=== PATIENT | male | born 1965 | race Caucasian/White ===

== ENCOUNTER → 2020-07-06 13:48 | Outpatient (CLI) | payer BC, SELFPAY ==
--- NOTE | ~2020-07-06 | US_ITS ---
EXAMINATION: US renal BI EXAM DATE: 07/06/2020 14:06 INDICATION: Hematuria, CKD Stage 1. TECHNIQUE: Multiple grayscale and Doppler images of the kidneys were obtained (by a technologist who performed the scan) and subsequently reviewed. There is no prior study for comparison. FINDINGS: Right kidney: There is normal contour and echogenicity. It measures 13.0 x 6.5 x 7.0 centimeters. T here are no focal renal lesions identified. There is no hydronephrosis. Left kidney: There is normal contour and echogenicity. It measures 11.4 x 6.2 x 6.4 centimeters. Th ere are no focal renal lesions identified. There is no hydronephrosis. Bladder unremarkable. There is diffuse bladder wall mild thickening, with trabecular wall, could ind icate chronic cystitis. IMPRESSION: 1. Sonographically unremarkable kidneys. 2. Mild bladder wall thickening, trabeculation, could indicate chronic cystitis. Reviewed, dictated and finalized at location A. [employer] IMPRESSION: 1. Sonographically unremarkable kidneys. 2. Mild bladder wall thickening, trabeculation, could indicate chronic cystiti s.
== END ==
PROVIDERS: PCP Internal Medicine; Visit Provider Internal Medicine
DX: R31.9 Hematuria, unspecified (principal); I12.9 Hypertensive chronic kidney disease with stage 1 through stage 4 chronic kidney disease, or unspecified chronic kidney disease; N18.31 Chronic kidney disease, stage 3a
CPT/HCPCS: 76775

== ENCOUNTER 2020-08-02 14:06 | Outpatient (CLI) | payer BC, SELFPAY ==
--- NOTE | ~2020-08-02 | XR_ITS ---
XR abdomen/kub 1V DATE: 08/02/2020 14:40 INDICATION: Microscopic hematuria TECHNIQUE: AP projection, 2 views COMPARISON: August 02, 2020 CT abdomen pelvis FINDINGS: There is moderately prominent amount of fecal material in the rectum and colon but no appar ent bowel obstruction. The psoas shadows are intact. No visceromegaly or significant abnormal calcification is evident. The lung bases appear clear. Heart size appears normal. IMPRESSION: No urinary tract calcifications are noted Moderately prominent amount of fecal material in the rectum and colon Reviewed, dictated and finalized at [facility]. Reviewed, dictated and finalized at location B. [employer]
--- NOTE | ~2020-08-02 | CT_ITS ---
EXAMINATION: CT abdomen pelvis wo con DATE: 08/02/2020 15:19 INDICATION: Microscopic hematuria TECHNIQUE: Computed tomography (CT) of the abdomen and pelvis was performed without intravenous contr ast. Automated exposure control and iterative reconstruction technique were employed. Exam dose: 814 .45 mGy-cm total exam DLP. COMPARISON: 07/06/2020 bilateral renal ultrasound August 02, 2020 KUB FINDINGS: Right lower lobe calcified pulmonary granuloma. No pulmonary infiltrate or consolidation at the included lung bases. Normal heart size. No pericardial or pleural effusion. Small sliding hiatal hernia. Calcified hepatic and splenic granulomas. The liver, gallbladder, bile ducts, spleen, pancreas and pa ncreatic duct are otherwise unremarkable. Normal morphology of the adrenal glands. No urinary tract calculus or hydroureteronephrosis is detected. No renal mass lesion is evident on this limited noncontrast examination. Normal caliber of the abdominal aorta. No intraperitoneal or retroperitoneal or pelvic mass lesion or adenopathy or ascites. Normal appendix. Mild prostate enlargement and multiple prostate calcifications. Mild to moderate diffuse thickening o f the urinary bladder wall. There is a prominent amount of fecal material in the rectum and colon. Occasional colonic diverticula ; no evidence of diverticulitis. No bowel obstruction is evident. No bowel wall thickening, pneumatos is or intraperitoneal free air. Prominent degenerative disc disease and posterior spurring at L4-5. No suspicious osteolytic or osteoblastic lesions are noted. IMPRESSION: No urinary tract calculus or hydroureteronephrosis No apparent urinary tract mass lesion is evident on this limited noncontrast examination Mild prostate enlargement and calcification. Mild to moderate thickening of the urinary bladder wall Reviewed, dictated and finalized at [facility]. Reviewed, dictated and finalized at location B. [employer] IMPRESSION: No urinary tract calculus or hydroureteronephrosis No apparent urinary tract mass lesion is evident on this limited noncontrast ex amination Mild prostate enlargement and calcification. Mild to moderate thickening of the urinary bladder wall
[2020-08-02 14:47] LABS: Estimated Glomerular Filt Rate 26
== END 2020-08-02 14:07 | disposition home or self-care (01) ==
PROVIDERS: PCP Internal Medicine; Visit Provider Urology
DX: R31.29 Other microscopic hematuria (principal); N40.1 Benign prostatic hyperplasia with lower urinary tract symptoms
CPT/HCPCS: 74018; 74176

== ENCOUNTER 2022-02-01 00:10 | Day surgery (SDC) | payer BC, SELFPAY ==
[2022-01-25 11:26] VITALS: BMI 30.9
[2022-02-01 10:15] LABS: Glucose Point of Care 108 mg/dl (65-105)
[2022-02-01] MEDS: LACTATED RINGERS 1,000 ML 150 ML IV CONT (10:20)
--- NOTE | 2022-02-01 10:33 | PM.HPGS ---
History of Present Illness History of Present Illness Consent: Risks, benefits, and alternatives have been discussed and questions answered. Patient agrees to proceed with procedure. Chief complaint: neoplasm screening Narrative: Savage Yun is a 56 year old male here for first screening colonoscopy Review of Systems Constitutional: Constitutional: Denies headache(s) and Denies weakness Eyes: Eyes: Denies blurry vision ENT: Reports Normal hearing present, Denies headache(s) and Denies neck pain Cardiovascular: Cardiovascular: Denies chest pain and Denies dyspnea Respiratory: Respiratory: Denies dyspnea Gastrointestinal: Gastrointestinal: Reports no additional gastrointestinal complaints Genitourinary: Genitourinary: Denies dysuria Musculoskeletal: Musculoskeletal: Denies neck pain Integumentary/Breasts: Skin/Breast: Denies dry skin Neurologic: Reports Normal hearing present, Denies headache(s) and Denies weakness Psychiatric: Psychiatric: Denies anxiety Endocrine: Endocrine: Denies change in body appearance Hematologic/Lymphatic: Hematologic/Lymphatic: Denies easy bleeding Allergic/Immunologic: Allergic/Immunologic: Denies urticaria PMF Past Medical History Medical History (Updated 02/01/22 @ 10:34 by Davis Resendiz MD) Colon cancer screening Family History Family History (Updated 01/12/16 @ 23:19 by DOCTOR UNKNOWN) Mother Carcinoma of colon Father Family history of diabetes mellitus in first degree relative Grandparent Diabetes mellitus Social History Social History Smoking packs per day: 0.5 Smoking cigarettes per day: 10.0 Years smoked: 30 Smoking pack-years: 15.00 Smoking status: Current every day smoker Tobacco type: cigarettes Alcohol intake: never Substance use: never Substance use type: does not use Living arrangements: with family Additional living arrangements comments: sons live with him Spiritual care concerns: No Meds Home Medications and Allergies Home Medications Medication Instructions Recorded Confirmed Type amlodipine 10 mg tablet 10 mg PO DAILY 01/25/22 01/25/22 History atorvastatin 80 mg tablet 80 mg PO DAILY 01/25/22 01/25/22 History carvedilol 25 mg tablet 25 mg PO BID 01/25/22 01/25/22 History clopidogrel 75 mg tablet 75 mg PO DAILY 01/25/22 01/25/22 History escitalopram oxalate 10 mg tablet 10 mg PO DAILY 01/25/22 01/25/22 History insulin glargine 100 unit/mL 10 unit subcut HS 01/25/22 01/25/22 History subcutaneous solution (Lantus U-100 Insulin) lisinopril 40 mg tablet 40 mg PO DAILY 01/25/22 01/25/22 History spironolactone 25 mg tablet 25 mg PO DAILY 01/25/22 01/25/22 History Allergies Allergy/AdvReac Type Severity Reaction Status Date / Time Penicillins Allergy Unknown Unknown Verified 02/01/22 10:06 Exam Const: General: comfortable and no acute distress HENMT: General nose exam: Normal nares present Eyes: General: appearance normal, both eyes and all related structures Neck: Neck: no JVD Resp: Auscultation: clear to auscultation bilaterally Cardio: Rate: regular rate Rhythm: regular rhythm GI: Inspection: non-distended GI Palp: Yes Soft to palpation Skin: General skin exam: normal color Neuro: General: gait normal Speech: normal speech Extrem: General: normal to inspection Psych: Mental Status: mental status grossly normal Assessment and Plan Assessment and plan (1) Colon cancer screening: Code(s): Z12.11 - Encounter for screening for malignant neoplasm of colon Status: Acute Assessment and Plan: colonoscopy
--- NOTE | 2022-02-01 11:00 | P.PNAN_ITS ---
Anes - Initial Pre Proc Eval Procedure: Operation Date: 02/01/22 12:30 Proposed Procedures p Screening Colonoscopy - Davis Resendiz MD Date/Time: 02/01/22 11:00 Surgeon: Davis Resendiz MD Pre Op Diagnosis: neoplasm screening Patient Data Age: 56 Gender: M Height: 1.78 m Weight: 96.7 kg Allergies Allergy/AdvReac Type Severity Reaction Status Date / Time Penicillins Allergy Unknown Unknown Verified 02/01/22 10:06 Home Medications Medication Instructions Recorded Confirmed Type amlodipine 10 mg tablet 10 mg PO DAILY 01/25/22 01/25/22 History atorvastatin 80 mg tablet 80 mg PO DAILY 01/25/22 01/25/22 History carvedilol 25 mg tablet 25 mg PO BID 01/25/22 01/25/22 History clopidogrel 75 mg tablet 75 mg PO DAILY 01/25/22 01/25/22 History escitalopram oxalate 10 mg tablet 10 mg PO DAILY 01/25/22 01/25/22 History insulin glargine 100 unit/mL 10 unit subcut HS 01/25/22 01/25/22 History subcutaneous solution (Lantus U-100 Insulin) lisinopril 40 mg tablet 40 mg PO DAILY 01/25/22 01/25/22 History spironolactone 25 mg tablet 25 mg PO DAILY 01/25/22 01/25/22 History Laboratory Tests 02/01/22 10:13 POC Capillary Glucose 108 mg/dl H mg/dl (65-105) Patient hx anesthesia problems: none Family hx anesthesia problems: none Results Review: All pre-operative results and documents have been reviewed as part of the pre- operative evaluation. [facility] Past Medical History Medical History (Updated 02/01/22 @ 10:34 by Davis Resendiz MD) Colon cancer screening Family History Family History (Updated 01/12/16 @ 23:19 by DOCTOR UNKNOWN) Mother Carcinoma of colon Father Family history of diabetes mellitus in first degree relative Grandparent Diabetes mellitus Social History Social History Smoking packs per day: 0.5 Smoking cigarettes per day: 10.0 Years smoked: 30 Smoking pack-years: 15.00 Smoking status: Current every day smoker Tobacco type: cigarettes Alcohol intake: never Substance use: never Substance use type: does not use Living arrangements: with family Additional living arrangements comments: sons live with him Spiritual care concerns: No Anes - Eval Final PreProcedure Day of Procedure 02/01/22 11:00 Patient weight: overweight Heart: regular rate and rhythm Lungs: clear to auscultation Airway: Mallampati scale class II Neurological: alert and oriented Last oral intake: >/= 8 hours ASA classification: III Emergent: no Anesthetic plan: proceed Anesthesia type and monitoring: general GIVS and standard monitoring Results Review: All pre-operative results and documents have been reviewed as part of the pre- operative evaluation. Informed Consent: The patient's anesthetic plan and its attendant risks and benefits were discussed with the patient/family/POA. Questions were solicited and answers provided to the satisfaction of the patient/family/POA.
[2022-02-01 11:42] VITALS: BP 158/89; PULSE 59; RESP 14; O2SAT 97
[2022-02-01 11:52] VITALS: BP 159/90; PULSE 58; RESP 16; O2SAT 97
[2022-02-01 12:02] VITALS: BP 165/100; PULSE 66; RESP 20; O2SAT 100
[2022-02-01 12:12] LABS: Glucose Point of Care 103 mg/dl (65-105)
== END 2022-02-01 12:15 | disposition home or self-care (01) ==
PROVIDERS: PCP Internal Medicine; Visit Provider Internal Medicine Gastroenterology
PROC: 0DJD8ZZ Inspection of Lower Intestinal Tract, Via Natural or Artificial Opening Endoscopic (ICD-10-PCS; CPT 45378; principal; 2022-02-01 12:30)
DX: Z12.11 Encounter for screening for malignant neoplasm of colon (principal); D12.3 Benign neoplasm of transverse colon; K63.5 Polyp of colon; K57.30 Diverticulosis of large intestine without perforation or abscess without bleeding; K64.8 Other hemorrhoids; F17.210 Nicotine dependence, cigarettes, uncomplicated; Z79.02 Long term (current) use of antithrombotics/antiplatelets; Z79.4 Long term (current) use of insulin
CPT/HCPCS: 45385; 82948; 88305; J2704; J7120

== ENCOUNTER → 2022-11-01 08:53 | Outpatient (CLI) | payer BC, SELFPAY ==
--- NOTE | ~2022-11-01 | US_ITS ---
US abdomen complete EXAMINATION: US Abdomen Complete INDICATION: Abdomen pain PROCEDURE: Realtime High Resolution abdomen ultrasound. COMPARISON: No prior studies for comparison FINDINGS: There are echogenic foci in the gallbladder lumen which are mobile per ultrasound technolog ist, consistent with stones. Common bile duct measures 3 mm. Liver echotexture within normal limits without focal mass. Pancreas within normal limits. Pancreati c tail is obscured by bowel gas. Spleen is unremarkeable. Renal echotexture is within normal limits bilaterally without hydronephrosis, contour deforming mass or renal stone. Right kidney measures 10.5 cm. Left kidney measures 11 cm. Visualized aspects of the aorta and IVC are within normal limits. Portal vein is patent. No sonograph ic Gaitan's sign indicated by the technologist. IMPRESSION: 1: Cholelithiasis. Reviewed, dictated and finalized at location B. IMPRESSION: 1: Cholelithiasis.
== END ==
PROVIDERS: PCP Internal Medicine; Visit Provider Internal Medicine
DX: R10.9 Unspecified abdominal pain (principal); K80.20 Calculus of gallbladder without cholecystitis without obstruction
CPT/HCPCS: 76700

== ENCOUNTER 2022-11-15 11:50 | Inpatient (IN) | payer BC, SELFPAY ==
--- NOTE | ~2022-11-15 | XR_ITS ---
EXAMINATION: XR chest 1V portable DATE: 11/15/2022 15:55 INDICATION: Hypertension. TECHNIQUE: A single frontal view of the chest was obtained. COMPARISON: CT abdomen and pelvis 08/02/2020 FINDINGS: There is mild atelectasis in left lower lung zone. There is a diffuse interstitial pattern, consistent mild pulmonary edema. No pleural effusion or pneumothorax. The heart size is normal. Calc ified left hilar lymph nodes are consistent with old granulomatous disease. IMPRESSION: 1. Mild pulmonary edema. Reviewed, dictated and finalized at location A. IMPRESSION: 1. Mild pulmonary edema.
--- NOTE | ~2022-11-15 | US_ITS ---
EXAMINATION: US renal BI DATE: 11/15/2022 19:52 INDICATION: Acute renal failure TECHNIQUE: Multiple ultrasound grayscale images of the kidneys were obtained. COMPARISON: Ultrasound dated 07/06/[address] dated 08/02/2020 FINDINGS: The right kidney measures 11.1 x 5.3 x 6.4 cm. The left kidney measures 11.2 x 5.8 x 5.5 cm. The kidn eys demonstrate normal echogenicity. There is no hydronephrosis in either kidney. No stones identifi ed. There is a band of soft tissue projecting into the lumen which extends along the right side of th e bladder wall which on prior CT appears to represent a fold in the bladder wall. IMPRESSION: 1. Normal kidneys without hydronephrosis. 2. Chronic bandlike filling defect along the right side of the bladder which on CT from 2 years prior appears to represent a fold in the bladder wall. Reviewed, dictated and finalized at location A.
[2022-11-15 12:06] VITALS: BP 202/109; PULSE 83; RESP 18; TEMP 36.6; O2SAT 100
--- NOTE | 2022-11-15 15:42 | ED.RECABL ---
HPI - Recheck/Abnormal Lab/Rx General Chief Complaint: Recheck/Abnormal Lab/Rx Stated Complaint: abnormal lab results Time Seen by Provider: 11/15/22 15:42 Source: patient and family Mode of arrival: ambulatory Limitations: no limitations History of Present Illness HPI narrative: 57 years old white male referred to the emergency room because of elevated creatinine. Patient was seen by his family physician 2 weeks ago with abdominal pain, and the vomiting, blood work-up at that time showed elevated creatinine, patient went for a follow-up today and then referred to our emergency room for further evaluation. Patient reports vomiting once in the middle of the night, he denies any fever, chills,, diarrhea, chest pain, shortness of breath, headache. Patient stating me that he takes his medication on time. 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 Currently patient is asymptomatic. Related Data Home Medications Medication Instructions Recorded Confirmed amlodipine 10 mg tablet 10 mg PO DAILY 01/25/22 01/25/22 atorvastatin 80 mg tablet 80 mg PO DAILY 01/25/22 01/25/22 carvedilol 25 mg tablet 25 mg PO BID 01/25/22 01/25/22 clopidogrel 75 mg tablet 75 mg PO DAILY 01/25/22 01/25/22 escitalopram oxalate 10 mg tablet 10 mg PO DAILY 01/25/22 01/25/22 insulin glargine 100 unit/mL 10 unit subcut HS 01/25/22 01/25/22 subcutaneous solution (Lantus U-100 Insulin) lisinopril 40 mg tablet 40 mg PO DAILY 01/25/22 01/25/22 spironolactone 25 mg tablet 25 mg PO DAILY 01/25/22 01/25/22 Allergies Allergy/AdvReac Type Severity Reaction Status Date / Time Penicillins Allergy Unknown Unknown Verified 02/01/22 10:06 Review of Systems Review of Systems: All systems reviewed & are unremarkable except as noted in HPI and below PMFSH Past Medical History Medical History Colon cancer screening Family History Family History Mother Carcinoma of colon Father Family history of diabetes mellitus in first degree relative Grandparent Diabetes mellitus Social History Social History Smoking packs per day: 0.5 Smoking cigarettes per day: 10.0 Years smoked: 30 Smoking pack-years: 15.00 Smoking status: Current every day smoker Tobacco type: cigarettes Alcohol intake: never Substance use: never Substance use type: does not use Living arrangements: with family Additional living arrangements comments: sons live with him Spiritual care concerns: No Exam Narrative: General appearance: Well-developed, well-nourished Skin: Normal color Head: Normocephalic, nontraumatic Eyes: Clear conjunctiva ENT: Oropharynx normal, ears normal, nose normal Neck: Supple, nontender Chest and respiratory: Airway patent, no respiratory distress, no accessory muscle use Heart: Regular rate/rhythm Abdomen: Soft, nontender, no organomegaly, quiet bowel sounds Vascular: Normal peripheral pulses, normal capillary refill. Musculoskeletal: Normal range of motion, nontender back Neurologic: Alert and oriented ?3, [employer] is normal as tested, no gross motor deficit Course Reevaluation(s) Reevaluation #1: Patient still asymptomatic. Was notified about the blood work-up today and agreed for admission. Date: 11/15/22 Time: 16:50 Consultations Consultation #1: DR JOHNSON Date: 11/15/22 Time: 17:03 Vital Signs Vital signs: Vital Signs Temperature 36.6 C 11/15/22 12:06
--- NOTE | 2022-11-15 15:45 | ECG_ITS ---
Measurements Intervals [place] Rate: 73 P: 4 ND: 185 QRS: -33 QRSD: 115 T: 130 QT: 385 QTc: 426 Interpretive Statements SINUS RHYTHM WITH OCCASIONAL VENTRICULAR PREMATURE COMPLEXES POSSIBLE LEFT ATRIAL ENLARGEMENT [-0.1mV P WAVE IN V1/V2] MARKED LEFT AXIS DEVIATION [QRS AXIS < -30] LEFT VENTRICULAR HYPERTROPHY AND ST-T CHANGE [VOLTAGE CRITERIA PLUS ST/T ABNORMALITY] COMPARED TO ECG 02/18/2019 08:20:13 NO SIGNIFICANT CHANGES Electronically Signed On 11-16-2022 9:37:05 CDT by rBian Michelle M.D.
[2022-11-15 15:53] LABS: Basophils Absolute Auto 0.1 K/mm3 (0.0-0.1); Basophils Percent Auto 0.6 % (0.2-1.2); Eosinophils Absolute Auto 0.2 K/mm3 (0-0.3); Eosinophils Percent Auto 2.6 % (0-4.4); Hematocrit 36.4 % (42.0-52.0); Hemoglobin 12.1 g/dL (14.0-18.0); Immature Granulocyte Absolute 0.03 K/mm3 (0.00-0.031); Immature Granulocyte Percent A 0.4 % (0-0.5); Lymphocytes Absolute Auto 1.25 K/mm3 (0.9-3.2); Lymphocytes Percent Auto 16.2 % (18.3-44.2); Mean Corpuscular HGB Conc 33.2 g/dl (32-36); Mean Corpuscular Volume 87.3 fl (80-100); Mean Platelet Volume 11.5 fl (7.4-10.4); Monocytes Absolute Auto 0.6 K/mm3 (0.1-0.6); Monocytes Percent Auto 7.9 % (2.6-8.5); Neutrophils Absolute Auto 5.6 K/mm3 (1.3-6.7); Neutrophils Percent Auto 72.3 % (45.5-73.1); Platelet Count Result 196 k/mm3 (150-375); Red Blood Count 4.17 M/mm3 (4.6-6.20); Red Cell Distribution Width 13.6 % (11.5-14.5); White Blood Count 7.7 K/mm3 (4.5-10.0)
[2022-11-15 15:57] LABS: Appearance Urine Clear (Clear); Bacteria Urine None Seen /hpf; Bilirubin Urine Negative (Negative); Blood Urine 1+ (Negative); Color Urine Yellow (Yellow); Glucose Urine UA 1+ mg/dL (Negative); Ketones Urine Negative (Negative); Leukocyte Esterase Ur Negative LEU/UL (Negative); Nitrate Urine Negative (Negative); Non Pathogenic Casts 0-2; Protein Urine 3+ mg/dL (Negative); RBC Urine 0-2 /hpf (0-2); Specific Grav Ur 1.011 (1.001-1.035); Squamous Epithelial Cell Urine None seen /hpf (Few); Urobilinogen Urine 0.2 mg/dL (<2.0); WBC Urine 0-5 /hpf; pH Urine 6.5 (5.0-9.0)
[2022-11-15 16:03] LABS: Add Urine Microscopic? YES
[2022-11-15] MEDS: LABETALOL HCL INJ 100 MG/20 ML VIAL 20 MG IV PUSH (16:04)
[2022-11-15 16:07] LABS: Prothrombin Time 13.8 Seconds (11.1-14.7)
[2022-11-15 16:10] LABS: Alanine Aminotransferase 20 U/L (6-50); Albumin Level 4.5 g/dL (3.5-5.1); Alkaline Phosphatase 94 U/L (38-126); Anion Gap 11 mmol/L (8-16); Aspartate Amino Transferase 23 U/L (17-59); Bilirubin,Total 0.8 mg/dL (0.2-1.3); Blood Urea Nitrogen 58 mg/dL (9-20); Calcium 8.1 mg/dL (8.4-10.2); Carbon Dioxide 25 mmol/L (22-30); Chloride 101 mmol/L (98-107); Estimated CRCL calculation 14 ml/min; Estimated Glomerular Filt Rate 11; Glucose 118 mg/dL (65-110); Magnesium 2.2 mg/dL (1.6-2.3); Potassium 3.7 mmol/L (3.4-5.0); Sodium 137 mmol/L (137-145)
[2022-11-15 16:18] LABS: NT Pro B Type Natriuretic Pept 9780 pg/mL (19.9-100)
[2022-11-15 16:53] VITALS: BP 173/93; PULSE 66; RESP 17; O2SAT 99
[2022-11-15 17:31] VITALS: BP 170/97; PULSE 65; RESP 18; O2SAT 99
--- NOTE | 2022-11-15 18:02 | PM.IMHP ---
H&P: HPI History of Present Illness Date/Time: 11/15/22 18:02 Chief Complaint: Abnormal lab Narrative: this is a 57-year-old male patient who came to the emergency room due to elevated creatinine. The patient was at his primary care doctor's office 2 weeks ago with abdominal pain and he was vomiting. His blood workup shows that he had elevated creatinine. Patient went for follow-up today and that is referred to the emergency room the patient reports vomiting once in the middle of night. He denies any fever chills or diarrhea. No shortness of breath. The patient stated that he has been taking his medications without difficulty. The patient stated he has not had any prior history of chronic kidney disease that he is aware of. He has a history of hypertension hyperlipidemia and a CVA without any residual damage. The patient does not take anti-platelet or anticoagulation medication. The patient continues to smoke cigarettes. He has no complaints at this time as sons are at the bedside. His H&H is 12.1 and 36.4 . patient's BUN is 58 creatinine is 5.6. Glucose is 118 and repeat glucose 181. The patient tells me that his glucose is typically the 80s to 90s at home. His renal ultrasound was read as the following?Normal kidneys without hydronephrosis. 2. Chronic bandlike filling defect along the right side of the bladder which on CT from 2 years prior appears to represent a fold in the bladder wall. the patient was given IV fluids and his blood pressure was 202/109. The patient was given labetalol in the emergency room. Nephrology has been consulted. The patient is being admitted to inpatient on the date of service of 11/15/2022. Review of Systems Review of Systems: All systems reviewed & are unremarkable except as noted in HPI and below Constitutional: Constitutional: Reports as per HPI and Reports no additional constitutional complaints Eyes: Eyes: Reports as per HPI and Reports no additional eye complaints ENT: Reports system reviewed and no additional complaints, except as documented and Reports Normal hearing present Cardiovascular: Cardiovascular: Reports no additional cardiovascular complaints Respiratory: Respiratory: Reports no additional respiratory complaints and Reports no additional respiratory complaints Gastrointestinal: Gastrointestinal: Reports as per HPI and Reports no additional gastrointestinal complaints Musculoskeletal: Musculoskeletal: Reports no additional musculoskeletal complaints Integumentary/Breasts: Skin/Breast: Reports system reviewed and no additional complaints, except as docu and Reports as per HPI Neurologic: Reports system reviewed and no additional complaints, except as documented, Reports as per HPI and Reports Normal hearing present Psychiatric: Psychiatric: Reports no additional psychiatric complaints and Reports as per HPI Endocrine: Endocrine: Reports no additional endocrine complaints Hematologic/Lymphatic: Hematologic/Lymphatic: Reports no additional hematologic/lymphatic complaints Allergic/Immunologic: Allergic/Immunologic: Reports no additional allergic/immunologic complaints [facility] Past Medical History Medical History (Updated 11/16/22 @ 02:19 by Erika Orourke NP) Anxiety Colon cancer screening CVA (cerebral vascular accident) Diabetes Hyperlipidemia Hypertension Surgical History Surgical History (Updated 11/15/22 @ 18:06 by Erika Orourke NP) H/O colonoscopy with polypectomy Family History Family History Mother Carcinoma of colon Father Family history of diabetes mellitus in first degree relative Grandparent Diabetes mellitus Social History Social History (Updated 11/16/22 @ 02:09 by Erika Orourke NP) Social History: He is currently from his and has 4 children . He works at the [employer]. he is retired from the [employer]. The patient continues to smoke approximately 4 ci
[2022-11-15 18:03] VITALS: BP 150/87; PULSE 66; RESP 14; O2SAT 98
--- NOTE | 2022-11-15 18:42 | ADMGEN ---
This patient, Savage Yun, was admitted to [facility] Surg Room 314-01. Patient/family oriented to hospital policies and general routines including ID bracelet, bed and alarms, visiting hours, pain management, procedures, bathroom and other care routines, personal items, smoking policy, room service/diet, and visiting hours. Information on how to activate the Rapid Response Team has been discussed. Patient/Family are encouraged to report perceived risks to care and to ask questions if they do not understand what they are told or what they should do.
[2022-11-15 18:47] VITALS: BP 169/87; PULSE 66; RESP 15; TEMP 35.8; O2SAT 98
[2022-11-15] MEDS: SODIUM CHLORIDE 0.9% IV 1,000 ML 125 ML IV CONT (20:24)
[2022-11-15 20:25] LABS: Glucose Point of Care 181 mg/dl (65-105)
[2022-11-15 21:41] VITALS: BP 154/81; PULSE 67; RESP 14; TEMP 36.6; O2SAT 95
--- NOTE | 2022-11-16 | ECHO_ITS ---
Patient Info Name: Savage Yun Age: 57 years : 1965 Gender: Male Ht: 68 in Wt: 225 lbs BSA: 2.25 m2 HR: 70 bpm BP: 189 / 99 mmHg Heart Rhythm: Sinus Rhythm Technical Quality: Fair Exam Date: 11/16/2022 11:07 AM Exam Location: [facility] Patient Status: Inpatient Admit Date: 11/15/2022 Staff Ordering Physician: Erika Orourke NP [facility] Partner: Nelda Santoro RDCS Attending Provider: Finesse Long MD Referring Physician: Sharad AVILA; Exam Type: CA echo doppler color flow Study Info Indications - pulmonary hypertention Complete two-dimensional, color flow and Doppler transthoracic echocardiogram is performed. Summary 1. Complete two-dimensional, color flow and Doppler transthoracic echocardiogram is performed. 2. Left ventricular chamber dimension is mildly enlarged. 3. Left ventricular systolic function is normal, estimated at 50-55%. 4. There is mildly increased left ventricular wall thickness. 5. The left ventricular diastolic function is grade II diastolic dysfunction. 6. Right ventricular systolic function is normal. 7. Left atrial chamber dimension is moderately enlarged. 8. Right atrial chamber dimension is mildly enlarged. 9. The mitral valve annulus is severely calcified. 10. The mitral valve has thickened leaflets. 11. There is mild mitral valve regurgitation. 12. There is mild tricuspid valve regurgitation. 13. The aortic root size at the sinus of Valsalva is dilated. Left Ventricle Left ventricular chamber dimension is mildly enlarged. Left ventricular systolic function is normal, estimated at 50-55%. There is mildly increased left ventricular wall thickness. The left ventricular diastolic function is grade II diastolic dysfunction. Right Ventricle Right ventricular chamber dimension is normal. Right ventricular systolic function is normal. Left Atria Left atrial chamber dimension is moderately enlarged. Right Atria Right atrial chamber dimension is mildly enlarged. Atrial Septum Intact interatrial septum visualized by color flow imaging. Aortic Valve The aortic valve is probable trileaflet. There is no aortic valve stenosis. There is no aortic valve regurgitation. There is moderate aortic valve calcification. Pulmonic Valve The pulmonic valve is not well visualized. Mitral Valve The mitral valve has thickened leaflets. There is mild mitral valve regurgitation. The mitral valve annulus is severely calcified. Tricuspid Valve There is mild tricuspid valve regurgitation. Estimated pulmonary arterial systolic pressure is 31 mmHg. Pericardium/Pleural There is no pericardial effusion. Inferior Vena Cava Normal inferior vena cava with >50% collapse upon inspiration consistent with normal right atrial pressure, 3 mmHg. Aorta The aortic root size at the sinus of Valsalva is dilated. Left Ventricular Outflow Tract Name Value Normal LVOT 2D LVOT Diameter 2.1 cm LVOT Doppler LVOT Peak Gradient 4 mmHg LVOT Mean Gradient 2 mmHg LVOT VTI 22 cm LVOT VTI/AV VTI Ratio 0.5 LVOT Stroke Volume 76
[2022-11-16] MEDS: SODIUM CHLORIDE 0.9% IV 1,000 ML 125 ML IV CONT (05:20)
[2022-11-16] MEDS: hydrALAZINE HCL 20 MG/ML VIAL 10 MG IV PUSH (05:31)
[2022-11-16 05:59] VITALS: BP 182/95; PULSE 65; RESP 14; TEMP 36.1; O2SAT 99
[2022-11-16 06:43] LABS: Basophils Percent Auto 0.6 % (0.2-1.2); Eosinophils Absolute Auto 0.2 K/mm3 (0-0.3); Eosinophils Percent Auto 3.3 % (0-4.4); Hematocrit 34.8 % (42.0-52.0); Hemoglobin 11.7 g/dL (14.0-18.0); Immature Granulocyte Absolute 0.02 K/mm3 (0.00-0.031); Immature Granulocyte Percent A 0.3 % (0-0.5); Lymphocytes Absolute Auto 1.14 K/mm3 (0.9-3.2); Lymphocytes Percent Auto 17.1 % (18.3-44.2); Mean Corpuscular HGB Conc 33.6 g/dl (32-36); Mean Corpuscular Volume 86.1 fl (80-100); Mean Platelet Volume 11.2 fl (7.4-10.4); Monocytes Absolute Auto 0.6 K/mm3 (0.1-0.6); Monocytes Percent Auto 9.3 % (2.6-8.5); Neutrophils Absolute Auto 4.6 K/mm3 (1.3-6.7); Neutrophils Percent Auto 69.4 % (45.5-73.1); Platelet Count Result 190 k/mm3 (150-375); Red Blood Count 4.04 M/mm3 (4.6-6.20); Red Cell Distribution Width 13.5 % (11.5-14.5); White Blood Count 6.7 K/mm3 (4.5-10.0)
[2022-11-16 06:55] LABS: Lactic Acid Reflex 0.6 mmol/L (0.7-2.0)
[2022-11-16 06:56] LABS: Alanine Aminotransferase 18 U/L (6-50); Albumin Level 4.2 g/dL (3.5-5.1); Alkaline Phosphatase 90 U/L (38-126); Anion Gap 11 mmol/L (8-16); Aspartate Amino Transferase 21 U/L (17-59); Bilirubin,Total 0.9 mg/dL (0.2-1.3); Blood Urea Nitrogen 56 mg/dL (9-20); CRP 1.2 mg/dL (<1.0); Carbon Dioxide 23 mmol/L (22-30); Chloride 105 mmol/L (98-107); Creatine Kinase 144 U/L (55-170); Estimated CRCL calculation 14 ml/min; Estimated Glomerular Filt Rate 10; Glucose 107 mg/dL (65-110); Magnesium 2.2 mg/dL (1.6-2.3); Phosphorus 6.3 mg/dL (2.5-4.5); Potassium 4.2 mmol/L (3.4-5.0); Sodium 139 mmol/L (137-145)
[2022-11-16 06:57] LABS: Alanine Aminotransferase 18 U/L (6-50); Albumin Level 4.1 g/dL (3.5-5.1); Alkaline Phosphatase 86 U/L (38-126); Anion Gap 10 mmol/L (8-16); Aspartate Amino Transferase 21 U/L (17-59); Bilirubin,Total 0.8 mg/dL (0.2-1.3); Blood Urea Nitrogen 56 mg/dL (9-20); Calcium 8.1 mg/dL (8.4-10.2); Carbon Dioxide 23 mmol/L (22-30); Chloride 105 mmol/L (98-107); Estimated CRCL calculation 14 ml/min; Estimated Glomerular Filt Rate 10; Glucose 106 mg/dL (65-110); Lactate Dehydrogenase 207 U/L (120-246); Potassium 4.1 mmol/L (3.4-5.0); Sodium 138 mmol/L (137-145)
[2022-11-16 07:00] LABS: Complement C3 93 mg/dL (88-165)
[2022-11-16 07:34] LABS: HIV 1/2 Ab P24 Ag Result Negative (Negative)
[2022-11-16 07:42] LABS: Glucose Point of Care 117 mg/dl (65-105)
[2022-11-16 07:57] LABS: Erythrocyte Sedimentation Rate 62 mm/hr (0-20)
[2022-11-16 08:00] LABS: Hepatitis B Surface Antigen Negative (Negative)
[2022-11-16 08:05] LABS: Hepatitis B Core IgM Result Negative (Negative)
[2022-11-16 08:17] LABS: Hepatitis B Surface Anti Res Negative; Hepatitis C Virus Antibody Negative (Negative)
[2022-11-16 08:40] LABS: Hemoglobin A1C 5.9 % (<5.7)
[2022-11-16 08:48] VITALS: PULSE 74
[2022-11-16] MEDS: carvediloL 25 MG TABLET PO ×2 (08:48→20:53)
[2022-11-16] MEDS: CLOPIDOGREL BISULFATE 75 MG TABLET PO (08:50)
[2022-11-16] MEDS: ESCITALOPRAM OXALATE 10 MG TABLET PO (08:50)
[2022-11-16] MEDS: ATORVASTATIN 40 MG TABLET 80 MG PO (08:51)
[2022-11-16] MEDS: amLODIPine BESYLATE 5 MG TABLET 10 MG PO (08:51)
[2022-11-16] MEDS: ONDANSETRON INJ 4 MG/2 ML VIAL IV PUSH (08:55)
[2022-11-16 09:52] VITALS: BP 160/78
[2022-11-16 11:30] LABS: Glucose Point of Care 162 mg/dl (65-105)
--- NOTE | 2022-11-16 13:40 | PM.CNNEP ---
Assessment and Plan Assessment and plan (1) GURJIT (acute kidney injury): Code(s): N17.9 - Acute kidney failure, unspecified Status: Acute Assessment and Plan: acute insult or is this just progression of disease (?) tend to favot the latter but difficult to know for sure... however, no critical electrolytes, stable acid-base status, and no evidence of uremia or volume overload extensive serological testing pending creatinine remains relatively stable consider renal biopsy for definitive diagnosis (but he would have to be off plavix first) follow repeat labs and UOP (2) Chronic kidney disease, stage IV (severe): Code(s): N18.4 - Chronic kidney disease, stage 4 (severe) Status: Chronic Assessment and Plan: creatinine in September 2021 (from [facility] records) was 2.88mg/dl creatinine in Jul 2020 was 2.60mg/dl presumably due to poorly controlled hypertension with contributions from vascular disease (hx of CVA + hyperlipidemia) and diabetes (3) Hypertension: Qualifiers: Hypertension type: unspecified Qualified Code(s): I10 - Essential (primary) hypertension Code(s): I10 - Essential (primary) hypertension Status: Acute Assessment and Plan: poorly controlled on admission (and presumably as outpatient) doing better currently given his CKD, would avoid overcontrol for fear of causing renal hypoperfusion and worsening renal dysfunction would aim to keep systolic BP in the 150s - 160s for now PATIENCE-I and spirolactone on hold follow trend of hemodynaics (4) CVA (cerebral vascular accident): Code(s): I63.9 - Cerebral infarction, unspecified Status: Acute Assessment and Plan: known history no residual deficits on plavix (5) Diabetes: Code(s): E11.9 - Type 2 diabetes mellitus without complications Status: Acute Assessment and Plan: follow accu-cheks doing well as noted by A1c glycemic control per hospitalists Long and extensive discussion (greater than 25 min) with the patient regarding his renal dysfunction. Extensive testing is underway to assess acuity versus chronicity of his kidney disease although my suspicion is this is more likely progression of his underlying kidney disease as it has been present since at least 2020 if not longer. However, he has no critical electrolyte abnormalities and his volume status appears to be relatively stable with good urine output noted so there is no reason for urgent renal replacement therapy/dialysis at this time. However, he still has a very depressed GFR and remains at risk for this eventuality unless his kidney function improves. I also discussed with the patient the possibility of doing a renal biopsy for a definitive diagnosis of his renal dysfunction although this will be challenging since he is on Plavix. If his renal function remains stable, we could consider outpatient follow-up with regard to his pending testing as well as consideration of an outpatient renal biopsy after holding Plavix for appropriate duration. I will continue to follow patient with you while he remains hospitalized to make further recommendations as deemed necessary. Thank you for allowing me to participate in the care of this patient. History of Present Illness Reason for Consult Consult date: 11/16/22 Reason for consult: acute renal failure (on chronic kidney disease [versus progression of kidney disease]) Chief Complaint Chief complaint: gurjit, uncontrolled hypertension History of Present Illness Narrative: The patient is a 57-year-old male with a past medical history as outlined below who presented to the emergency room for further evaluation of abnormal labs. The patient has stabbed list care with a new primary care physician about two weeks ago where he had complaints of abdominal pain and vomiting. He had recent blood work done just prior to his presentation to the emergency room félix
[2022-11-16 14:00] VITALS: BP 143/88; PULSE 65; RESP 14; TEMP 36.1; O2SAT 98
[2022-11-16] MEDS: hydrALAZINE 10 MG TABLET PO (16:14)
[2022-11-16 17:21] LABS: Glucose Point of Care 192 mg/dl (65-105)
[2022-11-16 18:12] LABS: Creatinine Urine 62.8 mg/dL; Urea Random Urine 457 MG/DL
[2022-11-16 18:13] LABS: Creatinine Urine 63.2 mg/dL
[2022-11-16 18:15] LABS: Sodium Urine Random 68 meq/L
[2022-11-16 18:22] LABS: Total Protein Urine Random 309 mg/dL; Ur Ttl Prot Creatinine Ratio 4.92 mg/mg (0-0.20)
[2022-11-16 18:41] LABS: Eosinophil Urine None Seen % (None Seen); Urine Eos QC 2nd Tech Confirmed
[2022-11-16 20:53] VITALS: PULSE 66
[2022-11-16 22:00] VITALS: BP 168/94; PULSE 66; RESP 16; TEMP 36.4; O2SAT 98
[2022-11-16 23:33] LABS: Glucose Point of Care 155 mg/dl (65-105)
[2022-11-17] VITALS (7 sets, daily range): BP systolic 155–167; BP diastolic 84–94; PULSE 59–66; RESP 16–18; TEMP 36.1–36.3; O2SAT 98–99
[2022-11-17] MEDS: SODIUM CHLORIDE 0.9% IV 1,000 ML 125 ML IV CONT ×2 (05:11→15:32)
[2022-11-17 06:14] LABS: Hematocrit 31.1 % (42.0-52.0); Hemoglobin 10.5 g/dL (14.0-18.0); Mean Corpuscular HGB Conc 33.8 g/dl (32-36); Mean Corpuscular Hemoglobin 29.4 pg (26-34); Mean Corpuscular Volume 87.1 fl (80-100); Platelet Count Result 160 k/mm3 (150-375); Red Blood Count 3.57 M/mm3 (4.6-6.20); Red Cell Distribution Width 13.5 % (11.5-14.5); White Blood Count 7.2 K/mm3 (4.5-10.0)
[2022-11-17 06:24] LABS: Albumin Level 3.6 g/dL (3.5-5.1); Anion Gap 8 mmol/L (8-16); Blood Urea Nitrogen 63 mg/dL (9-20); Calcium 7.7 mg/dL (8.4-10.2); Carbon Dioxide 22 mmol/L (22-30); Chloride 107 mmol/L (98-107); Creatine Kinase 127 U/L (55-170); Estimated CRCL calculation 14 ml/min; Estimated Glomerular Filt Rate 10; Glucose 112 mg/dL (65-110); Phosphorus 6.2 mg/dL (2.5-4.5); Potassium 4.5 mmol/L (3.4-5.0); Sodium 137 mmol/L (137-145)
[2022-11-17 07:57] LABS: Glucose Point of Care 112 mg/dl (65-105)
[2022-11-17] MEDS: ESCITALOPRAM OXALATE 10 MG TABLET PO (08:55)
[2022-11-17] MEDS: CLOPIDOGREL BISULFATE 75 MG TABLET PO (08:55)
[2022-11-17] MEDS: amLODIPine BESYLATE 5 MG TABLET 10 MG PO (08:55)
[2022-11-17] MEDS: ATORVASTATIN 40 MG TABLET 80 MG PO (08:56)
[2022-11-17] MEDS: carvediloL 25 MG TABLET PO ×2 (08:56→20:15)
[2022-11-17] MEDS: hydrALAZINE 10 MG TABLET PO ×2 (08:56→16:42)
[2022-11-17 11:45] LABS: Glucose Point of Care 165 mg/dl (65-105)
--- NOTE | 2022-11-17 12:11 | PM.IMPN ---
Progress Note: A&P Assessment and Plan (1) Acute kidney injury superimposed on chronic kidney disease: Code(s): N17.9 - Acute kidney failure, unspecified; N18.9 - Chronic kidney disease, unspecified Status: Acute Assessment and Plan: (2) CVA (cerebral vascular accident): Code(s): I63.9 - Cerebral infarction, unspecified Status: Acute Assessment and Plan: No residual noted. Continue with Plavix (3) Anxiety: Code(s): F41.9 - Anxiety disorder, unspecified Status: Acute Assessment and Plan: continue with Lexapro (4) Diabetes: Code(s): E11.9 - Type 2 diabetes mellitus without complications Status: Acute Assessment and Plan: Accu-Cheks AC and HS with sliding scale insulin. Check A1c. The patient does not appear to be on any diabetic medication at this time. (5) Hyperlipidemia: Code(s): E78.5 - Hyperlipidemia, unspecified Status: Acute Assessment and Plan: Continue with atorvastatin (6) Hypertension: Qualifiers: Hypertension type: unspecified Qualified Code(s): I10 - Essential (primary) hypertension Code(s): I10 - Essential (primary) hypertension Status: Acute Assessment and Plan: p.r.n. hydralazine hold spironolactone and lisinopril at this time due to acute renal failure. Continue Coreg. Continue Norvasc. Current blood pressure is now 154/81. Plan 11/16/2022:57-year-old presented with abnormal labs noted to have elevated creatinine. Patient presented 2 weeks ago with abdominal pain and vomiting blood. Patient reports vomiting associated with nausea. Diarrhea history of hypertension hyperlipidemia history of stroke in the past without any residual not on any antiplatelet or anticoagulation. Also has type 2 diabetes was on insulin and metformin not been tapered off to only insulin. Blood sugar has been well controlled. Was noted to be hypertensive on arrival to the ER. Creatinine noted to be 5.22 July 2020 creatinine was 2.6. BNP elevated at 9780 received IV labetalol urinalysis with proteinuria chest x-ray with mild pulmonary edema EKG with left axis deviation left ventricular hypertrophy. Admitted for further evaluation and management. Nephrology has been consulted from the ER. Stop spironolactone and lisinopril. A1c came back at 5.9. Phosphorus is high. Has acute on chronic kidney disease. TSH normal protein electrophoresis pending no anemia present. REKHA/ Anca /[place] antibody /anti DNA/glomerular basement membrane antibody/complement pending. Hepatitis panel is negative. Anti streptolysin screen pending. Renal ultrasound with normal kidneys without hydronephrosis. Chronic bandlike filling defect along the right side of the bladder which represented fold of the bladder wall in previous CT. Previous CT with mild prostatic enlargement and multiple prostate calcification. Continue IV fluids as ordered looks dry clinically. Urinalysis with protein urea and no hematuria. Accelerated hypertension patient on amlodipine 10 mg daily. Will add hydralazine cautiously for better control of blood pressure. Echo pending await nephrology evaluation. Monitor urine output. 1900 cc since admission 11/17/2022: 57-year-old presented with abnormal labs noted to have elevated creatinine. Patient presented 2 weeks ago with abdominal pain and vomiting blood. Patient reports vomiting associated with nausea. Diarrhea history of hypertension hyperlipidemia history of stroke in the past without any residual on plavix. Also has type 2 diabetes was on insulin and metformin not been tapered off to only insulin. Blood sugar has been well controlled. Was noted to be hypertensive on arrival to the ER. Creatinine noted to be 5.22 July 2020 creatinine was 2.6. BNP elevated at 9780 received IV labetalol urinalysis with proteinuria chest x-ray with mild pulmonary edema EKG with left axis deviation left ventricular
--- NOTE | 2022-11-17 13:16 | PM.PNNEP ---
Progress Note: A&P Assessment and Plan (1) GURJIT (acute kidney injury): Code(s): N17.9 - Acute kidney failure, unspecified Status: Acute Assessment and Plan: acute insult or is this just progression of disease (?) tend to favor the latter but difficult to know for sure... however, no critical electrolytes, stable acid-base status, and no evidence of uremia or volume overload extensive serological testing pending creatinine remains relatively stable consider renal biopsy for definitive diagnosis (but he would have to be off plavix first) follow repeat labs and UOP (2) Chronic kidney disease, stage IV (severe): Code(s): N18.4 - Chronic kidney disease, stage 4 (severe) Status: Chronic Assessment and Plan: creatinine in September 2021 (from [facility] records) was 2.88mg/dl creatinine in Jul 2020 was 2.60mg/dl presumably due to poorly controlled hypertension with contributions from vascular disease (hx of CVA + hyperlipidemia) and diabetes (3) Hypertension: Qualifiers: Hypertension type: unspecified Qualified Code(s): I10 - Essential (primary) hypertension Code(s): I10 - Essential (primary) hypertension Status: Acute Assessment and Plan: poorly controlled on admission (and presumably as outpatient) doing better currently given his CKD, would avoid overcontrol for fear of causing renal hypoperfusion and worsening renal dysfunction would aim to keep systolic BP in the 150s - 160s for now PATIENCE-I and spironolactone on hold follow trend of hemodynamics (4) CVA (cerebral vascular accident): Code(s): I63.9 - Cerebral infarction, unspecified Status: Acute Assessment and Plan: known history no residual deficits on plavix (5) Diabetes: Code(s): E11.9 - Type 2 diabetes mellitus without complications Status: Acute Assessment and Plan: follow accu-cheks doing well as noted by A1c glycemic control per hospitalists Would not be opposed to discharge tomorrow if renal function and blood pressure remains stable -- he can follow-up with me (or another senior production planner of his or PCP's choosing) to review pending serologies with repeat labs to assess stability of renal function; the decision with regard to a renal biopsy can be deferred as an outpatient as he would likely need to be off plavix for a few days prior to and after the procedure (due to risk of bleeding) if the procedure is deemed necessary. Will continue to follow. Subjective Date/time seen: 11/17/22 13:16 Interval history: Follow-up for acute kidney injury on chronic kidney disease (versus progression of chronic kidney disease). He appears to be doing reasonably well today; reasonable blood pressure control noted in the last 24 hours; renal function appears to be relatively stable at this time; otherwise, no apparent distress noted; no issues/events overnight or earlier this AM. Exam Narrative: General: WD/WN male in NAD Heart: normal S1 and S2; no rub Lungs: clear to auscultation Abdomen: soft, nontender, nondistended, positive bowel sounds Extremities: no cyanosis or clubbing; no edema Skin: warm and dry Objective Data Vital Signs Vital Signs: Vital Signs Temp Pulse Resp BP Pulse Ox O2 Del Method 11/17/22 13:00 97.2 F L 59 L 16 155/84 H 99 11/17/22 09:29 99 Room Air 11/17/22 08:56 66 11/17/22 06:00 97.0 F L 66 18 166/94 H 99 11/16/22 20:10 Room Air 11/16/22 22:00 97.6 F 66 16 168/94 H 98 11/16/22 20:53 66 Intake/Output Intake/Output: Intake & Output 11/14/22 11/15/22 11/16/22 11/17/22 23:59 23:59 23:59 23:59 Intake Total 3940 2070 Output Total 2150 1200 Balance 1790 870 Meds/Results Medications: Active Medications Generic Name Dose Route Start Last Admin Trade Name Freq PRN Reason Stop Dose Admin Albuterol 2 puff 11/16/22 02:11 Albute
--- NOTE | 2022-11-17 13:16 | P.PNNP_ITS ---
Progress Note: A&P Assessment and Plan (1) GURJIT (acute kidney injury): Code(s): N17.9 - Acute kidney failure, unspecified Status: Acute Assessment and Plan: * acute insult or is this just progression of disease (?) * tend to favor the latter but difficult to know for sure... * however, no critical electrolytes, stable acid-base status, and no evidence of uremia or volume overload * extensive serological testing pending * creatinine remains relatively stable * consider renal biopsy for definitive diagnosis (but he would have to be off plavix first) * follow repeat labs and UOP (2) Chronic kidney disease, stage IV (severe): Code(s): N18.4 - Chronic kidney disease, stage 4 (severe) Status: Chronic Assessment and Plan: * creatinine in September 2021 (from [facility] records) was 2.88mg/dl * creatinine in Jul 2020 was 2.60mg/dl * presumably due to poorly controlled hypertension with contributions from vascular disease (hx of CVA + hyperlipidemia) and diabetes (3) Hypertension: Qualifiers: Hypertension type: unspecified Qualified Code(s): I10 - Essential (primary) hypertension Code(s): I10 - Essential (primary) hypertension Status: Acute Assessment and Plan: * poorly controlled on admission (and presumably as outpatient) * doing better currently * given his CKD, would avoid overcontrol for fear of causing renal hypoperfusion and worsening renal dysfunction * would aim to keep systolic BP in the 150s - 160s for now * PATIENCE-I and spironolactone on hold * follow trend of hemodynamics (4) CVA (cerebral vascular accident): Code(s): I63.9 - Cerebral infarction, unspecified Status: Acute Assessment and Plan: * known history * no residual deficits * on plavix (5) Diabetes: Code(s): E11.9 - Type 2 diabetes mellitus without complications Status: Acute Assessment and Plan: * follow accu-cheks * doing well as noted by A1c * glycemic control per hospitalists Would not be opposed to discharge tomorrow if renal function and blood pressure remains stable -- he can follow-up with me (or another ham trimmer of his or PCP's choosing) to review pending serologies with repeat labs to assess stability of renal function; the decision with regard to a renal biopsy can be deferred as an outpatient as he would likely need to be off plavix for a few days prior to and after the procedure (due to risk of bleeding) if the procedure is deemed necessary. Will continue to follow. Subjective Date/time seen: 11/17/22 13:16 Interval history: Follow-up for acute kidney injury on chronic kidney disease (versus progression of chronic kidney disease). He appears to be doing reasonably well today; reasonable blood pressure control noted in the last 24 hours; renal function appears to be relatively stable at this time; otherwise, no apparent distress noted; no issues/events overnight or earlier this AM. Exam Narrative: General: WD/WN male in NAD Heart: normal S1 and S2; no rub Lungs: clear to auscultation Abdomen: soft, nontender, nondistended, positive bowel sounds Extremities: no cyanosis or clubbing; no edema Skin: warm and dry Objective Data Vital Signs Vital Signs: Vital Signs Temp Pulse Resp BP Pulse Ox O2 Del Method 11/17/22 13:00 97.2 F L 59 L 16 155/84 H 99 11/17/22 09:29 99 Ca
[2022-11-17 22:53] LABS: Glucose Point of Care 190 mg/dl (65-105)
[2022-11-18] MEDS: SODIUM CHLORIDE 0.9% IV 1,000 ML 75 ML IV CONT (04:23)
[2022-11-18 06:00] VITALS: BP 170/89; PULSE 63; RESP 16; TEMP 36.2; O2SAT 98
[2022-11-18 06:40] LABS: Basophils Percent Auto 0.6 % (0.2-1.2); Eosinophils Absolute Auto 0.2 K/mm3 (0-0.3); Eosinophils Percent Auto 3.4 % (0-4.4); Hematocrit 30.8 % (42.0-52.0); Hemoglobin 10.2 g/dL (14.0-18.0); Immature Granulocyte Absolute 0.02 K/mm3 (0.00-0.031); Immature Granulocyte Percent A 0.3 % (0-0.5); Lymphocytes Absolute Auto 1.13 K/mm3 (0.9-3.2); Lymphocytes Percent Auto 16.9 % (18.3-44.2); Mean Corpuscular HGB Conc 33.1 g/dl (32-36); Mean Corpuscular Hemoglobin 29.1 pg (26-34); Mean Platelet Volume 11.2 fl (7.4-10.4); Monocytes Absolute Auto 0.6 K/mm3 (0.1-0.6); Monocytes Percent Auto 8.8 % (2.6-8.5); Neutrophils Absolute Auto 4.7 K/mm3 (1.3-6.7); Platelet Count Result 155 k/mm3 (150-375); Red Cell Distribution Width 13.6 % (11.5-14.5); White Blood Count 6.7 K/mm3 (4.5-10.0)
[2022-11-18 06:51] LABS: Alanine Aminotransferase 18 U/L (6-50); Albumin Level 3.6 g/dL (3.5-5.1); Alkaline Phosphatase 76 U/L (38-126); Anion Gap 9 mmol/L (8-16); Aspartate Amino Transferase 20 U/L (17-59); Bilirubin,Total 0.6 mg/dL (0.2-1.3); Blood Urea Nitrogen 62 mg/dL (9-20); Calcium 7.4 mg/dL (8.4-10.2); Carbon Dioxide 21 mmol/L (22-30); Chloride 109 mmol/L (98-107); Estimated CRCL calculation 14 ml/min; Estimated Glomerular Filt Rate 11; Glucose 102 mg/dL (65-110); Magnesium 1.9 mg/dL (1.6-2.3); Potassium 4.3 mmol/L (3.4-5.0); Sodium 139 mmol/L (137-145)
[2022-11-18 07:41] LABS: Glucose Point of Care 105 mg/dl (65-105)
[2022-11-18 08:06] LABS: Glucose Point of Care 176 mg/dl (65-105)
[2022-11-18 09:11] VITALS: PULSE 62
[2022-11-18] MEDS: ESCITALOPRAM OXALATE 10 MG TABLET PO (09:11)
[2022-11-18] MEDS: carvediloL 25 MG TABLET PO (09:11)
[2022-11-18] MEDS: ATORVASTATIN 40 MG TABLET 80 MG PO (09:11)
[2022-11-18] MEDS: amLODIPine BESYLATE 5 MG TABLET 10 MG PO (09:11)
[2022-11-18] MEDS: hydrALAZINE 10 MG TABLET PO (09:11)
[2022-11-18] MEDS: CLOPIDOGREL BISULFATE 75 MG TABLET PO (09:12)
--- NOTE | 2022-11-18 11:03 | P.PNNP_ITS ---
Progress Note: A&P Assessment and Plan (1) GURJIT (acute kidney injury): Code(s): N17.9 - Acute kidney failure, unspecified Status: Acute Assessment and Plan: * acute insult or is this just progression of disease (?) * tend to favor the latter but difficult to know for sure... * however, no critical electrolytes, stable acid-base status, and no evidence of uremia or volume overload * extensive serological testing pending * creatinine remains relatively stable * consider renal biopsy for definitive diagnosis (but he would have to be off plavix first) * follow repeat labs and UOP (2) Chronic kidney disease, stage IV (severe): Code(s): N18.4 - Chronic kidney disease, stage 4 (severe) Status: Chronic Assessment and Plan: * creatinine in September 2021 (from [facility] records) was 2.88mg/dl * creatinine in Jul 2020 was 2.60mg/dl * presumably due to poorly controlled hypertension with contributions from vascular disease (hx of CVA + hyperlipidemia) and diabetes (3) Hypertension: Qualifiers: Hypertension type: unspecified Qualified Code(s): I10 - Essential (primary) hypertension Code(s): I10 - Essential (primary) hypertension Status: Acute Assessment and Plan: * poorly controlled on admission (and presumably as outpatient) * doing better currently * given his CKD, would avoid overcontrol for fear of causing renal hypoperfusion and worsening renal dysfunction * would aim to keep systolic BP in the 150s - 160s for now * PATIENCE-I and spironolactone on hold * follow trend of hemodynamics (4) CVA (cerebral vascular accident): Code(s): I63.9 - Cerebral infarction, unspecified Status: Acute Assessment and Plan: * known history * no residual deficits * on plavix (5) Diabetes: Code(s): E11.9 - Type 2 diabetes mellitus without complications Status: Acute Assessment and Plan: * follow accu-cheks * doing well as noted by A1c * glycemic control per hospitalists Would not be opposed to discharge today since renal function and blood pressure remain stable -- he can follow-up with me (or another explosive operator fuse of his or PCP's choosing) to review pending serologies with repeat labs to assess stability of renal function; the decision with regard to a renal biopsy can be deferred as an outpatient as he would likely need to be off plavix for a few days prior to and after the procedure (due to risk of bleeding) if the procedure is deemed necessary. Will continue to follow. Subjective Date/time seen: 11/18/22 11:03 Interval history: Follow-up for acute kidney injury on chronic kidney disease (versus progression of chronic kidney disease). No apparent distress noted at this time; no issues/events overnight or earlier this morning; renal function remains relatively stable; no other acute complaints or concerns to report. Exam Narrative: General: WD/WN male in NAD Heart: normal S1 and S2; no rub Lungs: clear to auscultation Abdomen: soft, nontender, nondistended, positive bowel sounds Extremities: no cyanosis or clubbing; no edema Skin: warm and intact Objective Data Vital Signs Vital Signs: Vital Signs Temp Pulse Resp BP Pulse Ox O2 Del Method 11/18/22 09:11 62 11/18/22 06:00 97.1 F L 63 16 170/89 H 98 11/17/22 20:30 66 16 98 Room Air 11/17/22 21:3
--- NOTE | 2022-11-18 11:03 | PM.PNNEP ---
Progress Note: A&P Assessment and Plan (1) GURJIT (acute kidney injury): Code(s): N17.9 - Acute kidney failure, unspecified Status: Acute Assessment and Plan: acute insult or is this just progression of disease (?) tend to favor the latter but difficult to know for sure... however, no critical electrolytes, stable acid-base status, and no evidence of uremia or volume overload extensive serological testing pending creatinine remains relatively stable consider renal biopsy for definitive diagnosis (but he would have to be off plavix first) follow repeat labs and UOP (2) Chronic kidney disease, stage IV (severe): Code(s): N18.4 - Chronic kidney disease, stage 4 (severe) Status: Chronic Assessment and Plan: creatinine in September 2021 (from [facility] records) was 2.88mg/dl creatinine in Jul 2020 was 2.60mg/dl presumably due to poorly controlled hypertension with contributions from vascular disease (hx of CVA + hyperlipidemia) and diabetes (3) Hypertension: Qualifiers: Hypertension type: unspecified Qualified Code(s): I10 - Essential (primary) hypertension Code(s): I10 - Essential (primary) hypertension Status: Acute Assessment and Plan: poorly controlled on admission (and presumably as outpatient) doing better currently given his CKD, would avoid overcontrol for fear of causing renal hypoperfusion and worsening renal dysfunction would aim to keep systolic BP in the 150s - 160s for now PATIENCE-I and spironolactone on hold follow trend of hemodynamics (4) CVA (cerebral vascular accident): Code(s): I63.9 - Cerebral infarction, unspecified Status: Acute Assessment and Plan: known history no residual deficits on plavix (5) Diabetes: Code(s): E11.9 - Type 2 diabetes mellitus without complications Status: Acute Assessment and Plan: follow accu-cheks doing well as noted by A1c glycemic control per hospitalists Would not be opposed to discharge today since renal function and blood pressure remain stable -- he can follow-up with me (or another log washer of his or PCP's choosing) to review pending serologies with repeat labs to assess stability of renal function; the decision with regard to a renal biopsy can be deferred as an outpatient as he would likely need to be off plavix for a few days prior to and after the procedure (due to risk of bleeding) if the procedure is deemed necessary. Will continue to follow. Subjective Date/time seen: 11/18/22 11:03 Interval history: Follow-up for acute kidney injury on chronic kidney disease (versus progression of chronic kidney disease). No apparent distress noted at this time; no issues/events overnight or earlier this morning; renal function remains relatively stable; no other acute complaints or concerns to report. Exam Narrative: General: WD/WN male in NAD Heart: normal S1 and S2; no rub Lungs: clear to auscultation Abdomen: soft, nontender, nondistended, positive bowel sounds Extremities: no cyanosis or clubbing; no edema Skin: warm and intact Objective Data Vital Signs Vital Signs: Vital Signs Temp Pulse Resp BP Pulse Ox O2 Del Method 11/18/22 09:11 62 11/18/22 06:00 97.1 F L 63 16 170/89 H 98 11/17/22 20:30 66 16 98 Room Air 11/17/22 21:34 97.4 F L 66 16 167/86 H 98 11/17/22 20:15 66 11/17/22 14:00 97.2 F L 59 L 16 155/84 H 99 Intake/Output Intake/Output: Intake & Output 11/15/22 11/16/22 11/17/22 11/18/22 23:59 23:59 23:59 23:59 Intake Total 3940 2470 220 Output Total 2150 1200 1000 Balance 1790 1270 -780 Meds/Results Medications: Active Medications Generic Name Dose Route Start Last Admin Trade Name Freq PRN Reason Stop Dose Admin Albuterol 2 puff 11/16/22 02:11 Albuterol Sulfate (*Sp) Aerosol 1 Puff INHALATION Q6HRT PRN Shortness Of Breat
[2022-11-18 11:49] LABS: Glucose Point of Care 133 mg/dl (65-105)
--- NOTE | 2022-11-18 13:49 | PM.DS ---
DS: Admitting Diagnosis Discharge Date 11/18/2022 Admitting Diagnosis Renal failure DS: Discharge Diagnosis Discharge Diagnosis (1) Acute kidney injury superimposed on chronic kidney disease: Code(s): N17.9 - Acute kidney failure, unspecified; N18.9 - Chronic kidney disease, unspecified Status: Acute (2) CVA (cerebral vascular accident): Code(s): I63.9 - Cerebral infarction, unspecified Status: Acute (3) Anxiety: Code(s): F41.9 - Anxiety disorder, unspecified Status: Acute (4) Diabetes: Code(s): E11.9 - Type 2 diabetes mellitus without complications Status: Acute (5) Hyperlipidemia: Code(s): E78.5 - Hyperlipidemia, unspecified Status: Acute (6) Hypertension: Qualifiers: Hypertension type: unspecified Qualified Code(s): I10 - Essential (primary) hypertension Code(s): I10 - Essential (primary) hypertension Status: Acute DS: Summary Hospital Course Hospital Course: 57-year-old presented with abnormal labs noted to have elevated creatinine.? Patient presented 2 weeks ago with abdominal pain and vomiting blood.? Patient reports vomiting associated with nausea and Diarrhea. History of hypertension hyperlipidemia history of stroke in the past without any residual on plavix. Also has type 2 diabetes was on insulin and metformin not been tapered off to only insulin.? Blood sugar has been well controlled.? Was noted to be hypertensive on arrival to the ER.? Creatinine noted to be 5.22 July 2020 creatinine was 2.6.? BNP elevated at 9780 received IV labetalol urinalysis with proteinuria chest x-ray with mild pulmonary edema EKG with left axis deviation left ventricular hypertrophy.? Admitted for further evaluation and management.? Nephrology has been consulted from the ER.? Stop spironolactone and lisinopril.? A1c came back at 5.9.? Phosphorus is high.? Has acute on chronic kidney disease versus chronic disease progression of underlying chronic kidney disease.? TSH normal protein electrophoresis pending no anemia present.? REKHA/ Anca /[place] antibody /anti DNA/glomerular basement membrane? antibody/complement pending.? Hepatitis panel is negative.? Anti streptolysin screen pending.? Renal ultrasound with normal kidneys without hydronephrosis.? Chronic bandlike filling defect along the right side of the bladder which represented fold of the bladder wall in previous CT.? Previous CT with mild prostatic enlargement and multiple prostate calcification.? Will challenge with IV fluid for possible acute component however renal function remained unchanged. Eighty suspected that he has progression of his chronic kidney disease likely due to underlying poorly-controlled hypertension. He also has additional risk factor of diabetes which seems to be well controlled. His blood pressure medication regimen with lisinopril and hydrochlorothiazide and spironolactone was stopped during the hospital stay and was switched to amlodipine and hydralazine. He will need to adjust his antihypertensive regimen as an outpatient basis for further control of his blood pressure to goal of 130/80.? Urinalysis with protein urea and no hematuria.? Accelerated hypertension patient on amlodipine 10 mg daily.? added hydralazine cautiously for better control of blood pressure.? Echo EF 50-55%, grade II diastolic dysfunction.? Monitor urine output with adequate urine output. potentially renal biopsy if not improving. He might need eventually get renal biopsy to diagnose has underlying chronic kidney disease this was deferred as he needs to be off of Plavix for 5 days before they will be able to perform the renal biopsy. This would be followed up as an outpatient basis as well. Is planned seen last renal physician when he gets discharged from the hospital. He had adequate urine output monitor throughout the hospital stay. Time Spent with Patient Time attestation: Total time spent providing and/or coordinating
[2022-11-18 14:00] VITALS: BP 141/68; PULSE 62; RESP 18; TEMP 35.9; O2SAT 100
[2022-11-18] MEDS: hydrALAZINE HCL 25 MG TABLET PO (14:20)
[2022-11-20 09:13] LABS: SM Antibody <1.0; SM/RNP Antibody <1.0
[2022-11-20 14:27] LABS: Anti Glomerular Basement Memb <1.0 AI (<1.0)
[2022-11-20 19:06] LABS: Complement Total CH50 58 U/mL (31-60)
[2022-11-21 08:43] LABS: Anti Streptolysin O Screen 84 IU/mL (<200)
[2022-11-21 15:50] LABS: Albumin 3.6 g/dL (3.8-4.8); Alpha 1 Globulin 0.3 g/dL (0.2-0.3); Alpha 2 Globulin 0.9 g/dL (0.5-0.9); Beta 1 Globulin 0.4 g/dL (0.4-0.6); Gamma Globulin 0.8 g/dL (0.8-1.7); Protein, Total 6.3 g/dL (6.1-8.1)
[2022-11-21 21:00] LABS: ANCA Screen Negative (Negative); Strep DNASE B Antibody <95 U/mL (<301)
[2022-11-22 04:29] LABS: Creatinine, Random Urine 65 mg/dL (20-320); Total Protein/Creatinine Ratio 2923 mg/g creat (25-148)
== END 2022-11-18 15:00 | disposition home or self-care (01) | DRG 684 ==
LOC: ANHED 17:03 → ANH3MEDSUR 11-16 10:15
PROVIDERS: Internal Medicine Nephrology; Nurse Practitioner; Admitting Provider Chiropractor; Emergency Provider Emergency Medicine; PCP Internal Medicine; Visit Provider Internal Medicine
DX: N17.9 Acute kidney failure, unspecified (principal); N18.9 Chronic kidney disease, unspecified; F41.9 Anxiety disorder, unspecified; E11.22 Type 2 diabetes mellitus with diabetic chronic kidney disease; I12.9 Hypertensive chronic kidney disease with stage 1 through stage 4 chronic kidney disease, or unspecified chronic kidney disease; E78.5 Hyperlipidemia, unspecified; F17.210 Nicotine dependence, cigarettes, uncomplicated; Z86.73 Personal history of transient ischemic attack (TIA), and cerebral infarction without residual deficits; Z79.02 Long term (current) use of antithrombotics/antiplatelets; Z79.4 Long term (current) use of insulin; Z79.84 Long term (current) use of oral hypoglycemic drugs; Z79.899 Other long term (current) drug therapy; Z88.0 Allergy status to penicillin; Z83.3 Family history of diabetes mellitus
CPT/HCPCS: 36415; 71045; 76775; 80053; 80069; 80076; 81001; 81050; 82550; 82570; 82595; 82948; 83036; 83520; 83605; 83615; 83735; 83880; 83930; 84155; 84156; 84165; 84166; 84300; 84443; 84540; 85025; 85027; 85610; 85652; 85730; 85999; 86036; 86038; 86060; 86140; 86160; 86162; 86215; 86225; 86235; 86334; 86703; 86705; 86706; 86803; 87340; 93005; 93306; 96374; 99285; A9270; G0432; J0360; J2405; J7030

== ENCOUNTER 2023-02-07 07:14 | Outpatient (CLI) | payer BC, SELFPAY ==
[2023-02-04 12:20] VITALS: BMI 28.7
--- NOTE | 2023-02-04 12:21 | PC.NURSE ---
Pre Radiology instructions Report to the outpatient aby bourne on date 02/07/23 at time 02/07/23 for procedure Time: 0930. YOU MAY BE MONITORED AT HOSPITAL FOR UP TO 4 HOURS AFTER YOUR PROCEDURE. A visitor will be allowed to accompany the patient into the hospital. You and your visitor will be asked to self-screen and do not enter if you have any COVID symptoms. A mask is OPTIONAL within the hospital. Patients are to have no food or drink 6 hours prior to procedure time Driving will be restricted after the procedure, you must have a person to drive you home. Labs will be drawn in preop area and once reviewed, you will be taken to radiology area for procedure. When the procedure is completed, you will be taken to outpatient where you will be monitored for several hours. You may have one visitor in this area. Other than holding anti-coagulants, patient may take other medication(s) as scheduled. Prior to your appointment date patients are instructed to hold anti-coagulants after discussing with ordering provider to stop. If unable to discontinue anti-coagulants please notify radiologist. ? No aspirin or warfarin (Coumadin) for 7 days prior to the procedure. ? No clopidogrel (Plavix), ticagrelor (Brilinta), prasugrel (Effient) or dabigatran (Pradaxa) for 5 days prior to the procedure. ? No rivaroxaban (Xarelto), apixaban (Eliquis), dipyridamole (Aggrenox or Persantine) or cilostazol (Pletal) for 2 days prior to the procedure. Medications to discontinue per physician: PLAVIX Date to take last dose: PT TOOK LAST DOSE 01/31 Please leave all valuables, including medications, at home the day of procedure. The hospital will not accept responsibility for valuables. Wear comfortable, loose fitting clothing.? Follow any additional instructions given to you from ordering provider. Telephone instructions given to PT - JUDE GREGORY and asked if any additional questions and then verbalized understanding. Patient advised to call scheduling provider office or registration scheduling [phone] if any additional questions.
[2023-02-07] VITALS (14 sets, daily range): BP systolic 122–159; BP diastolic 66–90; PULSE 55–65; RESP 14–16; TEMP 36.4; O2SAT 95–98
--- NOTE | ~2023-02-07 | US_ITS ---
EXAMINATION: US biopsy renal DATE: 02/07/2023 09:34 INDICATION: Chronic kidney disease stage V. TECHNIQUE: The procedure including the risks, benefits, and alternatives was discussed with the patie nt. Risks discussed included bleeding and infection. The patient understood the risks and agreed to p roceed. A timeout was performed to verify the patient's name, date of , and procedure to be p erformed. The skin overlying the left kidney was prepped and draped in usual sterile fashion. Anest hetic was administered with 1% lidocaine subcutaneously. An 18 gauge core biopsy needle was then use d to obtain 3 core biopsy specimens under continuous sonographic guidance. The entry site was cleaned and dressed. There were no immediate complications. FINDINGS: Ultrasound images demonstrate the needle in the kidney. IMPRESSION: 1. Ultrasound-guided random left kidney core needle biopsy. Reviewed, dictated and finalized at location A.
[2023-02-07 08:10] LABS: Mean Platelet Volume 12.1 fl (7.4-10.4); Platelet Count Result 157 k/mm3 (150-375)
[2023-02-07 08:25] LABS: INR 1.1; Prothrombin Time 14.3 Seconds (11.1-14.7)
[2023-02-07] MEDS: SODIUM CHLORIDE 0.9% IV 100 ML 999 ML IV CONT (10:20)
[2023-02-07] MEDS: ONDANSETRON INJ 4 MG/2 ML VIAL IV PUSH (10:20)
[2023-02-07 12:15] LABS: Glucose Point of Care 93 mg/dl (65-105)
== END 2023-02-07 13:55 | disposition home or self-care (01) ==
PROVIDERS: PCP Internal Medicine; Referring Provider Internal Medicine Nephrology; Visit Provider Radiology Diagnostic Radiology
PROC: (CPT 76942; principal; 2023-02-07 09:30)
DX: I12.0 Hypertensive chronic kidney disease with stage 5 chronic kidney disease or end stage renal disease (principal); N18.5 Chronic kidney disease, stage 5; E11.22 Type 2 diabetes mellitus with diabetic chronic kidney disease
CPT/HCPCS: 36415; 50200; 76942; 82948; 85049; 85610; 88300; 88329; J2405; J7030

== ENCOUNTER 2023-08-11 06:20 | Inpatient (IN) | payer BC, SELFPAY ==
[2023-08-11] VITALS (20 sets, daily range): BP systolic 147–233; BP diastolic 83–140; PULSE 77–97; RESP 15–23; TEMP 36.2–37.1; O2SAT 96–100; BMI 33.2
--- NOTE | ~2023-08-11 | XR_ITS ---
EXAMINATION: XR chest port-a-cath/central DATE: 08/14/2023 11:20 INDICATION: Central line placement. TECHNIQUE: A single frontal view of the chest was obtained. COMPARISON: Chest single view 08/11/2023, CT abdomen and pelvis 08/02/2020 FINDINGS: There is no pneumonia, pleural effusion, or pneumothorax. Cardiomegaly is noted. Calcified left hilar lymph nodes are consistent with old granulomatous disease. There is a right internal jugul ar central venous catheter with tip in the superior vena cava. IMPRESSION: 1. Central line tip in the superior vena cava. 2. Cardiomegaly. Reviewed, dictated and finalized at location A. 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
--- NOTE | ~2023-08-11 | US_ITS ---
EXAMINATION: US venous doppler [facility] DATE: 08/12/2023 09:36 INDICATION: Lower extremity swelling. TECHNIQUE: Grayscale ultrasound images without and with compression and Doppler ultrasound images of the bilateral lower extremity veins were obtained. COMPARISON: None. FINDINGS: The visualized portions of right common femoral vein, profunda (deep) femoral vein, femoral vein, pop liteal vein, peroneal veins, posterior tibial veins, and greater saphenous vein outflow are patent. The visualized portions of left common femoral vein, profunda femoral vein, femoral vein, popliteal v ein, peroneal veins, posterior tibial veins, and greater saphenous vein outflow are patent. IMPRESSION: 1. No deep venous thrombosis. Reviewed, dictated and finalized at location A. [place] GROCER
--- NOTE | ~2023-08-11 | XR_ITS ---
EXAMINATION: XR fl guide central line place DATE: 08/14/2023 11:06 INDICATION: Central line placement. TECHNIQUE: 2 intraoperative fluoroscopic views of the chest were obtained. I was not present. Fluoros copy time was 47 seconds. COMPARISON: Chest single view 08/14/2023 FINDINGS: A right internal jugular central venous catheter is seen with tip in the superior vena cava . IMPRESSION: 1. Central line tip in the superior vena cava. Reviewed, dictated and finalized at location A. 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
--- NOTE | ~2023-08-11 | XR_ITS ---
Portable chest x-ray Comparison: 11/15/2022 Clinical History: Chest pain Findings: Stable linear scarring left lung base. Probable mild central congestive changes. Cardiome diastinal silhouette is stable. Bones and soft tissues are unremarkable. Impression: Central congestive change. Stable linear scarring left lung base. Reviewed, dictated and finalized at [facility]. SPERSON Impression: Central congestive change. Stable linear scarring left lung base.
--- NOTE | ~2023-08-11 | NM_ITS ---
EXAMINATION: NM lung vent and perfusion DATE: 08/11/2023 11:21 INDICATION: Left chest pain. TECHNIQUE: 10.4 mCi xenon-133 was administered for ventilation images. 5 mCi Tc-99m MAA was administe red intravenously for perfusion images. Scintigraphic images of the chest were obtained. COMPARISON: Chest single view 08/11/2023, CT abdomen and pelvis 08/02/2020 FINDINGS: Ventilation images demonstrate small defects bilaterally on the single breath images. Washout images demonstrated diffuse retention bilaterally. Perfusion images show matched small defects in right lowe r lobe and matched large defects in left lower lobe. IMPRESSION: 1. Intermediate probability for pulmonary embolism. Reviewed, dictated and finalized at location A. ESSOR OF COMMUNICATION
--- NOTE | 2023-08-11 06:21 | ECG_ITS ---
Measurements Intervals [place] Rate: 88 P: 58 IN: 199 QRS: -41 QRSD: 122 T: 122 QT: 389 QTc: 471 Interpretive Statements SINUS RHYTHM WITH FREQUENT VENTRICULAR PREMATURE COMPLEXES POSSIBLE LEFT ATRIAL ENLARGEMENT [-0.1mV P-WAVE IN V1/V2] LEFT AXIS DEVIATION [QRS AXIS < -30] LEFT VENTRICULAR HYPERTROPHY AND ST-T CHANGE [VOLTAGE CRITERIA PLUS ST/T ABNORMALITY] ABNORMAL ECG COMPARED TO ECG 11/15/2022 16:03:02 PVCS ARE MORE FREQUENT AND OCCURRING IN A TRIGEMINAL PATTERN Electronically Signed On 08-11-2023 7:32:32 TWISTER IN by Finesse Garcia M.D.
[2023-08-11 06:48] LABS: Basophils Percent Auto 0.6 % (0.2-1.2); Eosinophils Absolute Auto 0.1 K/mm3 (0-0.3); Eosinophils Percent Auto 2.2 % (0-4.4); Hematocrit 36.6 % (42.0-52.0); Hemoglobin 11.5 g/dL (14.0-18.0); Immature Granulocyte Absolute 0.02 K/mm3 (0.00-0.031); Immature Granulocyte Percent A 0.3 % (0-0.5); Lymphocytes Absolute Auto 0.72 K/mm3 (0.9-3.2); Lymphocytes Percent Auto 11.3 % (18.3-44.2); Mean Corpuscular HGB Conc 31.4 g/dl (32-36); Mean Corpuscular Hemoglobin 27.8 pg (26-34); Mean Corpuscular Volume 88.6 fl (80-100); Mean Platelet Volume 11.8 fl (7.4-10.4); Monocytes Absolute Auto 0.5 K/mm3 (0.1-0.6); Monocytes Percent Auto 7.2 % (2.6-8.5); Neutrophils Percent Auto 78.4 % (45.5-73.1); Platelet Count Result 180 k/mm3 (150-375); Red Blood Count 4.13 M/mm3 (4.6-6.20); Red Cell Distribution Width 14.1 % (11.5-14.5); White Blood Count 6.4 K/mm3 (4.5-10.0)
[2023-08-11] MEDS: ASPIRIN 81 MG CHEWABLE TABLET 324 MG PO (06:48)
[2023-08-11 06:58] LABS: Alanine Aminotransferase 28 U/L (6-50); Albumin Level 4.1 g/dL (3.5-5.1); Alkaline Phosphatase 89 U/L (38-126); Anion Gap 13 mmol/L (8-16); Aspartate Amino Transferase 27 U/L (17-59); Bilirubin,Total 1.1 mg/dL (0.2-1.3); Blood Urea Nitrogen 72 mg/dL (9-20); Calcium 7.1 mg/dL (8.4-10.2); Carbon Dioxide 18 mmol/L (22-30); Chloride 107 mmol/L (98-107); Estimated CRCL calculation 10 ml/min; Estimated Glomerular Filt Rate 7; Glucose 149 mg/dL (65-110); Lipase 43 U/L (23-300); Sodium 138 mmol/L (137-145)
[2023-08-11 07:02] LABS: INR 1.1; Prothrombin Time 14.9 Seconds (11.1-14.7)
[2023-08-11 07:03] LABS: Partial Thromboplastin Time 29.9 SECONDS (22.3-36.8)
[2023-08-11 07:15] LABS: Troponin I 0.056 ng/mL (0.000-0.034)
--- NOTE | 2023-08-11 07:16 | ED.CHESTPAIN ---
HPI - Chest Pain General Chief Complaint: Chest Pain Stated Complaint: Chest pain Time Seen by Provider: 08/11/23 06:54 History of Present Illness HPI narrative: 58-year-old male presenting to the emergency department for evaluation a pounding intermittent heartbeat. Patient denies any prior history of VT but does have history of diabetes, hypertension, CVA. Patient states that his symptoms started last night. Upon arrival emergency department patient denies any chest pain. Patient states he has had some worsening shortness of breath and patient does have lower extremity edema. Patient does have history of stage 5 kidney disease and does follow-up with Dr. Gonzalez. Related Data Home Medications Medication Instructions Recorded Confirmed amlodipine 10 mg tablet 10 mg PO DAILY 01/25/22 08/11/23 atorvastatin 80 mg tablet 80 mg PO DAILY 01/25/22 08/11/23 carvedilol 25 mg tablet 25 mg PO BID 01/25/22 08/11/23 clopidogrel 75 mg tablet 75 mg PO DAILY 01/25/22 08/11/23 hydralazine 50 mg tablet 50 mg PO TID 08/11/23 08/11/23 Allergies Allergy/AdvReac Type Severity Reaction Status Date / Time tree nut Allergy Intermediate Itching Verified 08/11/23 07:18 Penicillins Allergy Unknown Unknown Verified 08/11/23 07:18 Review of Systems Review of Systems: All systems reviewed & are unremarkable except as noted in HPI and below PMFSH Past Medical History Medical History (Updated 08/11/23 @ 17:58 by Aubrey Seay MD) Anxiety Carotid artery disease Severe stenosis of the intracranial internal carotid arteries on CT taken 03/05/2019. 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 Heart failure with preserved ejection fraction Echo in November 2022 showed normal LV size and function with an EF of 50 to 55%, mildly increased left ventricular wall thickness, and grade 2 diastolic dysfunction. Hyperlipidemia Hypertension Type 2 diabetes mellitus Surgical History Surgical History History of cardiac catheterization (2019) History of colonoscopy with polypectomy Family History Family History Mother Carcinoma of colon Father Family history of diabetes mellitus in first degree relative Grandparent Diabetes mellitus Social History Social History Social History: Surrogate medical decision maker: Raina Yun, sibling. Code status: Full code. Smoking packs per day: 0.5 Smoking cigarettes per day: 10.0 Years smoked: 40 Smoking pack-years: 20.00 Smoking status: Current every day smoker Tobacco type: cigarettes Alcohol intake: never Substance use: never Substance use type: does not use Do You Feel Safe in your Home?: Yes Lack of Transportation: YES Lack of Food: Never True Current Housing: I Have Housing Concerned About Future Housing: No Difficulty Paying Gas/Electric Bills: No Difficulty Paying for Meds: No Currently Unemployed: No Education: High School Diploma/GED Difficulty w/ Childcare or Family Care: No Living arrangements: with family Additional living arrangements comments: Lives in [place]. Has 4 children. Retired [employer]. Additional occupation/education comments: [employer]. Spiritual care concerns: No Exam Narrative: APPEARANCE: Well appearing, no pain, no distress, well-nourished. HEAD: normocephalic, atraumatic. EYES: PERRLA/EOMI, conjunctivae clear. NOSE: Normal no drainage EARS:TMS clear with good light reflex. THROAT: Pharynx clear, no exudate. NECK: Supple. No adenopathy, no masses. RESPIRATORY: Decreased breath sounds bilaterally CARDIOVASCULAR: Normal sinus rhythm with frequent PVCs ABDOMINAL: Soft, nontender, nondistended, normal bowel
[2023-08-11] MEDS: hydrALAZINE HCL 20 MG/ML VIAL 10 MG IV PUSH ×3 (07:19→23:28)
[2023-08-11] MEDS: NITROGLYCERIN OINTMENT 1 INCH DOSE TRANSDERM (07:21)
[2023-08-11 07:26] LABS: D Dimer 0.58 ug/mL (<0.48)
[2023-08-11 07:37] LABS: Magnesium 2.2 mg/dL (1.6-2.3)
[2023-08-11 07:46] LABS: NT Pro B Type Natriuretic Pept > 30000 pg/mL (19.9-100)
[2023-08-11] MEDS: FUROSEMIDE INJ 40 MG/4 ML VIAL IV PUSH (07:50)
--- NOTE | 2023-08-11 08:18 | ECG_ITS ---
Measurements Intervals [place] Rate: 81 P: 38 CO: 186 QRS: -39 QRSD: 125 T: 135 QT: 400 QTc: 466 Interpretive Statements SINUS RHYTHM POSSIBLE LEFT ATRIAL ENLARGEMENT [-0.1mV P-WAVE IN V1/V2] LEFT AXIS DEVIATION [QRS AXIS < -30] LEFT VENTRICULAR HYPERTROPHY AND ST-T CHANGE [VOLTAGE CRITERIA PLUS ST/T ABNORMALITY] ABNORMAL ECG COMPARED TO ECG 08/11/2023 06:28:37 NO LONGER HAVING PVCS Electronically Signed On 08-11-2023 18:16:44 HIDE CLEANER by Finesse Garcia M.D.
[2023-08-11 08:59] LABS: Influenza A QL RT-PCR Negative (Negative); Influenza B QL RT-PCR Negative (Negative); RSV RNA, RT-PCR Negative (Negative); SARS-CoV-2 RNA PCR Negative (Negative)
--- NOTE | 2023-08-11 09:43 | ECG_ITS ---
Measurements Intervals [employer] Rate: 81 P: 43 NV: 197 QRS: -37 QRSD: 118 T: 129 QT: 399 QTc: 466 Interpretive Statements SINUS RHYTHM LEFT AXIS DEVIATION LEFT VENTRICULAR HYPERTROPHY WITH SECONDARY REPOLARIZATION ABNORMALITY ABNORMAL ECG COMPARED TO ECG 08/11/2023 08:21:20 NO SIGNIFICANT CHANGES Electronically Signed On 08-11-2023 18:22:00 ROLL MACHINE OPERATOR by Finesse Garcia M.D.
--- NOTE | 2023-08-11 09:47 | ECG_ITS ---
Measurements Intervals [place] Rate: 82 P: 17 PA: 203 QRS: -36 QRSD: 126 T: 127 QT: 402 QTc: 471 Interpretive Statements SINUS RHYTHM LEFT AXIS DEVIATION LEFT VENTRICULAR HYPERTROPHY WITH SECONDARY REPOLARIZATION ABNORMALITY ABNORMAL ECG COMPARED WITH EARLIER TODAY NO DIFFERENCE Electronically Signed On 08-11-2023 18:27:17 JUKEBOX COIN COLLECTOR by Finesse Garcia M.D.
[2023-08-11 10:24] LABS: Troponin I 0.053 ng/mL (0.000-0.034)
[2023-08-11 13:07] LABS: Troponin I 0.053 ng/mL (0.000-0.034)
--- NOTE | 2023-08-11 13:15 | ADMGEN ---
This patient, Savage Yun, was admitted to IMU Room 203-01. Patient/family oriented to hospital policies and general routines including ID bracelet, bed and alarms, visiting hours, pain management, procedures, bathroom and other care routines, personal items, smoking policy, room service/diet, and visiting hours. Information on how to activate the Rapid Response Team has been discussed. Patient/Family are encouraged to report perceived risks to care and to ask questions if they do not understand what they are told or what they should do.
--- NOTE | 2023-08-11 13:36 | PM.IMHP ---
H&P: HPI History of Present Illness Date/Time: 08/11/23 13:00 Chief Complaint: Chest pain. Narrative: This is a 58-year-old male smoker with history of stroke, hypertension, heart failure with preserved ejection fraction, carotid artery disease, and diet-controlled type 2 diabetes mellitus who presented to the emergency department for evaluation chest pain. The patient provides the following history. He did not sleep well last night due to pretty constant chest discomfort which he has a difficult time describing. At times it felt as though his heart rate was pounding and other times it felt heavy. He has also noticed increasing shortness of breath with exertion and lower extremity edema. Due to ongoing symptoms he came in today for evaluation. He denies syncope, near syncope, sweats, exertional chest pain, pleuritic pain, cough, sore throat, nausea, vomiting, diarrhea, and dysuria. In the ED: Blood pressure has been as high as 233/140. EKG showed sinus rhythm with PVCs and changes consistent with LVH. Initial troponin was 0.056 and proBNP was greater than 30,000. BUN and creatinine were 72 and 7.90 respectively; creatinine over the last year has ranged between 5.6 and 6.83. Chest x-ray showed central congestive changes. V/Q scan was intermediate probability for pulmonary embolism. He received 40 mg IV furosemide, 10 mg IV hydralazine, 1 in nitroglycerin paste, 324 mg aspirin, and he is being admitted in this setting for further workup. At the time my evaluation he has no current complaints and denies having chest discomfort and resting shortness of breath. Review of Systems Review of Systems: Twelve systems were reviewed and are negative except for as per HPI. [facility] Past Medical History Medical History Anxiety Carotid artery disease Severe stenosis of the intracranial internal carotid arteries on CT taken 03/05/2019. 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 Heart failure with preserved ejection fraction Echo in November 2022 showed normal LV size and function with an EF of 50 to 55%, mildly increased left ventricular wall thickness, and grade 2 diastolic dysfunction. Hyperlipidemia Hypertension Type 2 diabetes mellitus Surgical History Surgical History History of cardiac catheterization (2019) History of colonoscopy with polypectomy Family History Family History Mother Carcinoma of colon Father Family history of diabetes mellitus in first degree relative Grandparent Diabetes mellitus Social History Social History (Updated 08/11/23 @ 22:40 by Angy Carreon PA-C) Social History: Surrogate medical decision maker: Raina Yun, sibling. Code status: Do not resuscitate. Smoking packs per day: 0.5 Smoking cigarettes per day: 10.0 Years smoked: 40 Smoking pack-years: 20.00 Smoking status: Current every day smoker Tobacco type: cigarettes Alcohol intake: never Substance use: never Substance use type: does not use Do You Feel Safe in your Home?: Yes Lack of Transportation: YES Lack of Food: Never True Current Housing: I Have Housing Concerned About Future Housing: No Difficulty Paying Gas/Electric Bills: No Difficulty Paying for Meds: No Currently Unemployed: No Education: High School Diploma/GED Difficulty w/ Childcare or Family Care: No Living arrangements: with family Additional living arrangements comments: Lives in [place]. Has 4 children. Retired [employer]. Additional occupation/education comments: [employer]. Spiritual care concerns: No Meds Home Medications and Allergies Home Medications Medication Instructions Recorded Confirmed Type
--- NOTE | 2023-08-11 15:15 | PM.CNNEP ---
Assessment and Plan Assessment and plan (1) Chronic kidney disease (CKD), stage V: Code(s): N18.5 - Chronic kidney disease, stage 5 Status: Chronic Assessment and Plan: due to biopsy proven diabetes and hypertension contributing factors include vascular disease (CVA + hyperlipdemia) outpatient testing demonstrated a normal ultrasound, nephrotic range proteinuria, and a negative serological profile kidney disease/renal function has been slowly deteriorating in the last 6 - 7 months now having issues with volume overload and difficult to control hypertension no critical electrolytes but may have some mild uremic symptoms in association with mild metabolic acidosis I think we should initiate dialysis as I suspect he will continue to have progression of his ongoing symptoms -- extensive discussion with patient will consult Surgery for placement of tunneled HD catheter for dialysis initiation (2) Chest pain: Code(s): R07.9 - Chest pain, unspecified Status: Acute Assessment and Plan: troponins noted suspect this is more related to his poor BP control continue supportive care (3) Hypertension: Qualifiers: Hypertension type: unspecified Qualified Code(s): I10 - Essential (primary) hypertension Code(s): I10 - Essential (primary) hypertension Status: Chronic Assessment and Plan: quite elevated and has been more difficult to control recently resume home medications -- consider switching carvedilol to labetalol once dialysis initiated, will add back PATIENCE-I or ARB use PRN IV medications versus PRN clonidine for BP control follow trend of hemodynamics (4) Anemia: Code(s): D64.9 - Anemia, unspecified Status: Chronic Assessment and Plan: presumably due to advanced CKD check iron studies Epogen once HD initiated follow trend of H/H (5) Diabetes mellitus with chronic kidney disease: Code(s): E11.22 - Type 2 diabetes mellitus with diabetic chronic kidney disease Status: Chronic Assessment and Plan: follow accu-cheks glycemic control per hospitalists Long and extensive discussion with the patient ( greater than 20 minutes) with regard to his progressively worsening kidney function with more difficult to control blood pressure and issues with volume overload as manifested by his chest x-ray and lower extremity edema. I discussed with the patient these symptoms are likely to continue to progress given his ongoing renal dysfunction and that we should probably initiate renal replacement therapy / dialysis sooner than later to optimize his overall clinical status. He agreed and is willing to proceed I will continue follow patient with you while he remains hospitalized and make further recommendations as deemed necessary. Thank you for allowing me to participate in care this patient. History of Present Illness Reason for Consult Consult date: 08/11/23 Reason for consult: chronic renal failure Chief Complaint Chief complaint: Chest pain History of Present Illness Narrative: The patient is a 58-year-old male with a past medical history as outlined below who presented to [facility] Emergency Room for further evaluation of chest pain. The patient reports that the night before admission he was unable to get any sleep as he had a constant chest discomfort /sensation. It iss difficult for the patient to elaborate on the specifics of his chest discomfort. He does report that it felt as though his heart rate was pounding in association with a heavy sensation. Associated symptoms included increasing shortness of breath particularly with exertional activities as well as more lower extremity edema that at baseline. Given these symptoms and the progressive nature of them, he came to the emergency room for further assessment. He denies any other symptoms with regard to syncope, diaphoresis, pleuritic pain, coug
--- NOTE | 2023-08-11 15:15 | P.CONNP_ITS ---
Assessment and Plan Assessment and plan (1) Chronic kidney disease (CKD), stage V: Code(s): N18.5 - Chronic kidney disease, stage 5 Status: Chronic Assessment and Plan: * due to biopsy proven diabetes and hypertension * contributing factors include vascular disease (CVA + hyperlipdemia) * outpatient testing demonstrated a normal ultrasound, nephrotic range proteinuria, and a negative serological profile * kidney disease/renal function has been slowly deteriorating in the last 6 - 7 months * now having issues with volume overload and difficult to control hypertension * no critical electrolytes but may have some mild uremic symptoms in association with mild metabolic acidosis * I think we should initiate dialysis as I suspect he will continue to have progression of his ongoing symptoms -- extensive discussion with patient * will consult Surgery for placement of tunneled HD catheter for dialysis initiation (2) Chest pain: Code(s): R07.9 - Chest pain, unspecified Status: Acute Assessment and Plan: * troponins noted * suspect this is more related to his poor BP control * continue supportive care (3) Hypertension: Qualifiers: Hypertension type: unspecified Qualified Code(s): I10 - Essential (primary) hypertension Code(s): I10 - Essential (primary) hypertension Status: Chronic Assessment and Plan: * quite elevated and has been more difficult to control recently * resume home medications -- consider switching carvedilol to labetalol * once dialysis initiated, will add back PATIENCE-I or ARB * use PRN IV medications versus PRN clonidine for BP control * follow trend of hemodynamics (4) Anemia: Code(s): D64.9 - Anemia, unspecified Status: Chronic Assessment and Plan: * presumably due to advanced CKD * check iron studies * Epogen once HD initiated * follow trend of H/H (5) Diabetes mellitus with chronic kidney disease: Code(s): E11.22 - Type 2 diabetes mellitus with diabetic chronic kidney disease Status: Chronic Assessment and Plan: * follow accu-cheks * glycemic control per hospitalists Long and extensive discussion with the patient ( greater than 20 minutes) with regard to his progressively worsening kidney function with more difficult to control blood pressure and issues with volume overload as manifested by his chest x-ray and lower extremity edema. I discussed with the patient these symptoms are likely to continue to progress given his ongoing renal dysfunction and that we should probably initiate renal replacement therapy / dialysis sooner than later to optimize his overall clinical status. He agreed and is willing to proceed I will continue follow patient with you while he remains hospitalized and make further recommendations as deemed necessary. Thank you for allowing me to participate in care this patient. History of Present Illness Reason for Consult Consult date: 08/11/23 Reason for consult: chronic renal failure Chief Complaint Chief complaint: Chest pain History of Present Illness Narrative: The patient is a 58-year-old male with a past medical history as outlined below who presented to [facility] Emergency Room for further haylie luation of chest pain. The patient reports that the night before admission he was unable to get any sleep as he had a constant chest discomfort /sensation. It iss difficult for the patient to elaborate on the specifics of his chest discomfort. He does report that it felt as though his heart rate was pound
[2023-08-11 23:01] LABS: Hemoglobin A1C 6.1 % (<5.7)
[2023-08-11 23:19] LABS: Glucose Point of Care 116 mg/dl (65-105)
[2023-08-11] MEDS: carvediloL 25 MG TABLET PO (23:28)
[2023-08-11] MEDS: ENOXAPARIN 100 MG/ML SYRINGE SUB-Q (23:31)
[2023-08-12] VITALS (19 sets, daily range): BP systolic 116–169; BP diastolic 45–91; PULSE 63–79; RESP 18–20; TEMP 36.8–37.1; O2SAT 95–98
--- NOTE | 2023-08-12 | ECHO_ITS ---
Patient Info Name: Savage Yun Age: 58 years : 1965 Gender: Male Ht: 70 in Wt: 231 lbs BSA: 2.31 m2 HR: 75 bpm BP: 154 / 88 mmHg Heart Rhythm: Sinus Rhythm Technical Quality: Good Exam Date: 08/12/2023 11:09 AM Exam Location: Echo Lab Patient Status: Inpatient Admit Date: 08/12/2023 Staff Ordering Physician: Angy Carreon PA-C Talent Sourcing Specialist: Nelda Santoro RDCS Attending Provider: Tam Barrett MD Referring Physician: Lauri STAUFFER; Exam Type: CA echo doppler color flow Study Info Indications - elevated troponin, chest pain Complete two-dimensional, color flow and Doppler transthoracic echocardiogram is performed. Summary 1. Complete two-dimensional, color flow and Doppler transthoracic echocardiogram is performed. 2. Ventricular enlargement with moderate eccentric left ventricular hypertrophy. Moderate global hypokinesis, visual ejection fraction 40-45%, calculated ejection fraction 41%. No focal wall motion abnormalities. Grade 2 diastolic dysfunction is present. 3. There is mild aortic valve calcification without significant stenosis. 4. Left atrial chamber dimension is severely enlarged. 5. Right atrial chamber dimension is mildly enlarged. 6. There is mild mitral valve regurgitation. 7. There is moderate tricuspid valve regurgitation. 8. Moderate pulmonary hypertension, estimated pulmonary arterial systolic pressure is 51 mmHg. 9. Dilated inferior vena cava with >50% collapse upon inspiration consistent with elevated right atrial pressure, 10 mmHg. 10. There is trivial pericardial effusion. 11. Normal sinus rhythm. Left Ventricle Left ventricular chamber dimension is moderately enlarged. Left ventricular systolic function is moderately reduced, estimated at 40-45%. There is moderately increased left ventricular wall thickness. Left ventricular septal wall motion is normal. The left ventricular diastolic function is grade II diastolic dysfunction. Right Ventricle Right ventricular chamber dimension is normal. Right ventricular systolic function is normal. Left Atria Left atrial chamber dimension is severely enlarged. Right Atria Right atrial chamber dimension is mildly enlarged. Aortic Valve The aortic valve is trileaflet. There is no aortic valve sclerosis. There is no aortic valve stenosis. There is no aortic valve regurgitation. There is mild aortic valve calcification without significant stenosis. Pulmonic Valve The pulmonic valve is normal. There is no pulmonic valve stenosis. There is no pulmonic regurgitation. Mitral Valve The mitral valve has normal leaflets. There is no mitral valve stenosis. There is mild mitral valve regurgitation. The mitral valve annulus is moderately calcified. Tricuspid Valve The tricuspid valve leaflets are normal. There is no significant tricuspid valve stenosis. There is moderate tricuspid valve regurgitation. Moderate pulmonary hypertension, estimated pulmonary arterial systolic pressure is 51 mmHg. Pericardium/Pleural The pericardium appears normal. There is trivial pericardial effusion. Inferior Vena Cava Dilated inferior vena cava with >50% collapse upon inspiration consistent with elevated right atrial pressure, 10 mmHg. Aorta The aortic root size at the sinus of Valsalva is normal. The prox ascending aorta size is normal. Left Ventricular Outflow Tract Name Value Normal
[2023-08-12 04:42] LABS: Hematocrit 33.8 % (42.0-52.0); Hemoglobin 10.7 g/dL (14.0-18.0); Immature Platelet Fraction Pct 5.8 % (0.9-11.2); Mean Corpuscular HGB Conc 31.7 g/dl (32-36); Mean Corpuscular Hemoglobin 27.6 pg (26-34); Mean Corpuscular Volume 87.3 fl (80-100); Mean Platelet Volume 11.9 fl (7.4-10.4); Platelet Count Result 133 k/mm3 (150-375); Red Blood Count 3.87 M/mm3 (4.6-6.20)
[2023-08-12 06:08] LABS: Hepatitis B Surface Antigen Negative (Negative)
[2023-08-12 06:25] LABS: Hepatitis B Surface Anti Res Negative
[2023-08-12 07:27] LABS: Anion Gap 11 mmol/L (8-16); Blood Urea Nitrogen 74 mg/dL (9-20); Carbon Dioxide 19 mmol/L (22-30); Chloride 108 mmol/L (98-107); Estimated CRCL calculation 11 ml/min; Estimated Glomerular Filt Rate 7; Glucose 111 mg/dL (65-110); Magnesium 2.1 mg/dL (1.6-2.3); Phosphorus 6.9 mg/dL (2.5-4.5); Sodium 138 mmol/L (137-145)
[2023-08-12 08:19] LABS: Glucose Point of Care 115 mg/dl (65-105)
[2023-08-12 08:33] LABS: Folic Acid 3.5 ng/mL (2.76->20)
--- NOTE | 2023-08-12 08:35 | PM.IMPN ---
Progress Note: A&P Assessment and Plan (1) Chest pain: Code(s): R07.9 - Chest pain, unspecified Status: Acute Assessment and Plan: -this was his presenting complaint which is now resolved. He is unable to describe it accurately. troponin peaked at 0.056 an EKG is without ischemic changes. His symptomatology and elevated troponin could very well be due to hypertensive emergency along with decompensated heart failure. Continue to monitor. He is uninterested in stress testing at the moment. He certainly should have close follow-up with Cardiology. -presumably for his severe carotid disease he is on Plavix and atorvastatin and for hypertension Coreg. Aspirin 81 mg has also been started this admission. (2) Chronic kidney disease, stage 5: Code(s): N18.5 - Chronic kidney disease, stage 5 Status: Acute Assessment and Plan: -in November of last year his creatinine was 5.6 and since then has continued to increase. Now at 8.10 this admission. He does still produce urine -nephrology consulted. The patient is NPO and being scheduled for tunneled dialysis catheter with surgery. 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 (3) Heart failure with preserved ejection fraction: Code(s): I50.30 - Unspecified diastolic (congestive) heart failure Status: Acute Assessment and Plan: -12/06 surface echocardiogram demonstrating normal systolic function and grade 2 diastolic dysfunction. -on admission proBNP greater than 30,000 and has increased lower extremity edema. Pending surface echo repeat. Pending this, may need further cardiac evaluation but again he is uninterested at the time. Could rediscuss this with him when his dialysis issues are more stabilized. -daily weights, strict intake output, 1800 cc daily fluid restriction. -he received Bumex 1 mg x 1 and Lasix 40 mg IV x1. Defer further management to Nephrology pending dialysis. -he is on Coreg and hydralazine. Jardiance and spironolactone are considerations although he has advanced kidney failure. (4) Type 2 diabetes mellitus: Code(s): E11.9 - Type 2 diabetes mellitus without complications Status: Acute Assessment and Plan: -this has been diet controlled. Blood sugars controlled currently. -continue Accu-Cheks a.c. HS with hypoglycemia protocol and insulin sliding scale. (5) Anemia: Code(s): D64.9 - Anemia, unspecified Status: Chronic Assessment and Plan: -likely due to anemia of chronic disease. -iron studies pending. (6) Elevated d-dimer: Code(s): R79.89 - Other specified abnormal findings of blood chemistry Status: Acute Assessment and Plan: -only mildly elevated on admission. V/Q scan resulting indeterminate probability of PE. -he received 100 mg of Lovenox on admission. Does not want blood thinners ongoing. Mild acute thrombocytopenia, continue to monitor. (7) Hypertensive urgency: Code(s): I16.0 - Hypertensive urgency Status: Acute Assessment and Plan: -blood pressure size 233/140 on admission. -better controlled now. Continue Coreg 25 mg p.o. b.i.d., amlodipine 10 mg p.o. q.day, hydralazine 50 mg p.o. t.i.d. and any diuresis/dialysis per Nephrology. (8) Carotid artery disease: Code(s): I77.9 - Disorder of arteries and arterioles, unspecified Status: Acute Assessment and Plan: -unclear the follow-up/management he has had. Continue atorvastatin aspirin and Plavix. Should have close follow-up with vascular. (9) Cerebrovascular accident: Onset Date: 02/2019 Code(s): I63.9 - Cerebral infarction, unspecified Status: Acute (10) Tobacco abuse: Code(s): Z72.0 - Tobacco use Status: Acute Assessment and Plan: -counseling provided. -nicotine patch as needed. Plan 58-year-old male with a history of active tobacco abuse, hypertension, heart failure with preserved eject
--- NOTE | 2023-08-12 09:12 | PM.CNGS ---
Assessment and Plan Assessment and plan (1) Chronic kidney disease, stage 5: Code(s): N18.5 - Chronic kidney disease, stage 5 Status: Acute Assessment and Plan: Patient with progressing chronic kidney disease and Nephrology has consulted our office for placement of tunnelled central venous catheter to initiate hemodialysis. The patient is on Plavix with his last dose 2 days ago. It would be ideal to hold off on surgery until his Plavix has worn off, which would also allow more time for cardiac workup preoperatively. Discussed the case with Nephrology and there is no urgent need for dialysis catheter placement and they are okay with proceeding later this week. Okay to resume a diet today and continue further workup of his chest pain. Will tentatively plan on adding him onto the surgery schedule for with Dr. Du for tunnelled dialysis catheter placement. Description of the procedure, risks, benefits, alternatives, and expected outcomes were discussed with the patient in detail. He understands and agrees with proceeding when deemed appropriate. (2) Chest pain: Code(s): R07.9 - Chest pain, unspecified Status: Acute Assessment and Plan: Continue workup, echo ordered today, V/Q scan showed intermediate probability of PE and bilateral lower extremity venous dopplers ordered today. Management per primary service. (3) Antiplatelet or antithrombotic long-term use: Code(s): Z79.02 - [facility] (current) use of antithrombotics/antiplatelets Status: Acute Assessment and Plan: Hold Plavix for surgery (4) Cerebrovascular accident: Onset Date: 02/2019 Code(s): I63.9 - Cerebral infarction, unspecified Status: Acute Assessment and Plan: CVA in 2019 and treated at [facility]. He believes this is when he was started on Plavix. (5) Carotid artery disease: Code(s): I77.9 - Disorder of arteries and arterioles, unspecified Status: Acute Assessment and Plan: Increases risks of surgery which was discussed with patient. (6) Heart failure with preserved ejection fraction: Code(s): I50.30 - Unspecified diastolic (congestive) heart failure Status: Acute (7) Type 2 diabetes mellitus: Code(s): E11.9 - Type 2 diabetes mellitus without complications Status: Acute (8) Hypertension: Qualifiers: Hypertension type: unspecified Qualified Code(s): I10 - Essential (primary) hypertension Code(s): I10 - Essential (primary) hypertension Status: Chronic Plan I have discussed the patient's case and plan of care with Dr. Du. History of Present Illness Consult details Consult date: 08/12/23 Reason for consult: other (Tunneled hemodialysis catheter placement) Requesting physician: Sharon Gonzalez MD Narrative: This is a 58-year-old man with history of stroke on clopidogrel, chronic kidney disease, hypertension, type 2 diabetes mellitus, heart failure with preserved ejection fraction, and carotid artery disease, who we have been asked to see in surgical consultation for placement of a tunneled hemodialysis catheter. He presented to the ER yesterday with complaints of chest pain. He also admits to increasing shortness of breath with exertion and lower extremity edema. In the ER, he was found to be hypertensive. BUN 72 and creatinine 7.9. Troponin elevated at 0.056. Repeat troponins have been flat. BNP greater than 30,000. Chest x-ray showed central congestive changes. He has been diuresed. V/Q perfusion scan showed intermediate probability for pulmonary embolism. He has bilateral lower extremity venous Dopplers ordered for this morning. He received 1 dose of therapeutic Lovenox last night. His clopidogrel was continued, but has not been given. He reports his last dose was 2 days ago. He also has an echocardiogram ordered for today due to his chest pain. Nephrology was consulted given his chronic renal failure. He is
[2023-08-12] MEDS: carvediloL 25 MG TABLET PO ×2 (10:04→20:53)
[2023-08-12] MEDS: ASPIRIN 81 MG CHEWABLE TABLET PO (10:05)
[2023-08-12] MEDS: ATORVASTATIN 40 MG TABLET 80 MG PO (10:05)
[2023-08-12] MEDS: amLODIPine BESYLATE 5 MG TABLET 10 MG PO (10:05)
[2023-08-12] MEDS: hydrALAZINE HCL 50 MG TABLET PO ×3 (10:06→17:37)
[2023-08-12] MEDS: BUMETANIDE INJ 1 MG/4 ML VIAL IV PUSH (10:06)
--- NOTE | 2023-08-12 10:50 | PM.PNNEP ---
Progress Note: A&P Assessment and Plan (1) Chronic kidney disease (CKD), stage V: Code(s): N18.5 - Chronic kidney disease, stage 5 Status: Chronic Assessment and Plan: due to biopsy proven diabetes and hypertension contributing factors include vascular disease (CVA + hyperlipdemia) outpatient testing demonstrated a normal ultrasound, nephrotic range proteinuria, and a negative serological profile kidney disease/renal function has been slowly deteriorating in the last 6 - 7 months now having issues with volume overload and difficult to control hypertension no critical electrolytes but may have some mild uremic symptoms (nausea and poor oral intake) in association with mild metabolic acidosis dialysis initiation planned once HD catheter placed outpatient dialysis being arranged (2) Chest pain: Code(s): R07.9 - Chest pain, unspecified Status: Acute Assessment and Plan: resolved patient not interested in stress testing Echo results noted - diastolic dysfunction noted continue supportive care (3) Hypertension: Qualifiers: Hypertension type: unspecified Qualified Code(s): I10 - Essential (primary) hypertension Code(s): I10 - Essential (primary) hypertension Status: Chronic Assessment and Plan: quite elevated and has been more difficult to control recently resume on home medications once dialysis initiated, will add back PATIENCE-I or ARB use PRN IV medications for BP control follow trend of hemodynamics (4) Anemia: Code(s): D64.9 - Anemia, unspecified Status: Chronic Assessment and Plan: presumably due to advanced CKD anemia studies with evidence of iron deficiency will give IV venofer with dialysis once initiated Epogen once HD initiated follow trend of H/H (5) Diabetes mellitus with chronic kidney disease: Code(s): E11.22 - Type 2 diabetes mellitus with diabetic chronic kidney disease Status: Chronic Assessment and Plan: follow accu-cheks glycemic control per hospitalists . Will continue to follow. Subjective Date/time seen: 08/12/23 10:50 Interval history: Follow-up for chronic kidney disease with progression to end stage renal disease. Appears to be doing reasonably well; breathing/respiratory status stable if not better; no further chest pain/discomfort at this time; seen by Surgery with tentative plan for HD catheter on ; no issues overnight or earlier this morning. Exam Narrative: General: middle aged WD/WN male in NAD Heart: normal S1 and S2; no rub Lungs: decreased at the bases Abdomen: soft, nontender, nondistended, positive bowel sounds Extremities: no cyanosis or clubbing; 2+ edema Skin: warm and dry Objective Data Vital Signs Vital Signs: Vital Signs Temp Pulse Resp BP Pulse Ox O2 Del Method 08/12/23 10:00 70 08/12/23 08:00 Room Air 08/12/23 08:00 71 08/12/23 10:04 70 08/12/23 09:01 97 Room Air 08/12/23 07:37 98.7 F 71 18 169/91 H 97 08/12/23 06:06 75 08/12/23 04:00 66 08/12/23 04:39 98.7 F 65 18 154/88 H 95 08/12/23 04:00 64 20 96 Room Air 08/12/23 02:00 64 08/12/23 00:00 79 08/11/23 22:00 82 08/11/23 20:00 80 08/11/23 23:55 92 20 96 Room Air 08/11/23 23:12 98.8 F 84 20 196/102 H 96 08/11/23 23:28 92 08/11/23 20:00 80 18 97 Room Air 08/11/23 19:42 98.2 F 80 18 147/83 H 97 08/11/23 18:30 180/119 H 08/11/23 18:00 77 08/11/23 16:00 86 08/11/23 14:00 97 08/11/23 16:00 Room Air 08/11/23 13:18 97.1 F L 91 16 200/116 H 99 08/11/23 16:07 98.7 F 84 18 196/105 H 98 08/11/23 13:13 97.8 F 90 19 190/115 H 97 08/11/23 12:19 85 21 H 189/116 H 98 Intake/Output Intake/Output: Intake & Output 08/09/23 08/10/23 08/11/23 08/12/23 23:59 23:59 23
--- NOTE | 2023-08-12 10:50 | P.PNNP_ITS ---
Progress Note: A&P Assessment and Plan (1) Chronic kidney disease (CKD), stage V: Code(s): N18.5 - Chronic kidney disease, stage 5 Status: Chronic Assessment and Plan: * due to biopsy proven diabetes and hypertension * contributing factors include vascular disease (CVA + hyperlipdemia) * outpatient testing demonstrated a normal ultrasound, nephrotic range proteinuria, and a negative serological profile * kidney disease/renal function has been slowly deteriorating in the last 6 - 7 months * now having issues with volume overload and difficult to control hypertension * no critical electrolytes but may have some mild uremic symptoms (nausea and poor oral intake) in association with mild metabolic acidosis * dialysis initiation planned once HD catheter placed * outpatient dialysis being arranged (2) Chest pain: Code(s): R07.9 - Chest pain, unspecified Status: Acute Assessment and Plan: * resolved * patient not interested in stress testing * Echo results noted - diastolic dysfunction noted * continue supportive care (3) Hypertension: Qualifiers: Hypertension type: unspecified Qualified Code(s): I10 - Essential (primary) hypertension Code(s): I10 - Essential (primary) hypertension Status: Chronic Assessment and Plan: * quite elevated and has been more difficult to control recently * resume on home medications * once dialysis initiated, will add back PATIENCE-I or ARB * use PRN IV medications for BP control * follow trend of hemodynamics (4) Anemia: Code(s): D64.9 - Anemia, unspecified Status: Chronic Assessment and Plan: * presumably due to advanced CKD * anemia studies with evidence of iron deficiency * will give IV venofer with dialysis once initiated * Epogen once HD initiated * follow trend of H/H (5) Diabetes mellitus with chronic kidney disease: Code(s): E11.22 - Type 2 diabetes mellitus with diabetic chronic kidney disease Status: Chronic Assessment and Plan: * follow accu-cheks * glycemic control per hospitalists . Will continue to follow. Subjective Date/time seen: 08/12/23 10:50 Interval history: Follow-up for chronic kidney disease with progression to end stage renal disease. Appears to be doing reasonably well; breathing/respiratory status stable if not better; no further chest pain/discomfort at this time; seen by Surgery with tentative plan for HD catheter on ; no issues overnight or earlier this morning. Exam Narrative: General: middle aged WD/WN male in NAD Heart: normal S1 and S2; no rub Lungs: decreased at the bases Abdomen: soft, nontender, nondistended, positive bowel sounds Extremities: no cyanosis or clubbing; 2+ edema Skin: warm and dry Objective Data Vital Signs Vital Signs: Vital Signs Temp Pulse Resp BP Pulse Ox O2 Del Method 08/12/23 10:00 70 08/12/23 08:00 Room Air 08/12/23 08:00 71 08/12/23 10:04 70 08/12/23 09:01 97 Room Air 08/12/23 07:37 98.7 F 71 18 169/91 H 97 08/12/23 06:06 75 08/12/23 04:00 66 08/12/23 04:39 98.7 F 65 18 154/88 H 95 08/12/23 04:00 64 20 96 Room Air 08/12/23 02:00 64 08/12/23 00:00 79 08/11/23 22:00 82
[2023-08-12 12:08] LABS: Glucose Point of Care 142 mg/dl (65-105)
[2023-08-12 16:53] LABS: Glucose Point of Care 140 mg/dl (65-105)
[2023-08-12 19:52] LABS: Iron 48 ug/dL (49-181)
[2023-08-12 20:02] LABS: Percent Iron Saturation 18 % (20-50)
[2023-08-12 20:10] LABS: Glucose Point of Care 155 mg/dl (65-105)
[2023-08-13] VITALS (11 sets, daily range): BP systolic 126–173; BP diastolic 66–83; PULSE 59–76; RESP 17–18; TEMP 36.2–36.8; O2SAT 96–99
--- NOTE | 2023-08-13 00:21 | PC.NURSE ---
Patient transferred to [facility] in stable condition. Transport is being done via bed, all belongings are being sent with the patient. Report called to Sandy GREENE.
[2023-08-13 07:09] LABS: Hemoglobin 10.5 g/dL (14.0-18.0); Mean Corpuscular HGB Conc 31.8 g/dl (32-36); Mean Corpuscular Hemoglobin 28.2 pg (26-34); Mean Corpuscular Volume 88.5 fl (80-100); Mean Platelet Volume 12.6 fl (7.4-10.4); Platelet Count Result 137 k/mm3 (150-375); Red Blood Count 3.73 M/mm3 (4.6-6.20); Red Cell Distribution Width 14.1 % (11.5-14.5); White Blood Count 4.5 K/mm3 (4.5-10.0)
[2023-08-13 07:14] LABS: Anion Gap 8 mmol/L (8-16); Blood Urea Nitrogen 78 mg/dL (9-20); Carbon Dioxide 21 mmol/L (22-30); Chloride 109 mmol/L (98-107); Estimated CRCL calculation 10 ml/min; Estimated Glomerular Filt Rate 6; Glucose 108 mg/dL (65-110); Magnesium 2.2 mg/dL (1.6-2.3); Sodium 138 mmol/L (137-145)
[2023-08-13 07:26] LABS: Glucose Point of Care 100 mg/dl (65-105)
[2023-08-13] MEDS: carvediloL 25 MG TABLET PO ×2 (08:13→21:26)
[2023-08-13] MEDS: ASPIRIN 81 MG CHEWABLE TABLET PO (08:16)
[2023-08-13] MEDS: amLODIPine BESYLATE 5 MG TABLET 10 MG PO (08:17)
[2023-08-13] MEDS: ATORVASTATIN 40 MG TABLET 80 MG PO (08:17)
[2023-08-13] MEDS: hydrALAZINE HCL 50 MG TABLET PO ×3 (08:17→17:18)
[2023-08-13] MEDS: BUMETANIDE INJ 1 MG/4 ML VIAL IV PUSH (08:18)
--- NOTE | 2023-08-13 09:30 | PM.PNGS ---
Progress Note: A&P Assessment and Plan (1) Chronic kidney disease, stage 5: Code(s): N18.5 - Chronic kidney disease, stage 5 Status: Acute Assessment and Plan: Plan for tunneled hemodialysis catheter placement tomorrow by Dr. Du. Will make him NPO after midnight. Continue to hold Plavix. (2) Antiplatelet or antithrombotic long-term use: Code(s): Z79.02 - moth exterminator (current) use of antithrombotics/antiplatelets Status: Acute Assessment and Plan: Hold Plavix for surgery Plan I have discussed the patient's case and plan of care with Dr. Du. Subjective Subjective Date/Time Seen: 08/13/23 09:30 Patient reports: no new complaints Interval history: Patient with no acute events overnight. Still making some urine and being diuresed. He denies chest pain or SOB today. No other complaints. Exam Const: General: comfortable and no acute distress Orientation/consciousness: patient oriented x3 Chest: Chest palpation & inspection: normal inspection of the chest Resp: Effort & Inspection: normal respiratory effort Auscultation: clear to auscultation bilaterally Extrem: General: edema bilateral (lower extremity 3+ pitting) Objective Data Vital Signs Vital Signs: Vital Signs - 24 hr 08/12/23 10:04 08/12/23 10:00 08/12/23 11:52 Temperature 98.4 F Pulse Rate 70 70 74 Respiratory Rate 18 Blood Pressure 138/77 Pulse Oximetry 98 Oxygen Delivery 08/12/23 12:00 08/12/23 12:00 08/12/23 14:00 Temperature Pulse Rate 75 69 Respiratory Rate Blood Pressure Pulse Oximetry Oxygen Delivery Room Air 08/12/23 16:00 08/12/23 16:00 08/12/23 16:00 Temperature 98.5 F Pulse Rate 64 65 Respiratory Rate 18 Blood Pressure 137/71 Pulse Oximetry 98 Oxygen Delivery Room Air 08/12/23 18:00 08/12/23 19:36 08/12/23 20:53 Temperature 98.2 F Pulse Rate 64 65 65 Respiratory Rate 18 Blood Pressure 116/64 Pulse Oximetry 96 Oxygen Delivery 08/12/23 23:23 08/12/23 20:00 08/13/23 00:00 Temperature 98.7 F Pulse Rate 63 64 59 L Respiratory Rate 18 Blood Pressure 124/45 L Pulse Oximetry 96 Oxygen Delivery 08/13/23 04:00 08/13/23 04:00 08/13/23 08:13 Temperature 98.0 F Pulse Rate 60 61 65 Respiratory Rate 18 Blood Pressure 173/83 H Pulse Oximetry 98 Oxygen Delivery 08/13/23 08:15 Temperature Pulse Rate Respiratory Rate Blood Pressure Pulse Oximetry 99 Oxygen Delivery Room Air Intake/Output Intake/Output: Intake & Output 08/10/23 08/11/23 08/12/23 08/13/23 23:59 23:59 23:59 23:59 Intake Total 1140 240 240 Output Total 1190 650 450 Balance -50 -410 -210 Meds/Results Medications: Active Medications Generic Name Dose Route Start Last Admin Trade Name Freq PRN Reason Stop Dose Admin Acetaminophen 650 mg 08/11/23 14:02 Acetaminophen 325 Mg Tablet PO Q6H PRN Mild Pain (1-3) or Fever Amlodipine Besylate 10 mg 08/12/23 09:00 08/13/23 08:17 Amlodipine Besylate 5 Mg Tablet PO 10 mg DAILY LILIAN Administration Aspirin 81 mg 08/12/23 08:00 08/13/23 08:16 Aspirin 81 Mg Chewable Tablet PO 81 mg DAILY@0800 LILIAN Administration Atorvastatin Calcium 80 mg 08/12/23 09:00 08/13/23 08:17 Atorvastatin 40 Mg Tablet PO 80 mg DAILY LILIAN Administration Carvedilol 25 mg 08/11/23 22:40 08/13/23 08:13 Carvedilol 25 Mg Tablet PO 25 mg Q12HR LILIAN Administration Clopidogrel Bisulfate 75 mg 08/13/23 09:00 Clopidogrel Bisulfate 75 Mg Tablet PO DAILY LILIAN Dextrose 12.5 gm 08/11/23 22:37 Dextrose 50% 25 Gm/50 Ml Syringe IV PUSH PRN PRN Hypoglycemia Protocol Glucagon 1 mg 08/11/23 22:37 Glucagon For Inj 1 Mg Vial IM PRN PRN Hypoglycemia Protocol Glucose 15 gm 08/11/23 22:37 Glucose Oral Gel 15 Gm Of Glucse In 37.5 Gm Tube PO PRN PRN Hypoglycemia Protocol Hydralazine HC
[2023-08-13 11:34] LABS: Glucose Point of Care 130 mg/dl (65-105)
--- NOTE | 2023-08-13 11:45 | PM.PNNEP ---
Progress Note: A&P Assessment and Plan (1) End stage renal disease: Code(s): N18.6 - End stage renal disease Status: Chronic Assessment and Plan: due to biopsy proven diabetes and hypertension contributing factors include vascular disease (CVA + hyperlipdemia) outpatient testing demonstrated a normal ultrasound, nephrotic range proteinuria, and a negative serological profile kidney disease/renal function has been slowly deteriorating in the last 6 - 7 months now having issues with volume overload, difficult to control hypertension, and mild uremic symptoms however, no critical electrolyte abnormalities dialysis initiation planned once HD catheter placed - this tentatively scheduled for tomorrow outpatient dialysis being arranged (2) Chest pain: Code(s): R07.9 - Chest pain, unspecified Status: Acute Assessment and Plan: resolved patient not interested in stress testing Echo results noted - diastolic dysfunction noted continue supportive care (3) Hypertension: Qualifiers: Hypertension type: unspecified Qualified Code(s): I10 - Essential (primary) hypertension Code(s): I10 - Essential (primary) hypertension Status: Chronic Assessment and Plan: quite elevated and has been more difficult to control recently resumed on home medications once dialysis initiated, will add back PATIENCE-I or ARB use PRN IV medications for BP control follow trend of hemodynamics (4) Anemia: Code(s): D64.9 - Anemia, unspecified Status: Chronic Assessment and Plan: presumably due to advanced CKD anemia studies with evidence of iron deficiency will give IV venofer with dialysis once initiated Epogen once HD initiated follow trend of H/H (5) Diabetes mellitus with chronic kidney disease: Code(s): E11.22 - Type 2 diabetes mellitus with diabetic chronic kidney disease Status: Chronic Assessment and Plan: follow accu-cheks glycemic control per hospitalists . Will continue to follow. Subjective Date/time seen: 08/13/23 11:45 Interval history: Follow-up for chronic kidney disease with progression to end stage renal disease. No apparent distress noted at the the time of my visit but states that he just does not feel well but unable to elaborate much more than that; reasonable urine output in response to diuretic therapy but at the expense at what renal function he has left; no events overnight or earlier this morning. Exam Narrative: General: middle aged WD/WN male in NAD Heart: normal S1 and S2; no rub Lungs: decreased at the bases Abdomen: soft, nontender, nondistended, positive bowel sounds Extremities: no cyanosis or clubbing; 2+ edema Skin: no rash Objective Data Vital Signs Vital Signs: Vital Signs Temp Pulse Resp BP Pulse Ox O2 Del Method 08/13/23 11:00 97.1 F L 60 17 96 08/13/23 08:15 Room Air 08/13/23 08:15 99 Room Air 08/13/23 08:13 65 08/13/23 04:00 98.0 F 61 18 173/83 H 98 08/13/23 04:00 60 08/13/23 00:00 59 L 08/12/23 20:00 64 08/12/23 23:23 98.7 F 63 18 124/45 L 96 08/12/23 20:53 65 08/12/23 19:36 98.2 F 65 18 116/64 96 Intake/Output Intake/Output: Intake & Output 08/10/23 08/11/23 08/12/23 08/13/23 23:59 23:59 23:59 23:59 Intake Total 1140 240 480 Output Total 1190 650 950 Balance -50 410 470 Meds/Results Medications: Active Medications Generic Name Dose Route Start Last Admin Trade Name Freq PRN Reason Stop Dose Admin Acetaminophen 650 mg 08/11/23 14:02 Acetaminophen 325 Mg Tablet PO Q6H PRN Mild Pain (1-3) or Fever Amlodipine Besylate 10 mg 08/12/23 09:00 08/13/23 08:17 Amlodipine Besylate 5 Mg Tablet PO 10 mg DAILY LILIAN Administration Aspirin 81 mg 08/12/23 08:00 08/13/23 08:16 Aspirin 81 Mg Chewable Tablet PO 81 mg DA
--- NOTE | 2023-08-13 11:45 | P.PNNP_ITS ---
Progress Note: A&P Assessment and Plan (1) End stage renal disease: Code(s): N18.6 - End stage renal disease Status: Chronic Assessment and Plan: * due to biopsy proven diabetes and hypertension * contributing factors include vascular disease (CVA + hyperlipdemia) * outpatient testing demonstrated a normal ultrasound, nephrotic range proteinuria, and a negative serological profile * kidney disease/renal function has been slowly deteriorating in the last 6 - 7 months * now having issues with volume overload, difficult to control hypertension, and mild uremic symptoms * however, no critical electrolyte abnormalities * dialysis initiation planned once HD catheter placed - this tentatively scheduled for tomorrow * outpatient dialysis being arranged (2) Chest pain: Code(s): R07.9 - Chest pain, unspecified Status: Acute Assessment and Plan: * resolved * patient not interested in stress testing * Echo results noted - diastolic dysfunction noted * continue supportive care (3) Hypertension: Qualifiers: Hypertension type: unspecified Qualified Code(s): I10 - Essential (primary) hypertension Code(s): I10 - Essential (primary) hypertension Status: Chronic Assessment and Plan: * quite elevated and has been more difficult to control recently * resumed on home medications * once dialysis initiated, will add back PATIENCE-I or ARB * use PRN IV medications for BP control * follow trend of hemodynamics (4) Anemia: Code(s): D64.9 - Anemia, unspecified Status: Chronic Assessment and Plan: * presumably due to advanced CKD * anemia studies with evidence of iron deficiency * will give IV venofer with dialysis once initiated * Epogen once HD initiated * follow trend of H/H (5) Diabetes mellitus with chronic kidney disease: Code(s): E11.22 - Type 2 diabetes mellitus with diabetic chronic kidney disease Status: Chronic Assessment and Plan: * follow accu-cheks * glycemic control per hospitalists . Will continue to follow. Subjective Date/time seen: 08/13/23 11:45 Interval history: Follow-up for chronic kidney disease with progression to end stage renal disease. No apparent distress noted at the the time of my visit but states that he just does not feel well but unable to elaborate much more than that; reasonable urine output in response to diuretic therapy but at the expense at what renal function he has left; no events overnight or earlier this morning. Exam Narrative: General: middle aged WD/WN male in NAD Heart: normal S1 and S2; no rub Lungs: decreased at the bases Abdomen: soft, nontender, nondistended, positive bowel sounds Extremities: no cyanosis or clubbing; 2+ edema Skin: no rash Objective Data Vital Signs Vital Signs: Vital Signs Temp Pulse Resp BP Pulse Ox O2 Del Method 08/13/23 11:00 97.1 F L 60 17 96 08/13/23 08:15 Room Air 08/13/23 08:15 99 Room Air 08/13/23 08:13 65 08/13/23 04:00 98.0 F 61 18 173/83 H 98 08/13/23 04:00 60 08/13/23 00:00 59 L 08/12/23 20:00 64 08/12/23 23:23 98.7 F 63 18 124/45 L 96 08/12/23 20:53 65 08/12/23 19:36 98.2 F 65 18 116/64 96 Intake/Output Intake/Out
--- NOTE | 2023-08-13 12:02 | PM.IMPN ---
Progress Note: A&P Assessment and Plan (1) Chest pain: Code(s): R07.9 - Chest pain, unspecified Status: Acute Assessment and Plan: -continue telemetry monitoring -continue ASA 81 mg daily -patient declines stress test at this time -echocardiogram 08/11, reveals moderate global hypokinesis EF 40/45%, grade 2 diastolic dysfunction, . Ventricular enlargement with moderate eccentric left ventricular hypertrophy He certainly should have close follow-up with Cardiology. -presumably for his severe carotid disease he is on Plavix and atorvastatin and for hypertension Coreg. (2) Chronic kidney disease, stage 5: Code(s): N18.5 - Chronic kidney disease, stage 5 Status: Acute Assessment and Plan: History of creatinine 5.6 now continued to increase. His creatinine is 8.10 this admission. He does still produce urine -nephrology consulted. The patient is -continue NPO and being scheduled for tunneled dialysis catheter with surgery. 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 (3) Heart failure with preserved ejection fraction: Code(s): I50.30 - Unspecified diastolic (congestive) heart failure Status: Acute Assessment and Plan: -daily weights, strict intake output, 1800 cc daily fluid restriction. -he received Bumex 1 mg x 1 and Lasix 40 mg IV x1. Defer further management to Nephrology pending dialysis. -he is on Coreg and hydralazine. Jardiance and spironolactone are considerations although he has advanced kidney failure. (4) Type 2 diabetes mellitus: Code(s): E11.9 - Type 2 diabetes mellitus without complications Status: Acute Assessment and Plan: -this has been diet controlled. Blood sugars controlled currently. -continue Accu-Cheks a.c. HS with hypoglycemia protocol and insulin sliding scale. (5) Anemia: Code(s): D64.9 - Anemia, unspecified Status: Chronic Assessment and Plan: -likely due to anemia of chronic disease. -hgb is 10.5 (6) Elevated d-dimer: Code(s): R79.89 - Other specified abnormal findings of blood chemistry Status: Acute Assessment and Plan: -only mildly elevated on admission. V/Q scan resulting indeterminate probability of PE. -he received 100 mg of Lovenox on admission. -does not want blood thinners ongoing. -mild acute thrombocytopenia, -continue to monitor. (7) Hypertensive urgency: Code(s): I16.0 - Hypertensive urgency Status: Acute Assessment and Plan: -blood pressure size 233/140 on admission. -better controlled now. Continue Coreg 25 mg p.o. b.i.d., amlodipine 10 mg p.o. q.day, hydralazine 50 mg p.o. t.i.d. and any diuresis/dialysis per Nephrology. (8) Carotid artery disease: Code(s): I77.9 - Disorder of arteries and arterioles, unspecified Status: Acute Assessment and Plan: -unclear the follow-up/management he has had. Continue atorvastatin aspirin and Plavix. Should have close follow-up with vascular. (9) Cerebrovascular accident: Onset Date: 02/2019 Code(s): I63.9 - Cerebral infarction, unspecified Status: Acute (10) Tobacco abuse: Code(s): Z72.0 - Tobacco use Status: Acute Assessment and Plan: -counseling provided. -nicotine patch as needed. Plan 58-year-old male with a history of active tobacco abuse, hypertension, heart failure with preserved ejection fraction, diet-controlled type 2 diabetes mellitus, carotid artery disease and history of cerebrovascular accident, who presents with chest discomfort along with shortness of breath and lower extremity edema. Upon presentation in [facility] his blood pressure as high as 233/140 with the EKG demonstrating sinus rhythm with changes consistent with LVH, elevated troponin at 0.056, proBNP greater than 30,000, acute renal failure. V/Q scan demonstrated intermediate probability for PE, he received IV Lasix I
[2023-08-13 16:21] LABS: Glucose Point of Care 159 mg/dl (65-105)
[2023-08-13 21:49] LABS: Glucose Point of Care 154 mg/dl (65-105)
[2023-08-14] VITALS (29 sets, daily range): BP systolic 125–176; BP diastolic 75–95; PULSE 50–68; RESP 14–20; TEMP 35.8–37; O2SAT 95–100
[2023-08-14 06:41] LABS: Hematocrit 33.3 % (42.0-52.0); Hemoglobin 10.5 g/dL (14.0-18.0); Mean Corpuscular HGB Conc 31.5 g/dl (32-36); Mean Corpuscular Volume 88.8 fl (80-100); Platelet Count Result 128 k/mm3 (150-375); Red Blood Count 3.75 M/mm3 (4.6-6.20); Red Cell Distribution Width 14.3 % (11.5-14.5); White Blood Count 4.9 K/mm3 (4.5-10.0)
[2023-08-14 06:53] LABS: Alanine Aminotransferase 19 U/L (6-50); Albumin Level 3.7 g/dL (3.5-5.1); Alkaline Phosphatase 77 U/L (38-126); Anion Gap 12 mmol/L (8-16); Aspartate Amino Transferase 20 U/L (17-59); Bilirubin,Total 0.7 mg/dL (0.2-1.3); Blood Urea Nitrogen 84 mg/dL (9-20); Carbon Dioxide 17 mmol/L (22-30); Chloride 108 mmol/L (98-107); Estimated CRCL calculation 10 ml/min; Estimated Glomerular Filt Rate 6; Glucose 106 mg/dL (65-110); Sodium 137 mmol/L (137-145)
--- NOTE | 2023-08-14 07:20 | WPDHPUPDATE1 ---
History and Physical Update Update Date/Time: 08/14/23 07:20 History and Physical has been reviewed, including an updated exam of the patient. There are NO changes in the patient's condition. Risks, benefits, and alternatives have been discussed and questions answered. Patient agrees to proceed with procedure.
[2023-08-14 07:59] LABS: Glucose Point of Care 123 mg/dl (65-105)
[2023-08-14] MEDS: carvediloL 25 MG TABLET PO ×2 (08:46→20:54)
[2023-08-14] MEDS: amLODIPine BESYLATE 5 MG TABLET 10 MG PO (08:46)
--- NOTE | 2023-08-14 09:45 | WPDANESEPPF ---
Anes - Initial Pre Proc Eval Procedure: Operation Date: 08/14/23 10:30 Proposed Procedures p Insertion Tunneled Dialysis Catheter - Florecita Du MD Date/Time: 08/14/23 09:45 Surgeon: Tam Barrett MD Pre Op Diagnosis: Chest pain Patient Data Age: 58 Gender: M Height: 1.78 m Weight: 101 kg Last Vital Signs Temp 36.6 C 08/14/23 05:08 Pulse 58 L 08/14/23 08:50 Resp 20 08/14/23 05:08 BP 149/93 H 08/14/23 05:08 Pulse Ox 97 08/14/23 05:08 O2 Del Method Room Air 08/13/23 20:00 Allergies Allergy/AdvReac Type Severity Reaction Status Date / Time tree nut Allergy Intermediate Itching Verified 08/11/23 07:18 Penicillins Allergy Unknown Unknown Verified 08/11/23 07:18 Home Medications Medication Instructions Recorded Confirmed Type amlodipine 10 mg tablet 10 mg PO DAILY 01/25/22 08/11/23 History atorvastatin 80 mg tablet 80 mg PO DAILY 01/25/22 08/11/23 History carvedilol 25 mg tablet 25 mg PO BID 01/25/22 08/11/23 History clopidogrel 75 mg tablet 75 mg PO DAILY 01/25/22 08/11/23 History hydralazine 50 mg tablet 50 mg PO TID 08/11/23 08/11/23 History Laboratory Tests 08/13/23 08/13/23 08/13/23 11:23 16:12 21:22 WBC RBC Hgb Hct MCV MCH MCHC RDW Plt Count MPV Sodium Potassium Chloride Carbon Dioxide Anion Gap BUN Creatinine Estim Creat Clear Calc Estimated GFR Glucose POC Capillary Glucose 130 H mg/dl 159 H mg/dl 154 H mg/dl (65-105) (65-105) (65-105) Calcium Total Bilirubin AST ALT Alkaline Phosphatase Total Protein Albumin 08/14/23 08/14/23 06:09 07:39 WBC 4.9 K/mm3 (4.5-10.0) RBC 3.75 L M/mm3 (4.6-6.20) Hgb 10.5 L g/dL (14.0-18.0) Hct 33.3 L % (42.0-52.0) MCV 88.8 fl (80-100) MCH 28.0 pg (26-34) MCHC 31.5 L g/dl (32-36) RDW 14.3 % (11.5-14.5) Plt Count 128 L k/mm3 (150-375) MPV 12.0 H fl (7.4-10.4) Sodium 137 mmol/L (137-145) Potassium 4.0 mmol/L (3.4-5.0) Chloride 108 H mmol/L (98-107) Carbon Dioxide 17 L mmol/L (22-30) Anion Gap 12 mmol/L (8-16) BUN 84 H mg/dL (9-20) Creatinine 9.20 H mg/dL (0.7-1.3) Estim Creat Clear Calc 10 ml/min Estimated GFR 6 L (59 - ) Glucose 106 mg/dL (65-110) POC Capillary Glucose 123 H mg/dl (65-105) Calcium 7.0 L mg/dL (8.4-10.2) Total Bilirubin 0.7 mg/dL (0.2-1.3) AST 20 U/L (17-59) ALT 19 U/L (6-50) Alkaline Phosphatase 77 U/L (38-126) Total Protein 6.0 L g/dL (6.3-8.2) Albumin 3.7 g/dL (3.5-5.1) Patient hx anesthesia problems: none Family hx anesthesia problems: none Results Review: All pre-operative results and documents have been reviewed as part of the pre-operative evaluation. [facility] Past Medical History Medical History Anxiety Carotid artery disease Severe stenosis of the intracranial internal carotid arteries on CT taken 03/05/2019. 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 Elevated d-dimer Heart failure with preserved ejection fraction Echo in November 2022 showed normal LV size and function with an EF of 50 to 55%, mildly increased left ventricular wall thickness, and grade 2 diastolic dysfunction. Hyperlipidemia Hypertension Tobacco abuse Type 2 diabetes mellitus Surgical History Surgical History (Reviewed 08/14/23 @ 09:45 by Thomas Cannon
[2023-08-14 10:06] LABS: Glucose Point of Care 99 mg/dl (65-105)
[2023-08-14] MEDS: ceFAZolin 2 GM/D5W 50 ML 2 GM/50 ML BAG IVPB (10:16)
[2023-08-14] MEDS: LIDO 1%/EPINEPHRINE 1:100,000 20 ML VIAL 10 ML INFILTRATE (10:43)
[2023-08-14] MEDS: HEPARIN SODIUM, PORCINE 10,000 UNITS/10 ML VIAL 3000 UNITS IRRIGATION (10:47)
[2023-08-14] MEDS: HEPARIN SODIUM 5,000 UNITS/ML VIAL 5000 UNITS IRRIGATION (10:48)
[2023-08-14] MEDS: SODIUM CHLORIDE 0.9% IV 500 ML 30 ML IV CONT (11:08)
--- NOTE | 2023-08-14 11:14 | P.OP_ITS ---
Procedure Note - Detailed Date of Procedure 08/14/23 Pre-op Diagnosis acute on chronic renal failure Post-op Diagnosis Same Procedure Performed placement of 28 cm tunneled hemodialysis catheter in right internal jugular vein under both ultrasound and fluroscopic guidance Surgeon Florecita Du MD Anesthesia MAC and Local Indications 58-year-old male with multiple medical issues presenting with worsening renal failure requiring urgent hemodialysis Findings 1st stick RIJ Description of Procedure Patient was taken to the operating room and placed in the supine position. After adequate induction of MAC anesthesia, the patient was prepped and draped in normal sterile fashion. A time-out was then done to verify the patient's identity as well as the procedure being performed. I began by using the [employer] te and locating the right internal jugular vein. Once this was done, I localized the overlying skin. I then made a small incision in the skin. I then gained access into the right internal jugular vein with an 18 gauge needle. At this point, I threaded the guidewire into the right internal jugular vein. Placement of the guidewire was confirmed by both ultrasound and fluoroscopic guidance. I then went ahead and measured the 28 cm tunneled dialysis catheter to our stick site in the right neck. I then localized the tract going from the right chest to the right neck. I then made a small incision in the right chest and tunneled the catheter to the right neck. I then serially dilated the right internal jugular vein under fluoroscopic guidance. Once adequately dilated, I placed the dilating sheath over the guidewire into the right internal jugular vein under fluoroscopic visualization. Once this was noted to be in good position, I removed both the guidewire and dilator, now just leaving the sheath in the vein. I then went ahead and fed the previously tunneled catheter into the sheath. Once the catheter was fed and positioned correctly, I went ahead and peeled the sheath away. Final fluoroscopic view showed the catheter in good position from its insertion point in the right chest to its termination in the atrial caval junction. It was noted there was no kinking of the catheter. I was able to easily draw and flush from both ports of the catheter. I placed 2.2 and 2.3 cc of final heparin flush into each port as marked. The catheter was then sutured into place and the incision in the neck was closed with 4 O Monocryl subcuticular suture. The patient tolerated the procedure well and will be transferred to the recovery room in stable condition. Sterile dressing was placed on the catheter. Portable chest x-ray will be done in the PACU. Implants 28 cm tunneled hemodialysis catheter Estimated Blood Loss 25 Drains No Packing No Pathology None sent Complications No immediate complications Condition Stable Disposition PACU [facility] Billing Surgery - Charge Forward: Surgery Billing
[2023-08-14 11:27] LABS: Glucose Point of Care 116 mg/dl (65-105)
--- NOTE | 2023-08-14 11:30 | PM.IMPN ---
Progress Note: A&P Assessment and Plan (1) Chest pain: Code(s): R07.9 - Chest pain, unspecified Status: Acute Assessment and Plan: -continue telemetry monitoring -continue ASA 81 mg daily -echocardiogram 08/11, reveals moderate global hypokinesis EF 40/45%, grade 2 diastolic dysfunction, . Ventricular enlargement with moderate eccentric left ventricular hypertrophy -continue to encourage close follow-up with Cardiology. -presumably for his severe carotid disease he is on Plavix and atorvastatin and for hypertension Coreg. (2) Chronic kidney disease, stage 5: Code(s): N18.5 - Chronic kidney disease, stage 5 Status: Acute Assessment and Plan: History of creatinine 5.6 now continued to increase. His creatinine is 8.10 this admission. He does still produce urine -nephrology consulted. 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 Defer further management to Nephrology pending dialysis. -he is on Coreg and hydralazine. (4) Type 2 diabetes mellitus: Code(s): E11.9 - Type 2 diabetes mellitus without complications Status: Acute Assessment and Plan: -this has been diet controlled. Blood sugars controlled currently. -continue Accu-Cheks a.c. HS with hypoglycemia protocol and insulin sliding scale. (5) Anemia: Code(s): D64.9 - Anemia, unspecified Status: Chronic Assessment and Plan: -likely due to anemia of chronic disease. -hgb is 10.5 (6) Elevated d-dimer: Code(s): R79.89 - Other specified abnormal findings of blood chemistry Status: Acute Assessment and Plan: -only mildly elevated on admission. V/Q scan resulting indeterminate probability of PE. -he received 100 mg of Lovenox on admission. -does not want blood thinners ongoing. -mild acute thrombocytopenia, -continue to monitor. (7) Hypertensive urgency: Code(s): I16.0 - Hypertensive urgency Status: Acute Assessment and Plan: - BP, better controlled now 151/87 Continue Coreg 25 mg p.o. b.i.d., amlodipine 10 mg p.o. q.day, hydralazine 50 mg p.o. t.i.d. and any diuresis/dialysis per Nephrology. (8) Carotid artery disease: Code(s): I77.9 - Disorder of arteries and arterioles, unspecified Status: Acute Assessment and Plan: -unclear the follow-up/management he has had. Continue atorvastatin aspirin and Plavix. Should have close follow-up with vascular. (9) Cerebrovascular accident: Onset Date: 02/2019 Code(s): I63.9 - Cerebral infarction, unspecified Status: Acute (10) Tobacco abuse: Code(s): Z72.0 - Tobacco use Status: Acute Assessment and Plan: -counseling provided. -nicotine patch as needed. Plan 58-year-old male with a history of active tobacco abuse, hypertension, heart failure with preserved ejection fraction, diet-controlled type 2 diabetes mellitus, carotid artery disease and history of cerebrovascular accident, who presents with chest discomfort along with shortness of breath and lower extremity edema. Upon presentation in [facility] his blood pressure as high as 233/140 with the EKG demonstrating sinus rhythm with changes consistent with LVH, elevated troponin at 0.056, proBNP greater than 30,000, acute renal failure. V/Q scan demonstrated intermediate probability for PE, he received IV Lasix IV hydralazine nitroglycerin paste 325 mg of aspirin and Lovenox 100 mg. Admitted on 08/11 for further workup of multiple issues. GI prophylaxis: Not indicated DVT prophylaxis: Lines: Peripheral IV C
[2023-08-14 12:10] LABS: Glucose Point of Care 102 mg/dl (65-105)
[2023-08-14] MEDS: IRON SUCROSE COMPLEX 200 MG in SODIUM CHLORIDE 0.9% IV 100 ML 220 MG IVPB (17:00)
--- NOTE | 2023-08-14 17:26 | P.PNNP_ITS ---
Progress Note: A&P Assessment and Plan (1) End stage renal disease: Code(s): N18.6 - End stage renal disease Status: Chronic Assessment and Plan: * due to biopsy proven diabetes and hypertension * contributing factors include vascular disease (CVA + hyperlipdemia) * outpatient testing demonstrated a normal ultrasound, nephrotic range proteinuria, and a negative serological profile * kidney disease/renal function has been slowly deteriorating in the last 6 - 7 months * now having issues with volume overload, difficult to control hypertension, and mild uremic symptoms * however, no critical electrolyte abnormalities * HD today, tomorrow and day after * outpatient dialysis being arranged (2) Chest pain: Code(s): R07.9 - Chest pain, unspecified Status: Acute Assessment and Plan: * resolved * patient not interested in stress testing * Echo results noted - diastolic dysfunction noted * continue supportive care (3) Hypertension: Qualifiers: Hypertension type: unspecified Qualified Code(s): I10 - Essential (primary) hypertension Code(s): I10 - Essential (primary) hypertension Status: Chronic Assessment and Plan: * quite elevated and has been more difficult to control recently * resumed on home medications * will add back PATIENCE-I or ARB since dialysis has started * use PRN IV medications for BP control * follow trend of hemodynamics (4) Anemia: Code(s): D64.9 - Anemia, unspecified Status: Chronic Assessment and Plan: * presumably due to advanced CKD * anemia studies with evidence of iron deficiency * IV venofer with dialysis * Epogen with HD * follow trend of H/H (5) Diabetes mellitus with chronic kidney disease: Code(s): E11.22 - Type 2 diabetes mellitus with diabetic chronic kidney disease Status: Chronic Assessment and Plan: * follow accu-cheks * glycemic control per hospitalists . Will continue to follow. Subjective Date/time seen: 08/14/23 17:26 Interval history: Follow-up for chronic kidney disease with progression to end stage renal disease. S/P tunneled HD catheter placement earlier today and tolerating first dialysis treatment/session at the time of my visit (seen on HD at 5:16PM); no acute complaints voiced; no apparent distress noted. Exam Narrative: General: middle aged WD/WN male in NAD Heart: normal S1 and S2; no rub Lungs: decreased at the bases Abdomen: soft, nontender, nondistended, positive bowel sounds Extremities: no cyanosis or clubbing; 2+ edema Skin: no nodules Objective Data Vital Signs Vital Signs: Vital Signs Temp Pulse Resp BP Pulse Ox O2 Del Method 08/14/23 17:15 55 L 162/77 H 08/14/23 17:00 59 L 170/91 H 08/14/23 16:49 56 L 142/79 H 08/14/23 16:36 97.7 F 54 L 16 155/78 H 08/14/23 14:00 96.5 F L 55 L 16 138/78 100 08/14/23 13:42 Room Air 08/14/23 12:00 96.6 F L 55 L 16 139/80 96 08/14/23 11:35 55 L 14 142/78 H 95 Room Air 08/14/23 11:20 54 L 15 138/77 95 Room Air 08/14/23 11:08 98.1 F 54 L 17 140/75 98 Room Air 08/14/23 09:30 97.7 F 54 L 18 164/80 H 97 Room Air 08/14/23 08:50 58 L 08/14/23 08:46 68 08/14/23 05:08 97.8 F 60 20 149/
--- NOTE | 2023-08-14 17:26 | PM.PNNEP ---
Progress Note: A&P Assessment and Plan (1) End stage renal disease: Code(s): N18.6 - End stage renal disease Status: Chronic Assessment and Plan: due to biopsy proven diabetes and hypertension contributing factors include vascular disease (CVA + hyperlipdemia) outpatient testing demonstrated a normal ultrasound, nephrotic range proteinuria, and a negative serological profile kidney disease/renal function has been slowly deteriorating in the last 6 - 7 months now having issues with volume overload, difficult to control hypertension, and mild uremic symptoms however, no critical electrolyte abnormalities HD today, tomorrow and day after outpatient dialysis being arranged (2) Chest pain: Code(s): R07.9 - Chest pain, unspecified Status: Acute Assessment and Plan: resolved patient not interested in stress testing Echo results noted - diastolic dysfunction noted continue supportive care (3) Hypertension: Qualifiers: Hypertension type: unspecified Qualified Code(s): I10 - Essential (primary) hypertension Code(s): I10 - Essential (primary) hypertension Status: Chronic Assessment and Plan: quite elevated and has been more difficult to control recently resumed on home medications will add back PATIENCE-I or ARB since dialysis has started use PRN IV medications for BP control follow trend of hemodynamics (4) Anemia: Code(s): D64.9 - Anemia, unspecified Status: Chronic Assessment and Plan: presumably due to advanced CKD anemia studies with evidence of iron deficiency IV venofer with dialysis Epogen with HD follow trend of H/H (5) Diabetes mellitus with chronic kidney disease: Code(s): E11.22 - Type 2 diabetes mellitus with diabetic chronic kidney disease Status: Chronic Assessment and Plan: follow accu-cheks glycemic control per hospitalists . Will continue to follow. Subjective Date/time seen: 08/14/23 17:26 Interval history: Follow-up for chronic kidney disease with progression to end stage renal disease. S/P tunneled HD catheter placement earlier today and tolerating first dialysis treatment/session at the time of my visit (seen on HD at 5:16PM); no acute complaints voiced; no apparent distress noted. Exam Narrative: General: middle aged WD/WN male in NAD Heart: normal S1 and S2; no rub Lungs: decreased at the bases Abdomen: soft, nontender, nondistended, positive bowel sounds Extremities: no cyanosis or clubbing; 2+ edema Skin: no nodules Objective Data Vital Signs Vital Signs: Vital Signs Temp Pulse Resp BP Pulse Ox O2 Del Method 08/14/23 17:15 55 L 162/77 H 08/14/23 17:00 59 L 170/91 H 08/14/23 16:49 56 L 142/79 H 08/14/23 16:36 97.7 F 54 L 16 155/78 H 08/14/23 14:00 96.5 F L 55 L 16 138/78 100 08/14/23 13:42 Room Air 08/14/23 12:00 96.6 F L 55 L 16 139/80 96 08/14/23 11:35 55 L 14 142/78 H 95 Room Air 08/14/23 11:20 54 L 15 138/77 95 Room Air 08/14/23 11:08 98.1 F 54 L 17 140/75 98 Room Air 08/14/23 09:30 97.7 F 54 L 18 164/80 H 97 Room Air 08/14/23 08:50 58 L 08/14/23 08:46 68 08/14/23 05:08 97.8 F 60 20 149/93 H 97 08/14/23 04:00 63 08/14/23 00:00 67 08/13/23 22:00 98.2 F 61 18 132/66 98 08/13/23 20:00 Room Air 08/13/23 20:00 64 08/13/23 21:26 76 Intake/Output Intake/Output: Intake & Output 08/11/23 08/12/23 08/13/23 08/14/23 23:59 23:59 23:59 23:59 Intake Total 7777 101 3688 590 Output Total 1190 650 950 500 Balance -50 -410 310 90 Meds/Results Medications: Active Medications Generic Name Dose Route Start Last Admin Trade Name Freq PRN Reason Stop Dose Admin Acetaminophen 650 mg 08/11/23 14:02 Acetaminophen 325 Mg Tablet PO Q6H PRN Mild Pain (1-3) or Fever Amlodip
[2023-08-14 20:36] LABS: Glucose Point of Care 166 mg/dl (65-105)
[2023-08-15] VITALS (29 sets, daily range): BP systolic 125–166; BP diastolic 60–91; PULSE 56–91; RESP 16–18; TEMP 35.9–37; O2SAT 94–99
[2023-08-15 06:34] LABS: Hematocrit 34.9 % (42.0-52.0); Mean Corpuscular HGB Conc 31.5 g/dl (32-36); Mean Corpuscular Hemoglobin 27.9 pg (26-34); Mean Corpuscular Volume 88.6 fl (80-100); Mean Platelet Volume 12.6 fl (7.4-10.4); Platelet Count Result 131 k/mm3 (150-375); Red Blood Count 3.94 M/mm3 (4.6-6.20); White Blood Count 4.9 K/mm3 (4.5-10.0)
[2023-08-15 06:55] LABS: Alanine Aminotransferase 17 U/L (6-50); Albumin Level 3.6 g/dL (3.5-5.1); Alkaline Phosphatase 78 U/L (38-126); Anion Gap 7 mmol/L (8-16); Aspartate Amino Transferase 22 U/L (17-59); Bilirubin,Total 0.6 mg/dL (0.2-1.3); Blood Urea Nitrogen 60 mg/dL (9-20); Calcium 7.2 mg/dL (8.4-10.2); Carbon Dioxide 25 mmol/L (22-30); Chloride 103 mmol/L (98-107); Estimated CRCL calculation 13 ml/min; Estimated Glomerular Filt Rate 8; Glucose 100 mg/dL (65-110); Potassium 4.4 mmol/L (3.4-5.0); Sodium 135 mmol/L (137-145)
[2023-08-15 07:56] LABS: Glucose Point of Care 101 mg/dl (65-105)
--- NOTE | 2023-08-15 08:28 | P.CDI_ITS ---
CDI Query Clarification Request CHF noted in the assessment and plan. Elevated BNP on 08/11/23 lab work. Patient has received IV Bumex. Fluid restriction. Patient receiving Coreg and hydralazine. 08/12/23 Echo notes EF 40-45%, Grade 2 diastolic dysfunction. Please specify type and acuity of heart failure if known. * Acute * Chronic * Acute on Chronic * Unknown * Systolic * Diastolic * Combined Systolic and Diastolic * Unknown <Catalina Driscoll RN - Last Filed: 08/15/23 08:33> Clarified Diagnosis Clarified Diagnosis: Acute on chronic Diastolic <Juanita Mackay APRN - Last Filed: 08/15/23 16:20>
--- NOTE | 2023-08-15 08:48 | PC.NURSE ---
patient taken off unit to dialysis
--- NOTE | 2023-08-15 09:15 | P.PNNP_ITS ---
Progress Note: A&P Assessment and Plan (1) End stage renal disease: Code(s): N18.6 - End stage renal disease Status: Chronic Assessment and Plan: * due to biopsy proven diabetes and hypertension * contributing factors include vascular disease (CVA + hyperlipdemia) * outpatient testing demonstrated a normal ultrasound, nephrotic range proteinuria, and a negative serological profile * kidney disease/renal function has been slowly deteriorating in the last 6 - 7 months * now having issues with volume overload, difficult to control hypertension, and mild uremic symptoms * however, no critical electrolyte abnormalities * HD yesterday, today and tomorrow * outpatient dialysis being arranged (2) Chest pain: Code(s): R07.9 - Chest pain, unspecified Status: Acute Assessment and Plan: * resolved * patient not interested in stress testing * Echo results noted - diastolic dysfunction noted * continue supportive care (3) Hypertension: Qualifiers: Hypertension type: unspecified Qualified Code(s): I10 - Essential (primary) hypertension Code(s): I10 - Essential (primary) hypertension Status: Chronic Assessment and Plan: * better control * resumed on home medications * change amlodipine to lisinopril and titrate dosage as needed * use PRN IV medications for BP control * follow trend of hemodynamics (4) Anemia: Code(s): D64.9 - Anemia, unspecified Status: Chronic Assessment and Plan: * presumably due to advanced CKD * anemia studies with evidence of iron deficiency * IV venofer with dialysis * Epogen with HD when Hgb < 10 * follow trend of H/H (5) Diabetes mellitus with chronic kidney disease: Code(s): E11.22 - Type 2 diabetes mellitus with diabetic chronic kidney disease Status: Chronic Assessment and Plan: * follow accu-cheks * glycemic control per hospitalists . Would not be opposed to discharge tomorrow after dialysis treatment if outpatient dialysis location and schedule has been finalized. Will continue to follow. Subjective Date/time seen: 08/15/23 09:15 Interval history: Follow-up for chronic kidney disease with progression to end stage renal disease and intiation of hemodialysis. Tolerated placement of tunneled HD catheter as well as first dialysis treatment yesterday without any issues or problems; tolerating second dialysis treatment at the time of my visit (seen on HD at 9:05AM); no apparent distress noted; no issues overnight or earlier this morning. Exam Narrative: General: middle aged WD/WN male in NAD Heart: normal S1 and S2; no rub Lungs: decreased at the bases Abdomen: soft, nontender, nondistended, positive bowel sounds Extremities: no cyanosis or clubbing; 1+ edema Skin: warm and dry Objective Data Vital Signs Vital Signs: Vital Signs Temp Pulse Resp BP Pulse Ox O2 Del Method 08/15/23 09:15 62 147/70 H 08/15/23 09:00 63 145/84 H 08/15/23 08:47 66 151/84 H 08/15/23 08:45 97.9 F 60 16 132/76 08/15/23 05:25 97.5 F L 91 18 148/81 H 96 08/15/23 04:00 58 L 08/15/23 00:00 56 L 08/14/23 20:00 62 08/14/23 20:00 Room Air 08/14/23 20:20 96.6 F L 59 L 20 125/95 H 99 08/14/23 20:54 63
--- NOTE | 2023-08-15 09:15 | PM.PNNEP ---
Progress Note: A&P Assessment and Plan (1) End stage renal disease: Code(s): N18.6 - End stage renal disease Status: Chronic Assessment and Plan: due to biopsy proven diabetes and hypertension contributing factors include vascular disease (CVA + hyperlipdemia) outpatient testing demonstrated a normal ultrasound, nephrotic range proteinuria, and a negative serological profile kidney disease/renal function has been slowly deteriorating in the last 6 - 7 months now having issues with volume overload, difficult to control hypertension, and mild uremic symptoms however, no critical electrolyte abnormalities HD yesterday, today and tomorrow outpatient dialysis being arranged (2) Chest pain: Code(s): R07.9 - Chest pain, unspecified Status: Acute Assessment and Plan: resolved patient not interested in stress testing Echo results noted - diastolic dysfunction noted continue supportive care (3) Hypertension: Qualifiers: Hypertension type: unspecified Qualified Code(s): I10 - Essential (primary) hypertension Code(s): I10 - Essential (primary) hypertension Status: Chronic Assessment and Plan: better control resumed on home medications change amlodipine to lisinopril and titrate dosage as needed use PRN IV medications for BP control follow trend of hemodynamics (4) Anemia: Code(s): D64.9 - Anemia, unspecified Status: Chronic Assessment and Plan: presumably due to advanced CKD anemia studies with evidence of iron deficiency IV venofer with dialysis Epogen with HD when Hgb < 10 follow trend of H/H (5) Diabetes mellitus with chronic kidney disease: Code(s): E11.22 - Type 2 diabetes mellitus with diabetic chronic kidney disease Status: Chronic Assessment and Plan: follow accu-cheks glycemic control per hospitalists . Would not be opposed to discharge tomorrow after dialysis treatment if outpatient dialysis location and schedule has been finalized. Will continue to follow. Subjective Date/time seen: 08/15/23 09:15 Interval history: Follow-up for chronic kidney disease with progression to end stage renal disease and intiation of hemodialysis. Tolerated placement of tunneled HD catheter as well as first dialysis treatment yesterday without any issues or problems; tolerating second dialysis treatment at the time of my visit (seen on HD at 9:05AM); no apparent distress noted; no issues overnight or earlier this morning. Exam Narrative: General: middle aged WD/WN male in NAD Heart: normal S1 and S2; no rub Lungs: decreased at the bases Abdomen: soft, nontender, nondistended, positive bowel sounds Extremities: no cyanosis or clubbing; 1+ edema Skin: warm and dry Objective Data Vital Signs Vital Signs: Vital Signs Temp Pulse Resp BP Pulse Ox O2 Del Method 08/15/23 09:15 62 147/70 H 08/15/23 09:00 63 145/84 H 08/15/23 08:47 66 151/84 H 08/15/23 08:45 97.9 F 60 16 132/76 08/15/23 05:25 97.5 F L 91 18 148/81 H 96 08/15/23 04:00 58 L 08/15/23 00:00 56 L 08/14/23 20:00 62 08/14/23 20:00 Room Air 08/14/23 20:20 96.6 F L 59 L 20 125/95 H 99 08/14/23 20:54 63 08/14/23 19:27 97.9 F 61 16 151/87 H 08/14/23 19:20 59 L 163/92 H 08/14/23 19:15 59 L 176/93 H 08/14/23 19:00 58 L 152/91 H 08/14/23 18:45 57 L 162/81 H 08/14/23 18:30 60 172/93 H 08/14/23 18:15 60 147/82 H 08/14/23 18:00 59 L 148/76 H 08/14/23 16:00 50 L 08/14/23 17:45 59 L 163/94 H 08/14/23 17:30 55 L 157/85 H 08/14/23 17:15 55 L 162/77 H 08/14/23 17:00 59 L 170/91 H 08/14/23 16:49 56 L 142/79 H 08/14/23 16:36 97.7 F 54 L 16 155/78 H 08/14/23 14:00 96.5 F L 55 L 16 138/78 100 08/14/23 13:42 Room Air 08/14/23 12:00
[2023-08-15] MEDS: IRON SUCROSE COMPLEX 200 MG in SODIUM CHLORIDE 0.9% IV 50 ML 220 MG IVPB (09:17)
[2023-08-15 11:05] LABS: Hepatitis B Core Ab Total Nonreactive (Nonreactive)
[2023-08-15 11:48] LABS: Glucose Point of Care 133 mg/dl (65-105)
[2023-08-15] MEDS: HEPARIN SODIUM 1,000 UNITS/ML VIAL 5000 UNITS (12:07)
[2023-08-15] MEDS: SODIUM CHLORIDE 0.9% IV 1,000 ML 999 ML IV CONT ×2 (12:41→12:43)
--- NOTE | 2023-08-15 12:59 | PC.NURSE ---
Patient returned to room from dialysis
[2023-08-15] MEDS: ATORVASTATIN 40 MG TABLET 80 MG PO (14:36)
[2023-08-15] MEDS: CLOPIDOGREL BISULFATE 75 MG TABLET PO (14:36)
[2023-08-15] MEDS: lisinopriL 20 MG TABLET PO (14:37)
[2023-08-15] MEDS: ASPIRIN 81 MG CHEWABLE TABLET PO (14:37)
--- NOTE | 2023-08-15 16:20 | P.PNIM_ITS ---
Progress Note: A&P Assessment and Plan (1) Chest pain: Code(s): R07.9 - Chest pain, unspecified Status: Acute Assessment and Plan: -continue telemetry monitoring -continue ASA 81 mg daily -echocardiogram 08/11, reveals moderate global hypokinesis EF 40/45%, grade 2 diastolic dysfunction, . Ventricular enlargement with moderate eccentric left ventricular hypertrophy -continue to encourage close follow-up with Cardiology. -presumably for his severe carotid disease he is on Plavix and atorvastatin and for hypertension Coreg. (2) Chronic kidney disease, stage 5: Code(s): N18.5 - Chronic kidney disease, stage 5 Status: Acute Assessment and Plan: History of creatinine 5.6 now continued to increase. His creatinine is 8.10 this admission. He does still produce urine -nephrology consulted. 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 Defer further management to Nephrology pending dialysis. -he is on Coreg and hydralazine. (4) Type 2 diabetes mellitus: Code(s): E11.9 - Type 2 diabetes mellitus without complications Status: Acute Assessment and Plan: -this has been diet controlled. Blood sugars controlled currently. -continue Accu-Cheks a.c. HS with hypoglycemia protocol and insulin sliding scale. (5) Anemia: Code(s): D64.9 - Anemia, unspecified Status: Chronic Assessment and Plan: -likely due to anemia of chronic disease. -hgb is 10.5 (6) Elevated d-dimer: Code(s): R79.89 - Other specified abnormal findings of blood chemistry Status: Acute Assessment and Plan: -only mildly elevated on admission. V/Q scan resulting indeterminate probability of PE. -he received 100 mg of Lovenox on admission. -does not want blood thinners ongoing. -mild acute thrombocytopenia, -continue to monitor. (7) Hypertensive urgency: Code(s): I16.0 - Hypertensive urgency Status: Acute Assessment and Plan: - BP, better controlled now 151/87 Continue Coreg 25 mg p.o. b.i.d., amlodipine 10 mg p.o. q.day, hydralazine 50 mg p.o. t.i.d. and any diuresis/dialysis per Nephrology. (8) Carotid artery disease: Code(s): I77.9 - Disorder of arteries and arterioles, unspecified Status: Acute Assessment and Plan: -unclear the follow-up/management he has had. Continue atorvastatin aspirin and Plavix. Should have close follow-up with vascular. (9) Cerebrovascular accident: Onset Date: 02/2019 Code(s): I63.9 - Cerebral infarction, unspecified Status: Acute (10) Tobacco abuse: Code(s): Z72.0 - Tobacco use Status: Acute Assessment and Plan: -counseling provided. -nicotine patch as needed. Plan 58-year-old male with a history of active tobacco abuse, hypertension, heart failure with preserved ejection fraction, diet-controlled type 2 diabetes mellitus, carotid artery disease and history of cerebrovascular accident, who presents with chest discomfort along with shortness of breath and lower extremity edema. Upon presentation in [facility] his blood pressure as high as 233/140 with the EKG demonstrating sinus rhythm
[2023-08-15 16:37] LABS: Glucose Point of Care 131 mg/dl (65-105)
[2023-08-15] MEDS: hydrALAZINE HCL 50 MG TABLET PO (17:41)
[2023-08-15 20:58] LABS: Glucose Point of Care 129 mg/dl (65-105)
[2023-08-15] MEDS: carvediloL 25 MG TABLET PO (21:18)
[2023-08-16] VITALS (27 sets, daily range): BP systolic 116–185; BP diastolic 66–103; PULSE 57–71; RESP 16–20; TEMP 36.4–37; O2SAT 97–100
[2023-08-16 06:26] LABS: Hematocrit 34.2 % (42.0-52.0); Hemoglobin 10.7 g/dL (14.0-18.0); Mean Corpuscular HGB Conc 31.3 g/dl (32-36); Mean Corpuscular Hemoglobin 27.7 pg (26-34); Mean Corpuscular Volume 88.6 fl (80-100); Mean Platelet Volume 12.8 fl (7.4-10.4); Platelet Count Result 124 k/mm3 (150-375); Red Blood Count 3.86 M/mm3 (4.6-6.20); Red Cell Distribution Width 14.2 % (11.5-14.5); White Blood Count 4.8 K/mm3 (4.5-10.0)
[2023-08-16 06:38] LABS: Alanine Aminotransferase 15 U/L (6-50); Albumin Level 3.5 g/dL (3.5-5.1); Alkaline Phosphatase 84 U/L (38-126); Anion Gap 8 mmol/L (8-16); Aspartate Amino Transferase 26 U/L (17-59); Bilirubin,Total 0.8 mg/dL (0.2-1.3); Blood Urea Nitrogen 46 mg/dL (9-20); Calcium 7.4 mg/dL (8.4-10.2); Carbon Dioxide 25 mmol/L (22-30); Chloride 104 mmol/L (98-107); Estimated CRCL calculation 15 ml/min; Estimated Glomerular Filt Rate 10; Glucose 96 mg/dL (65-110); Phosphorus 5.1 mg/dL (2.5-4.5); Potassium 4.4 mmol/L (3.4-5.0); Sodium 137 mmol/L (137-145)
[2023-08-16 08:12] LABS: Glucose Point of Care 91 mg/dl (65-105)
--- NOTE | 2023-08-16 09:20 | PC.NURSE ---
Patient taken to dialysis
--- NOTE | 2023-08-16 10:31 | PM.PNNEP ---
Progress Note: A&P Assessment and Plan (1) End stage renal disease: Code(s): N18.6 - End stage renal disease Status: Chronic Assessment and Plan: due to biopsy proven diabetes and hypertension contributing factors include vascular disease (CVA + hyperlipdemia) outpatient testing demonstrated a normal ultrasound, nephrotic range proteinuria, and a negative serological profile kidney disease/renal function has been slowly deteriorating in the last 6 - 7 months now having issues with volume overload, difficult to control hypertension, and mild uremic symptoms however, no critical electrolyte abnormalities HD day before yesterday, yesterday, and today outpatient dialysis being arranged - reportedly [facility] M/W/F at 2:00pm from what I am told... (2) Chest pain: Code(s): R07.9 - Chest pain, unspecified Status: Acute Assessment and Plan: resolved patient not interested in stress testing Echo results noted - diastolic dysfunction noted continue supportive care (3) Hypertension: Qualifiers: Hypertension type: unspecified Qualified Code(s): I10 - Essential (primary) hypertension Code(s): I10 - Essential (primary) hypertension Status: Chronic Assessment and Plan: better control resumed on home medications changed amlodipine to lisinopril and titrate dosage as needed use PRN IV medications for BP control follow trend of hemodynamics (4) Anemia: Code(s): D64.9 - Anemia, unspecified Status: Chronic Assessment and Plan: presumably due to advanced CKD anemia studies with evidence of iron deficiency IV venofer with dialysis Epogen with HD when Hgb < 10 follow trend of H/H (5) Diabetes mellitus with chronic kidney disease: Code(s): E11.22 - Type 2 diabetes mellitus with diabetic chronic kidney disease Status: Chronic Assessment and Plan: follow accu-cheks glycemic control per hospitalists . Would not be opposed to discharge today after dialysis treatment if outpatient dialysis location and schedule has been finalized (which it appears has been done). Will continue to follow. Subjective Date/time seen: 08/16/23 10:31 Interval history: Follow-up for chronic kidney disease with progression to end stage renal disease and intiation of hemodialysis. Tolerating dialysis treatment today at the time of my visit (seen on HD at 10:20AM); tolerated dialysis yesterday as well; no apparent distress or issues voiced; no events overnight or earlier this morning; appears to be doing reasonably well. Exam Narrative: General: middle aged WD/WN male in NAD Heart: normal S1 and S2; no rub Lungs: decreased at the bases Abdomen: soft, nontender, nondistended, positive bowel sounds Extremities: no cyanosis or clubbing; trace - 1+ edema Skin: warm and intact Objective Data Vital Signs Vital Signs: Vital Signs Temp Pulse Resp BP Pulse Ox O2 Del Method 08/16/23 05:10 98.4 F 57 L 20 116/72 97 08/16/23 04:00 63 08/16/23 00:00 59 L 08/15/23 20:00 66 08/15/23 20:00 Room Air 08/15/23 20:55 97.8 F 67 18 152/85 H 97 08/15/23 21:18 63 08/15/23 17:39 153/91 H 08/15/23 16:00 65 08/15/23 14:00 98.4 F 65 16 155/81 H 99 08/15/23 13:02 98.5 F 66 18 147/81 H 94 08/15/23 12:55 59 L 08/15/23 12:07 60 147/77 H 08/15/23 12:00 59 L 147/75 H 08/15/23 11:45 60 166/84 H 08/15/23 11:30 60 153/82 H 08/15/23 12:13 97.9 F 61 18 146/78 H Intake/Output Intake/Output: Intake & Output 08/13/23 08/14/23 08/15/23 08/16/23 23:59 23:59 23:59 23:59 Intake Total 4039 987 6410 240 Output Total 950 3430 7498 600 Balance 310 -1460 -827 -360 Meds/Results Medications: Active Medications Generic Name Dose Route Start Last Admin Trade Name Freq PRN Reason Stop Dose Admin
--- NOTE | 2023-08-16 10:31 | P.PNNP_ITS ---
Progress Note: A&P Assessment and Plan (1) End stage renal disease: Code(s): N18.6 - End stage renal disease Status: Chronic Assessment and Plan: * due to biopsy proven diabetes and hypertension * contributing factors include vascular disease (CVA + hyperlipdemia) * outpatient testing demonstrated a normal ultrasound, nephrotic range proteinuria, and a negative serological profile * kidney disease/renal function has been slowly deteriorating in the last 6 - 7 months * now having issues with volume overload, difficult to control hypertension, and mild uremic symptoms * however, no critical electrolyte abnormalities * HD day before yesterday, yesterday, and today * outpatient dialysis being arranged - reportedly Dewayne Belvue M/W/F at 2:00pm from what I am told... (2) Chest pain: Code(s): R07.9 - Chest pain, unspecified Status: Acute Assessment and Plan: * resolved * patient not interested in stress testing * Echo results noted - diastolic dysfunction noted * continue supportive care (3) Hypertension: Qualifiers: Hypertension type: unspecified Qualified Code(s): I10 - Essential (primary) hypertension Code(s): I10 - Essential (primary) hypertension Status: Chronic Assessment and Plan: * better control * resumed on home medications * changed amlodipine to lisinopril and titrate dosage as needed * use PRN IV medications for BP control * follow trend of hemodynamics (4) Anemia: Code(s): D64.9 - Anemia, unspecified Status: Chronic Assessment and Plan: * presumably due to advanced CKD * anemia studies with evidence of iron deficiency * IV venofer with dialysis * Epogen with HD when Hgb < 10 * follow trend of H/H (5) Diabetes mellitus with chronic kidney disease: Code(s): E11.22 - Type 2 diabetes mellitus with diabetic chronic kidney disease Status: Chronic Assessment and Plan: * follow accu-cheks * glycemic control per hospitalists . Would not be opposed to discharge today after dialysis treatment if outpatient dialysis location and schedule has been finalized (which it appears has been done). Will continue to follow. Subjective Date/time seen: 08/16/23 10:31 Interval history: Follow-up for chronic kidney disease with progression to end stage renal disease and intiation of hemodialysis. Tolerating dialysis treatment today at the time of my visit (seen on HD at 10:20AM); tolerated dialysis yesterday as well; no apparent distress or issues voiced; no events overnight or earlier this morning; appears to be doing reasonably well. Exam Narrative: General: middle aged WD/WN male in NAD Heart: normal S1 and S2; no rub Lungs: decreased at the bases Abdomen: soft, nontender, nondistended, positive bowel sounds Extremities: no cyanosis or clubbing; trace - 1+ edema Skin: warm and intact Objective Data Vital Signs Vital Signs: Vital Signs Temp Pulse Resp BP Pulse Ox O2 Del Method 08/16/23 05:10 98.4 F 57 L 20 116/72 97 08/16/23 04:00 63 08/16/23 00:00 59 L 08/15/23 20:00 66 08/15/23 20:00 Room Air 08/15/23 20:55 97.8 F 67 18 152/85 H 97 08/15/23 21:18 63 08/15/23 17:39 153/91 H 08/15/23 16:00 65 08/15/23 1
[2023-08-16] MEDS: IRON SUCROSE COMPLEX 200 MG in SODIUM CHLORIDE 0.9% IV 50 ML 220 MG IVPB (11:12)
[2023-08-16 12:27] LABS: Glucose Point of Care 210 mg/dl (65-105)
--- NOTE | 2023-08-16 13:18 | PM.IMPN ---
Subjective Date/time seen: 08/16/23 13:18 Objective Data Vital Signs Vital Signs: Vital Signs - 24 hr 08/15/23 14:00 08/15/23 16:00 08/15/23 17:39 Temperature 98.4 F Pulse Rate 65 65 Respiratory Rate 16 Blood Pressure 155/81 H 153/91 H Pulse Oximetry 99 Oxygen Delivery 08/15/23 21:18 08/15/23 20:55 08/15/23 20:00 Temperature 97.8 F Pulse Rate 63 67 Respiratory Rate 18 Blood Pressure 152/85 H Pulse Oximetry 97 Oxygen Delivery Room Air 08/15/23 20:00 08/16/23 00:00 08/16/23 04:00 Temperature Pulse Rate 66 59 L 63 Respiratory Rate Blood Pressure Pulse Oximetry Oxygen Delivery 08/16/23 05:10 08/16/23 09:29 08/16/23 09:39 Temperature 98.4 F 97.8 F Pulse Rate 57 L 66 67 Respiratory Rate 20 18 Blood Pressure 116/72 148/74 H 158/79 H Pulse Oximetry 97 98 Oxygen Delivery 08/16/23 09:45 08/16/23 10:00 08/16/23 10:15 Temperature Pulse Rate 66 69 63 Respiratory Rate Blood Pressure 140/78 142/80 H 139/74 Pulse Oximetry Oxygen Delivery 08/16/23 10:30 08/16/23 10:45 08/16/23 11:00 Temperature Pulse Rate 64 63 60 Respiratory Rate Blood Pressure 154/86 H 144/81 H 137/69 Pulse Oximetry Oxygen Delivery 08/16/23 11:15 08/16/23 11:30 08/16/23 11:45 Temperature Pulse Rate 62 57 L 57 L Respiratory Rate Blood Pressure 154/83 H 154/77 H 149/79 H Pulse Oximetry Oxygen Delivery 08/16/23 12:00 08/16/23 12:15 08/16/23 12:30 Temperature Pulse Rate 63 63 65 Respiratory Rate Blood Pressure 166/92 H 173/95 H 185/101 H Pulse Oximetry Oxygen Delivery 08/16/23 12:45 08/16/23 08:00 08/16/23 12:00 Temperature Pulse Rate 67 64 66 Respiratory Rate Blood Pressure 185/103 H Pulse Oximetry Oxygen Delivery 08/16/23 09:00 Temperature Pulse Rate Respiratory Rate Blood Pressure Pulse Oximetry Oxygen Delivery Room Air Intake/Output Intake/Output: Intake & Output 02/28/24 02/29/24 03/01/24 03/02/24 23:59 23:59 23:59 23:59 Intake Total 9189 348 4172 240 Output Total 387 5202 8793 443 Balance 496 -4840 -827 -360 Meds/Results Medications: Active Medications Generic Name Dose Route Start Last Admin Trade Name Rikq PRN Reason Stop Dose Admin Acetaminophen 650 mg 08/11/23 14:02 Acetaminophen 325 Mg Tablet PO Q6H PRN Mild Pain (1-3) or Fever Aspirin 81 mg 08/12/23 08:00 08/15/23 14:37 Aspirin 81 Mg Chewable Tablet PO 81 mg DAILY@0800 LILIAN Administration Atorvastatin Calcium 80 mg 08/12/23 09:00 08/15/23 14:36 Atorvastatin 40 Mg Tablet PO 80 mg DAILY LILIAN Administration Bumetanide 2 mg 08/17/23 09:00 Bumetanide 1 Mg Tablet PO DAILY LILIAN Carvedilol 25 mg 08/11/23 22:40 08/15/23 21:18 Carvedilol 25 Mg Tablet PO 25 mg Q12HR LILIAN Administration Clopidogrel Bisulfate 75 mg 08/13/23 09:00 08/15/23 14:36 Clopidogrel Bisulfate 75 Mg Tablet PO 75 mg DAILY LILIAN Administration Dextrose 12.5 gm 08/11/23 22:37 Dextrose 50% 25 Gm/50 Ml Syringe IV PUSH PRN PRN Hypoglycemia Protocol Glucagon 1 mg 08/11/23 22:37 Glucagon For Inj 1 Mg Vial IM PRN PRN Hypoglycemia Protocol Glucose 15 gm 08/11/23 22:37 Glucose Oral Gel 15 Gm Of Glucse In 37.5 Gm Tube PO PRN PRN Hypoglycemia Protocol Hydralazine HCl 10 mg 08/11/23 14:01 08/11/23 23:28 Hydralazine Hcl 20 Mg/Ml Vial IV PUSH 10 mg Q6H PRN Administration SBP > 185 or DBP > 105 Hydralazine HCl 50 mg 08/15/23 17:00 08/15/23 17:41 Hydralazine Hcl 50 Mg Tablet PO 50 mg BID LILIAN Administration Dextrose 1,000 mls @ 100 mls/hr 08/11/23 22:37 Dextrose 5% 1,000 Ml IVPB PRN PRN Hypoglycemia Protocol Albumin Human 50 mls @ 999 mls/hr 08/15/23 05:43 Albutein IVPB 09/14/23 05:42 Q10M PRN HYPOTENSION Iron Sucrose 200 mg/ Sodium 60 mls @ 220 mls/hr 03
--- NOTE | 2023-08-16 14:05 | PC.NURSE ---
patient returned to room from dialysis treatment
[2023-08-16] MEDS: ASPIRIN 81 MG CHEWABLE TABLET PO (14:12)
[2023-08-16] MEDS: CLOPIDOGREL BISULFATE 75 MG TABLET PO (14:12)
[2023-08-16] MEDS: lisinopriL 20 MG TABLET PO (14:12)
[2023-08-16] MEDS: ATORVASTATIN 40 MG TABLET 80 MG PO (14:12)
[2023-08-16 14:15] LABS: Glucose Point of Care 156 mg/dl (65-105)
--- NOTE | 2023-08-16 15:42 | PM.DS ---
DS: Admitting Diagnosis Discharge Date 08/16/2023 Admitting Diagnosis End-stage renal disease DS: Discharge Diagnosis Discharge Diagnosis (1) End stage renal disease: Code(s): N18.6 - End stage renal disease Status: Chronic (2) Antiplatelet or antithrombotic long-term use: Code(s): Z79.02 - senior living (current) use of antithrombotics/antiplatelets Status: Acute (3) Tobacco abuse: Code(s): Z72.0 - Tobacco use Status: Acute (4) Anemia: Code(s): D64.9 - Anemia, unspecified Status: Chronic (5) Type 2 diabetes mellitus: Code(s): E11.9 - Type 2 diabetes mellitus without complications Status: Acute (6) End-stage renal disease needing dialysis: Code(s): N18.6 - End stage renal disease; Z99.2 - Dependence on renal dialysis Status: Acute (7) Benign hypertension with chronic kidney disease, stage V: Code(s): I12.0 - Hypertensive chronic kidney disease with stage 5 chronic kidney disease or end stage renal disease; N18.5 - Chronic kidney disease, stage 5 Status: Acute Plan -patient now requiring HD he has been accepted to [facility] in [place] for Friday/Friday/Friday chair at 2:00 p.m. -changed amlodipine to lisinopril DS: Summary Hospital Course Reason for hospitalization: 58-year-old male smoker with a history of CVA, HTN, heart failure with preserved ejection fraction, carotid artery disease diet-controlled type 2 diabetes not on insulin presented to the emergency department for evaluation of ongoing chest pain Hospital Course: Narrative: The patient provides the following history. He did not sleep well last night due to pretty constant chest discomfort which he has a difficult time describing. At times it felt as though his heart rate was pounding and other times it felt heavy. He has also noticed increasing shortness of breath with exertion and lower extremity edema. Due to ongoing symptoms he came in today for evaluation. He denies syncope, near syncope, sweats, exertional chest pain, pleuritic pain, cough, sore throat, nausea, vomiting, diarrhea, and dysuria. In the ED: Blood pressure was as high as 233/140. EKG showed sinus rhythm with PVCs and changes consistent with LVH. Initial troponin was 0.056 and proBNP was greater than 30,000. BUN and creatinine were 72 and 7.90 respectively; creatinine over the last year has ranged between 5.6 and 6.83. Chest x-ray showed central congestive changes.? V/Q scan was intermediate probability for pulmonary embolism. He received 40 mg IV furosemide, 10 mg IV hydralazine, 1 in nitroglycerin paste, 324 mg aspirin, and he is being admitted in this setting for further workup. At the time my evaluation he has no current complaints and denies having chest discomfort and resting shortness of breath. Interval history: 58-year-old male with a history of active tobacco abuse, hypertension, heart failure with preserved ejection fraction, diet-controlled type 2 diabetes mellitus, carotid artery disease and history of cerebrovascular accident, who presents with chest discomfort along with shortness of breath and lower extremity edema.? Upon presentation in [facility] his blood pressure as high as 233/140 with the EKG demonstrating sinus rhythm with changes consistent with LVH, elevated troponin at 0.056, proBNP greater than 30,000, acute renal failure.? V/Q scan demonstrated intermediate probability for PE, he received IV Lasix IV hydralazine nitroglycerin paste 325 mg of aspirin and Lovenox 100 mg.? Admitted on 08/11 for further workup of multiple issues. Interval Hx: 08/14/23? 1130 No apparent distress noted at the the time of my visit but states that he just does not feel well but unable to elaborate much more than that; reasonable urine output in response to diuretic therapy but at the expense at what renal function he has left; no events overnight or earlier this morning. 08/14:??Patient seen s/p:? 2nd dialysis he denies any event
[2023-08-16 16:55] LABS: Glucose Point of Care 110 mg/dl (65-105)
--- NOTE | 2023-08-16 17:00 | PC.NURSE ---
Dr. Goodson came to bedside, assessed tunneled cath, and changed dressing. Applied 4x4 and tegaderm. Provider would like us to hold pressure until bleeding stops and apply same dressing if bleeding begins again
[2023-08-16] MEDS: hydrALAZINE HCL 50 MG TABLET PO (18:17)
[2023-08-16] MEDS: carvediloL 25 MG TABLET PO (20:30)
[2023-08-16 21:35] LABS: Glucose Point of Care 133 mg/dl (65-105)
[2023-08-17] VITALS (7 sets, daily range): BP systolic 125–142; BP diastolic 63–66; PULSE 60–80; RESP 16–20; TEMP 36.5; O2SAT 93
[2023-08-17 08:12] LABS: Glucose Point of Care 95 mg/dl (65-105)
[2023-08-17] MEDS: carvediloL 25 MG TABLET PO (10:12)
[2023-08-17] MEDS: BUMETANIDE 1 MG TABLET 2 MG PO (10:12)
[2023-08-17] MEDS: ASPIRIN 81 MG CHEWABLE TABLET PO (10:12)
[2023-08-17] MEDS: ATORVASTATIN 40 MG TABLET 80 MG PO (10:12)
[2023-08-17] MEDS: CLOPIDOGREL BISULFATE 75 MG TABLET PO (10:13)
[2023-08-17] MEDS: hydrALAZINE HCL 50 MG TABLET PO (10:13)
[2023-08-17] MEDS: lisinopriL 20 MG TABLET PO (10:13)
--- NOTE | 2023-08-17 10:39 | PM.IMPN ---
Subjective Date/time seen: 08/17/23 10:39 Objective Data Vital Signs Vital Signs: Vital Signs - 24 hr 08/16/23 10:45 08/16/23 11:00 08/16/23 11:15 Temperature Pulse Rate 63 60 62 Respiratory Rate Blood Pressure 144/81 H 137/69 154/83 H Pulse Oximetry Oxygen Delivery 08/16/23 11:30 08/16/23 11:45 08/16/23 12:00 Temperature Pulse Rate 57 L 57 L 63 Respiratory Rate Blood Pressure 154/77 H 149/79 H 166/92 H Pulse Oximetry Oxygen Delivery 08/16/23 12:15 08/16/23 12:30 08/16/23 12:45 Temperature Pulse Rate 63 65 67 Respiratory Rate Blood Pressure 173/95 H 185/101 H 185/103 H Pulse Oximetry Oxygen Delivery 08/16/23 13:00 08/16/23 13:12 08/16/23 12:00 Temperature Pulse Rate 62 63 66 Respiratory Rate Blood Pressure 165/93 H 171/96 H Pulse Oximetry Oxygen Delivery 08/16/23 14:10 08/16/23 13:26 08/16/23 16:00 Temperature 98.2 F 98 F Pulse Rate 66 64 66 Respiratory Rate 16 16 Blood Pressure 166/85 H 155/87 H Pulse Oximetry 100 99 Oxygen Delivery 08/16/23 18:16 08/16/23 20:30 08/16/23 20:30 Temperature 97.5 F L Pulse Rate 70 71 Respiratory Rate 20 Blood Pressure 147/83 H 160/66 H Pulse Oximetry 98 Oxygen Delivery 08/16/23 20:00 08/16/23 20:00 08/17/23 00:00 Temperature Pulse Rate 69 65 Respiratory Rate Blood Pressure Pulse Oximetry Oxygen Delivery Room Air 08/17/23 04:00 08/17/23 04:30 08/17/23 10:11 Temperature 97.7 F Pulse Rate 60 65 72 Respiratory Rate 20 16 Blood Pressure 125/63 142/66 H Pulse Oximetry 93 Oxygen Delivery 08/17/23 10:12 Temperature Pulse Rate 80 Respiratory Rate Blood Pressure Pulse Oximetry Oxygen Delivery Intake/Output Intake/Output: Intake & Output 08/14/23 08/15/23 08/16/23 08/17/23 23:59 23:59 23:59 23:59 Intake Total 590 1648 460 286 Output Total 2050 2475 2950 550 Balance -1460 -827 -2490 -264 Meds/Results Medications: Active Medications Generic Name Dose Route Start Last Admin Trade Name Adrianne PRN Reason Stop Dose Admin Acetaminophen 650 mg 08/11/23 14:02 Acetaminophen 325 Mg Tablet PO Q6H PRN Mild Pain (1-3) or Fever Aspirin 81 mg 08/12/23 08:00 08/17/23 10:12 Aspirin 81 Mg Chewable Tablet PO 81 mg DAILY@0800 LILIAN Administration Atorvastatin Calcium 80 mg 08/12/23 09:00 08/17/23 10:12 Atorvastatin 40 Mg Tablet PO 80 mg DAILY LILIAN Administration Bumetanide 2 mg 08/17/23 09:00 08/17/23 10:12 Bumetanide 1 Mg Tablet PO 2 mg DAILY LILIAN Administration Carvedilol 25 mg 08/11/23 22:40 08/17/23 10:12 Carvedilol 25 Mg Tablet PO 25 mg Q12HR LILIAN Administration Clopidogrel Bisulfate 75 mg 08/13/23 09:00 08/17/23 10:13 Clopidogrel Bisulfate 75 Mg Tablet PO 75 mg DAILY LILIAN Administration Dextrose 12.5 gm 08/11/23 22:37 Dextrose 50% 25 Gm/50 Ml Syringe IV PUSH PRN PRN Hypoglycemia Protocol Glucagon 1 mg 08/11/23 22:37 Glucagon For Inj 1 Mg Vial IM PRN PRN Hypoglycemia Protocol Glucose 15 gm 08/11/23 22:37 Glucose Oral Gel 15 Gm Of Glucse In 37.5 Gm Tube PO PRN PRN Hypoglycemia Protocol Hydralazine HCl 10 mg 08/11/23 14:01 08/11/23 23:28 Hydralazine Hcl 20 Mg/Ml Vial IV PUSH 10 mg Q6H PRN Administration SBP > 185 or DBP > 105 Hydralazine HCl 50 mg 08/15/23 17:00 08/17/23 10:13 Hydralazine Hcl 50 Mg Tablet PO 50 mg BID LILIAN Administration Dextrose 1,000 mls @ 100 mls/hr 08/11/23 22:37 Dextrose 5% 1,000 Ml IVPB PRN PRN Hypoglycemia Protocol Albumin Human 50 mls @ 999 mls/hr 08/15/23 05:43 Albutein IVPB 09/14/23 05:42 Q10M PRN HYPOTENSION Insulin Aspart 2 - 5 units 08/12/23 08:00 08/17/23 10:06 Insulin Aspart (*Bkc) 100 Units/Ml SUB-Q Not Given TIDWM LILIAN Protocol Insulin Aspart 1 - 2 units 08/12/23 21:00 08/16/23 2
--- NOTE | 2023-08-17 10:40 | P.DS_ITS ---
DS: Summary Time Spent with Patient Time attestation: Total time spent providing and/or coordinating discharge services: DS: Data Data Completed and Pending Labs on day of discharge: Labs from last 24 hours 08/17/23 08/16/23 08/16/23 07:52 20:32 16:51 POC Capillary Glucose 95 133 H 110 H 08/16/23 08/16/23 14:11 12:25 POC Capillary Glucose 156 H 210 H Discharge Plan Discharge Attending physician on discharge: Juanita Mackay Consulting providers: Sharon Gonzalez; Florecita Du Discharging Clinician: Juanita Mackay Anticipated Discharge Date/Time: 08/16/23 16:08 Patient Disposition: Home, Self-Care Activity: no shower Diet: as tolerated and renal Discharge Instructions: You have been accepted to start dialysis at [facility], please arrive at 1:00 p.m. on Friday08/18/2023 for new intake. Please follow up closely with your primary care provider within one week after discharge. 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 -If you experience sudden chest pain, fever>100.9, chills, nausea or vomiting, please return to the emergency room or call 911 in the event of an emergency. Thank you for allowing [facility] Staff to care for you. Your Health is Our mission Juanita Mackay NP Hospitalist Nurse Practitioner? Patient Instructions: Antibiotic Form, Suicide Prevention (GEN) Stand Alone Forms: General Discharge Information Follow-up/Referrals: Vincenzo,Schuyler Motta MD [Primary Care Provider] - Sharon Gonzalez MD [Physician] - Discharge Medications: Continued atorvastatin 80 mg tablet 80 mg PO DAILY carvedilol 25 mg tablet 25 mg PO BID clopidogrel 75 mg tablet 75 mg PO DAILY amlodipine 10 mg tablet 10 mg PO DAILY hydralazine 50 mg tablet 50 mg PO TID Date of admission: 08/12/23 10:46 Primary Care Provider: VincenzoSchuyler Admitting Provider: Tam Barrett Attending physician on admission: Tam Barrett Condition: Improved
--- NOTE | 2023-08-17 10:41 | PM.DS ---
DS: Admitting Diagnosis Discharge Date 08/17/2023 Admitting Diagnosis Chest pain GURJIT DS: Discharge Diagnosis Discharge Diagnosis (1) End-stage renal disease needing dialysis: Code(s): N18.6 - End stage renal disease; Z99.2 - Dependence on renal dialysis Status: Acute (2) Antiplatelet or antithrombotic long-term use: Code(s): Z79.02 - MCC (current) use of antithrombotics/antiplatelets Status: Acute (3) Tobacco abuse: Code(s): Z72.0 - Tobacco use Status: Acute (4) Hyperlipidemia: Code(s): E78.5 - Hyperlipidemia, unspecified Status: Acute (5) Acute kidney injury superimposed on chronic kidney disease: Code(s): N17.9 - Acute kidney failure, unspecified; N18.9 - Chronic kidney disease, unspecified Status: Acute (6) Hypertension: Qualifiers: Hypertension type: unspecified Qualified Code(s): I10 - Essential (primary) hypertension Code(s): I10 - Essential (primary) hypertension Status: Chronic (7) Anxiety: Code(s): F41.9 - Anxiety disorder, unspecified Status: Acute DS: Summary Hospital Course Reason for hospitalization: 58-year-old male smoker with a history of CVA, HTN, heart failure with preserved ejection fraction, carotid artery disease diet-controlled type 2 diabetes not on insulin presented to the emergency department for evaluation of ongoing chest russell Hospital Course: Narrative: ?The patient provides the following history. He did not sleep well last night due to pretty constant chest discomfort which he has a difficult time describing. At times it felt as though his heart rate was pounding and other times it felt heavy. He has also noticed increasing shortness of breath with exertion and lower extremity edema. Due to ongoing symptoms he came in today for evaluation. He denies syncope, near syncope, sweats, exertional chest pain, pleuritic pain, cough, sore throat, nausea, vomiting, diarrhea, and dysuria. In the ED: Blood pressure was as high as 233/140. EKG showed sinus rhythm with PVCs and changes consistent with LVH. Initial troponin was 0.056 and proBNP was greater than 30,000. BUN and creatinine were 72 and 7.90 respectively; creatinine over the last year has ranged between 5.6 and 6.83. Chest x-ray showed central congestive changes.? V/Q scan was intermediate probability for pulmonary embolism. He received 40 mg IV furosemide, 10 mg IV hydralazine, 1 in nitroglycerin paste, 324 mg aspirin, and he is being admitted in this setting for further workup. At the time my evaluation he has no current complaints and denies having chest discomfort and resting shortness of breath. Interval history: 58-year-old male with a history of active tobacco abuse, hypertension, heart failure with preserved ejection fraction, diet-controlled type 2 diabetes mellitus, carotid artery disease and history of cerebrovascular accident, who presents with chest discomfort along with shortness of breath and lower extremity edema.? Upon presentation in [facility] his blood pressure as high as 233/140 with the EKG demonstrating sinus rhythm with changes consistent with LVH, elevated troponin at 0.056, proBNP greater than 30,000, acute renal failure.? V/Q scan demonstrated intermediate probability for PE, he received IV Lasix IV hydralazine nitroglycerin paste 325 mg of aspirin and Lovenox 100 mg.? Admitted on 08/11 for further workup of multiple issues. Interval Hx: 08/14/23? 1130 No apparent distress noted at the the time of my visit but states that he just does not feel well but unable to elaborate much more than that; reasonable urine output in response to diuretic therapy but at the expense at what renal function he has left; no events overnight or earlier this morning. 08/14:??Patient seen s/p:? 2nd dialysis he denies any events during his HD session, UF 2000 mL.? Plan is to have patient have HD session in the a.m. if outside dialysis has been set at patient may
--- NOTE | 2023-08-17 11:06 | P.PNNP_ITS ---
Progress Note: A&P Assessment and Plan (1) End stage renal disease: Code(s): N18.6 - End stage renal disease Status: Chronic Assessment and Plan: * due to biopsy proven diabetes and hypertension * contributing factors include vascular disease (CVA + hyperlipdemia) * outpatient testing demonstrated a normal ultrasound, nephrotic range proteinuria, and a negative serological profile * kidney disease/renal function has been slowly deteriorating in the last 6 - 7 months * now having issues with volume overload, difficult to control hypertension, and mild uremic symptoms * however, no critical electrolyte abnormalities * HD x3 days in a row...plan next HD session tomorrow * outpatient dialysis being arranged - reportedly [facility] M/W/F at 2:00pm from what I am told... (2) Chest pain: Code(s): R07.9 - Chest pain, unspecified Status: Acute Assessment and Plan: * resolved * patient not interested in stress testing * Echo results noted - diastolic dysfunction noted * continue supportive care (3) Hypertension: Qualifiers: Hypertension type: unspecified Qualified Code(s): I10 - Essential (primary) hypertension Code(s): I10 - Essential (primary) hypertension Status: Chronic Assessment and Plan: * better control * resumed on home medications * changed amlodipine to lisinopril and titrate dosage as needed * use PRN IV medications for BP control * follow trend of hemodynamics (4) Anemia: Code(s): D64.9 - Anemia, unspecified Status: Chronic Assessment and Plan: * presumably due to advanced CKD * anemia studies with evidence of iron deficiency * IV venofer with dialysis * Epogen with HD when Hgb < 10 * follow trend of H/H (5) Diabetes mellitus with chronic kidney disease: Code(s): E11.22 - Type 2 diabetes mellitus with diabetic chronic kidney disease Status: Chronic Assessment and Plan: * follow accu-cheks * glycemic control per hospitalists Okay for discharge today from renal perspective - I will follow-up with patient at his outpatient dialysis unit. Will continue to follow. Subjective Date/time seen: 08/17/23 11:06 Interval history: Follow-up for chronic kidney disease with progression to end stage renal disease and intiation of hemodialysis. Tolerated dialysis treatment yesterday without any issue or problems; nursing persistent bleeding/oozing from HD catheter exit site despite conservative interventions; discharge held yesterday due to this issue and Surgery called to evaluate -- with interventions to date, bleeding for HD catheter has stopped. Exam Narrative: General: middle aged WD/WN male in NAD Heart: normal S1 and S2; no rub Lungs: decreased at the bases Abdomen: soft, nontender, nondistended, positive bowel sounds Extremities: no cyanosis or clubbing; trace - 1+ edema Skin: no rash or nodules Objective Data Vital Signs Vital Signs: Vital Signs Temp Pulse Resp BP Pulse Ox O2 Del Method 08/17/23 10:12 80 08/17/23 10:11 72 16 142/66 H 08/17/23 04:30 97.7 F 65 20 125/63 93 08/17/23 04:00 60 08/17/23 00:00 65 08/16/23 20:00 69 08/16/23 20:00 Room Air 08/16/23 20:30 97.5 F L 71 20 160/66 H 98 08/16/23 20:30 70
--- NOTE | 2023-08-17 11:06 | PM.PNNEP ---
Progress Note: A&P Assessment and Plan (1) End stage renal disease: Code(s): N18.6 - End stage renal disease Status: Chronic Assessment and Plan: due to biopsy proven diabetes and hypertension contributing factors include vascular disease (CVA + hyperlipdemia) outpatient testing demonstrated a normal ultrasound, nephrotic range proteinuria, and a negative serological profile kidney disease/renal function has been slowly deteriorating in the last 6 - 7 months now having issues with volume overload, difficult to control hypertension, and mild uremic symptoms however, no critical electrolyte abnormalities HD x3 days in a row...plan next HD session tomorrow outpatient dialysis being arranged - reportedly [facility] M/W/F at 2:00pm from what I am told... (2) Chest pain: Code(s): R07.9 - Chest pain, unspecified Status: Acute Assessment and Plan: resolved patient not interested in stress testing Echo results noted - diastolic dysfunction noted continue supportive care (3) Hypertension: Qualifiers: Hypertension type: unspecified Qualified Code(s): I10 - Essential (primary) hypertension Code(s): I10 - Essential (primary) hypertension Status: Chronic Assessment and Plan: better control resumed on home medications changed amlodipine to lisinopril and titrate dosage as needed use PRN IV medications for BP control follow trend of hemodynamics (4) Anemia: Code(s): D64.9 - Anemia, unspecified Status: Chronic Assessment and Plan: presumably due to advanced CKD anemia studies with evidence of iron deficiency IV venofer with dialysis Epogen with HD when Hgb < 10 follow trend of H/H (5) Diabetes mellitus with chronic kidney disease: Code(s): E11.22 - Type 2 diabetes mellitus with diabetic chronic kidney disease Status: Chronic Assessment and Plan: follow accu-cheks glycemic control per hospitalists Okay for discharge today from renal perspective - I will follow-up with patient at his outpatient dialysis unit. Will continue to follow. Subjective Date/time seen: 08/17/23 11:06 Interval history: Follow-up for chronic kidney disease with progression to end stage renal disease and intiation of hemodialysis. Tolerated dialysis treatment yesterday without any issue or problems; nursing persistent bleeding/oozing from HD catheter exit site despite conservative interventions; discharge held yesterday due to this issue and Surgery called to evaluate -- with interventions to date, bleeding for HD catheter has stopped. Exam Narrative: General: middle aged WD/WN male in NAD Heart: normal S1 and S2; no rub Lungs: decreased at the bases Abdomen: soft, nontender, nondistended, positive bowel sounds Extremities: no cyanosis or clubbing; trace - 1+ edema Skin: no rash or nodules Objective Data Vital Signs Vital Signs: Vital Signs Temp Pulse Resp BP Pulse Ox O2 Del Method 08/17/23 10:12 80 08/17/23 10:11 72 16 142/66 H 08/17/23 04:30 97.7 F 65 20 125/63 93 08/17/23 04:00 60 08/17/23 00:00 65 08/16/23 20:00 69 08/16/23 20:00 Room Air 08/16/23 20:30 97.5 F L 71 20 160/66 H 98 08/16/23 20:30 70 08/16/23 18:16 147/83 H 08/16/23 16:00 66 Intake/Output Intake/Output: Intake & Output 08/14/23 08/15/23 08/16/23 08/17/23 23:59 23:59 23:59 23:59 Intake Total 590 1648 460 526 Output Total 2050 3152 4823 550 [facility]1460 -[id number] -2490 -24 Meds/Results Medications: Active Medications Generic Name Dose Route Start Last Admin Trade Name Freq PRN Reason Stop Dose Admin Acetaminophen 650 mg 08/11/23 14:02 Acetaminophen 325 Mg Tablet PO Q6H PRN Mild Pain (1-3) or Fever Aspirin 81 mg 08/12/23 08:00 08/17/23 10:12 Aspirin 81 Mg Chewable Tablet PO 81 mg DAILY@
[2023-08-17 11:29] LABS: Hematocrit 31.9 % (42.0-52.0); Hemoglobin 9.8 g/dL (14.0-18.0)
[2023-08-17 12:33] LABS: Glucose Point of Care 218 mg/dl (65-105)
[2023-08-17 12:40] LABS: Glucose Point of Care 157 mg/dl (65-105)
--- NOTE | 2023-08-17 12:53 | PM.IMPN ---
Progress Note: A&P Assessment and Plan (1) End-stage renal disease needing dialysis: Code(s): N18.6 - End stage renal disease; Z99.2 - Dependence on renal dialysis Status: Acute Assessment and Plan: History of creatinine? 5.6 now continued to increase.? His creatinine is 8.10 this admission.? He does still produce urine -nephrology consulted.? 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 5.6 now continued to increase.? His creatinine is 8.10 this admission.? He does still produce urine -nephrology consulted.? 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 b.i.d., amlodipine 10 mg p.o. q.day, hydralazine 50 mg p.o. t.i.d. and any diuresis/dialysis per Nephrology. (6) Anxiety: Code(s): F41.9 - Anxiety disorder, unspecified Status: Acute (7) Chest pain: Code(s): R07.9 - Chest pain, unspecified Status: Acute Assessment and Plan: -continue telemetry monitoring -continue ASA 81 mg daily -echocardiogram 08/11, reveals moderate global hypokinesis EF 40/45%, grade 2 diastolic dysfunction,?. Ventricular enlargement with moderate eccentric left ventricular hypertrophy -continue to encourage close follow-up with Cardiology. -presumably for his severe carotid disease he is on Plavix and atorvastatin and for hypertension Coreg.? (8) Elevated d-dimer: Code(s): R79.89 - Other specified abnormal findings of blood chemistry Status: Acute Assessment and Plan: -only mildly elevated on admission.? V/Q scan resulting indeterminate probability of PE. -he received 100 mg of Lovenox on admission. -does not want blood thinners ongoing.? -mild acute thrombocytopenia, -continue to monitor. Plan -patient now requiring HD he has been accepted to [facility] in [place] for Friday/Friday/Friday chair at 2:00 p.m. -changed amlodipine to lisinopril Subjective Date/time seen: 08/16/23 12:53 Interval history: Interval history: 58-year-old male with a history of active tobacco abuse, hypertension, heart failure with preserved ejection fraction, diet-controlled type 2 diabetes mellitus, carotid artery disease and history of cerebrovascular accident, who presents with chest discomfort along with shortness of breath and lower extremity edema.? Upon presentation in [facility] his blood pressure as high as 233/140 with the EKG demonstrating sinus rhythm with changes consistent with LVH, elevated troponin at 0.056, proBNP greater than 30,000, acute renal failure.? V/Q scan demonstrated intermediate probability for PE, he received IV Lasix IV hydralazine nitroglycerin paste 325 mg of aspirin and Lovenox 100 mg.? Admitted on 08/11 for further workup of multiple issues. Interval Hx: 08/14/23? 1130 No apparent distress noted at the the time of my visit but states that he just does not feel well but unable to elaborate much more than that; reasonable urine output in response to diuretic therapy but at the expense at what renal function he has l
--- NOTE | 2023-08-17 15:45 | W.PM.PROC2 ---
Procedure Note - Detailed Date of Procedure 08/17/23 Pre-op Diagnosis Bleeding from exit site tunneled dialysis catheter Post-op Diagnosis Same Procedure Performed Suture control bleeding from dialysis catheter site Surgeon Kaveh Goodson MD Anesthesia Local (1% lidocaine with epinephrine) Indications I had been called yesterday afternoon to see the patient because after dialysis yesterday he was having bleeding from the exit site of the tunneled dialysis catheter. The dressing was removed and pressure was held directly on the site for about 15 minutes. When I looked at the site it seemed to have stopped bleeding. It was redressed. I was called then this morning that there had been more bleeding and some dressing changes. At this point I came to see the patient for more aggressive control of the bleeding. Findings Probably skin bleeding or tunneled bleeding from the site of the dialysis catheter. Persistent but not severe. Description of Procedure Patient's dialysis catheter dressing was removed. Using sterile technique I removed a large clot that was stuck to the catheter and the exit site of the catheter. There was still no significant bleeding but just a small amount. I then prepped the entire area with ChloraPrep. Sterile draping and sterile technique were used. I infiltrated local all around the exit site of the dialysis catheter I then used 4-0 nylon and created a pursestring suture that encircled the exit site of the catheter but remained in the skin. After tying down the pursestring suture, no further bleeding was seen. The exit site of the catheter was then redressed with sterile gauze and Tegaderm. Patient tolerated this procedure well. Estimated Blood Loss -1 Urine Output 350 Drains No Packing No Pathology None sent Complications No immediate complications Condition Stable Disposition No change [facility] Billing Surgery - Charge Forward: Surgery Billing (Suture control bleeding from tunneled dialysis catheter site)
== END 2023-08-17 14:50 | disposition home or self-care (01) | DRG 264 ==
LOC: ANHED 07:51 → ANHIMU 08:56 → ANH3MEDSUR 08-13 00:42
PROVIDERS: Emergency Medicine; General Practice; Internal Medicine Nephrology; Physician Assistant; Surgery; Admitting Provider Internal Medicine; Emergency Provider Emergency Medicine; PCP Internal Medicine; Visit Provider Nurse Practitioner
PROC: 0JH60XZ Insertion of Tunneled Vascular Access Device into Chest Subcutaneous Tissue and Fascia, Open Approach (ICD-10-PCS; CPT 36908; principal; 2023-08-14 10:30)
DX: I13.2 Hypertensive heart and chronic kidney disease with heart failure and with stage 5 chronic kidney disease, or end stage renal disease (principal); I50.33 Acute on chronic diastolic (congestive) heart failure; N18.5 Chronic kidney disease, stage 5; I16.0 Hypertensive urgency; I65.29 Occlusion and stenosis of unspecified carotid artery; E11.22 Type 2 diabetes mellitus with diabetic chronic kidney disease; E78.5 Hyperlipidemia, unspecified; D63.1 Anemia in chronic kidney disease; D50.9 Iron deficiency anemia, unspecified; R58 Hemorrhage, not elsewhere classified; R79.89 Other specified abnormal findings of blood chemistry; F41.9 Anxiety disorder, unspecified; F17.210 Nicotine dependence, cigarettes, uncomplicated; Z79.02 Long term (current) use of antithrombotics/antiplatelets; Z86.73 Personal history of transient ischemic attack (TIA), and cerebral infarction without residual deficits; Z86.010 Personal history of colon polyps
CPT/HCPCS: 36415; 71045; 77001; 78582; 80048; 80053; 82607; 82728; 82746; 82948; 83036; 83540; 83550; 83690; 83735; 83880; 84100; 84443; 84484; 85014; 85018; 85025; 85027; 85055; 85380; 85610; 85730; 86704; 86706; 87340; 87637; 93005; 93306; 93970; 96372; 96374; 96375; 96376; 97161; 97165; 99285; A9270; A9540; A9558; C1750; G0257; G0378; J0360; J0690; J1644; J1650; J1756; J1939; J1940; J2405; J3010; J7030; J7040

== ENCOUNTER 2023-12-16 14:36 | Emergency (ER) | payer BC, SELFPAY ==
--- NOTE | ~2023-12-16 | CT_ITS ---
EXAMINATION: CT brain wo con DATE: 12/16/2023 15:36 INDICATION: Fall. TECHNIQUE: Computed tomography (CT) of the head was performed without intravenous contrast. The mA wa s adjusted according to patient size. Iterative reconstruction technique was employed. The dose-lengt h product was 681.00 mGy-cm. COMPARISON: Head CT 02/18/2019 FINDINGS: There are scattered areas of low attenuation in the cerebral white matter. There is an old infarct in right frontal lobe. There are old infarcts in the abdelrahman and left thalamus. There is no intr acranial hemorrhage, acute infarction, or abnormal intracranial mass lesion. The ventricles are terry l in size. There is mild mucosal thickening in the paranasal sinuses. The orbits are normal. The mast oid air cells are normal. IMPRESSION: 1. Old infarcts involving the right frontal lobe, abdelrahman, and left thalamus. 2. Moderate nonspecific cerebral white matter disease, which likely represents chronic small vessel i schemic disease. Reviewed, dictated and finalized at location A. IMPRESSION: 1. Old infarcts involving the right frontal lobe, abdelrahman, and left thalamus. 2. Moderate nonspecific cerebral white matter disease, which likely represents chronic small vessel ischemic disease.
--- NOTE | ~2023-12-16 | XR_ITS ---
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 RESULT: Lines, tubes, and devices: None. Lungs and pleura: Clear. Cardiomediastinal silhouette: Stable. Other: Gas collection under the right hemidiaphragm. No acute osseous finding. IMPRESSION: No acute cardiopulmonary process. Pneumoperitoneum, consider CT of the abdomen and pelvis with contra st for further evaluation. Reviewed, dictated and finalized at location K. IMPRESSION: No acute cardiopulmonary process. Pneumoperitoneum, consider CT of the abdomen and pelvis with contrast for further evaluation.
[2023-12-16 14:51] VITALS: BP 105/50; PULSE 58; RESP 16; TEMP 36.9; O2SAT 100
[2023-12-16 15:17] VITALS: BP 111/73; PULSE 59; RESP 21; O2SAT 95
--- NOTE | 2023-12-16 15:23 | ED.GENADULT ---
HPI - General Adult General Chief complaint: Unspecified Stated complaint: fall, low blood pressure Time Seen by Provider: 12/16/23 15:16 Source: patient and family Limitations: no limitations History of Present Illness HPI narrative: 58 years old white male came to the emergency room by private car complaining of dizziness started this morning, history of peritoneal dialysis, [facility] and fell in the parking lot landed on his hand knees and head of front of his head,no loss of consciousness, denying any pain. Patient reports some nausea this morning with dizziness and vomiting once. Dizziness worse with standing and walking and doing activity, better if remaining still. Patient lives with his sons. History of CVA, hypertension, hyperlipidemia, on peritoneal dialysis for 1 month, used to be on hemodialysis for years. Related Data Home Medications Medication Instructions Recorded Confirmed amlodipine 10 mg tablet 10 mg PO DAILY 01/25/22 08/11/23 atorvastatin 80 mg tablet 80 mg PO DAILY 01/25/22 08/11/23 carvedilol 25 mg tablet 25 mg PO BID 01/25/22 08/11/23 clopidogrel 75 mg tablet 75 mg PO DAILY 01/25/22 08/11/23 hydralazine 50 mg tablet 50 mg PO TID 08/11/23 08/11/23 Allergies Allergy/AdvReac Type Severity Reaction Status Date / Time tree nut Allergy Intermediate Itching Verified 08/11/23 07:18 Penicillins Allergy Unknown Unknown Verified 08/11/23 07:18 Review of Systems Review of Systems: All systems reviewed & are unremarkable except as noted in HPI and below PMFSH Past Medical History Medical History Anxiety Carotid artery disease Severe stenosis of the intracranial internal carotid arteries on CT taken 03/05/2019. 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 Elevated d-dimer Heart failure with preserved ejection fraction Echo in November 2022 showed normal LV size and function with an EF of 50 to 55%, mildly increased left ventricular wall thickness, and grade 2 diastolic dysfunction. Hyperlipidemia Hypertension Tobacco abuse Type 2 diabetes mellitus Surgical History Surgical History History of cardiac catheterization (2019) History of colonoscopy with polypectomy Family History Family History Mother Carcinoma of colon Father Family history of diabetes mellitus in first degree relative Grandparent Diabetes mellitus Social History Social History Social History: Surrogate medical decision maker: Raina Yun, sibling. Code status: Do not resuscitate. Smoking packs per day: 0.5 Smoking cigarettes per day: 10.0 Years smoked: 40 Smoking pack-years: 20.00 Smoking status: Current every day smoker Tobacco type: cigarettes Alcohol intake: never Substance use: never Substance use type: does not use Do You Feel Safe in your Home?: Yes Lack of Transportation: YES Lack of Food: Never True Current Housing: I Have Housing Concerned About Future Housing: No Difficulty Paying Gas/Electric Bills: No Difficulty Paying for Meds: No Currently Unemployed: No Education: High School Diploma/GED Difficulty w/ Childcare or Family Care: No Living arrangements: with family Additional living arrangements comments: Lives in [place]. Has 4 children. Retired [employer]. Additional occupation/education comments: [employer]. Spiritual care concerns: No Exam Narrative: GENERAL APPEARANCE: WELL-DEVELOPED, WELL-NOURISHED, ILL LOOKING SKIN: NORMAL COLOR HEAD: NORMOCEPHALIC, NONTRAUMATIC EYES: CLEAR CONJUNCTIVA ENT: OROPHARYNX NORMAL, EARS NORMAL, NOSE NORMAL NECK: SUPPLE, NONTENDER CHEST AND
--- NOTE | 2023-12-16 15:24 | ECG_ITS ---
Test Date: 2023-12-16 15:49:57 Measurements Intervals [place] Rate: 56 P: -12 [place]: 186 QRS: -53 QRSD: 130 T: 120 QT: 445 QTc: 431 Interpretive Statements SINUS BRADYCARDIA LEFT ANTERIOR FASCICULAR BLOCK LEFT VENTRICULAR HYPERTROPHY AND ST-T CHANGE BASELINE ARTIFACT- I, II, AVR ABNORMAL ECG No previous ECG available for comparison Electronically Signed On 12-16-2023 16:44:50 CDT by Kishan Hightower D.O.
[2023-12-16 15:51] VITALS: BP 116/75; PULSE 55; RESP 18; O2SAT 98
[2023-12-16] MEDS: SODIUM CHLORIDE 0.9% IV 1,000 ML 999 ML IV CONT (15:52)
[2023-12-16 16:00] LABS: Basophils Percent Auto 0.3 % (0.2-1.2); Eosinophils Absolute Auto 0.2 K/mm3 (0-0.3); Eosinophils Percent Auto 2.1 % (0-4.4); Hemoglobin 12.5 g/dL (14.0-18.0); Immature Granulocyte Absolute 0.02 K/mm3 (0.00-0.031); Immature Granulocyte Percent A 0.3 % (0-0.5); Lymphocytes Percent Auto 15.4 % (18.3-44.2); Mean Corpuscular HGB Conc 34.7 g/dl (32-36); Mean Corpuscular Hemoglobin 30.3 pg (26-34); Mean Corpuscular Volume 87.4 fl (80-100); Mean Platelet Volume 10.8 fl (7.4-10.4); Monocytes Absolute Auto 0.5 K/mm3 (0.1-0.6); Monocytes Percent Auto 7.3 % (2.6-8.5); Neutrophils Absolute Auto 5.3 K/mm3 (1.3-6.7); Neutrophils Percent Auto 74.6 % (45.5-73.1); Platelet Count Result 203 k/mm3 (150-375); Red Blood Count 4.12 M/mm3 (4.6-6.20); Red Cell Distribution Width 12.8 % (11.5-14.5); White Blood Count 7.1 K/mm3 (4.5-10.0)
[2023-12-16 16:16] LABS: INR 1.1; Prothrombin Time 14.5 Seconds (11.1-14.7)
[2023-12-16 16:17] LABS: Partial Thromboplastin Time 31.3 Seconds (22.3-36.8)
[2023-12-16 16:21] LABS: Alanine Aminotransferase 24 U/L (6-50); Albumin Level 3.9 g/dL (3.5-5.1); Alkaline Phosphatase 76 U/L (38-126); Anion Gap 12 mmol/L (4-12); Aspartate Amino Transferase 26 U/L (17-59); Bilirubin,Total 0.8 mg/dL (0.2-1.3); Blood Urea Nitrogen 66 mg/dL (9-20); CRP < 0.5 mg/dL (<1.0); Calcium 8.1 mg/dL (8.4-10.2); Carbon Dioxide 23 mmol/L (22-30); Chloride 104 mmol/L (98-107); Estimated CRCL calculation 9 ml/min; Estimated Glomerular Filt Rate 6; Glucose 157 mg/dL (65-110); Potassium 3.4 mmol/L (3.4-5.0); Sodium 139 mmol/L (137-145)
[2023-12-16 16:52] LABS: Lactic Acid Reflex 1.8 mmol/L (0.7-2.0)
[2023-12-16 17:02] VITALS: BP 162/84; PULSE 52; RESP 14; O2SAT 98
--- NOTE | 2023-12-16 17:10 | PC.NURSE ---
pt attempting to give urine sample at this time
[2023-12-16 17:17] VITALS: BP 138/75; PULSE 56; RESP 16; O2SAT 95
[2023-12-16 17:20] LABS: Influenza A QL RT-PCR Negative (Negative); Influenza B QL RT-PCR Negative (Negative); RSV RNA, RT-PCR Negative (Negative); SARS-CoV-2 RNA PCR Negative (Negative)
== END 2023-12-16 18:40 | disposition home or self-care (01) ==
PROVIDERS: Emergency Provider Emergency Medicine; PCP Internal Medicine
DX: R42 Dizziness and giddiness (principal); S09.90XA Unspecified injury of head, initial encounter; I95.9 Hypotension, unspecified; Z20.822 Contact with and (suspected) exposure to COVID-19; E11.22 Type 2 diabetes mellitus with diabetic chronic kidney disease; I13.2 Hypertensive heart and chronic kidney disease with heart failure and with stage 5 chronic kidney disease, or end stage renal disease; N18.5 Chronic kidney disease, stage 5; I50.9 Heart failure, unspecified; Z99.2 Dependence on renal dialysis; I25.10 Atherosclerotic heart disease of native coronary artery without angina pectoris; E78.5 Hyperlipidemia, unspecified; F17.210 Nicotine dependence, cigarettes, uncomplicated; Z66 Do not resuscitate; Z86.73 Personal history of transient ischemic attack (TIA), and cerebral infarction without residual deficits; Z86.010 Personal history of colon polyps; Z79.899 Other long term (current) drug therapy; R90.82 White matter disease, unspecified; K66.8 Other specified disorders of peritoneum; R00.1 Bradycardia, unspecified; I44.4 Left anterior fascicular block; I51.7 Cardiomegaly; W18.30XA Fall on same level, unspecified, initial encounter
CPT/HCPCS: 36415; 70450; 71046; 80053; 83605; 85025; 85610; 85730; 86140; 87040; 87637; 93005; 96360; 99284; J7030

== ENCOUNTER 2024-11-26 11:19 | Inpatient (IN) | payer BC, SELFPAY ==
[2024-11-26] VITALS (8 sets, daily range): BP systolic 140–168; BP diastolic 64–88; PULSE 69–76; RESP 16–18; TEMP 36.6–36.8; O2SAT 92–97; BMI 28.0
--- NOTE | ~2024-11-26 | XR_ITS ---
MODIFIED ESOPHAGRAM HISTORY: Witnessed choking TECHNIQUE: Modified barium esophagram was performed on 11/30/2024. I administered fluoroscopy and perf ormed the exam with speech pathologist. Patient was seated for lateral fluoroscopic imaging for nicko stion of thin liquids, pudding, solids and quantified amounts, followed by thin liquids in uncontroll ed amounts. This was recorded on tape. A single fluoroscopic spot image was also recorded. The DAP fo r this procedure was 5.822 Gycm2. The amount of fluoroscopy time used during this procedure was 5.7 m inutes. FINDINGS: Oral stage: There was prolonged bolus holding. Otherwise adequate function. Pharyngeal stage: Reduced laryngeal elevation and tongue base retraction. There is both vallecular an d piriform sinus residue. There is laryngeal penetration with aspiration.. Cervical/esophageal stage: Adequate function. IMPRESSION: Oropharyngeal dysphagia with laryngeal penetration and aspiration. Please correlate with speech pathologist findings and specific feeding recommendations. Reviewed, dictated and finalized at location A. IMPRESSION: Oropharyngeal dysphagia with laryngeal penetration and aspiration. Please correlate with speech pathologist findings and specific feeding recomme ndations.
--- NOTE | ~2024-11-26 | US_ITS ---
EXAMINATION: US arterial duplex [facility] DATE: 11/26/2024 13:39 INDICATION: Gangrene to the left second toe TECHNIQUE: Multiple grayscale and Doppler ultrasound images of the arteries of the bilateral lower li mbs were obtained. COMPARISON: None FINDINGS: Triphasic waveforms with brisk systolic upstrokes at the right external iliac, common femoral, superf icial femoral, popliteal and posterior tibial arteries. Biphasic waveforms also with brisk systolic u pstrokes at the right profunda femoral and anterior tibial arteries and monophasic waveforms with ramone sk systolic upstrokes at the right peroneal and dorsalis pedis arteries. There are some scattered ath erosclerotic plaque along many of the visualized arteries without evident hemodynamically significant stenosis on grayscale imaging with abnormal focal increase in peak systolic velocities. Cardiac arrh ythmia is present. Triphasic waveforms with brisk systolic upstrokes at the left external iliac, common femoral and supe rficial femoral arteries, biphasic waveforms with press systolic upstrokes at the left profunda femor al artery and monophasic waveforms with brisk systolic upstrokes at the left peroneal, posterior tibi al, anterior tibial and dorsalis pedis arteries. Additional scattered nonhemodynamically significant atherosclerotic plaque in the arteries of the left lower limb. IMPRESSION: 1. No evident hemodynamically significant stenosis either by follow-up elevation of peak systolic garett ocities or by direct visualization grayscale imaging with brisk systolic upstrokes arteries of the bi lateral lower limbs. Reviewed, dictated and finalized at location A. IMPRESSION: 1. No evident hemodynamically significant stenosis either by follow-up elevatio n of peak systolic velocities or by direct visualization grayscale imaging with brisk systolic upstrokes arteries of the bilateral lower limbs.
--- NOTE | ~2024-11-26 | CT_ITS ---
EXAMINATION: CT brain wo con DATE: 11/30/2024 12:18 INDICATION: Possible stroke TECHNIQUE: Computed tomography (CT) of the head was performed without intravenous contrast. Sagittal and coronal reconstructions were performed. The mA was adjusted according to patient size. Iterative reconstruction technique was employed. The dose-length product was 605.33 mGy-cm. COMPARISON: head CT dated 12/16/2023 FINDINGS: Small region of parafalcine encephalomalacia along the medial right frontal lobe consistent with old infarct. Additional small old lacunar infarcts unchanged in the left thalamus and abdelrahman and new since the prior study and the right lentiform nucleus. No acute intracranial hemorrhage, acute infarction o r abnormal extra axial fluid collection. There is moderate scattered white matter hypoattenuation con sistent with chronic small vessel ischemic disease. Symmetric prominence of the sulci consistent with mild age-appropriate diffuse cerebral volume loss. No mass/mass effect. Mild mucosal thickening the bilateral maxillary sinuses. The orbits and mastoid air cells are normal. Intracranial calcified cere bral atherosclerosis is noted. IMPRESSION: 1. . Unchanged small old infarcts in the right frontal lobe, abdelrahman, right lentiform nucleus and left t halamus. No acute intracranial process. 2. Age-related changes including mild diffuse volume loss and moderate scattered white matter hypoatt enuation consistent with chronic small vessel ischemic disease. Reviewed, dictated and finalized at location A. IMPRESSION: 1. . Unchanged small old infarcts in the right frontal lobe, abdelrahman, right lentif orm nucleus and left thalamus. No acute intracranial process. 2. Age-related changes including mild diffuse volume loss and moderate scattere d white matter hypoattenuation consistent with chronic small vessel ischemic di sease.
--- NOTE | ~2024-11-26 | XR_ITS ---
MODIFIED ESOPHAGRAM HISTORY: Aspiration pneumonia TECHNIQUE: Modified barium esophagram was performed on 12/03/2024. I administered fluoroscopy and perf ormed the exam with speech pathologist. Patient was seated for lateral fluoroscopic imaging for nicko stion of thin liquids, pudding, solids and quantified amounts, followed by thin liquids in uncontroll ed amounts. This was recorded on tape. A single fluoroscopic spot image was also recorded. The DAP fo r this procedure was 1.522 Gycm2. The amount of fluoroscopy time used during this procedure was 2.5 m inutes. FINDINGS: Oral stage: Adequate function. Pharyngeal stage: Reduced laryngeal elevation and tongue base retraction. There is vallecular and pir iform sinus residue. There was laryngeal penetration with aspiration.. Cervical/esophageal stage: Adequate function. IMPRESSION: Pharyngeal dysphagia with laryngeal penetration and aspiration. Please correlate with sp eech pathologist findings and specific feeding recommendations. Reviewed, dictated and finalized at location A. IMPRESSION: Pharyngeal dysphagia with laryngeal penetration and aspiration. Pl ease correlate with speech pathologist findings and specific feeding recommenda tions.
--- NOTE | ~2024-11-26 | XR_ITS ---
XR foot LT min 3V 11/26/2024 12:58 Indication: Left foot pain. Second digit gangrene Procedure: 3 views left foot Comparison: No prior studies for comparison. Findings: There is soft tissue swelling of the second digit. The distal phalanx is not well visualize d due to positioning. There is atherosclerosis. There is a fracture involving the fifth proximal phal anx which appears to be extra-articular. Lisfranc joint intact. There is mild polyarticular osteoarth ritis. There are degenerative calcaneal enthesophytes. Impression: 1: Moderate soft tissue swelling of the second digit. The distal phalanx not well visualized. Cannot exclude osteomyelitis. 2: Extra-articular fracture left fifth proximal phalanx. Reviewed, dictated and finalized at location B. Impression: 1: Moderate soft tissue swelling of the second digit. The distal phalanx not we ll visualized. Cannot exclude osteomyelitis. 2: Extra-articular fracture left fifth proximal phalanx.
--- NOTE | ~2024-11-26 | XR_ITS ---
MODIFIED ESOPHAGRAM HISTORY: Aspiration TECHNIQUE: Modified barium esophagram was performed on 12/07/2024. I administered fluoroscopy and perf ormed the exam with speech pathologist. Patient was seated for lateral fluoroscopic imaging for nicko stion of thin liquids, pudding, solids and quantified amounts, followed by thin liquids in uncontroll ed amounts. This was recorded on tape. A single fluoroscopic spot image was also recorded. The DAP fo r this procedure was 2.103 Gycm2. The amount of fluoroscopy time used during this procedure was 2.7 m inutes. FINDINGS: Oral stage: Adequate function. Pharyngeal stage: Reduced laryngeal elevation and adduction. Reduced tongue base retraction. There is vallecular and piriform sinus residue. Laryngeal penetration with aspiration. Cervical/esophageal stage: Adequate function. IMPRESSION: Pharyngeal dysphagia with laryngeal penetration and aspiration. Please correlate with sp eech pathologist findings and specific feeding recommendations. Reviewed, dictated and finalized at location A. IMPRESSION: Pharyngeal dysphagia with laryngeal penetration and aspiration. Pl ease correlate with speech pathologist findings and specific feeding recommenda tions.
--- NOTE | ~2024-11-26 | CT_ITS ---
CLINICAL INDICATION: Nonhealing wounds in the left foot COMPARISON: Reference is made to an arterial duplex performed 11/26/2024. TECHNIQUE: Computed tomography angiography (CTA) of the abdominal aorta with runoff was performed wit h 100 mL Omnipaque-350 intravenous contrast timed to evaluate the abdominal aorta, mesenteric and per ipheral lower extremity vasculature. Coronal maximum intensity projection 3D-reconstructions were created by the technologist. The dose-length product (DLP) was 1156.16 mGy-cm. Automated exposure control and iterative reconstruction technique were employed. FINDINGS/OBSERVATIONS: Visualized lower thorax: Moderate right-sided pleural effusion, with adjacent compressive atelectasis. Multiple subcentimeter bilateral pulmonary nodules are identified, their multiplicity and distributio n is concerning for diffuse metastatic disease. The largest nodule measures 9 mm and is located within the right lower lobe (axial series, image 7). The heart is borderline enlarged without pericardial effusion. Moderate hiatal hernia is present. Liver: An indeterminate focus of mixed attenuation is identified within segment 4 of the liver, possibly rep resenting the fundus of the gallbladder, for which focused ultrasound may be performed for confirmati on. This abnormality measures 21 x 23 x 33 mm (anterior to posterior x medial to lateral x cranial to cau valentin dimension) compared with 17 x 12 x 19 mm (anterior to posterior x medial to lateral x cranial to caudal dimension) on 08/02/2020. The remainder of the liver otherwise enhances homogeneously and is not enlarged. Gallbladder and biliary system: The gallbladder is minimally distended, without calcified stones or surrounding inflammatory change. Pancreas: Fatty atrophy of the pancreas is identified. Spleen: Heterogeneous enhancement of the spleen, decreased within the lower third of the spleen, possibly sec ondary to flow dynamics. Kidneys: The bilateral kidneys enhance symmetrically. Cortical thinning is identified bilaterally without excretion visualized. No hydronephrosis is present. Adrenal glands: Unremarkable. Gastrointestinal tract: Oral contrast opacifies the colon. Appendix: Oral contrast opacifies the appendix which is of normal caliber (axial series, images 110 through 130 ). Vasculature: The visualized portion of the thoracic aorta is nonaneurysmal. The abdominal aorta is nonaneurysmal with densely calcified atherosclerotic disease and scattered mur al thrombus. The celiac origin is patent and demonstrates conventional anatomy. The superior mesenteric artery is also patent, with only mild atherosclerosis. The bilateral renal arteries are patent, with densely calcified origins along with high-grade stenosi s in their proximal third. The right common iliac artery is patent without calcified atherosclerosis. The right internal and external iliac arteries are patent, without aneurysmal dilatation or significa nt stenosis. The right common femoral artery is patent without aneurysmal dilatation or significant stenosis. The right superficial femoral artery and profunda femoral artery are both patent at their origins. The profunda femoral artery demonstrates diffuse disease. The right superficial femoral artery demonstrates diffuse disease along its course in the thigh witho ut aneurysmal dilatation or significant stenosis. The right popliteal artery is patent, of decreased caliber, and without aneurysmal dilatation or diss ection. Three-vessel runoff is identified within the right calf. Densely calcified atherosclerotic disease is identified within the anterior tibial artery with collat eralization in the distal calf. Single vessel runoff is identified into the right foot with densely calcified tibialis posterior. Dorsalis pedis artery occludes just below the distal tibia. The left common iliac artery is patent without calcified atherosclerosis. The left internal and external iliac arteries are patent, without aneurysmal dilatation. The left internal iliac artery is diffusely diseased and occluded beyond its exit in the pelvis. The left external iliac artery is patent. The left common femoral artery demonstrates 50% calcified stenosis at its origin, just before the prashant eoff of the left profunda femoral artery. The left superficial femoral artery demonstrates a 40% stenosis within the proximal thigh. And is the n diffusely diseased along its course through Mike's canal. The left popliteal artery demonstrates a high-grade stenosis at its origin, giving off collaterals in the proximal calf. Diminutive 2 vessel runoff is identified within the left calf, with single vessel runoff into the lef t foot (as the densely calcified and diminutive tibialis posterior). Lymph nodes: No pathologically enlarged or morphologically suspicious lymph nodes within the retroperitoneum, or t he root of the mesentery. Pelvic structures: The bladder is significantly distended, extending almost to the level of the umbilicus. The prostate gland is not enlarged. Body wall and musculoskeletal: Small fat-containing umbilical hernia. Age advanced degenerative disease within the lower thoracic and lumbosacral spines. IMPRESSION: Densely calcified atherosclerotic disease, left greater than right. The right superficial femoral artery demonstrates diffuse disease within the right thigh without a fo danika high-grade stenosis. Three-vessel runoff into the right calf with two-vessel runoff into the right foot. 50% stenosis of the left common femoral artery at its origin with a 40% stenosis of the left superfic ial femoral artery in the proximal thigh. High-grade stenosis of the left popliteal artery at its origin. Two-vessel runoff in the left calf and single diseased vessel runoff into the left foot. Perhaps improving the inflow (within the left common femoral, superficial femoral and popliteal arter ies) may improve the blood supply to the left foot. IN ADDITION: Moderate right-sided pleural effusion with adjacent compressive atelectasis. Multiple subcentimeter nodules within the visualized portions of the bilateral lung bases, for which metastatic disease is suspected. Dedicated CT examination of the chest may be performed for further e valuation. Indeterminate focus adjacent to the fundus of the gallbladder within segment 4 of the liver (as detai led above) increased in size from 2020 examination for which focused ultrasound examination is recomm ended for further characterization, as this may simply be an extension of the bladder fundus. Indeterminate enhancement of the spleen, likely secondary to flow differentials. Significant distention of the urinary bladder (although not with contrast excretion) for which decomp ression is recommended. Reviewed, dictated and finalized at location A. IMPRESSION: Densely calcified atherosclerotic disease, left greater than right. The right superficial femoral artery demonstrates diffuse disease within the ri ght thigh without a focal high-grade stenosis. Three-vessel runoff into the right calf with two-vessel runoff into the right f oot. 50% stenosis of the left common femoral artery at its origin with a 40% stenosi s of the left superficial femoral artery in the proximal thigh. High-grade stenosis of the left popliteal artery at its origin. Two-vessel runoff in the left calf and single diseased vessel runoff into the l eft foot. Perhaps improving the inflow (within the left common femoral, superficial femor al and popliteal arteries) may improve the blood supply to the left foot. IN ADDITION: Moderate right-sided pleural effusion with adjacent compressive atelectasis. Multiple subcentimeter nodules within the visualized portions of the bilateral lung bases, for which metastatic disease is suspected. Dedicated CT examination of the chest may be performed for further evaluation. Indeterminate focus adjacent to the fundus of the gallbladder within segment 4 of the liver (as detailed above) increased in size from 2020 examination for wh ich focused ultrasound examination is recommended for further characterization, as this may simply be an extension of the bladder fundus. Indeterminate enhancement of the spleen, likely secondary to flow differentials . Significant distention of the urinary bladder (although not with contrast excre tion) for which decompression is recommended.
--- NOTE | ~2024-11-26 | XR_ITS ---
EXAMINATION: XR chest 2V DATE: 11/30/2024 12:32 INDICATION: Possible aspiration pneumonia. Weakness. TECHNIQUE: frontal and lateral views of the chest were obtained. COMPARISON: Chest radiograph dated 12/16/2023 FINDINGS: Airspace opacities in the right mid and lower lung zones. Small right pleural effusion. Mild linear d iscoid atelectasis at the left lower lung zone. No pulmonary edema, pneumothorax or left-sided pleura l effusion. Heart size is normal. Calcified left hilar lymph nodes consistent with old granulomatous disease. There are some oral contrast material in the stomach and small bowel related to earlier laureen fied barium swallow study. IMPRESSION: 1. Opacities in the right mid and lower lung zones which could represent atelectasis, aspiration and/ or pneumonia. 2. Small right pleural effusion. Reviewed, dictated and finalized at location A. IMPRESSION: 1. Opacities in the right mid and lower lung zones which could represent atelec tasis, aspiration and/or pneumonia. 2. Small right pleural effusion.
--- NOTE | ~2024-11-26 | MR_ITS ---
EXAMINATION: MR brain/brain stem wo/w con DATE: 12/09/2024 13:56 INDICATION: Altered mental status. Dysphagia. TECHNIQUE: Magnetic resonance imaging (MRI) of the brain and brainstem was performed without and with 19 mL Multihance intravenous contrast. Sequences included sagittal and axial T1-weighted SE, axial d iffusion-weighted FS SE, axial 3D SWAN, axial T2-weighted FLAIR, and axial T2-weighted FSE. Postcontr ast axial and coronal T1-weighted SE was obtained. Apparent diffusion coefficient (ADC) maps were cre ated. COMPARISON: CT dated 11/30/2024 FINDINGS: There is a small focus of restricted diffusion at the posterior aspect of the occipital horn of the l eft lateral ventricle. This appears more likely intraventricular than periventricular, the latter whi ch be consistent with infarct. The former raises the possibility of echogenic ventriculitis. Equivoca l additional tiny focus of restricted diffusion at the dependent aspect of occipital horn of the cont ralateral right lateral ventricle. Small region of encephalomalacia along the medial right frontal lo be consistent with sequela of old infarct. No intracranial hemorrhage or abnormal intracranial mass l esion. There are scattered areas of nonspecific increased T2-weighted signal intensity in the deep an d periventricular cerebral white matter consistent with sequela of chronic small vessel ischemic dise ase. There is an additional line of increased T2 signal extending transversely across the abdelrahman which could represent additional sequela of chronic small vessel ischemic disease although pattern also le ses possibility of selected degeneration of the transverse pontine cerebellar tracks which can be see n in the setting of multiple system atrophy or spinocerebellar ataxia. There are no intraparenchymal signal abnormalities seen on the other pulse sequences. The ventricles are symmetric and normal in si ze. There are no abnormal extra-axial fluid collections. Flow voids are seen in the cerebral arteries on the T2-weighted sequences consistent with their expected patency. Visualized orbits and soft tiss ues are unremarkable. There are no areas of abnormal enhancement on the post contrast images. IMPRESSION: 1. Small focus of restricted diffusion at the dependent occipital horn of the left lateral ventricle, potentially additional tiny focus similar position on the right. Unclear where this is periventricul ar or intraventricular, the former consistent with acute infarction in the latter resulting concern f or echogenic ventriculitis. Correlate clinically for signs/symptoms of infection. Findings were discu ssed with Lissette Shepard, the nurse caring for the patient, at 2:42 PM. 2. 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 3. Scattered periventricular and deep white matter predominant T2 hyperintensity consistent with office electrician mango small vessel ischemic disease. There is also linear pattern of increased T2 signal extending vasquez sversely across the abdelrahman which could represent additional sequela of chronic small vessel ischemic di sease although dissipation also suggests possibility of selected degeneration of the transverse ponti ne cerebellar tracks which can be seen in the setting of multiple system atrophy or spinocerebellar a taxia. Reviewed, dictated and finalized at location A. IMPRESSION: 1. Small focus of restricted diffusion at the dependent occipital horn of the l eft lateral ventricle, potentially additional tiny focus similar position on th e right. Unclear where this is periventricular or intraventricular, the former consistent with acute infarction in the latter resulting concern for echogenic ventriculitis. Correlate clinically for signs/symptoms of infection. Findings w ere discussed with Lissette Shepard, the nurse caring for the patient, at 2:42 PM. 2. 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 3. Scattered periventricular and deep white matter predominant T2 hyperintensit y consistent with chronic small vessel ischemic disease. There is also linear p attern of increased T2 signal extending transversely across the abdelrahman which coul d represent additional sequela of chronic small vessel ischemic disease althoug h dissipation also suggests possibility of selected degeneration of the transve rse pontine cerebellar tracks which can be seen in the setting of multiple syst em atrophy or spinocerebellar ataxia.
--- NOTE | ~2024-11-26 | MR_ITS ---
MRI of the left foot Clinical history leukocytosis, soft tissue infection, recent second toe amputation TECHNIQUE: Axial T1-weighted, T2 fat-sat, T1 fat-sat images, sagittal T1-weighted and STIR images, an d coronal T1-weighted and T2 fat-sat images were performed. Following intravenous administration of 1 8 cc MultiHance gadolinium, T1-weighted fat-sat imaging was performed in the axial, coronal, and sagi ttal planes. FINDINGS: Status post transmetatarsal amputation of the second digit. Remaining osseous structures ar e intact. No significant bone marrow signal abnormality identified. No evidence for osteomyelitis. No fracture or significant bone marrow edema identified. Joint spaces are preserved throughout the visu alized mid and forefoot. No joint effusion. There is nonspecific diffuse edema/myositis the plantar musculature of the foot. Visualized plantar f ascia intact. There is mild dorsal subcutaneous soft tissue edema of the foot. There is an irregular, peripherally enhancing fluid collection at the second interspace region at the level of the proximal metatarsal shafts, measuring up to approximately 2.4 x 1.8 x 3.3 cm in maximal extent (series 11 abby ges 18-27, series 12 image 19). There is prominent susceptibility artifact at the operative bed at th e region of the second metatarsal head and dorsal soft tissues at this region, which could reflect ar tifact versus open soft tissue wound. IMPRESSION: Status post transmetatarsal amputation of the second digit. 2.4 x 1.8 x 3.3 cm peripherally enhancing fluid collection at the second interspace at the level the proximal metatarsal shafts is compatible with abscess. Diffuse myositis of the plantar musculature of the foot. No evidence for osteomyelitis or fracture. Susceptibility artifact at the operative bed and dorsal soft tissues at the second digit region could reflect artifact and/or open soft tissue wound. Correlate with physical exam. Reviewed, dictated and finalized at location . IMPRESSION: Status post transmetatarsal amputation of the second digit. 2.4 x 1.8 x 3.3 cm peripherally enhancing fluid collection at the second inters pace at the level the proximal metatarsal shafts is compatible with abscess. Diffuse myositis of the plantar musculature of the foot. No evidence for osteomyelitis or fracture. Susceptibility artifact at the operative bed and dorsal soft tissues at the sec ond digit region could reflect artifact and/or open soft tissue wound. Correlat e with physical exam.
--- OUTSIDE RECORDS SUMMARY | 2024-11-26 11:21 | XMS_ITS | Clinical Summary ---
[facility] Address [address] [place] [address] Care Team Providers Care Commercial Lease Administrator Name Role Phone Thomas White MD PhD Unavailable [phone] Yovanny Morris MD Primary Care Provider + Finesse Dewitt MD Unavailable [phone] Allergies Active Allergy Reactions Criticality Noted Date Comments Nuts Itching High 05/19/2019 Pecans and Walnuts cause mouth itching Penicillins Other (See comments) Low 02/18/2019 Unknown Medications atorvastatin (LIPITOR) 80 mg tabletIndicatio ns:hyperlipidem ia Take 1 tablet (80 mg total) by mouth daily 90 tablet 3 9 Active chlorthalidone 25 mg tablet Take 1 tablet (25 mg total) by mouth daily 1 Active escitalopram (LEXAPRO) 10 mg tablet Take 1 tablet (10 mg total) by mouth daily 1 Active spironolactone (ALDACTONE) 25 mg tablet Take 1 tablet (25 mg total) by mouth daily 90 tablet 3 1 06/15/20 30 Active Additional Information Patient not taking.Reported on 10/02/2023 carvediloL (COREG) 25 mg tablet TAKE 1 TABLET(25 MG) BY MOUTH TWICE DAILY 180 tablet 3 1 Active clopidogreL (PLAVIX) 75 mg tablet TAKE 1 TABLET(75 MG) BY MOUTH DAILY 90 tablet 1 1 Active Additional Information Patient taking differently: 75 mg oral Daily, Instructed to stop on 10/09 per cosmetic account coordinator, Reported on 10/02/2023 lisinopriL (PRINIVIL,ZESTR IL) 40 mg tablet TAKE 1 TABLET(40 MG) BY MOUTH DAILY 90 tablet 3 1 Active insulin glargine (LANTUS, SEMGLEE) 100 unit/mL vial for injection Inject 10 Units under the skin nightly 15 mL 2 Active Additional Information Patient not taking.Reported on 09/17/2023 NIFEdipine (PROCARDIA XL/ADALAT CC) 90 mg 24 hr tablet Take 1 tablet (90 mg total) by mouth daily 90 tablet 3 2 Active Additional Information Patient not taking.Reported on 10/02/2023 predniSONE (DELTASONE) 10 mg tablet Take 5 tabs (50mg) daily for 2 days, then take 4 tabs (40mg) daily for 2 days. Continue to decrease by 1 tab (10mg) every 2 days until gone. 30 tablet 3 Active Additional Information Patient not taking.Reported on 09/17/2023 azithromycin (ZITHROMAX) 250 mg tablet Take 2 tabs (500 mg) by mouth today, than 1 tab (250 mg) daily for 4 days. 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) 07/18/2020 Assessment & Plan (07/18/2020 2:45 PM HAND CIGAR MAKING SUPERVISOR): With proteinuria Restart Jardiance, 25 mg daily Lower Metformin , 500 mg daily Recheck BMP in 6 weeks Coronary artery disease of n ative artery of [place] heart with stable angina pectoris 06/05/2019 Hyperlipidemia associated with type 2 diabetes tawana mckenna 04/06/2019 Assessment & Plan (09/20/2021 1:49 PM CDT): Chronic, well controlled Low fat Low cholesterol diet Exercise Continue statin therapy Check lipid profile Assessment & Plan (07/18/2020 2:46 PM HAND CIGAR MAKING SUPERVISOR): Goal of treatment , LDL cholesterol less than 100 ( less than 70 in patients with history of heart attacks and / or strokes ) NonHDL cholesterol ( total cholesterol minus HDL cholesterol ) goal less than 130 ( less than 100 in patients with history of heart attacks and / or strokes ) Low cholesterol, low fat diet was discussed and advised. Daily exercise On statin therapy Assessment & Plan (05/06/2019 4:44 PM HAND CIGAR MAKING SUPERVISOR): Goal of treatment , LDL cholesterol less than 100 ( less than 70 in patients with history of heart attacks and / or strokes ) NonHDL cholesterol ( total cholesterol minus HDL cholesterol ) goal less than 130 ( less than 100 in patients with history of heart attacks and / or strokes ) Low cholesterol, low fat diet was discussed and advised. Daily exercise On statin therapy Start Vascepa for TG control Old cerebrovascular accident (CVA) without late effect 03/29/2019 Type 2 diabetes mellitus wit h hyperglycemia, with long-term current use of insulin 03/04/2019 Assessment & Plan (09/20/2021 1:48 PM CDT): Hba1c was Lab Results Component Value Date HGBA1C 6.0 09/20/2021 today, indicating adequate DM control Goal Hba1c and blood glucose explained Diet and exercise were advised Prevention and treatment of hyypoglcyemia were discussed with the patient Blood glucose monitoring : 1 x day Adjustment to medications: Continue Lantus and Metformin Assessment & Plan (07/18/2020 2:43 PM HAND CIGAR MAKING SUPERVISOR): Last hba1c 6.6 . Indicating adequate glycemic control 1800 calorie, consistent carb diet recommended. No more than 30-45 grams of carbs per meal recommended, as well as avoiding high concentrated sweet drinks . 25-45 min daily exercise, combining both aerobic and resistance exercise recommended. The need to monitor blood glucose was discussed. Prevention and treatment of hyypoglcyemia discussed. Assessment & Plan (05/06/2019 4:44 PM HAND CIGAR MAKING SUPERVISOR): Your Hba1c today was: Lab Results Component Value Date HGBA1C 7.5 % 05/06/2019 meaning a 3 month average sugar of : 164 Indicating inadequate DM control Your goal hba1c is under 7.0 to prevent salvage determiner diabetes complications ( eye , kidney and nerve damage ) . Your goal sugars are in the 90-130 range Exercise recommendations: It is recommended that you do daily aerobic ( walking, riding a bike, swimming ) and resistance exercises ( light weight lifting, resistance band stretching ) for at least 30 minutes , most days of the week. If you can not walk, chair exercises for 10-15 min a day would help tremendously. As little as 15-20 minutes exercise , in one or two sessions a day, is still very helpful to improve your diabetes control . Diet recommendations: Eat small portion meals, trying not to consume more than 1800 calories a day . Try to eat not more than than 2 servings of carbs ( starches ) wiith your meals. Avoid soft drinks, including regular sodas , fruit juices and sweetened tea. Drink water instead. Eat plenty of green and leafy vegetables, including salads. Medications: Take your medications regularly. Setting phone alarms can help . Keep your medication on the kitchen dinner table, by the bedside table or by the sink where they are visible to you. If you are taking insulin : the insulin that you are currently using does not need to be refrigerated. Keep it where you can see it . Monitor your sugar levels with finger sticks regularly and keep a log sheet or book. Bring your sugar meter and /or a log book or log sheet to every office visit. Stay on Lantus, 10 units daily Stay on Jardiance and Metformin Assessment & Plan (03/04/2019 11:35 AM CDT): Your last Hba1c was: Lab Results Component Value Date HGBA1C 12.0 (H) 02/19/2019 meaning a 3 month average sugar of : 314 Your goal hba1c is under 7.0 to prevent salvage determiner diabetes complications ( eye , kidney and nerve damage ) . Your goal sugars are in the 90-130 range Exercise recommendations: It is recommended that you do daily aerobic ( walking, riding a bike, swimming ) and resistance exercises ( light weight lifting, resistance band stretching ) for at least 30 minutes , most days of the week. If you can not walk, chair exercises for 10-15 min a day would help tremendously. As little as 15-20 minutes exercise , in one or two sessions a day, is still very helpful to improve your diabetes control . Diet recommendations: Eat small portion meals, trying not to consume more than 1800 calories a day . Try to eat not more than than 2 servings of carbs ( starches ) wiith your meals. Avoid soft drinks, including regular sodas , fruit juices and sweetened tea. Drink water instead. Eat plenty of green and leafy vegetables, including salads. Medications: Take your medications regularly. Setting phone alarms can help . Keep your medication on the kitchen dinner table, by the bedside table or by the sink where they are visible to you. If you are taking insulin : the insulin that you are currently using does not need to be refrigerated. Keep it where you can see it . Monitor your sugar levels with finger sticks regularly and keep a log sheet or book. Bring your sugar meter and /or a log book or log sheet to every office visit. Lower Lantus to 20 units at bedtime If sugars are persistently under 120 in the morning, cut another 5 units Start Jardiance, 10 mg daily Start Metformin, 500 mg with dinner; increase to 1000 mg in a week, if well tolerated. Cardiomyopathy 02/20/2019 CVA (cerebral vascular accident) 02/18/2019 Hypertension associated with diabetes 02/18/2019 Assessment & Plan (09/20/2021 1:48 PM CDT): Low salt diet Check BMP Check MA. Tobacco abuse 02/18/2019 Medical History Medical History Date Comments Hypertension Hyperlipidemia Type 2 diabetes mellitus (HCC) Stroke (HCC) CVA (cerebral vascular accident) (HCC) 9 no residual Hypertension associated with diabetes (HCC) 10/2018 Tobacco abuse 02/18/2019 Cardiomyopathy (HCC) 02/20/2019 Hyperlipidemia associated wi th type 2 diabetes mellitus (HCC) 04/06/2019 Chronic kidney disease stage V e nd stage Depression Family History Medical History Relation Name Comments Diabetes Father Heart disease Father Hypertension Father Colon cancer Mother Hypertension Sister Relation Name Status Comments Father Mother Sister Social History Tobacco Use Types Packs/Day Years Used Date Smoking Tobacco: Every Day Cigarettes 0.3 20 Smokeless Tobacco: Never Tobacco Cessation:Ready to Q uit: Not Asked; Counseling Given: Not Answered Alcohol Use Standard Drinks/Week Comments Not Currently 0 (1 standard drink = 0.6 oz pur e alcohol) AUDIT-C Answer Date Recorded Q1: How often do you have a drink containing alc ohol? Monthly or less 10/14/2023 Q2: How many drinks containi ng alcohol do you have on a typical day when you are drinking? 1 or 2 10/14/2023 Q3: How often do you have si x or more drinks on one occasion? Never 10/14/2023 PHQ-2 Answer Date Recorded PHQ-2 Total Score (If total score is 3 or more points, staff should administer the PHQ-9) 0 09/20/2021 Personal Safety Answer Date Recorded Have you ever been in or are you currently in a harmful physical or emotional relationship or is someone making you feel afraid or unsafe? Denies 10/14/2023 Sex and Gender Information Value Date Recorded Sex Assigned at Not on file Legal Sex Male 3:24 PM CDT Gender Identity Male 01/15/2022 7:17 AM CDT Sexual Orientation Straight 03/01/2019 7: 52 AM CDT Obstetrics History Last Filed Vital Signs Vital Sign Reading Time Taken Comments Blood Pressure 147/94 10/14/2023 10:55 AM CDT Pulse 69 10/14/2023 10:55 AM CDT Temperature 36.7 C (98 F) 10/14/2023 9:25 AM CDT Respiratory Rate 18 10/14/2023 10:5 5 AM CDT Oxygen Saturation 98% 10/14/2023 10: 55 AM CDT Inhaled Oxygen Concentration - - Weight 89.7 kg (197 lb 12.8 oz) 10/14/2023 5:50 AM CDT Height 177.8 cm (5' 10) 10/14/2023 5:50 AM CDT Body Mass Index 28.38 10/14/2023 5:50 AM CDT Plan of Treatment Health Maintenance Due Date Last Done Comments Colon Cancer Screening-Colonoscopy 1967 Hepatitis C Screening 1967 Dilated Eye Exam 1967 DTaP/Tdap/Td Vaccine (1 - Tdap) 1978 Hepatitis B Screening 1985 Regular Well Visit/Exam 18-64 1985 Pneumococcal vaccine <65 (1 of 2 - PCV) 1986 Zoster Vaccine (1 of 2) 2017 Prostate Cancer Screening-PSA 07/05/2022 07/05/2020 Albumin Creatinine Ratio, Urine 09/20/2022 , 07/05/2020 Depression Screening 09/20/2022 09/20/2021, 05/06/20 Foot Exam 09/20/2022 09/20/2021, 02/0 07/2020, 03/04/2019 Lipid Panel 09/20/2022 09/20/2021, 06/17, 02/19/2019 eGFR 09/20/2022 09/20/2021, 021 07/2020, 07/05/2020, Additional history exists Hemoglobin A1C 04/07/2024 10/07/2023, 04/0 12/2021, 07/05/2020, Additional history exists Influenza Vaccine (Season Ended) 2025 Medical Devices Implanted Type Area Animal Cruelty Investigator Device Identifier Shelf Expiration Date Model / Serial / Lot [employer] [place] 15fr 62cm 2 Cuff Radiopaque Peritoneal Curl Catheter [id number] - [id number] Implanted:Qty : 1 on 10/14/2023 by Hai Gomez MD at [facility] N/A: Abdomen [employer] [id number] 02/13/2028 [id number] / / [id number] Procedures Procedure Name Priority Date/Time Associated Diagnosis Comments HEMOGLOBIN A1C Routine 10/07/2023 8:09 AM CDT Pre-op testing EGFR Routine 09/20/2021 1:52 PM CDT Type 2 diabetes mellitus with hyperglycemia, with long-term current use of insulin (HCC) LIPID PANEL Routine 09/20/2021 1:52 PM CDT Type 2 diabetes mellitus with hyperglycemia, with long-term current use of insulin (HCC) ALBUMIN CREATININE RATIO, URINE Routine 09/20/2021 1:52 PM CDT Type 2 diabetes mellitus with hyperglycemia, with long-term current use of insulin (HCC) PSA, TOTAL Routine 07/05/2020 6:11 PM HAND CIGAR MAKING SUPERVISOR from Last 3 Months or Most Recently Relevant to Health Maintenance Results * (ABNORMAL) Hemoglobin A1c (10/07/2023 8:09 AM CDT) Hgb A1C 5.8(H) 4.0 - 5.6 % Comment:Testing performed by : [address] [address] Estimated Average Glucose 120 mg/dL GEOFF Comment: The ADA recommends reporting an estimated Average Glucose (eAG) with all Hemoglobin A1c results using the equation derived from a study of 507 normal and diabetic adults. Minority populations were underrepresented and children were not included. (Diabetes Care 31:4790-9950, 2008). The eAG is not equivalent to a fasting glucose. Testing performed by: [facility], [address] [place] [address]., [id number] Blood 10/07/2023 8:09 AM CDT 10/07/2023 8:25 AM CDT us Prakash Ang MD LAB BLOOD ORDERABLES [facility] al Result [facility] [address] Department [place] [address] * eGFR (09/20/2021 1:52 PM CDT) eGFR 25 mL/min/1. 73 m2 GEOFF Comment: Interpretive Data Reference Interval Normal >/= 90 mL/min/1.73m2 Mildly decreased* 60 - 89 mL/min/1.73m2 Mildly to moderately decreased 45 - 59 mL/min/1.73m2 Moderately to severely decreased 30 - 44 mL/min/1.73m2 Severely decreased 15 - 29 mL/min/1.73m2 Kidney Failure < 15 mL/min/1.73m2 *Relative to young adult level Estimated glomerular filtration rate is determined by the 2020 CKD-EPI equation recommended by the National Kidney Foundation (A Unifying Approach to GFR Estimation: Recommendations of the NKF-ASK Task Force on Reassessing the Inclusion of Race in Diagnosing Kidney Disease, JASN 2020). The CKD-EPI equation should not be used for patients with unstable renal function and has not been validated in children and those over 70. Current interpretive data was last reviewed 2021. Blood 09/20/2021 1:52 PM CDT 09/20/2021 8:19 PM CDT Vijay Durbin MD LAB BLOOD ORDERABLES Final Resul t Performing Organization Address [facility] Co de Phone Number GEOFF [facility]STA [id number] [place] [address] * (ABNORMAL) Albumin Creatinine Ratio, Urine (09/20/2021 1:52 PM CDT) Albumin Ur 1,152.5 mg/L GEOFF Comment: Interpretive Data No reference range established. Current interpretive data was last revised 2018. Creatinine Ur 65.4 mg/dL GEOFF Comment: Interpretive Data No reference range established. Current interpretive data was last revised 2018. Albumin Creatinine Ratio, Ur 1,762(H) 1 - 29 mg/g GEOFF Urine 09/20/2021 1:52 PM CDT 09/20/2021 8:02 PM CDT us Vijay Durbin MD LAB URINE ORDERABLES Final Resul t Performing Organization Address City/[facility] Co de Phone Number GEOFF [facility]COSTA [id number] [place] [address] * (ABNORMAL) Lipid panel (09/20/2021 1:52 PM CDT) Cholesterol 149 30 - 199 mg/dL GEOFF Comment: Interpretive Data Ages < or = 19 years Acceptable: <170 mg/dL Borderline high: 170-199 mg/dL High: >or= 200 mg/dL Ages > or = 20 years Desirable: <200 mg/dL Borderline high: 200-239 mg/dL High: >or= 240 mg/dL Literature References: 1. Expert Panel on Integrated Guidelines for Cardiovascular Health and Risk Reduction in Children and Adolescents. Pediatrics 2011;128:S213 2. NCEP Expert Panel. Circulation 2004;110:227 Current Interpretive Data was last revised on 2018. Triglycerides 164(H) <=149 mg/dL [facility]STA Comment: Interpretive Data Ages < or = 9 years Acceptable: <75 mg/dL Borderline high: 75-99 mg/dL High: >or= 100 mg/dL Ages 10 to 20 years Acceptable: <90 mg/dL Borderline high: 90-129 mg/dL High: >or= 130 mg/dL Ages > or = 20 years Desirable: <150 mg/dL Borderline high: 150-199 mg/dL High: 200-499 mg/dL Very high: >or= 499 mg/dL Literature References: 1. Expert Panel on Integrated Guidelines for Cardiovascular Health and Risk Reduction in Children and Adolescents. Pediatrics 2011;128:S213 2. NCEP Expert Panel. Circulation 2004;110:227 Current Interpretive Data was last revised on 2018. HDL 47 >=40 mg/dL [facility]STA Comment: Interpretive Data Ages < or = 19 years Acceptable: >45 mg/dL Borderline low: 40-45 mg/dL Low: <40 mg/dL Ages > or = 20 years Desirable: >or= 60 mg/dL Low: <40 mg/dL Literature References: 1. Expert Panel on Integrated Guidelines for Cardiovascular Health and Risk Reduction in Children and Adolescents. Pediatrics 2011;128:S213 2. NCEP Expert Panel. Circulation 2004;110:227 Current Interpretive Data was last revised on 2018. LDL, calculated 69 <=129 mg/dL [facility] ACOSTA Comment: Interpretive Data Ages < or = 19 years Acceptable: <110 mg/dL Borderline high: 110-129 mg/dL High: >or= 130 mg/dL Ages > or = 20 years Optimal: <100 mg/dL Near optimal: 100-129 mg/dL Borderline high: 130-159 mg/dL High: >160 mg/dL Literature References: 1. Expert Panel on Integrated Guidelines for Cardiovascular Health and Risk Reduction in Children and Adolescents. Pediatrics 2011;128:S213 2. NCEP Expert Panel. Circulation 2004;110:227 Current Interpretive Data was last revised on 2018. Non-HDL Cholesterol 102 mg/dL [facility]STA Comment: Interpretive Data Ages < or = 19 years Acceptable: <120 mg/dL Borderline high: 120-144 mg/dL High: >145 mg/dL Ages > or = 20 years When triglycerides are >200 mg/dL, Non-HDL cholesterol is a secondary target of therapy with treatment goals that are 30 mg/dL greater than the LDL cholesterol target. Literature References: 1. Expert Panel on Integrated Guidelines for Cardiovascular Health and Risk Reduction in Children and Adolescents. Pediatrics 2011;128:S213 2. NCEP Expert Panel. Circulation 2004;110:227 Current Interpretive Data was last revised on 2018. Chol/HDL ratio 3 GEOFF Blood 09/20/2021 1:52 PM CDT 09/20/2021 8:02 PM CDT Narrative [facility] ACOSTA - 09/20/2021 8:40 PM CDT These lab test should be done fasting. This means do not eat or drink for at least 12 hours prior to getting your blood drawn. Vijay Durbin MD LAB BLOOD ORDERABLES Final Resul t GEOFF [id number] Department [place] [address] * PSA, total Blood (07/05/2020 6:11 PM HAND CIGAR MAKING SUPERVISOR) SCRIBED PSA, Total 0.4 0.0 - 4.0 [facility] Blood specimen (specimen) Anish Provider LAB BLOOD ORDERABLES Edit ed Result - Final [facility] from Last 3 Months or Most Recently Relevant to Health Maintenance Insurance [facility] Advance Directives For more information, please contact: [phone] * Full Code (Latest Code Status on File) Date Activated Date Inactivated Comments 05/20/2019 10:05 AM 05/20/2019 5:26 PM * Full Code Date Activated Date Inactivated Comments 02/21/2019 3:44 PM 02/25/2019 5:52 PM * Full Code Date Activated Date Inactivated Comments 02/18/2019 8:53 PM 02/21/2019 3:35 PM Care Teams Commercial Lease Administrator Relationship Specialty Start Date End Date Yovanny Morris MD [address] [place] [address] PCP - General Internal Medicine 02/26/19 Thomas White MD PhD [address] [address] Consulting Physician Neurology 02/25/19 Finesse Dewitt MD [address] [place] [address] Consulting Physician Cardiology 11/26/21
--- OUTSIDE RECORDS SUMMARY | 2024-11-26 11:21 | XMS_ITS | Clinical Summary ---
Author Organization [facility] [employer] Address [address] [place] [address] Care Team Providers Care Cafeteria Food Server Name Role Phone Unavailable Primary Care Provider Unavailabl e Source Comments [facility],non-owned Affiliates and Associated Physician Practices is amultiple site organization consisting of ambulatory clinics and hospital sitesin [place], [place], [place] and [place]. This disclosure is being madepursuant to the Care Everywhere program and may not contain all information available regarding this patient. Last updated 18.[facility] Active Problems Problem Noted Date Diagnosed Date Cerebrovascular accident (CVA) 02/18/2019 Social History Tobacco Use Types Packs/Day Years Used Date Smoking Tobacco: Never Assessed Sex and Gender Information Value Date Recorded Sex Assigned at Not on file Legal Sex Male 11:34 AM CDT Gender Identity Not on file Sexual Orientation Not on file Plan of Treatment Health Maintenance Due Date Last Done Comments COLOGUARD (AGES 45-75) - COL ON CA SCREENING 1967 COLON MONITORING 1967 COLONOSCOPY - COLON CA SCREENING 1967 CT COLONOGRAPHY - COLON CA SCREENING 1967 Colorectal Cancer Screening 1967 FIT - COLON CA SCREENING 1967 FLEX SIG - COLON CA SCREENING 1967 LIPID TESTING 1967 HIV SCREENING 1982 HEPATITIS C SCREENING 03/21/1985 DTAP/TDAP/TD VACCINES (1 - Tdap) 1986 HEPATITIS B VACCINE (1 of 3 - 19+ 3-dose series) 1986 PNEUMOCOCCAL VACCINE 50+ (1 of 1 - PCV) 2017 ZOSTER VACCINE (1 of 2) 2017 COVID-19 VACCINE (1 - 2023-2 5 season) 2024 DEPRESSION SCREENING 06/16/2024 INFLUENZA VACCINE (Season Ended) 2025 HIB VACCINE Aged Out No longer eligi ble based on patient's age to complete this topic HPV VACCINE Aged Out No longer eligi ble based on patient's age to complete this topic MENINGOCOCCAL (Group B) VACC INE SHARED DECISION-MAKING Aged Out No longer eligibl e based on patient's age to complete this topic MENINGOCOCCAL GROUPS A/C/Y/W VACCINE Aged Out No longer eligible b ased on patient's age to complete this topic Insurance [place] [facility] [place] [facility] [place] [facility] [place]
--- OUTSIDE RECORDS SUMMARY | 2024-11-26 11:21 | XMS_ITS | Referral Summary ---
[facility] Organization [facility] Address [address] [facility] [place] [address] Care Team Providers Care Steel Turner Name Role Phone Thomas White MD PhD Unavailable [phone] Yovanny Morris MD Primary Care Provider + Finesse Dewitt MD Unavailable Allergies Active Allergy Reactions Criticality Noted Date [...] Daily, Instructed to stop on 10/09 per cap inspector, Reported on 10/02/2023 [email or web address] (PRINIVIL,ZESTR [place]) 40 [...] 07/18/2020 Assessment & Plan (07/18/2020 2:45 PM HUMANE OFFICER): With proteinuria Restart Jardiance, 25 mg daily Lower Metformin , 500 mg daily Recheck BMP in 6 weeks Coronary artery disease of n ative artery of [place] heart with stable angina pectoris 06/05/2019 Hyperlipidemia associated with type 2 diabetes tawana mckenna 04/06/2019 Assessment & Plan (09/20/2021 1:49 PM CDT): Chronic, well controlled Low fat Low cholesterol diet Exercise Continue statin therapy Check lipid profile Assessment & Plan (07/18/2020 2:46 PM HUMANE OFFICER): Goal of treatment , LDL cholesterol less [...] therapy Assessment & Plan (05/06/2019 4:44 PM HUMANE OFFICER): Goal of treatment , LDL cholesterol less [...] Metformin Assessment & Plan (07/18/2020 2:43 PM HUMANE OFFICER): Last hba1c 6.6 . Indicating adequate glycemic [...] discussed. Assessment & Plan (05/06/2019 4:44 PM HUMANE OFFICER): Your Hba1c today was: Lab Results Component Value Date HGBA1C 7.5 % 05/06/2019 meaning a 3 month average sugar of : 164 Indicating inadequate DM control Your goal hba1c is under 7.0 to prevent supervisor long goods diabetes complications ( eye , kidney and [...] goal hba1c is under 7.0 to prevent supervisor long goods diabetes complications ( eye , kidney and [...] Check BMP Check MA. Tobacco abuse 02/18/2019 Social History Tobacco Use Types Packs/Day [...] Orientation Straight 03/01/2019 7: 52 AM CDT Last Filed Vital Signs Vital Sign Reading [...] 10/14/2023 5:50 AM CDT Plan of Treatment Not on file Medical Devices Implanted Type Area Bird Sitter Device Identifier Shelf Expiration Date Model / Serial / Lot Medtronic Inc [place] 15fr 62cm 2 Cuff Radiopaque Peritoneal Curl Catheter [id number] - [id number] Implanted:Qty : 1 on 10/14/2023 by Hai Gomez MD at [facility] N/A: Abdomen Med[employer] Inc [id number] 02/13/2028 [id number] / / [id number] Procedures Procedure Name Priority Date/Time Associated Diagnosis [...] (HCC) PSA, TOTAL Routine 07/05/2020 6:11 PM HUMANE OFFICER from Last 3 Months or Most Recently Relevant to Health Maintenance Results * (ABNORMAL) Hemoglobin A1c (10/07/2023 8:09 AM CDT) Hgb A1C 5.8(H) 4.0 - 5.6 % Comment:Testing performed by : [facility], [address] [place] [address]., [address] Estimated Average Glucose 120 mg/dL GEOFF OSULLIVAN Comment: The ADA recommends reporting an estimated Average Glucose (eAG) with all Hemoglobin A1c results using the equation derived from a study of 507 normal and diabetic adults. Minority populations were underrepresented and children were not included. (Diabetes Care 31:9906-2147, 2008). The eAG is not equivalent to a fasting glucose. Testing performed by: [facility], [address] [place] [address]., [address] Blood 10/07/2023 8:09 AM CDT 10/07/2023 8:25 AM CDT us Prakash Ang MD LAB BLOOD ORDERABLES Fin al Result GEOFF OSULLIVAN [address] [facility] Department [place] [address] * eGFR (09/20/2021 1:52 PM CDT) eGFR 25 mL/min/1. 73 m2 GEOFF ACOSTA Comment: Interpretive Data Reference Interval Normal >/= [...] ORDERABLES Final Resul t Performing Organization Address City/Va Hospital/ZIP Co de Phone Number GEOFF [address] [address] Department [place] [address] * (ABNORMAL) Albumin Creatinine Ratio, Urine (09/20/2021 1:52 PM CDT) Albumin Ur 1,152.5 mg/L GOEFF ACOSTA Comment: Interpretive Data No reference range established. Current interpretive data was last revised 2018. Creatinine Ur 65.4 mg/dL GEOFF ACOSTA Comment: Interpretive Data No reference range established. Current interpretive data was last revised 2018. Albumin Creatinine Ratio, Ur 1,762(H) 1 - 29 mg/g GEOFF ACOSTA Urine 09/20/2021 1:52 PM CDT 09/20/2021 8:02 PM CDT us Vijay Durbin MD LAB URINE ORDERABLES Final Resul t GEOFF ACOSTA [address] [facility] Department [place] [address] * (ABNORMAL) Lipid panel (09/20/2021 1:52 PM CDT) Cholesterol 149 30 - 199 mg/dL GEOFF ACOSTA Comment: Interpretive Data Ages [...] on 2018. HDL 47 >=40 mg/dL GEOFF ACOSTA Comment: Interpretive Data Ages [...] hours prior to getting your blood drawn. us Vijay Durbin MD LAB BLOOD ORDERABLES Final Resul t GEOFF [address] Department [place] [address] * PSA, total Blood (07/05/2020 6:11 PM HUMANE OFFICER) SCRIBED PSA, Total 0.4 0.0 - 4.0 [facility] Blood specimen (specimen) us Historical Provider LAB BLOOD ORDERABLES Edit ed Result - Final [facility] from Last 3 Months or Most Recently Relevant to Health Maintenance Insurance [facility] Advance Directives For more information, please contact: [phone] * Full Code (Latest Code Status on File) Date Activated Date Inactivated Comments 05/20/2019 10:05 AM 05/20/2019 5:26 PM * Full Code Date Activated Date Inactivated Comments 02/21/2019 3:44 PM 02/25/2019 5:52 PM * Full Code Date Activated Date Inactivated Comments 02/18/2019 8:53 PM 02/21/2019 3:35 PM Care Teams Steel Turner Relationship Specialty Start Date End Date Yovanny Morris MD [address] [facility] [place] [address] PCP - General Internal Medicine 02/26/19 Thomas White MD PhD [address] [facility] [address] [place] [address] Consulting Physician Neurology 02/25/19 Finesse Dewitt MD [address] [facility] [place] [address] Consulting Physician Cardiology 11/26/21
--- OUTSIDE RECORDS SUMMARY | 2024-11-26 11:21 | XMS_ITS | Encounter Summary ---
Author Organization [facility] Address [address] [place] [address] Care Team Providers Care Brilliandeer Looper Name Role Phone Thomas White MD PhD Unavailable Yovanny Morris MD Primary Care Provider + Finesse Dewitt MD Unavailable [phone] Encounter Details Date Type Department Care Team (Late st Contact Info) Description 08/03/2020 Telephone [facility] - Imaging [address] [place] [address] Transcribed Order, Provider Social History Tobacco Use Types Packs/Day Years Used Date Smoking Tobacco: Every Day Cigarettes 0.5 20 Smokeless Tobacco: Never Alcohol Use Standard Drinks/Week Comments Not Currently 0 (1 standard drink = 0.6 oz pur e alcohol) PHQ-2 Answer Date Recorded PHQ-2 Score 0 05/06/2019 Sex and Gender Information Value Date Recorded Sex Assigned at Not on file Legal Sex Male 3:24 PM CDT Gender Identity Male 01/15/2022 7:17 AM CDT Sexual Orientation Straight 03/01/2019 7: 52 AM CDT documented as of this encounter Plan of Treatment Not on file documented as of this encounter Visit Diagnoses Not on filedocumented in this encounter Care Teams Brilliandeer Looper Relationship Specialty Start Date End Date Yovanny Morris MD [address] [facility] [address] PCP - General Internal Medicine 02/26/19 Thomas White MD PhD [address] [address] Consulting Physician Neurology 02/25/19 Finesse Dewitt MD [address] [place] [address] Consulting Physician Cardiology 11/26/21 documented as of this encounter
--- OUTSIDE RECORDS SUMMARY | 2024-11-26 12:15 | XMS_ITS | Referral Summary ---
Author Organization [facility] Address [address] [facility] [place] [address] Care Team Providers Care Aviation Engineer Name Role Phone Thomas White MD PhD Unavailable [phone] Yovanny Morris MD Primary Care Provider + Finesse Dewitt MD Unavailable [phone] Allergies Active Allergy Reactions Criticality Noted Date [...] Daily, Instructed to stop on 10/09 per shelter director, Reported on 10/02/2023 lisinopriL (PRINIVIL,ZESTR IL) 40 [...] 07/18/2020 Assessment & Plan (07/18/2020 2:45 PM CERTIFIED VEHICLE FIRE INVESTIGATOR): With proteinuria Restart Jardiance, 25 mg daily Lower Metformin , 500 mg daily Recheck BMP in 6 weeks Coronary artery disease of n ative artery of [place] heart with stable angina pectoris 06/05/2019 Hyperlipidemia associated with type 2 diabetes tawana mckenna 04/06/2019 Assessment & Plan (09/20/2021 1:49 PM CDT): Chronic, well controlled Low fat Low cholesterol diet Exercise Continue statin therapy Check lipid profile Assessment & Plan (07/18/2020 2:46 PM CERTIFIED VEHICLE FIRE INVESTIGATOR): Goal of treatment , LDL cholesterol less [...] therapy Assessment & Plan (05/06/2019 4:44 PM CERTIFIED VEHICLE FIRE INVESTIGATOR): Goal of treatment , LDL cholesterol less [...] Metformin Assessment & Plan (07/18/2020 2:43 PM CERTIFIED VEHICLE FIRE INVESTIGATOR): Last hba1c 6.6 . Indicating adequate glycemic [...] discussed. Assessment & Plan (05/06/2019 4:44 PM CERTIFIED VEHICLE FIRE INVESTIGATOR): Your Hba1c today was: Lab Results Component Value Date HGBA1C 7.5 % 05/06/2019 meaning a 3 month average sugar of : 164 Indicating inadequate DM control Your goal hba1c is under 7.0 to prevent terminal carman diabetes complications ( eye , kidney and [...] goal hba1c is under 7.0 to prevent terminal carman diabetes complications ( eye , kidney and [...] on file Medical Devices Implanted Type Area Crm Marketing Specialist Device Identifier Shelf Expiration Date Model / Serial / Lot Medtronic Inc [place] 15fr 62cm 2 Cuff Radiopaque Peritoneal Curl Catheter [id number] - [id number] Implanted:Qty : 1 on 10/14/2023 by Hai Gomez MD at [facility] N/A: Abdomen [employer] Inc [id number] 02/13/2028 [id number] / / [id number] Procedures Procedure Name Priority Date/Time Associated Diagnosis [...] (HCC) PSA, TOTAL Routine 07/05/2020 6:11 PM CERTIFIED VEHICLE FIRE INVESTIGATOR from Last 3 Months or Most Recently Relevant to Health Maintenance Results * (ABNORMAL) Hemoglobin A1c (10/07/2023 8:09 AM CDT) Hgb A1C 5.8(H) 4.0 - 5.6 % Comment:Testing performed by : [facility], [address] [place] [address]., [address] Estimated Average Glucose 120 mg/dL GEOFF OSULLIVAN Comment: The ADA recommends reporting an estimated Average Glucose (eAG) with all Hemoglobin A1c results using the equation derived from a study of 507 normal and diabetic adults. Minority populations were underrepresented and children were not included. (Diabetes Care 31:2448-5492, 2008). The eAG is not equivalent to a fasting glucose. Testing performed by: [facility], [address] [place] [address]., [address] Blood 10/07/2023 8:09 AM CDT 10/07/2023 8:25 AM CDT us Prakash Ang MD LAB BLOOD ORDERABLES Fin al Result GEOFF OSULLIVAN [address] [facility] Department [place] [address] * eGFR (09/20/2021 1:52 PM [...] ORDERABLES Final Resul t Performing Organization Address City/[facility]/ZIP Co de Phone Number GEOFF [address] [address] Department [place] [address] * (ABNORMAL) Albumin Creatinine Ratio, Urine (09/20/2021 1:52 PM CDT) Albumin Ur 1,152.5 mg/L GEOFF ACOSTA Comment: Interpretive Data No reference [...] URINE ORDERABLES Final Resul t GEOFF ACOSTA [address] [facility] Department [place] [address] * (ABNORMAL) Lipid panel (09/20/2021 1:52 PM [...] LAB BLOOD ORDERABLES Final Resul t GEOFF [address] [address] Department [place] [address] * PSA, total Blood (07/05/2020 6:11 PM CERTIFIED VEHICLE FIRE INVESTIGATOR) SCRIBED PSA, Total 0.4 0.0 - 4.0 [facility] Blood specimen (specimen) us Historical Provider LAB BLOOD ORDERABLES Edit ed Result - Final [facility] from Last 3 Months or Most Recently Relevant to Health Maintenance Insurance [facility] Advance Directives For more information, please contact: [phone] * Full Code (Latest Code Status on File) Date Activated Date Inactivated Comments 05/20/2019 10:05 AM 05/20/2019 5:26 PM * Full Code Date Activated Date Inactivated Comments 02/21/2019 3:44 PM 02/25/2019 5:52 PM * Full Code Date Activated Date Inactivated Comments 02/18/2019 8:53 PM 02/21/2019 3:35 PM Care Teams Aviation Engineer Relationship Specialty Start Date End Date Yovanny Morris MD [address] [facility] [place] [address] PCP - General Internal Medicine 02/26/19 Thomas White MD PhD [address] [facility] [address] [place] [address] Consulting Physician Neurology 02/25/19 Finesse Dewitt MD [address] [facility] [place] [address] Consulting Physician Cardiology 11/26/21
--- OUTSIDE RECORDS SUMMARY | 2024-11-26 12:15 | XMS_ITS | Clinical Summary ---
[facility] Address [address] [facility] [place] [address] Care Team Providers Care Button Puncher Name Role Phone Thomas White MD PhD Unavailable [phone] Yovanny Morris MD Primary Care Provider + Finesse Dewitt MD Unavailable [phone] Allergies Active Allergy Reactions Criticality Noted Date [...] Daily, Instructed to stop on 10/09 per shoe salesperson, Reported on 10/02/2023 lisinopriL (PRINIVIL,ZESTR IL) 40 [...] 07/18/2020 Assessment & Plan (07/18/2020 2:45 PM LINE SERVICE TECHNICIAN): With proteinuria Restart Jardiance, 25 mg daily Lower Metformin , 500 mg daily Recheck BMP in 6 weeks Coronary artery disease of n ative artery of [place] heart with stable angina pectoris 06/05/2019 Hyperlipidemia associated with type 2 diabetes tawana mckenna 04/06/2019 Assessment & Plan (09/20/2021 1:49 PM CDT): Chronic, well controlled Low fat Low cholesterol diet Exercise Continue statin therapy Check lipid profile Assessment & Plan (07/18/2020 2:46 PM LINE SERVICE TECHNICIAN): Goal of treatment , LDL cholesterol less [...] therapy Assessment & Plan (05/06/2019 4:44 PM LINE SERVICE TECHNICIAN): Goal of treatment , LDL cholesterol less [...] Metformin Assessment & Plan (07/18/2020 2:43 PM LINE SERVICE TECHNICIAN): Last hba1c 6.6 . Indicating adequate glycemic [...] discussed. Assessment & Plan (05/06/2019 4:44 PM LINE SERVICE TECHNICIAN): Your Hba1c today was: Lab Results Component Value Date HGBA1C 7.5 % 05/06/2019 meaning a 3 month average sugar of : 164 Indicating inadequate DM control Your goal hba1c is under 7.0 to prevent press tender long goods diabetes complications ( eye , [...] goal hba1c is under 7.0 to prevent press tender long goods diabetes complications ( eye , [...] Ended) 2025 Medical Devices Implanted Type Area Waterproofer Device Identifier Shelf Expiration Date Model / Serial / Lot Medtronic Inc [place] 15fr 62cm 2 Cuff Radiopaque Peritoneal Curl Catheter [id number] - [id number] Implanted:Qty : 1 on 10/14/2023 by Hai Gomez MD at [facility] N/A: Abdomen Med[employer] Inc [id number] 02/13/2028 [id number] / / [id number] Procedures Procedure Name Priority Date/Time Associated Diagnosis [...] (HCC) PSA, TOTAL Routine 07/05/2020 6:11 PM LINE SERVICE TECHNICIAN from Last 3 Months or Most Recently Relevant to Health Maintenance Results * (ABNORMAL) Hemoglobin A1c (10/07/2023 8:09 AM CDT) Hgb A1C 5.8(H) 4.0 - 5.6 % Comment:Testing performed by : [address] [address] Estimated Average Glucose 120 mg/dL GEOFF Comment: The ADA recommends reporting an estimated Average Glucose (eAG) with all Hemoglobin A1c results using the equation derived from a study of 507 normal and diabetic adults. Minority populations were underrepresented and children were not included. (Diabetes Care 31:8265-0116, 2008). The eAG is not equivalent to a fasting glucose. Testing performed by: [facility], [address] [place] [address]., [address] Blood 10/07/2023 8:09 AM CDT 10/07/2023 8:25 AM CDT us Prakash Ang MD LAB BLOOD ORDERABLES [facility] al Result GEOFF [address] [facility] Department [place] [address] * eGFR (09/20/2021 1:52 PM [...] ORDERABLES Final Resul t Performing Organization Address [facility] Co de Phone Number GEOFF ACOSTA [address] [place] [address] * (ABNORMAL) Albumin Creatinine Ratio, [...] ORDERABLES Final Resul t Performing Organization Address City/[facility] Co de Phone Number GEOFF ACOSTA [address] [place] [address] * (ABNORMAL) Lipid panel (09/20/2021 [...] LAB BLOOD ORDERABLES Final Resul t GEOFF [address] [address] Department [place] [address] * PSA, total Blood (07/05/2020 6:11 PM LINE SERVICE TECHNICIAN) SCRIBED PSA, Total 0.4 0.0 - 4.0 [facility] Blood specimen (specimen) Anish Provider LAB BLOOD ORDERABLES Edit ed Result - Final [facility] from Last 3 Months or Most Recently Relevant to Health Maintenance Insurance [facility] Advance Directives For more information, please contact: [phone] * Full Code (Latest Code Status on File) Date Activated Date Inactivated Comments 05/20/2019 10:05 AM 05/20/2019 5:26 PM * Full Code Date Activated Date Inactivated Comments 02/21/2019 3:44 PM 02/25/2019 5:52 PM * Full Code Date Activated Date Inactivated Comments 02/18/2019 8:53 PM 02/21/2019 3:35 PM Care Teams Button Puncher Relationship Specialty Start Date End Date Yovanny Morris MD [address] [facility] [place] [address] PCP - General Internal Medicine 02/26/19 Thomas White MD PhD [address] [address] Consulting Physician Neurology 02/25/19 Finesse Dewitt MD [address] [facility] [place] [address] Consulting Physician Cardiology 11/26/21
--- OUTSIDE RECORDS SUMMARY | 2024-11-26 12:15 | XMS_ITS | Clinical Summary ---
Author Organization [facility] Address [address] [place] [address] Care Team Providers Care Machines Technician Name Role Phone Unavailable Primary Care Provider Unavailabl e Source Comments [facility],non-owned Affiliates and Associated Physician Practices is amultiple site organization consisting of ambulatory clinics and hospital sitesin [place] and [place]. This disclosure is being madepursuant to the Care Everywhere program and may not contain all information available regarding this patient. Last updated 18.[facility] Active Problems Problem Noted Date Diagnosed Date [...] to complete this topic Insurance ANTHEM ANTHEM [facility]
--- OUTSIDE RECORDS SUMMARY | 2024-11-26 12:15 | XMS_ITS | Encounter Summary ---
Author Organization [facility] Healthcare Address [address] [place] [address] Care Team Providers Care Import Coordination And Production Head Name Role Phone Thomas White MD PhD Unavailable [phone] Yovanny Morris MD Primary Care Provider + Finesse Dewitt MD Unavailable [phone] Encounter Details Date Type Department Care Team (Late st Contact Info) Description 08/03/[address] [facility] - Imaging [address] [place] [address] Transcribed Order, Provider Social History [...] on filedocumented in this encounter Care Teams Import Coordination And Production Head Relationship Specialty Start Date End Date Yovanny Morris MD [address] [facility] [place] [address] PCP - General Internal Medicine 02/26/19 Thomas Wihte MD PhD [address] [address] Consulting Physician Neurology 02/25/19 Finesse Dewitt MD [address] [place] [address] Consulting Physician Cardiology 11/26/21 documented as of this encounter
--- NOTE | 2024-11-26 12:33 | ECG_ITS ---
Test Date: 2024-11-26 13:37:28 Measurements Intervals [place] Rate: 67 P: -6 VT: 179 QRS: -45 QRSD: 121 T: 105 QT: 406 QTc: 431 Interpretive Statements SINUS RHYTHM POSSIBLE LEFT ATRIAL ENLARGEMENT LEFT ANTERIOR FASCICULAR BLOCK LEFT VENTRICULAR HYPERTROPHY AND ST-T CHANGE ABNORMAL ECG Compared to ECG 12/16/2023 15:49:57 HEART RATE HAS INCREASED Electronically Signed On 11-26-2024 13:47:59 CDT by Kishan Hightower D.O.
--- NOTE | 2024-11-26 12:39 | ED_ITS ---
HPI - Wound/Laceration General Chief Complaint: Wound/Laceration Stated Complaint: Left Foot Wound Time Seen by Provider: 11/26/24 12:03 History of Present Illness HPI narrative: 59-year-old male with a past medical history including end-stage renal disease on dialysis Friday, Friday, Friday, prior CVA, hypertension, diabetes, heart failure, active smoking. Patient presents to the emergency department with what seems to be gangrene of his left 2nd toe. Patient noticed that this morning when he change his socks but is not sure how long it could have been going on as he had the socks on. Denies any trauma or injury. Does not remember any bug bites, insect stings, lacerations or any inciting event. He noticed that his left foot is red on the dorsum and his toe is black and draining pus with exposed bone. Denies any systemic features such as fever, chills, chest pain, abdominal pain, back pain, nausea, vomiting. Did not go to dialysis today instead came to the hospital. Has not missed any dialysis sessions recently otherwise. Related Data Home Medications ?Medication ?Instructions ?Recorded ?Confirmed ?Last Taken ?Type amlodipine 10 mg tablet 10 mg PO DAILY 01/25/22 11/26/24 11/26/24 History atorvastatin 80 mg tablet 80 mg PO DAILY 01/25/22 11/26/24 11/26/24 History carvedilol 25 mg tablet 25 mg PO BID 01/25/22 11/26/24 11/26/24 History clopidogrel 75 mg tablet 75 mg PO DAILY 01/25/22 11/26/24 11/26/24 History hydralazine 50 mg tablet 50 mg PO TID 08/11/23 11/26/24 11/26/24 History Allergies Allergy/AdvReac Type Severity Reaction Status Date / Time tree nut Allergy Intermediate Itching Verified 11/26/24 19:01 Penicillins Allergy Unknown Unknown Verified 11/26/24 19:01 Review of Systems 2 Review of Systems: As reviewed above in HPI [facility] Past Medical History Medical History Tobacco abuse Elevated d-dimer Heart failure with preserved ejection fraction Echo in November 2022 showed normal LV size and function with an EF of 50 to 55%, mildly increased left ventricular wall thickness, and grade 2 diastolic dysfunction. 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 Cerebrovascular accident (02/2019) Anxiety Hyperlipidemia Hypertension Surgical History Surgical History History of cardiac catheterization (2019) History of colonoscopy with polypectomy Family History Family History Mother Carcinoma of colon Father Family history of diabetes mellitus in first degree relative Grandparent Diabetes mellitus Social History Social History Social History: Surrogate medical decision maker: Raina Yun, sibling. Code status: Do not resuscitate. Smoking packs per day: 0.5 Smoking cigarettes per day: 10.0 Years smoked: 40 Smoking pack-years: 20.00 Smoking status: Current every day smoker Alcohol intake: never Substance use: never Substance use type: does not use Do You Feel Safe in your Home?: Yes Lack of Transportation: YES Lack of Food: Never True Current Housing: I Have Housing Concerned About Future Housing: No Difficulty Paying Gas/Electric Bills: No Difficulty Paying for Meds: No Currently Unemployed: No Education: High School Diploma/GED Difficulty w/ Childcare or Family Care: No Living arrangements: with family Additional living arrangements comments: Lives in [place]. Has 4 children. Retired [employer]. Additional occupation/education comments: [employer]. Spiritual care concerns: No Exam 2 Narrative: GENERAL: [Well-appearing, well-nourished, and in no acute distress.] HEAD: [Normocephalic, atraumatic.] EYES: [PERRLA and EOMI.] ENT: Nares clear, no rhinorrhea or epistaxis. Mucous membranes moist. NECK: Supple. CHEST: [Clear to auscultation. No respiratory distress.] HEART: [Regular rate and rhythm]. No murmur heard. [Normal peripheral pulses.] ABDOMEN: [Soft, nondistended], [nontender], [No rigidity or guarding] EXTREMITIES: Left 2nd digit with wet gangrene in purulent drainage, exposed bone at the distal tip, overlying cellulitis of the dorsum of the left foot with redness and erythema and tenderness to palpation. Other digits are warm, extremities well-perfused otherwise, posterior tibialis pulse intact, no signs of streaking redness up the leg. Able to wiggle the digits except the 2nd toe, numbness to the toe. SKIN: Warm, dry, no rash. NEURO: [No focal deficits]. Alert and oriented [x3.] PSYCH: [Normal mood and affect.] Course Vital Signs Vital signs: Vital Signs Temperature 36.8 C 11/26/24 11:28 Pulse Rate 69 11/26/24 11:28 Respiratory Rate 18 11/26/24 11:28 Blood Pressure 140/88 11/26/24 11:28 Oxygen Delivery Room Air 11/26/24 11:28 Temperature 36.8 C 11/26/24 11:28 Pulse Rate 70 11/26/24 16:00 Respiratory Rate 18 11/26/24 16:00 Blood Pressure 162/79 H 11/26/24 15:17 Pulse Oximetry 96 11/26/24 16:00 Oxygen Delivery Room Air 11/26/24 16:00 MDM - Wound/Laceration MDM Narrative Medical decision making narrative: 59-year-old male with history of end-stage renal disease on dialysis, diabetes, hypertension, CVA, heart failure. Presenting with signs and symptoms of gangrene to his left toe. Unclear when this started patient knows that this morning when he changed his socks but states that he has not change his socks in quite some time. Left 2nd digit with wet gangrene and noted purulent drainage, exposed bone at the distal tip, overlying cellulitis of the dorsum of the left foot with redness and erythema and tenderness to palpation. Other digits are warm, extremities well-perfused otherwise, posterior tibialis pulse intact, no signs of streaking redness up the leg. Able to wiggle the digits except the 2nd toe, numbness to the toe. He is afebrile with no systemic signs of infection. Concern presently for gangrenous digit, diabetic foot infection, arterial occlusion less likely given the otherwise warm extremity with no other discoloration but he does have distal tip ulceration of that digit with exposed bone. Osteomyelitis also likely, necrotizing soft tissue infection felt less likely. X-rays were obtained of the foot with attention to the 2nd digit, arterial duplex studies were ordered, septic workup ordered including lactic acid, CRP, CBC, CMP, coags, started empirically on vancomycin, cefepime, Flagyl, given a fluid bolus. Patient will be re-evaluated and surgery consulted. Wound culture obtained, wound care consult placed. Workup reveals a leukocytosis of 12.2. Anemia of 11.5. Platelets 219. Coagulation panel unremarkable. Electrolytes show no significant derangements, BUN and creatinine reflective of his end-stage renal disease. Glucose 123. Lactic elevated at 2.3 which improved to 1.6 after fluid resuscitation. LFTs elevated from baseline. CRP elevated 25.5. X-ray of the foot was independently reviewed and shows moderate soft tissue swelling at the 2nd digit with distal phalanx difficult to visualize with potential osteomyelitis. There is also an extra-articular fracture of left proximal phalanx without any acute injury likely chronic. Arterial duplexes showed no evidence of stenosis. Spoke to orthopedic surgeon Dr. Llanes who recommended General surgery's evaluation for potential amputation. General surgeon Dr. Goodson was spoken to over the phone and patient will be admitted to the hospitalist service with Nephrology on consult and he will evaluate the patient for potential amputation potentially today. Patient made NPO now. Spoke to the hospitalist service being covered by Giovanna Angela the mid-level provider who accepted the patient to a med surge bed with telemetry for General surgery's evaluation and potential surgical interventions tonight. Medical Records Attestation: I reviewed the patient's medical records. Lab Data Attestation: I reviewed the patient's lab results. 11/26/24 12:43 11/26/24 12:43 Labs: Lab Results 11/26/24 11/26/24 Range/Units 12:42 12:43 WBC 12.2 H (4.5-10.0) K/mm3 RBC 3.91 L (4.6-6.20) M/mm3 Hgb 11.5 L (14.0-18.0) g/dL Hct 35.7 L (42.0-52.0) % MCV 91.3 (80-100) fl MCH 29.4 (26-34) pg MCHC 32.2 (32-36) g/dl RDW 13.7 (11.5-14.5) % Plt Count 219 (150-375) k/mm3 MPV 11.5 H (7.4-10.4) fl Immature Gran % (Auto) 0.7 H (0-0.5) % Neut % (Auto) 90.7 H (45.5-73.1) % Lymph % (Auto) 2.8 L (18.3-44.2) % Caroline % (Auto) 5.5 (2.6-8.5) % Eos % (Auto) 0.1 (0-4.4) % Baso % (Auto) 0.2 (0.2-1.2) % Lymph # (Auto) 0.34 L (0.9-3.2) K/mm3 Caroline # (Auto) 0.7 H (0.1-0.6) K/mm3 Eos # (Auto) 0.0 (0-0.3) K/mm3 Baso # (Auto) 0.0 (0.0-0.1) K/mm3 Abs Immat Gran (auto) 0.08 H (0.00-0.031) K/mm3 Absolute Neuts (auto) 11.1 H (1.3-6.7) K/mm3 Absolute Nucleated RBC 0.000 (0.0-0.012) K/mm3 Nucleated RBC % 0.0 (0.0-0.2) % PT 13.9 (11.1-14.7) Seconds INR 1.1 APTT 29.6 (22.3-36.8) Seconds Sodium 134 L (137-145) mmol/L Potassium 4.4 (3.4-5.0) mmol/L Chloride 89 L (98-107) mmol/L Carbon Dioxide 24 (22-30) mmol/L Anion Gap 21 H (4-12) mmol/L BUN 94 H D (9-20) mg/dL Creatinine 9.83 H (0.7-1.3) mg/dL Estim Creat Clear Calc 8 ml/min Estimated GFR 6 L (59 - ) Glucose 123 H (65-110) mg/dL Hemoglobin A1c 5.9 H (<5.7) % Lactic Acid 2.3 H (0.7-2.0) mmol/L Calcium 8.4 (8.4-10.2) mg/dL Total Bilirubin 1.7 H (0.2-1.3) mg/dL AST 150 H (17-59) U/L ALT 282 H (6-50) U/L Alkaline Phosphatase 135 H (38-126) U/L C-Reactive Protein 25.5 H (<1.0) mg/dL Total Protein 7.8 (6.3-8.2) g/dL Albumin 4.0 (3.5-5.1) g/dL Imaging Data Attestation: I personally reviewed and interpreted this imaging study as follows: My impression: Impressions Foot X-Ray 11/26/24 12:58 Impression: 1: Moderate soft tissue swelling of the second digit. The distal phalanx not well visualized. Cannot exclude osteomyelitis. 2: Extra-articular fracture left fifth proximal phalanx. Duplex Scan Lower Extremity Artery 11/26/24 13:53 IMPRESSION: 1. No evident hemodynamically significant stenosis either by follow-up elevation of peak systolic velocities or by direct visualization grayscale imaging with brisk systolic upstrokes arteries of the bilateral lower limbs. Critical Care Time Critical Care Time Critical Care Time: Yes Total Critical Care Time: 35 Discharge Plan Discharge Clinical Impression: Diabetic wet gangrene of the foot, Cellulitis of foot Patient Disposition: Still a Patient Condition: Stable
--- NOTE | 2024-11-26 12:46 | PC.NURSE ---
Blood culture drawn by vascular access with IV start.
[2024-11-26] MEDS: SODIUM CHLORIDE 0.9% IV 1,000 ML 999 ML IV CONT (12:47)
[2024-11-26 12:55] LABS: Basophils Percent Auto 0.2 % (0.2-1.2); Eosinophils Percent Auto 0.1 % (0-4.4); Hematocrit 35.7 % (42.0-52.0); Hemoglobin 11.5 g/dL (14.0-18.0); Immature Granulocyte Absolute 0.08 K/mm3 (0.00-0.031); Immature Granulocyte Percent A 0.7 % (0-0.5); Lymphocytes Absolute Auto 0.34 K/mm3 (0.9-3.2); Lymphocytes Percent Auto 2.8 % (18.3-44.2); Mean Corpuscular HGB Conc 32.2 g/dl (32-36); Mean Corpuscular Hemoglobin 29.4 pg (26-34); Mean Corpuscular Volume 91.3 fl (80-100); Mean Platelet Volume 11.5 fl (7.4-10.4); Monocytes Absolute Auto 0.7 K/mm3 (0.1-0.6); Monocytes Percent Auto 5.5 % (2.6-8.5); Neutrophils Absolute Auto 11.1 K/mm3 (1.3-6.7); Neutrophils Percent Auto 90.7 % (45.5-73.1); Platelet Count Result 219 k/mm3 (150-375); Red Blood Count 3.91 M/mm3 (4.6-6.20); Red Cell Distribution Width 13.7 % (11.5-14.5); White Blood Count 12.2 K/mm3 (4.5-10.0)
[2024-11-26 13:05] LABS: Lactic Acid Reflex 2.3 mmol/L (0.7-2.0)
[2024-11-26 13:07] LABS: Alanine Aminotransferase 282 U/L (6-50); Alkaline Phosphatase 135 U/L (38-126); Anion Gap 21 mmol/L (4-12); Aspartate Amino Transferase 150 U/L (17-59); Bilirubin,Total 1.7 mg/dL (0.2-1.3); Blood Urea Nitrogen 94 mg/dL (9-20); Calcium 8.4 mg/dL (8.4-10.2); Carbon Dioxide 24 mmol/L (22-30); Chloride 89 mmol/L (98-107); Estimated CRCL calculation 8 ml/min; Estimated Glomerular Filt Rate 6; Glucose 123 mg/dL (65-110); Potassium 4.4 mmol/L (3.4-5.0); Sodium 134 mmol/L (137-145); Total Protein 7.8 g/dL (6.3-8.2)
[2024-11-26 13:16] LABS: INR 1.1; Prothrombin Time 13.9 Seconds (11.1-14.7)
[2024-11-26 13:18] LABS: CRP. 25.5 mg/dL (<1.0)
[2024-11-26 13:24] LABS: Partial Thromboplastin Time 29.6 Seconds (22.3-36.8)
[2024-11-26] MEDS: CEFEPIME 2 GM/NS 50 ML 2 GM/50 ML BAG IVPB (13:57)
[2024-11-26] MEDS: metroNIDAZOLE 500 MG/ISO 100ML 500 MG/100 ML BAG 100 MG IVPB (13:57)
[2024-11-26] MEDS: VANCOMYCIN 1,750 MG/NS 500 ML 1,750 MG/500 ML BAG 250 MG IVPB (14:37)
[2024-11-26 14:53] LABS: Reflex Lactic Acid Yes or No Add Lactic
--- NOTE | 2024-11-26 16:00 | ADMGEN ---
This patient, Savage Yun, was admitted to Medical Room 348-01. Patient/family oriented to hospital policies and general routines including ID bracelet, bed and alarms, visiting hours, pain management, procedures, bathroom and other care routines, personal items, smoking policy, room service/diet, and visiting hours. Information on how to activate the Rapid Response Team has been discussed. Patient/Family are encouraged to report perceived risks to care and to ask questions if they do not understand what they are told or what they should do.
--- NOTE | 2024-11-26 16:23 | P.HP_ITS ---
H&P: HPI History of Present Illness Date/Time: 11/26/24 16:23 Chief Complaint: Diabetic wound Narrative: 59-year-old with past medical history of uncontrolled type 2 diabetes, end-stage renal disease on dialysis, heart failure with preserved ejection fraction, CAD, and CVA presents the hospital with a black toe. Patient states today whenever he was changing his socks that he noticed his 2nd toe with black draining pus and he could see the bone. Patient states that he does not know when his toe wound started because he has not changed his socks in the last week. Patient was advised to go to dialysis today however he presented to the hospital instead for his toe. Patient denies fevers or chills. In the ED in the ED patient has leukocytosis at 12.2, anemia at 11.5, sodium 134, chloride 89, anion gap 21, BUN 94, creatinine 9.83 GFR 6 lactic acid 2.3, AST 150 ALT 282, alkaline phos 135, CT C reactive protein 25.5. X-ray of the left foot shows Moderate soft tissue swelling of the second digit. The distal phalanx not well visualized. Cannot exclude osteomyelitis and Extra-articular fracture left fifth proximal phalanx. Lower extremity duplex scan shows No evident hemodynamically significant stenosis either by follow-up elevation of peak systolic velocities or by direct visualization grayscale imaging with brisk systolic upstrokes arteries of the bilateral lower limbs. EKG shows sinus rhythm with left anterior fascicular QTC 431. Surgery has been consulted for wet gangrene of the left 2nd toe. Review of Systems Review of Systems: 12 systems were reviewed and are negativ e except for as per HPI. [facility] Past Medical History Medical History Tobacco abuse Elevated d-dimer Heart failure with preserved ejection fraction Echo in November 2022 showed normal LV size and function with an EF of 50 to 55%, mildly increased left ventricular wall thickness, and grade 2 diastolic dysfunction. 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 Cerebrovascular accident (02/2019) Anxiety Hyperlipidemia Hypertension Surgical History Surgical History History of cardiac catheterization (2019) History of colonoscopy with polypectomy Family History Family History Mother Carcinoma of colon Father Family history of diabetes mellitus in first degree relative Grandparent Diabetes mellitus Social History Social History Social History: Surrogate medical decision maker: Raina Yun, sibling. Code status: Do not resuscitate. Smoking packs per day: 0.5 Smoking cigarettes per day: 10.0 Years smoked: 40 Smoking pack-years: 20.00 Smoking status: Current every day smoker Alcohol intake: never Substance use: never Substance use type: does not use Do You Feel Safe in your Home?: Yes Lack of Transportation: YES Lack of Food: Never True Current Housing: I Have Housing Concerned About Future Housing: No Difficulty Paying Gas/Electric Bills: No Difficulty Paying for Meds: No Currently Unemployed: No Education: High School Diploma/GED Difficulty w/ Childcare or Family Care: No Living arrangements: with family Additional living arrangements comments: Lives in [place]. Has 4 children. Retired [employer]. Additional occupation/education comments: [employer]. Spiritual care concerns: No Meds Home Medications and Allergies Home Medications ?Medication ?Instructions ?Recorded ?Confirmed ?Type amlodipine 10 mg tablet 10 mg PO DAILY 01/25/22 11/26/24 History atorvastatin 80 mg tablet 80 mg PO DAILY 01/25/22 11/26/24 History carvedilol 25 mg tablet 25 mg PO BID 01/25/22 11/26/24 History clopidogrel 75 mg tablet 75 mg PO DAILY 01/25/22 11/26/24 History hydralazine 50 mg tablet 50 mg PO TID 08/11/23 11/26/24 History Allergies Allergy/AdvReac Type Severity Reaction Status Date / Time tree nut Allergy Intermediate Itching Verified 11/26/24 19:01 Penicillins Allergy Unknown Unknown Verified 11/26/24 19:01 Vital Signs Vital Signs - 24 hr 11/26/24 11:28 11/26/24 13:58 11/26/24 14:42 Temperature 98.2 F Pulse Rate 69 69 71 Respiratory Rate 18 18 16 Blood Pressure 140/88 165/72 H 168/81 H Pulse Oximetry 97 97 Oxygen Delivery Room Air 11/26/24 15:17 Temperature Pulse Rate 70 Respiratory Rate 18 Blood Pressure 162/79 H Pulse Oximetry 96 Oxygen Delivery Exam Narrative: General: well appearing, appears stated age. HEENT: normocephalic, atraumatic. Mucous membranes moist. EOMI, PERRLA, bilateral sclera anicteric, no conjunctival injection. Neck supple without JVD, lymphadenopathy, or bruit. Respiratory: clear to ascultation bilaterally. No rales/rhonic/wheezes. Cardiovascular: Regular rate and rhythm, normal S1-S2 upon ascultation. No murmurs, rubs, or clicks. PMI is nondisplaced, capillary refill less than 3 second. Abdomen: Soft, round, no pulsatile masses, nondistended and nontender. No rebound, no guarding. No CVA tenderness, no hepatosplenomegaly. Bowel sounds present to all four quadrants. No high pitch or tinkling sounds, resonant to percussion. Extremities: No cyanosis, clubbing, or edema present. Pulses are palpable 2/2. Left foot erythema, dry necrotic 2nd toe Neuro: Alert and orientated x 4. PERRLA. Cranial nerves 2-12 intact without focal deficit. Skin: Warm, dry, and intact, without rash, erythema, or lesion. Psych: pleasant, cooperative, normal speech, normal affect, no hallucinations, no dysarthia H&P: Results Labs Labs: Short CBC 11/26/24 Range/Units 12:43 WBC 12.2 H (4.5-10.0) K/mm3 Hgb 11.5 L (14.0-18.0) g/dL Hct 35.7 L (42.0-52.0) % Plt Count 219 (150-375) k/mm3 [facility] 11/26/24 12:43 Sodium 134 L Potassium 4.4 Chloride 89 L Carbon Dioxide 24 BUN 94 H D Creatinine 9.83 H Glucose 123 H Calcium 8.4 Liver Function 11/26/24 Range/Units 12:43 Total Bilirubin 1.7 H (0.2-1.3) mg/dL AST 150 H (17-59) U/L ALT 282 H (6-50) U/L Alkaline Phosphatase 135 H (38-126) U/L Albumin 4.0 (3.5-5.1) g/dL Assessment and Plan Assessment and plan (1) Diabetic wet gangrene of the foot: Code(s): E11.52 - Type 2 diabetes mellitus with diabetic peripheral angiopathy with gangrene Status: Acute Assessment and Plan: Surgery consulted appears to be dry Lactic acid pending Cefepime, Flagyl, vancomycin Planned surgery for Friday NPO Friday night midnight Plavix on hold for surgery on Friday (2) Hypertension: Qualifiers: Hypertension type: unspecified Qualified Code(s): I10 - Essential (primary) hypertension Code(s): I10 - Essential (primary) hypertension Status: Chronic Assessment and Plan: Continue Coreg, amlodipine and hydralazine (3) Heart failure with preserved ejection fraction: Code(s): I50.30 - Unspecified diastolic (congestive) heart failure Status: Chronic Assessment and Plan: Continue blood pressure medications, statins (4) Carotid artery disease: Code(s): I77.9 - Disorder of arteries and arterioles, unspecified Status: Chronic Assessment and Plan: Plavix on hold (5) End stage renal disease on dialysis: Code(s): N18.6 - End stage renal disease; Z99.2 - Dependence on renal dialysis Status: Acute Assessment and Plan: Nephrology consulted Patient missed dialysis 11/26 Does not appear to be fluid overload (6) Anemia: Code(s): D64.9 - Anemia, unspecified Status: Chronic Assessment and Plan: Chronic, no signs of acute bleeding Transfuse for hemoglobin less than 7 or symptomatic No need for transfusion at this time Daily CBC (7) Type 2 diabetes mellitus: Code(s): E11.9 - Type 2 diabetes mellitus without complications Status: Acute Assessment and Plan: Diabetic diet Dorys thornton HS SSI Does not appear to be on home medication Quality VTE Prophylaxis VTE prophylaxis: mechanical ordered Hospitalist MIPS Advance Care Plan I have confirmed that the patient's Advanced Care Plan is present, code status is documented, or surrogate decision maker is listed in patient medical record.: Yes Medication Reconciliation I have utilized all available resources to obtain, update and review the patients current medications (includes all prescriptions, OTC, herbals, cannabis, and nutritional supplements).: Yes
[2024-11-26 16:45] LABS: Glucose Point of Care 113 mg/dl (65-105)
[2024-11-26] MEDS: LACTATED RINGERS 1,000 ML 120 ML IV CONT (17:01)
[2024-11-26 17:22] LABS: Lactic Acid 1.6 mmol/L (0.7-2.0)
[2024-11-26 17:24] LABS: Hemoglobin A1C. 5.9 % (<5.7)
[2024-11-26] MEDS: hydrALAZINE HCL 50 MG TABLET PO (17:53)
[2024-11-26] MEDS: DOCUSATE SODIUM 100 MG CAPSULE PO (18:10)
--- NOTE | 2024-11-26 19:13 | PM.CNGS ---
Assessment and Plan Assessment and plan (1) Diabetic infection of left foot: Code(s): E11.628 - Type 2 diabetes mellitus with other skin complications; L08.9 - Local infection of the skin and subcutaneous tissue, unspecified Status: Acute Assessment and Plan: agree with broad-spectrum antibiotics had been started. (2) Gangrenous toe: Code(s): I96 - Gangrene, not elsewhere classified Status: Acute Assessment and Plan: Explained to patient he will very likely require 2nd toe amputation. Continue IV antibiotics for now. Reassess again tomorrow (3) Antiplatelet or antithrombotic long-term use: Code(s): Z79.02 - correction (current) use of antithrombotics/antiplatelets Status: Chronic Assessment and Plan: appears to have been taking his Plavix at least yesterday if not today as well. Would like to give this a couple of days if possible for anti platelet defect to decrease before proceeding with toe amputation. (4) Chronic kidney disease, stage 5: Code(s): N18.5 - Chronic kidney disease, stage 5 Status: Chronic (5) Cerebrovascular accident: Onset Date: 02/2019 Qualifiers: CVA mechanism: unspecified Qualified Code(s): I63.9 - Cerebral infarction, unspecified Code(s): I63.9 - Cerebral infarction, unspecified Status: Chronic (6) Tobacco abuse: Code(s): Z72.0 - Tobacco use Status: Chronic (7) Diabetes: Qualifiers: Diabetes mellitus type: type 2 Diabetes mellitus terminal supervisor insulin use: without terminal supervisor use Diabetes mellitus complication status: with kidney complications Diabetes mellitus complication detail: with chronic kidney disease Chronic kidney disease stage: on chronic dialysis Qualified Code(s): E11.22 - Type 2 diabetes mellitus with diabetic chronic kidney disease; N18.6 - End stage renal disease; Z99.2 - Dependence on renal dialysis Code(s): E11.9 - Type 2 diabetes mellitus without complications Status: Chronic (8) Heart failure with preserved ejection fraction: Qualifiers: Heart failure chronicity: unspecified Qualified Code(s): I50.30 - Unspecified diastolic (congestive) heart failure Code(s): I50.30 - Unspecified diastolic (congestive) heart failure Status: Chronic (9) Carotid artery disease: Qualifiers: Carotid artery disease type: stenosis Laterality: unspecified laterality Qualified Code(s): I65.29 - Occlusion and stenosis of unspecified carotid artery Code(s): I77.9 - Disorder of arteries and arterioles, unspecified Status: Chronic History of Present Illness Consult details Consult date: 11/26/24 Reason for consult: other ( Gangrenous toe) Requesting physician: Aubrey Seay MD Narrative: patient is a 59-year-old man with history of stroke and diabetes. He has end-stage renal disease and is on dialysis. He came to the emergency room today because his left foot looked terrible. He has not changed his socks for an undisclosed amount of time. He did take off his sock today and noticed that he had a swollen foot and up black left 2nd toe with purulent drainage. He came to the emergency room and was noted to have cellulitis of his left foot with a black and gangrenous 2nd toe. It had a foul odor. White blood cell [place] [id number]. He did have some Doppler studies today which showed no significant perfusion issues with his right lower extremity. He is seen now in consultation regarding his left foot infection and diabetic toe. He takes Plavix and takes it every day. Review of Systems Review of Systems: All systems reviewed & are unremarkable except as noted in HPI and below ( HPI) [facility] Past Medical History Medical History Tobacco abuse Elevated d-dimer Heart failure with preserved ejection fraction Echo in November 2022 showed normal LV size and function with an EF of 50 to 55%, mildly increased left ventricular wall thickness, and grade 2 diastolic dysfunction. 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 Cerebrovascular accident (02/2019) Anxiety Hyperlipidemia Hypertension Surgical History Surgical History History of cardiac catheterization (2019) History of colonoscopy with polypectomy Family History Family History Mother Carcinoma of colon Father Family history of diabetes mellitus in first degree relative Grandparent Diabetes mellitus Social History Social History Social History: Surrogate medical decision maker: Raina Yun, sibling. Code status: Do not resuscitate. Smoking packs per day: 0.5 Smoking cigarettes per day: 10.0 Years smoked: 40 Smoking pack-years: 20.00 Smoking status: Current every day smoker Alcohol intake: never Substance use: never Substance use type: does not use Do You Feel Safe in your Home?: Yes Lack of Transportation: YES Lack of Food: Never True Current Housing: I Have Housing Concerned About Future Housing: No Difficulty Paying Gas/Electric Bills: No Difficulty Paying for Meds: No Currently Unemployed: No Education: High School Diploma/GED Difficulty w/ Childcare or Family Care: No Living arrangements: with family Additional living arrangements comments: Lives in [place]. Has 4 children. Ret[employer]. Additional occupation/education comments: [employer]. Spiritual care concerns: No Meds Home Medications and Allergies Home Medications ?Medication ?Instructions ?Recorded ?Confirmed ?Type amlodipine 10 mg tablet 10 mg PO DAILY 01/25/22 11/26/24 History atorvastatin 80 mg tablet 80 mg PO DAILY 01/25/22 11/26/24 History carvedilol 25 mg tablet 25 mg PO BID 01/25/22 11/26/24 History clopidogrel 75 mg tablet 75 mg PO DAILY 01/25/22 11/26/24 History hydralazine 50 mg tablet 50 mg PO TID 08/11/23 11/26/24 History Allergies Allergy/AdvReac Type Severity Reaction Status Date / Time tree nut Allergy Intermediate Itching Verified 11/26/24 19:01 Penicillins Allergy Unknown Unknown Verified 11/26/24 19:01 Vital Signs Vital Signs - 24 hr 11/26/24 11:28 11/26/24 13:58 11/26/24 14:42 Temperature 36.8 C Pulse Rate 69 69 71 Respiratory Rate 18 18 16 Blood Pressure 140/88 165/72 H 168/81 H Pulse Oximetry 97 97 Oxygen Delivery Room Air 11/26/24 15:17 11/26/24 16:00 Temperature Pulse Rate 70 70 Respiratory Rate 18 18 Blood Pressure 162/79 H Pulse Oximetry 96 96 Oxygen Delivery Room Air Exam Const: General: comfortable, no acute distress, alert, awake and poor hygiene HENMT: Head: normocephalic and atraumatic Mouth: Yes Normal oral and palatal mucosa present Eyes: Conjunctivae: conjunctivae normal Pupils: Equal, round and reactive pupils present EOM: EOMs intact bilaterally Neck: Neck: normal visual inspection, no lymphadenopathy and nontender Resp: Effort & Inspection: normal respiratory effort Auscultation: clear to auscultation bilaterally Cardio: Rate: regular rate Rhythm: regular rhythm Heart sounds: no gallops, no murmurs and no rubs GI: Inspection: non-distended GI Palp: Yes Soft to palpation, No Tenderness to palpation present (GI), No Hepatomegaly present and No Splenomegaly present Skin: Lesions: no lesions Rashes: no rashes Neuro: General: no focal motor deficits and CN's II-XI intact bilaterally Cranial nerves: Yes Equal, round and reactive pupils present, Yes Bilaterally intact EOM present, Yes facial symmetry and Yes Midline tongue present Speech: normal speech Motor exam (neuro): 5/5 motor strength present throughout and Motor abnormalities not present Extrem: General: no clubbing, cyanosis or edema and edema Left lower extremity: foot ( swelling and redness distally, black foul-smelling 2nd toe) Details: normal capillary refill, warmth and vascular exam Details: normal capillary refill; dorsalis pedis pulse absent, posterior tivial pulse absent, not cool and no cyanosis; no ecchymosis and no crepitus Psych: Appearance: disheveled Speech and movement: Clear speech present Affect: Indifferent affect present and Blunted affect present Attitude: cooperative Insight: Fair insight present (Psych) Judgement: Limited judgement present (Psych) Results Labs 11/26/24 12:43 11/26/24 12:43 Labs: Abnormal lab results 11/26/24 11/26/24 11/26/24 Range/Units 12:42 12:43 16:00 WBC 12.2 H (4.5-10.0) K/mm3 RBC 3.91 L (4.6-6.20) M/mm3 Hgb 11.5 L (14.0-18.0) g/dL Hct 35.7 L (42.0-52.0) % MPV 11.5 H (7.4-10.4) fl Immature Gran % (Auto) 0.7 H (0-0.5) % Neut % (Auto) 90.7 H (45.5-73.1) % Lymph % (Auto) 2.8 L (18.3-44.2) % Lymph # (Auto) 0.34 L (0.9-3.2) K/mm3 [place] # (Auto) 0.7 H (0.1-0.6) K/mm3 Abs Immat Gran (auto) 0.08 H (0.00-0.031) K/mm3 Absolute Neuts (auto) 11.1 H (1.3-6.7) K/mm3 Sodium 134 L (137-145) mmol/L Chloride 89 L (98-107) mmol/L Anion Gap 21 H (4-12) mmol/L BUN 94 H D (9-20) mg/dL Creatinine 9.83 H (0.7-1.3) mg/dL Estimated GFR 6 L (59 - ) Glucose 123 H (65-110) mg/dL POC Capillary Glucose 113 H (65-105) mg/dl Hemoglobin A1c 5.9 H (<5.7) % Lactic Acid 2.3 H (0.7-2.0) mmol/L Total Bilirubin 1.7 H (0.2-1.3) mg/dL AST 150 H (17-59) U/L ALT 282 H (6-50) U/L Alkaline Phosphatase 135 H (38-126) U/L C-Reactive Protein 25.5 H (<1.0) mg/dL Diabetes panel 11/26/24 11/26/24 Range/Units 12:42 12:43 Sodium 134 L (137-145) mmol/L Potassium 4.4 (3.4-5.0) mmol/L Chloride 89 L (98-107) mmol/L Carbon Dioxide 24 (22-30) mmol/L BUN 94 H D (9-20) mg/dL Creatinine 9.83 H (0.7-1.3) mg/dL Glucose 123 H (65-110) mg/dL Hemoglobin A1c 5.9 H (<5.7) % Calcium 8.4 (8.4-10.2) mg/dL AST 150 H (17-59) U/L ALT 282 H (6-50) U/L Alkaline Phosphatase 135 H (38-126) U/L Total Protein 7.8 (6.3-8.2) g/dL Albumin 4.0 (3.5-5.1) g/dL Calcium panel 11/26/24 Range/Units 12:43 Calcium 8.4 (8.4-10.2) mg/dL Albumin 4.0 (3.5-5.1) g/dL Pituitary panel 11/26/24 Range/Units 12:43 Sodium 134 L (137-145) mmol/L Potassium 4.4 (3.4-5.0) mmol/L Chloride 89 L (98-107) mmol/L Carbon Dioxide 24 (22-30) mmol/L BUN 94 H D (9-20) mg/dL Creatinine 9.83 H (0.7-1.3) mg/dL Glucose 123 H (65-110) mg/dL Calcium 8.4 (8.4-10.2) mg/dL Adrenal panel 11/26/24 Range/Units 12:43 Sodium 134 L (137-145) mmol/L Potassium 4.4 (3.4-5.0) mmol/L Chloride 89 L (98-107) mmol/L Carbon Dioxide 24 (22-30) mmol/L BUN 94 H D (9-20) mg/dL Creatinine 9.83 H (0.7-1.3) mg/dL Glucose 123 H (65-110) mg/dL Calcium 8.4 (8.4-10.2) mg/dL Total Bilirubin 1.7 H (0.2-1.3) mg/dL AST 150 H (17-59) U/L ALT 282 H (6-50) U/L Alkaline Phosphatase 135 H (38-126) U/L Total Protein 7.8 (6.3-8.2) g/dL Albumin 4.0 (3.5-5.1) g/dL liver function test noted to be elevated. This is new. All other labs normal.
[2024-11-26 19:26] LABS: MRSA (PCR) DETECTED (NOT DETECTE)
[2024-11-26] MEDS: carvediloL 25 MG TABLET PO (21:38)
[2024-11-27] VITALS (27 sets, daily range): BP systolic 97–154; BP diastolic 49–76; PULSE 52–72; RESP 18–20; TEMP 36.6–37.2; O2SAT 93–97
--- NOTE | 2024-11-27 | ECHO_ITS ---
Patient Info Name: Savage Yun Age: 59 years : 1965 Gender: Male Ht: 71 in Wt: 201 lbs BSA: 2.15 m2 HR: 69 bpm BP: 148 / 68 mmHg Heart Rhythm: Sinus Rhythm Technical Quality: Fair Exam Date: 11/27/2024 2:20 PM Patient Status: I Admit Date: 11/26/2024 Exam Type: CA echo dop color flow w con Complete two-dimensional, color flow and Doppler transthoracic echocardiogram is performed with contrast to opacify the left ventricle and to improve the deliniation of the left ventricle endocardial borders. Staff Referring Physician: Perfecto Samaniego Network Security Officer: Sirena Pires Attending Provider: Corby Aly Contrast/Agitated Saline Contrast/Ag. Saline: Definity Amount: 2.00 ml Administered By: Sirena Pires Existing IV Access: Yes IV Access Condition: patent with no signs of infiltration Summary 1. Left ventricular chamber dimension is normal. 2. Left ventricular systolic function is normal, estimated at 60-65. 3. There is moderately increased left ventricular wall thickness. 4. The left ventricular diastolic function is abnormal. 5. Left atrial chamber dimension is mildly enlarged. 6. There is mild aortic valve regurgitation. 7. Abnormal appearing aortic valve and likely functionally bicuspid. Heavily calcified and at least moderate aortic stenosis and probably severe. Aortic valve is not well interrogated. The mean gradient of 44 mmHg is consistent with severe aortic stenosis. Cardiology follow-up and further anatomical evaluation and assessment of the aortic stenosis is important and should be performed. 8. There is mild to moderate mitral valve regurgitation. 9. The mitral valve annulus is moderately calcified. 10. There is mild tricuspid valve regurgitation. 11. There is mild pulmonic regurgitation. Left Ventricle Left ventricular chamber dimension is normal. Left ventricular systolic function is normal, estimated at 60-65. There is moderately increased left ventricular wall thickness. The left ventricular diastolic function is abnormal. Right Ventricle Right ventricular chamber dimension is normal. Right ventricular systolic function is normal. Left Atria Left atrial chamber dimension is mildly enlarged. Right Atria Right atrial chamber dimension is normal. Atrial Septum Intact interatrial septum visualized by color flow imaging. Aortic Valve There is mild aortic valve regurgitation. Abnormal appearing aortic valve and likely functionally bicuspid. Heavily calcified and at least moderate aortic stenosis and probably severe. Aortic valve is not well interrogated. The mean gradient of 44 mmHg is consistent with severe aortic stenosis. Cardiology follow-up and further anatomical evaluation and assessment of the aortic stenosis is important and should be performed. Pulmonic Valve The pulmonic valve is normal. There is no pulmonic valve stenosis. There is mild pulmonic regurgitation. Mitral Valve There is no mitral valve stenosis. There is mild to moderate mitral valve regurgitation. The mitral valve annulus is moderately calcified. Tricuspid Valve The tricuspid valve leaflets are normal. There is no significant tricuspid valve stenosis. There is mild tricuspid valve regurgitation. No pulmonary hypertension, estimated pulmonary arterial systolic pressure is 27 mmHg. Pericardium/Pleural The pericardium appears normal. There is trivial pericardial effusion. Inferior Vena Cava Normal inferior vena cava with >50% collapse upon inspiration consistent with normal right atrial pressure, 5 mmHg. Aorta The aortic root size at the sinus of Valsalva is normal. Left Ventricular Outflow Tract Name Value Normal LVOT 2D LVOT Diameter 2.2 cm LVOT Doppler LVOT Peak Velocity 187 cm/s LVOT Peak Gradient 10 mmHg LVOT Mean Gradient 6 mmHg LVOT VTI 35 cm LVOT VTI/AV VTI Ratio 0.4 LVOT Stroke Volume 136 ml LVOT CO 7.8 l/min LVOT CI 3.6 l/min/m2 Pulmonic Valve Name Value Normal RVOT Doppler RVOT Peak Velocity 103 cm/s RVOT Peak Gradient 4 mmHg PV Doppler PV Peak Velocity 137 cm/s PV Peak Gradient 8 mmHg Mitral Valve Name Value Normal MV Doppler MV Peak Gradient 8 mmHg MV Mean Gradient 3 mmHg MV Area (Cont Eq VTI) 2.4 cm2 MV Diastolic Function MV E Peak Velocity 121 cm/s MV A Peak Velocity 115 cm/s MV E/A 1.1 MV Decel Time (PW) 299 ms MV Annular TDI MV E/e' (Septal) 21.5 MV E/e' (Lateral) 11.1 MV E/e' (Average) 16.3 Tricuspid Valve Name Value Normal TV Regurgitation Doppler TR Peak Velocity 236 cm/s TR Peak Gradient 22 mmHg Estimated PAP/RSVP RA Pressure 5 mmHg <=5 PA Systolic Pressure 27 mmHg <36 RV Systolic Pressure 27 mmHg <36 Aortic Valve Name Value Normal AV Doppler AV Peak Velocity 442 cm/s AV Peak Gradient 42 mmHg AV Mean Gradient 44 mmHg AV VTI 87 cm AV Area (Cont Eq VTI) 1.6 cm2 >=3.0 AV Area (Cont Eq Donovan) 1.6 cm2 AV DI (Donovan) 0.42 AV Regurgitation 2D LVOT Area 3.9 cm2 Ventricles Name Value Normal LV Dimensions 2D/MM IVS Diastolic Thickness (2D) 1.4 cm 0.6-1.0 LVID Diastole (2D) 4.3 cm 4.2-5.8 LVIW Diastolic Thickness (2D) 1.6 cm 0.6-1.0 LVID Systole (2D) 3.4 cm 2.5-4.0 LVOT Diameter 2.2 cm LV Mass (2D Cubed) 262.61 g 88.00-224.00 LV Mass Index (2D Cubed) 122 g/m2 49-115 Relative Wall Thickness (2D) 0.75 <=0.42 LV Fractional Shortening/Ejection Fraction 2D/MM LV Fractional Shortening (2D) 23 % 25-43 LV EF (2D Teichholz) 46 % LV Diastolic Volume (4C MOD) 233 ml LV EF (4C MOD) 55 % LV Diastolic Volume (2C MOD) 222 ml LV EF (2C MOD) 70 % LV Diastolic Volume (BP MOD) 231 ml 62-150 LV Diastolic Volume Index (BP MOD) 107 ml/m2 34-74 LV Systolic Volume (BP MOD) 85 ml 21-61 LV Systolic Volume Index (BP MOD) 39 ml/m2 11-31 LV EF (BP MOD) 63 % 52-72 LV Diastolic Length (4C) 10.1 cm LV Systolic Length (4C) 8.4 cm LV Stroke Volume (4C MOD) 127 ml Atria Name Value Normal LA Dimensions LA Volume (4C A-L) 110 ml LA Volume (BP A-L) 90 ml RA Dimensions RA Systolic Major [place] Length (4C) 6.2 cm 2.1-2.7 RA Area (4C) 15.3 cm2 <=18.0 Report Signatures
[2024-11-27] MEDS: LACTATED RINGERS 1,000 ML 120 ML IV CONT (01:25)
[2024-11-27 05:21] LABS: Basophils Percent Auto 0.2 % (0.2-1.2); Eosinophils Percent Auto 0.3 % (0-4.4); Hematocrit 27.2 % (42.0-52.0); Hemoglobin 8.9 g/dL (14.0-18.0); Immature Granulocyte Absolute 0.09 K/mm3 (0.00-0.031); Immature Granulocyte Percent A 0.7 % (0-0.5); Lymphocytes Absolute Auto 0.65 K/mm3 (0.9-3.2); Lymphocytes Percent Auto 5.3 % (18.3-44.2); Mean Corpuscular HGB Conc 32.7 g/dl (32-36); Mean Corpuscular Hemoglobin 29.3 pg (26-34); Mean Corpuscular Volume 89.5 fl (80-100); Mean Platelet Volume 10.7 fl (7.4-10.4); Monocytes Absolute Auto 1.2 K/mm3 (0.1-0.6); Monocytes Percent Auto 9.6 % (2.6-8.5); Neutrophils Absolute Auto 10.3 K/mm3 (1.3-6.7); Neutrophils Percent Auto 83.9 % (45.5-73.1); Platelet Count Result 172 k/mm3 (150-375); Red Blood Count 3.04 M/mm3 (4.6-6.20); Red Cell Distribution Width 13.8 % (11.5-14.5); White Blood Count 12.3 K/mm3 (4.5-10.0)
[2024-11-27 05:44] LABS: Anion Gap 16 mmol/L (4-12); Blood Urea Nitrogen 101 mg/dL (9-20); Calcium 7.3 mg/dL (8.4-10.2); Carbon Dioxide 22 mmol/L (22-30); Chloride 93 mmol/L (98-107); Estimated CRCL calculation 8 ml/min; Estimated Glomerular Filt Rate 6; Glucose 108 mg/dL (65-110); Potassium 3.8 mmol/L (3.4-5.0); Sodium 131 mmol/L (137-145)
[2024-11-27 05:47] LABS: Vancomycin Trough 17.7 ug/mL (10.0-20.0)
[2024-11-27 06:24] LABS: Hepatitis B Surface Antigen Negative (Negative)
[2024-11-27 06:29] LABS: Glucose Point of Care 149 mg/dl (65-105)
--- NOTE | 2024-11-27 06:40 | PM.PNGS ---
Progress Note: A&P Assessment and Plan (1) Diabetic infection of left foot: Code(s): E11.628 - Type 2 diabetes mellitus with other skin complications; L08.9 - Local infection of the skin and subcutaneous tissue, unspecified Status: Acute Assessment and Plan: Stable if not slightly better. Erythema on foot has decreased but toe still black and and foul smelling. 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 Subjective Subjective Date/Time Seen: 11/27/24 06:41 Patient reports: no new complaints, feels better and afebrile Exam Const: General: comfortable and awake Extrem: Right lower extremity: foot (Less erythema on dorsum of foot, no change in toe) Details: vascular exam Details: normal capillary refill; dorsalis pedis pulse absent, posterior tibial pulse absent, not cool and no cyanosis; no tenderness, no ecchymosis and no crepitus Objective Data Vital Signs Vital Signs: Vital Signs - 24 hr 11/26/24 11:28 11/26/24 13:58 11/26/24 14:42 Temperature 36.8 C Pulse Rate 69 69 71 Respiratory Rate 18 18 16 Blood Pressure 140/88 165/72 H 168/81 H Pulse Oximetry 97 97 Oxygen Delivery Room Air 11/26/24 15:17 11/26/24 16:00 11/26/24 21:30 Temperature Pulse Rate 70 70 Respiratory Rate 18 18 Blood Pressure 162/79 H Pulse Oximetry 96 96 Oxygen Delivery Room Air Room Air 11/26/24 21:30 11/26/24 21:37 11/26/24 21:38 Temperature 36.6 C Pulse Rate 76 69 69 Respiratory Rate 18 Blood Pressure 154/64 H Pulse Oximetry 92 Oxygen Delivery 11/27/24 00:00 11/27/24 04:00 11/27/24 05:43 Temperature 36.6 C Pulse Rate 64 72 64 Respiratory Rate 18 Blood Pressure 154/74 H Pulse Oximetry 94 Oxygen Delivery Intake/Output Intake/Output: Intake & Output 11/24/24 11/25/24 11/26/24 11/27/24 23:59 23:59 23:59 23:59 Intake Total 1150 1450 Balance 1150 1450 Meds/Results Medications: Active Medications Generic Name Dose Route Start Last Admin Trade Name Freq PRN Reason Stop Dose Admin Acetaminophen 650 mg 11/26/24 14:10 Acetaminophen 325 Mg Tablet PO Q4H PRN Mild Pain (1-3) or Fever Amlodipine Besylate 10 mg 11/27/24 09:00 Amlodipine Besylate 10 Mg Tablet PO DAILY [facility] Atorvastatin Calcium 80 mg 11/27/24 09:00 Atorvastatin 40 Mg Tablet PO DAILY [facility] Carvedilol 25 mg 11/26/24 21:00 11/26/24 21:38 Carvedilol 25 Mg Tablet PO 25 mg Q12HR [facility] Administration Clopidogrel Bisulfate 75 mg 11/27/24 09:00 Clopidogrel Bisulfate 75 Mg Tablet PO DAILY [facility] Dextrose 12.5 gm 11/26/24 16:51 Dextrose 50% 25 Gm/50 Ml Syringe IV PUSH PRN PRN Hypoglycemia Protocol Docusate Sodium 100 mg 11/26/24 17:00 11/26/24 18:10 Docusate Sodium 100 Mg Capsule PO 100 mg BID L[facility]IAN Administration Glucagon 1 mg 11/26/24 16:51 Glucagon For Inj 1 Mg Vial IM PRN PRN Hypoglycemia Protocol Glucose 15 gm 11/26/24 16:51 Glucose Oral Gel 15 Gm Of Glucse In 37.5 Gm Tube PO PRN PRN Hypoglycemia Protocol Hydralazine HCl 50 mg 11/26/24 17:00 11/26/24 17:53 Hydralazine Hcl 50 Mg Tablet PO 50 mg TID [facility] Administration Lactated Ringer's 1,000 mls @ 120 mls/hr 11/26/24 14:15 11/27/24 01:25 Lr - Lactated Ringers Iv IV CONT 120 mls/hr .Q8H20M [facility] Administration Dextrose 1,000 mls @ 100 mls/hr 11/26/24 16:51 Dextrose 5% 1,000 Ml IVPB PRN PRN Hypoglycemia Protocol Insulin Aspart 2 - 5 units 11/27/24 08:00 Insulin Aspart (*Bkc) 100 Units/Ml SUB-Q TIDWM [facility] Protocol Ondansetron HCl 4 mg 11/26/24 14:10 Ondansetron Inj 4 Mg/2 Ml Vial IV PUSH Q4H PRN Nausea Vancomycin HCl 1 each 11/26/24 13:16 Vancomycin For Hemodialysis IVPB PRN PRN Vancomycin Protocol Radiology Results: ITS Impressions Foot X-Ray 11/26/24 12:58 Impression: 1: Moderate soft tissue swelling of the second digit. The distal phalanx not well visualized. Cannot exclude osteomyelitis. 2: Extra-articular fracture left fifth proximal phalanx. Duplex Scan Lower Extremity Artery 11/26/24 13:53 IMPRESSION: 1. No evident hemodynamically significant stenosis either by follow-up elevation of peak systolic velocities or by direct visualization grayscale imaging with brisk systolic upstrokes arteries of the bilateral lower limbs. Labs Labs: Laboratory Results - last 24 hr 11/26/24 11/26/24 11/26/24 12:42 12:43 16:00 WBC 12.2 H RBC 3.91 L Hgb 11.5 L Hct 35.7 L MCV 91.3 MCH 29.4 MCHC 32.2 RDW 13.7 Plt Count 219 MPV 11.5 H Immature Gran % (Auto) 0.7 H Neut % (Auto) 90.7 H Lymph % (Auto) 2.8 L [place] % (Auto) 5.5 Eos % (Auto) 0.1 Baso % (Auto) 0.2 Lymph # (Auto) 0.34 L [place] # (Auto) 0.7 H Eos # (Auto) 0.0 Baso # (Auto) 0.0 Abs Immat Gran (auto) 0.08 H Absolute Neuts (auto) 11.1 H Absolute Nucleated RBC 0.000 Nucleated RBC % 0.0 PT 13.9 INR 1.1 APTT 29.6 Sodium 134 L Potassium 4.4 Chloride 89 L Carbon Dioxide 24 Anion Gap 21 H BUN 94 H D Creatinine 9.83 H Estim Creat Clear Calc 8 Estimated GFR 6 L Glucose 123 H POC Capillary Glucose 113 H Hemoglobin A1c 5.9 H Lactic Acid 2.3 H Calcium 8.4 Total Bilirubin 1.7 H AST 150 H ALT 282 H Alkaline Phosphatase 135 H C-Reactive Protein 25.5 H Total Protein 7.8 Albumin 4.0 Nasal MRSA (PCR) Vancomycin Trough Hep Bs Antigen 11/26/24 11/26/24 11/26/24 16:46 17:53 21:42 WBC RBC Hgb Hct MCV MCH MCHC RDW Plt Count MPV Immature Gran % (Auto) Neut % (Auto) Lymph % (Auto) [place] % (Auto) Eos % (Auto) Baso % (Auto) Lymph # (Auto) [place] # (Auto) Eos # (Auto) Baso # (Auto) Abs Immat Gran (auto) Absolute Neuts (auto) Absolute Nucleated RBC Nucleated RBC % PT INR APTT Sodium Potassium Chloride Carbon Dioxide Anion Gap BUN Creatinine Estim Creat Clear Calc Estimated GFR Glucose POC Capillary Glucose 149 H Hemoglobin A1c Lactic Acid 1.6 Calcium Total Bilirubin AST ALT Alkaline Phosphatase C-Reactive Protein Total Protein Albumin Nasal MRSA (PCR) Detected A* Vancomycin Trough Hep Bs Antigen 11/27/24 05:12 WBC 12.3 H RBC 3.04 L Hgb 8.9 L Hct 27.2 L MCV 89.5 MCH 29.3 MCHC 32.7 RDW 13.8 Plt Count 172 MPV 10.7 H Immature Gran % (Auto) 0.7 H Neut % (Auto) 83.9 H Lymph % (Auto) 5.3 L [place] % (Auto) 9.6 H Eos % (Auto) 0.3 Baso % (Auto) 0.2 Lymph # (Auto) 0.65 L [place] # (Auto) 1.2 H Eos # (Auto) 0.0 Baso # (Auto) 0.0 Abs Immat Gran (auto) 0.09 H Absolute Neuts (auto) 10.3 H Absolute Nucleated RBC 0.000 Nucleated RBC % 0.0 PT INR APTT Sodium 131 L Potassium 3.8 Chloride 93 L Carbon Dioxide 22 Anion Gap 16 H BUN 101 H* Creatinine 9.84 H Estim Creat Clear Calc 8 Estimated GFR 6 L Glucose 108 POC Capillary Glucose Hemoglobin A1c Lactic Acid Calcium 7.3 L Total Bilirubin AST ALT Alkaline Phosphatase C-Reactive Protein Total Protein Albumin Nasal MRSA (PCR) Vancomycin Trough 17.7 Hep Bs Antigen Negative
[2024-11-27 06:42] LABS: Hepatitis B Surface Anti Res Negative
--- NOTE | 2024-11-27 07:53 | PM.IMPN ---
Progress Note: A&P Assessment and Plan (1) Bacteremia: Code(s): R78.81 - Bacteremia Status: Acute Assessment and Plan: Blood cultures obtained 11/26: gram positive cocci in clusters Patient remains on vancomycin Echo ordered to rule out endocarditis Repeat blood cultures on 11/28 (2) Diabetic infection of left foot: Code(s): E11.628 - Type 2 diabetes mellitus with other skin complications; L08.9 - Local infection of the skin and subcutaneous tissue, unspecified Status: Acute Assessment and Plan: Erythema and edema to the dorsal aspect of the left foot extending to the ankle. Unable to palpate DP pulses. Black foul smelling 2nd toe of the left foot. - Antibiotics: vancomycin (pharmacy to dose) and cefepime 2g following dialysis - Foot XR left showed moderate soft tissue swelling of the second digit with poor visualization fo the distal phalanx. Osteomyelitis cannot be rule out. Also extra articular fracture to the left fifth proximal phalanx noted. - Duplex showed No evident hemodynamically significant stenosis either by follow-up elevation of peak systolic velocities or by direct visualization grayscale imaging with brisk systolic upstrokes arteries of the bilateral lower limbs. - Monitor vital signs, I&Os, neuro status and patient is a fall risk - Monitor serum electrolytes, CBC, cultures, WBC and temp curve - Surgery consulted Agree with broad spectrum antibiotics Patient will likely require 2nd toe amputation, holding plavix (3) Gangrenous toe: Code(s): I96 - Gangrene, not elsewhere classified Status: Acute Assessment and Plan: See plan above #1 diabetic infection of left foot Surgery consulted patient will likely require 2nd toe amputation. continue IV antibiotics. (4) Type 2 diabetes mellitus: Code(s): E11.9 - Type 2 diabetes mellitus without complications Status: Acute Assessment and Plan: - hypoglycemia protocol - POC blood glucose ACHS - home medication - none - correct regimen ordered - low dose TIDWM and HS - A1C 5.9 (5) Anemia: Code(s): D64.9 - Anemia, unspecified Status: Chronic Assessment and Plan: Chronic, likely secondary to ESRD H/H 11.5/35.7 on admission, 8.9/27.2 on am labs Given epoetin 10,000 units x1 on 11/27 No signs of active bleeding (6) Carotid artery disease: Qualifiers: Carotid artery disease type: stenosis Laterality: unspecified laterality Qualified Code(s): I65.29 - Occlusion and stenosis of unspecified carotid artery Code(s): I77.9 - Disorder of arteries and arterioles, unspecified Status: Chronic Assessment and Plan: Chronic, currently holding plavix for plan of toe amputation with surgery (7) Hypertension: Qualifiers: Hypertension type: unspecified Qualified Code(s): I10 - Essential (primary) hypertension Code(s): I10 - Essential (primary) hypertension Status: Chronic Assessment and Plan: Chronic, continue home medications - amlodipine 10 mg daily - coreg 25 mg BID - hydralazine 50 mg TID - blood pressures stable, continue to [facility] (8) End stage renal disease on dialysis: Code(s): N18.6 - End stage renal disease; Z99.2 - Dependence on renal dialysis Status: Acute Assessment and Plan: ESRD on dialysis [facility] Nephrology consulted (9) Heart failure with preserved ejection fraction: Qualifiers: Heart failure chronicity: unspecified Qualified Code(s): I50.30 - Unspecified diastolic (congestive) heart failure Code(s): I50.30 - Unspecified diastolic (congestive) heart failure Status: Chronic Assessment and Plan: Chronic, does not appear in acute exacerbation Echo 07/2023 showed LVEF 40-45% with grade 2 diastolic dysfunction Time Spent With Patient Time with patient: 25 - 35 minutes Subjective Date/time seen: 11/27/24 07:53 Interval history: 59 year old male with past medical history of HTN, CAD, CVA, CHF, and ESRD on dialysis presents to the hospital with complaint of a black left toe. Patient is pleasant lying comfortably in bed getting dialysis. He states he noticed his wound on friday. He denies associated pain. He has no other complaints at this time denying chest pain, shortness of breath, palpitations, nausea/vomiting and abdominal pain. Review of Systems Review of Systems: All systems reviewed & are unremarkable except as noted in HPI and below Exam Narrative: AF HR 65 RR 18 Spo2 94 BP 122/53 General: male in no acute respiratory distress who is nontoxic appearing, lying semi recumbent in bed. HEENT: Normocephalic. Atraumatic. Extraocular movement intact. Sclera clear and anicteric. No facial asymmetry. Chest: Lungs are clear to auscultation bilaterally. CV: Heart was regular rate and rhythm. S1/S2. No murmurs, gallops, or rubs. Abd: Abdomen was soft. Nontender. Nondistended. Positive bowel sounds. No organomegaly or masses. Ext: Erythema and edema to the dorsal aspect of the left foot extending to the ankle. Unable to palpate DP pulses. Black foul smelling 2nd toe of the left foot. Neuro: Patient is alert and oriented x4. Speech is clear. Objective Data Vital Signs Vital Signs: Vital Signs - 24 hr 11/26/24 11:28 11/26/24 13:58 11/26/24 14:42 Temperature 98.2 F Pulse Rate 69 69 71 Respiratory Rate 18 18 16 Blood Pressure 140/88 165/72 H 168/81 H Pulse Oximetry 97 97 Oxygen Delivery Room Air 11/26/24 15:17 11/26/24 16:00 11/26/24 21:30 Temperature Pulse Rate 70 70 Respiratory Rate 18 18 Blood Pressure 162/79 H Pulse Oximetry 96 96 Oxygen Delivery Room Air Room Air 11/26/24 21:30 11/26/24 21:37 11/26/24 21:38 Temperature 98 F Pulse Rate 76 69 69 Respiratory Rate 18 Blood Pressure 154/64 H Pulse Oximetry 92 Oxygen Delivery 11/27/24 00:00 11/27/24 04:00 11/27/24 05:43 Temperature 98 F Pulse Rate 64 72 64 Respiratory Rate 18 Blood Pressure 154/74 H Pulse Oximetry 94 Oxygen Delivery Intake/Output Intake/Output: Intake & Output 11/24/24 11/25/24 11/26/24 11/27/24 23:59 23:59 23:59 23:59 Intake Total 1150 1450 Balance 1150 1450 Meds/Results Medications: Active Medications Generic Name Dose Route Start Last Admin Trade Name Freq PRN Reason Stop Dose Admin Acetaminophen 650 mg 11/26/24 14:10 Acetaminophen 325 Mg Tablet PO Q4H PRN Mild Pain (1-3) or Fever Amlodipine Besylate 10 mg 11/27/24 09:00 Amlodipine Besylate 10 Mg Tablet PO DAILY [facility] Atorvastatin Calcium 80 mg 11/27/24 09:00 Atorvastatin 40 Mg Tablet PO DAILY [facility] Carvedilol 25 mg 11/26/24 21:00 11/26/24 21:38 Carvedilol 25 Mg Tablet PO 25 mg Q12HR [facility] Administration Clopidogrel Bisulfate 75 mg 11/27/24 09:00 Clopidogrel Bisulfate 75 Mg Tablet PO DAILY [facility] Dextrose 12.5 gm 11/26/24 16:51 Dextrose 50% 25 Gm/50 Ml Syringe IV PUSH PRN PRN Hypoglycemia Protocol Docusate Sodium 100 mg 11/26/24 17:00 11/26/24 18:10 Docusate Sodium 100 Mg Capsule PO 100 mg BID LILIAN Administration Epoetin Romain-epbx 10,000 units 11/27/24 18:53 Epoetin Romain-Epbx 10,000 Units/Ml Vial IV PUSH 11/27/24 18:54 ONCE ONE Glucagon 1 mg 11/26/24 16:51 Glucagon For Inj 1 Mg Vial IM PRN PRN Hypoglycemia Protocol Glucose 15 gm 11/26/24 16:51 Glucose Oral Gel 15 Gm Of Glucse In 37.5 Gm Tube PO PRN PRN Hypoglycemia Protocol Hydralazine HCl 50 mg 11/26/24 17:00 11/26/24 17:53 Hydralazine Hcl 50 Mg Tablet PO 50 mg TID LILIAN Administration Lactated Ringer's 1,000 mls @ 120 mls/hr 11/26/24 14:15 11/27/24 01:25 Lr - Lactated Ringers Iv IV CONT 120 mls/hr .Q8H20M [facility] Administration Dextrose 1,000 mls @ 100 mls/hr 11/26/24 16:51 Dextrose 5% 1,000 Ml IVPB PRN PRN Hypoglycemia Protocol Albumin Human 50 mls @ 999 mls/hr 11/27/24 06:51 Albutein IVPB 12/27/24 06:50 Q10M PRN HYPOTENSION Insulin Aspart 2 - 5 units 11/27/24 08:00 Insulin Aspart (*Bkc) 100 Units/Ml SUB-Q TIDWM [facility] Protocol Ondansetron HCl 4 mg 11/26/24 14:10 Ondansetron Inj 4 Mg/2 Ml Vial IV PUSH Q4H PRN Nausea Vancomycin HCl 1 each 11/26/24 13:16 Vancomycin For Hemodialysis IVPB PRN PRN Vancomycin Protocol Radiology Results: ITS Impressions Foot X-Ray 11/26/24 12:58 Impression: 1: Moderate soft tissue swelling of the second digit. The distal phalanx not well visualized. Cannot exclude osteomyelitis. 2: Extra-articular fracture left fifth proximal phalanx. Duplex Scan Lower Extremity Artery 11/26/24 13:53 IMPRESSION: 1. No evident hemodynamically significant stenosis either by follow-up elevation of peak systolic velocities or by direct visualization grayscale imaging with brisk systolic upstrokes arteries of the bilateral lower limbs. Labs Labs: Laboratory Results - last 24 hr 11/26/24 11/26/24 11/26/24 12:42 12:43 16:00 WBC 12.2 H RBC 3.91 L Hgb 11.5 L Hct 35.7 L MCV 91.3 MCH 29.4 MCHC 32.2 RDW 13.7 Plt Count 219 MPV 11.5 H Immature Gran % (Auto) 0.7 H Neut % (Auto) 90.7 H Lymph % (Auto) 2.8 L [place] % (Auto) 5.5 Eos % (Auto) 0.1 Baso % (Auto) 0.2 Lymph # (Auto) 0.34 L [place] # (Auto) 0.7 H Eos # (Auto) 0.0 Baso # (Auto) 0.0 Abs Immat Gran (auto) 0.08 H Absolute Neuts (auto) 11.1 H Absolute Nucleated RBC 0.000 Nucleated RBC % 0.0 PT 13.9 INR 1.1 APTT 29.6 Sodium 134 L Potassium 4.4 Chloride 89 L Carbon Dioxide 24 Anion Gap 21 H BUN 94 H D Creatinine 9.83 H Estim Creat Clear Calc 8 Estimated GFR 6 L Glucose 123 H POC Capillary Glucose 113 H Hemoglobin A1c 5.9 H Lactic Acid 2.3 H Calcium 8.4 Total Bilirubin 1.7 H AST 150 H ALT 282 H Alkaline Phosphatase 135 H C-Reactive Protein 25.5 H Total Protein 7.8 Albumin 4.0 Nasal MRSA (PCR) Vancomycin Trough Hep Bs Antigen Hep Bs Antibody 11/26/24 11/26/24 11/26/24 16:46 17:53 21:42 WBC RBC Hgb Hct MCV MCH MCHC RDW Plt Count MPV Immature Gran % (Auto) Neut % (Auto) Lymph % (Auto) [place] % (Auto) Eos % (Auto) Baso % (Auto) Lymph # (Auto) [place] # (Auto) Eos # (Auto) Baso # (Auto) Abs Immat Gran (auto) Absolute Neuts (auto) Absolute Nucleated RBC Nucleated RBC % PT INR APTT Sodium Potassium Chloride Carbon Dioxide Anion Gap BUN Creatinine Estim Creat Clear Calc Estimated GFR Glucose POC Capillary Glucose 149 H Hemoglobin A1c Lactic Acid 1.6 Calcium Total Bilirubin AST ALT Alkaline Phosphatase C-Reactive Protein Total Protein Albumin Nasal MRSA (PCR) Detected A* Vancomycin Trough Hep Bs Antigen Hep Bs Antibody 11/27/24 05:12 WBC 12.3 H RBC 3.04 L Hgb 8.9 L Hct 27.2 L MCV 89.5 MCH 29.3 MCHC 32.7 RDW 13.8 Plt Count 172 MPV 10.7 H Immature Gran % (Auto) 0.7 H Neut % (Auto) 83.9 H Lymph % (Auto) 5.3 L [place] % (Auto) 9.6 H Eos % (Auto) 0.3 Baso % (Auto) 0.2 Lymph # (Auto) 0.65 L [place] # (Auto) 1.2 H Eos # (Auto) 0.0 Baso # (Auto) 0.0 Abs Immat Gran (auto) 0.09 H Absolute Neuts (auto) 10.3 H Absolute Nucleated RBC 0.000 Nucleated RBC % 0.0 PT INR APTT Sodium 131 L Potassium 3.8 Chloride 93 L Carbon Dioxide 22 Anion Gap 16 H BUN 101 H* Creatinine 9.84 H Estim Creat Clear Calc 8 Estimated GFR 6 L Glucose 108 POC Capillary Glucose Hemoglobin A1c Lactic Acid Calcium 7.3 L Total Bilirubin AST ALT Alkaline Phosphatase C-Reactive Protein Total Protein Albumin Nasal MRSA (PCR) Vancomycin Trough 17.7 Hep Bs Antigen Negative Hep Bs Antibody Negative Quality VTE Prophylaxis VTE prophylaxis: mechanical ordered
[2024-11-27 07:57] LABS: Glucose Point of Care 113 mg/dl (65-105)
[2024-11-27] MEDS: ATORVASTATIN 40 MG TABLET 80 MG PO (08:20)
[2024-11-27] MEDS: EPOETIN ALFA-EPBX 10,000 UNITS/ML VIAL 10000 UNITS IV PUSH (10:55)
--- NOTE | 2024-11-27 11:15 | P.CONNP_ITS ---
Assessment and Plan Assessment and plan (1) End stage renal disease: Code(s): N18.6 - End stage renal disease Status: Chronic Assessment and Plan: * HD today * transition back to Fri/Fri/Friday schedule next week * follow electrolyses, volume status, and clearance * significant azotemia noted and likely due to infection + ongoing inflammation swecondary to wounds * kidney disease due to biopsy proven diabetes and hypertension along with vascular disease (CVA + hyperlipemia) (2) Gangrene of toe of left foot: Code(s): I96 - Gangrene, not elsewhere classified Status: Acute Assessment and Plan: * as noted by clinical exam * Surgery recommendations noted * will eventually need surgical intervention (amputation) * on IV antibiotics (3) Cellulitis of left foot: Code(s): L03.116 - Cellulitis of left lower limb Status: Acute Assessment and Plan: * as noted on presentation * likely a complication of diabetes and #2 * on antibiotics (4) Bacteremia: Code(s): R78.81 - Bacteremia Status: Acute Assessment and Plan: * as noted: * blood cultures (11/26): Gram positive cocci in clusters * presumably related to #2 and #3 * on antibiotics * follow repeat cultures (5) Anemia: Code(s): D64.9 - Anemia, unspecified Status: Chronic Assessment and Plan: * due to ESRD with worsening due to acute illness/infection * follow trend of H/H * Epogen with HD (6) Heart failure with preserved ejection fraction: Qualifiers: Heart failure chronicity: unspecified Qualified Code(s): I50.30 - Unspecified diastolic (congestive) heart failure Code(s): I50.30 - Unspecified diastolic (congestive) heart failure Status: Chronic Assessment and Plan: * appears compensated * fluid removal with dialysis to maintain euvolemia * contineu supportive therapy (7) Hypertension: Qualifiers: Hypertension type: unspecified Qualified Code(s): I10 - Essential (primary) hypertension Code(s): I10 - Essential (primary) hypertension Status: Chronic Assessment and Plan: * reasonable control at this time * known history of poor control at baseline * follow trend of hemodynamics (8) Diabetes: Qualifiers: Diabetes mellitus type: type 2 Diabetes mellitus lobsterman insulin use: without lobsterman use Diabetes mellitus complication status: with kidney complications Diabetes mellitus complication detail: with chronic kidney disease Chronic kidney disease stage: on chronic dialysis Qualified Code(s): E 11.22 - Type 2 diabetes mellitus with diabetic chronic kidney disease; N18.6 - End stage renal disease; Z99.2 - Dependence on renal dialysis Code(s): E11.9 - Type 2 diabetes mellitus without complications Status: Chronic Assessment and Plan: * follow accu-cheks * glycemic control per hospitalists I will continue follow patient with you while he remains hospitalized and make further recommendations as deemed necessary. Thank you for allowing me to participate in care this patient. L History of Present Illness Reason for Consult Consult date: 11/27/24 Reason for consult: end stage renal disease Chief Complaint Chief complaint: Toe Gangrene/Diabetic Foot Wound History of Present Illness Narrative: The patient is a 59-year-old male with past medical history as outlined below who presented to the ER due a black toe. The patient reports that he was changing his socks yesterday when he noted that his left second toe was black. Along with the darkened appearance, he also reports pus draining from the toe and was able to see the tip of bone on that toe as well. As he has not changed his sock in almost a week, he is not entirely clear how long his left second toe has been like that. He give no history of fevers, chills, nausea, vomiting, chest pain, shortness of breath or any other significant symptoms. Given his finding, he presented to the ER for further evaluation as opposed to going to his regularly scheduled dialysis treatment yesterday. Work-up and evaluation in the ER demonstrated the patient to be hemodynamically stable and in no apparent distress. Routine blood work demonstrated a WBC of 12.2, hemoglobin 11.5, sodium 134, chloride 89, anion gap 21, BUN 94, creatinine 9.83 GFR 6 lactic acid 2.3, AST 150, ALT 282, alkaline phos 135, and a CRP 25.5. X-ray of the left foot showed moderate soft tissue swelling of the second digit but the distal phalanx not well visualized so osteomuyelitis could not be excluded; extra-articular fracture left fifth proximal phalanx present as well. Subsequent lower extremity duplex scan showed no evident hemodynamically significant stenosis either by follow-up elevation of peak systolic velocities or by direct visualization grayscale imaging with brisk systolic upstrokes arteries of the bilateral lower limbs. EKG shows sinus rhythm with left anterior fascicular QTC 431. Surgery was consulted from the ER for wet gangrene of the left 2nd toe. After appropriate cultures were obtained, he was started on IV antibiotics and was subsequently admitted to the hospital. Since his admission, he is now noted to have positive blood cultures and remains on IV antibiotic therapy. Renal consultation was requested due to his end stage renal disease. The patient normally dialyzes on a Friday, Friday. Friday schedule at [facility] under my care. He was initated on renal replacement therapy/dialysis in late July 2023 due to ongoing progression of his baseline disease. The etiology of his kidney disease is biopsy-proven hypertensive and diabetic nephrosclerosis. He was briefly on peritoneal dialysis but did not like this treatment modality so transitioned back in-center hemodialysis. His last dialysis treatment was on Friday (November 24) although he apparently did miss his dialysis treatment on Friday (November 22) for unclear reasons and missed his scheduled treatment on Friday due to his ER visit yesterday. Currently, at the time my evaluation, he tolerating his dialysis treatment reasonably well (seen on HD at 11:00AM). Review of Systems 2 Review of Systems: As per HPI. [facility] Past Medical History Medical History Aortic stenosis mod to severe Tobacco abuse Elevated d-dimer Heart failure with preserved ejection fraction Echo in November 2022 showed normal LV size and function with an EF of 50 to 55%, mildly increased left ventricular wall thickness, and grade 2 diastolic dysfunction. 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 Cerebrovascular accident (02/2019) Anxiety Hyperlipidemia Hypertension Surgical History Surgical History History of cardiac catheterization (2019) History of colonoscopy with polypectomy Family History Family History Mother Carcinoma of colon Father Family history of diabetes mellitus in first degree relative Grandparent Diabetes mellitus Social History Social History Social History: Surrogate medical decision maker: Raina Yun, sibling. Code status: Do not resuscitate. Smoking packs per day: 0.5 Smoking cigarettes per day: 10.0 Years smoked: 40 Smoking pack-years: 20.00 Smoking status: Current every day smoker Alcohol intake: never Substance use: never Substance use type: does not use Do You Feel Safe in your Home?: Yes Lack of Transportation: YES Lack of Food: Never True Current Housing: I Have Housing Concerned About Future Housing: No Difficulty Paying Gas/Electric Bills: No Difficulty Paying for Meds: No Currently Unemployed: No Education: High School Diploma/GED Difficulty w/ Childcare or Family Care: No Living arrangements: with family Additional living arrangements comments: Lives in [place]. Has 4 children. Ret[employer]. Additional occupation/education comments: [employer]. Spiritual care concerns: No Meds Home Medications and Allergies Home Medications ?Medication ?Instructions ?Recorded ?Confirmed ?Type amlodipine 10 mg tablet 10 mg PO DAILY 01/25/22 11/26/24 History atorvastatin 80 mg tablet 80 mg PO DAILY 01/25/22 11/26/24 History carvedilol 25 mg tablet 25 mg PO BID 01/25/22 11/26/24 History clopidogrel 75 mg tablet 75 mg PO DAILY 01/25/22 11/26/24 History hydralazine 50 mg tablet 50 mg PO TID 08/11/23 11/26/24 History Allergies Allergy/AdvReac Type Severity Reaction Status Date / Time tree nut Allergy Intermediate Itching Verified 11/29/24 15:34 Penicillins Allergy Unknown Unknown Verified 11/29/24 15:34 Vital Signs Vital Signs Temp Pulse Resp BP Pulse Ox O2 Del Method 11/27/24 11:15 61 120/62 11/27/24 10:45 58 L 134/60 11/27/24 10:30 59 L 134/57 L 11/27/24 10:15 59 L 107/64 11/27/24 10:00 55 L 130/63 11/27/24 09:45 57 L 140/68 11/27/24 09:30 52 L 122/52 L 11/27/24 09:15 56 L 134/64 11/27/24 09:00 59 L 134/67 11/27/24 08:43 61 148/68 H 11/27/24 08:32 98.2 F 62 18 151/76 H 11/27/24 08:30 Room Air 11/27/24 08:04 59 L 11/27/24 05:43 98 F 64 18 154/74 H 94 11/27/24 04:00 72 11/27/24 00:00 64 11/26/24 21:38 69 11/26/24 21:37 98 F 69 18 154/64 H 92 11/26/24 21:30 76 11/26/24 21:30 Room Air Exam 2 Narrative: GENERAL APPEARANCE: well developed well nourished male in no acute distress HEENT: normocephalic, atraumatic, normal conjunctiva and sclera, nares patient NECK: no lymphadenopathy, thyromegaly, or JVD MOUTH: normal lips, teeth, and gums CARDIOVASCULAR: RRR, normal S1 and S2, no rub RESPIRATORY: clear to auscultation bilaterally ABDOMEN: soft, nontender, nondistended, positive bowel sounds present EXTREMITIES: no evidence of cyanosis, clubbing; left foot erythema with left 2nd toe gangrene NEUROLOGICAL: alert and oriented x 3; CN II - XII intact bilaterally; no focal deficits noted Results Lab Results 12/02/24 05:24 12/02/24 05:24 Lab results: Most recent lab results Calcium 7.3 mg/dL (8.4-10.2) L 11/27/24 05:12
[2024-11-27] MEDS: hydrALAZINE HCL 50 MG TABLET PO ×2 (13:20→17:25)
[2024-11-27] MEDS: carvediloL 25 MG TABLET PO ×2 (13:20→20:54)
[2024-11-27] MEDS: amLODIPine BESYLATE 10 MG TABLET PO (13:20)
[2024-11-27 13:21] LABS: Glucose Point of Care 149 mg/dl (65-105)
[2024-11-27] MEDS: ACETAMINOPHEN 325 MG TABLET 650 MG PO (13:21)
[2024-11-27] MEDS: PERFLUTREN LIPID MICROSPHERES 1.5 ML VIAL DILUTED TO 10 ML TOTAL VOLUME IV PUSH (14:45)
[2024-11-27] MEDS: CEFEPIME 2 GM/NS 50 ML BAG IVPB (16:08)
[2024-11-27 16:45] LABS: Glucose Point of Care 190 mg/dl (65-105)
[2024-11-27] MEDS: DOCUSATE SODIUM 100 MG CAPSULE PO (17:25)
[2024-11-27] MEDS: VANCOMYCIN 750 MG/NS 250 ML 750 MG/250 ML BAG 250 MG IVPB (17:25)
[2024-11-27 20:56] LABS: Glucose Point of Care 220 mg/dl (65-105)
[2024-11-28] VITALS (11 sets, daily range): BP systolic 132–135; BP diastolic 60–66; PULSE 64–72; RESP 18–20; TEMP 36.6–36.8; O2SAT 95–99
[2024-11-28 06:14] LABS: Basophils Percent Auto 0.2 % (0.2-1.2); Eosinophils Absolute Auto 0.1 K/mm3 (0-0.3); Eosinophils Percent Auto 0.7 % (0-4.4); Hematocrit 30.2 % (42.0-52.0); Hemoglobin 9.8 g/dL (14.0-18.0); Immature Granulocyte Absolute 0.27 K/mm3 (0.00-0.031); Immature Granulocyte Percent A 1.7 % (0-0.5); Lymphocytes Absolute Auto 0.82 K/mm3 (0.9-3.2); Lymphocytes Percent Auto 5.1 % (18.3-44.2); Mean Corpuscular HGB Conc 32.5 g/dl (32-36); Mean Corpuscular Hemoglobin 29.9 pg (26-34); Mean Corpuscular Volume 92.1 fl (80-100); Monocytes Absolute Auto 1.9 K/mm3 (0.1-0.6); Monocytes Percent Auto 11.6 % (2.6-8.5); Neutrophils Percent Auto 80.7 % (45.5-73.1); Platelet Count Result 169 k/mm3 (150-375); Red Blood Count 3.28 M/mm3 (4.6-6.20); Red Cell Distribution Width 13.9 % (11.5-14.5); White Blood Count 16.1 K/mm3 (4.5-10.0)
[2024-11-28 06:27] LABS: Alanine Aminotransferase 146 U/L (6-50); Albumin Level 3.1 g/dL (3.5-5.1); Alkaline Phosphatase 146 U/L (38-126); Anion Gap 11 mmol/L (4-12); Aspartate Amino Transferase 48 U/L (17-59); Blood Urea Nitrogen 55 mg/dL (9-20); Carbon Dioxide 26 mmol/L (22-30); Chloride 99 mmol/L (98-107); Estimated CRCL calculation 13 ml/min; Estimated Glomerular Filt Rate 9; Glucose 181 mg/dL (65-110); Potassium 3.8 mmol/L (3.4-5.0); Sodium 136 mmol/L (137-145); Total Protein 6.6 g/dL (6.3-8.2)
[2024-11-28 08:04] LABS: Glucose Point of Care 160 mg/dl (65-105)
--- NOTE | 2024-11-28 08:07 | P.PNIM_ITS ---
Progress Note: A&P Assessment and Plan (1) Bacteremia: Code(s): R78.81 - Bacteremia Status: Acute Assessment and Plan: Blood cultures obtained 11/26: staph aureus, sensitivities pending Patient remains on vancomycin Echo ordered to rule out endocarditis Repeat blood cultures on 11/28 pending (2) Diabetic infection of left foot: Code(s): E11.628 - Type 2 diabetes mellitus with other skin complications; L08.9 - Local infection of the skin and subcutaneous tissue, unspecified Status: Acute Assessment and Plan: Erythema and edema to the dorsal aspect of the left foot extending to the ankle. Unable to palpate DP pulses. Black foul smelling 2nd toe of the left foot. - Antibiotics: vancomycin (pharmacy to dose) and cefepime 2g following dialysis, started on Flagyl given possible anaerobic concern and increased WBC on am labs - Foot XR left showed moderate soft tissue swelling of the second digit with poor visualization fo the distal phalanx. Osteomyelitis cannot be rule out. Also extra articular fracture to the left fifth proximal phalanx noted. - Duplex showed No evident hemodynamically significant stenosis either by follow-up elevation of peak systolic velocities or by direct visualization grayscale imaging with brisk systolic upstrokes arteries of the bilateral lower limbs. - Monitor vital signs, I&Os, neuro status and patient is a fall risk - Monitor serum electrolytes, CBC, cultures, WBC and temp curve - Surgery consulted Agree with broad spectrum antibiotics Patient will likely require 2nd toe amputation, holding plavix Checked tele monitor and patient had intermittent PVCs yesterday, remains stable today. Will obtain a mag level. K WNL. (3) Gangrenous toe: Code(s): I96 - Gangrene, not elsewhere classified Status: Acute Assessment and Plan: See plan above #1 diabetic infection of left foot Surgery consulted patient will likely require 2nd toe amputation. continue IV antibiotics. (4) Type 2 diabetes mellitus: Code(s): E11.9 - Type 2 diabetes mellitus without complications Status: Acute Assessment and Plan: - hypoglycemia protocol - POC blood glucose ACHS - home medication - none - correct regimen ordered - low dose TIDWM and HS - A1C 5.9 (5) Anemia: Code(s): D64.9 - Anemia, unspecified Status: Chronic Assessment and Plan: Chronic, likely secondary to ESRD H/H 11.5/35.7 on admission, 9.8/30.2 on am labs Given epoetin 10,000 units x1 on 11/27 No signs of active bleeding (6) Carotid artery disease: Qualifiers: Carotid artery disease type: stenosis Laterality: unspecified laterality Qualified Code(s): I65.29 - Occlusion and stenosis of unspecified carotid artery Code(s): I77.9 - Disorder of arteries and arterioles, unspecified Status: Chronic Assessment and Plan: Chronic, currently holding plavix for plan of toe amputation with surgery (7) Hypertension: Qualifiers: Hypertension type: unspecified Qualified Code(s): I10 - Essential (primary) hypertension Code(s): I10 - Essential (primary) hypertension Status: Chronic Assessment and Plan: Chronic, continue home medications - amlodipine 10 mg daily - coreg 25 mg BID - hydralazine 50 mg TID - blood pressures stable, continue to montior (8) End stage renal disease on dialysis: Code(s): N18.6 - End stage renal disease; Z99.2 - Dependence on renal dialysis Status: Acute Assessment and Plan: ESRD on dialysis [facility] Nephrology consulted (9) Heart failure with preserved ejection fraction: Qualifiers: Heart failure chronicity: unspecified Qualified Code(s): I50.30 - Unspecified diastolic (congestive) heart failure Code(s): I50.30 - Unspecified diastolic (congestive) heart failure Status: Chronic Assessment and Plan: Chronic, does not appear in acute exacerbation Echo 07/2023 showed LVEF 40-45% with grade 2 diastolic dysfunction Time Spent With Patient Time with patient: 25 - 35 minutes Subjective Date/time seen: 11/28/24 08:07 Interval history: 59 year old male with past medical history of HTN, CAD, CVA, CHF, and ESRD on dialysis presents to the hospital with complaint of a black left toe. Patient is pleasant sitting up comfortably in bed with son at bedside. He states that he is tired but other than that has no complaints denying chest pain, shortness of breath, palpitations, nausea/vomiting, abdominal pain, and pain to the foot. Review of Systems Review of Systems: All systems reviewed & are unremarkable except as noted in HPI and below Exam Narrative: AF HR 64 RR 18 Spo2 95 BP 132/66 General: male in no acute respiratory distress who is nontoxic appearing, sitting up in bed. HEENT: Normocephalic. Atraumatic. Extraocular movement intact. Sclera clear and anicteric. No facial asymmetry. Chest: Lungs are clear to auscultation bilaterally. CV: Heart was regular rate and rhythm. S1/S2. No murmurs, gallops, or rubs. Abd: Abdomen was soft. Nontender. Nondistended. Positive bowel sounds. Ext: Erythema and edema to the dorsal aspect of the left foot extending to the ankle. Unable to palpate DP pulses. Black foul smelling 2nd toe of the left foot. Neuro: Patient is alert and oriented x4. Speech is clear. Objective Data Vital Signs Vital Signs: Vital Signs - 24 hr 11/27/24 08:30 11/27/24 08:32 11/27/24 08:43 Temperature 98.2 F Pulse Rate 62 61 Respiratory Rate 18 Blood Pressure 151/76 H 148/68 H Pulse Oximetry Oxygen Delivery Room Air 11/27/24 09:00 11/27/24 09:15 11/27/24 09:30 Temperature Pulse Rate 59 L 56 L 52 L Respiratory Rate Blood Pressure 134/67 134/64 122/52 L Pulse Oximetry Oxygen Delivery 11/27/24 09:45 11/27/24 10:00 11/27/24 10:15 Temperature Pulse Rate 57 L 55 L 59 L Respiratory Rate Blood Pressure 140/68 130/63 107/64 Pulse Oximetry Oxygen Delivery 11/27/24 10:30 11/27/24 10:45 11/27/24 11:15 Temperature Pulse Rate 59 L 58 L 61 Respiratory Rate Blood Pressure 134/57 L 134/60 120/62 Pulse Oximetry Oxygen Delivery 11/27/24 11:30 11/27/24 11:45 11/27/24 12:00 Temperature Pulse Rate 62 60 61 Respiratory Rate Blood Pressure 97/55 L 102/49 L 112/53 L Pulse Oximetry Oxygen Delivery 11/27/24 12:00 11/27/24 12:16 11/27/24 12:29 Temperature 98.3 F Pulse Rate 61 60 63 Respiratory Rate 18 Blood Pressure 113/49 L 122/53 L Pulse Oximetry Oxygen Delivery 11/27/24 13:20 11/27/24 14:00 11/27/24 16:04 Temperature Pulse Rate 65 63 64 Respiratory Rate 20 Blood Pressure 146/62 H Pulse Oximetry 97 Oxygen Delivery 11/27/24 20:50 11/27/24 20:50 11/27/24 20:54 Temperature Pulse Rate 69 70 Respiratory Rate Blood Pressure Pulse Oximetry Oxygen Delivery Room Air 11/27/24 21:23 11/27/24 22:00 11/28/24 00:00 Temperature 99.0 F Pulse Rate 66 65 Respiratory Rate 18 Blood Pressure 139/64 Pulse Oximetry 97 93 Oxygen Delivery Room Air 11/28/24 04:00 11/28/24 06:00 Temperature 98.2 F Pulse Rate 65 64 Respiratory Rate 18 Blood Pressure 132/66 Pulse Oximetry 95 Oxygen Delivery Intake/Output Intake/Output: Intake & Output 11/25/24 11/26/24 11/27/24 11/28/24 23:59 23:59 23:59 23:59 Intake Total 1150 3578 Output Total 1999 Balance 1150 1578 Meds/Results Medications: Active Medications Generic Name Dose Route Start Last Admin Trade Name Freq PRN Reason Stop Dose Admin Acetaminophen 650 mg 11/26/24 14:10 11/27/24 13:21 Acetaminophen 325 Mg Tablet PO 650 mg Q4H PRN Administration Mild Pain (1-3) or Fever Amlodipine Besylate 10 mg 11/27/24 09:00 11/27/24 13:20 Amlodipine Besylate 10 Mg Tablet PO 10 mg DAILY LILIAN Administration Atorvastatin Calcium 80 mg 11/27/24 09:00 11/27/24 08:20 Atorvastatin 40 Mg Tablet PO 80 mg DAILY LILIAN Administration Carvedilol 25 mg 11/26/24 21:00 11/27/24 20:54 Carvedilol 25 Mg Tablet PO 25 mg Q12HR LILIAN Administration Clopidogrel Bisulfate 75 mg 11/27/24 09:00 Clopidogrel Bisulfate 75 Mg Tablet PO DAILY LILIAN Dextrose 12.5 gm 11/26/24 16:51 Dextrose 50% 25 Gm/50 Ml Syringe IV PUSH PRN PRN Hypoglycemia Protocol Docusate Sodium 100 mg 11/26/24 17:00 11/27/24 17:25 Docusate Sodium 100 Mg Capsule PO 100 mg BID LILIAN Administration Glucagon 1 mg 11/26/24 16:51 Glucagon For Inj 1 Mg Vial IM PRN PRN Hypoglycemia Protocol Glucose 15 gm 11/26/24 16:51 Glucose Oral Gel 15 Gm Of Glucse In 37.5 Gm Tube PO PRN PRN Hypoglycemia Protocol Hydralazine HCl 50 mg 11/26/24 17:00 11/27/24 17:25 Hydralazine Hcl 50 Mg Tablet PO 50 mg TID LILIAN Administration Dextrose 1,000 mls @ 100 mls/hr 11/26/24 16:51 Dextrose 5% 1,000 Ml IVPB PRN PRN Hypoglycemia Protocol Albumin Human 50 mls @ 999 mls/hr 11/27/24 06:51 Albutein IVPB 12/27/24 06:50 Q10M PRN HYPOTENSION Cefepime HCl 2 gm in 50 mls @ 100 mls/hr 11/29/24 18:00 Maxipime 2 Gm/Ns 50 Ml IVPB [id number] [facility] Insulin Aspart 2 - 5 units 11/27/24 08:00 11/27/24 16:54 Insulin Aspart (*Bkc) 100 Units/Ml SUB-Q Not Given TIDWM [facility] Protocol Mupirocin 1 applic 11/28/24 09:00 Mupirocin 2% Oint 22 Gm Tube EACH NARE 12/02/24 21:01 Q12HR [facility] Ondansetron HCl 4 mg 11/26/24 14:10 Ondansetron Inj 4 Mg/2 Ml Vial IV PUSH Q4H PRN Nausea Vancomycin HCl 1 each 11/26/24 13:16 Vancomycin For Hemodialysis IVPB PRN PRN Vancomycin Protocol Radiology Results: ITS Impressions Foot X-Ray 11/26/24 12:58 Impression: 1: Moderate soft tissue swelling of the second digit. The distal phalanx not well visualized. Cannot exclude osteomyelitis. 2: Extra-articular fracture left fifth proximal phalanx. Duplex Scan Lower Extremity Artery 11/26/24 13:53 IMPRESSION: 1. No evident hemodynamically significant stenosis either by follow-up elevation of peak systolic velocities or by direct visualization grayscale imaging with brisk systolic upstrokes arteries of the bilateral lower limbs. Labs Labs: Laboratory Results - last 24 hr 11/27/24 11/27/24 11/27/24 13:18 16:36 20:53 WBC RBC Hgb Hct MCV MCH MCHC RDW Plt Count MPV Immature Gran % (Auto) Neut % (Auto) Lymph % (Auto) [place] % (Auto) Eos % (Auto) Baso % (Auto) Lymph # (Auto) [place] # (Auto) Eos # (Auto) Baso # (Auto) Abs Immat Gran (auto) Absolute Neuts (auto) Absolute Nucleated RBC Nucleated RBC % Sodium Potassium Chloride Carbon Dioxide Anion Gap BUN Creatinine Estim Creat Clear Calc Estimated GFR Glucose POC Capillary Glucose 149 H 190 H 220 H Calcium Total Bilirubin AST ALT Alkaline Phosphatase Total Protein Albumin 11/28/24 11/28/24 05:59 07:58 WBC 16.1 H RBC 3.28 L Hgb 9.8 L Hct 30.2 L MCV 92.1 MCH 29.9 MCHC 32.5 RDW 13.9 Plt Count 169 MPV 11.0 H Immature Gran % (Auto) 1.7 H Neut % (Auto) 80.7 H Lymph % (Auto) 5.1 L [place] % (Auto) 11.6 H Eos % (Auto) 0.7 Baso % (Auto) 0.2 Lymph # (Auto) 0.82 L [place] # (Auto) 1.9 H Eos # (Auto) 0.1 Baso # (Auto) 0.0 Abs Immat Gran (auto) 0.27 H Absolute Neuts (auto) 13.0 H Absolute Nucleated RBC 0.000 Nucleated RBC % 0.0 Sodium 136 L Potassium 3.8 Chloride 99 Carbon Dioxide 26 Anion Gap 11 BUN 55 H D Creatinine 6.31 H Estim Creat Clear Calc 13 Estimated GFR 9 L Glucose 181 H POC Capillary Glucose 160 H Calcium 8.0 L Total Bilirubin 1.0 AST 48 ALT 146 H Alkaline Phosphatase 146 H Total Protein 6.6 Albumin 3.1 L Quality VTE Prophylaxis VTE prophylaxis: mechanical ordered
[2024-11-28] MEDS: amLODIPine BESYLATE 10 MG TABLET PO (10:00)
[2024-11-28] MEDS: ATORVASTATIN 40 MG TABLET 80 MG PO (10:00)
[2024-11-28] MEDS: DOCUSATE SODIUM 100 MG CAPSULE PO (10:00)
[2024-11-28] MEDS: hydrALAZINE HCL 50 MG TABLET PO ×3 (10:00→17:22)
[2024-11-28] MEDS: carvediloL 25 MG TABLET PO ×2 (10:00→20:51)
[2024-11-28] MEDS: MUPIROCIN 2% OINT 22 GM TUBE 1 APPLIC EACH NARE ×2 (10:00→20:51)
[2024-11-28] MEDS: metroNIDAZOLE 500 MG/ISO 100ML 500 MG/100 ML BAG 100 MG IVPB ×2 (10:00→17:21)
--- NOTE | 2024-11-28 10:37 | PM.PNGS ---
Progress Note: A&P Assessment and Plan (1) Diabetic infection of left foot: Code(s): E11.628 - Type 2 diabetes mellitus with other skin complications; L08.9 - Local infection of the skin and subcutaneous tissue, unspecified Status: Acute Assessment and Plan: Stable if not slightly better. Erythema on foot has decreased but toe still black and and foul smelling. Continue IV antibiotics (2) Gangrenous toe: Code(s): I96 - Gangrene, not elsewhere classified Status: Acute Assessment and Plan: No change (3) Bacteremia: Code(s): R78.81 - Bacteremia Status: Acute Assessment and Plan: Growing staphylococcus aureus, susceptibilities pending (4) Chronic kidney disease, stage 5: Code(s): N18.5 - Chronic kidney disease, stage 5 Status: Chronic Assessment and Plan: Possibly going to dialyzed today (5) Antiplatelet or antithrombotic long-term use: Code(s): Z79.02 - [facility] (current) use of antithrombotics/antiplatelets Status: Chronic Assessment and Plan: Continue to hold Plavix. Subjective Subjective Date/Time Seen: 11/28/24 10:37 Patient reports: other (Complains of being tired, no pain in the foot no fevers or chills) Review of Systems Review of Systems: All systems reviewed & are unremarkable except as noted in HPI and below (HPI) Exam Const: General: comfortable, awake, lethargic, tired appearing and well nourished Extrem: Left lower extremity: foot (Less erythema dorsum of foot, gangrenous toe as before) Details: normal capillary refill; no tenderness, no ecchymosis and no crepitus Objective Data Vital Signs Vital Signs: Vital Signs - 24 hr 11/27/24 10:45 11/27/24 11:15 11/27/24 11:30 Temperature Pulse Rate 58 L 61 62 Respiratory Rate Blood Pressure 134/60 120/62 97/55 L Pulse Oximetry Oxygen Delivery 11/27/24 11:45 11/27/24 12:00 11/27/24 12:00 Temperature Pulse Rate 60 61 61 Respiratory Rate Blood Pressure 102/49 L 112/53 L Pulse Oximetry Oxygen Delivery 11/27/24 12:16 11/27/24 12:29 11/27/24 13:20 Temperature 36.8 C Pulse Rate 60 63 65 Respiratory Rate 18 Blood Pressure 113/49 L 122/53 L Pulse Oximetry Oxygen Delivery 11/27/24 14:00 11/27/24 16:04 11/27/24 20:50 Temperature Pulse Rate 63 64 Respiratory Rate 20 Blood Pressure 146/62 H Pulse Oximetry 97 Oxygen Delivery Room Air 11/27/24 20:50 11/27/24 20:54 11/27/24 21:23 Temperature Pulse Rate 69 70 Respiratory Rate Blood Pressure Pulse Oximetry 97 Oxygen Delivery Room Air 11/27/24 22:00 11/28/24 00:00 11/28/24 04:00 Temperature 37.2 C Pulse Rate 66 65 65 Respiratory Rate 18 Blood Pressure 139/64 Pulse Oximetry 93 Oxygen Delivery 11/28/24 06:00 11/28/24 08:00 11/28/24 08:00 Temperature 36.8 C Pulse Rate 64 67 Respiratory Rate 18 Blood Pressure 132/66 Pulse Oximetry 95 Oxygen Delivery Room Air 11/28/24 10:00 Temperature Pulse Rate 67 Respiratory Rate Blood Pressure Pulse Oximetry Oxygen Delivery Intake/Output Intake/Output: Intake & Output 11/25/24 11/26/24 11/27/24 11/28/24 23:59 23:59 23:59 23:59 Intake Total 1150 3578 240 Output Total 1999 Balance 1150 1578 240 Meds/Results Medications: Active Medications Generic Name Dose Route Start Last Admin Trade Name Freq PRN Reason Stop Dose Admin Acetaminophen 650 mg 11/26/24 14:10 11/27/24 13:21 Acetaminophen 325 Mg Tablet PO 650 mg Q4H PRN Administration Mild Pain (1-3) or Fever Amlodipine Besylate 10 mg 11/27/24 09:00 11/28/24 10:00 Amlodipine Besylate 10 Mg Tablet PO 10 mg DAILY LILIAN Administration Atorvastatin Calcium 80 mg 11/27/24 09:00 11/28/24 10:00 Atorvastatin 40 Mg Tablet PO 80 mg DAILY LILIAN Administration Carvedilol 25 mg 11/26/24 21:00 11/28/24 10:00 Carvedilol 25 Mg Tablet PO 25 mg Q12HR LILIAN Administration Clopidogrel Bisulfate 75 mg 11/27/24 09:00 Clopidogrel Bisulfate 75 Mg Tablet PO DAILY LILIAN Dextrose 12.5 gm 11/26/24 16:51 Dextrose 50% 25 Gm/50 Ml Syringe IV PUSH PRN PRN Hypoglycemia Protocol Docusate Sodium 100 mg 11/26/24 17:00 11/28/24 10:00 Docusate Sodium 100 Mg Capsule PO 100 mg BID LILIAN Administration Glucagon 1 mg 11/26/24 16:51 Glucagon For Inj 1 Mg Vial IM PRN PRN Hypoglycemia Protocol Glucose 15 gm 11/26/24 16:51 Glucose Oral Gel 15 Gm Of Glucse In 37.5 Gm Tube PO PRN PRN Hypoglycemia Protocol Hydralazine HCl 50 mg 11/26/24 17:00 11/28/24 10:00 Hydralazine Hcl 50 Mg Tablet PO 50 mg TID LILIAN Administration Dextrose 1,000 mls @ 100 mls/hr 11/26/24 16:51 Dextrose 5% 1,000 Ml IVPB PRN PRN Hypoglycemia Protocol Albumin Human 50 mls @ 999 mls/hr 11/27/24 06:51 Albutein IVPB 12/27/24 06:50 Q10M PRN HYPOTENSION Cefepime HCl 2 gm in 50 mls @ 100 mls/hr 11/29/24 18:00 Maxipime 2 Gm/Ns 50 Ml IVPB [id number] LILIAN Metronidazole 500 mg in 100 mls @ 100 mls/hr 11/28/24 09:00 11/28/24 10:00 Flagyl 500 Mg/Iso Soln 100 Ml IVPB 100 mls/hr Q8HR LILIAN Administration Insulin Aspart 2 - 5 units 11/27/24 08:00 11/28/24 08:50 Insulin Aspart (*Bkc) 100 Units/Ml SUB-Q Not Given TIDWM [facility] Protocol Mupirocin 1 applic 11/28/24 09:00 11/28/24 10:00 Mupirocin 2% Oint 22 Gm Tube EACH NARE 12/02/24 21:01 1 applic Q12HR LILIAN Administration Ondansetron HCl 4 mg 11/26/24 14:10 Ondansetron Inj 4 Mg/2 Ml Vial IV PUSH Q4H PRN Nausea Vancomycin HCl 1 each 11/26/24 13:16 Vancomycin For Hemodialysis IVPB PRN PRN Vancomycin Protocol Radiology Results: ITS Impressions Foot X-Ray 11/26/24 12:58 Impression: 1: Moderate soft tissue swelling of the second digit. The distal phalanx not well visualized. Cannot exclude osteomyelitis. 2: Extra-articular fracture left fifth proximal phalanx. Duplex Scan Lower Extremity Artery 11/26/24 13:53 IMPRESSION: 1. No evident hemodynamically significant stenosis either by follow-up elevation of peak systolic velocities or by direct visualization grayscale imaging with brisk systolic upstrokes arteries of the bilateral lower limbs. Labs Labs: Laboratory Results - last 24 hr 11/27/24 11/27/24 11/27/24 13:18 16:36 20:53 WBC RBC Hgb Hct MCV MCH MCHC RDW Plt Count MPV Immature Gran % (Auto) Neut % (Auto) Lymph % (Auto) Hubbard % (Auto) Eos % (Auto) Baso % (Auto) Lymph # (Auto) Hubbard # (Auto) Eos # (Auto) Baso # (Auto) Abs Immat Gran (auto) Absolute Neuts (auto) Absolute Nucleated RBC Nucleated RBC % Sodium Potassium Chloride Carbon Dioxide Anion Gap BUN Creatinine Estim Creat Clear Calc Estimated GFR Glucose POC Capillary Glucose 149 H 190 H 220 H Calcium Total Bilirubin AST ALT Alkaline Phosphatase Total Protein Albumin 11/28/24 11/28/24 05:59 07:58 WBC 16.1 H RBC 3.28 L Hgb 9.8 L Hct 30.2 L MCV 92.1 MCH 29.9 MCHC 32.5 RDW 13.9 Plt Count 169 MPV 11.0 H Immature Gran % (Auto) 1.7 H Neut % (Auto) 80.7 H Lymph % (Auto) 5.1 L Hubbard % (Auto) 11.6 H Eos % (Auto) 0.7 Baso % (Auto) 0.2 Lymph # (Auto) 0.82 L Hubbard # (Auto) 1.9 H Eos # (Auto) 0.1 Baso # (Auto) 0.0 Abs Immat Gran (auto) 0.27 H Absolute Neuts (auto) 13.0 H Absolute Nucleated RBC 0.000 Nucleated RBC % 0.0 Sodium 136 L Potassium 3.8 Chloride 99 Carbon Dioxide 26 Anion Gap 11 BUN 55 H D Creatinine 6.31 H Estim Creat Clear Calc 13 Estimated GFR 9 L Glucose 181 H POC Capillary Glucose 160 H Calcium 8.0 L Total Bilirubin 1.0 AST 48 ALT 146 H Alkaline Phosphatase 146 H Total Protein 6.6 Albumin 3.1 L
[2024-11-28 12:00] LABS: Glucose Point of Care 188 mg/dl (65-105)
--- NOTE | 2024-11-28 12:13 | P.PNNP_ITS ---
Progress Note: A&P Assessment and Plan (1) End stage renal disease: Code(s): N18.6 - End stage renal disease Status: Chronic Assessment and Plan: * HD tomorrow * resume Fri/Fri/Friday schedule while hospitalized * follow electrolyses, volume status, and clearance * significant azotemia noted on admission and likely due to infection + ongoing inflammation secondary to wounds * kidney disease due to biopsy proven diabetes and hypertension along with vascular disease (CVA + hyperlipemia) (2) Gangrene of toe of left foot: Code(s): I96 - Gangrene, not elsewhere classified Status: Acute Assessment and Plan: * as noted by clinical exam * Surgery recommendations noted * will eventually need surgical intervention (amputation) * on IV antibiotics (3) Cellulitis of left foot: Code(s): L03.116 - Cellulitis of left lower limb Status: Acute Assessment and Plan: * as noted on presentation * likely a complication of diabetes and #2 * on antibiotics (4) Bacteremia: Code(s): R78.81 - Bacteremia Status: Acute Assessment and Plan: * as noted: * blood cultures (11/26): Staphylococcus aureus * presumably related to #2 and #3 * on antibiotics * follow repeat cultures (5) Anemia: Code(s): D64.9 - Anemia, unspecified Status: Chronic Assessment and Plan: * due to ESRD with worsening due to acute illness/infection * follow trend of H/H * Epogen with HD (6) Heart failure with preserved ejection fraction: Qualifiers: Heart failure chronicity: unspecified Qualified Code(s): I50.30 - Unspecified diastolic (congestive) heart failure Code(s): I50.30 - Unspecified diastolic (congestive) heart failure Status: Chronic Assessment and Plan: * appears compensated * fluid removal with dialysis to maintain euvolemia * contineu supportive therapy (7) Hypertension: Qualifiers: Hypertension type: unspecified Qualified Code(s): I10 - Essential (primary) hypertension Code(s): I10 - Essential (primary) hypertension Status: Chronic Assessment and Plan: * reasonable control at this time * known history of poor control at baseline * follow trend of hemodynamics (8) Diabetes: Qualifiers: Diabetes mellitus type: type 2 Diabetes mellitus vermin exterminator insulin use: without vermin exterminator use Diabetes mellitus complication status: with kidney complications Diabetes mellitus complication detail: with chronic kidney disease Chronic kidney disease stage: on chronic dialysis Qualified Code(s): E 11.22 - Type 2 diabetes mellitus with diabetic chronic kidney disease; N18.6 - End stage renal disease; Z99.2 - Dependence on renal dialysis Code(s): E11.9 - Type 2 diabetes mellitus without complications Status: Chronic Assessment and Plan: * follow accu-cheks * glycemic control per hospitalists Will continue to follow. L Subjective Date/time seen: 11/28/24 12:13 Interval history: Follow-up for end stage renal disease on hemodialysis. Tolerated dialysis treatment yesterday without any issues or problems; major complaint is that of weakness/fatigue; no complaints with regard to pain, shortness of breath, or nausea/vomiting; tolerated IV antibiotic therapy; results of blood cultures noted. Exam 2 Narrative: General: WD/WN male in NAD Heart: normal S1 and S2; no rub Lungs: clear anteriorly Abdomen: soft, nontender, nondistended, positive bowel sounds Extremities: no cyanosis or clubbing; + edema left foot Skin: dorsal erythema of left foot with gangrenous left 2nd toe Objective Data Vital Signs Vital Signs: Vital Signs Temp Pulse Resp BP Pulse Ox O2 Del Method 11/28/24 12:00 67 11/28/24 10:00 67 11/28/24 08:00 67 11/28/24 08:00 Room Air 11/28/24 06:00 98.2 F 64 18 132/66 95 11/28/24 04:00 65 11/28/24 00:00 65 11/27/24 22:00 99.0 F 66 18 139/64 93 11/27/24 21:23 97 Room Air 11/27/24 20:54 70 11/27/24 20:50 69 11/27/24 20:50 Room Air 11/27/24 16:04 64 11/27/24 14:00 63 20 146/62 H 97 11/27/24 13:20 65 Intake/Output Intake/Output: Intake & Output 11/25/24 11/26/24 11/27/24 11/28/24 23:59 23:59 23:59 23:59 Intake Total 1150 3578 340 Output Total 1999 Balance 1150 1578 340 Meds/Results Medications: Active Medications Generic Name Dose Route Start Last Admin Trade Name Freq PRN Reason Stop Dose Admin Acetaminophen 650 mg 11/26/24 14:10 11/27/24 13:21 Acetaminophen 325 Mg Tablet PO 650 mg Q4H PRN Administration Mild Pain (1-3) or Fever Amlodipine Besylate 10 mg 11/27/24 09:00 11/28/24 10:00 Amlodipine Besylate 10 Mg Tablet PO 10 mg DAILY LILIAN Administration Atorvastatin Calcium 80 mg 11/27/24 09:00 11/28/24 10:00 Atorvastatin 40 Mg Tablet PO 80 mg DAILY LILIAN Administration Carvedilol 25 mg 11/26/24 21:00 11/28/24 10:00 Carvedilol 25 Mg Tablet PO 25 mg Q12HR LILIAN Administration Clopidogrel Bisulfate 75 mg 11/27/24 09:00 Clopidogrel Bisulfate 75 Mg Tablet PO DAILY LILIAN Dextrose 12.5 gm 11/26/24 16:51 Dextrose 50% 25 Gm/50 Ml Syringe IV PUSH PRN PRN Hypoglycemia Protocol Docusate Sodium 100 mg 11/26/24 17:00 11/28/24 11:40 Docusate Sodium 100 Mg Capsule PO Not Given BID LILIAN Glucagon 1 mg 11/26/24 16:51 Glucagon For Inj 1 Mg Vial IM PRN PRN Hypoglycemia Protocol Glucose 15 gm 11/26/24 16:51 Glucose Oral Gel 15 Gm Of Glucse In 37.5 Gm Tube PO PRN PRN Hypoglycemia Protocol Hydralazine HCl 50 mg 11/26/24 17:00 11/28/24 12:15 Hydralazine Hcl 50 Mg Tablet PO 50 mg TID LILIAN Administration Dextrose 1,000 mls @ 100 mls/hr 11/26/24 16:51 Dextrose 5% 1,000 Ml IVPB PRN PRN Hypoglycemia Protocol Albumin Human 50 mls @ 999 mls/hr 11/27/24 06:51 Albutein IVPB 12/27/24 06:50 Q10M PRN HYPOTENSION Cefepime HCl 2 gm in 50 mls @ 100 mls/hr 11/29/24 18:00 Maxipime 2 Gm/Ns 50 Ml IVPB [id number] LILIAN Metronidazole 500 mg in 100 mls @ 100 mls/hr 11/28/24 10:00 11/28/24 12:13 Flagyl 500 Mg/Iso Soln 100 Ml IVPB Not Given Q8H [facility] Insulin Aspart 2 - 5 units 11/27/24 08:00 11/28/24 12:14 Insulin Aspart (*Bkc) 100 Units/Ml SUB-Q Not Given TIDWM [facility] Protocol Mupirocin 1 applic 11/28/24 09:00 11/28/24 10:00 Mupirocin 2% Oint 22 Gm Tube EACH NARE 12/02/24 21:01 1 applic Q12HR LILIAN Administration Ondansetron HCl 4 mg 11/26/24 14:10 Ondansetron Inj 4 Mg/2 Ml Vial IV PUSH Q4H PRN Nausea Vancomycin HCl 1 each 11/26/24 13:16 Vancomycin For Hemodialysis IVPB PRN PRN Vancomycin Protocol Radiology Results: ITS Impressions Foot X-Ray 11/26/24 12:58 Impression: 1: Moderate soft tissue swelling of the second digit. The distal phalanx not well visualized. Cannot exclude osteomyelitis. 2: Extra-articular fracture left fifth proximal phalanx. Duplex Scan Lower Extremity Artery 11/26/24 13:53 IMPRESSION: 1. No evident hemodynamically significant stenosis either by follow-up elevation of peak systolic velocities or by direct visualization grayscale imaging with brisk systolic upstrokes arteries of the bilateral lower limbs. Labs Labs: Laboratory Tests 11/28/24 05:59 11/28/24 05:59 Calcium 8.0 L Total Bilirubin 1.0 AST 48 ALT 146 H Alkaline Phosphatase 146 H Total Protein 6.6 Albumin 3.1 L Microbiology 11/26/24 13:49 Blood Blood Culture - Preliminary Staphylococcus aureus 11/26/24 13:39 Foot - Unspecified Anaerobic Culture - Preliminary 11/26/24 13:39 Foot - Unspecified Aerobic Culture - Preliminary Staphylococcus aureus 11/26/24 12:43 Blood Blood Culture - Final Staphylococcus aureus
[2024-11-28 14:17] LABS: Magnesium 2.3 mg/dL (1.6-2.3)
--- NOTE | 2024-11-28 14:54 | PCSTNOTE ---
Please refer to the Bedside Swallow Evaluation in the EMR. Please note, silent aspiration cannot be ruled out at bedside.
[2024-11-28 17:02] LABS: Glucose Point of Care 165 mg/dl (65-105)
[2024-11-29] VITALS (33 sets, daily range): BP systolic 113–168; BP diastolic 59–89; PULSE 61–88; RESP 14–20; TEMP 36.4–37; O2SAT 95–100
[2024-11-29 00:50] LABS: Glucose Point of Care 166 mg/dl (65-105)
[2024-11-29] MEDS: metroNIDAZOLE 500 MG/ISO 100ML 500 MG/100 ML BAG 100 MG IVPB (01:58)
[2024-11-29 05:18] LABS: Basophils Percent Auto 0.3 % (0.2-1.2); Eosinophils Absolute Auto 0.2 K/mm3 (0-0.3); Hematocrit 26.6 % (42.0-52.0); Hemoglobin 8.7 g/dL (14.0-18.0); Immature Granulocyte Absolute 0.34 K/mm3 (0.00-0.031); Immature Granulocyte Percent A 2.1 % (0-0.5); Lymphocytes Absolute Auto 0.99 K/mm3 (0.9-3.2); Lymphocytes Percent Auto 6.2 % (18.3-44.2); Mean Corpuscular HGB Conc 32.7 g/dl (32-36); Mean Corpuscular Hemoglobin 29.6 pg (26-34); Mean Corpuscular Volume 90.5 fl (80-100); Mean Platelet Volume 11.1 fl (7.4-10.4); Monocytes Absolute Auto 1.4 K/mm3 (0.1-0.6); Monocytes Percent Auto 8.6 % (2.6-8.5); Neutrophils Percent Auto 81.8 % (45.5-73.1); Platelet Count Result 174 k/mm3 (150-375); Red Blood Count 2.94 M/mm3 (4.6-6.20); Red Cell Distribution Width 14.1 % (11.5-14.5); White Blood Count 15.9 K/mm3 (4.5-10.0)
[2024-11-29 05:32] LABS: Alanine Aminotransferase 97 U/L (6-50); Albumin Level 2.8 g/dL (3.5-5.1); Alkaline Phosphatase 141 U/L (38-126); Anion Gap 13 mmol/L (4-12); Aspartate Amino Transferase 37 U/L (17-59); Bilirubin,Total 0.9 mg/dL (0.2-1.3); Blood Urea Nitrogen 68 mg/dL (9-20); Calcium 7.6 mg/dL (8.4-10.2); Carbon Dioxide 21 mmol/L (22-30); Chloride 101 mmol/L (98-107); Estimated CRCL calculation 11 ml/min; Estimated Glomerular Filt Rate 7; Glucose 142 mg/dL (65-110); Potassium 3.7 mmol/L (3.4-5.0); Sodium 135 mmol/L (137-145); Total Protein 6.1 g/dL (6.3-8.2)
[2024-11-29 05:56] LABS: Vancomycin Trough 16.8 ug/mL (10.0-20.0)
[2024-11-29 06:14] LABS: CRP. 21.4 mg/dL (<1.0)
--- NOTE | 2024-11-29 07:14 | P.PNIM_ITS ---
Progress Note: A&P Assessment and Plan (1) Bacteremia: Code(s): R78.81 - Bacteremia Status: Acute Assessment and Plan: Blood cultures obtained 11/26: staph aureus, sensitivities pending Patient remains on vancomycin Echo ordered to rule out endocarditis LVEF 60-65% with abnormal diastolic function and an abnormal appearing aortic valve that is heavily calcified and has at least moderate stenosis. Repeat blood cultures on 11/28 NGTD (2) Diabetic infection of left foot: Code(s): E11.628 - Type 2 diabetes mellitus with other skin complications; L08.9 - Local infection of the skin and subcutaneous tissue, unspecified Status: Acute Assessment and Plan: Erythema and edema to the dorsal aspect of the left foot extending to the ankle. Unable to palpate DP pulses. Black foul smelling 2nd toe of the left foot. - Antibiotics: vancomycin (pharmacy to dose) and cefepime 2g following dialysis, started on Flagyl given possible anaerobic concern - Foot XR left showed moderate soft tissue swelling of the second digit with poor visualization fo the distal phalanx. Osteomyelitis cannot be rule out. Also extra articular fracture to the left fifth proximal phalanx noted. - Duplex showed No evident hemodynamically significant stenosis either by follow-up elevation of peak systolic velocities or by direct visualization grayscale imaging with brisk systolic upstrokes arteries of the bilateral lower limbs. - Monitor vital signs, I&Os, neuro status and patient is a fall risk - Monitor serum electrolytes, CBC, cultures, WBC and temp curve - Surgery consulted Agree with broad spectrum antibiotics Erythema on foot continues to improve, continues to have black foul smelling toe. WBC improving on antibiotics. Plan for left second toe amputation [place] [address] Goodson today. (3) Gangrenous toe: Code(s): I96 - Gangrene, not elsewhere classified Status: Acute Assessment and Plan: See plan above #1 diabetic infection of left foot Surgery consulted left second toe amputation [place] [address] Goodson today. continue IV antibiotics. (4) Aortic stenosis: Code(s): I35.0 - Nonrheumatic aortic (valve) stenosis Status: Acute Assessment and Plan: Echo ordered to rule out endocarditis LVEF 60-65% with abnormal diastolic function and an abnormal appearing aortic valve that is heavily calcified and has at least moderate stenosis. Recommend cardiology follow up outpatient. Checked tele monitor and patient had intermittent PVCs, remains asymptomatic and stable. Mag and K WNL. Remains on carvedilol 25 mg BID. Discussed with patient and he will follow up with his primary supervisor [employer]. (5) Type 2 diabetes mellitus: Code(s): E11.9 - Type 2 diabetes mellitus without complications Status: Acute Assessment and Plan: - hypoglycemia protocol - POC blood glucose ACHS - home medication - none - correct regimen ordered - low dose TIDWM and HS - A1C 5.9 (6) Anemia: Code(s): D64.9 - Anemia, unspecified Status: Chronic Assessment and Plan: Chronic, likely secondary to ESRD H/H 11.5/35.7 on admission, 8.7/26.6 on am labs Given epoetin 10,000 units x1 on 11/27 No signs of active bleeding (7) Carotid artery disease: Qualifiers: Carotid artery disease type: stenosis Laterality: unspecified laterality Qualified Code(s): I65.29 - Occlusion and stenosis of unspecified carotid artery Code(s): I77.9 - Disorder of arteries and arterioles, unspecified Status: Chronic Assessment and Plan: Chronic, currently holding plavix for plan of toe amputation with surgery (8) Hypertension: Qualifiers: Hypertension type: unspecified Qualified Code(s): I10 - Essential (primary) hypertension Code(s): I10 - Essential (primary) hypertension Status: Chronic Assessment and Plan: Chronic, continue home medications - amlodipine 10 mg daily - coreg 25 mg BID - hydralazine 50 mg TID - blood pressures stable, continue to montior (9) End stage renal disease on dialysis: Code(s): N18.6 - End stage renal disease; Z99.2 - Dependence on renal dialysis Status: Acute Assessment and Plan: ESRD on dialysis [facility] Nephrology consulted (10) Heart failure with preserved ejection fraction: Qualifiers: Heart failure chronicity: unspecified Qualified Code(s): I50.30 - Unspecified diastolic (congestive) heart failure Code(s): I50.30 - Unspecified diastolic (congestive) heart failure Status: Chronic Assessment and Plan: Chronic, does not appear in acute exacerbation Echo 07/2023 showed LVEF 40-45% with grade 2 diastolic dysfunction Echo ordered to rule out endocarditis LVEF 60-65% with abnormal diastolic function and an abnormal appearing aortic valve that is heavily calcified and has at least moderate stenosis. Plan to follow up with primary supervisor [employer] outpatient Time Spent With Patient Time with patient: 25 - 35 minutes Subjective Date/time seen: 11/29/24 07:14 Interval history: 59 year old male with past medical history of HTN, CAD, CVA, CHF, and ESRD on dialysis presents to the hospital with complaint of a black left toe. Patient is pleasant lying in bed receiving dialysis. He has no complaints at time of assessment denying chest pain, shortness of breath, palpitations, nausea/vomiting and abdominal pain. He is scheduled for a left second toe amputation [place] [address] Goodson today. Review of Systems Review of Systems: All systems reviewed & are unremarkable except as noted in HPI and below Exam Narrative: AF HR 74 RR 18 Spo2 100 BP 159/78 General: male in no acute respiratory distress who is nontoxic appearing, sitting up in bed. HEENT: Normocephalic. Atraumatic. Extraocular movement intact. Sclera clear and anicteric. No facial asymmetry. Chest: Lungs are clear to auscultation bilaterally. CV: Heart was regular rate and rhythm. S1/S2. No murmurs, gallops, or rubs. Abd: Abdomen was soft. Nontender. Nondistended. Positive bowel sounds. Ext: Erythema and edema to the dorsal aspect of the left foot extending to the ankle, improved since yesterday. Unable to palpate DP pulses. Black foul smelling 2nd toe of the left foot. Neuro: Patient is alert and oriented x4. Speech is clear. Objective Data Vital Signs Vital Signs: Vital Signs - 24 hr 11/28/24 08:00 11/28/24 08:00 11/28/24 10:00 Temperature Pulse Rate 67 67 Respiratory Rate Blood Pressure Pulse Oximetry Oxygen Delivery Room Air 11/28/24 12:00 11/28/24 14:00 11/28/24 16:00 Temperature 97.9 F Pulse Rate 67 72 68 Respiratory Rate 20 Blood Pressure 132/60 Pulse Oximetry 99 Oxygen Delivery 11/28/24 20:00 11/28/24 20:00 11/28/24 20:51 Temperature Pulse Rate 66 66 Respiratory Rate Blood Pressure Pulse Oximetry Oxygen Delivery Room Air 11/28/24 22:00 11/29/24 00:00 11/29/24 04:00 Temperature 98.0 F Pulse Rate 66 67 66 Respiratory Rate 18 Blood Pressure 135/62 Pulse Oximetry 97 Oxygen Delivery Intake/Output Intake/Output: Intake & Output 11/26/24 11/27/24 11/28/24 11/29/24 23:59 23:59 23:59 23:59 Intake Total 1150 3578 1780 100 Output Total 1999 Balance 1150 1578 1780 100 Meds/Results Medications: Active Medications Generic Name Dose Route Start Last Admin Trade Name Freq PRN Reason Stop Dose Admin Acetaminophen 650 mg 11/26/24 14:10 11/27/24 13:21 Acetaminophen 325 Mg Tablet PO 650 mg Q4H PRN Administration Mild Pain (1-3) or Fever Amlodipine Besylate 10 mg 11/27/24 09:00 11/28/24 10:00 Amlodipine Besylate 10 Mg Tablet PO 10 mg DAILY LILIAN Administration Atorvastatin Calcium 80 mg 11/27/24 09:00 11/28/24 10:00 Atorvastatin 40 Mg Tablet PO 80 mg DAILY LILIAN Administration Carvedilol 25 mg 11/26/24 21:00 11/28/24 20:51 Carvedilol 25 Mg Tablet PO 25 mg Q12HR LILIAN Administration Clopidogrel Bisulfate 75 mg 11/27/24 09:00 Clopidogrel Bisulfate 75 Mg Tablet PO DAILY LILIAN Dextrose 12.5 gm 11/26/24 16:51 Dextrose 50% 25 Gm/50 Ml Syringe IV PUSH PRN PRN Hypoglycemia Protocol Docusate Sodium 100 mg 11/26/24 17:00 11/28/24 11:40 Docusate Sodium 100 Mg Capsule PO Not Given BID LILIAN Epoetin Romain-epbx 10,000 units 11/29/24 18:16 Epoetin Romain-Epbx 10,000 Units/Ml Vial IV PUSH 11/29/24 18:17 ONCE ONE Glucagon 1 mg 11/26/24 16:51 Glucagon For Inj 1 Mg Vial IM PRN PRN Hypoglycemia Protocol Glucose 15 gm 11/26/24 16:51 Glucose Oral Gel 15 Gm Of Glucse In 37.5 Gm Tube PO PRN PRN Hypoglycemia Protocol Hydralazine HCl 50 mg 11/26/24 17:00 11/28/24 17:22 Hydralazine Hcl 50 Mg Tablet PO 50 mg TID LILIAN Administration Dextrose 1,000 mls @ 100 mls/hr 11/26/24 16:51 Dextrose 5% 1,000 Ml IVPB PRN PRN Hypoglycemia Protocol Albumin Human 50 mls @ 999 mls/hr 11/27/24 06:51 Albutein IVPB 12/27/24 06:50 Q10M PRN HYPOTENSION Cefepime HCl 2 gm in 50 mls @ 100 mls/hr 11/29/24 18:00 Maxipime 2 Gm/Ns 50 Ml IVPB [id number] LILIAN Metronidazole 500 mg in 100 mls @ 100 mls/hr 11/28/24 10:00 11/29/24 03:00 Flagyl 500 Mg/Iso Soln 100 Ml IVPB Infused Q8H LILIAN Infusion Sodium Chloride 1,000 mls @ 999 mls/hr 11/29/24 06:16 Normal Saline Iv IV CONT 11/29/24 07:16 .Q1H1M ONE Vancomycin HCl 750 mg in 250 mls @ 250 mls/hr 11/29/24 18:00 Vancomycin 750 Mg/Ns 250 Ml IVPB 11/29/24 18:59 ONCE ONE Insulin Aspart 2 - 5 units 11/27/24 08:00 11/28/24 17:19 Insulin Aspart (*Bkc) 100 Units/Ml SUB-Q Not Given TIDWM [facility] Protocol Mupirocin 1 applic 11/28/24 09:00 11/28/24 20:51 Mupirocin 2% Oint 22 Gm Tube EACH NARE 12/02/24 21:01 1 applic Q12HR LILIAN Administration Ondansetron HCl 4 mg 11/26/24 14:10 Ondansetron Inj 4 Mg/2 Ml Vial IV PUSH Q4H PRN Nausea Vancomycin HCl 1 each 11/26/24 13:16 Vancomycin For Hemodialysis IVPB PRN PRN Vancomycin Protocol Radiology Results: ITS Impressions Foot X-Ray 11/26/24 12:58 Impression: 1: Moderate soft tissue swelling of the second digit. The distal phalanx not well visualized. Cannot exclude osteomyelitis. 2: Extra-articular fracture left fifth proximal phalanx. Duplex Scan Lower Extremity Artery 11/26/24 13:53 IMPRESSION: 1. No evident hemodynamically significant stenosis either by follow-up elevation of peak systolic velocities or by direct visualization grayscale imaging with brisk systolic upstrokes arteries of the bilateral lower limbs. Labs Labs: Laboratory Results - last 24 hr 11/28/24 11/28/24 11/28/24 05:57 07:58 11:10 WBC RBC Hgb Hct MCV MCH MCHC RDW Plt Count MPV Immature Gran % (Auto) Neut % (Auto) Lymph % (Auto) [place] % (Auto) Eos % (Auto) Baso % (Auto) Lymph # (Auto) [place] # (Auto) Eos # (Auto) Baso # (Auto) Abs Immat Gran (auto) Absolute Neuts (auto) Absolute Nucleated RBC Nucleated RBC % Sodium Potassium Chloride Carbon Dioxide Anion Gap BUN Creatinine Estim Creat Clear Calc Estimated GFR Glucose POC Capillary Glucose 160 H Calcium Magnesium 2.3 Total Bilirubin AST ALT Alkaline Phosphatase C-Reactive Protein Total Protein Albumin Vancomycin Trough Blood Type O Positive Antibody Screen Negative 11/28/24 11/28/24 11/28/24 11:56 17:00 20:49 WBC RBC Hgb Hct MCV MCH MCHC RDW Plt Count MPV Immature Gran % (Auto) Neut % (Auto) Lymph % (Auto) [place] % (Auto) Eos % (Auto) Baso % (Auto) Lymph # (Auto) [place] # (Auto) Eos # (Auto) Baso # (Auto) Abs Immat Gran (auto) Absolute Neuts (auto) Absolute Nucleated RBC Nucleated RBC % Sodium Potassium Chloride Carbon Dioxide Anion Gap BUN Creatinine Estim Creat Clear Calc Estimated GFR Glucose POC Capillary Glucose 188 H 165 H 166 H Calcium Magnesium Total Bilirubin AST ALT Alkaline Phosphatase C-Reactive Protein Total Protein Albumin Vancomycin Trough Blood Type Antibody Screen 11/29/24 05:07 WBC 15.9 H RBC 2.94 L Hgb 8.7 L Hct 26.6 L MCV 90.5 MCH 29.6 MCHC 32.7 RDW 14.1 Plt Count 174 MPV 11.1 H Immature Gran % (Auto) 2.1 H Neut % (Auto) 81.8 H Lymph % (Auto) 6.2 L [place] % (Auto) 8.6 H Eos % (Auto) 1.0 Baso % (Auto) 0.3 Lymph # (Auto) 0.99 [place] # (Auto) 1.4 H Eos # (Auto) 0.2 Baso # (Auto) 0.0 Abs Immat Gran (auto) 0.34 H Absolute Neuts (auto) 13.0 H Absolute Nucleated RBC 0.000 Nucleated RBC % 0.0 Sodium 135 L Potassium 3.7 Chloride 101 Carbon Dioxide 21 L Anion Gap 13 H BUN 68 H D Creatinine 7.58 H Estim Creat Clear Calc 11 Estimated GFR 7 L Glucose 142 H POC Capillary Glucose Calcium 7.6 L Magnesium Total Bilirubin 0.9 AST 37 ALT 97 H Alkaline Phosphatase 141 H C-Reactive Protein 21.4 H Total Protein 6.1 L Albumin 2.8 L Vancomycin Trough 16.8 Blood Type Antibody Screen Quality VTE Prophylaxis VTE prophylaxis: mechanical ordered
--- NOTE | 2024-11-29 10:25 | P.PNNP_ITS ---
Progress Note: A&P Assessment and Plan (1) End stage renal disease: Code(s): N18.6 - End stage renal disease Status: Chronic Assessment and Plan: * HD today * continue Fri/Fri/Friday dialysis schedule while hospitalized * follow electrolyses, volume status, and clearance * kidney disease due to biopsy proven diabetes and hypertension along with vascular disease (CVA + hyperlipemia) (2) Gangrene of toe of left foot: Code(s): I96 - Gangrene, not elsewhere classified Status: Acute Assessment and Plan: * as noted by clinical exam * Surgery recommendations noted * noted surgical intervention (amputation) later today * on IV antibiotics (3) Cellulitis of left foot: Code(s): L03.116 - Cellulitis of left lower limb Status: Acute Assessment and Plan: * as noted on presentation * likely a complication of diabetes and #2 * on antibiotics (4) Bacteremia: Code(s): R78.81 - Bacteremia Status: Acute Assessment and Plan: * as noted: * blood cultures (11/26): MRSA * blood cultures (11/28): pending * presumably related to #2 and #3 * on antibiotics * follow culture data (5) Anemia: Code(s): D64.9 - Anemia, unspecified Status: Chronic Assessment and Plan: * due to ESRD with worsening due to acute illness/infection * follow trend of H/H * Epogen with HD (6) Heart failure with preserved ejection fraction: Qualifiers: Heart failure chronicity: unspecified Qualified Code(s): I50.30 - Unspecified diastolic (congestive) heart failure Code(s): I50.30 - Unspecified diastolic (congestive) heart failure Status: Chronic Assessment and Plan: * appears compensated * fluid removal with dialysis to maintain euvolemia * contineu supportive therapy (7) Hypertension: Qualifiers: Hypertension type: unspecified Qualified Code(s): I10 - Essential (primary) hypertension Code(s): I10 - Essential (primary) hypertension Status: Chronic Assessment and Plan: * reasonable control at this time * known history of poor control at baseline * follow trend of hemodynamics (8) Diabetes: Qualifiers: Diabetes mellitus type: type 2 Diabetes mellitus penitentiary insulin use: without penitentiary use Diabetes mellitus complication status: with kidney complications Diabetes mellitus complication detail: with chronic kidney disease Chronic kidney disease stage: on chronic dialysis Qualified Code(s): E 11.22 - Type 2 diabetes mellitus with diabetic chronic kidney disease; N18.6 - End stage renal disease; Z99.2 - Dependence on renal dialysis Code(s): E11.9 - Type 2 diabetes mellitus without complications Status: Chronic Assessment and Plan: * follow accu-cheks * glycemic control per hospitalists Will continue to follow. L Subjective Date/time seen: 11/29/24 10:25 Interval history: Follow-up for end stage renal disease on hemodialysis. Toleratin dialysis treatment at the time of my visit (seen on HD at 10:15AM); noted plans for surgery later this afternoon; no other acute complaints voiced when seen; no events overnight or earlier this morning. Exam 2 Narrative: General: WD/WN male in NAD Heart: normal S1 and S2; no rub Lungs: clear anteriorly Abdomen: soft, nontender, nondistended, positive bowel sounds Extremities: no cyanosis or clubbing; + edema left foot Skin: noted dorsal erythema of left foot with gangrenous left 2nd toe Objective Data Vital Signs Vital Signs: Vital Signs Temp Pulse Resp BP Pulse Ox O2 Del Method O2 Flow Rate 11/29/24 10:15 70 159/72 H 11/29/24 10:00 72 163/78 H 11/29/24 09:45 68 161/71 H 11/29/24 09:30 69 146/78 H 11/29/24 09:15 65 131/64 11/29/24 09:00 64 147/74 H 11/29/24 08:45 63 143/77 H 11/29/24 08:35 64 138/72 11/29/24 08:23 97.7 F 64 18 153/76 H 11/29/24 08:00 64 11/29/24 08:00 64 18 100 Room Air 11/29/24 06:00 98.4 F 63 18 127/64 100 11/29/24 04:00 66 11/29/24 00:00 67 11/28/24 22:00 98.0 F 66 18 135/62 97 11/28/24 20:51 66 11/28/24 20:00 66 11/28/24 20:00 Room Air Intake/Output Intake/Output: Intake & Output 11/26/24 11/27/24 11/28/24 11/29/24 23:59 23:59 23:59 23:59 Intake Total 1150 3578 1780 136 Output Total 1999 2599 Balance 1150 3254 1780 -1833 Meds/Results Medications: Active Medications Generic Name Dose Route Start Last Admin Trade Name Freq PRN Reason Stop Dose Admin Acetaminophen 500 mg 11/29/24 17:35 Acetaminophen 500 Mg Tablet PO Q6H PRN Pain Rated 1-3 Amlodipine Besylate 10 mg 11/27/24 09:00 11/29/24 10:50 Amlodipine Besylate 10 Mg Tablet PO Not Given DAILY [facility] Atorvastatin Calcium 80 mg 11/27/24 09:00 11/29/24 10:50 Atorvastatin 40 Mg Tablet PO Not Given DAILY [facility] Carvedilol 25 mg 11/26/24 21:00 11/29/24 10:50 Carvedilol 25 Mg Tablet PO Not Given Q12HR [facility] Clopidogrel Bisulfate 75 mg 11/27/24 09:00 Clopidogrel Bisulfate 75 Mg Tablet PO DAILY LILIAN Dextrose 12.5 gm 11/26/24 16:51 Dextrose 50% 25 Gm/50 Ml Syringe IV PUSH PRN PRN Hypoglycemia Protocol Docusate Sodium 100 mg 11/26/24 17:00 11/29/24 17:31 Docusate Sodium 100 Mg Capsule PO Not Given BID LILIAN Glucagon 1 mg 11/26/24 16:51 Glucagon For Inj 1 Mg Vial IM PRN PRN Hypoglycemia Protocol Glucose 15 gm 11/26/24 16:51 Glucose Oral Gel 15 Gm Of Glucse In 37.5 Gm Tube PO PRN PRN Hypoglycemia Protocol Hydralazine HCl 50 mg 11/26/24 17:00 11/29/24 17:31 Hydralazine Hcl 50 Mg Tablet PO Not Given TID LILIAN Dextrose 1,000 mls @ 100 mls/hr 11/26/24 16:51 Dextrose 5% 1,000 Ml IVPB PRN PRN Hypoglycemia Protocol Albumin Human 50 mls @ 999 mls/hr 11/27/24 06:51 Albutein IVPB 12/27/24 06:50 Q10M PRN HYPOTENSION Vancomycin HCl 750 mg in 250 mls @ 250 mls/hr 11/29/24 18:00 Vancomycin 750 Mg/Ns 250 Ml IVPB 11/29/24 18:59 ONCE ONE Ceftriaxone Sodium 2 gm in 100 mls @ 200 mls/hr 11/29/24 18:00 11/29/24 18:21 Rocephin 2 Gm/Ns 100 Ml IVPB 200 mls/hr Q24H LILIAN Administration Ibuprofen 800 mg in 200 mls @ 400 mls/hr 11/29/24 17:35 Caldolor 800 Mg/200 Ml IVPB Q6H PRN Breakthrough Pain Rated 1-3 or NPO Lactated Ringer's 1,000 mls @ 80 mls/hr 11/29/24 17:35 Lr - Lactated Ringers Iv IV CONT .[id number] [facility] Insulin Aspart 2 - 5 units 11/27/24 08:00 11/29/24 17:03 Insulin Aspart (*Bkc) 100 Units/Ml SUB-Q Not Given TIDWM [facility] Protocol Morphine Sulfate 1 mg 11/29/24 17:35 Morphine Sulfate (*Crx) 2 Mg/Ml Inj IV PUSH Q2H PRN Breakthrough Pain Rated 4-6 or NPO Morphine Sulfate 2 mg 11/29/24 17:35 11/29/24 18:20 Morphine Sulfate (*Crx) 4 Mg/Ml Inj IV PUSH 2 mg Q2H PRN Administration Breakthrough Pain Rated 7-10 or NPO Mupirocin 1 applic 11/28/24 09:00 11/29/24 10:51 Mupirocin 2% Oint 22 Gm Tube EACH NARE 12/02/24 21:01 Not Given Q12HR [facility] Naloxone HCl 0.1 mg 11/29/24 17:35 Naloxone Hcl 0.4 Mg/Ml Vial IV PUSH Q2M PRN Opiate Reversal Ondansetron HCl 4 mg 11/26/24 14:10 Ondansetron Inj 4 Mg/2 Ml Vial IV PUSH Q4H PRN Nausea Oxycodone/Acetaminophen 0.5 tablet 11/29/24 17:35 Oxycodone/Acetaminophen (*Crx) 5-325 Mg Tablet PO Q4H PRN Pain Rated 4-6 Polyethylene Glycol 17 gm 11/30/24 09:00 Polyethylene Glycol 3350 17 Gm Powd.Pack PO QAM [facility] Senna/Docusate Sodium 2 tab 11/29/24 21:00 Senna/Docusate Sodium Tablet PO HS [facility] Vancomycin HCl 1 each 11/26/24 13:16 Vancomycin For Hemodialysis IVPB PRN PRN Vancomycin Protocol Radiology Results: ITS Impressions Foot X-Ray 11/26/24 12:58 Impression: 1: Moderate soft tissue swelling of the second digit. The distal phalanx not well visualized. Cannot exclude osteomyelitis. 2: Extra-articular fracture left fifth proximal phalanx. Duplex Scan Lower Extremity Artery 11/26/24 13:53 IMPRESSION: 1. No evident hemodynamically significant stenosis either by follow-up elevation of peak systolic velocities or by direct visualization grayscale imaging with brisk systolic upstrokes arteries of the bilateral lower limbs. Labs Labs: Laboratory Tests 11/29/24 05:07 11/29/24 05:07 Calcium 7.6 L Total Bilirubin 0.9 AST 37 ALT 97 H Alkaline Phosphatase 141 H C-Reactive Protein 21.4 H Total Protein 6.1 L Albumin 2.8 L Vancomycin Trough 16.8 Microbiology 11/26/24 13:39 Foot - Unspecified Anaerobic Culture - Preliminary 11/26/24 13:39 Foot - Unspecified Aerobic Culture - Preliminary Staphylococcus aureus 11/26/24 13:49 Blood Blood Culture - Final Methicillin Resis Staph Aureus 11/28/24 11:10 Blood Blood Culture - Preliminary 11/28/24 11:17 Blood Blood Culture - Preliminary
--- NOTE | 2024-11-29 11:26 | PCSTNOTE ---
Attempted to schedule the MBS but pt was in dialysis then NPO for surgery. ST will do MBS tomorrow 11/30
[2024-11-29] MEDS: EPOETIN ALFA-EPBX 10,000 UNITS/ML VIAL 10000 UNITS IV PUSH (11:35)
[2024-11-29 13:34] LABS: Glucose Point of Care 106 mg/dl (65-105)
--- NOTE | 2024-11-29 14:53 | PC.NURSE ---
Pt to sugeyr via bed.
--- NOTE | 2024-11-29 15:10 | P.PNAN_ITS ---
Anes - Initial Pre Proc Eval Procedure: Operation Date: 11/29/24 16:00 Proposed Procedures p Left Second Toe Transmetatarsal Amputation - Kaveh Goodson MD Date/Time: 11/29/24 15:10 Surgeon: Corby Aly MD Pre Op Diagnosis: Gangrenous 2nd digit,diabetic,end-stage renal dis Patient Data Age: 59 Gender: M Height: 1.8 m Weight: 87.7 kg Last Vital Signs Temp 36.5 C 11/29/24 12:15 Pulse 74 11/29/24 12:15 Resp 18 11/29/24 12:15 BP 159/78 H 11/29/24 12:15 Pulse Ox 100 11/29/24 08:00 O2 Del Method Room Air 11/29/24 08:00 Allergies Allergy/AdvReac Type Severity Reaction Status Date / Time tree nut Allergy Intermediate Itching Verified 11/26/24 19:01 Penicillins Allergy Unknown Unknown Verified 11/26/24 19:01 Home Medications ?Medication ?Instructions ?Recorded ?Confirmed ?Type amlodipine 10 mg tablet 10 mg PO DAILY 01/25/22 11/26/24 History atorvastatin 80 mg tablet 80 mg PO DAILY 01/25/22 11/26/24 History carvedilol 25 mg tablet 25 mg PO BID 01/25/22 11/26/24 History clopidogrel 75 mg tablet 75 mg PO DAILY 01/25/22 11/26/24 History hydralazine 50 mg tablet 50 mg PO TID 08/11/23 11/26/24 History Laboratory Tests 11/28/24 11/28/24 11/29/24 17:00 20:49 05:07 WBC 15.9 H K/mm3 (4.5-10.0) RBC 2.94 L M/mm3 (4.6-6.20) Hgb 8.7 L g/dL (14.0-18.0) Hct 26.6 L % (42.0-52.0) MCV 90.5 fl (80-100) MCH 29.6 pg (26-34) MCHC 32.7 g/dl (32-36) RDW 14.1 % (11.5-14.5) Plt Count 174 k/mm3 (150-375) MPV 11.1 H fl (7.4-10.4) Immature Gran % (Auto) 2.1 H % (0-0.5) Neut % (Auto) 81.8 H % (45.5-73.1) Lymph % (Auto) 6.2 L % (18.3-44.2) Lander % (Auto) 8.6 H % (2.6-8.5) Eos % (Auto) 1.0 % (0-4.4) Baso % (Auto) 0.3 % (0.2-1.2) Lymph # (Auto) 0.99 K/mm3 (0.9-3.2) Lander # (Auto) 1.4 H K/mm3 (0.1-0.6) Eos # (Auto) 0.2 K/mm3 (0-0.3) Baso # (Auto) 0.0 K/mm3 (0.0-0.1) Abs Immat Gran (auto) 0.34 H K/mm3 (0.00-0.031) Absolute Neuts (auto) 13.0 H K/mm3 (1.3-6.7) Absolute Nucleated RBC 0.000 K/mm3 (0.0-0.012) Nucleated RBC % 0.0 % (0.0-0.2) Sodium 135 L mmol/L (137-145) Potassium 3.7 mmol/L (3.4-5.0) Chloride 101 mmol/L (98-107) Carbon Dioxide 21 L mmol/L (22-30) Anion Gap 13 H mmol/L (4-12) BUN 68 H D mg/dL (9-20) Creatinine 7.58 H mg/dL (0.7-1.3) Estim Creat Clear Calc 11 ml/min Estimated GFR 7 L (59 - ) Glucose 142 H mg/dL (65-110) POC Capillary Glucose 165 H mg/dl 166 H mg/dl (65-105) (65-105) Calcium 7.6 L mg/dL (8.4-10.2) Total Bilirubin 0.9 mg/dL (0.2-1.3) AST 37 U/L (17-59) ALT 97 H U/L (6-50) Alkaline Phosphatase 141 H U/L (38-126) C-Reactive Protein 21.4 H mg/dL (<1.0) Total Protein 6.1 L g/dL (6.3-8.2) Albumin 2.8 L g/dL (3.5-5.1) Vancomycin Trough 16.8 ug/mL (10.0-20.0) 11/29/24 13:26 WBC RBC Hgb Hct MCV MCH MCHC RDW Plt Count MPV Immature Gran % (Auto) Neut % (Auto) Lymph % (Auto) Lander % (Auto) Eos % (Auto) Baso % (Auto) Lymph # (Auto) Lander # (Auto) Eos # (Auto) Baso # (Auto) Abs Immat Gran (auto) Absolute Neuts (auto) Absolute Nucleated RBC Nucleated RBC % Sodium Potassium Chloride Carbon Dioxide Anion Gap BUN Creatinine Estim Creat Clear Calc Estimated GFR Glucose POC Capillary Glucose 106 H mg/dl (65-105) Calcium Total Bilirubin AST ALT Alkaline Phosphatase C-Reactive Protein Total Protein Albumin Vancomycin Trough Patient hx anesthesia problems: none Family hx anesthesia problems: none Results Review: All pre-operative results and documents have been reviewed as part of the pre- operative evaluation. [facility] Past Medical History Medical History (Updated 11/29/24 @ 15:11 by Jordan Lomas DO) Aortic stenosis mod to severe Tobacco abuse Elevated d-dimer Heart failure with preserved ejection fraction Echo in November 2022 showed normal LV size and function with an EF of 50 to 55%, mildly increased left ventricular wall thickness, and grade 2 diastolic dysfunction. 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 Cerebrovascular accident (02/2019) Anxiety Hyperlipidemia Hypertension Surgical History Surgical History History of cardiac catheterization (2019) History of colonoscopy with polypectomy Family History Family History Mother Carcinoma of colon Father Family history of diabetes mellitus in first degree relative Grandparent Diabetes mellitus Social History Social History Social History: Surrogate medical decision maker: Raina Yun, sibling. Code status: Do not resuscitate. Smoking packs per day: 0.5 Smoking cigarettes per day: 10.0 Years smoked: 40 Smoking pack-years: 20.00 Smoking status: Current every day smoker Alcohol intake: never Substance use: never Substance use type: does not use Do You Feel Safe in your Home?: Yes Lack of Transportation: YES Lack of Food: Never True Current Housing: I Have Housing Concerned About Future Housing: No Difficulty Paying Gas/Electric Bills: No Difficulty Paying for Meds: No Currently Unemployed: No Education: High School Diploma/GED Difficulty w/ Childcare or Family Care: No Living arrangements: with family Additional living arrangements comments: Lives in [place]. Has 4 children. [employer]. Additional occupation/education comments: [employer]. Spiritual care concerns: No Anes - Eval Final PreProcedure Day of Procedure 11/29/24 15:10 Patient weight: overweight Heart: regular rate and rhythm Lungs: clear to auscultation Airway: Mallampati scale class III Neurological: alert and oriented Last oral intake: >/= 8 hours ASA classification: IV Emergent: no Anesthetic plan: proceed Anesthesia type and monitoring: general LMA and standard monitoring Results Review: All pre-operative results and documents have been reviewed as part of the pre- operative evaluation. Informed Consent: The patient's anesthetic plan and its attendant risks and benefits were discussed with the patient/family/POA. Questions were solicited and answers provided to the satisfaction of the patient/family/POA.
[2024-11-29 15:15] LABS: Glucose Point of Care 108 mg/dl (65-105)
[2024-11-29] MEDS: SODIUM CHLORIDE 0.9% IV 500 ML 30 ML IV CONT (15:15)
--- NOTE | 2024-11-29 15:36 | WPDHPUPDATE1 ---
History and Physical Update Update Date/Time: 11/29/24 15:36 History and Physical has been reviewed, including an updated exam of the patient. There are NO changes in the patient's condition. Risks, benefits, and alternatives have been discussed and questions answered. Patient agrees to proceed with procedure.
--- NOTE | 2024-11-29 16:10 | S_PTH ---
PATIENT: Savage Yun LOC: [id number] U#:[id number] AGE/SX: 59/M ROOM: 348 RE11/26/[address]: Wiley Means MD : 1965 BED: 01 DIS: 12/11/2024 SPEC #: [id number] RECD: 11/30/24 07:47 STATUS: LUCITA REQ #: [id number] NATHANIEL: 11/29/24 16:[address]: Kaveh Goodson DEPT: [facility] Surgical RECD BY: Elvis Gonzales ENTERED: 11/30/24 07:47 SP TYPE: Surgical OTHR DR: Yovanny Morris, MD Sharon Pappas, MD Maliha Bragg, PAHeavenly Tissues: A - Toe B - Toe Procedures: Hematoxylin and Eosin Stain Gross and Microscopic Level 4 Decalcification
--- NOTE | 2024-11-29 17:11 | W.PM.PROC2 ---
Procedure Note - Detailed Date of Procedure 11/29/24 Pre-op Diagnosis Gangrenous left 2nd toe with diabetic foot infection Post-op Diagnosis Same ( gangrenous left 2nd toe with necrotizing soft tissue infection) Procedure Performed open transmetatarsal amputation left 2nd toe Surgeon Kaveh Goodson MD Organizational Effectiveness Consultant Gerald bernal MALE INFERTILITY SPECIALIST Anesthesia General ( LMA) Indications patient presented with a diabetic foot infection and gangrene of his left 2nd toe. He was treated with antibiotics but blood cultures from admission have shown MRSA. He is taken to surgery now for left 2nd toe amputation Findings there was a lot of necrotic tissue on the distal foot proximal to the left 2nd toe. Some of this extended to the 3rd toe. There was necrotic tissue with purulence and evidence of ischemia extending down on to the metatarsal. Amputation was extended from just the gangrenous 2nd toe on to the 2nd metatarsal to excise all the infected and necrotic tissue Description of Procedure patient was taken to surgery. Anesthesia was introduced. The left foot was prepped and draped. an ellipse oriented anterior posterior was made around the base of the left 2nd toe. The tissue under the toe was necrotic with evidence of ischemia and purulent fluid. I excised the necrotic toe dividing the proximal phalanx distally. I was then able to remove the gangrenous 2nd toe. But the infection extended proximally on the dorsum of foot and slightly lateral to the 3rd toe base. I had to extend the excision of tissue in IV fashion more proximal on the 2nd metatarsal. I also excised the necrotic tissue edging towards the 3rd toe. There was purulent fluid and necrotic tissue associated with removal of this tissue. It left the 2nd metatarsal exposed. I then used the bone cutter and divided the 2nd metatarsal in its proximal aspect to remove the exposed bone. I then excised some additional infected and ischemic tissue from the area. I culture the wound for aerobes, anaerobes, and Gram stain. The skin edges did not seem to have much bleeding, worrisome for involvement or peripheral vascular perfusion defects. I continued excising gangrenous and purulent tissue until the wound was clean. I then irrigated the wound with warm saline. I used rongeur years to smooth the end of the metatarsal. We then packed the 2nd metatarsal wound with 1 in iodoform Nu Gauze. Bulky fluff dressing was placed over the packing in on the foot. ABDs and Kerlix roll were then placed. Patient was then awakened and taken to recovery in stable condition. Sponge and needle counts were correct x2. Estimated Blood Loss -5 Drains No Packing Yes ( 1 in iodoform Nu Gauze) Pathology Yes ( gangrenous left 2nd toe, left 2nd metatarsal) Complications None Condition Stable Disposition PACU [facility] Billing Surgery - Charge Forward: Surgery Billing ( open transmetatarsal amputation left 2nd toe)
[2024-11-29 17:23] LABS: Glucose Point of Care 103 mg/dl (65-105)
[2024-11-29] MEDS: MORPHINE SULFATE (*CRX) 4 MG/ML INJ 2 MG IV PUSH (18:20)
[2024-11-29] MEDS: cefTRIAXone 2 GM/NS 100 ML 2 GM/100 ML BAG IVPB (18:21)
[2024-11-29] MEDS: LACTATED RINGERS 1,000 ML 80 ML IV CONT (18:59)
[2024-11-29] MEDS: VANCOMYCIN 750 MG/NS 250 ML BAG 250 MG IVPB (18:59)
[2024-11-29] MEDS: MUPIROCIN 2% OINT 22 GM TUBE 1 APPLIC EACH NARE (20:28)
[2024-11-29] MEDS: SENNA/DOCUSATE SODIUM TABLET 2 TAB PO (20:29)
[2024-11-29] MEDS: carvediloL 25 MG TABLET PO (20:29)
[2024-11-30] VITALS (12 sets, daily range): BP systolic 115–190; BP diastolic 55–88; PULSE 59–66; RESP 16–20; TEMP 36.3–37.1; O2SAT 92–97
[2024-11-30] MEDS: MORPHINE SULFATE (*CRX) 4 MG/ML INJ 2 MG IV PUSH (01:32)
[2024-11-30 05:48] LABS: Basophils Percent Auto 0.2 % (0.2-1.2); Eosinophils Absolute Auto 0.3 K/mm3 (0-0.3); Eosinophils Percent Auto 1.8 % (0-4.4); Hematocrit 26.2 % (42.0-52.0); Hemoglobin 8.4 g/dL (14.0-18.0); Immature Granulocyte Absolute 0.34 K/mm3 (0.00-0.031); Immature Granulocyte Percent A 2.4 % (0-0.5); Lymphocytes Absolute Auto 1.13 K/mm3 (0.9-3.2); Lymphocytes Percent Auto 7.9 % (18.3-44.2); Mean Corpuscular HGB Conc 32.1 g/dl (32-36); Mean Corpuscular Hemoglobin 29.6 pg (26-34); Mean Corpuscular Volume 92.3 fl (80-100); Mean Platelet Volume 10.9 fl (7.4-10.4); Monocytes Absolute Auto 1.4 K/mm3 (0.1-0.6); Neutrophils Absolute Auto 11.2 K/mm3 (1.3-6.7); Neutrophils Percent Auto 77.7 % (45.5-73.1); Nucleated Red Blood Cells Perc 0.2 % (0.0-0.2); Platelet Count Result 199 k/mm3 (150-375); Red Blood Count 2.84 M/mm3 (4.6-6.20); Red Cell Distribution Width 14.6 % (11.5-14.5); White Blood Count 14.3 K/mm3 (4.5-10.0)
[2024-11-30 06:19] LABS: Estimated CRCL calculation 16 ml/min; Estimated Glomerular Filt Rate 12
[2024-11-30 06:40] LABS: Glucose Point of Care 165 mg/dl (65-105)
--- NOTE | 2024-11-30 07:33 | P.PNIM_ITS ---
Progress Note: A&P Assessment and Plan (1) Encephalopathy: Code(s): G93.40 - Encephalopathy, unspecified Status: Acute Assessment and Plan: Severely lethargic with a right side lean and associated right gaze. His voice was increasingly garbled and his responses were slow. Remained AOx3 with otherwise benign neuro exam. Likely metabolic vs drug induced (received morphine overnight) encephalopathy - Morphine discontinued - ABG: pH 7.538, pCO2 35.8, pO2 53.2, HCO3 29.8. Started on 2L NC for hypoxemia. - MRSA positive. Bactroban nares ordered. - Lactic WNL. Procal elevated at 6.1. Glucose WNL. - Head CT: Unchanged small old infarcts in the right frontal lobe, abdelrahman, right lentiform nucleus and left thalamus. No acute intracranial process. Age-related changes including mild diffuse volume loss and moderate scattered white matter hypoattenuation consistent with chronic small vessel ischemic disease. - CXR: Opacities in the right mid and lower lung zones which could represent atelectasis, aspiration and/or pneumonia. Small right pleural effusion. - Antibiotics: Cefepime, Flagyl and vancomycin - Monitor CBC, CMP, magnesium, troponin, and lipid profile - Monitor blood pressure, allow for permissive hypertension. - Telemetry monitoring - Monitor blood glucose (2) Bacteremia: Code(s): R78.81 - Bacteremia Status: Acute Assessment and Plan: Blood cultures obtained 11/26: staph aureus, sensitivities pending Patient remains on vancomycin Echo ordered to rule out endocarditis LVEF 60-65% with abnormal diastolic function and an abnormal appearing aortic valve that is heavily calcified and has at least moderate stenosis. Repeat blood cultures on 11/28 growing gram + cocci Cardiology consulted for potential KATLIN given continued bacteremia Repeat blood cultures on 12/01 to reassess bacteremia (two days following source control). If cultures remain positive despite source control and KATLIN being negative consider other source, such as fistula. Patient has no other lines. (3) Aspiration pneumonia: Code(s): J69.0 - Pneumonitis due to inhalation of food and vomit Status: Acute Assessment and Plan: Per patient son, the patient has been coughing with meals for a few months. CXR: Opacities in the right mid and lower lung zones which could represent atelectasis, aspiration and/or pneumonia. Small right pleural effusion. - antibiotics: cefepime, Flagyl and vancomycin - Viral PCR: negative for Flu/COVID/RSV - MRSA positive. Bactroban nares ordered. - ABG: pH 7.538, pCO2 35.8, pO2 53.2, HCO3 29.8. Started on 2L NC for hypoxemia. - Patient failed MBS. Last meal 11/29. Remains NPO on D5NS. Speech therapy following. Discussed with him that ST is following and if able we will reattempt a swallow study in the future. If patient continues to fail and has to remain NPO we would then need to discuss alternative forms of nutrition and potential PEG placement vs hospice. - Monitor vital signs, I&Os, neuro status and patient is a fall risk - Follow WBC, serum electrolytes, temperature curves and cultures (4) Diabetic infection of left foot: Code(s): E11.628 - Type 2 diabetes mellitus with other skin complications; L08.9 - Local infection of the skin and subcutaneous tissue, unspecified Status: Acute Assessment and Plan: Erythema and edema to the dorsal aspect of the left foot extending to the ankle. Unable to palpate DP pulses. Black foul smelling 2nd toe of the left foot. - Antibiotics: vancomycin (pharmacy to dose) and cefepime 2g following dialysis, started on Flagyl given possible anaerobic concern. Cefepime and flagyl transitioned to rocephin on 11/29 after discussing with [facility] pharmacy. - Foot XR left showed moderate soft tissue swelling of the second digit with poor visualization fo the distal phalanx. Osteomyelitis cannot be rule out. Also extra articular fracture to the left fifth proximal phalanx noted. - Duplex showed No evident hemodynamically significant stenosis either by follow-up elevation of peak systolic velocities or by direct visualization grayscale imaging with brisk systolic upstrokes arteries of the bilateral lower limbs. - Monitor vital signs, I&Os, neuro status and patient is a fall risk - Monitor serum electrolytes, CBC, cultures, WBC and temp curve - Surgery consulted Agree with broad spectrum antibiotics s/p open transmetatarsal amputation left 2nd toe on 11/[address] Goodson Antibiotics transitioned back to cefepime and flagyl on 11/30 given aspiration pneumonia and worsening exam. (5) Gangrenous toe: Code(s): I96 - Gangrene, not elsewhere classified Status: Acute Assessment and Plan: See plan above #1 diabetic infection of left foot Surgery consulted Agree with broad spectrum antibiotics s/p open transmetatarsal amputation left 2nd toe on 11/[address] Goodson (6) Aortic stenosis: Code(s): I35.0 - Nonrheumatic aortic (valve) stenosis Status: Acute Assessment and Plan: Echo ordered to rule out endocarditis LVEF 60-65% with abnormal diastolic function and an abnormal appearing aortic valve that is heavily calcified and has at least moderate stenosis. Recommend cardiology follow up outpatient. Checked tele monitor and patient had intermittent PVCs, remains asymptomatic and stable. Mag and K WNL. Carvedilol 25 mg BID placed on hold. Discussed with cardiology Dr. Michelle and will monitor. (7) Type 2 diabetes mellitus: Code(s): E11.9 - Type 2 diabetes mellitus without complications Status: Acute Assessment and Plan: - hypoglycemia protocol - POC blood glucose ACHS - home medication - none - correct regimen ordered - low dose TIDWM and HS - A1C 5.9 (8) Anemia: Code(s): D64.9 - Anemia, unspecified Status: Chronic Assessment and Plan: Chronic, likely secondary to ESRD H/H 11.5/35.7 on admission, 8.4/26.2 on am labs Given epoetin 10,000 units x1 on 11/27 No signs of active bleeding (9) Carotid artery disease: Qualifiers: Carotid artery disease type: stenosis Laterality: unspecified laterality Qualified Code(s): I65.29 - Occlusion and stenosis of unspecified carotid artery Code(s): I77.9 - Disorder of arteries and arterioles, unspecified Status: Chronic Assessment and Plan: Chronic, currently holding plavix for plan of toe amputation with surgery (10) Hypertension: Qualifiers: Hypertension type: unspecified Qualified Code(s): I10 - Essential (primary) hypertension Code(s): I10 - Essential (primary) hypertension Status: Chronic Assessment and Plan: Chronic, continue home medications - amlodipine 10 mg daily, coreg 25 mg BID, hydralazine 50 mg TID placed on hold due to patient NPO - hydralazine 10 mg IV PRN - blood pressures stable, continue to monitor Discussed patients antihypertensives with Dr. Michelle. Patient transitioned to IV hydralazine PRN. (11) End stage renal disease on dialysis: Code(s): N18.6 - End stage renal disease; Z99.2 - Dependence on renal dialysis Status: Acute Assessment and Plan: ESRD on dialysis [facility] Nephrology consulted (12) Heart failure with preserved ejection fraction: Qualifiers: Heart failure chronicity: unspecified Qualified Code(s): I50.30 - Unspecified diastolic (congestive) heart failure Code(s): I50.30 - Unspecified diastolic (congestive) heart failure Status: Chronic Assessment and Plan: Chronic, does not appear in acute exacerbation Echo 07/2023 showed LVEF 40-45% with grade 2 diastolic dysfunction Echo ordered to rule out endocarditis LVEF 60-65% with abnormal diastolic function and an abnormal appearing aortic valve that is heavily calcified and has at least moderate stenosis. Plan to follow up with primary [facility] technical [facility] outpatient Time Spent With Patient Time with patient: Greater than 35 minutes Subjective Date/time seen: 11/30/24 07:33 Interval history: 59 year old male with past medical history of HTN, CAD, CVA, CHF, and ESRD on dialysis presents to the hospital with complaint of a black left toe. Patient remains AOx3 on assessment however he was noted to be severely lethargic with a right side lean and associated right gaze. His voice was increasingly garbled and his responses were slow. He had no complaints at this time. Vitals stable. Glucose WNL. CBC showed improved WBC and stable H/H. CMP unremarkable besides known ESRD. Lactic WNL. Procal elevated. Given recent surgery and other comorbidities a head ct was obtained and unremarkable. Patient noted to have coarse lung sounds different from prior exams though he did not endorse shortness of breath. CXR showed aspiration pneumonia. ABG showed respiratory alkalosis with hypoxemia. Started on 2L NC. Return to patient's room to reassess. He remains AO x3 and is less lethargic at time of reassessment. He continues to have garbled speech and but the right lean and gaze has seemingly resolved. The rest of neuro exam remains benign. Patient again had no complaints at that time. Discussed with patient that he is being treated for aspiration pneumonia and that he failed his MBS. He remains on D5NS at this time. Discussed with him that ST is following and if able we will reattempt a swallow study in the future. If patient continues to fail a swallow study and has to remain NPO we would then need to discuss alternative forms of nutrition and potential PEG placement vs hospice. He stated understanding. Review of Systems Review of Systems: All systems reviewed & are unremarkable except as noted in HPI and below Exam Narrative: AF HR 62 RR 18 SPO2 92 BP 118/57 General: male in no acute respiratory distress who is nontoxic appearing, lying in bed HEENT: Normocephalic. Atraumatic. Extraocular movement intact. Sclera clear and anicteric. No facial asymmetry. Chest: Lungs are coarse with crackles to auscultation bilaterally. CV: Heart was regular rate and rhythm. S1/S2. No murmurs, gallops, or rubs. Abd: Abdomen was soft. Nontender. Nondistended. Positive bowel sounds. Ext: Erythema and edema to the dorsal aspect of the left foot extending to the ankle, improved since yesterday. Unable to palpate DP pulses. Black foul smelling 2nd toe of the left foot. Neuro: Patient remains AOx3 on assessment however he was noted to be severely lethargic with a right side lean and associated right gaze. His voice was increasingly garbled and his responses were slow. Objective Data Vital Signs Vital Signs: Vital Signs - 24 hr 11/29/24 08:00 11/29/24 08:00 11/29/24 08:23 Temperature 97.7 F Pulse Rate 64 64 64 Respiratory Rate 18 18 Blood Pressure 153/76 H Pulse Oximetry 100 Oxygen Delivery Room Air Oxygen Flow Rate 11/29/24 08:35 11/29/24 08:45 11/29/24 09:00 Temperature Pulse Rate 64 63 64 Respiratory Rate Blood Pressure 138/72 143/77 H 147/74 H Pulse Oximetry Oxygen Delivery Oxygen Flow Rate 11/29/24 09:15 11/29/24 09:30 11/29/24 09:45 Temperature Pulse Rate 65 69 68 Respiratory Rate Blood Pressure 131/64 146/78 H 161/71 H Pulse Oximetry Oxygen Delivery Oxygen Flow Rate 11/29/24 10:00 11/29/24 10:15 11/29/24 10:30 Temperature Pulse Rate 72 70 64 Respiratory Rate Blood Pressure 163/78 H 159/72 H 160/78 H Pulse Oximetry Oxygen Delivery Oxygen Flow Rate 11/29/24 10:45 11/29/24 11:00 11/29/24 11:00 Temperature Pulse Rate 70 77 77 Respiratory Rate Blood Pressure 144/59 H 148/79 H 148/79 H Pulse Oximetry Oxygen Delivery Oxygen Flow Rate 11/29/24 11:15 11/29/24 11:30 11/29/24 11:45 Temperature Pulse Rate 73 73 70 Respiratory Rate Blood Pressure 156/70 H 158/74 H 151/75 H Pulse Oximetry Oxygen Delivery Oxygen Flow Rate 11/29/24 12:00 11/29/24 12:08 11/29/24 12:15 Temperature 97.7 F Pulse Rate 69 69 74 Respiratory Rate 18 Blood Pressure 161/75 H 168/89 H 159/78 H Pulse Oximetry Oxygen Delivery Oxygen Flow Rate 11/29/24 15:25 11/29/24 16:27 11/29/24 16:40 Temperature 98.1 F Pulse Rate 77 61 65 Respiratory Rate 14 20 20 Blood Pressure 158/73 H 113/61 149/77 H Pulse Oximetry 96 100 96 Oxygen Delivery Room Air Simple Face Mask Room Air Oxygen Flow Rate 8 11/29/24 16:55 11/29/24 17:10 11/29/24 18:04 Temperature 97.5 F L Pulse Rate 74 66 68 Respiratory Rate 20 20 18 Blood Pressure 148/68 H 146/71 H Pulse Oximetry 97 96 95 Oxygen Delivery Room Air Room Air Oxygen Flow Rate 11/29/24 18:27 11/29/24 19:02 11/29/24 20:00 Temperature 97.7 F 97.9 F Pulse Rate 66 69 Respiratory Rate 18 18 Blood Pressure 146/68 H 153/67 H Pulse Oximetry 96 97 Oxygen Delivery Room Air Oxygen Flow Rate 11/29/24 20:00 11/29/24 20:29 11/29/24 22:25 Temperature 97.7 F Pulse Rate 70 88 69 Respiratory Rate 18 Blood Pressure 161/60 H Pulse Oximetry 97 Oxygen Delivery Oxygen Flow Rate 11/30/24 00:00 11/30/24 04:00 Temperature Pulse Rate 66 65 Respiratory Rate Blood Pressure Pulse Oximetry Oxygen Delivery Oxygen Flow Rate Intake/Output Intake/Output: Intake & Output 11/27/24 11/28/24 11/29/24 11/30/24 23:59 23:59 23:59 23:59 Intake Total 3578 1780 376 Output Total 1999 2599 Balance 1578 8450 -9936 Meds/Results Medications: Active Medications Generic Name Dose Route Start Last Admin Trade Name Freq PRN Reason Stop Dose Admin Acetaminophen 500 mg 11/29/24 17:35 Acetaminophen 500 Mg Tablet PO Q6H PRN Pain Rated 1-3 Amlodipine Besylate 10 mg 11/27/24 09:00 11/29/24 10:50 Amlodipine Besylate 10 Mg Tablet PO Not Given DAILY LILIAN Atorvastatin Calcium 80 mg 11/27/24 09:00 11/29/24 10:50 Atorvastatin 40 Mg Tablet PO Not Given DAILY LILIAN Carvedilol 25 mg 11/26/24 21:00 11/29/24 20:29 Carvedilol 25 Mg Tablet PO 25 mg Q12HR LILIAN Administration Clopidogrel Bisulfate 75 mg 11/27/24 09:00 Clopidogrel Bisulfate 75 Mg Tablet PO DAILY LILIAN Dextrose 12.5 gm 11/26/24 16:51 Dextrose 50% 25 Gm/50 Ml Syringe IV PUSH PRN PRN Hypoglycemia Protocol Docusate Sodium 100 mg 11/26/24 17:00 11/29/24 17:31 Docusate Sodium 100 Mg Capsule PO Not Given BID LILIAN Glucagon 1 mg 11/26/24 16:51 Glucagon For Inj 1 Mg Vial IM PRN PRN Hypoglycemia Protocol Glucose 15 gm 11/26/24 16:51 Glucose Oral Gel 15 Gm Of Glucse In 37.5 Gm Tube PO PRN PRN Hypoglycemia Protocol Hydralazine HCl 50 mg 11/26/24 17:00 11/29/24 17:31 Hydralazine Hcl 50 Mg Tablet PO Not Given TID LILIAN Dextrose 1,000 mls @ 100 mls/hr 11/26/24 16:51 Dextrose 5% 1,000 Ml IVPB PRN PRN Hypoglycemia Protocol Albumin Human 50 mls @ 999 mls/hr 11/27/24 06:51 Albutein IVPB 12/27/24 06:50 Q10M PRN HYPOTENSION Ceftriaxone Sodium 2 gm in 100 mls @ 200 mls/hr 11/29/24 18:00 11/29/24 18:21 Rocephin 2 Gm/Ns 100 Ml IVPB 200 mls/hr Q24H LILIAN Administration Ibuprofen 800 mg in 200 mls @ 400 mls/hr 11/29/24 17:35 Caldolor 800 Mg/200 Ml IVPB Q6H PRN Breakthrough Pain Rated 1-3 or NPO Lactated Ringer's 1,000 mls @ 80 mls/hr 11/29/24 17:35 11/29/24 18:59 Lr - Lactated Ringers Iv IV CONT 80 mls/hr .[id number] [facility] Administration Insulin Aspart 2 - 5 units 11/27/24 08:00 11/29/24 17:03 Insulin Aspart (*Bkc) 100 Units/Ml SUB-Q Not Given TIDWM [facility] Protocol Morphine Sulfate 1 mg 11/29/24 17:35 Morphine Sulfate (*Crx) 2 Mg/Ml Inj IV PUSH Q2H PRN Breakthrough Pain Rated 4-6 or NPO Morphine Sulfate 2 mg 11/29/24 17:35 11/30/24 01:32 Morphine Sulfate (*Crx) 4 Mg/Ml Inj IV PUSH 2 mg Q2H PRN Administration Breakthrough Pain Rated 7-10 or NPO Mupirocin 1 applic 11/28/24 09:00 11/29/24 20:28 Mupirocin 2% Oint 22 Gm Tube EACH NARE 12/02/24 21:01 1 applic Q12HR LILIAN Administration Naloxone HCl 0.1 mg 11/29/24 17:35 Naloxone Hcl 0.4 Mg/Ml Vial IV PUSH Q2M PRN Opiate Reversal Ondansetron HCl 4 mg 11/26/24 14:10 Ondansetron Inj 4 Mg/2 Ml Vial IV PUSH Q4H PRN Nausea Oxycodone/Acetaminophen 0.5 tablet 11/29/24 17:35 Oxycodone/Acetaminophen (*Crx) 5-325 Mg Tablet PO Q4H PRN Pain Rated 4-6 Polyethylene Glycol 17 gm 11/30/24 09:00 Polyethylene Glycol 3350 17 Gm Powd.Pack PO QAM LILIAN Senna/Docusate Sodium 2 tab 11/29/24 21:00 11/29/24 20:29 Senna/Docusate Sodium Tablet PO 2 tab HS LILIAN Administration Vancomycin HCl 1 each 11/26/24 13:16 Vancomycin For Hemodialysis IVPB PRN PRN Vancomycin Protocol Radiology Results: ITS Impressions Foot X-Ray 11/26/24 12:58 Impression: 1: Moderate soft tissue swelling of the second digit. The distal phalanx not well visualized. Cannot exclude osteomyelitis. 2: Extra-articular fracture left fifth proximal phalanx. Duplex Scan Lower Extremity Artery 11/26/24 13:53 IMPRESSION: 1. No evident hemodynamically significant stenosis either by follow-up elevation of peak systolic velocities or by direct visualization grayscale imaging with brisk systolic upstrokes arteries of the bilateral lower limbs. Labs Labs: Laboratory Results - last 24 hr 11/29/24 11/29/24 11/29/24 13:26 15:13 16:47 WBC RBC Hgb Hct MCV MCH MCHC RDW Plt Count MPV Immature Gran % (Auto) Neut % (Auto) Lymph % (Auto) [place] % (Auto) Eos % (Auto) Baso % (Auto) Lymph # (Auto) [place] # (Auto) Eos # (Auto) Baso # (Auto) Abs Immat Gran (auto) Absolute Neuts (auto) Absolute Nucleated RBC Nucleated RBC % Creatinine Estim Creat Clear Calc Estimated GFR POC Capillary Glucose 106 H 108 H 103 11/29/24 11/30/24 21:53 05:40 WBC 14.3 H RBC 2.84 L Hgb 8.4 L Hct 26.2 L MCV 92.3 MCH 29.6 MCHC 32.1 RDW 14.6 H Plt Count 199 MPV 10.9 H Immature Gran % (Auto) 2.4 H Neut % (Auto) 77.7 H Lymph % (Auto) 7.9 L [place] % (Auto) 10.0 H Eos % (Auto) 1.8 Baso % (Auto) 0.2 Lymph # (Auto) 1.13 [place] # (Auto) 1.4 H Eos # (Auto) 0.3 Baso # (Auto) 0.0 Abs Immat Gran (auto) 0.34 H Absolute Neuts (auto) 11.2 H Absolute Nucleated RBC 0.030 H Nucleated RBC % 0.2 Creatinine 4.98 H Estim Creat Clear Calc 16 Estimated GFR 12 L POC Capillary Glucose 165 H Quality VTE Prophylaxis VTE prophylaxis: mechanical ordered
[2024-11-30] MEDS: DOCUSATE SODIUM 100 MG CAPSULE PO (08:29)
[2024-11-30] MEDS: carvediloL 25 MG TABLET PO (08:29)
[2024-11-30] MEDS: polyethylene glycoL 3350 17 GM POWD.PACK PO (08:29)
[2024-11-30] MEDS: hydrALAZINE HCL 50 MG TABLET PO (08:30)
[2024-11-30] MEDS: ATORVASTATIN 40 MG TABLET 80 MG PO (08:30)
[2024-11-30] MEDS: ACETAMINOPHEN 500 MG TABLET PO (08:30)
[2024-11-30] MEDS: amLODIPine BESYLATE 10 MG TABLET PO (08:30)
[2024-11-30 08:35] LABS: Glucose Point of Care 150 mg/dl (65-105)
[2024-11-30] MEDS: MUPIROCIN 2% OINT 22 GM TUBE 1 APPLIC EACH NARE ×2 (08:37→20:47)
--- NOTE | 2024-11-30 08:47 | PM.PNGS ---
Progress Note: A&P Assessment and Plan (1) Gangrene of toe of left foot: Code(s): I96 - Gangrene, not elsewhere classified Status: Acute Assessment and Plan: wound looks clean postop day 1. Dressing changed. Follow closely for further ischemic change or recurrent infection (2) Necrotizing soft tissue infection: Code(s): M79.89 - Other specified soft tissue disorders Status: Acute (3) MRSA bacteremia: Code(s): R78.81 - Bacteremia; B95.62 - Methicillin resistant Staphylococcus aureus infection as the cause of diseases classified elsewhere Status: Acute (4) Chronic kidney disease (CKD), stage V: Code(s): N18.5 - Chronic kidney disease, stage 5 Status: Chronic (5) Diabetic infection of left foot: Code(s): E11.628 - Type 2 diabetes mellitus with other skin complications; L08.9 - Local infection of the skin and subcutaneous tissue, unspecified Status: Acute (6) Antiplatelet or antithrombotic long-term use: Code(s): 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 Some dusky areas both medial and lateral) Details: other ( no purulent drainage, no blackened areas as yet.) Objective Data Vital Signs Vital Signs: Vital Signs - 24 hr 11/29/24 09:00 11/29/24 09:15 11/29/24 09:30 Temperature Pulse Rate 64 65 69 Respiratory Rate Blood Pressure 147/74 H 131/64 146/78 H Pulse Oximetry Oxygen Delivery Oxygen Flow Rate 11/29/24 09:45 11/29/24 10:00 11/29/24 10:15 Temperature Pulse Rate 68 72 70 Respiratory Rate Blood Pressure 161/71 H 163/78 H 159/72 H Pulse Oximetry Oxygen Delivery Oxygen Flow Rate 11/29/24 10:30 11/29/24 10:45 11/29/24 11:00 Temperature Pulse Rate 64 70 77 Respiratory Rate Blood Pressure 160/78 H 144/59 H 148/79 H Pulse Oximetry Oxygen Delivery Oxygen Flow Rate 11/29/24 11:00 11/29/24 11:15 11/29/24 11:30 Temperature Pulse Rate 77 73 73 Respiratory Rate Blood Pressure 148/79 H 156/70 H 158/74 H Pulse Oximetry Oxygen Delivery Oxygen Flow Rate 11/29/24 11:45 11/29/24 12:00 11/29/24 12:08 Temperature Pulse Rate 70 69 69 Respiratory Rate Blood Pressure 151/75 H 161/75 H 168/89 H Pulse Oximetry Oxygen Delivery Oxygen Flow Rate 11/29/24 12:15 11/29/24 15:25 11/29/24 16:27 Temperature 36.5 C 36.7 C Pulse Rate 74 77 61 Respiratory Rate 18 14 20 Blood Pressure 159/78 H 158/73 H 113/61 Pulse Oximetry 96 100 Oxygen Delivery Room Air Simple Face Mask Oxygen Flow Rate 8 11/29/24 16:40 11/29/24 16:55 11/29/24 17:10 Temperature Pulse Rate 65 74 66 Respiratory Rate 20 20 20 Blood Pressure 149/77 H 148/68 H Pulse Oximetry 96 97 96 Oxygen Delivery Room Air Room Air Room Air Oxygen Flow Rate 11/29/24 18:04 11/29/24 18:27 11/29/24 19:02 Temperature 36.4 C L 36.5 C 36.6 C Pulse Rate 68 66 69 Respiratory Rate 18 18 18 Blood Pressure 146/71 H 146/68 H 153/67 H Pulse Oximetry 95 96 97 Oxygen Delivery Oxygen Flow Rate 11/29/24 20:00 11/29/24 20:00 11/29/24 20:29 Temperature Pulse Rate 70 88 Respiratory Rate Blood Pressure Pulse Oximetry Oxygen Delivery Room Air Oxygen Flow Rate 11/29/24 22:25 11/30/24 00:00 11/30/24 02:25 Temperature 36.5 C 36.4 C Pulse Rate 69 66 66 Respiratory Rate 18 16 Blood Pressure 161/60 H 190/88 H Pulse Oximetry 97 94 Oxygen Delivery Oxygen Flow Rate 11/30/24 04:00 11/30/24 06:00 11/30/24 08:29 Temperature 36.3 C L Pulse Rate 65 63 65 Respiratory Rate 18 Blood Pressure 138/61 Pulse Oximetry 96 Oxygen Delivery Oxygen Flow Rate Intake/Output Intake/Output: Intake & Output 11/27/24 11/28/24 11/29/24 11/30/24 23:59 23:59 23:59 23:59 Intake Total 3578 1780 376 400 Output Total 1999 2599 Balance 1577 2160 -2414 400 Meds/Results Medications: Active Medications Generic Name Dose Route Start Last Admin Trade Name Freq PRN Reason Stop Dose Admin Acetaminophen 500 mg 11/29/24 17:35 11/30/24 08:30 Acetaminophen 500 Mg Tablet PO 500 mg Q6H PRN Administration Pain Rated 1-3 Amlodipine Besylate 10 mg 11/27/24 09:00 11/30/24 08:30 Amlodipine Besylate 10 Mg Tablet PO 10 mg DAILY LILIAN Administration Atorvastatin Calcium 80 mg 11/27/24 09:00 11/30/24 08:30 Atorvastatin 40 Mg Tablet PO 80 mg DAILY LILIAN Administration Carvedilol 25 mg 11/26/24 21:00 11/30/24 08:29 Carvedilol 25 Mg Tablet PO 25 mg Q12HR LILIAN Administration Clopidogrel Bisulfate 75 mg 11/27/24 09:00 Clopidogrel Bisulfate 75 Mg Tablet PO DAILY LILIAN Dextrose 12.5 gm 11/26/24 16:51 Dextrose 50% 25 Gm/50 Ml Syringe IV PUSH PRN PRN Hypoglycemia Protocol Docusate Sodium 100 mg 11/26/24 17:00 11/30/24 08:29 Docusate Sodium 100 Mg Capsule PO 100 mg BID LILIAN Administration Glucagon 1 mg 11/26/24 16:51 Glucagon For Inj 1 Mg Vial IM PRN PRN Hypoglycemia Protocol Glucose 15 gm 11/26/24 16:51 Glucose Oral Gel 15 Gm Of Glucse In 37.5 Gm Tube PO PRN PRN Hypoglycemia Protocol Hydralazine HCl 50 mg 11/26/24 17:00 11/30/24 08:30 Hydralazine Hcl 50 Mg Tablet PO 50 mg TID LILIAN Administration Dextrose 1,000 mls @ 100 mls/hr 11/26/24 16:51 Dextrose 5% 1,000 Ml IVPB PRN PRN Hypoglycemia Protocol Albumin Human 50 mls @ 999 mls/hr 11/27/24 06:51 Albutein IVPB 12/27/24 06:50 Q10M PRN HYPOTENSION Ceftriaxone Sodium 2 gm in 100 mls @ 200 mls/hr 11/29/24 18:00 11/29/24 18:21 Rocephin 2 Gm/Ns 100 Ml IVPB 200 mls/hr Q24H LILIAN Administration Ibuprofen 800 mg in 200 mls @ 400 mls/hr 11/29/24 17:35 Caldolor 800 Mg/200 Ml IVPB Q6H PRN Breakthrough Pain Rated 1-3 or NPO Lactated Ringer's 1,000 mls @ 80 mls/hr 11/29/24 17:35 11/29/24 18:59 Lr - Lactated Ringers Iv IV CONT 80 mls/hr .[id number] LILIAN Administration Insulin Aspart 2 - 5 units 11/27/24 08:00 11/30/24 08:37 Insulin Aspart (*Bkc) 100 Units/Ml SUB-Q Not Given TID[facility] Protocol Morphine Sulfate 1 mg 11/29/24 17:35 Morphine Sulfate (*Crx) 2 Mg/Ml Inj IV PUSH Q2H PRN Breakthrough Pain Rated 4-6 or NPO Morphine Sulfate 2 mg 11/29/24 17:35 11/30/24 01:32 Morphine Sulfate (*Crx) 4 Mg/Ml Inj IV PUSH 2 mg Q2H PRN Administration Breakthrough Pain Rated 7-10 or NPO Mupirocin 1 applic 11/28/24 09:00 11/30/24 08:37 Mupirocin 2% Oint 22 Gm Tube EACH NARE 12/02/24 21:01 1 applic Q12HR LILIAN Administration Naloxone HCl 0.1 mg 11/29/24 17:35 Naloxone Hcl 0.4 Mg/Ml Vial IV PUSH Q2M PRN Opiate Reversal Ondansetron HCl 4 mg 11/26/24 14:10 Ondansetron Inj 4 Mg/2 Ml Vial IV PUSH Q4H PRN Nausea Oxycodone/Acetaminophen 0.5 tablet 11/29/24 17:35 Oxycodone/Acetaminophen (*Crx) 5-325 Mg Tablet PO Q4H PRN Pain Rated 4-6 Polyethylene Glycol 17 gm 11/30/24 09:00 11/30/24 08:29 Polyethylene Glycol 3350 17 Gm Powd.Pack PO 17 gm QAM LILIAN Administration Senna/Docusate Sodium 2 tab 11/29/24 21:00 11/29/24 20:29 Senna/Docusate Sodium Tablet PO 2 tab HS LILIAN Administration Vancomycin HCl 1 each 11/26/24 13:16 Vancomycin For Hemodialysis IVPB PRN PRN Vancomycin Protocol Radiology Results: ITS Impressions Foot X-Ray 11/26/24 12:58 Impression: 1: Moderate soft tissue swelling of the second digit. The distal phalanx not well visualized. Cannot exclude osteomyelitis. 2: Extra-articular fracture left fifth proximal phalanx. Duplex Scan Lower Extremity Artery 11/26/24 13:53 IMPRESSION: 1. No evident hemodynamically significant stenosis either by follow-up elevation of peak systolic velocities or by direct visualization grayscale imaging with brisk systolic upstrokes arteries of the bilateral lower limbs. Labs Labs: Laboratory Results - last 24 hr 11/29/24 11/29/24 11/29/24 13:26 15:13 16:47 WBC RBC Hgb Hct MCV MCH MCHC RDW Plt Count MPV Immature Gran % (Auto) Neut % (Auto) Lymph % (Auto) [place] % (Auto) Eos % (Auto) Baso % (Auto) Lymph # (Auto) [place] # (Auto) Eos # (Auto) Baso # (Auto) Abs Immat Gran (auto) Absolute Neuts (auto) Absolute Nucleated RBC Nucleated RBC % Creatinine Estim Creat Clear Calc Estimated GFR POC Capillary Glucose 106 H 108 H 103 11/29/24 11/30/24 11/30/24 21:53 05:40 08:32 WBC 14.3 H RBC 2.84 L Hgb 8.4 L Hct 26.2 L MCV 92.3 MCH 29.6 MCHC 32.1 RDW 14.6 H Plt Count 199 MPV 10.9 H Immature Gran % (Auto) 2.4 H Neut % (Auto) 77.7 H Lymph % (Auto) 7.9 L [place] % (Auto) 10.0 H Eos % (Auto) 1.8 Baso % (Auto) 0.2 Lymph # (Auto) 1.13 [place] # (Auto) 1.4 H Eos # (Auto) 0.3 Baso # (Auto) 0.0 Abs Immat Gran (auto) 0.34 H Absolute Neuts (auto) 11.2 H Absolute Nucleated RBC 0.030 H Nucleated RBC % 0.2 Creatinine 4.98 H Estim Creat Clear Calc 16 Estimated GFR 12 L POC Capillary Glucose 165 H 150 H
--- NOTE | 2024-11-30 09:25 | PM.CNCAR ---
Assessment and Plan Assessment and plan (1) MRSA bacteremia: Code(s): R78.81 - Bacteremia; B95.62 - Methicillin resistant Staphylococcus aureus infection as the cause of diseases classified elsewhere Status: Acute Plan 1. MRSA bacteremia 2. Gangrenous toe, diabetes infection of foot s/p open transmetatarsal amputation of left second toe on 11/29 3. Moderate aortic stenosis, possibly severe per TTE 4. ESRD on HD 5. Diabetes mellitus 6. History of stroke 7. Hypertension 8. Hyperlipidemia 9. Carotid artery disease 10. Chronic heart failure with preserved LVEF PLAN: -Discussed KATLIN with the patient, who is agreeable to proceed. Will schedule KATLIN. Recommendations and plan discussed with Hospitalist. History of Present Illness History of Present Illness Consult date/time: 11/30/24 09:25 Requesting physician: Maliha Bragg PA-C Consult reason: Other (KATLIN) Reason For Visit: Gangrenous 2nd digit,diabetic,end-stage renal dis Narrative: We are consulted for KATLIN for persistent bacteremia. Savage is a 59 year old male with ESRD on HD, diabetes mellitus, history of stroke, hypertension, hyperlipidemia, carotid artery disease, chronic heart failure with preserved LVEF who is admitted with gangrenous toe, diabetes infection of foot, and MRSA bacteremia. Underwent open transmetatarsal amputation of left second toe on 11/29. Has had persistent bacteremia, therefore, KATLIN requested to rule out infective endocarditis. Echocardiogram this admission shows: LVEF 60-65%. Mild AR Heavily calcified aortic valve, possibly bicuspid. At least moderate , possibly severe given mean gradient of 44mmHg. Mild-moderate MR. Mild TR. Mild MD. EKG with sinus rhythm, LVH with secondary STTW abnormality. Telemetry with sinus rhythm with occasional PVCs. Review of Systems Review of Systems: All systems reviewed & are unremarkable except as noted in HPI and below (HPI) [facility] Past Medical History Medical History Aortic stenosis mod to severe Tobacco abuse Elevated d-dimer Heart failure with preserved ejection fraction Echo in November 2022 showed normal LV size and function with an EF of 50 to 55%, mildly increased left ventricular wall thickness, and grade 2 diastolic dysfunction. 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 Cerebrovascular accident (02/2019) Anxiety Hyperlipidemia Hypertension Surgical History Surgical History History of cardiac catheterization (2019) History of colonoscopy with polypectomy Family History Family History Mother Carcinoma of colon Father Family history of diabetes mellitus in first degree relative Grandparent Diabetes mellitus Social History Social History Social History: Surrogate medical decision maker: Raina Yun, sibling. Code status: Do not resuscitate. Smoking packs per day: 0.5 Smoking cigarettes per day: 10.0 Years smoked: 40 Smoking pack-years: 20.00 Smoking status: Current every day smoker Alcohol intake: never Substance use: never Substance use type: does not use Do You Feel Safe in your Home?: Yes Lack of Transportation: YES Lack of Food: Never True Current Housing: I Have Housing Concerned About Future Housing: No Difficulty Paying Gas/Electric Bills: No Difficulty Paying for Meds: No Currently Unemployed: No Education: High School Diploma/GED Difficulty w/ Childcare or Family Care: No Living arrangements: with family Additional living arrangements comments: Lives in [place]. Has 4 children. [employer]. Additional occupation/education comments: [employer]. Spiritual care concerns: No Meds Home Medications and Allergies Home Medications ?Medication ?Instructions ?Recorded ?Confirmed ?Type amlodipine 10 mg tablet 10 mg PO DAILY 01/25/22 11/26/24 History atorvastatin 80 mg tablet 80 mg PO DAILY 01/25/22 11/26/24 History carvedilol 25 mg tablet 25 mg PO BID 01/25/22 11/26/24 History clopidogrel 75 mg tablet 75 mg PO DAILY 01/25/22 11/26/24 History hydralazine 50 mg tablet 50 mg PO TID 08/11/23 11/26/24 History Allergies Allergy/AdvReac Type Severity Reaction Status Date / Time tree nut Allergy Intermediate Itching Verified 11/29/24 15:34 Penicillins Allergy Unknown Unknown Verified 11/29/24 15:34 Vital Signs Vital Signs - 24 hr 11/29/24 09:30 11/29/24 09:45 11/29/24 10:00 Temperature Pulse Rate 69 68 72 Respiratory Rate Blood Pressure 146/78 H 161/71 H 163/78 H Pulse Oximetry Oxygen Delivery Oxygen Flow Rate 11/29/24 10:15 11/29/24 10:30 11/29/24 10:45 Temperature Pulse Rate 70 64 70 Respiratory Rate Blood Pressure 159/72 H 160/78 H 144/59 H Pulse Oximetry Oxygen Delivery Oxygen Flow Rate 11/29/24 11:00 11/29/24 11:00 11/29/24 11:15 Temperature Pulse Rate 77 77 73 Respiratory Rate Blood Pressure 148/79 H 148/79 H 156/70 H Pulse Oximetry Oxygen Delivery Oxygen Flow Rate 11/29/24 11:30 11/29/24 11:45 11/29/24 12:00 Temperature Pulse Rate 73 70 69 Respiratory Rate Blood Pressure 158/74 H 151/75 H 161/75 H Pulse Oximetry Oxygen Delivery Oxygen Flow Rate 11/29/24 12:08 11/29/24 12:15 11/29/24 15:25 Temperature 36.5 C 36.7 C Pulse Rate 69 74 77 Respiratory Rate 18 14 Blood Pressure 168/89 H 159/78 H 158/73 H Pulse Oximetry 96 Oxygen Delivery Room Air Oxygen Flow Rate 11/29/24 16:27 11/29/24 16:40 11/29/24 16:55 Temperature Pulse Rate 61 65 74 Respiratory Rate 20 20 20 Blood Pressure 113/61 149/77 H Pulse Oximetry 100 96 97 Oxygen Delivery Simple Face Mask Room Air Room Air Oxygen Flow Rate 8 11/29/24 17:10 11/29/24 18:04 11/29/24 18:27 Temperature 36.4 C L 36.5 C Pulse Rate 66 68 66 Respiratory Rate 20 18 18 Blood Pressure 148/68 H 146/71 H 146/68 H Pulse Oximetry 96 95 96 Oxygen Delivery Room Air Oxygen Flow Rate 11/29/24 19:02 11/29/24 20:00 11/29/24 20:00 Temperature 36.6 C Pulse Rate 69 70 Respiratory Rate 18 Blood Pressure 153/67 H Pulse Oximetry 97 Oxygen Delivery Room Air Oxygen Flow Rate 11/29/24 20:29 11/29/24 22:25 11/30/24 00:00 Temperature 36.5 C Pulse Rate 88 69 66 Respiratory Rate 18 Blood Pressure 161/60 H Pulse Oximetry 97 Oxygen Delivery Oxygen Flow Rate 11/30/24 02:25 11/30/24 04:00 11/30/24 06:00 Temperature 36.4 C 36.3 C L Pulse Rate 66 65 63 Respiratory Rate 16 18 Blood Pressure 190/88 H 138/61 Pulse Oximetry 94 96 Oxygen Delivery Oxygen Flow Rate 11/30/24 08:29 Temperature Pulse Rate 65 Respiratory Rate Blood Pressure Pulse Oximetry Oxygen Delivery Oxygen Flow Rate Exam Const: Other: Chronically ill appearing male Resp: Effort & Inspection: normal respiratory effort Cardio: Rate: regular rate Rhythm: regular rhythm Heart sounds: Murmur heart sound present Neuro: Speech: normal speech Psych: Mental Status: mental status grossly normal Affect: normal affect Results Labs and Meds 11/30/24 05:40 11/30/24 05:40 Lab results: CBC 11/30/24 Range/Units 05:40 WBC 14.3 H (4.5-10.0) K/mm3 RBC 2.84 L (4.6-6.20) M/mm3 Hgb 8.4 L (14.0-18.0) g/dL Hct 26.2 L (42.0-52.0) % Plt Count 199 (150-375) k/mm3 Lymph # (Auto) 1.13 (0.9-3.2) K/mm3 [place] # (Auto) 1.4 H (0.1-0.6) K/mm3 Eos # (Auto) 0.3 (0-0.3) K/mm3 Baso # (Auto) 0.0 (0.0-0.1) K/mm3 Comprehensive Metabolic Panel 11/30/24 Range/Units 05:40 Creatinine 4.98 H (0.7-1.3) mg/dL Intake and Output 11/29/24 11/30/24 11/30/24 23:59 07:59 15:59 Intake Total 276 400 Balance 276 400 Intake: IV 36 Sodium Chloride 0.9% IV 500 ml 36 @ 30 mls/hr IV CONT .[id number] [facility] Rx#:[id number] Oral 240 400 Other: Est. Blood Loss Amount -5 # Unmeasured Voids 1 # Incontinent Voids 1 Patient Weight 11/30/24 23:59 Weight 84.6 kg
--- NOTE | 2024-11-30 11:20 | P.PNNP_ITS ---
Progress Note: A&P Assessment and Plan (1) End stage renal disease: Code(s): N18.6 - End stage renal disease Status: Chronic Assessment and Plan: * HD tomorrow * continue Fri/Fri/Friday dialysis schedule while hospitalized * follow electrolyses, volume status, and clearance * kidney disease due to biopsy proven diabetes and hypertension along with vascular disease (CVA + hyperlipemia) (2) Gangrene of toe of left foot: Code(s): I96 - Gangrene, not elsewhere classified Status: Acute Assessment and Plan: * as noted by clinical exam * Surgery recommendations noted * s/p open transmetatarsal amputation left 2nd toe (11/29) * on IV antibiotics (3) Cellulitis of left foot: Code(s): L03.116 - Cellulitis of left lower limb Status: Acute Assessment and Plan: * as noted on presentation * likely a complication of diabetes and #2 * on antibiotics (4) Bacteremia: Code(s): R78.81 - Bacteremia Status: Acute Assessment and Plan: * as noted: * blood cultures (11/26): MRSA * blood cultures (11/28): pending * presumably related to #2 and #3 * on antibiotics * follow culture data (5) Altered mental status: Code(s): R41.82 - Altered mental status, unspecified Status: Acute Assessment and Plan: * as noted this AM * further imaging (CT of had, CXR) and blood work ordered * due to infection/bacteremia(?) versus anesthesia? (from 11/29 surgery) * ABG ordered as well * continue to follow/monitor (6) Anemia: Code(s): D64.9 - Anemia, unspecified Status: Chronic Assessment and Plan: * due to ESRD with worsening due to acute illness/infection * follow trend of H/H * Epogen with HD (7) Heart failure with preserved ejection fraction: Qualifiers: Heart failure chronicity: unspecified Qualified Code(s): I50.30 - Unspecified diastolic (congestive) heart failure Code(s): I50.30 - Unspecified diastolic (congestive) heart failure Status: Chronic Assessment and Plan: * appears compensated * fluid removal with dialysis to maintain euvolemia * contineu supportive therapy (8) Hypertension: Qualifiers: Hypertension type: unspecified Qualified Code(s): I10 - Essential (primary) hypertension Code(s): I10 - Essential (primary) hypertension Status: Chronic Assessment and Plan: * reasonable control at this time * known history of poor control at baseline * follow trend of hemodynamics (9) Diabetes: Qualifiers: Chronic kidney disease stage: on chronic dialysis Diabetes mellitus complication detail: with chronic kidney disease Diabetes mellitus complication status: with kidney complications Diabetes mellitus jail insulin use: w ithout jail use Diabetes mellitus type: type 2 Qualified Code(s): E11.22 - Type 2 diabetes mellitus with diabetic chronic kidney disease; N18.6 - End stage renal disease; Z99.2 - Dependence on renal dialysis Code(s): E11.9 - Type 2 diabetes mellitus without complications Status: Chronic Assessment and Plan: * follow accu-cheks * glycemic control per hospitalists Will continue to follow. L Subjective Date/time seen: 11/30/24 11:20 Interval history: Follow-up for end stage renal disease on hemodialysis. Tolerated dialysis treatment as well as left second toe amputation yesterday (open transmetatarsal amputation left 2nd toe); noted to be lethargic but awakes with stimulation when seen with garbled speech -- noted further testing ordered (CT of head, CXR, labs...etc) to assess this change in status; no apparent distress noted otherwise. Exam 2 Narrative: General: WD/WN male in NAD Heart: normal S1 and S2; no rub Lungs: clear anteriorly Abdomen: soft, nontender, nondistended, positive bowel sounds Extremities: no cyanosis or clubbing; + edema left foot Skin: left foot dressings in place Objective Data Vital Signs Vital Signs: Vital Signs Temp Pulse Resp BP Pulse Ox O2 Del Method 11/30/24 11:06 98.1 F 62 18 118/57 L 92 11/30/24 08:30 Room Air 11/30/24 08:29 65 11/30/24 08:00 65 11/30/24 06:00 97.3 F L 63 18 138/61 96 11/30/24 04:00 65 11/30/24 02:25 97.6 F 66 16 190/88 H 94 11/30/24 00:00 66 11/29/24 22:25 97.7 F 69 18 161/60 H 97 11/29/24 20:29 88 11/29/24 20:00 70 11/29/24 20:00 Room Air Intake/Output Intake/Output: Intake & Output 11/27/24 11/28/24 11/29/24 11/30/24 23:59 23:59 23:59 23:59 Intake Total 3578 9774 869 5333 Output Total 1999 2600 Balance 1578 1780 -2224 1300 Meds/Results Medications: Active Medications Generic Name Dose Route Start Last Admin Trade Name Freq PRN Reason Stop Dose Admin Amlodipine Besylate 10 mg 11/27/24 09:00 11/30/24 08:30 Amlodipine Besylate 10 Mg Tablet PO 10 mg DAILY LILIAN Administration Atorvastatin Calcium 80 mg 11/27/24 09:00 11/30/24 08:30 Atorvastatin 40 Mg Tablet PO 80 mg DAILY LILIAN Administration Carvedilol 25 mg 11/26/24 21:00 11/30/24 08:29 Carvedilol 25 Mg Tablet PO 25 mg Q12HR LILIAN Administration Clopidogrel Bisulfate 75 mg 11/27/24 09:00 Clopidogrel Bisulfate 75 Mg Tablet PO DAILY LILIAN Dextrose 12.5 gm 11/30/24 16:34 Dextrose 50% 25 Gm/50 Ml Syringe IV PUSH PRN PRN Hypoglycemia Protocol Docusate Sodium 100 mg 11/26/24 17:00 11/30/24 17:21 Docusate Sodium 100 Mg Capsule PO Not Given BID LILIAN Glucagon 1 mg 11/30/24 16:34 Glucagon For Inj 1 Mg Vial IM PRN PRN Hypoglycemia Protocol Glucose 15 gm 11/30/24 16:34 Glucose Oral Gel 15 Gm Of Glucse In 37.5 Gm Tube PO PRN PRN Hypoglycemia Protocol Hydralazine HCl 50 mg 11/26/24 17:00 11/30/24 12:49 Hydralazine Hcl 50 Mg Tablet PO Not Given TID LILIAN Hydralazine HCl 10 mg 11/30/24 17:13 Hydralazine Hcl 20 Mg/Ml Vial IV PUSH Q8H PRN SBP>180 Albumin Human 50 mls @ 999 mls/hr 11/27/24 06:51 Albutein IVPB 12/27/24 06:50 Q10M PRN HYPOTENSION Ibuprofen 800 mg in 200 mls @ 400 mls/hr 11/29/24 17:35 Caldolor 800 Mg/200 Ml IVPB Q6H PRN Breakthrough Pain Rated 1-3 or NPO Cefepime HCl 1 gm in 50 mls @ 100 mls/hr 11/30/24 18:00 11/30/24 17:50 Maxipime 1 Gm/Ns 50 Ml IVPB 100 mls/hr DAILY@1800 LILIAN Administration Metronidazole 500 mg in 100 mls @ 100 mls/hr 11/30/24 14:00 11/30/24 15:45 Flagyl 500 Mg/Iso Soln 100 Ml IVPB 100 mls/hr Q8H LILIAN Administration Dextrose/Sodium Chloride 1,000 mls @ 80 mls/hr 11/30/24 16:35 11/30/24 17:50 Dextrose 5% Sodium Chloride 0.9% IV CONT 80 mls/hr .[id number] LILIAN Administration Dextrose 1,000 mls @ 100 mls/hr 11/30/24 16:34 Dextrose 5% 1,000 Ml IVPB PRN PRN Hypoglycemia Protocol Insulin Aspart 2 - 5 units 11/27/24 08:00 11/30/24 17:51 Insulin Aspart (*Bkc) 100 Units/Ml SUB-Q Not Given TIDWM [facility] Protocol Mupirocin 1 applic 11/28/24 09:00 11/30/24 08:37 Mupirocin 2% Oint 22 Gm Tube EACH NARE 12/02/24 21:01 1 applic Q12HR LILIAN Administration Naloxone HCl 0.1 mg 11/29/24 17:35 Naloxone Hcl 0.4 Mg/Ml Vial IV PUSH Q2M PRN Opiate Reversal Ondansetron HCl 4 mg 11/26/24 14:10 Ondansetron Inj 4 Mg/2 Ml Vial IV PUSH Q4H PRN Nausea Oxycodone/Acetaminophen 0.5 tablet 11/29/24 17:35 Oxycodone/Acetaminophen (*Crx) 5-325 Mg Tablet PO Q4H PRN Pain Rated 4-6 Polyethylene Glycol 17 gm 11/30/24 09:00 11/30/24 08:29 Polyethylene Glycol 3350 17 Gm Powd.Pack PO 17 gm QAM LILIAN Administration Senna/Docusate Sodium 2 tab 11/29/24 21:00 11/29/24 20:29 Senna/Docusate Sodium Tablet PO 2 tab HS LILIAN Administration Vancomycin HCl 1 each 11/26/24 13:16 Vancomycin For Hemodialysis IVPB PRN PRN Vancomycin Protocol Radiology Results: ITS Impressions Foot X-Ray 11/26/24 12:58 Impression: 1: Moderate soft tissue swelling of the second digit. The distal phalanx not well visualized. Cannot exclude osteomyelitis. 2: Extra-articular fracture left fifth proximal phalanx. Duplex Scan Lower Extremity Artery 11/26/24 13:53 IMPRESSION: 1. No evident hemodynamically significant stenosis either by follow-up elevation of peak systolic velocities or by direct visualization grayscale imaging with brisk systolic upstrokes arteries of the bilateral lower limbs. Labs Labs: Laboratory Tests 11/30/24 05:40 Microbiology 11/29/24 16:06 Foot Left Anaerobic Culture - Preliminary 11/26/24 13:39 Foot - Unspecified Anaerobic Culture - Preliminary 11/26/24 13:39 Foot - Unspecified Aerobic Culture - Final Methicillin Resis Staph Aureus 11/28/24 11:17 Blood Blood Culture - Preliminary Gram positive cocci cluster is 11/28/24 11:10 Blood Blood Culture - Preliminary Gram positive cocci cluster is
[2024-11-30 11:57] LABS: Glucose Point of Care 153 mg/dl (65-105)
[2024-11-30 12:10] LABS: Alveolar/Arterial O2 Gradient 53.7 mmHg; Base Excess ABG 6.9 mEq/l (+/-2.0); Fractional Inspired Oxygen 21 %; HCO3 ABG 29.8 mEq/l (22.0-26.0); Oxygen Content ABG 11.8 %vol (16.0-22.0); Oxygen Saturation ABG 91.3 % (95.0-100.0); Oxyhemoglobin 89.2 % THb (90.0-100.0); PCO2 ABG 35.8 mmHg (35.0-45.0); PO2 ABG 53.2 mmHg (80.0-100.0); PO2 FiO2 Ratio Arterial Blood 2.53 %; Total Hemoglobin 9.4 g/dL (12.0-18.0)
[2024-11-30 12:16] LABS: Device ROOM AIR; Site Drawn RIGHT RADIAL; pH ABG 7.538 (7.350-7.450)
[2024-11-30 12:25] LABS: Lactic Acid Reflex 0.8 mmol/L (0.7-2.0)
[2024-11-30 12:30] LABS: Alanine Aminotransferase 70 U/L (6-50); Albumin Level 2.8 g/dL (3.5-5.1); Alkaline Phosphatase 143 U/L (38-126); Anion Gap 9 mmol/L (4-12); Aspartate Amino Transferase 29 U/L (17-59); Bilirubin,Total 0.8 mg/dL (0.2-1.3); Blood Urea Nitrogen 47 mg/dL (9-20); Calcium 7.8 mg/dL (8.4-10.2); Carbon Dioxide 27 mmol/L (22-30); Chloride 98 mmol/L (98-107); Estimated CRCL calculation 15 ml/min; Estimated Glomerular Filt Rate 11; Glucose 159 mg/dL (65-110); Sodium 134 mmol/L (137-145); Total Protein 6.2 g/dL (6.3-8.2)
[2024-11-30 12:54] LABS: Procalcitonin. 6.1 ng/mL
--- NOTE | 2024-11-30 13:20 | PCSTNOTE ---
Please refer to the Modified Barium Swallow Evaluation in the EMR. The above pt was seen for a modified barium swallow due to overt s/s of aspiration exhibited during the bedside swallow evaluation. ?The x-ray transporter also stated that upon entering the pts room for transport to x-ray, the pt was just setting down his water and began coughing and choking. PMH includes ESRD on HD, diabetes mellitus, history of stroke, hypertension, hyperlipidemia, carotid artery disease, CHF who was admitted with gangrenous toe, diabetes infection of foot, and MRSA bacteremia. Underwent open transmetatarsal amputation of left second toe on 11/29. The pt was seated for a lateral view and was presented with 5 ml thin liquid via a spoon, pudding consistency barium via a spoon, 5 ml mildly thick liquids via a spoon, and uncontrolled trials of mildly thick liquids via a cup and straw sip. During the oral stage, intermittent long abnormal oral hold was noted.? The length of the oral hold varied, was inconsistent, but at times was up to a minute long.? Pt did not respond to verbal cues. Intermittent diffuse spill (posteriorly) also occurred with liquid trials.? During the pharyngeal stage the following occurred: reduced tongue base as evidenced by vallecular residue which was inconsistent and when it occurred was mild; reduced laryngeal elevation as evidenced by laryngeal penetration during the swallow (intermittent) and (mild) pyriform titi residue; reduced epiglottic inversion was also exhibited and a moderate degree of coating on the backside of the epiglottis after the pudding and thick liquid trials. Trace aspiration occurred with all consistencies but not with every trial. It is noteworthy that there were swallows during testing that were WFL. Impression & recommendations: severe dysphagia; NPO; begin nonoral feeding; begin swallow therapy & retest in 3-4 days
[2024-11-30] MEDS: metroNIDAZOLE 500 MG/ISO 100ML 500 MG/100 ML BAG 100 MG IVPB ×2 (15:45→22:30)
[2024-11-30 17:11] LABS: Glucose Point of Care 124 mg/dl (65-105)
[2024-11-30] MEDS: CEFEPIME 1 GM/NS 50 ML 1 GM/50 ML BAG IVPB (17:50)
[2024-11-30] MEDS: DEXTROSE 5%/0.9% SOD CHL 1,000 ML 80 ML IV CONT (17:50)
--- NOTE | 2024-11-30 17:54 | WPDANESPN ---
Anes - Prog Note Post-Op Date/Time: 11/30/24 17:54 Cardiovascular status: normal Respiratory status: normal Airway patency: baseline Mental status: baseline Post-Op hydration status: normal Vital Signs: Last Vital Signs Temp 37.1 C 11/30/24 15:20 Pulse 59 L 11/30/24 16:04 Resp 20 11/30/24 15:20 BP 115/55 L 11/30/24 15:20 Pulse Ox 97 11/30/24 15:20 O2 Del Method Room Air 11/30/24 08:30 O2 Flow Rate 8 11/29/24 16:27 Pain Score (VAS): 0 I/O: Intake & Output 11/30/24 11/30/24 11/30/24 07:59 15:59 23:59 Intake Total 400 900 0 Balance 400 900 0 Laboratory Tests 11/30/24 05:40 11/30/24 12:02 11/29/24 11/30/24 11/30/24 21:53 05:40 08:32 WBC 14.3 H RBC 2.84 L Hgb 8.4 L Hct 26.2 L MCV 92.3 MCH 29.6 MCHC 32.1 RDW 14.6 H Plt Count 199 MPV 10.9 H Immature Gran % (Auto) 2.4 H Neut % (Auto) 77.7 H Lymph % (Auto) 7.9 L Douglas % (Auto) 10.0 H Eos % (Auto) 1.8 Baso % (Auto) 0.2 Lymph # (Auto) 1.13 Douglas # (Auto) 1.4 H Eos # (Auto) 0.3 Baso # (Auto) 0.0 Abs Immat Gran (auto) 0.34 H Absolute Neuts (auto) 11.2 H Absolute Nucleated RBC 0.030 H Nucleated RBC % 0.2 Puncture Site ABG pH ABG pCO2 ABG pO2 ABG PO2/FiO2 Ratio ABG HCO3 ABG O2 Saturation ABG O2 Content ABG Base Excess A-a Gradient Oxyhemoglobin Total Hemoglobin O2 Delivery Device O2 Liters/Min FiO2 Sodium Potassium Chloride Carbon Dioxide Anion Gap BUN Creatinine 4.98 H Estim Creat Clear Calc 16 Estimated GFR 12 L Glucose POC Capillary Glucose 165 H 150 H Lactic Acid Calcium Total Bilirubin AST ALT Alkaline Phosphatase Total Protein Albumin Procalcitonin 11/30/24 11/30/24 11/30/24 11:52 12:02 12:04 WBC RBC Hgb Hct MCV MCH MCHC RDW Plt Count MPV Immature Gran % (Auto) Neut % (Auto) Lymph % (Auto) Douglas % (Auto) Eos % (Auto) Baso % (Auto) Lymph # (Auto) Douglas # (Auto) Eos # (Auto) Baso # (Auto) Abs Immat Gran (auto) Absolute Neuts (auto) Absolute Nucleated RBC Nucleated RBC % Puncture Site Right radial ABG pH 7.538 H* ABG pCO2 35.8 ABG pO2 53.2 L ABG PO2/FiO2 Ratio 2.53 ABG HCO3 29.8 H ABG O2 Saturation 91.3 L ABG O2 Content 11.8 L ABG Base Excess 6.9 A-a Gradient 53.7 Oxyhemoglobin 89.2 L Total Hemoglobin 9.4 L O2 Delivery Device Room air O2 Liters/Min Not Reportable FiO2 21 Sodium 134 L Potassium 4.0 Chloride 98 Carbon Dioxide 27 Anion Gap 9 BUN 47 H D Creatinine 5.45 H Estim Creat Clear Calc 15 Estimated GFR 11 L Glucose 159 H POC Capillary Glucose 153 H Lactic Acid 0.8 Calcium 7.8 L Total Bilirubin 0.8 AST 29 ALT 70 H Alkaline Phosphatase 143 H Total Protein 6.2 L Albumin 2.8 L Procalcitonin 6.1 11/30/24 17:09 WBC RBC Hgb Hct MCV MCH MCHC RDW Plt Count MPV Immature Gran % (Auto) Neut % (Auto) Lymph % (Auto) Douglas % (Auto) Eos % (Auto) Baso % (Auto) Lymph # (Auto) Douglas # (Auto) Eos # (Auto) Baso # (Auto) Abs Immat Gran (auto) Absolute Neuts (auto) Absolute Nucleated RBC Nucleated RBC % Puncture Site ABG pH ABG pCO2 ABG pO2 ABG PO2/FiO2 Ratio ABG HCO3 ABG O2 Saturation ABG O2 Content ABG Base Excess A-a Gradient Oxyhemoglobin Total Hemoglobin O2 Delivery Device O2 Liters/Min FiO2 Sodium Potassium Chloride Carbon Dioxide Anion Gap BUN Creatinine Estim Creat Clear Calc Estimated GFR Glucose POC Capillary Glucose 124 H Lactic Acid Calcium Total Bilirubin AST ALT Alkaline Phosphatase Total Protein Albumin Procalcitonin Microbiology 11/29/24 16:06 Foot Left Anaerobic Culture - Preliminary 11/26/24 13:39 Foot - Unspecified Anaerobic Culture - Preliminary 11/26/24 13:39 Foot - Unspecified Aerobic Culture - Final Methicillin Resis Staph Aureus 11/28/24 11:17 Blood Blood Culture - Preliminary Gram positive cocci cluster is 11/28/24 11:10 Blood Blood Culture - Preliminary Gram positive cocci cluster is Post-procedural complaints: none Patient Feedback: Patient satisfied with anesthetic care.
[2024-11-30] MEDS: IBUPROFEN IV 800 MG/200 ML 800 MG/200 ML BAG 400 MG IVPB (20:49)
[2024-12-01] VITALS (31 sets, daily range): BP systolic 104–156; BP diastolic 61–95; PULSE 50–97; RESP 14–22; TEMP 36.4–37; O2SAT 95–100
[2024-12-01 00:19] LABS: Glucose Point of Care 141 mg/dl (65-105)
[2024-12-01 05:34] LABS: Basophils Percent Auto 0.3 % (0.2-1.2); Eosinophils Absolute Auto 0.4 K/mm3 (0-0.3); Eosinophils Percent Auto 2.8 % (0-4.4); Hematocrit 26.8 % (42.0-52.0); Hemoglobin 8.4 g/dL (14.0-18.0); Immature Granulocyte Absolute 0.22 K/mm3 (0.00-0.031); Immature Granulocyte Percent A 1.5 % (0-0.5); Lymphocytes Absolute Auto 0.84 K/mm3 (0.9-3.2); Lymphocytes Percent Auto 5.7 % (18.3-44.2); Mean Corpuscular HGB Conc 31.3 g/dl (32-36); Mean Corpuscular Hemoglobin 29.3 pg (26-34); Mean Corpuscular Volume 93.4 fl (80-100); Mean Platelet Volume 11.3 fl (7.4-10.4); Neutrophils Absolute Auto 12.2 K/mm3 (1.3-6.7); Neutrophils Percent Auto 82.7 % (45.5-73.1); Platelet Count Result 214 k/mm3 (150-375); Red Blood Count 2.87 M/mm3 (4.6-6.20); Red Cell Distribution Width 14.6 % (11.5-14.5); White Blood Count 14.8 K/mm3 (4.5-10.0)
[2024-12-01] MEDS: metroNIDAZOLE 500 MG/ISO 100ML 500 MG/100 ML BAG 100 MG IVPB ×3 (05:38→21:05)
[2024-12-01 05:49] LABS: Alanine Aminotransferase 56 U/L (6-50); Albumin Level 2.6 g/dL (3.5-5.1); Alkaline Phosphatase 123 U/L (38-126); Anion Gap 9 mmol/L (4-12); Aspartate Amino Transferase 27 U/L (17-59); Bilirubin,Total 0.7 mg/dL (0.2-1.3); Blood Urea Nitrogen 53 mg/dL (9-20); Calcium 7.4 mg/dL (8.4-10.2); Carbon Dioxide 28 mmol/L (22-30); Chloride 100 mmol/L (98-107); Estimated CRCL calculation 12 ml/min; Estimated Glomerular Filt Rate 9; Glucose 146 mg/dL (65-110); Potassium 3.8 mmol/L (3.4-5.0); Sodium 137 mmol/L (137-145); Total Protein 5.9 g/dL (6.3-8.2)
[2024-12-01 06:08] LABS: Glucose Point of Care 142 mg/dl (65-105)
[2024-12-01] MEDS: MUPIROCIN 2% OINT 22 GM TUBE 1 APPLIC EACH NARE ×2 (08:18→21:06)
--- NOTE | 2024-12-01 09:48 | PM.IMPN ---
Progress Note: A&P Assessment and Plan (1) Encephalopathy: Code(s): G93.40 - Encephalopathy, unspecified Status: Acute Assessment and Plan: Severely lethargic with a right side lean and associated right gaze. His voice was increasingly garbled and his responses were slow. Remained AOx3 with otherwise benign neuro exam. Likely metabolic vs drug induced (received morphine overnight) encephalopathy - Morphine discontinued - ABG: pH 7.538, pCO2 35.8, pO2 53.2, HCO3 29.8. Started on 2L NC for hypoxemia. - MRSA positive. Bactroban nares ordered. - Lactic WNL. Procal elevated at 6.1. Glucose WNL. - Head CT: Unchanged small old infarcts in the right frontal lobe, abdelrahman, right lentiform nucleus and left thalamus. No acute intracranial process. Age-related changes including mild diffuse volume loss and moderate scattered white matter hypoattenuation consistent with chronic small vessel ischemic disease. - CXR: Opacities in the right mid and lower lung zones which could represent atelectasis, aspiration and/or pneumonia. Small right pleural effusion. - Antibiotics: Cefepime, Flagyl and vancomycin - Monitor CBC, CMP, magnesium, troponin, and lipid profile - Monitor blood pressure, allow for permissive hypertension. - Telemetry monitoring - Monitor blood glucose (2) Bacteremia: Code(s): R78.81 - Bacteremia Status: Acute Assessment and Plan: Blood cultures obtained 11/26: staph aureus, sensitivities pending Patient remains on vancomycin Echo ordered to rule out endocarditis LVEF 60-65% with abnormal diastolic function and an abnormal appearing aortic valve that is heavily calcified and has at least moderate stenosis. Repeat blood cultures on 11/28 growing gram + cocci Cardiology consulted for potential KATLIN given continued bacteremia Repeat blood cultures on 12/01 to reassess bacteremia (two days following source control). If cultures remain positive despite source control and KATLIN being negative consider other source, such as fistula. Patient has no other lines. KATLIN completed today with Dr Michelle: KATLIN negative for infective endocarditis. -KATLIN shows severe aortic stenosis with ALBINO of 0.9cm2. Will arrange outpatient follow up for his valvular disease. Avoid hypotension (3) Aspiration pneumonia: Code(s): J69.0 - Pneumonitis due to inhalation of food and vomit Status: Acute Assessment and Plan: Per patient son, the patient has been coughing with meals for a few months. CXR: Opacities in the right mid and lower lung zones which could represent atelectasis, aspiration and/or pneumonia. Small right pleural effusion. - antibiotics: cefepime, Flagyl and vancomycin - Viral PCR: negative for Flu/COVID/RSV - MRSA positive. Bactroban nares ordered. - ABG: pH 7.538, pCO2 35.8, pO2 53.2, HCO3 29.8. Started on 2L NC for hypoxemia. - Patient failed MBS. Last meal 11/29. Remains NPO on D5NS. Speech therapy following. Discussed with him that ST is following and if able we will reattempt a swallow study in the future. If patient continues to fail and has to remain NPO we would then need to discuss alternative forms of nutrition and potential PEG placement vs hospice. - Monitor vital signs, I&Os, neuro status and patient is a fall risk - Follow WBC, serum electrolytes, temperature curves and cultures (4) Diabetic infection of left foot: Code(s): E11.628 - Type 2 diabetes mellitus with other skin complications; L08.9 - Local infection of the skin and subcutaneous tissue, unspecified Status: Acute Assessment and Plan: Erythema and edema to the dorsal aspect of the left foot extending to the ankle. Unable to palpate DP pulses. Black foul smelling 2nd toe of the left foot. - Antibiotics: vancomycin (pharmacy to dose) and cefepime 2g following dialysis, started on Flagyl given possible anaerobic concern. Cefepime and flagyl transitioned to rocephin on 11/29 after discussing with ID pharmacy. - Foot XR left showed moderate soft tissue swelling of the second digit with poor visualization fo the distal phalanx. Osteomyelitis cannot be rule out. Also extra articular fracture to the left fifth proximal phalanx noted. - Duplex showed No evident hemodynamically significant stenosis either by follow-up elevation of peak systolic velocities or by direct visualization grayscale imaging with brisk systolic upstrokes arteries of the bilateral lower limbs. - Monitor vital signs, I&Os, neuro status and patient is a fall risk - Monitor serum electrolytes, CBC, cultures, WBC and temp curve - Surgery consulted Agree with broad spectrum antibiotics s/p open transmetatarsal amputation left 2nd toe on 11/[address] Goodson Antibiotics transitioned back to cefepime and flagyl on 11/30 given aspiration pneumonia and worsening exam. (5) Gangrenous toe: Code(s): I96 - Gangrene, not elsewhere classified Status: Acute Assessment and Plan: See plan above #1 diabetic infection of left foot Surgery consulted Agree with broad spectrum antibiotics s/p open transmetatarsal amputation left 2nd toe on 11/[address] Goodson (6) Aortic stenosis: Code(s): I35.0 - Nonrheumatic aortic (valve) stenosis Status: Acute Assessment and Plan: Echo ordered to rule out endocarditis LVEF 60-65% with abnormal diastolic function and an abnormal appearing aortic valve that is heavily calcified and has at least moderate stenosis. Recommend cardiology follow up outpatient. Checked tele monitor and patient had intermittent PVCs, remains asymptomatic and stable. Mag and K WNL. Carvedilol 25 mg BID placed on hold. Discussed with cardiology Dr. Michelle and will monitor. (7) Type 2 diabetes mellitus: Code(s): E11.9 - Type 2 diabetes mellitus without complications Status: Acute Assessment and Plan: - hypoglycemia protocol - POC blood glucose ACHS - home medication - none - correct regimen ordered - low dose TIDWM and HS - A1C 5.9 (8) Anemia: Code(s): D64.9 - Anemia, unspecified Status: Chronic Assessment and Plan: Chronic, likely secondary to ESRD H/H 11.5/35.7 on admission, 8.4/26.2 on am labs Given epoetin 10,000 units x1 on 11/27 No signs of active bleeding (9) Carotid artery disease: Qualifiers: Carotid artery disease type: stenosis Laterality: unspecified laterality Qualified Code(s): I65.29 - Occlusion and stenosis of unspecified carotid artery Code(s): I77.9 - Disorder of arteries and arterioles, unspecified Status: Chronic Assessment and Plan: Chronic, currently holding plavix for plan of toe amputation with surgery (10) Hypertension: Qualifiers: Hypertension type: unspecified Qualified Code(s): I10 - Essential (primary) hypertension Code(s): I10 - Essential (primary) hypertension Status: Chronic Assessment and Plan: Chronic, continue home medications - amlodipine 10 mg daily, coreg 25 mg BID, hydralazine 50 mg TID placed on hold due to patient NPO - hydralazine 10 mg IV PRN - blood pressures stable, continue to monitor Discussed patients antihypertensives with Dr. Michelle. Patient transitioned to IV hydralazine PRN. (11) End stage renal disease on dialysis: Code(s): N18.6 - End stage renal disease; Z99.2 - Dependence on renal dialysis Status: Acute Assessment and Plan: ESRD on dialysis [facility] Nephrology consulted (12) Heart failure with preserved ejection fraction: Qualifiers: Heart failure chronicity: unspecified Qualified Code(s): I50.30 - Unspecified diastolic (congestive) heart failure Code(s): I50.30 - Unspecified diastolic (congestive) heart failure Status: Chronic Assessment and Plan: Chronic, does not appear in acute exacerbation Echo 07/2023 showed LVEF 40-45% with grade 2 diastolic dysfunction Echo ordered to rule out endocarditis LVEF 60-65% with abnormal diastolic function and an abnormal appearing aortic valve that is heavily calcified and has at least moderate stenosis. 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 He underwent open transmetatarsal amputation of left second toe on 11/[address] Goodson. Has had persistent bacteremia, cardiology was consulted and KATLIN requested to rule out infective endocarditis. He was lethargic yesterday but more alert today. Review of Systems Review of Systems: 12 systems were reviewed and are negative except for as per HPI. All systems reviewed & are unremarkable except as noted in HPI and below Exam Narrative: General: male in no acute respiratory distress who is nontoxic appearing, lying in bed HEENT: Normocephalic. Atraumatic. Extraocular movement intact. Sclera clear and anicteric. No facial asymmetry. Chest: Lungs are coarse with crackles to auscultation bilaterally. CV: Heart was regular rate and rhythm. S1/S2. No murmurs, gallops, or rubs. Abd: Abdomen was soft. Nontender. Nondistended. Positive bowel sounds. Ext: Erythema and edema to the dorsal aspect of the left foot extending to the ankle, improved since yesterday. Unable to palpate DP pulses. Black foul smelling 2nd toe of the left foot. Neuro: Patient remains AOx3 on assessment however he was noted to be severely lethargic with a right side lean and associated right gaze. His voice was increasingly garbled and his responses were slow. Objective Data Vital Signs Vital Signs: Vital Signs - 24 hr 11/30/24 11:56 11/30/24 12:05 11/30/24 15:20 Temperature 98.1 F 98.8 F Pulse Rate 62 62 59 L Respiratory Rate 18 20 Blood Pressure 118/57 L 115/55 L Pulse Oximetry 92 97 Oxygen Delivery 11/30/24 16:04 11/30/24 19:20 11/30/24 20:00 Temperature 98.6 F Pulse Rate 59 L 62 Respiratory Rate 18 Blood Pressure 130/58 L Pulse Oximetry 97 Oxygen Delivery Room Air 11/30/24 20:00 12/01/24 00:00 12/01/24 04:00 Temperature Pulse Rate 63 63 52 L Respiratory Rate Blood Pressure Pulse Oximetry Oxygen Delivery 12/01/24 07:36 12/01/24 08:00 12/01/24 08:10 Temperature 97.7 F Pulse Rate 97 53 L Respiratory Rate 18 Blood Pressure 142/74 H Pulse Oximetry 98 Oxygen Delivery Room Air 12/01/24 08:27 12/01/24 08:40 12/01/24 08:45 Temperature 97.5 F L Pulse Rate 54 L 52 L 53 L Respiratory Rate 16 Blood Pressure 140/66 144/66 H 143/66 H Pulse Oximetry Oxygen Delivery 12/01/24 09:00 12/01/24 09:15 Temperature Pulse Rate 57 L 53 L Respiratory Rate Blood Pressure 134/67 139/95 H Pulse Oximetry Oxygen Delivery Intake/Output Intake/Output: Intake & Output 11/28/24 11/29/24 11/30/24 12/01/24 23:59 23:59 23:59 23:59 Intake Total 9635 693 5158 100 Output Total 2600 0 Balance 1780 -2224 1700 100 Meds/Results Medications: Active Medications Generic Name Dose Route Start Last Admin Trade Name Freq PRN Reason Stop Dose Admin Amlodipine Besylate 10 mg 11/27/24 09:00 11/30/24 08:30 Amlodipine Besylate 10 Mg Tablet PO 10 mg DAILY LILIAN Administration Atorvastatin Calcium 80 mg 11/27/24 09:00 11/30/24 08:30 Atorvastatin 40 Mg Tablet PO 80 mg DAILY LILIAN Administration Carvedilol 25 mg 11/26/24 21:00 11/30/24 08:29 Carvedilol 25 Mg Tablet PO 25 mg Q12HR LLIIAN Administration Clopidogrel Bisulfate 75 mg 11/27/24 09:00 Clopidogrel Bisulfate 75 Mg Tablet PO DAILY [facility] Dextrose 12.5 gm 11/30/24 16:34 Dextrose 50% 25 Gm/50 Ml Syringe IV PUSH PRN PRN Hypoglycemia Protocol Docusate Sodium 100 mg 11/26/24 17:00 11/30/24 17:21 Docusate Sodium 100 Mg Capsule PO Not Given BID [facility] Epoetin Romain-epbx 10,000 units 12/01/24 18:36 Epoetin Romain-Epbx 10,000 Units/Ml Vial IV PUSH 12/01/24 18:37 ONCE ONE Glucagon 1 mg 11/30/24 16:34 Glucagon For Inj 1 Mg Vial IM PRN PRN Hypoglycemia Protocol Glucose 15 gm 11/30/24 16:34 Glucose Oral Gel 15 Gm Of Glucse In 37.5 Gm Tube PO PRN PRN Hypoglycemia Protocol Hydralazine HCl 50 mg 11/26/24 17:00 11/30/24 12:49 Hydralazine Hcl 50 Mg Tablet PO Not Given TID [facility] Hydralazine HCl 10 mg 11/30/24 17:13 Hydralazine Hcl 20 Mg/Ml Vial IV PUSH Q8H PRN SBP>180 Albumin Human 50 mls @ 999 mls/hr 11/27/24 06:51 Albutein IVPB 12/27/24 06:50 Q10M PRN HYPOTENSION Ibuprofen 800 mg in 200 mls @ 400 mls/hr 11/29/24 17:35 11/30/24 21:19 Caldolor 800 Mg/200 Ml IVPB Infused Q6H PRN Infusion Breakthrough Pain Rated 1-3 or NPO Cefepime HCl 1 gm in 50 mls @ 100 mls/hr 11/30/24 18:00 11/30/24 17:50 Maxipime 1 Gm/Ns 50 Ml IVPB 100 mls/hr DAILY@1800 LILIAN Administration Metronidazole 500 mg in 100 mls @ 100 mls/hr 11/30/24 14:00 12/01/24 06:38 Flagyl 500 Mg/Iso Soln 100 Ml IVPB Infused Q8H LILIAN Infusion Dextrose/Sodium Chloride 1,000 mls @ 80 mls/hr 11/30/24 16:35 11/30/24 17:50 Dextrose 5% Sodium Chloride 0.9% IV CONT 80 mls/hr .[id number] LILIAN Administration Dextrose 1,000 mls @ 100 mls/hr 11/30/24 16:34 Dextrose 5% 1,000 Ml IVPB PRN PRN Hypoglycemia Protocol Vancomycin HCl 750 mg in 250 mls @ 250 mls/hr 12/01/24 18:00 Vancomycin 750 Mg/Ns 250 Ml IVPB 12/01/24 18:59 ONCE ONE Insulin Aspart 2 - 5 units 12/01/24 00:00 12/01/24 06:08 Insulin Aspart (*Bkc) 100 Units/Ml SUB-Q Not Given Q6HR [facility] Protocol Mupirocin 1 applic 11/28/24 09:00 12/01/24 08:18 Mupirocin 2% Oint 22 Gm Tube EACH NARE 12/02/24 21:01 1 applic Q12HR LILIAN Administration Naloxone HCl 0.1 mg 11/29/24 17:35 Naloxone Hcl 0.4 Mg/Ml Vial IV PUSH Q2M PRN Opiate Reversal Ondansetron HCl 4 mg 11/26/24 14:10 Ondansetron Inj 4 Mg/2 Ml Vial IV PUSH Q4H PRN Nausea Oxycodone/Acetaminophen 0.5 tablet 11/29/24 17:35 Oxycodone/Acetaminophen (*Crx) 5-325 Mg Tablet PO Q4H PRN Pain Rated 4-6 Polyethylene Glycol 17 gm 11/30/24 09:00 11/30/24 08:29 Polyethylene Glycol 3350 17 Gm Powd.Pack PO 17 gm QAM LILIAN Administration Senna/Docusate Sodium 2 tab 11/29/24 21:00 11/29/24 20:29 Senna/Docusate Sodium Tablet PO 2 tab HS LILIAN Administration Vancomycin HCl 1 each 11/26/24 13:16 Vancomycin For Hemodialysis IVPB PRN PRN Vancomycin Protocol Radiology Results: ITS Impressions Foot X-Ray 11/26/24 12:58 Impression: 1: Moderate soft tissue swelling of the second digit. The distal phalanx not well visualized. Cannot exclude osteomyelitis. 2: Extra-articular fracture left fifth proximal phalanx. Duplex Scan Lower Extremity Artery 11/26/24 13:53 IMPRESSION: 1. No evident hemodynamically significant stenosis either by follow-up elevation of peak systolic velocities or by direct visualization grayscale imaging with brisk systolic upstrokes arteries of the bilateral lower limbs. Head CT 11/30/24 12:22 IMPRESSION: 1. . 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 No acute intracranial process. 2. Age-related changes including mild diffuse volume loss and moderate scattered white matter hypoattenuation consistent with chronic small vessel ischemic disease. Chest X-Ray 11/30/24 12:37 IMPRESSION: 1. Opacities in the right mid and lower lung zones which could represent atelectasis, aspiration and/or pneumonia. 2. Small right pleural effusion. Modified Barium Swallow 11/30/24 13:31 IMPRESSION: Oropharyngeal dysphagia with laryngeal penetration and aspiration. Please correlate with speech pathologist findings and specific feeding recommendations. Labs Labs: Laboratory Results - last 24 hr 11/30/24 11/30/24 11/30/24 11:52 12:02 12:04 WBC RBC Hgb Hct MCV MCH MCHC RDW Plt Count MPV Immature Gran % (Auto) Neut % (Auto) Lymph % (Auto) [facility] % (Auto) Eos % (Auto) Baso % (Auto) Lymph # (Auto) [facility] # (Auto) Eos # (Auto) Baso # (Auto) Abs Immat Gran (auto) Absolute Neuts (auto) Absolute Nucleated RBC Nucleated RBC % Puncture Site Right radial ABG pH 7.538 H* ABG pCO2 35.8 ABG pO2 53.2 L ABG PO2/FiO2 Ratio 2.53 ABG HCO3 29.8 H ABG O2 Saturation 91.3 L ABG O2 Content 11.8 L ABG Base Excess 6.9 A-a Gradient 53.7 Oxyhemoglobin 89.2 L Total Hemoglobin 9.4 L O2 Delivery Device Room air O2 Liters/Min Not Reportable FiO2 21 Sodium 134 L Potassium 4.0 Chloride 98 Carbon Dioxide 27 Anion Gap 9 BUN 47 H D Creatinine 5.45 H Estim Creat Clear Calc 15 Estimated GFR 11 L Glucose 159 H POC Capillary Glucose 153 H Lactic Acid 0.8 Calcium 7.8 L Total Bilirubin 0.8 AST 29 ALT 70 H Alkaline Phosphatase 143 H Total Protein 6.2 L Albumin 2.8 L Procalcitonin 6.1 Random Vancomycin 11/30/24 12/01/24 12/01/24 17:09 00:16 05:14 WBC 14.8 H RBC 2.87 L Hgb 8.4 L Hct 26.8 L MCV 93.4 MCH 29.3 MCHC 31.3 L RDW 14.6 H Plt Count 214 MPV 11.3 H Immature Gran % (Auto) 1.5 H Neut % (Auto) 82.7 H Lymph % (Auto) 5.[address] [facility] % (Auto) 7.0 Eos % (Auto) 2.8 Baso % (Auto) 0.3 Lymph # (Auto) 0.[address] [facility] # (Auto) 1.0 H Eos # (Auto) 0.4 H Baso # (Auto) 0.0 Abs Immat Gran (auto) 0.22 H Absolute Neuts (auto) 12.2 H Absolute Nucleated RBC 0.000 Nucleated RBC % 0.0 Puncture Site ABG pH ABG pCO2 ABG pO2 ABG PO2/FiO2 Ratio ABG HCO3 ABG O2 Saturation ABG O2 Content ABG Base Excess A-a Gradient Oxyhemoglobin Total Hemoglobin O2 Delivery Device O2 Liters/Min FiO2 Sodium 137 Potassium 3.8 Chloride 100 Carbon Dioxide 28 Anion Gap 9 BUN 53 H Creatinine 6.58 H Estim Creat Clear Calc 12 Estimated GFR 9 L Glucose 146 H POC Capillary Glucose 124 H 141 H Lactic Acid Calcium 7.4 L Total Bilirubin 0.7 AST 27 ALT 56 H Alkaline Phosphatase 123 Total Protein 5.9 L Albumin 2.6 L Procalcitonin Random Vancomycin 17.0 12/01/24 06:06 WBC RBC Hgb Hct MCV MCH MCHC RDW Plt Count MPV Immature Gran % (Auto) Neut % (Auto) Lymph % (Auto) [facility] % (Auto) Eos % (Auto) Baso % (Auto) Lymph # (Auto) [facility] # (Auto) Eos # (Auto) Baso # (Auto) Abs Immat Gran (auto) Absolute Neuts (auto) Absolute Nucleated RBC Nucleated RBC % Puncture Site ABG pH ABG pCO2 ABG pO2 ABG PO2/FiO2 Ratio ABG HCO3 ABG O2 Saturation ABG O2 Content ABG Base Excess A-a Gradient Oxyhemoglobin Total Hemoglobin O2 Delivery Device O2 Liters/Min FiO2 Sodium Potassium Chloride Carbon Dioxide Anion Gap BUN Creatinine Estim Creat Clear Calc Estimated GFR Glucose POC Capillary Glucose 142 H Lactic Acid Calcium Total Bilirubin AST ALT Alkaline Phosphatase Total Protein Albumin Procalcitonin Random Vancomycin Quality VTE Prophylaxis VTE prophylaxis: mechanical ordered
[2024-12-01] MEDS: EPOETIN ALFA-EPBX 10,000 UNITS/ML VIAL 10000 UNITS IV PUSH (10:28)
--- NOTE | 2024-12-01 12:10 | P.PNNP_ITS ---
Progress Note: A&P Assessment and Plan (1) End stage renal disease: Code(s): N18.6 - End stage renal disease Status: Chronic Assessment and Plan: * HD today * continue Fri/Fri/Friday dialysis schedule while hospitalized * follow electrolytes, volume status, and clearance * kidney disease due to biopsy proven diabetes and hypertension along with vascular disease (CVA + hyperlipemia) (2) Gangrene of toe of left foot: Code(s): I96 - Gangrene, not elsewhere classified Status: Acute Assessment and Plan: * as noted by clinical exam * Surgery recommendations noted * s/p open transmetatarsal amputation left 2nd toe (11/29) * on IV antibiotics (3) Cellulitis of left foot: Code(s): L03.116 - Cellulitis of left lower limb Status: Acute Assessment and Plan: * as noted on presentation * likely a complication of diabetes and #2 * on antibiotics (4) Bacteremia: Code(s): R78.81 - Bacteremia Status: Acute Assessment and Plan: * as noted: * blood cultures (11/26): MRSA * blood cultures (11/28): MRSA * presumably related to #2 and #3 * plan KATLIN later for further assessment * on antibiotics * follow culture data (5) Altered mental status: Code(s): R41.82 - Altered mental status, unspecified Status: Acute Assessment and Plan: * clinically better today * as noted this 11/30 morning * evaluation noted: * ABG: pH 7.538, pCO2 35.8, pO2 53.2, HCO3 29.8 * lactic normal; procalcitonin elevated at 6.1; glucose okay * CT of brain: unchanged small old infarcts in the right frontal lobe, abdelrahman, right lentiform nucleus and left thalamus; no acute intracranial process; age-related changes including mild diffuse volume loss and moderate scattered white matter hypoattenuation consistent with chronic small vessel ischemic disease * CXR: Opacities in the right mid and lower lung zones which could represent atelectasis, aspiration and/or pneumonia; small right pleural effusion * limiting narcotics as tolerated * continue supportive therapy (6) Aspiration pneumonia: Code(s): J69.0 - Pneumonitis due to inhalation of food and vomit Status: Acute Assessment and Plan: * as suggested by CXR on 11/30 * on antibiotics * viral testing (COVID/RSV/influenza) negative * NPO as failed modified barium swallow * speech therapy following * may need alternative nutrition (doboff/PPN...etc) * follow respiratory status (7) Anemia: Code(s): D64.9 - Anemia, unspecified Status: Chronic Assessment and Plan: * due to ESRD with worsening due to acute illness/infection * follow trend of H/H * Epogen with HD (8) Heart failure with preserved ejection fraction: Qualifiers: Heart failure chronicity: unspecified Qualified Code(s): I50.30 - Unspecified diastolic (congestive) heart failure Code(s): I50.30 - Unspecified diastolic (congestive) heart failure Status: Chronic Assessment and Plan: * appears compensated * fluid removal with dialysis to maintain euvolemia * contineu supportive therapy (9) Hypertension: Qualifiers: Hypertension type: unspecified Qualified Code(s): I10 - Essential (primary) hypertension Code(s): I10 - Essential (primary) hypertension Status: Chronic Assessment and Plan: * reasonable control at this time * known history of poor control at baseline * follow trend of hemodynamics (10) Diabetes: Qualifiers: Diabetes mellitus type: type 2 Diabetes mellitus halfway insulin use: without rn long term care use Diabetes mellitus complication status: with kidney complications Diabetes mellitus complication detail: with chronic kidney disease Chronic kidney disease stage: on chronic dialysis Qualified Code(s): E 11.22 - Type 2 diabetes mellitus with diabetic chronic kidney disease; N18.6 - End stage renal disease; Z99.2 - Dependence on renal dialysis Code(s): E11.9 - Type 2 diabetes mellitus without complications Status: Chronic Assessment and Plan: * follow accu-cheks * glycemic control per hospitalists Will continue to follow. L Subjective Date/time seen: 12/01/24 12:10 Interval history: Follow-up for end stage renal disease on hemodialysis. Tolerating dialysis treatment at the time of my visit (seen on HD at 12:00PM); mentation seems to be doing better since I saw him yesterday; evaluation for AMS yesterday reviewed; noted plans for KATLIN this afternoon; only real complaint is that of fatigue/generalized weakness. Exam 2 Narrative: General: WD/WN male in NAD Heart: normal S1 and S2; no rub Lungs: clear anteriorly Abdomen: soft, nontender, nondistended, positive bowel sounds Extremities: no cyanosis or clubbing; + edema left foot Skin: left foot dressings present Objective Data Vital Signs Vital Signs: Vital Signs Temp Pulse Resp BP Pulse Ox O2 Del Method O2 Flow Rate 12/01/24 12:05 55 L 12/01/24 12:00 56 L 156/68 H 12/01/24 11:45 56 L 150/73 H 12/01/24 11:30 58 L 131/87 12/01/24 11:15 55 L 152/67 H 12/01/24 11:00 54 L 152/67 H 12/01/24 10:45 54 L 153/66 H 12/01/24 10:30 54 L 152/68 H 12/01/24 10:15 54 L 148/66 H 12/01/24 10:00 52 L 148/62 H 12/01/24 09:45 50 L 144/66 H 12/01/24 09:30 51 L 143/64 H 12/01/24 09:15 53 L 139/95 H 12/01/24 09:00 57 L 134/67 12/01/24 08:45 53 L 143/66 H 12/01/24 08:40 52 L 144/66 H 12/01/24 08:27 97.5 F L 54 L 16 140/66 12/01/24 08:10 Room Air 12/01/24 08:00 53 L 12/01/24 07:36 97.7 F 97 18 142/74 H 98 12/01/24 04:00 52 L 12/01/24 00:00 63 11/30/24 20:00 63 11/30/24 20:00 Room Air 11/30/24 19:20 98.6 F 62 18 130/58 L 97 Intake/Output Intake/Output: Intake & Output 11/28/24 11/29/24 11/30/24 12/01/24 23:59 23:59 23:59 23:59 Intake Total 8397 059 6001 100 Output Total 2600 2000 Balance 1780 -2224 1700 -1900 Meds/Results Medications: Active Medications Generic Name Dose Route Start Last Admin Trade Name Freq PRN Reason Stop Dose Admin Amlodipine Besylate 10 mg 11/27/24 09:00 11/30/24 08:30 Amlodipine Besylate 10 Mg Tablet PO 10 mg DAILY LILIAN Administration Atorvastatin Calcium 80 mg 11/27/24 09:00 12/01/24 11:36 Atorvastatin 40 Mg Tablet PO Not Given DAILY [facility] Carvedilol 25 mg 11/26/24 21:00 11/30/24 08:29 Carvedilol 25 Mg Tablet PO 25 mg Q12HR LILIAN Administration Clopidogrel Bisulfate 75 mg 11/27/24 09:00 Clopidogrel Bisulfate 75 Mg Tablet PO DAILY [facility] Dextrose 12.5 gm 11/30/24 16:34 Dextrose 50% 25 Gm/50 Ml Syringe IV PUSH PRN PRN Hypoglycemia Protocol Docusate Sodium 100 mg 11/26/24 17:00 11/30/24 17:21 Docusate Sodium 100 Mg Capsule PO Not Given BID [facility] Epoetin Romain-epbx 10,000 units 12/01/24 18:36 12/01/24 10:28 Epoetin Romain-Epbx 10,000 Units/Ml Vial IV PUSH 12/01/24 18:37 10,000 units ONCE ONE Administration Glucagon 1 mg 11/30/24 16:34 Glucagon For Inj 1 Mg Vial IM PRN PRN Hypoglycemia Protocol Glucose 15 gm 11/30/24 16:34 Glucose Oral Gel 15 Gm Of Glucse In 37.5 Gm Tube PO PRN PRN Hypoglycemia Protocol Hydralazine HCl 50 mg 11/26/24 17:00 11/30/24 12:49 Hydralazine Hcl 50 Mg Tablet PO Not Given TID [facility] Hydralazine HCl 10 mg 11/30/24 17:13 Hydralazine Hcl 20 Mg/Ml Vial IV PUSH Q8H PRN SBP>180 Albumin Human 50 mls @ 999 mls/hr 11/27/24 06:51 Albutein IVPB 12/27/24 06:50 Q10M PRN HYPOTENSION Ibuprofen 800 mg in 200 mls @ 400 mls/hr 11/29/24 17:35 11/30/24 21:19 Caldolor 800 Mg/200 Ml IVPB Infused Q6H PRN Infusion Breakthrough Pain Rated 1-3 or NPO Cefepime HCl 1 gm in 50 mls @ 100 mls/hr 11/30/24 18:00 11/30/24 17:50 Maxipime 1 Gm/Ns 50 Ml IVPB 100 mls/hr DAILY@1800 LILIAN Administration Metronidazole 500 mg in 100 mls @ 100 mls/hr 11/30/24 14:00 12/01/24 14:33 Flagyl 500 Mg/Iso Soln 100 Ml IVPB 100 mls/hr Q8H LILIAN Administration Dextrose/Sodium Chloride 1,000 mls @ 80 mls/hr 11/30/24 16:35 12/01/24 08:30 Dextrose 5% Sodium Chloride 0.9% IV CONT 0 mls/hr .[id number] LILIAN Infusion Dextrose 1,000 mls @ 100 mls/hr 11/30/24 16:34 Dextrose 5% 1,000 Ml IVPB PRN PRN Hypoglycemia Protocol Vancomycin HCl 750 mg in 250 mls @ 250 mls/hr 12/01/24 18:00 Vancomycin 750 Mg/Ns 250 Ml IVPB 12/01/24 18:59 ONCE ONE Insulin Aspart 2 - 5 units 12/01/24 00:00 12/01/24 06:08 Insulin Aspart (*Bkc) 100 Units/Ml SUB-Q Not Given Q6HR [facility] Protocol Mupirocin 1 applic 11/28/24 09:00 12/01/24 08:18 Mupirocin 2% Oint 22 Gm Tube EACH NARE 12/02/24 21:01 1 applic Q12HR LILIAN Administration Naloxone HCl 0.1 mg 11/29/24 17:35 Naloxone Hcl 0.4 Mg/Ml Vial IV PUSH Q2M PRN Opiate Reversal Ondansetron HCl 4 mg 11/26/24 14:10 Ondansetron Inj 4 Mg/2 Ml Vial IV PUSH Q4H PRN Nausea Oxycodone/Acetaminophen 0.5 tablet 11/29/24 17:35 Oxycodone/Acetaminophen (*Crx) 5-325 Mg Tablet PO Q4H PRN Pain Rated 4-6 Polyethylene Glycol 17 gm 11/30/24 09:00 11/30/24 08:29 Polyethylene Glycol 3350 17 Gm Powd.Pack PO 17 gm QAM LILIAN Administration Senna/Docusate Sodium 2 tab 11/29/24 21:00 11/29/24 20:29 Senna/Docusate Sodium Tablet PO 2 tab HS LILINA Administration Vancomycin HCl 1 each 11/26/24 13:16 Vancomycin For Hemodialysis IVPB PRN PRN Vancomycin Protocol Radiology Results: ITS Impressions Foot X-Ray 11/26/24 12:58 Impression: 1: Moderate soft tissue swelling of the second digit. The distal phalanx not well visualized. Cannot exclude osteomyelitis. 2: Extra-articular fracture left fifth proximal phalanx. Duplex Scan Lower Extremity Artery 11/26/24 13:53 IMPRESSION: 1. No evident hemodynamically significant stenosis either by follow-up elevation of peak systolic velocities or by direct visualization grayscale imaging with brisk systolic upstrokes arteries of the bilateral lower limbs. Head CT 11/30/24 12:22 IMPRESSION: 1. . 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 No acute intracranial process. 2. Age-related changes including mild diffuse volume loss and moderate scattered white matter hypoattenuation consistent with chronic small vessel ischemic disease. Chest X-Ray 11/30/24 12:37 IMPRESSION: 1. Opacities in the right mid and lower lung zones which could represent atelectasis, aspiration and/or pneumonia. 2. Small right pleural effusion. Modified Barium Swallow 11/30/24 13:31 IMPRESSION: Oropharyngeal dysphagia with laryngeal penetration and aspiration. Please correlate with speech pathologist findings and specific feeding recommendations. Labs Labs: Laboratory Tests 12/01/24 05:14 12/01/24 05:14 Calcium 7.4 L Total Bilirubin 0.7 AST 27 ALT 56 H Alkaline Phosphatase 123 Total Protein 5.9 L Albumin 2.6 L Random Vancomycin 17.0 Microbiology 11/28/24 11:10 Blood Blood Culture - Preliminary Staphylococcus aureus 11/28/24 11:17 Blood Blood Culture - Preliminary Staphylococcus aureus 11/29/24 16:06 Foot Left Anaerobic Culture - Preliminary 11/29/24 16:06 Foot Left Aerobic Culture - Preliminary Staphylococcus aureus
--- NOTE | 2024-12-01 12:52 | PC.NURSE ---
Patient taken for KATLIN per bed at 1245
--- NOTE | 2024-12-01 13:05 | WPDANESEPPF ---
Anes - Initial Pre Proc Eval Procedure: Operation Date: 11/29/24 16:00 Proposed Procedures p Left Second Toe Transmetatarsal Amputation - Kaveh Goodson MD Operation Date: 12/01/24 13:00 Proposed Procedures p Trans Esophageal Echo - Brian Michelle MD Date/Time: 12/01/24 13:05 Surgeon: Corby Aly MD Pre Op Diagnosis: BACTEREMIA Patient Data Age: 59 Gender: M Height: 1.8 m Weight: 86.8 kg Last Vital Signs Temp 97.5 F L 12/01/24 08:27 Pulse 56 L 12/01/24 12:00 Resp 16 12/01/24 08:27 BP 156/68 H 12/01/24 12:00 Pulse Ox 98 12/01/24 07:36 O2 Del Method Room Air 12/01/24 08:10 O2 Flow Rate 8 11/29/24 16:27 Allergies Allergy/AdvReac Type Severity Reaction Status Date / Time tree nut Allergy Intermediate Itching Verified 11/29/24 15:34 Penicillins Allergy Unknown Unknown Verified 11/29/24 15:34 Home Medications ?Medication ?Instructions ?Recorded ?Confirmed ?Type amlodipine 10 mg tablet 10 mg PO DAILY 01/25/22 11/26/24 History atorvastatin 80 mg tablet 80 mg PO DAILY 01/25/22 11/26/24 History carvedilol 25 mg tablet 25 mg PO BID 01/25/22 11/26/24 History clopidogrel 75 mg tablet 75 mg PO DAILY 01/25/22 11/26/24 History hydralazine 50 mg tablet 50 mg PO TID 08/11/23 11/26/24 History Laboratory Tests 11/30/24 12/01/24 12/01/24 17:09 00:16 05:14 WBC 14.8 H K/mm3 (4.5-10.0) RBC 2.87 L M/mm3 (4.6-6.20) Hgb 8.4 L g/dL (14.0-18.0) Hct 26.8 L % (42.0-52.0) MCV 93.4 fl (80-100) MCH 29.3 pg (26-34) MCHC 31.3 L g/dl (32-36) RDW 14.6 H % (11.5-14.5) Plt Count 214 k/mm3 (150-375) MPV 11.3 H fl (7.4-10.4) Immature Gran % (Auto) 1.5 H % (0-0.5) Neut % (Auto) 82.7 H % (45.5-73.1) Lymph % (Auto) 5.7 L % (18.3-44.2) [place] % (Auto) 7.0 % (2.6-8.5) Eos % (Auto) 2.8 % (0-4.4) Baso % (Auto) 0.3 % (0.2-1.2) Lymph # (Auto) 0.84 L K/mm3 (0.9-3.2) [place] # (Auto) 1.0 H K/mm3 (0.1-0.6) Eos # (Auto) 0.4 H K/mm3 (0-0.3) Baso # (Auto) 0.0 K/mm3 (0.0-0.1) Abs Immat Gran (auto) 0.22 H K/mm3 (0.00-0.031) Absolute Neuts (auto) 12.2 H K/mm3 (1.3-6.7) Absolute Nucleated RBC 0.000 K/mm3 (0.0-0.012) Nucleated RBC % 0.0 % (0.0-0.2) Sodium 137 mmol/L (137-145) Potassium 3.8 mmol/L (3.4-5.0) Chloride 100 mmol/L (98-107) Carbon Dioxide 28 mmol/L (22-30) Anion Gap 9 mmol/L (4-12) BUN 53 H mg/dL (9-20) Creatinine 6.58 H mg/dL (0.7-1.3) Estim Creat Clear Calc 12 ml/min Estimated GFR 9 L (59 - ) Glucose 146 H mg/dL (65-110) POC Capillary Glucose 124 H mg/dl 141 H mg/dl (65-105) (65-105) Calcium 7.4 L mg/dL (8.4-10.2) Total Bilirubin 0.7 mg/dL (0.2-1.3) AST 27 U/L (17-59) ALT 56 H U/L (6-50) Alkaline Phosphatase 123 U/L (38-126) Total Protein 5.9 L g/dL (6.3-8.2) Albumin 2.6 L g/dL (3.5-5.1) Random Vancomycin 17.0 ug/mL (10-20) 12/01/24 06:06 WBC RBC Hgb Hct MCV MCH MCHC RDW Plt Count MPV Immature Gran % (Auto) Neut % (Auto) Lymph % (Auto) [place] % (Auto) Eos % (Auto) Baso % (Auto) Lymph # (Auto) [place] # (Auto) Eos # (Auto) Baso # (Auto) Abs Immat Gran (auto) Absolute Neuts (auto) Absolute Nucleated RBC Nucleated RBC % Sodium Potassium Chloride Carbon Dioxide Anion Gap BUN Creatinine Estim Creat Clear Calc Estimated GFR Glucose POC Capillary Glucose 142 H mg/dl (65-105) Calcium Total Bilirubin AST ALT Alkaline Phosphatase Total Protein Albumin Random Vancomycin Patient hx anesthesia problems: none Family hx anesthesia problems: none Results Review: All pre-operative results and documents have been reviewed as part of the pre-operative evaluation. FORMERLY [facility], [facility] Past Medical History Medical History Aortic stenosis mod to severe Tobacco abuse Elevated d-dimer Heart failure with preserved ejection fraction Echo in November 2022 showed normal LV size and function with an EF of 50 to 55%, mildly increased left ventricular wall thickness, and grade 2 diastolic dysfunction. 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 Cerebrovascular accident (02/2019) Anxiety Hyperlipidemia Hypertension Surgical History Surgical History History of cardiac catheterization (2019) History of colonoscopy with polypectomy Family History Family History Mother Carcinoma of colon Father Family history of diabetes mellitus in first degree relative Grandparent Diabetes mellitus Social History Social History Social History: Surrogate medical decision maker: Raina Yun, sibling. Code status: Do not resuscitate. Smoking packs per day: 0.5 Smoking cigarettes per day: 10.0 Years smoked: 40 Smoking pack-years: 20.00 Smoking status: Current every day smoker Alcohol intake: never Substance use: never Substance use type: does not use Do You Feel Safe in your Home?: Yes Lack of Transportation: YES Lack of Food: Never True Current Housing: I Have Housing Concerned About Future Housing: No Difficulty Paying Gas/Electric Bills: No Difficulty Paying for Meds: No Currently Unemployed: No Education: High School Diploma/GED Difficulty w/ Childcare or Family Care: No Living arrangements: with family Additional living arrangements comments: Lives in [place]. Has 4 children. [employer]. Additional occupation/education comments: [employer]. Spiritual care concerns: No Anes - Eval Final PreProcedure Day of Procedure 12/01/24 13:05 Patient weight: normal Heart: regular rate and rhythm Lungs: clear to auscultation Airway: Mallampati scale class II Neurological: alert and oriented Last oral intake: >/= 8 hours ASA classification: IV Emergent: no Anesthetic plan: proceed Anesthesia type and monitoring: general GIVS and standard monitoring Results Review: All pre-operative results and documents have been reviewed as part of the pre-operative evaluation. Informed Consent: The patient's anesthetic plan and its attendant risks and benefits were discussed with the patient/family/POA. Questions were solicited and answers provided to the satisfaction of the patient/family/POA.
--- NOTE | 2024-12-01 13:36 | WPDHPUPDATE1 ---
History and Physical Update Update Date/Time: 12/01/24 13:36 History and Physical has been reviewed, including an updated exam of the patient. There are NO changes in the patient's condition. Risks, benefits, and alternatives have been discussed and questions answered. Patient agrees to proceed with procedure.
--- NOTE | 2024-12-01 13:36 | WPDTEECHO ---
KATLIN TransEsophageal Echocardiogram Date of procedure: 12/01/24 Procedure Type: Date Of Procedure: 12/01/2024 Brief History Of Present Illness: Patient is a 59 year old male who is referred for KATLIN for bacteremia. Procedure In Detail: After verbal and written informed consent was obtained, the patient risks, benefits, and alternatives explained in detail. The patient agreed to proceed with the plan of care as outlined above.?The patient was then placed in the appropriate 30 to 45 degree angle supine position at a slight left lateral decubitus position.?Patient was monitored throughout the study with telemetry, oxygen saturation, end-tidal CO2 monitoring, blood pressure, heart rate, and respirations.?The posterior hypopharynx was then locally anesthetized using repeated administration of Hurricaine spray. After local anesthetic of the posterior hypopharynx was achieved and the oral bite block placed, sedation was administered by the Anesthesia team.?After confirmation of adequate moderate sedation, the transesophageal echocardiogram probe was advanced through the oral bite block into the posterior hypopharynx and into the esophagus easily and without complication.?Multiple, multiplanar echocardiographic images were obtained in multiple standard re-projections.?Color-flow Doppler were utilized in conjunction with this study.?At the conclusion of the study, the transesophageal echocardiogram probe was removed easily and without complication. The patient tolerated the procedure well without difficulty.?Patient was in sinus rhythm throughout the study. Moderate Sedation / Anesthesia Administration: Sedation administered by the Anesthesia team. FINDINGS: LEFT VENTRICLE: Size and systolic function were within normal limits. RIGHT VENTRICLE:?Size and systolic function within normal limits. LEFT ATRIUM: Normal size. RIGHT ATRIUM: Normal size. INTERATRIAL SEPTUM: Interatrial septum is anatomically normal without evidence of shunt with color-flow Doppler. MITRAL VALVE: The mitral valve annulus is moderately calcified. No valvular vegetations. Mild mitral valve regurgitation. AORTIC VALVE: The aortic valve is severely calcified. Appears to be a trileaflet valve. There is severe aortic stenosis with an aortic valve area of 0.9cm2 by planimetry. TRICUSPID VALVE: The tricuspid valve is anatomically normal with normal leaflet excursion.? No mobile elements identified. PULMONIC VALVE: Pulmonic valve was not well visualized, however, no obvious vegetations in the pulmonic valve area. LEFT ATRIAL APPENDAGE: Anatomically normal structure with prominent pectinate muscles without thrombus or vegetation identified. PERICARDIUM: The pericardium was anatomically normal without significant pericardial effusion. ? AORTA: Mild atherosclerotic disease. CONCLUSION: No evidence of infective endocarditis. The aortic valve is severely calcified with severe aortic stenosis with an ALBINO of 0.9cm2 by planimetry. Complications: None
--- NOTE | 2024-12-01 13:44 | P.PNCA_ITS ---
Progress Note: A&P Assessment and Plan (1) MRSA bacteremia: Code(s): R78.81 - Bacteremia; B95.62 - Methicillin resistant Staphylococcus aureus infection as the cause of diseases classified elsewhere Status: Acute Plan 1. MRSA bacteremia 2. Gangrenous toe, diabetes infection of foot s/p open transmetatarsal amputation of left second toe on 11/29 3. Moderate aortic stenosis, possibly severe per TTE 4. ESRD on HD 5. Diabetes mellitus 6. History of stroke 7. Hypertension 8. Hyperlipidemia 9. Carotid artery disease 10. Chronic heart failure with preserved LVEF PLAN: -KATLIN negative for infective endocarditis. -KATLIN shows severe aortic stenosis with ALBINO of 0.9cm2. Will arrange outpatient follow up for his valvular disease. Avoid hypotension. Cardiology will sign off. Subjective Date/time seen: 12/01/24 13:44 Interval history: Reason for visit: Bacteremia HPI: We are consulted for KATLIN for persistent bacteremia. Savage is a 59 year old male with ESRD on HD, diabetes mellitus, history of stroke, hypertension, hyperlipidemia, carotid artery disease, chronic heart failure with preserved LVE F who is admitted with gangrenous toe, diabetes infection of foot, and MRSA bacteremia. Underwent open transmetatarsal amputation of left second toe on 11/29. Has had persistent bacteremia, therefore, KATLIN requested to rule out infective endocarditis. Echocardiogram this admission shows: LVEF 60-65%. Mild AR Heavily calcified aortic valve, possibly bicuspid. At least moderate , possibly severe given mean gradient of 44mmHg. Mild-moderate MR. Mild TR. Mild LA. EKG with sinus rhythm, LVH with secondary STTW abnormality. Telemetry with sinus rhythm with occasional PVCs. Date of service 12/01: KATLIN today. Review of Systems Cardiovascular: Cardiovascular: Reports as per HPI Exam Const: Other: Chronically ill appearing male Resp: Effort & Inspection: normal respiratory effort Cardio: Rate: regular rate Rhythm: regular rhythm Heart sounds: Murmur heart sound present Neuro: Speech: normal speech Psych: Mental Status: mental status grossly normal Affect: normal affect Objective Data Vital Signs Vital Signs: Vital Signs - 24 hr 11/30/24 15:20 11/30/24 16:04 11/30/24 19:20 Temperature 37.1 C 37.0 C Pulse Rate 59 L 59 L 62 Respiratory Rate 20 18 Blood Pressure 115/55 L 130/58 L Pulse Oximetry 97 97 Oxygen Delivery Oxygen Flow Rate 11/30/24 20:00 11/30/24 20:00 12/01/24 00:00 Temperature Pulse Rate 63 63 Respiratory Rate Blood Pressure Pulse Oximetry Oxygen Delivery Room Air Oxygen Flow Rate 12/01/24 04:00 12/01/24 07:36 12/01/24 08:00 Temperature 36.5 C Pulse Rate 52 L 97 53 L Respiratory Rate 18 Blood Pressure 142/74 H Pulse Oximetry 98 Oxygen Delivery Oxygen Flow Rate 12/01/24 08:10 12/01/24 08:27 12/01/24 08:40 Temperature 36.4 C L Pulse Rate 54 L 52 L Respiratory Rate 16 Blood Pressure 140/66 144/66 H Pulse Oximetry Oxygen Delivery Room Air Oxygen Flow Rate 12/01/24 08:45 12/01/24 09:00 12/01/24 09:15 Temperature Pulse Rate 53 L 57 L 53 L Respiratory Rate Blood Pressure 143/66 H 134/67 139/95 H Pulse Oximetry Oxygen Delivery Oxygen Flow Rate 12/01/24 09:30 12/01/24 09:45 12/01/24 10:00 Temperature Pulse Rate 51 L 50 L 52 L Respiratory Rate Blood Pressure 143/64 H 144/66 H 148/62 H Pulse Oximetry Oxygen Delivery Oxygen Flow Rate 12/01/24 10:15 12/01/24 10:30 12/01/24 10:45 Temperature Pulse Rate 54 L 54 L 54 L Respiratory Rate Blood Pressure 148/66 H 152/68 H 153/66 H Pulse Oximetry Oxygen Delivery Oxygen Flow Rate 12/01/24 11:00 12/01/24 11:15 12/01/24 11:30 Temperature Pulse Rate 54 L 55 L 58 L Respiratory Rate Blood Pressure 152/67 H 152/67 H 131/87 Pulse Oximetry Oxygen Delivery Oxygen Flow Rate 12/01/24 11:45 12/01/24 12:00 12/01/24 12:05 Temperature Pulse Rate 56 L 56 L 55 L Respiratory Rate Blood Pressure 150/73 H 156/68 H Pulse Oximetry Oxygen Delivery Oxygen Flow Rate 12/01/24 12:11 12/01/24 13:15 Temperature Pulse Rate 59 L 60 Respiratory Rate 15 Blood Pressure 152/72 H 146/65 H Pulse Oximetry 100 Oxygen Delivery Nasal Cannula Oxygen Flow Rate 2 Intake/Output Intake/Output: Intake & Output 11/28/24 11/29/24 11/30/24 12/01/24 23:59 23:59 23:59 23:59 Intake Total 1456 237 4614 100 Output Total 2600 0 Balance 1780 -2224 1700 100 Meds/Results Medications: Active Medications Generic Name Dose Route Start Last Admin Trade Name Freq PRN Reason Stop Dose Admin Amlodipine Besylate 10 mg 11/27/24 09:00 11/30/24 08:30 Amlodipine Besylate 10 Mg Tablet PO 10 mg DAILY LILIAN Administration Atorvastatin Calcium 80 mg 11/27/24 09:00 12/01/24 11:36 Atorvastatin 40 Mg Tablet PO Not Given DAILY LILIAN Carvedilol 25 mg 11/26/24 21:00 11/30/24 08:29 Carvedilol 25 Mg Tablet PO 25 mg Q12HR LILIAN Administration Clopidogrel Bisulfate 75 mg 11/27/24 09:00 Clopidogrel Bisulfate 75 Mg Tablet PO DAILY LILIAN Dextrose 12.5 gm 11/30/24 16:34 Dextrose 50% 25 Gm/50 Ml Syringe IV PUSH PRN PRN Hypoglycemia Protocol Docusate Sodium 100 mg 11/26/24 17:00 11/30/24 17:21 Docusate Sodium 100 Mg Capsule PO Not Given BID LILIAN Epoetin Romain-epbx 10,000 units 12/01/24 18:36 12/01/24 10:28 Epoetin Romain-Epbx 10,000 Units/Ml Vial IV PUSH 12/01/24 18:37 10,000 units ONCE ONE Administration Glucagon 1 mg 11/30/24 16:34 Glucagon For Inj 1 Mg Vial IM PRN PRN Hypoglycemia Protocol Glucose 15 gm 11/30/24 16:34 Glucose Oral Gel 15 Gm Of Glucse In 37.5 Gm Tube PO PRN PRN Hypoglycemia Protocol Hydralazine HCl 50 mg 11/26/24 17:00 11/30/24 12:49 Hydralazine Hcl 50 Mg Tablet PO Not Given TID LILIAN Hydralazine HCl 10 mg 11/30/24 17:13 Hydralazine Hcl 20 Mg/Ml Vial IV PUSH Q8H PRN SBP>180 Albumin Human 50 mls @ 999 mls/hr 11/27/24 06:51 Albutein IVPB 12/27/24 06:50 Q10M PRN HYPOTENSION Ibuprofen 800 mg in 200 mls @ 400 mls/hr 11/29/24 17:35 11/30/24 21:19 Caldolor 800 Mg/200 Ml IVPB Infused Q6H PRN Infusion Breakthrough Pain Rated 1-3 or NPO Cefepime HCl 1 gm in 50 mls @ 100 mls/hr 11/30/24 18:00 11/30/24 17:50 Maxipime 1 Gm/Ns 50 Ml IVPB 100 mls/hr DAILY@1800 LILIAN Administration Metronidazole 500 mg in 100 mls @ 100 mls/hr 11/30/24 14:00 12/01/24 06:38 Flagyl 500 Mg/Iso Soln 100 Ml IVPB Infused Q8H LILIAN Infusion Dextrose/Sodium Chloride 1,000 mls @ 80 mls/hr 11/30/24 16:35 12/01/24 08:30 Dextrose 5% Sodium Chloride 0.9% IV CONT 0 mls/hr .[id number] LILIAN Infusion Dextrose 1,000 mls @ 100 mls/hr 11/30/24 16:34 Dextrose 5% 1,000 Ml IVPB PRN PRN Hypoglycemia Protocol Vancomycin HCl 750 mg in 250 mls @ 250 mls/hr 12/01/24 18:00 Vancomycin 750 Mg/Ns 250 Ml IVPB 12/01/24 18:59 ONCE ONE Insulin Aspart 2 - 5 units 12/01/24 00:00 12/01/24 06:08 Insulin Aspart (*Bkc) 100 Units/Ml SUB-Q Not Given Q6HR [facility] Protocol Mupirocin 1 applic 11/28/24 09:00 12/01/24 08:18 Mupirocin 2% Oint 22 Gm Tube EACH NARE 12/02/24 21:01 1 applic Q12HR LILIAN Administration Naloxone HCl 0.1 mg 11/29/24 17:35 Naloxone Hcl 0.4 Mg/Ml Vial IV PUSH Q2M PRN Opiate Reversal Ondansetron HCl 4 mg 11/26/24 14:10 Ondansetron Inj 4 Mg/2 Ml Vial IV PUSH Q4H PRN Nausea Oxycodone/Acetaminophen 0.5 tablet 11/29/24 17:35 Oxycodone/Acetaminophen (*Crx) 5-325 Mg Tablet PO Q4H PRN Pain Rated 4-6 Polyethylene Glycol 17 gm 11/30/24 09:00 11/30/24 08:29 Polyethylene Glycol 3350 17 Gm Powd.Pack PO 17 gm QAM LILIAN Administration Senna/Docusate Sodium 2 tab 11/29/24 21:00 11/29/24 20:29 Senna/Docusate Sodium Tablet PO 2 tab HS LILIAN Administration Vancomycin HCl 1 each 11/26/24 13:16 Vancomycin For Hemodialysis IVPB PRN PRN Vancomycin Protocol Radiology Results: ITS Impressions Foot X-Ray 11/26/24 12:58 Impression: 1: Moderate soft tissue swelling of the second digit. The distal phalanx not well visualized. Cannot exclude osteomyelitis. 2: Extra-articular fracture left fifth proximal phalanx. Duplex Scan Lower Extremity Artery 11/26/24 13:53 IMPRESSION: 1. No evident hemodynamically significant stenosis either by follow-up elevation of peak systolic velocities or by direct visualization grayscale imaging with brisk systolic upstrokes arteries of the bilateral lower limbs. Head CT 11/30/24 12:22 IMPRESSION: 1. . 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 No acute intracranial process. 2. Age-related changes including mild diffuse volume loss and moderate scattered white matter hypoattenuation consistent with chronic small vessel ischemic disease. Chest X-Ray 11/30/24 12:37 IMPRESSION: 1. Opacities in the right mid and lower lung zones which could represent atelectasis, aspiration and/or pneumonia. 2. Small right pleural effusion. Modified Barium Swallow 11/30/24 13:31 IMPRESSION: Oropharyngeal dysphagia with laryngeal penetration and aspiration. Please correlate with speech pathologist findings and specific feeding recommendations. Labs Labs: Laboratory Results - last 24 hr 11/30/24 12/01/24 12/01/24 17:09 00:16 05:14 WBC 14.8 H RBC 2.87 L Hgb 8.4 L Hct 26.8 L MCV 93.4 MCH 29.3 MCHC 31.3 L RDW 14.6 H Plt Count 214 MPV 11.3 H Immature Gran % (Auto) 1.5 H Neut % (Auto) 82.7 H Lymph % (Auto) 5.7 L Petroleum % (Auto) 7.0 Eos % (Auto) 2.8 Baso % (Auto) 0.3 Lymph # (Auto) 0.84 L Petroleum # (Auto) 1.0 H Eos # (Auto) 0.4 H Baso # (Auto) 0.0 Abs Immat Gran (auto) 0.22 H Absolute Neuts (auto) 12.2 H Absolute Nucleated RBC 0.000 Nucleated RBC % 0.0 Sodium 137 Potassium 3.8 Chloride 100 Carbon Dioxide 28 Anion Gap 9 BUN 53 H Creatinine 6.58 H Estim Creat Clear Calc 12 Estimated GFR 9 L Glucose 146 H POC Capillary Glucose 124 H 141 H Calcium 7.4 L Total Bilirubin 0.7 AST 27 ALT 56 H Alkaline Phosphatase 123 Total Protein 5.9 L Albumin 2.6 L Random Vancomycin 17.0 12/01/24 06:06 WBC RBC Hgb Hct MCV MCH MCHC RDW Plt Count MPV Immature Gran % (Auto) Neut % (Auto) Lymph % (Auto) Petroleum % (Auto) Eos % (Auto) Baso % (Auto) Lymph # (Auto) Petroleum # (Auto) Eos # (Auto) Baso # (Auto) Abs Immat Gran (auto) Absolute Neuts (auto) Absolute Nucleated RBC Nucleated RBC % Sodium Potassium Chloride Carbon Dioxide Anion Gap BUN Creatinine Estim Creat Clear Calc Estimated GFR Glucose POC Capillary Glucose 142 H Calcium Total Bilirubin AST ALT Alkaline Phosphatase Total Protein Albumin Random Vancomycin
--- NOTE | 2024-12-01 14:25 | PC.NURSE ---
Patient returned from KATLIN per bed
[2024-12-01] MEDS: DEXTROSE 5%/0.9% SOD CHL 1,000 ML 80 ML IV CONT (17:47)
[2024-12-01] MEDS: CEFEPIME 1 GM/NS 50 ML 1 GM/50 ML BAG IVPB (17:48)
[2024-12-01 18:35] LABS: Glucose Point of Care 121 mg/dl (65-105)
[2024-12-01] MEDS: VANCOMYCIN 750 MG/NS 250 ML BAG 250 MG IVPB (18:40)
[2024-12-01 23:21] LABS: Glucose Point of Care 130 mg/dl (65-105)
[2024-12-02] VITALS (8 sets, daily range): BP systolic 130–153; BP diastolic 71–80; PULSE 61–86; RESP 16; TEMP 36.7; O2SAT 97–98
[2024-12-02] MEDS: metroNIDAZOLE 500 MG/ISO 100ML 500 MG/100 ML BAG 100 MG IVPB ×3 (05:06→21:05)
[2024-12-02 05:33] LABS: Basophils Absolute Auto 0.1 K/mm3 (0.0-0.1); Basophils Percent Auto 0.3 % (0.2-1.2); Eosinophils Absolute Auto 0.3 K/mm3 (0-0.3); Hematocrit 29.4 % (42.0-52.0); Immature Granulocyte Absolute 0.39 K/mm3 (0.00-0.031); Immature Granulocyte Percent A 2.4 % (0-0.5); Lymphocytes Absolute Auto 0.97 K/mm3 (0.9-3.2); Lymphocytes Percent Auto 5.9 % (18.3-44.2); Mean Corpuscular HGB Conc 30.6 g/dl (32-36); Mean Corpuscular Hemoglobin 28.9 pg (26-34); Mean Corpuscular Volume 94.5 fl (80-100); Mean Platelet Volume 10.9 fl (7.4-10.4); Monocytes Absolute Auto 1.2 K/mm3 (0.1-0.6); Monocytes Percent Auto 7.5 % (2.6-8.5); Neutrophils Absolute Auto 13.5 K/mm3 (1.3-6.7); Neutrophils Percent Auto 81.9 % (45.5-73.1); Platelet Count Result 256 k/mm3 (150-375); Red Blood Count 3.11 M/mm3 (4.6-6.20); Red Cell Distribution Width 14.7 % (11.5-14.5); White Blood Count 16.5 K/mm3 (4.5-10.0)
[2024-12-02 05:53] LABS: Alanine Aminotransferase 53 U/L (6-50); Albumin Level 2.9 g/dL (3.5-5.1); Alkaline Phosphatase 127 U/L (38-126); Anion Gap 10 mmol/L (4-12); Aspartate Amino Transferase 28 U/L (17-59); Bilirubin,Total 0.7 mg/dL (0.2-1.3); Blood Urea Nitrogen 30 mg/dL (9-20); Calcium 8.2 mg/dL (8.4-10.2); Carbon Dioxide 25 mmol/L (22-30); Chloride 105 mmol/L (98-107); Estimated CRCL calculation 17 ml/min; Estimated Glomerular Filt Rate 13; Glucose 143 mg/dL (65-110); Potassium 4.1 mmol/L (3.4-5.0); Sodium 140 mmol/L (137-145); Total Protein 6.7 g/dL (6.3-8.2)
[2024-12-02 07:32] LABS: Glucose Point of Care 139 mg/dl (65-105)
--- NOTE | 2024-12-02 11:24 | P.PNIM_ITS ---
Progress Note: A&P Assessment and Plan (1) Encephalopathy: Code(s): G93.40 - Encephalopathy, unspecified Status: Acute Assessment and Plan: On 11/30/2024: Severely lethargic with a right side lean and associated right gaze. His voice was increasingly garbled and his responses were slow. Remained AOx3 with otherwise benign neuro exam. Likely metabolic vs drug induced (received morphine overnight) encephalopathy. 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 No acute intracranial process. Age-related changes including mild diffuse volume loss and moderate scattered white matter hypoattenuation consistent with chronic small vessel ischemic disease. Mental status improving - Morphine was discontinued - ABG: pH 7.538, pCO2 35.8, pO2 53.2, HCO3 29.8. Started on 2L NC for hypoxemia. - Lactic WNL. Procal elevated at 6.1. Glucose WNL. (2) Bacteremia: Code(s): R78.81 - Bacteremia Status: Acute Assessment and Plan: Blood cultures obtained 11/26: staph aureus, Echo LVEF 60-65% with abnormal diastolic function and an abnormal appearing aortic valve that is heavily calcified and has at least moderate stenosis. KATLIN completed today with Dr Michelle: KATLIN negative for infective endocarditis. KATLIN shows severe aortic stenosis with ALBINO of 0.9cm2. Will arrange outpatient follow up for his valvular disease. Avoid hypotension * Patient remains on vancomycin per Sensitivities * Repeat blood cultures on 12/01 to reassess bacteremia (two days following source control). If cultures remain positive despite source control and KATLIN being negative consider other source, such as fistula. Patient has no other lines. * Repeat cultures NGTD (3) Aspiration pneumonia: Code(s): J69.0 - Pneumonitis due to inhalation of food and vomit Status: Acute Assessment and Plan: Per patient son, the patient has been coughing with meals for a few months. CXR: Opacities in the right mid and lower lung zones which could represent atelectasis, aspiration and/or pneumonia. Small right pleural effusion. * Patient failed MBS. Last meal 11/29. Remains NPO on D5NS. * Speech therapy following. * plan for follow-up modified barium swallow 12/03/24 * patient is fails discussed with family PEG tube placement comfort care * Follow WBC, serum electrolytes, temperature curves and cultures * continue with current IV antibiotics (4) Diabetic infection of left foot: Code(s): E11.628 - Type 2 diabetes mellitus with other skin complications; L08.9 - Local infection of the skin and subcutaneous tissue, unspecified Status: Acute Assessment and Plan: Erythema and edema to the dorsal aspect of the left foot extending to the ankle. Unable to palpate DP pulses. Black foul smelling 2nd toe of the left foot. Foot XR left showed moderate soft tissue swelling of the second digit with poor visualization fo the distal phalanx. Osteomyelitis cannot be rule out. Also extra articular fracture to the left fifth proximal phalanx, Duplex showed No evident hemodynamically significant stenosis either by follow-up elevation of peak systolic velocities or by direct visualization grayscale imaging with brisk systolic upstrokes arteries of the bilateral lower limbs. * continue with IV cefepime, Flagyl and vancomycin * Surgery consulted and performed a s/p open transmetatarsal amputation left 2nd toe on 11/[address] Goodson * Dressing changes per surgery (5) Gangrenous toe: Code(s): I96 - Gangrene, not elsewhere classified Status: Acute Assessment and Plan: See plan above (6) Aortic stenosis: Code(s): I35.0 - Nonrheumatic aortic (valve) stenosis Status: Acute Assessment and Plan: Echo ordered to rule out endocarditis LVEF 60-65% with abnormal diastolic function and an abnormal appearing aortic valve that is heavily calcified and has at least moderate stenosis. * Recommend cardiology follow up outpatient. (7) Type 2 diabetes mellitus: Code(s): E11.9 - Type 2 diabetes mellitus without complications Status: Acute Assessment and Plan: * hypoglycemia protocol * POC blood glucose Q6hr * correct regimen ordered - low dose TIDWM currently on dextrose 5 can no home medication * A1C 5.9 in desired range (8) Anemia: Code(s): D64.9 - Anemia, unspecified Status: Chronic Assessment and Plan: Chronic, likely secondary to ESRD * Given epoetin 10,000 units x1 on 11/27 * No signs of active bleeding * Monitor H&H Tranfuse of hgb <7.0 (9) Carotid artery disease: Qualifiers: Carotid artery disease type: stenosis Laterality: unspecified laterality Qualified Code(s): I65.29 - Occlusion and stenosis of unspecified carotid artery Code(s): I77.9 - Disorder of arteries and arterioles, unspecified Status: Chronic Assessment and Plan: * Continue Plavix post surgery (10) Hypertension: Qualifiers: Hypertension type: unspecified Qualified Code(s): I10 - Essential (primary) hypertension Code(s): I10 - Essential (primary) hypertension Status: Chronic Assessment and Plan: * continued amlodipine 10 mg daily, coreg 25 mg BID, hydralazine 50 mg TID placed on hold due to patient NPO * hydralazine 10 mg IV PRN * blood pressures stable, continue to monitor (11) End stage renal disease on dialysis: Code(s): N18.6 - End stage renal disease; Z99.2 - Dependence on renal dialysis Status: Acute Assessment and Plan: * ESRD on dialysis MWF * Nephrology consulted * avoid nephrotoxic medications * pharmacy to dose antibiotic (12) Heart failure with preserved ejection fraction: Qualifiers: Heart failure chronicity: unspecified Qualified Code(s): I50.30 - Unspecified diastolic (congestive) heart failure Code(s): I50.30 - Unspecified diastolic (congestive) heart failure Status: Chronic Assessment and Plan: Chronic, does not appear in acute exacerbation, Echo 07/2023 showed LVEF 40-45% with grade 2 diastolic dysfunction Echo ordered to rule out endocarditis LVEF 60-65% with abnormal diastolic function and an abnormal appearing aortic valve that is heavily calcified and has at least moderate stenosis. * Plan to follow up with primary electronic prepress system operator outpatient * monitor for fluid overload likely dialysis will assist * daily weights Plan Code status: Full code per patient DVT prophylaxis: Scd Stress ulcer prophylaxis: Protonix 40 daily PT/OT notes: Pending Disposition: patient continues admission for treatment necrotic left toe with amputation and bacteremia for set of cultures are pending for clearance will continue with current treatment plan will need to do a follow-up modified barium swallow due to patient's aspiration pneumonia scheduled for tomorrow. will attempt to get PT OT old patient can participate. Time Spent With Patient Time with patient: 15 - 25 minutes Subjective Date/time seen: 12/02/24 11:24 Interval history: 59 year old male with past medical history of HTN, CAD, CVA, CHF, and ESRD on dialysis presents to the hospital with complaint of a black left toe. 12/02/2024: Assuming Care Patient alert to self and able to tell me his name and D.O.B and that he pulled his IV out, reports he overall doesn't feel well. Plan for follow-up MBS tomorrow Review of Systems Review of Systems: 12 systems were reviewed and are negativ e except for as per HPI. All systems reviewed & are unremarkable except as noted in HPI and below Exam Narrative: General: NAD male lying in bed HEENT: Normocephalic. Chest: scattered wheezing in bilateral lower base crackles CV: RRR Abd: Abdomen was soft. Ext: LT foot with surgical dressing in place. Neuro: Patient remains AOx3 on assessment, slow to respond Psych: Flat affect Objective Data Vital Signs Vital Signs: Vital Signs - 24 hr 12/01/24 11:30 12/01/24 11:45 12/01/24 12:00 Temperature Pulse Rate 58 L 56 L 56 L Respiratory Rate Blood Pressure 131/87 150/73 H 156/68 H Pulse Oximetry Oxygen Delivery Oxygen Flow Rate 12/01/24 12:05 12/01/24 12:11 12/01/24 12:20 Temperature 97.8 F Pulse Rate 55 L 59 L 59 L Respiratory Rate 16 Blood Pressure 152/72 H 148/71 H Pulse Oximetry Oxygen Delivery Oxygen Flow Rate 12/01/24 13:15 12/01/24 13:35 12/01/24 13:45 Temperature Pulse Rate 60 79 66 Respiratory Rate 15 14 16 Blood Pressure 146/65 H 127/61 104/80 Pulse Oximetry 100 96 96 Oxygen Delivery Nasal Cannula Nasal Cannula Room Air Oxygen Flow Rate 2 2 12/01/24 14:00 12/01/24 14:15 12/01/24 16:05 Temperature Pulse Rate 67 66 Respiratory Rate 20 22 H Blood Pressure 138/70 138/66 Pulse Oximetry 95 Oxygen Delivery Room Air Room Air Oxygen Flow Rate 12/01/24 20:00 12/01/24 20:00 12/01/24 21:03 Temperature 98.3 F Pulse Rate 68 68 Respiratory Rate 18 Blood Pressure 145/75 H Pulse Oximetry 96 Oxygen Delivery Room Air Oxygen Flow Rate 12/02/24 00:00 12/02/24 04:00 12/02/24 08:05 Temperature Pulse Rate 66 66 61 Respiratory Rate Blood Pressure Pulse Oximetry Oxygen Delivery Oxygen Flow Rate 12/02/24 08:30 Temperature Pulse Rate Respiratory Rate Blood Pressure Pulse Oximetry Oxygen Delivery Room Air Oxygen Flow Rate Intake/Output Intake/Output: Intake & Output 11/29/24 11/30/24 12/01/24 12/02/24 23:59 23:59 23:59 23:59 Intake Total 376 1750 1350 200 Output Total 2600 6329 438 Kzfoziv -0946 1750 -650 -85 Meds/Results Medications: Active Medications Generic Name Dose Route Start Last Admin Trade Name Freq PRN Reason Stop Dose Admin Amlodipine Besylate 10 mg 11/27/24 09:00 11/30/24 08:30 Amlodipine Besylate 10 Mg Tablet PO 10 mg DAILY LILIAN Administration Atorvastatin Calcium 80 mg 11/27/24 09:00 12/01/24 11:36 Atorvastatin 40 Mg Tablet PO Not Given DAILY LILIAN Carvedilol 25 mg 11/26/24 21:00 11/30/24 08:29 Carvedilol 25 Mg Tablet PO 25 mg Q12HR LILIAN Administration Clopidogrel Bisulfate 75 mg 11/27/24 09:00 Clopidogrel Bisulfate 75 Mg Tablet PO DAILY LILIAN Dextrose 12.5 gm 11/30/24 16:34 Dextrose 50% 25 Gm/50 Ml Syringe IV PUSH PRN PRN Hypoglycemia Protocol Docusate Sodium 100 mg 11/26/24 17:00 11/30/24 17:21 Docusate Sodium 100 Mg Capsule PO Not Given BID LILIAN Glucagon 1 mg 11/30/24 16:34 Glucagon For Inj 1 Mg Vial IM PRN PRN Hypoglycemia Protocol Glucose 15 gm 11/30/24 16:34 Glucose Oral Gel 15 Gm Of Glucse In 37.5 Gm Tube PO PRN PRN Hypoglycemia Protocol Hydralazine HCl 50 mg 11/26/24 17:00 11/30/24 12:49 Hydralazine Hcl 50 Mg Tablet PO Not Given TID [facility] Hydralazine HCl 10 mg 11/30/24 17:13 Hydralazine Hcl 20 Mg/Ml Vial IV PUSH Q8H PRN SBP>180 Albumin Human 50 mls @ 999 mls/hr 11/27/24 06:51 Albutein IVPB 12/27/24 06:50 Q10M PRN HYPOTENSION Ibuprofen 800 mg in 200 mls @ 400 mls/hr 11/29/24 17:35 11/30/24 21:19 Caldolor 800 Mg/200 Ml IVPB Infused Q6H PRN Infusion Breakthrough Pain Rated 1-3 or NPO Cefepime HCl 1 gm in 50 mls @ 100 mls/hr 11/30/24 18:00 12/01/24 18:38 Maxipime 1 Gm/Ns 50 Ml IVPB Infused DAILY@1800 LILIAN Infusion Metronidazole 500 mg in 100 mls @ 100 mls/hr 11/30/24 14:00 12/02/24 06:06 Flagyl 500 Mg/Iso Soln 100 Ml IVPB Infused Q8H LILIAN Infusion Dextrose/Sodium Chloride 1,000 mls @ 80 mls/hr 11/30/24 16:35 12/01/24 17:47 Dextrose 5% Sodium Chloride 0.9% IV CONT 80 mls/hr .[id number] LILIAN Administration Dextrose 1,000 mls @ 100 mls/hr 11/30/24 16:34 Dextrose 5% 1,000 Ml IVPB PRN PRN Hypoglycemia Protocol Insulin Aspart 2 - 5 units 12/01/24 00:00 12/02/24 06:09 Insulin Aspart (*Bkc) 100 Units/Ml SUB-Q Not Given Q6HR [facility] Protocol Mupirocin 1 applic 11/28/24 09:00 12/01/24 21:06 Mupirocin 2% Oint 22 Gm Tube EACH NARE 12/02/24 21:01 1 applic Q12HR LILIAN Administration Naloxone HCl 0.1 mg 11/29/24 17:35 Naloxone Hcl 0.4 Mg/Ml Vial IV PUSH Q2M PRN Opiate Reversal Ondansetron HCl 4 mg 11/26/24 14:10 Ondansetron Inj 4 Mg/2 Ml Vial IV PUSH Q4H PRN Nausea Oxycodone/Acetaminophen 0.5 tablet 11/29/24 17:35 Oxycodone/Acetaminophen (*Crx) 5-325 Mg Tablet PO Q4H PRN Pain Rated 4-6 Polyethylene Glycol 17 gm 11/30/24 09:00 11/30/24 08:29 Polyethylene Glycol 3350 17 Gm Powd.Pack PO 17 gm QAM LILIAN Administration Senna/Docusate Sodium 2 tab 11/29/24 21:00 11/29/24 20:29 Senna/Docusate Sodium Tablet PO 2 tab HS LILIAN Administration Vancomycin HCl 1 each 11/26/24 13:16 Vancomycin For Hemodialysis IVPB PRN PRN Vancomycin Protocol Radiology Results: ITS Impressions Foot X-Ray 11/26/24 12:58 Impression: 1: Moderate soft tissue swelling of the second digit. The distal phalanx not well visualized. Cannot exclude osteomyelitis. 2: Extra-articular fracture left fifth proximal phalanx. Duplex Scan Lower Extremity Artery 11/26/24 13:53 IMPRESSION: 1. No evident hemodynamically significant stenosis either by follow-up elevation of peak systolic velocities or by direct visualization grayscale imaging with brisk systolic upstrokes arteries of the bilateral lower limbs. Head CT 11/30/24 12:22 IMPRESSION: 1. . 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 No acute intracranial process. 2. Age-related changes including mild diffuse volume loss and moderate scattered white matter hypoattenuation consistent with chronic small vessel ischemic disease. Chest X-Ray 11/30/24 12:37 IMPRESSION: 1. Opacities in the right mid and lower lung zones which could represent atelectasis, aspiration and/or pneumonia. 2. Small right pleural effusion. Modified Barium Swallow 11/30/24 13:31 IMPRESSION: Oropharyngeal dysphagia with laryngeal penetration and aspiration. Please correlate with speech pathologist findings and specific feeding recommendations. Labs Labs: Laboratory Results - last 24 hr 12/01/24 12/01/24 12/02/24 18:16 23:19 05:24 WBC 16.5 H RBC 3.11 L Hgb 9.0 L Hct 29.4 L MCV 94.5 MCH 28.9 MCHC 30.6 L RDW 14.7 H Plt Count 256 MPV 10.9 H Immature Gran % (Auto) 2.4 H Neut % (Auto) 81.9 H Lymph % (Auto) 5.9 L Coffee % (Auto) 7.5 Eos % (Auto) 2.0 Baso % (Auto) 0.3 Lymph # (Auto) 0.97 Coffee # (Auto) 1.2 H Eos # (Auto) 0.3 Baso # (Auto) 0.1 Abs Immat Gran (auto) 0.39 H Absolute Neuts (auto) 13.5 H Absolute Nucleated RBC 0.000 Nucleated RBC % 0.0 Sodium 140 Potassium 4.1 Chloride 105 Carbon Dioxide 25 Anion Gap 10 BUN 30 H D Creatinine 4.82 H Estim Creat Clear Calc 17 Estimated GFR 13 L Glucose 143 H POC Capillary Glucose 121 H 130 H Calcium 8.2 L Total Bilirubin 0.7 AST 28 ALT 53 H Alkaline Phosphatase 127 H Total Protein 6.7 Albumin 2.9 L 12/02/24 05:41 WBC RBC Hgb Hct MCV MCH MCHC RDW Plt Count MPV Immature Gran % (Auto) Neut % (Auto) Lymph % (Auto) Coffee % (Auto) Eos % (Auto) Baso % (Auto) Lymph # (Auto) Coffee # (Auto) Eos # (Auto) Baso # (Auto) Abs Immat Gran (auto) Absolute Neuts (auto) Absolute Nucleated RBC Nucleated RBC % Sodium Potassium Chloride Carbon Dioxide Anion Gap BUN Creatinine Estim Creat Clear Calc Estimated GFR Glucose POC Capillary Glucose 139 H Calcium Total Bilirubin AST ALT Alkaline Phosphatase Total Protein Albumin Quality VTE Prophylaxis VTE prophylaxis: mechanical ordered -Patient's previous records reviewed on admission -ER notes reviewed in detail on admission -discussed all findings and current treatment plan with patient/Family/POA -Consultations reviewed for recommendations -Patient's disposition for safe discharge discussed with case management coordinator Dictation performed by [employer] direct speech recognition software, therefore metal stamper variants and typographical errors may occur. Hospitalist MIPS Advance Care Plan I have confirmed that the patient's Advanced Care Plan is present, code status is documented, or surrogate decision maker is listed in patient medical record.: Yes Medication Reconciliation I have utilized all available resources to obtain, update and review the patients current medications (includes all prescriptions, OTC, herbals, cannabis, and nutritional supplements).: Yes The patient is not eligible for med reconciliation; the patient is in a emergent medical situation where delaying treatment would jeopardize the patients health.: No
[2024-12-02] MEDS: MUPIROCIN 2% OINT 22 GM TUBE 1 APPLIC EACH NARE ×2 (11:42→21:05)
[2024-12-02 12:15] LABS: Glucose Point of Care 131 mg/dl (65-105)
--- NOTE | 2024-12-02 13:50 | P.PNNP_ITS ---
Progress Note: A&P Assessment and Plan (1) End stage renal disease: Code(s): N18.6 - End stage renal disease Status: Chronic Assessment and Plan: * HD tomorrow * continue Fri/Fri/Friday dialysis schedule while hospitalized * follow electrolytes, volume status, and clearance * kidney disease due to biopsy proven diabetes and hypertension along with vascular disease (CVA + hyperlipemia) (2) Gangrene of toe of left foot: Code(s): I96 - Gangrene, not elsewhere classified Status: Acute Assessment and Plan: * as noted by clinical exam * Surgery recommendations noted * s/p open transmetatarsal amputation left 2nd toe (11/29) * on IV antibiotics (3) Cellulitis of left foot: Code(s): L03.116 - Cellulitis of left lower limb Status: Acute Assessment and Plan: * as noted on presentation * likely a complication of diabetes and #2 * on antibiotics (4) Bacteremia: Code(s): R78.81 - Bacteremia Status: Acute Assessment and Plan: * as noted: * blood cultures (11/26): MRSA * blood cultures (11/28): MRSA * blood cultures (12/01): Gram positive cocci cluster (1 set) * presumably related to #2 and #3 * results of KATLIN noted (12/01): * No evidence of infective endocarditis. The aortic valve is severely calcified with severe aortic stenosis with an ALBINO of 0.9cm2 by planimetry. * on antibiotics * follow culture data (5) Altered mental status: Code(s): R41.82 - Altered mental status, unspecified Status: Acute Assessment and Plan: * slow improvement noted * initially noted this on morning of 11/30 * testing/evaluation noted at that time: * ABG: pH 7.538, pCO2 35.8, pO2 53.2, HCO3 29.8 * lactic normal; procalcitonin elevated at 6.1; glucose okay * CT of brain: unchanged small old infarcts in the right frontal lobe, abdelrahman, right lentiform nucleus and left thalamus; no acute intracranial process; age-related changes including mild diffuse volume loss and moderate scattered white matter hypoattenuation consistent with chronic small vessel ischemic disease * CXR: Opacities in the right mid and lower lung zones which could represent atelectasis, aspiration and/or pneumonia; small right pleural effusion * limiting narcotics as tolerated * continue supportive therapy (6) Aspiration pneumonia: Code(s): J69.0 - Pneumonitis due to inhalation of food and vomit Status: Acute Assessment and Plan: * as suggested by CXR on 11/30 * on antibiotics * viral testing (COVID/RSV/influenza) negative * NPO as failed modified barium swallow * speech therapy following * may need alternative nutrition (doboff/PPN...etc) * follow respiratory status (7) Anemia: Code(s): D64.9 - Anemia, unspecified Status: Chronic Assessment and Plan: * due to ESRD with worsening due to acute illness/infection * follow trend of H/H * Epogen with HD (8) Heart failure with preserved ejection fraction: Qualifiers: Heart failure chronicity: unspecified Qualified Code(s): I50.30 - Unspecified diastolic (congestive) heart failure Code(s): I50.30 - Unspecified diastolic (congestive) heart failure Status: Chronic Assessment and Plan: * appears compensated * fluid removal with dialysis to maintain euvolemia * contineu supportive therapy (9) Hypertension: Qualifiers: Hypertension type: unspecified Qualified Code(s): I10 - Essential (primary) hypertension Code(s): I10 - Essential (primary) hypertension Status: Chronic Assessment and Plan: * reasonable control at this time * known history of poor control at baseline * follow trend of hemodynamics (10) Diabetes: Qualifiers: Diabetes mellitus type: 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 L Subjective Date/time seen: 12/02/24 13:50 Interval history: Follow-up for end stage renal disease on hemodialysis. Tolerated dialysis treatment yesterday without any issues or problems; major complaint is that he wants to drink water (but NPO due to ongoing concerns for aspiration based on speech evaluation/MBS); KATLIN done yesterday with results/findings noted; mentation seems stable if not back to baseline on my visit with him; noted plans for repeat MBS tomorrow to reassess safety of oral feeding. Exam 2 Narrative: General: WD/WN male in NAD Heart: normal S1 and S2; no rub Lungs: clear anteriorly Abdomen: soft, nontender, nondistended, positive bowel sounds Extremities: no cyanosis or clubbing; + edema left foot Skin: left foot dressings noted Objective Data Vital Signs Vital Signs: Vital Signs Temp Pulse Resp BP Pulse Ox O2 Del Method 12/02/24 13:00 98.0 F 86 16 130/80 98 12/02/24 12:05 61 12/02/24 08:30 Room Air 12/02/24 08:05 61 12/02/24 04:00 66 12/02/24 00:00 66 12/01/24 21:03 98.3 F 68 18 145/75 H 96 12/01/24 20:00 68 12/01/24 20:00 Room Air Intake/Output Intake/Output: Intake & Output 11/29/24 11/30/24 12/01/24 12/02/24 23:59 23:59 23:59 23:59 Intake Total 376 1750 1350 1350 Output Total 2600 9136 152 Ywwblqd -2224 1750 -650 815 Meds/Results Medications: Active Medications Generic Name Dose Route Start Last Admin Trade Name Freq PRN Reason Stop Dose Admin Amlodipine Besylate 10 mg 11/27/24 09:00 11/30/24 08:30 Amlodipine Besylate 10 Mg Tablet PO 10 mg DAILY LILIAN Administration Atorvastatin Calcium 80 mg 11/27/24 09:00 12/01/24 11:36 Atorvastatin 40 Mg Tablet PO Not Given DAILY LILIAN Carvedilol 25 mg 11/26/24 21:00 11/30/24 08:29 Carvedilol 25 Mg Tablet PO 25 mg Q12HR LILIAN Administration Clopidogrel Bisulfate 75 mg 11/27/24 09:00 Clopidogrel Bisulfate 75 Mg Tablet PO DAILY LILIAN Dextrose 12.5 gm 11/30/24 16:34 Dextrose 50% 25 Gm/50 Ml Syringe IV PUSH PRN PRN Hypoglycemia Protocol Docusate Sodium 100 mg 11/26/24 17:00 11/30/24 17:21 Docusate Sodium 100 Mg Capsule PO Not Given BID LILIAN Glucagon 1 mg 11/30/24 16:34 Glucagon For Inj 1 Mg Vial IM PRN PRN Hypoglycemia Protocol Glucose 15 gm 11/30/24 16:34 Glucose Oral Gel 15 Gm Of Glucse In 37.5 Gm Tube PO PRN PRN Hypoglycemia Protocol Hydralazine HCl 50 mg 11/26/24 17:00 11/30/24 12:49 Hydralazine Hcl 50 Mg Tablet PO Not Given TID LILIAN Hydralazine HCl 10 mg 11/30/24 17:13 Hydralazine Hcl 20 Mg/Ml Vial IV PUSH Q8H PRN SBP>180 Albumin Human 50 mls @ 999 mls/hr 11/27/24 06:51 Albutein IVPB 12/27/24 06:50 Q10M PRN HYPOTENSION Ibuprofen 800 mg in 200 mls @ 400 mls/hr 11/29/24 17:35 11/30/24 21:19 Caldolor 800 Mg/200 Ml IVPB Infused Q6H PRN Infusion Breakthrough Pain Rated 1-3 or NPO Cefepime HCl 1 gm in 50 mls @ 100 mls/hr 11/30/24 18:00 12/02/24 18:00 Maxipime 1 Gm/Ns 50 Ml IVPB Infused DAILY@1800 LILIAN Infusion Metronidazole 500 mg in 100 mls @ 100 mls/hr 11/30/24 14:00 12/02/24 16:10 Flagyl 500 Mg/Iso Soln 100 Ml IVPB Infused Q8H LILIAN Infusion Dextrose/Sodium Chloride 1,000 mls @ 80 mls/hr 11/30/24 16:35 12/02/24 14:57 Dextrose 5% Sodium Chloride 0.9% IV CONT 80 mls/hr .[id number] LILIAN Administration Dextrose 1,000 mls @ 100 mls/hr 11/30/24 16:34 Dextrose 5% 1,000 Ml IVPB PRN PRN Hypoglycemia Protocol Insulin Aspart 2 - 5 units 12/01/24 00:00 12/02/24 18:57 Insulin Aspart (*Bkc) 100 Units/Ml SUB-Q Not Given Q6HR LILIAN Protocol Mupirocin 1 applic 11/28/24 09:00 12/02/24 11:42 Mupirocin 2% Oint 22 Gm Tube EACH NARE 12/02/24 21:01 1 applic Q12HR LILIAN Administration Naloxone HCl 0.1 mg 11/29/24 17:35 Naloxone Hcl 0.4 Mg/Ml Vial IV PUSH Q2M PRN Opiate Reversal Ondansetron HCl 4 mg 11/26/24 14:10 Ondansetron Inj 4 Mg/2 Ml Vial IV PUSH Q4H PRN Nausea Oxycodone/Acetaminophen 0.5 tablet 11/29/24 17:35 Oxycodone/Acetaminophen (*Crx) 5-325 Mg Tablet PO Q4H PRN Pain Rated 4-6 Pantoprazole Sodium 40 mg 12/02/24 12:00 12/02/24 13:53 Pantoprazole 40 Mg Tablet PO Not Given QAM LILIAN Polyethylene Glycol 17 gm 11/30/24 09:00 11/30/24 08:29 Polyethylene Glycol 3350 17 Gm Powd.Pack PO 17 gm QAM LILIAN Administration Senna/Docusate Sodium 2 tab 11/29/24 21:00 11/29/24 20:29 Senna/Docusate Sodium Tablet PO 2 tab HS LILIAN Administration Vancomycin HCl 1 each 11/26/24 13:16 Vancomycin For Hemodialysis IVPB PRN PRN Vancomycin Protocol Radiology Results: ITS Impressions Foot X-Ray 11/26/24 12:58 Impression: 1: Moderate soft tissue swelling of the second digit. The distal phalanx not well visualized. Cannot exclude osteomyelitis. 2: Extra-articular fracture left fifth proximal phalanx. Duplex Scan Lower Extremity Artery 11/26/24 13:53 IMPRESSION: 1. No evident hemodynamically significant stenosis either by follow-up elevation of peak systolic velocities or by direct visualization grayscale imaging with brisk systolic upstrokes arteries of the bilateral lower limbs. Head CT 11/30/24 12:22 IMPRESSION: 1. . 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 No acute intracranial process. 2. Age-related changes including mild diffuse volume loss and moderate scattered white matter hypoattenuation consistent with chronic small vessel ischemic disease. Chest X-Ray 11/30/24 12:37 IMPRESSION: 1. Opacities in the right mid and lower lung zones which could represent atelectasis, aspiration and/or pneumonia. 2. Small right pleural effusion. Modified Barium Swallow 11/30/24 13:31 IMPRESSION: Oropharyngeal dysphagia with laryngeal penetration and aspiration. Please correlate with speech pathologist findings and specific feeding recommendations. Labs Labs: Laboratory Tests 12/02/24 05:24 12/02/24 05:24 Calcium 8.2 L Total Bilirubin 0.7 AST 28 ALT 53 H Alkaline Phosphatase 127 H Total Protein 6.7 Albumin 2.9 L Microbiology 12/01/24 01:10 Blood Blood Culture - Preliminary Gram positive cocci cluster is 11/26/24 13:39 Foot - Unspecified Anaerobic Culture - Final 11/26/24 13:39 Foot - Unspecified Aerobic Culture - Final Methicillin Resis Staph Aureus 11/28/24 11:10 Blood Blood Culture - Preliminary Staphylococcus aureus 11/28/24 11:17 Blood Blood Culture - Preliminary Methicillin Resis Staph Aureus 11/29/24 16:06 Foot Left Anaerobic Culture - Preliminary 11/29/24 16:06 Foot Left Aerobic Culture - Final Methicillin Resis Staph Aureus 12/01/24 01:10 Blood Blood Culture - Preliminary
[2024-12-02] MEDS: DEXTROSE 5%/0.9% SOD CHL 1,000 ML 80 ML IV CONT (14:57)
--- NOTE | 2024-12-02 14:59 | P.PNGS_ITS ---
Progress Note: A&P Assessment and Plan (1) Gangrene of toe of left foot: Code(s): I96 - Gangrene, not elsewhere classified Status: Acute Assessment and Plan: * Wound appears clean with no purulent drainage or necrotic tissue. WBC trending up to 16,500 with more of a left shift. His wound looks clean, but with his tenderness on exam and worsening leukocytosis, we will order an MRI of the left foot to further evaluate. Continue daily dressing changes with silver gel and 1 iodoform gauze packing. Continue broad-spectrum IV antibiotics. Cultures growing MRSA with sensitivity to Vancomycin. (2) Necrotizing soft tissue infection: Code(s): M79.89 - Other specified soft tissue disorders Status: Acute (3) MRSA bacteremia: Code(s): R78.81 - Bacteremia; B95.62 - Methicillin resistant Staphylococcus aureus infection as the cause of diseases classified elsewhere Status: Acute Assessment and Plan: * Blood cx + for MRSA on 11/26 and 11/28, repeat cx on 12/01 NGTD. KATLIN with no e vidence of infective endocarditis, but findings of severe aortic stenosis. (4) Chronic kidney disease (CKD), stage V: Code(s): N18.5 - Chronic kidney disease, stage 5 Status: Chronic Assessment and Plan: * Nephrology following. Patient dialyzed yesterday. (5) Diabetic infection of left foot: Code(s): E11.628 - Type 2 diabetes mellitus with other skin complications; L08.9 - Local infection of the skin and subcutaneous tissue, unspecified Status: Acute (6) Antiplatelet or antithrombotic long-term use: Code(s): Z79.02 - MCFP (current) use of antithrombotics/antiplatelets Status: Chronic Assessment and Plan: * Plavix resumed by Hospitalist today Plan I have discussed the patient's case and plan of care with Dr. Goodson. Subjective Subjective Date/Time Seen: 12/02/24 14:59 Post Op day: 3 (open transmetatarsal amputation left 2nd toe) Patient reports: afebrile Interval history: Patient seen with Dr. Goodson for dressing change. He is alert and oriented but does have some confusion when asking questions. He reports having pain in his left foot and ankle. Exam Const: General: comfortable and ill appearing Extrem: Other: Left 2nd toe transmetatarsal amputation with an open wound that has some granulation tissue forming, no necrotic tissue or purulent drainage. There is some dusky skin on the medial and lateral side, that is unchanged, no blackened areas. The skin on the lateral foot is less erythematous but slightly darker in color. There is some mild erythema at the lateral ankle. Tenderness of both the medial ankle and diffusely across his foot Objective Data Vital Signs Vital Signs: Vital Signs - 24 hr 12/01/24 16:05 12/01/24 20:00 12/01/24 20:00 Temperature Pulse Rate 66 68 Respiratory Rate Blood Pressure Pulse Oximetry Oxygen Delivery Room Air 12/01/24 21:03 12/02/24 00:00 12/02/24 04:00 Temperature 98.3 F Pulse Rate 68 66 66 Respiratory Rate 18 Blood Pressure 145/75 H Pulse Oximetry 96 Oxygen Delivery 12/02/24 08:05 12/02/24 08:30 12/02/24 12:05 Temperature Pulse Rate 61 61 Respiratory Rate Blood Pressure Pulse Oximetry Oxygen Delivery Room Air 12/02/24 14:00 Temperature 98.0 F Pulse Rate 86 Respiratory Rate 16 Blood Pressure 130/80 Pulse Oximetry 98 Oxygen Delivery Intake/Output Intake/Output: Intake & Output 11/29/24 11/30/24 12/01/24 12/02/24 23:59 23:59 23:59 23:59 Intake Total 376 1750 1350 200 Output Total 2600 0598 515 Iudrxye -7249 1750 -650 -85 Meds/Results Medications: Active Medications Generic Name Dose Route Start Last Admin Trade Name Freq PRN Reason Stop Dose Admin Amlodipine Besylate 10 mg 11/27/24 09:00 11/30/24 08:30 Amlodipine Besylate 10 Mg Tablet PO 10 mg DAILY LILIAN Administration Atorvastatin Calcium 80 mg 11/27/24 09:00 12/01/24 11:36 Atorvastatin 40 Mg Tablet PO Not Given DAILY LILIAN Carvedilol 25 mg 11/26/24 21:00 11/30/24 08:29 Carvedilol 25 Mg Tablet PO 25 mg Q12HR LILIAN Administration Clopidogrel Bisulfate 75 mg 11/27/24 09:00 Clopidogrel Bisulfate 75 Mg Tablet PO DAILY LILIAN Dextrose 12.5 gm 11/30/24 16:34 Dextrose 50% 25 Gm/50 Ml Syringe IV PUSH PRN PRN Hypoglycemia Protocol Docusate Sodium 100 mg 11/26/24 17:00 11/30/24 17:21 Docusate Sodium 100 Mg Capsule PO Not Given BID LILIAN Glucagon 1 mg 11/30/24 16:34 Glucagon For Inj 1 Mg Vial IM PRN PRN Hypoglycemia Protocol Glucose 15 gm 11/30/24 16:34 Glucose Oral Gel 15 Gm Of Glucse In 37.5 Gm Tube PO PRN PRN Hypoglycemia Protocol Hydralazine HCl 50 mg 11/26/24 17:00 11/30/24 12:49 Hydralazine Hcl 50 Mg Tablet PO Not Given TID [facility] Hydralazine HCl 10 mg 11/30/24 17:13 Hydralazine Hcl 20 Mg/Ml Vial IV PUSH Q8H PRN SBP>180 Albumin Human 50 mls @ 999 mls/hr 11/27/24 06:51 Albutein IVPB 12/27/24 06:50 Q10M PRN HYPOTENSION Ibuprofen 800 mg in 200 mls @ 400 mls/hr 11/29/24 17:35 11/30/24 21:19 Caldolor 800 Mg/200 Ml IVPB Infused Q6H PRN Infusion Breakthrough Pain Rated 1-3 or NPO Cefepime HCl 1 gm in 50 mls @ 100 mls/hr 11/30/24 18:00 12/01/24 18:38 Maxipime 1 Gm/Ns 50 Ml IVPB Infused DAILY@1800 LILIAN Infusion Metronidazole 500 mg in 100 mls @ 100 mls/hr 11/30/24 14:00 12/02/24 06:06 Flagyl 500 Mg/Iso Soln 100 Ml IVPB Infused Q8H LILIAN Infusion Dextrose/Sodium Chloride 1,000 mls @ 80 mls/hr 11/30/24 16:35 12/01/24 17:47 Dextrose 5% Sodium Chloride 0.9% IV CONT 80 mls/hr .[id number] LILIAN Administration Dextrose 1,000 mls @ 100 mls/hr 11/30/24 16:34 Dextrose 5% 1,000 Ml IVPB PRN PRN Hypoglycemia Protocol Insulin Aspart 2 - 5 units 12/01/24 00:00 12/02/24 13:52 Insulin Aspart (*Bkc) 100 Units/Ml SUB-Q Not Given Q6HR [facility] Protocol Mupirocin 1 applic 11/28/24 09:00 12/02/24 11:42 Mupirocin 2% Oint 22 Gm Tube EACH NARE 12/02/24 21:01 1 applic Q12HR LILIAN Administration Naloxone HCl 0.1 mg 11/29/24 17:35 Naloxone Hcl 0.4 Mg/Ml Vial IV PUSH Q2M PRN Opiate Reversal Ondansetron HCl 4 mg 11/26/24 14:10 Ondansetron Inj 4 Mg/2 Ml Vial IV PUSH Q4H PRN Nausea Oxycodone/Acetaminophen 0.5 tablet 11/29/24 17:35 Oxycodone/Acetaminophen (*Crx) 5-325 Mg Tablet PO Q4H PRN Pain Rated 4-6 Pantoprazole Sodium 40 mg 12/02/24 12:00 12/02/24 13:53 Pantoprazole 40 Mg Tablet PO Not Given QAM LILIAN Polyethylene Glycol 17 gm 11/30/24 09:00 11/30/24 08:29 Polyethylene Glycol 3350 17 Gm Powd.Pack PO 17 gm QAM LILIAN Administration Senna/Docusate Sodium 2 tab 11/29/24 21:00 11/29/24 20:29 Senna/Docusate Sodium Tablet PO 2 tab HS LILIAN Administration Vancomycin HCl 1 each 11/26/24 13:16 Vancomycin For Hemodialysis IVPB PRN PRN Vancomycin Protocol Radiology Results: ITS Impressions Foot X-Ray 11/26/24 12:58 Impression: 1: Moderate soft tissue swelling of the second digit. The distal phalanx not well visualized. Cannot exclude osteomyelitis. 2: Extra-articular fracture left fifth proximal phalanx. Duplex Scan Lower Extremity Artery 11/26/24 13:53 IMPRESSION: 1. No evident hemodynamically significant stenosis either by follow-up elevation of peak systolic velocities or by direct visualization grayscale imaging with brisk systolic upstrokes arteries of the bilateral lower limbs. Head CT 11/30/24 12:22 IMPRESSION: 1. . 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 No acute intracranial process. 2. Age-related changes including mild diffuse volume loss and moderate scattered white matter hypoattenuation consistent with chronic small vessel ischemic disease. Chest X-Ray 11/30/24 12:37 IMPRESSION: 1. Opacities in the right mid and lower lung zones which could represent atelectasis, aspiration and/or pneumonia. 2. Small right pleural effusion. Modified Barium Swallow 11/30/24 13:31 IMPRESSION: Oropharyngeal dysphagia with laryngeal penetration and aspiration. Please correlate with speech pathologist findings and specific feeding recommendations. Labs Labs: Laboratory Results - last 24 hr 12/01/24 12/01/24 12/02/24 18:16 23:19 05:24 WBC 16.5 H RBC 3.11 L Hgb 9.0 L Hct 29.4 L MCV 94.5 MCH 28.9 MCHC 30.6 L RDW 14.7 H Plt Count 256 MPV 10.9 H Immature Gran % (Auto) 2.4 H Neut % (Auto) 81.9 H Lymph % (Auto) 5.9 L [place] % (Auto) 7.5 Eos % (Auto) 2.0 Baso % (Auto) 0.3 Lymph # (Auto) 0.97 [place] # (Auto) 1.2 H Eos # (Auto) 0.3 Baso # (Auto) 0.1 Abs Immat Gran (auto) 0.39 H Absolute Neuts (auto) 13.5 H Absolute Nucleated RBC 0.000 Nucleated RBC % 0.0 Sodium 140 Potassium 4.1 Chloride 105 Carbon Dioxide 25 Anion Gap 10 BUN 30 H D Creatinine 4.82 H Estim Creat Clear Calc 17 Estimated GFR 13 L Glucose 143 H POC Capillary Glucose 121 H 130 H Calcium 8.2 L Total Bilirubin 0.7 AST 28 ALT 53 H Alkaline Phosphatase 127 H Total Protein 6.7 Albumin 2.9 L 12/02/24 12/02/24 05:41 12:13 WBC RBC Hgb Hct MCV MCH MCHC RDW Plt Count MPV Immature Gran % (Auto) Neut % (Auto) Lymph % (Auto) [place] % (Auto) Eos % (Auto) Baso % (Auto) Lymph # (Auto) [place] # (Auto) Eos # (Auto) Baso # (Auto) Abs Immat Gran (auto) Absolute Neuts (auto) Absolute Nucleated RBC Nucleated RBC % Sodium Potassium Chloride Carbon Dioxide Anion Gap BUN Creatinine Estim Creat Clear Calc Estimated GFR Glucose POC Capillary Glucose 139 H 131 H Calcium Total Bilirubin AST ALT Alkaline Phosphatase Total Protein Albumin
[2024-12-02] MEDS: CEFEPIME 1 GM/NS 50 ML 1 GM/50 ML BAG IVPB (17:13)
[2024-12-02 17:56] LABS: Glucose Point of Care 123 mg/dl (65-105)
[2024-12-03] VITALS (24 sets, daily range): BP systolic 154–191; BP diastolic 72–92; PULSE 63–73; RESP 16–24; TEMP 36.4–37; O2SAT 95–98; BMI 26.7
[2024-12-03 00:36] LABS: Glucose Point of Care 140 mg/dl (65-105)
[2024-12-03] MEDS: metroNIDAZOLE 500 MG/ISO 100ML 500 MG/100 ML BAG 100 MG IVPB ×3 (05:26→22:36)
[2024-12-03] MEDS: DEXTROSE 5%/0.9% SOD CHL 1,000 ML 80 ML IV CONT ×3 (05:28→12:43)
[2024-12-03 05:52] LABS: Basophils Absolute Auto 0.1 K/mm3 (0.0-0.1); Basophils Percent Auto 0.3 % (0.2-1.2); Eosinophils Absolute Auto 0.3 K/mm3 (0-0.3); Eosinophils Percent Auto 1.7 % (0-4.4); Hematocrit 29.1 % (42.0-52.0); Hemoglobin 8.9 g/dL (14.0-18.0); Immature Granulocyte Absolute 0.33 K/mm3 (0.00-0.031); Immature Granulocyte Percent A 2.1 % (0-0.5); Lymphocytes Absolute Auto 0.76 K/mm3 (0.9-3.2); Lymphocytes Percent Auto 4.8 % (18.3-44.2); Mean Corpuscular HGB Conc 30.6 g/dl (32-36); Mean Corpuscular Hemoglobin 29.3 pg (26-34); Mean Corpuscular Volume 95.7 fl (80-100); Monocytes Absolute Auto 1.1 K/mm3 (0.1-0.6); Monocytes Percent Auto 6.8 % (2.6-8.5); Neutrophils Absolute Auto 13.5 K/mm3 (1.3-6.7); Neutrophils Percent Auto 84.3 % (45.5-73.1); Platelet Count Result 264 k/mm3 (150-375); Red Blood Count 3.04 M/mm3 (4.6-6.20); Red Cell Distribution Width 14.7 % (11.5-14.5)
[2024-12-03 06:46] LABS: Alanine Aminotransferase 39 U/L (6-50); Albumin Level 2.9 g/dL (3.5-5.1); Alkaline Phosphatase 120 U/L (38-126); Anion Gap 11 mmol/L (4-12); Aspartate Amino Transferase 25 U/L (17-59); Bilirubin,Total 0.9 mg/dL (0.2-1.3); Blood Urea Nitrogen 42 mg/dL (9-20); Calcium 7.9 mg/dL (8.4-10.2); Carbon Dioxide 22 mmol/L (22-30); Chloride 108 mmol/L (98-107); Estimated CRCL calculation 13 ml/min; Estimated Glomerular Filt Rate 9; Glucose 146 mg/dL (65-110); Sodium 141 mmol/L (137-145); Total Protein 6.5 g/dL (6.3-8.2)
[2024-12-03 07:10] LABS: Vancomycin Trough 18.9 ug/mL (10.0-20.0)
[2024-12-03 11:42] LABS: Glucose Point of Care 170 mg/dl (65-105)
--- NOTE | 2024-12-03 12:18 | PCSTNOTE ---
Please refer to the Modified Barium Swallow (MBS)Evaluation in the EMR. The pt was seen for a repeat MBS to determine possibility of returning to oral intake. The pt answers questions appropriately but has a flat affect. The pt was seated for a lateral view and presented with 5 ml thin liquids, pudding consistency barium in controlled amounts via a spoon cracker coated with barium pudding via a spoon, and 5 ml of mildly and moderately thick liquids via a spoon. The oral stages were within functional limits; but during the pharyngeal stage, the pt presented with reduced tongue base retraction as evidenced by vallecular residue (ranged from trace to mod) across trials, reduced laryngeal elevation as evidenced by laryngeal penetration during the swallow with thin liquids, mildly thick liquids and pudding consistency; and reduced laryngeal closure as evidenced by aspiration during the swallow of thin liquid & mildly thick liquids. Coating on the backside of the epiglottis was also consistently exhibited across all trials posing an aspiration risk. Aspiration was essentially silent; pt was verbally cued to cough and dry swallow but he was not able to clear the aspiration. Impressions: Severe dysphagia Recommendation: start non oral feeding and conversations with pt and/or family re the potential need for more permanent means of nonoral nutrition. ST will initiate dysphagia therapy but due to the severity of his dysphagia it is doubtful he will return to oral intake during this admission. REC SNF
[2024-12-03 13:15] LABS: Partial Thromboplastin Time 36.3 Seconds (22.3-36.8)
[2024-12-03 13:55] LABS: Transferrin < 80 mg/dL (206-381)
--- NOTE | 2024-12-03 14:46 | P.PNNP_ITS ---
Progress Note: A&P Assessment and Plan (1) End stage renal disease: Code(s): N18.6 - End stage renal disease Status: Chronic Assessment and Plan: * HD tomorrow * continue Fri/Fri/Friday dialysis schedule while hospitalized * follow electrolytes, volume status, and clearance * kidney disease due to biopsy proven diabetes and hypertension along with vascular disease (CVA + hyperlipemia) (2) Gangrene of toe of left foot: Code(s): I96 - Gangrene, not elsewhere classified Status: Acute Assessment and Plan: * as noted by clinical exam * Surgery recommendations noted * s/p open transmetatarsal amputation left 2nd toe (11/29) * on IV antibiotics (3) Cellulitis of left foot: Code(s): L03.116 - Cellulitis of left lower limb Status: Acute Assessment and Plan: * as noted on presentation * likely a complication of diabetes and #2 * on antibiotics (4) Bacteremia: Code(s): R78.81 - Bacteremia Status: Acute Assessment and Plan: * as noted: * blood cultures (11/26): MRSA * blood cultures (11/28): MRSA * blood cultures (12/01): MRSA (1 out of 2 sets) * presumably related to #2 and #3 * results of KATLIN noted (12/01): * No evidence of infective endocarditis. The aortic valve is severely calcified with severe aortic stenosis with an ALBINO of 0.9cm2 by planimetry. * on antibiotics * noted plan for MRI of left foot * follow culture data (5) Altered mental status: Code(s): R41.82 - Altered mental status, unspecified Status: Acute Assessment and Plan: * slow improvement noted (if not back to baseline) * initially noted this on morning of 11/30 * testing/evaluation noted at that time: * ABG: pH 7.538, pCO2 35.8, pO2 53.2, HCO3 29.8 * lactic normal; procalcitonin elevated at 6.1; glucose okay * CT of brain: unchanged small old infarcts in the right frontal lobe, abdelrahman, right lentiform nucleus and left thalamus; no acute intracranial process; age-related changes including mild diffuse volume loss and moderate scattered white matter hypoattenuation consistent with chronic small vessel ischemic disease * CXR: Opacities in the right mid and lower lung zones which could represent atelectasis, aspiration and/or pneumonia; small right pleural effusion * limiting narcotics as tolerated * continue supportive therapy (6) Aspiration pneumonia: Code(s): J69.0 - Pneumonitis due to inhalation of food and vomit Status: Acute Assessment and Plan: * as suggested by CXR on 11/30 * on antibiotics * viral testing (COVID/RSV/influenza) negative * NPO as failed modified barium swallow * speech therapy following * may need alternative nutrition (doboff/PPN...etc) * follow respiratory status (7) Anemia: Code(s): D64.9 - Anemia, unspecified Status: Chronic Assessment and Plan: * due to ESRD with worsening due to acute illness/infection * follow trend of H/H * Epogen with HD (8) Heart failure with preserved ejection fraction: Qualifiers: Heart failure chronicity: unspecified Qualified Code(s): I50.30 - Unspecified diastolic (congestive) heart failure Code(s): I50.30 - Unspecified diastolic (congestive) heart failure Status: Chronic Assessment and Plan: * appears compensated * fluid removal with dialysis to maintain euvolemia * contineu supportive therapy (9) Hypertension: Qualifiers: Hypertension type: unspecified Qualified Code(s): I10 - Essential (primary) hypertension Code(s): I10 - Essential (primary) hypertension Status: Chronic Assessment and Plan: * reasonable control at this time * known history of poor control at baseline * follow trend of hemodynamics (10) Diabetes: Qualifiers: Diabetes mellitus type: type 2 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 L Subjective Date/time seen: 12/03/24 14:46 Interval history: Follow-up for end stage renal disease on hemodialysis. Tolerating dialysis at the time of my visit (seen on HD at 2:35PM); failed repeat modified barium swallow test earlier today so will be started on PPN; mentation seems at baseline with his usual flat affect; no other acute complaints noted; bacteremia persists as noted by repeat blood cultures. Exam 2 Narrative: General: WD/WN male in NAD Heart: normal S1 and S2; no rub Lungs: clear anteriorly Abdomen: soft, nontender, nondistended, positive bowel sounds Extremities: no cyanosis or clubbing; + edema left foot Skin: left foot erythema around operative site noted Objective Data Vital Signs Vital Signs: Vital Signs Temp Pulse Resp BP Pulse Ox O2 Del Method 12/03/24 14:45 65 172/86 H 12/03/24 14:30 66 172/84 H 12/03/24 14:22 68 169/83 H 12/03/24 14:08 97.7 F 67 24 H 174/82 H 98 12/03/24 12:00 66 12/03/24 08:00 Room Air 12/03/24 08:00 64 12/03/24 04:51 98 F 68 18 154/83 H 98 12/03/24 04:00 65 12/03/24 00:00 63 12/02/24 21:40 98.1 F 64 16 153/71 H 97 12/02/24 20:00 75 12/02/24 20:00 Room Air Intake/Output Intake/Output: Intake & Output 11/30/24 12/01/24 12/02/24 12/03/24 23:59 23:59 23:59 23:59 Intake Total 1750 1350 1450 1680.0 Output Total 2000 535 2000 Balance 1750 -650 915 -320.0 Meds/Results Medications: Active Medications Generic Name Dose Route Start Last Admin Trade Name Rikq PRN Reason Stop Dose Admin Amlodipine Besylate 10 mg 11/27/24 09:00 11/30/24 08:30 Amlodipine Besylate 10 Mg Tablet PO 10 mg DAILY LILIAN Administration Atorvastatin Calcium 80 mg 11/27/24 09:00 12/01/24 11:36 Atorvastatin 40 Mg Tablet PO Not Given DAILY LILIAN Carvedilol 25 mg 11/26/24 21:00 11/30/24 08:29 Carvedilol 25 Mg Tablet PO 25 mg Q12HR LILIAN Administration Clopidogrel Bisulfate 75 mg 11/27/24 09:00 12/03/24 10:50 Clopidogrel Bisulfate 75 Mg Tablet PO Not Given DAILY LILIAN Collagenase 1 applic 12/03/24 21:00 Collagenase Oint 30 Gm Tube TOPICAL Q12HR [facility] Dextrose 12.5 gm 11/30/24 16:34 Dextrose 50% 25 Gm/50 Ml Syringe IV PUSH PRN PRN Hypoglycemia Protocol Docusate Sodium 100 mg 11/26/24 17:00 11/30/24 17:21 Docusate Sodium 100 Mg Capsule PO Not Given BID LILIAN Glucagon 1 mg 11/30/24 16:34 Glucagon For Inj 1 Mg Vial IM PRN PRN Hypoglycemia Protocol Glucose 15 gm 11/30/24 16:34 Glucose Oral Gel 15 Gm Of Glucse In 37.5 Gm Tube PO PRN PRN Hypoglycemia Protocol Hydralazine HCl 50 mg 11/26/24 17:00 11/30/24 12:49 Hydralazine Hcl 50 Mg Tablet PO Not Given TID [facility] Hydralazine HCl 10 mg 11/30/24 17:13 Hydralazine Hcl 20 Mg/Ml Vial IV PUSH Q8H PRN SBP>180 Albumin Human 50 mls @ 999 mls/hr 11/27/24 06:51 Albutein IVPB 12/27/24 06:50 Q10M PRN HYPOTENSION Ibuprofen 800 mg in 200 mls @ 400 mls/hr 11/29/24 17:35 11/30/24 21:19 Caldolor 800 Mg/200 Ml IVPB Infused Q6H PRN Infusion Breakthrough Pain Rated 1-3 or NPO Cefepime HCl 1 gm in 50 mls @ 100 mls/hr 11/30/24 18:00 12/03/24 18:00 Maxipime 1 Gm/Ns 50 Ml IVPB 100 mls/hr DAILY@1800 LILIAN Administration Metronidazole 500 mg in 100 mls @ 100 mls/hr 11/30/24 14:00 12/03/24 12:42 Flagyl 500 Mg/Iso Soln 100 Ml IVPB 100 mls/hr Q8H LILIAN Administration Dextrose 1,000 mls @ 100 mls/hr 11/30/24 16:34 Dextrose 5% 1,000 Ml IVPB PRN PRN Hypoglycemia Protocol Vancomycin HCl 750 mg in 250 mls @ 250 mls/hr 12/03/24 18:00 12/03/24 18:03 Vancomycin 750 Mg/Ns 250 Ml IVPB 12/03/24 18:59 250 mls/hr ONCE ONE Administration Dextrose 1,000 mls @ 50 mls/hr 12/03/24 12:25 Dextrose 10% IV CONT .Q20H PRN if PN is interrupted Fat Emulsion Intravenous 250 mls @ 20.833 mls/hr 12/03/24 15:00 Lipids 20% IVPB Q24H [facility] Amino Acids/Electrolytes/Dextrose 1,000 mls @ 80 mls/hr 12/03/24 15:00 Clinimix E 4.25%/5% Solution IV CONT .[id number] [facility] Protocol Insulin Aspart 2 - 5 units 12/01/24 00:00 12/03/24 18:03 Insulin Aspart (*Bkc) 100 Units/Ml SUB-Q Not Given Q6HR [facility] Protocol Naloxone HCl 0.1 mg 11/29/24 17:35 Naloxone Hcl 0.4 Mg/Ml Vial IV PUSH Q2M PRN Opiate Reversal Ondansetron HCl 4 mg 11/26/24 14:10 Ondansetron Inj 4 Mg/2 Ml Vial IV PUSH Q4H PRN Nausea Oxycodone/Acetaminophen 0.5 tablet 11/29/24 17:35 Oxycodone/Acetaminophen (*Crx) 5-325 Mg Tablet PO Q4H PRN Pain Rated 4-6 Pantoprazole Sodium 40 mg 12/02/24 12:00 12/03/24 10:50 Pantoprazole 40 Mg Tablet PO Not Given QAM LILIAN Polyethylene Glycol 17 gm 11/30/24 09:00 11/30/24 08:29 Polyethylene Glycol 3350 17 Gm Powd.Pack PO 17 gm QAM LILIAN Administration Senna/Docusate Sodium 2 tab 11/29/24 21:00 11/29/24 20:29 Senna/Docusate Sodium Tablet PO 2 tab HS LILIAN Administration Vancomycin HCl 1 each 11/26/24 13:16 Vancomycin For Hemodialysis IVPB PRN PRN Vancomycin Protocol Radiology Results: ITS Impressions Foot X-Ray 11/26/24 12:58 Impression: 1: Moderate soft tissue swelling of the second digit. The distal phalanx not well visualized. Cannot exclude osteomyelitis. 2: Extra-articular fracture left fifth proximal phalanx. Duplex Scan Lower Extremity Artery 11/26/24 13:53 IMPRESSION: 1. No evident hemodynamically significant stenosis either by follow-up elevation of peak systolic velocities or by direct visualization grayscale imaging with brisk systolic upstrokes arteries of the bilateral lower limbs. Head CT 11/30/24 12:22 IMPRESSION: 1. . 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 No acute intracranial process. 2. Age-related changes including mild diffuse volume loss and moderate scattered white matter hypoattenuation consistent with chronic small vessel ischemic disease. Chest X-Ray 11/30/24 12:37 IMPRESSION: 1. Opacities in the right mid and lower lung zones which could represent atelectasis, aspiration and/or pneumonia. 2. Small right pleural effusion. Modified Barium Swallow 12/03/24 12:12 IMPRESSION: Pharyngeal dysphagia with laryngeal penetration and aspiration. Please correlate with speech pathologist findings and specific feeding recommendations. Labs Labs: Laboratory Tests 12/03/24 05:36 12/03/24 05:36 Calcium 7.9 L Total Bilirubin 0.9 AST 25 ALT 39 Alkaline Phosphatase 120 Total Protein 6.5 Albumin 2.9 L Vancomycin Trough 18.9 Microbiology 12/01/24 01:10 Blood Blood Culture - Preliminary Staphylococcus aureus 12/02/24 05:24 Blood Blood Culture - Preliminary 12/02/24 05:24 Blood Blood Culture - Preliminary
--- NOTE | 2024-12-03 15:17 | P.PNIM_ITS ---
Progress Note: A&P Assessment and Plan (1) Bacteremia: Code(s): R78.81 - Bacteremia Status: Acute Assessment and Plan: Blood cultures obtained 11/26: staph aureus, Echo LVEF 60-65% with abnormal diastolic function and an abnormal appearing aortic valve that is heavily calcified and has at least moderate stenosis. KATLIN completed today with Dr Michelle: KATLIN negative for infective endocarditis. KATLIN shows severe aortic stenosis with ALBINO of 0.9cm2. Will arrange outpatient follow up for his valvular disease. Avoid hypotension Patient is follow up culture x1 bottle on 12/01/2024 still remains positive with Staphylococcus aureus follow-up cultures from 12/03 still pending have some concern for source control only alternative could be patient's potential dialysis catheter which may need to be removed if unable to clear infection will need to discuss with Nephrology and surgery need MRI results. * Patient remains on vancomycin per Sensitivities * Repeat cultures (2) Aspiration pneumonia: Code(s): J69.0 - Pneumonitis due to inhalation of food and vomit Status: Acute Assessment and Plan: Per patient son, the patient has been coughing with meals for a few months. CXR: Opacities in the right mid and lower lung zones which could represent atelectasis, aspiration and/or pneumonia. Small right pleural effusion. Patient continues to fail modified barium swallow at this time will initiate PPN do not want to place a PICC quite yet due to patient's bacteremia that is not clearing but likely is going to be necessary not only to initiate TPN med as well for long-term IV antibiotic therapy. Will continue with PPN/TPN and plan on follow-up MBS in a few days will need to discuss with family about placing PEG tube but still once again have some reservation due to patient's continued bacteremia * NPO * started PPN * F/U MBS in 3 to 4 days but likely going to need peg tube * Speech therapy following. * Follow WBC, serum electrolytes, temperature curves and cultures * continue with current IV antibiotics (3) Encephalopathy: Code(s): G93.40 - Encephalopathy, unspecified Status: Acute Assessment and Plan: On 11/30/2024: Severely lethargic with a right side lean and associated right gaze. His voice was increasingly garbled and his responses were slow. Remained AOx3 with otherwise benign neuro exam. Likely metabolic vs drug induced (received morphine overnight) encephalopathy. 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 No acute intracranial process. Age-related changes including mild diffuse volume loss and moderate scattered white matter hypoattenuation consistent with chronic small vessel ischemic disease. Mental status improving patient with flat affect. - Morphine was discontinued - ABG: pH 7.538, pCO2 35.8, pO2 53.2, HCO3 29.8. Started on 2L NC for hypoxemia. - Lactic WNL. Procal elevated at 6.1. Glucose WNL. (4) Diabetic infection of left foot: Code(s): E11.628 - Type 2 diabetes mellitus with other skin complications; L08.9 - Local infection of the skin and subcutaneous tissue, unspecified Status: Acute Assessment and Plan: Erythema and edema to the dorsal aspect of the left foot extending to the ankle. Unable to palpate DP pulses. Black foul smelling 2nd toe of the left foot. Foot XR left showed moderate soft tissue swelling of the second digit with poor visualization fo the distal phalanx. Osteomyelitis cannot be rule out. Also extra articular fracture to the left fifth proximal phalanx, Duplex showed No evident hemodynamically significant stenosis either by follow-up elevation of peak systolic velocities or by direct visualization grayscale imaging with brisk systolic upstrokes arteries of the bilateral lower limbs. * continue with IV cefepime, Flagyl and vancomycin * Surgery consulted and performed a s/p open transmetatarsal amputation left 2nd toe on 11/[address] Goodson * MRI Pending may need further surgical intervention currently patient is not exhibiting his bacteremia * Dressing changes per surgery (5) Gangrenous toe: Code(s): I96 - Gangrene, not elsewhere classified Status: Acute Assessment and Plan: See plan above (6) Aortic stenosis: Code(s): I35.0 - Nonrheumatic aortic (valve) stenosis Status: Acute Assessment and Plan: Echo ordered to rule out endocarditis LVEF 60-65% with abnormal diastolic function and an abnormal appearing aortic valve that is heavily calcified and has at least moderate stenosis. * Recommend cardiology follow up outpatient. (7) Type 2 diabetes mellitus: Code(s): E11.9 - Type 2 diabetes mellitus without complications Status: Acute Assessment and Plan: * hypoglycemia protocol * POC blood glucose Q6hr * correct regimen ordered - low dose TIDWM currently on dextrose 5 can no home medication * A1C 5.9 in desired range (8) Anemia: Code(s): D64.9 - Anemia, unspecified Status: Chronic Assessment and Plan: Chronic, likely secondary to ESRD * Given epoetin 10,000 units x1 on 11/27 * No signs of active bleeding * Monitor H&H Tranfuse of hgb <7.0 (9) Carotid artery disease: Qualifiers: Carotid artery disease type: stenosis Laterality: unspecified laterality Qualified Code(s): I65.29 - Occlusion and stenosis of unspecified carotid artery Code(s): I77.9 - Disorder of arteries and arterioles, unspecified Status: Chronic Assessment and Plan: * Continue Plavix post surgery (10) Hypertension: Qualifiers: Hypertension type: unspecified Qualified Code(s): I10 - Essential (primary) hypertension Code(s): I10 - Essential (primary) hypertension Status: Chronic Assessment and Plan: * continued amlodipine 10 mg daily, coreg 25 mg BID, hydralazine 50 mg TID placed on hold due to patient NPO * hydralazine 10 mg IV PRN * blood pressures stable, continue to monitor (11) End stage renal disease on dialysis: Code(s): N18.6 - End stage renal disease; Z99.2 - Dependence on renal dialysis Status: Acute Assessment and Plan: * ESRD on dialysis MWF * Nephrology consulted * avoid nephrotoxic medications * pharmacy to dose antibiotic (12) Heart failure with preserved ejection fraction: Qualifiers: Heart failure chronicity: unspecified Qualified Code(s): I50.30 - Unspecified diastolic (congestive) heart failure Code(s): I50.30 - Unspecified diastolic (congestive) heart failure Status: Chronic Assessment and Plan: Chronic, does not appear in acute exacerbation, Echo 07/2023 showed LVEF 40-45% with grade 2 diastolic dysfunction Echo ordered to rule out endocarditis LVEF 60-65% with abnormal diastolic function and an abnormal appearing aortic valve that is heavily calcified and has at least moderate stenosis. * Plan to follow up with primary sound designer outpatient * monitor for fluid overload likely dialysis will assist * daily weights Plan Code status: Full code per patient DVT prophylaxis: Scd Stress ulcer prophylaxis: Protonix 40 daily PT/OT notes: Pending Disposition: patient continues admission for treatment necrotic left toe with amputation and bacteremia for set of cultures are pending for clearance will continue with current treatment plan patient failed his MBS again initiated on PPN some concern placing PICC due to continued bacteremia that is clearing need source control MRI pending for further evaluation left foot need further surgical intervention if continues through have positive blood cultures we may need to pull his dialysis catheter hopefully we can get some clearance of his bacteremia prior to having to place a PICC or PEG tube because he is likely going to need long-term IV antibiotics. will attempt another MBS in a few days and if patient is still aspirating will discuss with family the need for PEG tube vs comfort care. Time Spent With Patient Time with patient: 15 - 25 minutes Subjective Date/time seen: 12/03/24 15:17 Interval history: 59 year old male with past medical history of HTN, CAD, CVA, CHF, and ESRD on dialysis presents to the hospital with complaint of a black left toe. 12/03/2024: Patient alert and oriented can tell me he doesn't feel well but with flat effect. Denied acute pain, CP, N/V. but failed MBS again today will start PPN. Plan for MRI of left foot erythema around open surgical site noted. Review of Systems Review of Systems: 12 systems were reviewed and are negativ e except for as per HPI. All systems reviewed & are unremarkable except as noted in HPI and below Exam Narrative: General: NAD male lying in bed HEENT: Normocephalic. Chest: scattered wheezing in bilateral lower base crackles CV: RRR Abd: Abdomen was soft. Ext: LT foot with surgical dressing in place. Neuro: Patient remains AOx3 on assessment, slow to respond Psych: Flat affect Objective Data Vital Signs Vital Signs: Vital Signs - 24 hr 12/02/24 16:05 12/02/24 20:00 12/02/24 20:00 Temperature Pulse Rate 64 75 Respiratory Rate Blood Pressure Pulse Oximetry Oxygen Delivery Room Air 12/02/24 21:40 12/03/24 00:00 12/03/24 04:00 Temperature 98.1 F Pulse Rate 64 63 65 Respiratory Rate 16 Blood Pressure 153/71 H Pulse Oximetry 97 Oxygen Delivery 12/03/24 04:51 12/03/24 08:00 12/03/24 08:00 Temperature 98 F Pulse Rate 68 64 Respiratory Rate 18 Blood Pressure 154/83 H Pulse Oximetry 98 Oxygen Delivery Room Air 12/03/24 12:00 12/03/24 14:08 12/03/24 14:22 Temperature 97.7 F Pulse Rate 66 67 68 Respiratory Rate 24 H Blood Pressure 174/82 H 169/83 H Pulse Oximetry 98 Oxygen Delivery 12/03/24 14:30 12/03/24 14:45 12/03/24 15:00 Temperature Pulse Rate 66 65 66 Respiratory Rate Blood Pressure 172/84 H 172/86 H 178/81 H Pulse Oximetry Oxygen Delivery Intake/Output Intake/Output: Intake & Output 11/30/24 12/01/24 12/02/24 12/03/24 23:59 23:59 23:59 23:59 Intake Total 1750 1350 1450 1680.0 Output Total 1999 535 Balance 1750 -482 587 3767.0 Meds/Results Medications: Active Medications Generic Name Dose Route Start Last Admin Trade Name Freq PRN Reason Stop Dose Admin Amlodipine Besylate 10 mg 11/27/24 09:00 11/30/24 08:30 Amlodipine Besylate 10 Mg Tablet PO 10 mg DAILY LILIAN Administration Atorvastatin Calcium 80 mg 11/27/24 09:00 12/01/24 11:36 Atorvastatin 40 Mg Tablet PO Not Given DAILY LILIAN Carvedilol 25 mg 11/26/24 21:00 11/30/24 08:29 Carvedilol 25 Mg Tablet PO 25 mg Q12HR LILIAN Administration Clopidogrel Bisulfate 75 mg 11/27/24 09:00 12/03/24 10:50 Clopidogrel Bisulfate 75 Mg Tablet PO Not Given DAILY [facility] Collagenase 1 applic 12/03/24 21:00 Collagenase Oint 30 Gm Tube TOPICAL Q12HR LILIAN Dextrose 12.5 gm 11/30/24 16:34 Dextrose 50% 25 Gm/50 Ml Syringe IV PUSH PRN PRN Hypoglycemia Protocol Docusate Sodium 100 mg 11/26/24 17:00 11/30/24 17:21 Docusate Sodium 100 Mg Capsule PO Not Given BID LILIAN Epoetin Romain-epbx 10,000 units 12/03/24 18:00 Epoetin Romain-Epbx 10,000 Units/Ml Vial IV PUSH 12/03/24 18:01 ONCE ONE Glucagon 1 mg 11/30/24 16:34 Glucagon For Inj 1 Mg Vial IM PRN PRN Hypoglycemia Protocol Glucose 15 gm 11/30/24 16:34 Glucose Oral Gel 15 Gm Of Glucse In 37.5 Gm Tube PO PRN PRN Hypoglycemia Protocol Hydralazine HCl 50 mg 11/26/24 17:00 11/30/24 12:49 Hydralazine Hcl 50 Mg Tablet PO Not Given TID LILIAN Hydralazine HCl 10 mg 11/30/24 17:13 Hydralazine Hcl 20 Mg/Ml Vial IV PUSH Q8H PRN SBP>180 Albumin Human 50 mls @ 999 mls/hr 11/27/24 06:51 Albutein IVPB 12/27/24 06:50 Q10M PRN HYPOTENSION Ibuprofen 800 mg in 200 mls @ 400 mls/hr 11/29/24 17:35 11/30/24 21:19 Caldolor 800 Mg/200 Ml IVPB Infused Q6H PRN Infusion Breakthrough Pain Rated 1-3 or NPO Cefepime HCl 1 gm in 50 mls @ 100 mls/hr 11/30/24 18:00 12/02/24 18:00 Maxipime 1 Gm/Ns 50 Ml IVPB Infused DAILY@1800 LILIAN Infusion Metronidazole 500 mg in 100 mls @ 100 mls/hr 11/30/24 14:00 12/03/24 12:42 Flagyl 500 Mg/Iso Soln 100 Ml IVPB 100 mls/hr Q8H LILIAN Administration Dextrose 1,000 mls @ 100 mls/hr 11/30/24 16:34 Dextrose 5% 1,000 Ml IVPB PRN PRN Hypoglycemia Protocol Vancomycin HCl 750 mg in 250 mls @ 250 mls/hr 12/03/24 18:00 Vancomycin 750 Mg/Ns 250 Ml IVPB 12/03/24 18:59 ONCE ONE Dextrose 1,000 mls @ 50 mls/hr 12/03/24 12:25 Dextrose 10% IV CONT .Q20H PRN if PN is interrupted Fat Emulsion Intravenous 250 mls @ 20.833 mls/hr 12/03/24 15:00 Lipids 20% IVPB Q24H [facility] Amino Acids/Electrolytes/Dextrose 1,000 mls @ 80 mls/hr 12/03/24 15:00 Clinimix E 4.25%/5% Solution IV CONT .G78Q69M [facility] Protocol Insulin Aspart 2 - 5 units 12/01/24 00:00 12/03/24 12:43 Insulin Aspart (*Bkc) 100 Units/Ml SUB-Q Not Given Q6HR [facility] Protocol Naloxone HCl 0.1 mg 11/29/24 17:35 Naloxone Hcl 0.4 Mg/Ml Vial IV PUSH Q2M PRN Opiate Reversal Ondansetron HCl 4 mg 11/26/24 14:10 Ondansetron Inj 4 Mg/2 Ml Vial IV PUSH Q4H PRN Nausea Oxycodone/Acetaminophen 0.5 tablet 11/29/24 17:35 Oxycodone/Acetaminophen (*Crx) 5-325 Mg Tablet PO Q4H PRN Pain Rated 4-6 Pantoprazole Sodium 40 mg 12/02/24 12:00 12/03/24 10:50 Pantoprazole 40 Mg Tablet PO Not Given QAM LILIAN Polyethylene Glycol 17 gm 11/30/24 09:00 11/30/24 08:29 Polyethylene Glycol 3350 17 Gm Powd.Pack PO 17 gm QAM LILIAN Administration Senna/Docusate Sodium 2 tab 11/29/24 21:00 11/29/24 20:29 Senna/Docusate Sodium Tablet PO 2 tab HS LILIAN Administration Vancomycin HCl 1 each 11/26/24 13:16 Vancomycin For Hemodialysis IVPB PRN PRN Vancomycin Protocol Radiology Results: ITS Impressions Foot X-Ray 11/26/24 12:58 Impression: 1: Moderate soft tissue swelling of the second digit. The distal phalanx not well visualized. Cannot exclude osteomyelitis. 2: Extra-articular fracture left fifth proximal phalanx. Duplex Scan Lower Extremity Artery 11/26/24 13:53 IMPRESSION: 1. No evident hemodynamically significant stenosis either by follow-up elevation of peak systolic velocities or by direct visualization grayscale imaging with brisk systolic upstrokes arteries of the bilateral lower limbs. Head CT 11/30/24 12:22 IMPRESSION: 1. . Unchanged small old infarcts in the right frontal lobe, abdelrahman, right lentifo rm nucleus and left thalamus. No acute intracranial process. 2. Age-related changes including mild diffuse volume loss and moderate scattered white matter hypoattenuation consistent with chronic small vessel ischemic disease. Chest X-Ray 11/30/24 12:37 IMPRESSION: 1. Opacities in the right mid and lower lung zones which could represent atelectasis, aspiration and/or pneumonia. 2. Small right pleural effusion. Modified Barium Swallow 12/03/24 12:12 IMPRESSION: Pharyngeal dysphagia with laryngeal penetration and aspiration. Please correlate with speech pathologist findings and specific feeding recommendations. Labs Labs: Laboratory Results - last 24 hr 12/02/24 12/03/24 12/03/24 17:54 00:33 05:36 WBC 16.0 H RBC 3.04 L Hgb 8.9 L Hct 29.1 L MCV 95.7 MCH 29.3 MCHC 30.6 L RDW 14.7 H Plt Count 264 MPV 11.0 H Immature Gran % (Auto) 2.1 H Neut % (Auto) 84.3 H Lymph % (Auto) 4.8 L Lipscomb % (Auto) 6.8 Eos % (Auto) 1.7 Baso % (Auto) 0.3 Lymph # (Auto) 0.76 L Lipscomb # (Auto) 1.1 H Eos # (Auto) 0.3 Baso # (Auto) 0.1 Abs Immat Gran (auto) 0.33 H Absolute Neuts (auto) 13.5 H Absolute Nucleated RBC 0.000 Nucleated RBC % 0.0 APTT Sodium 141 Potassium 4.0 Chloride 108 H Carbon Dioxide 22 Anion Gap 11 BUN 42 H D Creatinine 6.23 H Estim Creat Clear Calc 13 Estimated GFR 9 L Glucose 146 H POC Capillary Glucose 123 H 140 H Calcium 7.9 L Transferrin Total Bilirubin 0.9 AST 25 ALT 39 Alkaline Phosphatase 120 Total Protein 6.5 Albumin 2.9 L Vancomycin Trough 18.9 12/03/24 12/03/24 11:39 12:53 WBC RBC Hgb Hct MCV MCH MCHC RDW Plt Count MPV Immature Gran % (Auto) Neut % (Auto) Lymph % (Auto) Lipscomb % (Auto) Eos % (Auto) Baso % (Auto) Lymph # (Auto) Lipscomb # (Auto) Eos # (Auto) Baso # (Auto) Abs Immat Gran (auto) Absolute Neuts (auto) Absolute Nucleated RBC Nucleated RBC % APTT 36.3 Sodium Potassium Chloride Carbon Dioxide Anion Gap BUN Creatinine Estim Creat Clear Calc Estimated GFR Glucose POC Capillary Glucose 170 H Calcium Transferrin < 80 L Total Bilirubin AST ALT Alkaline Phosphatase Total Protein Albumin Vancomycin Trough Quality VTE Prophylaxis VTE prophylaxis: mechanical ordered -Patient's previous records reviewed on admission -ER notes reviewed in detail on admission -discussed all findings and current treatment plan with patient/Family/POA -Consultations reviewed for recommendations -Patient's disposition for safe discharge discussed with case assistant Dictation performed by [employer] direct speech recognition software, therefore 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 Hospitalist [facility] Advance Care Plan I have confirmed that the patient's Advanced Care Plan is present, code status is documented, or surrogate decision maker is listed in patient medical record.: Yes Medication Reconciliation I have utilized all available resources to obtain, update and review the patients current medications (includes all prescriptions, OTC, herbals, cannabis, and nutritional supplements).: Yes The patient is not eligible for med reconciliation; the patient is in a emergent medical situation where delaying treatment would jeopardize the patients health.: No
--- NOTE | 2024-12-03 15:21 | PC.NURSE ---
Patient off floor for dialysis (1320). Meds will be delayed.
--- NOTE | 2024-12-03 15:29 | PC.NURSE ---
Patient's son came to visit and asked RN for an update. RN gave him all of the information that was given and told patient's son that forming a POA with his siblings is necessary and needed. Patient's son had many questions. RN offered to call CC to speak with him and his siblings. He declined as of now, but said he would return to discuss further.
[2024-12-03] MEDS: EPOETIN ALFA-EPBX 10,000 UNITS/ML VIAL 10000 UNITS IV PUSH (16:33)
--- NOTE | 2024-12-03 17:40 | P.PNGS_ITS ---
Progress Note: A&P Assessment and Plan (1) Gangrene of toe of left foot: Code(s): I96 - Gangrene, not elsewhere classified Status: Acute Assessment and Plan: No additional gangrenous changes or new areas of necrotizing soft tissue infection. Does have increased debris in the wound. Will switch to collagenase ointment instead of silver gel. Stop iodoform Nu Gauze packing and just pack with 4 x 4 gauze. Continue to dress outer wound with 4x4s and wrap with Kerlix roll. Continue IV antibiotics for MRSA (2) Necrotizing soft tissue infection: Code(s): M79.89 - Other specified soft tissue disorders Status: Acute Assessment and Plan: No new areas apparent. (3) Bacteremia: Code(s): R78.81 - Bacteremia Status: Acute Assessment and Plan: MRSA bacteremia (4) CVA (cerebral vascular accident): Code(s): I63.9 - Cerebral infarction, unspecified Status: Acute Assessment and Plan: Not sure of preoperative status but patient sleeping essentially every time I come to see him. He failed his modified swallow. May need PEG tube. 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 than yesterday.) Details: other (No increased purulence, no necrotic tissue other than skin proximal to 3rd toe); no crepitus Objective Data Vital Signs Vital Signs: Vital Signs - 24 hr 12/02/24 20:00 12/02/24 20:00 12/02/24 21:40 Temperature 36.7 C Pulse Rate 75 64 Respiratory Rate 16 Blood Pressure 153/71 H Pulse Oximetry 97 Oxygen Delivery Room Air 12/03/24 00:00 12/03/24 04:00 12/03/24 04:51 Temperature 36.6 C Pulse Rate 63 65 68 Respiratory Rate 18 Blood Pressure 154/83 H Pulse Oximetry 98 Oxygen Delivery 12/03/24 08:00 12/03/24 08:00 12/03/24 12:00 Temperature Pulse Rate 64 66 Respiratory Rate Blood Pressure Pulse Oximetry Oxygen Delivery Room Air 12/03/24 14:08 12/03/24 14:22 12/03/24 14:30 Temperature 36.5 C Pulse Rate 67 68 66 Respiratory Rate 24 H Blood Pressure 174/82 H 169/83 H 172/84 H Pulse Oximetry 98 Oxygen Delivery 12/03/24 14:45 12/03/24 15:00 12/03/24 15:15 Temperature Pulse Rate 65 66 64 Respiratory Rate Blood Pressure 172/86 H 178/81 H 184/84 H Pulse Oximetry Oxygen Delivery 12/03/24 15:30 12/03/24 15:45 12/03/24 16:00 Temperature Pulse Rate 63 66 67 Respiratory Rate Blood Pressure 183/88 H 186/89 H 180/85 H Pulse Oximetry Oxygen Delivery 12/03/24 16:15 12/03/24 16:30 Temperature Pulse Rate 68 70 Respiratory Rate Blood Pressure 182/85 H 185/92 H Pulse Oximetry Oxygen Delivery Intake/Output Intake/Output: Intake & Output 11/30/24 12/01/24 12/02/24 12/03/24 23:59 23:59 23:59 23:59 Intake Total 1750 1350 1450 1680.0 Output Total 2000 535 Balance 1750 -538 276 0853.0 Meds/Results Medications: Active Medications Generic Name Dose Route Start Last Admin Trade Name Freq PRN Reason Stop Dose Admin Amlodipine Besylate 10 mg 11/27/24 09:00 11/30/24 08:30 Amlodipine Besylate 10 Mg Tablet PO 10 mg DAILY [facility] Administration Atorvastatin Calcium 80 mg 11/27/24 09:00 12/01/24 11:36 Atorvastatin 40 Mg Tablet PO Not Given DAILY [facility] Carvedilol 25 mg 11/26/24 21:00 11/30/24 08:29 Carvedilol 25 Mg Tablet PO 25 mg Q12HR [facility] Administration Clopidogrel Bisulfate 75 mg 11/27/24 09:00 12/03/24 10:50 Clopidogrel Bisulfate 75 Mg Tablet PO Not Given DAILY [facility] Collagenase 1 applic 12/03/24 21:00 Collagenase Oint 30 Gm Tube TOPICAL Q12HR [facility] Dextrose 12.5 gm 11/30/24 16:34 Dextrose 50% 25 Gm/50 Ml Syringe IV PUSH PRN PRN Hypoglycemia Protocol Docusate Sodium 100 mg 11/26/24 17:00 11/30/24 17:21 Docusate Sodium 100 Mg Capsule PO Not Given BID [facility] Epoetin Romain-epbx 10,000 units 12/03/24 18:00 12/03/24 16:33 Epoetin Romain-Epbx 10,000 Units/Ml Vial IV PUSH 12/03/24 18:01 10,000 units ONCE ONE Administration Glucagon 1 mg 11/30/24 16:34 Glucagon For Inj 1 Mg Vial IM PRN PRN Hypoglycemia Protocol Glucose 15 gm 11/30/24 16:34 Glucose Oral Gel 15 Gm Of Glucse In 37.5 Gm Tube PO PRN PRN Hypoglycemia Protocol Hydralazine HCl 50 mg 11/26/24 17:00 11/30/24 12:49 Hydralazine Hcl 50 Mg Tablet PO Not Given TID [facility] Hydralazine HCl 10 mg 11/30/24 17:13 Hydralazine Hcl 20 Mg/Ml Vial IV PUSH Q8H PRN SBP>180 Albumin Human 50 mls @ 999 mls/hr 11/27/24 06:51 Albutein IVPB 12/27/24 06:50 Q10M PRN HYPOTENSION Ibuprofen 800 mg in 200 mls @ 400 mls/hr 11/29/24 17:35 11/30/24 21:19 Caldolor 800 Mg/200 Ml IVPB Infused Q6H PRN Infusion Breakthrough Pain Rated 1-3 or NPO Cefepime HCl 1 gm in 50 mls @ 100 mls/hr 11/30/24 18:00 12/02/24 18:00 Maxipime 1 Gm/Ns 50 Ml IVPB Infused DAILY@1800 [facility] Infusion Metronidazole 500 mg in 100 mls @ 100 mls/hr 11/30/24 14:00 12/03/24 12:42 Flagyl 500 Mg/Iso Soln 100 Ml IVPB 100 mls/hr Q8H [facility] Administration Dextrose 1,000 mls @ 100 mls/hr 11/30/24 16:34 Dextrose 5% 1,000 Ml IVPB PRN PRN Hypoglycemia Protocol Vancomycin HCl 750 mg in 250 mls @ 250 mls/hr 12/03/24 18:00 Vancomycin 750 Mg/Ns 250 Ml IVPB 12/03/24 18:59 ONCE ONE Dextrose 1,000 mls @ 50 mls/hr 12/03/24 12:25 Dextrose 10% IV CONT .Q20H PRN if PN is interrupted Fat Emulsion Intravenous 250 mls @ 20.833 mls/hr 12/03/24 15:00 Lipids 20% IVPB Q24H [facility] Amino Acids/Electrolytes/Dextrose 1,000 mls @ 80 mls/hr 12/03/24 15:00 Clinimix E 4.25%/5% Solution IV CONT .[id number] [facility] Protocol Insulin Aspart 2 - 5 units 12/01/24 00:00 12/03/24 12:43 Insulin Aspart (*Bkc) 100 Units/Ml SUB-Q Not Given Q6HR [facility] Protocol Naloxone HCl 0.1 mg 11/29/24 17:35 Naloxone Hcl 0.4 Mg/Ml Vial IV PUSH Q2M PRN Opiate Reversal Ondansetron HCl 4 mg 11/26/24 14:10 Ondansetron Inj 4 Mg/2 Ml Vial IV PUSH Q4H PRN Nausea Oxycodone/Acetaminophen 0.5 tablet 11/29/24 17:35 Oxycodone/Acetaminophen (*Crx) 5-325 Mg Tablet PO Q4H PRN Pain Rated 4-6 Pantoprazole Sodium 40 mg 12/02/24 12:00 12/03/24 10:50 Pantoprazole 40 Mg Tablet PO Not Given QAM [facility] Polyethylene Glycol 17 gm 11/30/24 09:00 11/30/24 08:29 Polyethylene Glycol 3350 17 Gm Powd.Pack PO 17 gm QAM [facility] Administration Senna/Docusate Sodium 2 tab 11/29/24 21:00 11/29/24 20:29 Senna/Docusate Sodium Tablet PO 2 tab HS [facility] Administration Vancomycin HCl 1 each 11/26/24 13:16 Vancomycin For Hemodialysis IVPB PRN PRN Vancomycin Protocol Radiology Results: ITS Impressions Foot X-Ray 11/26/24 12:58 Impression: 1: Moderate soft tissue swelling of the second digit. The distal phalanx not well visualized. Cannot exclude osteomyelitis. 2: Extra-articular fracture left fifth proximal phalanx. Duplex Scan Lower Extremity Artery 11/26/24 13:53 IMPRESSION: 1. No evident hemodynamically significant stenosis either by follow-up elevation of peak systolic velocities or by direct visualization grayscale imaging with brisk systolic upstrokes arteries of the bilateral lower limbs. Head CT 11/30/24 12:22 IMPRESSION: 1. . 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 No acute intracranial process. 2. Age-related changes including mild diffuse volume loss and moderate scattered white matter hypoattenuation consistent with chronic small vessel ischemic disease. Chest X-Ray 11/30/24 12:37 IMPRESSION: 1. Opacities in the right mid and lower lung zones which could represent atelectasis, aspiration and/or pneumonia. 2. Small right pleural effusion. Modified Barium Swallow 12/03/24 12:12 IMPRESSION: Pharyngeal dysphagia with laryngeal penetration and aspiration. Please correlate with speech pathologist findings and specific feeding recommendations. Labs Labs: Laboratory Results - last 24 hr 12/02/24 12/03/24 12/03/24 17:54 00:33 05:36 WBC 16.0 H RBC 3.04 L Hgb 8.9 L Hct 29.1 L MCV 95.7 MCH 29.3 MCHC 30.6 L RDW 14.7 H Plt Count 264 MPV 11.0 H Immature Gran % (Auto) 2.1 H Neut % (Auto) 84.3 H Lymph % (Auto) 4.8 L [place] % (Auto) 6.8 Eos % (Auto) 1.7 Baso % (Auto) 0.3 Lymph # (Auto) 0.76 L [place] # (Auto) 1.1 H Eos # (Auto) 0.3 Baso # (Auto) 0.1 Abs Immat Gran (auto) 0.33 H Absolute Neuts (auto) 13.5 H Absolute Nucleated RBC 0.000 Nucleated RBC % 0.0 APTT Sodium 141 Potassium 4.0 Chloride 108 H Carbon Dioxide 22 Anion Gap 11 BUN 42 H D Creatinine 6.23 H Estim Creat Clear Calc 13 Estimated GFR 9 L Glucose 146 H POC Capillary Glucose 123 H 140 H Calcium 7.9 L Transferrin Total Bilirubin 0.9 AST 25 ALT 39 Alkaline Phosphatase 120 Total Protein 6.5 Albumin 2.9 L Vancomycin Trough 18.9 12/03/24 12/03/24 11:39 12:53 WBC RBC Hgb Hct MCV MCH MCHC RDW Plt Count MPV Immature Gran % (Auto) Neut % (Auto) Lymph % (Auto) [place] % (Auto) Eos % (Auto) Baso % (Auto) Lymph # (Auto) [place] # (Auto) Eos # (Auto) Baso # (Auto) Abs Immat Gran (auto) Absolute Neuts (auto) Absolute Nucleated RBC Nucleated RBC % APTT 36.3 Sodium Potassium Chloride Carbon Dioxide Anion Gap BUN Creatinine Estim Creat Clear Calc Estimated GFR Glucose POC Capillary Glucose 170 H Calcium Transferrin < 80 L Total Bilirubin AST ALT Alkaline Phosphatase Total Protein Albumin Vancomycin Trough
[2024-12-03 17:45] LABS: Glucose Point of Care 114 mg/dl (65-105)
[2024-12-03] MEDS: CEFEPIME 1 GM/NS 50 ML 1 GM/50 ML BAG IVPB (18:00)
[2024-12-03] MEDS: VANCOMYCIN 750 MG/NS 250 ML 750 MG/250 ML BAG 250 MG IVPB (18:03)
--- NOTE | 2024-12-03 18:05 | PC.NURSE ---
Patient returned from Dialysis around 1754. RN clarified with Gurpreet (Vascular access) about how to run antibiotics, PPN, and fluids with one IV access and the day of dialysis (afternoon). Gurpreet said to run antibiotics when patient returns and to pause PPN to administer IV medications. Patient had Flagyl before dialysis and dialysis said the antibiotic probably was going to be dialyzed. While patient was in dialysis, Vancomyocin and Cefepime was due. RN started Cefepime right when received from dialysis and will start Vancomycin after. caustic cresylate shift superintendent will have to start PPN due to limited IV access.
[2024-12-03] MEDS: AMINO ACIDS 4.25%/D5W/LYTES/CA 1,000 ML 80 ML IV CONT (20:37)
[2024-12-03] MEDS: FAT EMULSIONS IV 20% 250 ML 20.83 ML IVPB (20:37)
[2024-12-04] VITALS (9 sets, daily range): BP systolic 150–166; BP diastolic 66–68; PULSE 65–71; RESP 16–18; TEMP 36.1–36.6; O2SAT 94–98
[2024-12-04 00:36] LABS: Glucose Point of Care 126 mg/dl (65-105)
[2024-12-04] MEDS: metroNIDAZOLE 500 MG/ISO 100ML 500 MG/100 ML BAG 100 MG IVPB ×3 (05:35→21:34)
[2024-12-04 06:25] LABS: Basophils Absolute Auto 0.1 K/mm3 (0.0-0.1); Basophils Percent Auto 0.3 % (0.2-1.2); Eosinophils Absolute Auto 0.2 K/mm3 (0-0.3); Eosinophils Percent Auto 1.3 % (0-4.4); Hematocrit 26.7 % (42.0-52.0); Hemoglobin 8.3 g/dL (14.0-18.0); Immature Granulocyte Absolute 0.41 K/mm3 (0.00-0.031); Immature Granulocyte Percent A 2.5 % (0-0.5); Lymphocytes Absolute Auto 1.08 K/mm3 (0.9-3.2); Lymphocytes Percent Auto 6.5 % (18.3-44.2); Mean Corpuscular HGB Conc 31.1 g/dl (32-36); Mean Corpuscular Volume 93.4 fl (80-100); Mean Platelet Volume 10.9 fl (7.4-10.4); Monocytes Absolute Auto 1.2 K/mm3 (0.1-0.6); Monocytes Percent Auto 7.3 % (2.6-8.5); Neutrophils Absolute Auto 13.6 K/mm3 (1.3-6.7); Neutrophils Percent Auto 82.1 % (45.5-73.1); Platelet Count Result 260 k/mm3 (150-375); Red Blood Count 2.86 M/mm3 (4.6-6.20); Red Cell Distribution Width 14.7 % (11.5-14.5); White Blood Count 16.6 K/mm3 (4.5-10.0)
[2024-12-04 06:47] LABS: Albumin Level 2.6 g/dL (3.5-5.1); Anion Gap 11 mmol/L (4-12); Blood Urea Nitrogen 33 mg/dL (9-20); Calcium 8.1 mg/dL (8.4-10.2); Carbon Dioxide 23 mmol/L (22-30); Chloride 105 mmol/L (98-107); Estimated CRCL calculation 17 ml/min; Estimated Glomerular Filt Rate 13; Glucose 145 mg/dL (65-110); Phosphorus 3.9 mg/dL (2.5-4.5); Potassium 4.1 mmol/L (3.4-5.0); Sodium 139 mmol/L (137-145)
[2024-12-04 06:49] LABS: Triglycerides 100 mg/dL (<150)
--- NOTE | 2024-12-04 09:06 | P.PNIM_ITS ---
Progress Note: A&P Assessment and Plan (1) Bacteremia: Code(s): R78.81 - Bacteremia Status: Acute Assessment and Plan: Blood cultures obtained 11/26: staph aureus, Echo LVEF 60-65% with abnormal diastolic function and an abnormal appearing aortic valve that is heavily calcified and has at least moderate stenosis. KATLIN completed today with Dr Michelle: KATLIN negative for infective endocarditis. KATLIN shows severe aortic stenosis with ALBINO of 0.9cm2. Will arrange outpatient follow up for his valvular disease. Avoid hypotension Patient is follow up culture x2 bottle on 12/01/2024 still remains positive with Staphylococcus aureus follow-up cultures from 12/03 Currently NGTD. Patient with no lines has fistula left upper arm for dialysis. MRI pending to re- evaluate for osteomyelitis. * Patient remains on vancomycin per Sensitivities * Repeat cultures (2) Aspiration pneumonia: Code(s): J69.0 - Pneumonitis due to inhalation of food and vomit Status: Acute Assessment and Plan: Per patient son, the patient has been coughing with meals for a few months. CXR: Opacities in the right mid and lower lung zones which could represent atelectasis, aspiration and/or pneumonia. Small right pleural effusion. Patient continues to fail modified barium swallow at this time will initiate PPN do not want to place a PICC quite yet due to patient's bacteremia that is not clearing but likely is going to be necessary not only to initiate TPN med as well for long-term IV antibiotic therapy. Will continue with PPN/TPN and plan on follow-up MBS in a few days will need to discuss with family about placing PEG tube but still once again have some reservation due to patient's continued bacteremia but is going to be necessary * NPO * started PPN * F/U MBS in 3 to 4 days but likely going to need peg tube * Speech therapy following. * Follow WBC, serum electrolytes, temperature curves and cultures * continue with current IV antibiotics (3) Diabetic infection of left foot: Code(s): E11.628 - Type 2 diabetes mellitus with other skin complications; L08.9 - Local infection of the skin and subcutaneous tissue, unspecified Status: Acute Assessment and Plan: Erythema and edema to the dorsal aspect of the left foot extending to the ankle. Unable to palpate DP pulses. Black foul smelling 2nd toe of the left foot. Foot XR left showed moderate soft tissue swelling of the second digit with poor visualization fo the distal phalanx. Osteomyelitis cannot be rule out. Also extra articular fracture to the left fifth proximal phalanx, Duplex showed No evident hemodynamically significant stenosis either by follow-up elevation of peak systolic velocities or by direct visualization grayscale imaging with brisk systolic upstrokes arteries of the bilateral lower limbs. * continue with IV cefepime, Flagyl and vancomycin * Surgery consulted and performed a s/p open transmetatarsal amputation left 2nd toe on 11/[address] Goodson * MRI Pending may need further surgical intervention currently patient is not clearing his bacteremia * Dressing changes per surgery (4) Gangrenous toe: Code(s): I96 - Gangrene, not elsewhere classified Status: Acute Assessment and Plan: See plan above (5) Aortic stenosis: Code(s): I35.0 - Nonrheumatic aortic (valve) stenosis Status: Acute Assessment and Plan: Echo ordered to rule out endocarditis LVEF 60-65% with abnormal diastolic function and an abnormal appearing aortic valve that is heavily calcified and has at least moderate stenosis. * Recommend cardiology follow up outpatient. (6) Type 2 diabetes mellitus: Code(s): E11.9 - Type 2 diabetes mellitus without complications Status: Acute Assessment and Plan: * hypoglycemia protocol * POC blood glucose Q6hr * correct regimen ordered - low dose TIDWM currently on dextrose 5 can no home medication * A1C 5.9 in desired range (7) Anemia: Code(s): D64.9 - Anemia, unspecified Status: Chronic Assessment and Plan: Chronic, likely secondary to ESRD * Given epoetin 10,000 units x1 on 11/27 * No signs of active bleeding * Monitor H&H Tranfuse of hgb <7.0 (8) Carotid artery disease: Qualifiers: Carotid artery disease type: stenosis Laterality: unspecified laterality Qualified Code(s): I65.29 - Occlusion and stenosis of unspecified carotid artery Code(s): I77.9 - Disorder of arteries and arterioles, unspecified Status: Chronic Assessment and Plan: * Continue Plavix post surgery (9) Hypertension: Qualifiers: Hypertension type: unspecified Qualified Code(s): I10 - Essential (primary) hypertension Code(s): I10 - Essential (primary) hypertension Status: Chronic Assessment and Plan: * continued amlodipine 10 mg daily, coreg 25 mg BID, hydralazine 50 mg TID placed on hold due to patient NPO * hydralazine 10 mg IV Switch to schedule patient has been having elevated BP and remains NPO will increase if needed * blood pressures reviewed systolic running anywhere from 180s to 160s (10) End stage renal disease on dialysis: Code(s): N18.6 - End stage renal disease; Z99.2 - Dependence on renal dialysis Status: Acute Assessment and Plan: * ESRD on dialysis [facility] * Nephrology consulted * avoid nephrotoxic medications * pharmacy to dose antibiotic (11) Heart failure with preserved ejection fraction: Qualifiers: Heart failure chronicity: unspecified Qualified Code(s): I50.30 - Unspecified diastolic (congestive) heart failure Code(s): I50.30 - Unspecified diastolic (congestive) heart failure Status: Chronic Assessment and Plan: Chronic, does not appear in acute exacerbation, Echo 07/2023 showed LVEF 40-45% with grade 2 diastolic dysfunction Echo ordered to rule out endocarditis LVEF 60-65% with abnormal diastolic function and an abnormal appearing aortic valve that is heavily calcified and has at least moderate stenosis. 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 His voice was increasingly garbled and his responses were slow. Remained AOx3 with otherwise benign neuro exam. Likely metabolic vs drug induced (received morphine overnight) encephalopathy. 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 No acute intracranial process. Age-related changes including mild diffuse volume loss and moderate scattered white matter hypoattenuation consistent with chronic small vessel ischemic disease. Mental status improving patient with flat affect. - Morphine was discontinued - ABG: pH 7.538, pCO2 35.8, pO2 53.2, HCO3 29.8. Started on 2L NC for hypoxemia. - Lactic WNL. Procal elevated at 6.1. Glucose WNL. Plan Code status: Full code per patient DVT prophylaxis: Scd Stress ulcer prophylaxis: Protonix 40 daily PT/OT notes: Pending Disposition: patient continues admission for treatment necrotic left toe with amputation and bacteremia for set of cultures are pending for clearance will continue with current treatment plan patient failed his MBS again initiated on PPN some concern placing PICC due to continued bacteremia that is clearing need source control MRI pending for further evaluation left foot need further surgical intervention if continues through have positive blood cultures hopefully we can get some clearance of his bacteremia prior to having to place a PICC or PEG tube because he is likely going to need long-term IV antibiotics. will attempt another MBS in a few days and if patient is still aspirating will discuss with family the need for PEG tube vs comfort care. Time Spent With Patient Time with patient: 15 - 25 minutes Subjective Date/time seen: 12/04/24 09:06 Interval history: 59 year old male with past medical history of HTN, CAD, CVA, CHF, and ESRD on dialysis presents to the hospital with complaint of a black left toe. 12/04/2024: Patient alert and awake son at beside updated on failed MBS, plan for MRI 12/05/2024 will need dialysis q24 hr afterwards. Patient with complaints of dry mouth otherwise doing well denies foot pain. Family reports he is at his baseline with mentation and speech mildly slurred and slow to respond. Review of Systems Review of Systems: 12 systems were reviewed and are negativ e except for as per HPI. All systems reviewed & are unremarkable except as noted in HPI and below Exam Narrative: General: NAD male lying in bed HEENT: Normocephalic. Chest: Clear to auscultation throughout CV: RRR Abd: Abdomen was soft. Ext: LT foot with surgical dressing in place. Left upper arm fistula Neuro: Patient remains AOx3 on assessment, slow to respond with mild slurred speech family reported at baseline Psych: Flat affect Objective Data Vital Signs Vital Signs: Vital Signs - 24 hr 12/03/24 12:00 12/03/24 14:08 12/03/24 14:22 Temperature 97.7 F Pulse Rate 66 67 68 Respiratory Rate 24 H Blood Pressure 174/82 H 169/83 H Pulse Oximetry 98 12/03/24 14:30 12/03/24 14:45 12/03/24 15:00 Temperature Pulse Rate 66 65 66 Respiratory Rate Blood Pressure 172/84 H 172/86 H 178/81 H Pulse Oximetry 12/03/24 15:15 12/03/24 15:30 12/03/24 15:45 Temperature Pulse Rate 64 63 66 Respiratory Rate Blood Pressure 184/84 H 183/88 H 186/89 H Pulse Oximetry 12/03/24 16:00 12/03/24 16:00 12/03/24 16:15 Temperature Pulse Rate 67 67 68 Respiratory Rate Blood Pressure 180/85 H 182/85 H Pulse Oximetry 12/03/24 16:30 12/03/24 16:45 12/03/24 17:00 Temperature Pulse Rate 70 67 69 Respiratory Rate Blood Pressure 185/92 H 191/84 H 183/82 H Pulse Oximetry 12/03/24 17:07 12/03/24 17:15 12/03/24 18:15 Temperature 98.4 F Pulse Rate 70 71 Respiratory Rate 16 Blood Pressure 189/84 H 185/81 H 176/80 H Pulse Oximetry 97 12/03/24 20:00 12/03/24 21:44 12/04/24 00:00 Temperature 97.6 F Pulse Rate 71 73 67 Respiratory Rate 18 Blood Pressure 163/72 H Pulse Oximetry 95 12/04/24 04:00 12/04/24 04:41 12/04/24 08:00 Temperature 97.9 F Pulse Rate 71 70 65 Respiratory Rate 18 Blood Pressure 166/66 H Pulse Oximetry 94 Intake/Output Intake/Output: Intake & Output 12/01/24 12/02/24 12/03/24 12/04/24 23:59 23:59 23:59 23:59 Intake Total 1350 1450 1880.0 Output Total 1999 535 2000 Balance -650 915 -120.0 Meds/Results Medications: Active Medications Generic Name Dose Route Start Last Admin Trade Name Freq PRN Reason Stop Dose Admin Amlodipine Besylate 10 mg 11/27/24 09:00 11/30/24 08:30 Amlodipine Besylate 10 Mg Tablet PO 10 mg DAILY [facility] Administration Atorvastatin Calcium 80 mg 11/27/24 09:00 12/01/24 11:36 Atorvastatin 40 Mg Tablet PO Not Given DAILY [facility] Carvedilol 25 mg 11/26/24 21:00 11/30/24 08:29 Carvedilol 25 Mg Tablet PO 25 mg Q12HR [facility] Administration Clopidogrel Bisulfate 75 mg 11/27/24 09:00 12/04/24 07:53 Clopidogrel Bisulfate 75 Mg Tablet PO Not Given DAILY [facility] Collagenase 1 applic 12/03/24 21:00 12/03/24 20:41 Collagenase Oint 30 Gm Tube TOPICAL Not Given Q12HR [facility] Dextrose 12.5 gm 11/30/24 16:34 Dextrose 50% 25 Gm/50 Ml Syringe IV PUSH PRN PRN Hypoglycemia Protocol Docusate Sodium 100 mg 11/26/24 17:00 11/30/24 17:21 Docusate Sodium 100 Mg Capsule PO Not Given BID LILIAN Glucagon 1 mg 11/30/24 16:34 Glucagon For Inj 1 Mg Vial IM PRN PRN Hypoglycemia Protocol Glucose 15 gm 11/30/24 16:34 Glucose Oral Gel 15 Gm Of Glucse In 37.5 Gm Tube PO PRN PRN Hypoglycemia Protocol Hydralazine HCl 50 mg 11/26/24 17:00 11/30/24 12:49 Hydralazine Hcl 50 Mg Tablet PO Not Given TID LIILAN Hydralazine HCl 10 mg 11/30/24 17:13 Hydralazine Hcl 20 Mg/Ml Vial IV PUSH Q8H PRN SBP>180 Albumin Human 50 mls @ 999 mls/hr 11/27/24 06:51 Albutein IVPB 12/27/24 06:50 Q10M PRN HYPOTENSION Ibuprofen 800 mg in 200 mls @ 400 mls/hr 11/29/24 17:35 11/30/24 21:19 Caldolor 800 Mg/200 Ml IVPB Infused Q6H PRN Infusion Breakthrough Pain Rated 1-3 or NPO Cefepime HCl 1 gm in 50 mls @ 100 mls/hr 11/30/24 18:00 12/03/24 18:00 Maxipime 1 Gm/Ns 50 Ml IVPB 100 mls/hr DAILY@1800 LILIAN Administration Metronidazole 500 mg in 100 mls @ 100 mls/hr 11/30/24 14:00 12/04/24 05:35 Flagyl 500 Mg/Iso Soln 100 Ml IVPB 100 mls/hr Q8H LILIAN Administration Dextrose 1,000 mls @ 100 mls/hr 11/30/24 16:34 Dextrose 5% 1,000 Ml IVPB PRN PRN Hypoglycemia Protocol Dextrose 1,000 mls @ 50 mls/hr 12/03/24 12:25 Dextrose 10% IV CONT .Q20H PRN if PN is interrupted Fat Emulsion Intravenous 250 mls @ 20.833 mls/hr 12/03/24 15:00 12/03/24 20:37 Lipids 20% IVPB 20.83 mls/hr Q24H LILIAN Administration Amino Acids/Electrolytes/Dextrose 1,000 mls @ 80 mls/hr 12/03/24 15:00 12/03/24 20:37 Clinimix E 4.25%/5% Solution IV CONT 80 mls/hr .[id number] LILIAN Administration Protocol Insulin Aspart 2 - 5 units 12/01/24 00:00 12/04/24 06:57 Insulin Aspart (*Bkc) 100 Units/Ml SUB-Q Not Given Q6HR [facility] Protocol Naloxone HCl 0.1 mg 11/29/24 17:35 Naloxone Hcl 0.4 Mg/Ml Vial IV PUSH Q2M PRN Opiate Reversal Ondansetron HCl 4 mg 11/26/24 14:10 Ondansetron Inj 4 Mg/2 Ml Vial IV PUSH Q4H PRN Nausea Oxycodone/Acetaminophen 0.5 tablet 11/29/24 17:35 Oxycodone/Acetaminophen (*Crx) 5-325 Mg Tablet PO Q4H PRN Pain Rated 4-6 Pantoprazole Sodium 40 mg 12/02/24 12:00 12/04/24 07:53 Pantoprazole 40 Mg Tablet PO Not Given QAM LILIAN Polyethylene Glycol 17 gm 11/30/24 09:00 11/30/24 08:29 Polyethylene Glycol 3350 17 Gm Powd.Pack PO 17 gm QAM LILIAN Administration Senna/Docusate Sodium 2 tab 11/29/24 21:00 11/29/24 20:29 Senna/Docusate Sodium Tablet PO 2 tab HS LILIAN Administration Vancomycin HCl 1 each 11/26/24 13:16 Vancomycin For Hemodialysis IVPB PRN PRN Vancomycin Protocol Radiology Results: ITS Impressions Foot X-Ray 11/26/24 12:58 Impression: 1: Moderate soft tissue swelling of the second digit. The distal phalanx not well visualized. Cannot exclude osteomyelitis. 2: Extra-articular fracture left fifth proximal phalanx. Duplex Scan Lower Extremity Artery 11/26/24 13:53 IMPRESSION: 1. No evident hemodynamically significant stenosis either by follow-up elevation of peak systolic velocities or by direct visualization grayscale imaging with brisk systolic upstrokes arteries of the bilateral lower limbs. Head CT 11/30/24 12:22 IMPRESSION: 1. . 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 No acute intracranial process. 2. Age-related changes including mild diffuse volume loss and moderate scattered white matter hypoattenuation consistent with chronic small vessel ischemic disease. Chest X-Ray 11/30/24 12:37 IMPRESSION: 1. Opacities in the right mid and lower lung zones which could represent atelectasis, aspiration and/or pneumonia. 2. Small right pleural effusion. Modified Barium Swallow 12/03/24 12:12 IMPRESSION: Pharyngeal dysphagia with laryngeal penetration and aspiration. Please correlate with speech pathologist findings and specific feeding recommendations. Labs Labs: Laboratory Results - last 24 hr 12/03/24 12/03/24 12/03/24 11:39 12:53 17:42 WBC RBC Hgb Hct MCV MCH MCHC RDW Plt Count MPV Immature Gran % (Auto) Neut % (Auto) Lymph % (Auto) [place] % (Auto) Eos % (Auto) Baso % (Auto) Lymph # (Auto) [place] # (Auto) Eos # (Auto) Baso # (Auto) Abs Immat Gran (auto) Absolute Neuts (auto) Absolute Nucleated RBC Nucleated RBC % APTT 36.3 Sodium Potassium Chloride Carbon Dioxide Anion Gap BUN Creatinine Estim Creat Clear Calc Estimated GFR Glucose POC Capillary Glucose 170 H 114 H Calcium Phosphorus Transferrin < 80 L Albumin Triglycerides 12/04/24 12/04/24 00:33 06:16 WBC 16.6 H RBC 2.86 L Hgb 8.3 L Hct 26.7 L MCV 93.4 MCH 29.0 MCHC 31.1 L RDW 14.7 H Plt Count 260 MPV 10.9 H Immature Gran % (Auto) 2.5 H Neut % (Auto) 82.1 H Lymph % (Auto) 6.5 L [place] % (Auto) 7.3 Eos % (Auto) 1.3 Baso % (Auto) 0.3 Lymph # (Auto) 1.08 [place] # (Auto) 1.2 H Eos # (Auto) 0.2 Baso # (Auto) 0.1 Abs Immat Gran (auto) 0.41 H Absolute Neuts (auto) 13.6 H Absolute Nucleated RBC 0.000 Nucleated RBC % 0.0 APTT Sodium 139 Potassium 4.1 Chloride 105 Carbon Dioxide 23 Anion Gap 11 BUN 33 H Creatinine 4.78 H Estim Creat Clear Calc 17 Estimated GFR 13 L Glucose 145 H POC Capillary Glucose 126 H Calcium 8.1 L Phosphorus 3.9 Transferrin Albumin 2.6 L Triglycerides 100 Quality VTE Prophylaxis VTE prophylaxis: mechanical ordered -Patient's previous records reviewed on admission -ER notes reviewed in detail on admission -discussed all findings and current treatment plan with patient/Family/POA -Consultations reviewed for recommendations -Patient's disposition for safe discharge discussed with watch case polisher Dictation performed by [employer] direct speech recognition software, therefore immunohematologist variants and typographical errors may occur. Hospitalist MIPS Advance Care Plan I have confirmed that the patient's Advanced Care Plan is present, code status is documented, or surrogate decision maker is listed in patient medical record.: Yes Medication Reconciliation I have utilized all available resources to obtain, update and review the patients current medications (includes all prescriptions, OTC, herbals, cannabis, and nutritional supplements).: Yes The patient is not eligible for med reconciliation; the patient is in a emergent medical situation where delaying treatment would jeopardize the patients health.: No
--- NOTE | 2024-12-04 10:55 | P.PNNP_ITS ---
Progress Note: A&P Assessment and Plan (1) End stage renal disease: Code(s): N18.6 - End stage renal disease Status: Chronic Assessment and Plan: * HD yesterday * continue Fri/Fri/Friday dialysis schedule while hospitalized * follow electrolytes, volume status, and clearance * kidney disease due to biopsy proven diabetes and hypertension along with vascular disease (CVA + hyperlipemia) (2) Gangrene of toe of left foot: Code(s): I96 - Gangrene, not elsewhere classified Status: Acute Assessment and Plan: * as noted by clinical exam * Surgery recommendations noted * s/p open transmetatarsal amputation left 2nd toe (11/29) * on IV antibiotics (3) Cellulitis of left foot: Code(s): L03.116 - Cellulitis of left lower limb Status: Acute Assessment and Plan: * as noted on presentation * likely a complication of diabetes and #2 * on antibiotics (4) Bacteremia: Code(s): R78.81 - Bacteremia Status: Acute Assessment and Plan: * as noted: * blood cultures (11/26): MRSA * blood cultures (11/28): MRSA * blood cultures (12/01): MRSA (1 out of 2 sets) * presumably related to #2 and #3 * results of KATLIN noted (12/01): * No evidence of infective endocarditis. The aortic valve is severely calcified with severe aortic stenosis with an ALBINO of 0.9cm2 by planimetry. * on antibiotics * noted plan for MRI of left foot * follow culture data (5) Altered mental status: Code(s): R41.82 - Altered mental status, unspecified Status: Acute Assessment and Plan: * slow improvement noted (if not back to baseline) * initially noted this on morning of 11/30 * testing/evaluation noted at that time: * ABG: pH 7.538, pCO2 35.8, pO2 53.2, HCO3 29.8 * lactic normal; procalcitonin elevated at 6.1; glucose okay * CT of brain: unchanged small old infarcts in the right frontal lobe, abdelrahman, right lentiform nucleus and left thalamus; no acute intracranial process; age-related changes including mild diffuse volume loss and moderate scattered white matter hypoattenuation consistent with chronic small vessel ischemic disease * CXR: Opacities in the right mid and lower lung zones which could represent atelectasis, aspiration and/or pneumonia; small right pleural effusion * limiting narcotics as tolerated * continue supportive therapy (6) Aspiration pneumonia: Code(s): J69.0 - Pneumonitis due to inhalation of food and vomit Status: Acute Assessment and Plan: * as suggested by CXR on 11/30 * on antibiotics * viral testing (COVID/RSV/influenza) negative * NPO as failed modified barium swallow x 2 * speech therapy following * started on PPN for nutritional support * follow respiratory status (7) Anemia: Code(s): D64.9 - Anemia, unspecified Status: Chronic Assessment and Plan: * due to ESRD with worsening due to acute illness/infection * follow trend of H/H * Epogen with HD (8) Heart failure with preserved ejection fraction: Qualifiers: Heart failure chronicity: unspecified Qualified Code(s): I50.30 - Unspecified diastolic (congestive) heart failure Code(s): I50.30 - Unspecified diastolic (congestive) heart failure Status: Chronic Assessment and Plan: * appears compensated * fluid removal with dialysis to maintain euvolemia * contineu supportive therapy (9) Hypertension: Qualifiers: Hypertension type: unspecified Qualified Code(s): I10 - Essential (primary) hypertension Code(s): I10 - Essential (primary) hypertension Status: Chronic Assessment and Plan: * reasonable control at this time * known history of poor control at baseline * follow trend of hemodynamics (10) Diabetes: Qualifiers: Diabetes mellitus type: type 2 Diabetes mellitus oysterman insulin use: without [place] [facility] use Diabetes mellitus complication status: with kidney complications Diabetes mellitus complication detail: with chronic kidney disease Chronic kidney disease stage: on chronic dialysis Qualified Code(s): E 11.22 - Type 2 diabetes mellitus with diabetic chronic kidney disease; N18.6 - End stage renal disease; Z99.2 - Dependence on renal dialysis Code(s): E11.9 - Type 2 diabetes mellitus without complications Status: Chronic Assessment and Plan: * follow accu-cheks * glycemic control per hospitalists Will continue to follow. L Subjective Date/time seen: 12/04/24 10:55 Interval history: Follow-up for end stage renal disease on hemodialysis. Tolerated dialysis treatment yesterday although session was cut short by 30 minutes due clotting of his system; remains NPO due to severe dysphagia and risk for further aspiration; still with mildly slurred speech but mentation appears stable (with his usual flat affect); started on PPN for nutritional support; no other acute complaints other than dry mouth/lips. Exam 2 Narrative: General: WD/WN male in NAD Heart: normal S1 and S2; no rub Lungs: clear anteriorly Abdomen: soft, nontender, nondistended, positive bowel sounds Extremities: no cyanosis or clubbing; + edema left foot Skin: left foot erythema around operative site present Objective Data Vital Signs Vital Signs: Vital Signs Temp Pulse Resp BP Pulse Ox O2 Del Method 12/04/24 10:33 Room Air 12/04/24 08:00 65 12/04/24 04:41 97.9 F 70 18 166/66 H 94 12/04/24 04:00 71 12/04/24 00:00 67 12/03/24 21:44 97.6 F 73 18 163/72 H 95 12/03/24 20:00 71 12/03/24 18:15 176/80 H 12/03/24 17:15 98.4 F 71 16 185/81 H 97 12/03/24 17:07 70 189/84 H 12/03/24 17:00 69 183/82 H 12/03/24 16:45 67 191/84 H 12/03/24 16:30 70 185/92 H 12/03/24 16:15 68 182/85 H 12/03/24 16:00 67 12/03/24 16:00 67 180/85 H 12/03/24 15:45 66 186/89 H 12/03/24 15:30 63 183/88 H 12/03/24 15:15 64 184/84 H Intake/Output Intake/Output: Intake & Output 12/01/24 12/02/24 12/03/24 12/04/24 23:59 23:59 23:59 23:59 Intake Total 1350 1450 1880.0 Output Total 2000 535 2000 Balance -650 915 -120.0 Meds/Results Medications: Active Medications Generic Name Dose Route Start Last Admin Trade Name Freq PRN Reason Stop Dose Admin Amlodipine Besylate 10 mg 11/27/24 09:00 11/30/24 08:30 Amlodipine Besylate 10 Mg Tablet PO 10 mg DAILY LILIAN Administration Atorvastatin Calcium 80 mg 11/27/24 09:00 12/01/24 11:36 Atorvastatin 40 Mg Tablet PO Not Given DAILY [facility] Carvedilol 25 mg 11/26/24 21:00 11/30/24 08:29 Carvedilol 25 Mg Tablet PO 25 mg Q12HR LILIAN Administration Clopidogrel Bisulfate 75 mg 11/27/24 09:00 12/04/24 07:53 Clopidogrel Bisulfate 75 Mg Tablet PO Not Given DAILY LILIAN Collagenase 1 applic 12/03/24 21:00 12/03/24 20:41 Collagenase Oint 30 Gm Tube TOPICAL Not Given Q12HR [facility] Dextrose 12.5 gm 11/30/24 16:34 Dextrose 50% 25 Gm/50 Ml Syringe IV PUSH PRN PRN Hypoglycemia Protocol Docusate Sodium 100 mg 11/26/24 17:00 11/30/24 17:21 Docusate Sodium 100 Mg Capsule PO Not Given BID [facility] Glucagon 1 mg 11/30/24 16:34 Glucagon For Inj 1 Mg Vial IM PRN PRN Hypoglycemia Protocol Glucose 15 gm 11/30/24 16:34 Glucose Oral Gel 15 Gm Of Glucse In 37.5 Gm Tube PO PRN PRN Hypoglycemia Protocol Hydralazine HCl 50 mg 11/26/24 17:00 11/30/24 12:49 Hydralazine Hcl 50 Mg Tablet PO Not Given TID [facility] Hydralazine HCl 10 mg 11/30/24 17:13 Hydralazine Hcl 20 Mg/Ml Vial IV PUSH Q8H PRN SBP>180 Albumin Human 50 mls @ 999 mls/hr 11/27/24 06:51 Albutein IVPB 12/27/24 06:50 Q10M PRN HYPOTENSION Ibuprofen 800 mg in 200 mls @ 400 mls/hr 11/29/24 17:35 11/30/24 21:19 Caldolor 800 Mg/200 Ml IVPB Infused Q6H PRN Infusion Breakthrough Pain Rated 1-3 or NPO Cefepime HCl 1 gm in 50 mls @ 100 mls/hr 11/30/24 18:00 12/03/24 18:00 Maxipime 1 Gm/Ns 50 Ml IVPB 100 mls/hr DAILY@1800 LILIAN Administration Metronidazole 500 mg in 100 mls @ 100 mls/hr 11/30/24 14:00 12/04/24 05:35 Flagyl 500 Mg/Iso Soln 100 Ml IVPB 100 mls/hr Q8H LILIAN Administration Dextrose 1,000 mls @ 100 mls/hr 11/30/24 16:34 Dextrose 5% 1,000 Ml IVPB PRN PRN Hypoglycemia Protocol Dextrose 1,000 mls @ 50 mls/hr 12/03/24 12:25 Dextrose 10% IV CONT .Q20H PRN if PN is interrupted Fat Emulsion Intravenous 250 mls @ 20.833 mls/hr 12/03/24 15:00 12/03/24 20:37 Lipids 20% IVPB 20.83 mls/hr Q24H LILIAN Administration Amino Acids/Electrolytes/Dextrose 1,000 mls @ 80 mls/hr 12/03/24 15:00 12/03/24 20:37 Clinimix E 4.25%/5% Solution IV CONT 80 mls/hr .[id number] LILIAN Administration Protocol Insulin Aspart 2 - 5 units 12/01/24 00:00 12/04/24 06:57 Insulin Aspart (*Bkc) 100 Units/Ml SUB-Q Not Given Q6HR [facility] Protocol Naloxone HCl 0.1 mg 11/29/24 17:35 Naloxone Hcl 0.4 Mg/Ml Vial IV PUSH Q2M PRN Opiate Reversal Ondansetron HCl 4 mg 11/26/24 14:10 Ondansetron Inj 4 Mg/2 Ml Vial IV PUSH Q4H PRN Nausea Oxycodone/Acetaminophen 0.5 tablet 11/29/24 17:35 Oxycodone/Acetaminophen (*Crx) 5-325 Mg Tablet PO Q4H PRN Pain Rated 4-6 Pantoprazole Sodium 40 mg 12/02/24 12:00 12/04/24 07:53 Pantoprazole 40 Mg Tablet PO Not Given QAM LILIAN Polyethylene Glycol 17 gm 11/30/24 09:00 11/30/24 08:29 Polyethylene Glycol 3350 17 Gm Powd.Pack PO 17 gm QAM LILIAN Administration Senna/Docusate Sodium 2 tab 11/29/24 21:00 11/29/24 20:29 Senna/Docusate Sodium Tablet PO 2 tab HS LILIAN Administration Vancomycin HCl 1 each 11/26/24 13:16 Vancomycin For Hemodialysis IVPB PRN PRN Vancomycin Protocol Radiology Results: ITS Impressions Foot X-Ray 11/26/24 12:58 Impression: 1: Moderate soft tissue swelling of the second digit. The distal phalanx not well visualized. Cannot exclude osteomyelitis. 2: Extra-articular fracture left fifth proximal phalanx. Duplex Scan Lower Extremity Artery 11/26/24 13:53 IMPRESSION: 1. No evident hemodynamically significant stenosis either by follow-up elevation of peak systolic velocities or by direct visualization grayscale imaging with brisk systolic upstrokes arteries of the bilateral lower limbs. Head CT 11/30/24 12:22 IMPRESSION: 1. . 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 No acute intracranial process. 2. Age-related changes including mild diffuse volume loss and moderate scattered white matter hypoattenuation consistent with chronic small vessel ischemic disease. Chest X-Ray 11/30/24 12:37 IMPRESSION: 1. Opacities in the right mid and lower lung zones which could represent atelectasis, aspiration and/or pneumonia. 2. Small right pleural effusion. Modified Barium Swallow 12/03/24 12:12 IMPRESSION: Pharyngeal dysphagia with laryngeal penetration and aspiration. Please correlate with speech pathologist findings and specific feeding recommendations. Labs Labs: Laboratory Tests 12/04/24 06:16 12/04/24 06:16 Calcium 8.1 L Phosphorus 3.9 Albumin 2.6 L Triglycerides 100 Microbiology 12/01/24 01:10 Blood Blood Culture - Preliminary Methicillin Resis Staph Aureus 12/03/24 05:36 Blood Blood Culture - Preliminary 12/03/24 05:35 Blood Blood Culture - Preliminary
--- NOTE | 2024-12-04 11:54 | WPDPN ---
Progress Note: A&P Assessment and Plan (1) Gangrene of toe of left foot: Code(s): I96 - Gangrene, not elsewhere classified Status: Acute Assessment and Plan: Postop day 5 after transmetatarsal amputation of left 2nd toe. Continue present packing changes of the wound with Santyl at the base and then dry 4x4 gauze and then wrapped with dry gauze. Continue IV antibiotics for MRSA. Continue supportive management. Subjective Date/time seen: 12/04/24 11:54 Interval history: Postop day 5 after amputation of left 3rd toe. Dressing changes now consist of Santyl to the base of the wound covered by dry gauze and wrapped with dry gauze. He has no complaints today. He is still on vancomycin for MRSA. Exam Skin: Other: The left foot wound is open with minimal granulation tissue. The base of the wound has less yellow slough today. Slight erythema around the wound at the skin but no necrotic tissue. Objective Data Vital Signs Vital Signs: Vital Signs - 24 hr 12/03/24 12:00 12/03/24 14:08 12/03/24 14:22 Temperature 36.5 C Pulse Rate 66 67 68 Respiratory Rate 24 H Blood Pressure 174/82 H 169/83 H Pulse Oximetry 98 Oxygen Delivery 12/03/24 14:30 12/03/24 14:45 12/03/24 15:00 Temperature Pulse Rate 66 65 66 Respiratory Rate Blood Pressure 172/84 H 172/86 H 178/81 H Pulse Oximetry Oxygen Delivery 12/03/24 15:15 12/03/24 15:30 12/03/24 15:45 Temperature Pulse Rate 64 63 66 Respiratory Rate Blood Pressure 184/84 H 183/88 H 186/89 H Pulse Oximetry Oxygen Delivery 12/03/24 16:00 12/03/24 16:00 12/03/24 16:15 Temperature Pulse Rate 67 67 68 Respiratory Rate Blood Pressure 180/85 H 182/85 H Pulse Oximetry Oxygen Delivery 12/03/24 16:30 12/03/24 16:45 12/03/24 17:00 Temperature Pulse Rate 70 67 69 Respiratory Rate Blood Pressure 185/92 H 191/84 H 183/82 H Pulse Oximetry Oxygen Delivery 12/03/24 17:07 12/03/24 17:15 12/03/24 18:15 Temperature 36.9 C Pulse Rate 70 71 Respiratory Rate 16 Blood Pressure 189/84 H 185/81 H 176/80 H Pulse Oximetry 97 Oxygen Delivery 12/03/24 20:00 12/03/24 21:44 12/04/24 00:00 Temperature 36.4 C Pulse Rate 71 73 67 Respiratory Rate 18 Blood Pressure 163/72 H Pulse Oximetry 95 Oxygen Delivery 12/04/24 04:00 12/04/24 04:41 12/04/24 08:00 Temperature 36.6 C Pulse Rate 71 70 65 Respiratory Rate 18 Blood Pressure 166/66 H Pulse Oximetry 94 Oxygen Delivery 12/04/24 10:33 Temperature Pulse Rate Respiratory Rate Blood Pressure Pulse Oximetry Oxygen Delivery Room Air Intake/Output Intake/Output: Intake & Output 12/01/24 12/02/24 12/03/24 12/04/24 23:59 23:59 23:59 23:59 Intake Total 1350 1450 1880.0 Output Total 2000 535 2000 Balance -650 915 -120.0 Meds/Results Medications: Active Medications Generic Name Dose Route Start Last Admin Trade Name Freq PRN Reason Stop Dose Admin Amlodipine Besylate 10 mg 11/27/24 09:00 11/30/24 08:30 Amlodipine Besylate 10 Mg Tablet PO 10 mg DAILY LILIAN Administration Atorvastatin Calcium 80 mg 11/27/24 09:00 12/01/24 11:36 Atorvastatin 40 Mg Tablet PO Not Given DAILY [facility] Carvedilol 25 mg 11/26/24 21:00 11/30/24 08:29 Carvedilol 25 Mg Tablet PO 25 mg Q12HR LILIAN Administration Clopidogrel Bisulfate 75 mg 11/27/24 09:00 12/04/24 07:53 Clopidogrel Bisulfate 75 Mg Tablet PO Not Given DAILY [facility] Collagenase 1 applic 12/03/24 21:00 12/03/24 20:41 Collagenase Oint 30 Gm Tube TOPICAL Not Given Q12HR [facility] Dextrose 12.5 gm 11/30/24 16:34 Dextrose 50% 25 Gm/50 Ml Syringe IV PUSH PRN PRN Hypoglycemia Protocol Docusate Sodium 100 mg 11/26/24 17:00 11/30/24 17:21 Docusate Sodium 100 Mg Capsule PO Not Given BID [facility]ILIAN Glucagon 1 mg 11/30/24 16:34 Glucagon For Inj 1 Mg Vial IM PRN PRN Hypoglycemia Protocol Glucose 15 gm 11/30/24 16:34 Glucose Oral Gel 15 Gm Of Glucse In 37.5 Gm Tube PO PRN PRN Hypoglycemia Protocol Hydralazine HCl 50 mg 11/26/24 17:00 11/30/24 12:49 Hydralazine Hcl 50 Mg Tablet PO Not Given TID LILIAN Hydralazine HCl 10 mg 12/04/24 09:10 Hydralazine Hcl 20 Mg/Ml Vial IV PUSH TID LILIAN Albumin Human 50 mls @ 999 mls/hr 11/27/24 06:51 Albutein IVPB 12/27/24 06:50 Q10M PRN HYPOTENSION Ibuprofen 800 mg in 200 mls @ 400 mls/hr 11/29/24 17:35 11/30/24 21:19 Caldolor 800 Mg/200 Ml IVPB Infused Q6H PRN Infusion Breakthrough Pain Rated 1-3 or NPO Cefepime HCl 1 gm in 50 mls @ 100 mls/hr 11/30/24 18:00 12/03/24 18:00 Maxipime 1 Gm/Ns 50 Ml IVPB 100 mls/hr DAILY@1800 LIL[facility] Administration Metronidazole 500 mg in 100 mls @ 100 mls/hr 11/30/24 14:00 12/04/24 05:35 Flagyl 500 Mg/Iso Soln 100 Ml IVPB 100 mls/hr Q8H [facility] Administration Dextrose 1,000 mls @ 100 mls/hr 11/30/24 16:34 Dextrose 5% 1,000 Ml IVPB PRN PRN Hypoglycemia Protocol Dextrose 1,000 mls @ 50 mls/hr 12/03/24 12:25 Dextrose 10% IV CONT .Q20H PRN if PN is interrupted Fat Emulsion Intravenous 250 mls @ 20.833 mls/hr 12/03/24 15:00 12/03/24 20:37 Lipids 20% IVPB 20.83 mls/hr Q24H LILIAN Administration Amino Acids/Electrolytes/Dextrose 1,000 mls @ 80 mls/hr 12/03/24 15:00 12/03/24 20:37 Clinimix E 4.25%/5% Solution IV CONT 80 mls/hr .[id number] LILIAN Administration Protocol Insulin Aspart 2 - 5 units 12/01/24 00:00 12/04/24 06:57 Insulin Aspart (*Bkc) 100 Units/Ml SUB-Q Not Given Q6HR [facility] Protocol Naloxone HCl 0.1 mg 11/29/24 17:35 Naloxone Hcl 0.4 Mg/Ml Vial IV PUSH Q2M PRN Opiate Reversal Ondansetron HCl 4 mg 11/26/24 14:10 Ondansetron Inj 4 Mg/2 Ml Vial IV PUSH Q4H PRN Nausea Oxycodone/Acetaminophen 0.5 tablet 11/29/24 17:35 Oxycodone/Acetaminophen (*Crx) 5-325 Mg Tablet PO Q4H PRN Pain Rated 4-6 Pantoprazole Sodium 40 mg 12/02/24 12:00 12/04/24 07:53 Pantoprazole 40 Mg Tablet PO Not Given QAM LILIAN Polyethylene Glycol 17 gm 11/30/24 09:00 11/30/24 08:29 Polyethylene Glycol 3350 17 Gm Powd.Pack PO 17 gm QAM LILIAN Administration Senna/Docusate Sodium 2 tab 11/29/24 21:00 11/29/24 20:29 Senna/Docusate Sodium Tablet PO 2 tab HS LILIAN Administration Vancomycin HCl 1 each 11/26/24 13:16 Vancomycin For Hemodialysis IVPB PRN PRN Vancomycin Protocol Radiology Results: ITS Impressions Foot X-Ray 11/26/24 12:58 Impression: 1: Moderate soft tissue swelling of the second digit. The distal phalanx not well visualized. Cannot exclude osteomyelitis. 2: Extra-articular fracture left fifth proximal phalanx. Duplex Scan Lower Extremity Artery 11/26/24 13:53 IMPRESSION: 1. No evident hemodynamically significant stenosis either by follow-up elevation of peak systolic velocities or by direct visualization grayscale imaging with brisk systolic upstrokes arteries of the bilateral lower limbs. Head CT 11/30/24 12:22 IMPRESSION: 1. . 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 No acute intracranial process. 2. Age-related changes including mild diffuse volume loss and moderate scattered white matter hypoattenuation consistent with chronic small vessel ischemic disease. Chest X-Ray 11/30/24 12:37 IMPRESSION: 1. Opacities in the right mid and lower lung zones which could represent atelectasis, aspiration and/or pneumonia. 2. Small right pleural effusion. Modified Barium Swallow 12/03/24 12:12 IMPRESSION: Pharyngeal dysphagia with laryngeal penetration and aspiration. Please correlate with speech pathologist findings and specific feeding recommendations. Labs Labs: Laboratory Results - last 24 hr 12/03/24 12/03/24 12/04/24 12:53 17:42 00:33 WBC RBC Hgb Hct MCV MCH MCHC RDW Plt Count MPV Immature Gran % (Auto) Neut % (Auto) Lymph % (Auto) [place] % (Auto) Eos % (Auto) Baso % (Auto) Lymph # (Auto) [place] # (Auto) Eos # (Auto) Baso # (Auto) Abs Immat Gran (auto) Absolute Neuts (auto) Absolute Nucleated RBC Nucleated RBC % APTT 36.3 Sodium Potassium Chloride Carbon Dioxide Anion Gap BUN Creatinine Estim Creat Clear Calc Estimated GFR Glucose POC Capillary Glucose 114 H 126 H Calcium Phosphorus Transferrin < 80 L Albumin Triglycerides 12/04/24 06:16 WBC 16.6 H RBC 2.86 L Hgb 8.3 L Hct 26.7 L MCV 93.4 MCH 29.0 MCHC 31.1 L RDW 14.7 H Plt Count 260 MPV 10.9 H Immature Gran % (Auto) 2.5 H Neut % (Auto) 82.1 H Lymph % (Auto) 6.5 L [place] % (Auto) 7.3 Eos % (Auto) 1.3 Baso % (Auto) 0.3 Lymph # (Auto) 1.08 [place] # (Auto) 1.2 H Eos # (Auto) 0.2 Baso # (Auto) 0.1 Abs Immat Gran (auto) 0.41 H Absolute Neuts (auto) 13.6 H Absolute Nucleated RBC 0.000 Nucleated RBC % 0.0 APTT Sodium 139 Potassium 4.1 Chloride 105 Carbon Dioxide 23 Anion Gap 11 BUN 33 H Creatinine 4.78 H Estim Creat Clear Calc 17 Estimated GFR 13 L Glucose 145 H POC Capillary Glucose Calcium 8.1 L Phosphorus 3.9 Transferrin Albumin 2.6 L Triglycerides 100
[2024-12-04] MEDS: hydrALAZINE HCL 20 MG/ML VIAL 10 MG IV PUSH ×2 (12:33→17:17)
[2024-12-04] MEDS: FAT EMULSIONS IV 20% 250 ML 20.83 ML IVPB (12:34)
[2024-12-04] MEDS: AMINO ACIDS 4.25%/D5W/LYTES/CA 1,000 ML 80 ML IV CONT (12:34)
[2024-12-04] MEDS: COLLAGENASE OINT 30 GM TUBE 1 APPLIC TOPICAL (12:35)
[2024-12-04 12:44] LABS: Glucose Point of Care 182 mg/dl (65-105)
--- NOTE | 2024-12-04 13:20 | PC.NURSE ---
MRI was cancelled yesterday because patient was in dialysis. RN called MRI today and was told they will do it tomorrow because he has to have dialysis within 24 hours of the MRI. He will go down tomorrow, 12/05, at noon.
[2024-12-04 17:16] LABS: Glucose Point of Care 149 mg/dl (65-105)
[2024-12-04] MEDS: CEFEPIME 1 GM/NS 50 ML 1 GM/50 ML BAG IVPB (17:17)
[2024-12-05] VITALS (9 sets, daily range): BP systolic 132–149; BP diastolic 64–73; PULSE 61–94; RESP 16–18; TEMP 36.4–36.6; O2SAT 97–99
[2024-12-05 00:17] LABS: Glucose Point of Care 115 mg/dl (65-105)
[2024-12-05] MEDS: ONDANSETRON INJ 4 MG/2 ML VIAL IV PUSH (04:51)
[2024-12-05] MEDS: metroNIDAZOLE 500 MG/ISO 100ML 500 MG/100 ML BAG 100 MG IVPB ×3 (05:15→21:32)
[2024-12-05 05:55] LABS: Basophils Absolute Auto 0.1 K/mm3 (0.0-0.1); Basophils Percent Auto 0.4 % (0.2-1.2); Eosinophils Absolute Auto 0.2 K/mm3 (0-0.3); Eosinophils Percent Auto 1.4 % (0-4.4); Hematocrit 25.8 % (42.0-52.0); Hemoglobin 8.1 g/dL (14.0-18.0); Immature Granulocyte Absolute 0.29 K/mm3 (0.00-0.031); Immature Granulocyte Percent A 1.8 % (0-0.5); Lymphocytes Absolute Auto 0.95 K/mm3 (0.9-3.2); Lymphocytes Percent Auto 5.9 % (18.3-44.2); Mean Corpuscular HGB Conc 31.4 g/dl (32-36); Mean Corpuscular Volume 92.5 fl (80-100); Mean Platelet Volume 10.7 fl (7.4-10.4); Monocytes Absolute Auto 1.1 K/mm3 (0.1-0.6); Neutrophils Absolute Auto 13.6 K/mm3 (1.3-6.7); Neutrophils Percent Auto 83.5 % (45.5-73.1); Platelet Count Result 252 k/mm3 (150-375); Red Blood Count 2.79 M/mm3 (4.6-6.20); Red Cell Distribution Width 14.6 % (11.5-14.5); White Blood Count 16.2 K/mm3 (4.5-10.0)
[2024-12-05 06:08] LABS: Albumin Level 2.8 g/dL (3.5-5.1); Anion Gap 13 mmol/L (4-12); Blood Urea Nitrogen 48 mg/dL (9-20); Calcium 8.1 mg/dL (8.4-10.2); Carbon Dioxide 22 mmol/L (22-30); Chloride 104 mmol/L (98-107); Estimated CRCL calculation 13 ml/min; Estimated Glomerular Filt Rate 9; Glucose 147 mg/dL (65-110); Phosphorus 5.2 mg/dL (2.5-4.5); Potassium 4.2 mmol/L (3.4-5.0); Sodium 139 mmol/L (137-145)
[2024-12-05] MEDS: FAT EMULSIONS IV 20% 250 ML 20.83 ML IVPB (08:54)
[2024-12-05] MEDS: AMINO ACIDS 4.25%/D5W/LYTES/CA 1,000 ML 80 ML IV CONT (08:54)
[2024-12-05] MEDS: COLLAGENASE OINT 30 GM TUBE 1 APPLIC TOPICAL (08:55)
[2024-12-05] MEDS: hydrALAZINE HCL 20 MG/ML VIAL 10 MG IV PUSH ×3 (08:55→16:42)
--- NOTE | 2024-12-05 11:54 | P.PNNP_ITS ---
Progress Note: A&P Assessment and Plan (1) End stage renal disease: Code(s): N18.6 - End stage renal disease Status: Chronic Assessment and Plan: * HD yesterday * continue Fri/Fri/Friday dialysis schedule while hospitalized * follow electrolytes, volume status, and clearance * kidney disease due to biopsy proven diabetes and hypertension along with vascular disease (CVA + hyperlipemia) (2) Gangrene of toe of left foot: Code(s): I96 - Gangrene, not elsewhere classified Status: Acute Assessment and Plan: * as noted by clinical exam * Surgery recommendations noted * s/p open transmetatarsal amputation left 2nd toe (11/29) * on IV antibiotics (3) Cellulitis of left foot: Code(s): L03.116 - Cellulitis of left lower limb Status: Acute Assessment and Plan: * as noted on presentation * likely a complication of diabetes and #2 * on antibiotics (4) Bacteremia: Code(s): R78.81 - Bacteremia Status: Acute Assessment and Plan: * as noted: * blood cultures (11/26): MRSA * blood cultures (11/28): MRSA * blood cultures (12/01): MRSA (1 out of 2 sets) * blood cultures (12/03): Staphylococcus aureus (1 out of 2 sets) * presumably related to #2 and #3 * results of KATLIN noted (12/01): * No evidence of infective endocarditis. The aortic valve is severely calcified with severe aortic stenosis with an ALBINO of 0.9cm2 by planimetry. * on antibiotics * noted plan for MRI of left foot * follow culture data (5) Altered mental status: Code(s): R41.82 - Altered mental status, unspecified Status: Acute Assessment and Plan: * slow improvement noted (if not back to baseline) * initially noted this on morning of 11/30 * testing/evaluation noted at that time: * ABG: pH 7.538, pCO2 35.8, pO2 53.2, HCO3 29.8 * lactic normal; procalcitonin elevated at 6.1; glucose okay * CT of brain: unchanged small old infarcts in the right frontal lobe, abdelrahman, right lentiform nucleus and left thalamus; no acute intracranial process; age-related changes including mild diffuse volume loss and moderate scattered white matter hypoattenuation consistent with chronic small vessel ischemic disease * CXR: Opacities in the right mid and lower lung zones which could represent atelectasis, aspiration and/or pneumonia; small right pleural effusion * limiting narcotics as tolerated * continue supportive therapy (6) Aspiration pneumonia: Code(s): J69.0 - Pneumonitis due to inhalation of food and vomit Status: Acute Assessment and Plan: * as suggested by CXR on 11/30 * on antibiotics * viral testing (COVID/RSV/influenza) negative * NPO as failed modified barium swallow x 2 * speech therapy following * started on PPN for nutritional support * follow respiratory status (7) Anemia: Code(s): D64.9 - Anemia, unspecified Status: Chronic Assessment and Plan: * due to ESRD with worsening due to acute illness/infection * follow trend of H/H * Epogen with HD (8) Heart failure with preserved ejection fraction: Qualifiers: Heart failure chronicity: unspecified Qualified Code(s): I50.30 - Unspecified diastolic (congestive) heart failure Code(s): I50.30 - Unspecified diastolic (congestive) heart failure Status: Chronic Assessment and Plan: * appears compensated * fluid removal with dialysis to maintain euvolemia * contineu supportive therapy (9) Hypertension: Qualifiers: Hypertension type: unspecified Qualified Code(s): I10 - Essential (primary) hypertension Code(s): I10 - Essential (primary) hypertension Status: Chronic Assessment and Plan: * reasonable control at this time * known history of poor control at baseline * follow trend of hemodynamics (10) Diabetes: Qualifiers: Diabetes mellitus type: type 2 Diabetes mellitus longterm insulin use: without longterm use Diabetes mellitus complication status: with kidney complications Diabetes mellitus complication detail: with chronic kidney disease Chronic kidney disease stage: on chronic dialysis Qualified Code(s): E 11.22 - Type 2 diabetes mellitus with diabetic chronic kidney disease; N18.6 - End stage renal disease; Z99.2 - Dependence on renal dialysis Code(s): E11.9 - Type 2 diabetes mellitus without complications Status: Chronic Assessment and Plan: * follow accu-cheks * glycemic control per hospitalists Will continue to follow. L Subjective Date/time seen: 12/05/24 11:54 Interval history: Follow-up for end stage renal disease on hemodialysis. No apparent distress but states that he does not feel well but difficult for him to elaborate why; blood culture still persistently positive despite all interventions to date -- MRI of left foot to be done today for further evaluation; remains NPO and on PPN for nutritional support. Exam 2 Narrative: General: WD/WN male in NAD Heart: normal S1 and S2; no rub Lungs: clear anteriorly Abdomen: soft, nontender, nondistended, positive bowel sounds Extremities: no cyanosis or clubbing; + edema left foot Skin: left foot erythema around operative site Objective Data Vital Signs Vital Signs: Vital Signs Temp Pulse Resp BP Pulse Ox O2 Del Method 12/05/24 08:00 97 Room Air 12/05/24 08:00 63 12/05/24 04:38 97.9 F 65 16 149/73 H 97 12/05/24 04:00 64 12/05/24 00:00 64 12/04/24 20:56 98 F 67 16 150/68 H 95 12/04/24 20:00 Room Air 12/04/24 20:00 68 12/04/24 16:50 97.0 F L 66 18 155/66 H 98 12/04/24 16:00 67 Intake/Output Intake/Output: Intake & Output 12/02/24 12/03/24 12/04/24 12/05/24 23:59 23:59 23:59 23:59 Intake Total 1450 1930.0 1550 1000 Output Total 535 2000 200 Balance 915 -70.0 1350 1000 Meds/Results Medications: Active Medications Generic Name Dose Route Start Last Admin Trade Name Rikq PRN Reason Stop Dose Admin Amlodipine Besylate 10 mg 11/27/24 09:00 11/30/24 08:30 Amlodipine Besylate 10 Mg Tablet PO 10 mg DAILY [facility] Administration Atorvastatin Calcium 80 mg 11/27/24 09:00 12/01/24 11:36 Atorvastatin 40 Mg Tablet PO Not Given DAILY [facility] Carvedilol 25 mg 11/26/24 21:00 11/30/24 08:29 Carvedilol 25 Mg Tablet PO 25 mg Q12HR [facility] Administration Clopidogrel Bisulfate 75 mg 11/27/24 09:00 12/05/24 08:02 Clopidogrel Bisulfate 75 Mg Tablet PO Not Given DAILY [facility] Collagenase 1 applic 12/03/24 21:00 12/05/24 08:55 Collagenase Oint 30 Gm Tube TOPICAL 1 applic Q12HR [facility] Administration Dextrose 12.5 gm 11/30/24 16:34 Dextrose 50% 25 Gm/50 Ml Syringe IV PUSH PRN PRN Hypoglycemia Protocol Docusate Sodium 100 mg 11/26/24 17:00 11/30/24 17:21 Docusate Sodium 100 Mg Capsule PO Not Given BID [facility] Glucagon 1 mg 11/30/24 16:34 Glucagon For Inj 1 Mg Vial IM PRN PRN Hypoglycemia Protocol Glucose 15 gm 11/30/24 16:34 Glucose Oral Gel 15 Gm Of Glucse In 37.5 Gm Tube PO PRN PRN Hypoglycemia Protocol Hydralazine HCl 50 mg 11/26/24 17:00 11/30/24 12:49 Hydralazine Hcl 50 Mg Tablet PO Not Given TID [facility] Hydralazine HCl 10 mg 12/04/24 09:10 12/05/24 08:55 Hydralazine Hcl 20 Mg/Ml Vial IV PUSH 10 mg TID [facility] Administration Albumin Human 50 mls @ 999 mls/hr 11/27/24 06:51 Albutein IVPB 12/27/24 06:50 Q10M PRN HYPOTENSION Ibuprofen 800 mg in 200 mls @ 400 mls/hr 11/29/24 17:35 11/30/24 21:19 Caldolor 800 Mg/200 Ml IVPB Infused Q6H PRN Infusion Breakthrough Pain Rated 1-3 or NPO Cefepime HCl 1 gm in 50 mls @ 100 mls/hr 11/30/24 18:00 12/04/24 17:17 Maxipime 1 Gm/Ns 50 Ml IVPB 100 mls/hr DAILY@1800 [facility] Administration Metronidazole 500 mg in 100 mls @ 100 mls/hr 11/30/24 14:00 12/05/24 05:15 Flagyl 500 Mg/Iso Soln 100 Ml IVPB 100 mls/hr Q8H [facility] Administration Dextrose 1,000 mls @ 100 mls/hr 11/30/24 16:34 Dextrose 5% 1,000 Ml IVPB PRN PRN Hypoglycemia Protocol Dextrose 1,000 mls @ 50 mls/hr 12/03/24 12:25 Dextrose 10% IV CONT .Q20H PRN if PN is interrupted Amino Acids/Electrolytes/Dextrose 1,000 mls @ 80 mls/hr 12/03/24 15:00 12/05/24 08:56 Clinimix E 4.25%/5% Solution IV CONT Not Given .[id number] ON LICENSE OF [facility] Protocol Fat Emulsion Intravenous 250 mls @ 20.833 mls/hr 12/05/24 09:00 12/05/24 08:54 Lipids 20% IVPB 20.83 mls/hr Q24H [facility] Administration Insulin Aspart 2 - 5 units 12/01/24 00:00 12/05/24 06:14 Insulin Aspart (*Bkc) 100 Units/Ml SUB-Q Not Given Q6HR ON LICENSE OF [facility] Protocol Naloxone HCl 0.1 mg 11/29/24 17:35 Naloxone Hcl 0.4 Mg/Ml Vial IV PUSH Q2M PRN Opiate Reversal Ondansetron HCl 4 mg 11/26/24 14:10 12/05/24 04:51 Ondansetron Inj 4 Mg/2 Ml Vial IV PUSH 4 mg Q4H PRN Administration Nausea Oxycodone/Acetaminophen 0.5 tablet 11/29/24 17:35 Oxycodone/Acetaminophen (*Crx) 5-325 Mg Tablet PO Q4H PRN Pain Rated 4-6 Pantoprazole Sodium 40 mg 12/02/24 12:00 12/05/24 08:02 Pantoprazole 40 Mg Tablet PO Not Given QAM [facility] Polyethylene Glycol 17 gm 11/30/24 09:00 11/30/24 08:29 Polyethylene Glycol 3350 17 Gm Powd.Pack PO 17 gm QAM [facility] Administration Senna/Docusate Sodium 2 tab 11/29/24 21:00 11/29/24 20:29 Senna/Docusate Sodium Tablet PO 2 tab HS ON LICENSE OF [facility] Administration Vancomycin HCl 1 each 11/26/24 13:16 Vancomycin For Hemodialysis IVPB PRN PRN Vancomycin Protocol Radiology Results: ITS Impressions Foot X-Ray 11/26/24 12:58 Impression: 1: Moderate soft tissue swelling of the second digit. The distal phalanx not well visualized. Cannot exclude osteomyelitis. 2: Extra-articular fracture left fifth proximal phalanx. Duplex Scan Lower Extremity Artery 11/26/24 13:53 IMPRESSION: 1. No evident hemodynamically significant stenosis either by follow-up elevation of peak systolic velocities or by direct visualization grayscale imaging with brisk systolic upstrokes arteries of the bilateral lower limbs. Head CT 11/30/24 12:22 IMPRESSION: 1. . 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 No acute intracranial process. 2. Age-related changes including mild diffuse volume loss and moderate scattered white matter hypoattenuation consistent with chronic small vessel ischemic disease. Chest X-Ray 11/30/24 12:37 IMPRESSION: 1. Opacities in the right mid and lower lung zones which could represent atelectasis, aspiration and/or pneumonia. 2. Small right pleural effusion. Modified Barium Swallow 12/03/24 12:12 IMPRESSION: Pharyngeal dysphagia with laryngeal penetration and aspiration. Please correlate with speech pathologist findings and specific feeding recommendations. Labs Labs: Laboratory Tests 12/05/24 05:38 12/05/24 05:38 Calcium 8.1 L Phosphorus 5.2 H Albumin 2.8 L Microbiology 12/03/24 05:36 Blood Blood Culture - Final Staphylococcus aureus 11/28/24 11:10 Blood Blood Culture - Final Staphylococcus aureus 11/28/24 11:17 Blood Blood Culture - Final Methicillin Resis Staph Aureus 12/01/24 01:10 Blood Blood Culture - Preliminary Methicillin Resis Staph Aureus
--- NOTE | 2024-12-05 12:08 | WPDPN ---
Progress Note: A&P Assessment and Plan (1) Diabetic infection of left foot: Code(s): E11.628 - Type 2 diabetes mellitus with other skin complications; L08.9 - Local infection of the skin and subcutaneous tissue, unspecified Status: Acute Assessment and Plan: Status post amputation of left 2nd toe. Likely has involvement of the left 1st metatarsophalangeal joint with continued elevated white blood cell count and redness over the joint. The left 3rd toe has some necrotic tissue superficially as well over the extensor tendon. Patient is given MRI today of the left foot but I suspect it will show continued osteomyelitis. Continue packing with Santyl and 4x4 gauze for now. Continue IV antibiotics. I discussed with the patient and his family at the bedside that higher level amputation with List Oliver of the left foot to preserve the heel verses a left below-knee amputation is a real possible this wound does not seem to be healing well. Subjective Date/time seen: 12/05/24 12:08 Interval history: Patient is postop day 5. After amputation of left 2nd toe for diabetic ulcer. Wound is cultured MRSA. Patient remains on IV antibiotics to include vancomycin. White blood count is stable about 16,000. He is not decreased that much since surgery. He is set to get MRI of the foot today. Exam Extrem: Other: The left foot wound is open. Medial towards the right metatarsophalangeal joint there is redness over the joint. Small amount of purulent drainage. To the lateral part to the 3rd toe there is some necrotic tissue superficial to the tendon. Base of the wound no granulation tissue and quite a bit of slough. Objective Data Vital Signs Vital Signs: Vital Signs - 24 hr 12/04/24 16:00 12/04/24 16:50 12/04/24 20:00 Temperature 36.1 C L Pulse Rate 67 66 68 Respiratory Rate 18 Blood Pressure 155/66 H Pulse Oximetry 98 Oxygen Delivery 12/04/24 20:00 12/04/24 20:56 12/05/24 00:00 Temperature 36.6 C Pulse Rate 67 64 Respiratory Rate 16 Blood Pressure 150/68 H Pulse Oximetry 95 Oxygen Delivery Room Air 12/05/24 04:00 12/05/24 04:38 12/05/24 08:00 Temperature 36.6 C Pulse Rate 64 65 63 Respiratory Rate 16 Blood Pressure 149/73 H Pulse Oximetry 97 Oxygen Delivery 12/05/24 08:00 Temperature Pulse Rate Respiratory Rate Blood Pressure Pulse Oximetry 97 Oxygen Delivery Room Air Intake/Output Intake/Output: Intake & Output 12/02/24 12/03/24 12/04/24 12/05/24 23:59 23:59 23:59 23:59 Intake Total 1450 1930.0 1550 1000 Output Total 535 2000 200 Balance 915 -70.0 1350 1000 Meds/Results Medications: Active Medications Generic Name Dose Route Start Last Admin Trade Name Freq PRN Reason Stop Dose Admin Amlodipine Besylate 10 mg 11/27/24 09:00 11/30/24 08:30 Amlodipine Besylate 10 Mg Tablet PO 10 mg DAILY [facility] Administration Atorvastatin Calcium 80 mg 11/27/24 09:00 12/01/24 11:36 Atorvastatin 40 Mg Tablet PO Not Given DAILY [facility] Carvedilol 25 mg 11/26/24 21:00 11/30/24 08:29 Carvedilol 25 Mg Tablet PO 25 mg Q12HR [facility] Administration Clopidogrel Bisulfate 75 mg 11/27/24 09:00 12/05/24 08:02 Clopidogrel Bisulfate 75 Mg Tablet PO Not Given DAILY [facility] Collagenase 1 applic 12/03/24 21:00 12/05/24 08:55 Collagenase Oint 30 Gm Tube TOPICAL 1 applic Q12HR [facility] Administration Dextrose 12.5 gm 11/30/24 16:34 Dextrose 50% 25 Gm/50 Ml Syringe IV PUSH PRN PRN Hypoglycemia Protocol Docusate Sodium 100 mg 11/26/24 17:00 11/30/24 17:21 Docusate Sodium 100 Mg Capsule PO Not Given BID [facility] Glucagon 1 mg 11/30/24 16:34 Glucagon For Inj 1 Mg Vial IM PRN PRN Hypoglycemia Protocol Glucose 15 gm 11/30/24 16:34 Glucose Oral Gel 15 Gm Of Glucse In 37.5 Gm Tube PO PRN PRN Hypoglycemia Protocol Hydralazine HCl 50 mg 11/26/24 17:00 11/30/24 12:49 Hydralazine Hcl 50 Mg Tablet PO Not Given TID [facility] Hydralazine HCl 10 mg 12/04/24 09:10 12/05/24 08:55 Hydralazine Hcl 20 Mg/Ml Vial IV PUSH 10 mg TID [facility] Administration Albumin Human 50 mls @ 999 mls/hr 11/27/24 06:51 Albutein IVPB 07/14/25 06:50 Q10M PRN HYPOTENSION Ibuprofen 800 mg in 200 mls @ 400 mls/hr 11/29/24 17:35 11/30/24 21:19 Caldolor 800 Mg/200 Ml IVPB Infused Q6H PRN Infusion Breakthrough Pain Rated 1-3 or NPO Cefepime HCl 1 gm in 50 mls @ 100 mls/hr 11/30/24 18:00 12/04/24 17:17 Maxipime 1 Gm/Ns 50 Ml IVPB 100 mls/hr DAILY@1800 [facility] Administration Metronidazole 500 mg in 100 mls @ 100 mls/hr 11/30/24 14:00 12/05/24 05:15 Flagyl 500 Mg/Iso Soln 100 Ml IVPB 100 mls/hr Q8H [facility] Administration Dextrose 1,000 mls @ 100 mls/hr 11/30/24 16:34 Dextrose 5% 1,000 Ml IVPB PRN PRN Hypoglycemia Protocol Dextrose 1,000 mls @ 50 mls/hr 12/03/24 12:25 Dextrose 10% IV CONT .Q20H PRN if PN is interrupted Amino Acids/Electrolytes/Dextrose 1,000 mls @ 80 mls/hr 12/03/24 15:00 12/05/24 08:56 Clinimix E 4.25%/5% Solution IV CONT Not Given .[id number] [facility] Protocol Fat Emulsion Intravenous 250 mls @ 20.833 mls/hr 12/05/24 09:00 12/05/24 08:54 Lipids 20% IVPB 20.83 mls/hr Q24H [facility] Administration Insulin Aspart 2 - 5 units 12/01/24 00:00 12/05/24 06:14 Insulin Aspart (*Bkc) 100 Units/Ml SUB-Q Not Given Q6HR [facility] Protocol Naloxone HCl 0.1 mg 11/29/24 17:35 Naloxone Hcl 0.4 Mg/Ml Vial IV PUSH Q2M PRN Opiate Reversal Ondansetron HCl 4 mg 11/26/24 14:10 12/05/24 04:51 Ondansetron Inj 4 Mg/2 Ml Vial IV PUSH 4 mg Q4H PRN Administration Nausea Oxycodone/Acetaminophen 0.5 tablet 11/29/24 17:35 Oxycodone/Acetaminophen (*Crx) 5-325 Mg Tablet PO Q4H PRN Pain Rated 4-6 Pantoprazole Sodium 40 mg 12/02/24 12:00 12/05/24 08:02 Pantoprazole 40 Mg Tablet PO Not Given QAM [facility] Polyethylene Glycol 17 gm 11/30/24 09:00 11/30/24 08:29 Polyethylene Glycol 3350 17 Gm Powd.Pack PO 17 gm QAM [facility] Administration Senna/Docusate Sodium 2 tab 11/29/24 21:00 11/29/24 20:29 Senna/Docusate Sodium Tablet PO 2 tab HS [facility] Administration Vancomycin HCl 1 each 11/26/24 13:16 Vancomycin For Hemodialysis IVPB PRN PRN Vancomycin Protocol Radiology Results: ITS Impressions Foot X-Ray 11/26/24 12:58 Impression: 1: Moderate soft tissue swelling of the second digit. The distal phalanx not well visualized. Cannot exclude osteomyelitis. 2: Extra-articular fracture left fifth proximal phalanx. Duplex Scan Lower Extremity Artery 11/26/24 13:53 IMPRESSION: 1. No evident hemodynamically significant stenosis either by follow-up elevation of peak systolic velocities or by direct visualization grayscale imaging with brisk systolic upstrokes arteries of the bilateral lower limbs. Head CT 11/30/24 12:22 IMPRESSION: 1. . 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 No acute intracranial process. 2. Age-related changes including mild diffuse volume loss and moderate scattered white matter hypoattenuation consistent with chronic small vessel ischemic disease. Chest X-Ray 11/30/24 12:37 IMPRESSION: 1. Opacities in the right mid and lower lung zones which could represent atelectasis, aspiration and/or pneumonia. 2. Small right pleural effusion. Modified Barium Swallow 12/03/24 12:12 IMPRESSION: Pharyngeal dysphagia with laryngeal penetration and aspiration. Please correlate with speech pathologist findings and specific feeding recommendations. Labs Labs: Laboratory Results - last 24 hr 12/04/24 12/04/24 12/05/24 12:31 17:13 00:14 WBC RBC Hgb Hct MCV MCH MCHC RDW Plt Count MPV Immature Gran % (Auto) Neut % (Auto) Lymph % (Auto) [place] % (Auto) Eos % (Auto) Baso % (Auto) Lymph # (Auto) [place] # (Auto) Eos # (Auto) Baso # (Auto) Abs Immat Gran (auto) Absolute Neuts (auto) Absolute Nucleated RBC Nucleated RBC % Sodium Potassium Chloride Carbon Dioxide Anion Gap BUN Creatinine Estim Creat Clear Calc Estimated GFR Glucose POC Capillary Glucose 182 H 149 H 115 H Calcium Phosphorus Albumin 12/05/24 05:38 WBC 16.2 H RBC 2.79 L Hgb 8.1 L Hct 25.8 L MCV 92.5 MCH 29.0 MCHC 31.4 L RDW 14.6 H Plt Count 252 MPV 10.7 H Immature Gran % (Auto) 1.8 H Neut % (Auto) 83.5 H Lymph % (Auto) 5.9 L [place] % (Auto) 7.0 Eos % (Auto) 1.4 Baso % (Auto) 0.4 Lymph # (Auto) 0.95 [place] # (Auto) 1.1 H Eos # (Auto) 0.2 Baso # (Auto) 0.1 Abs Immat Gran (auto) 0.29 H Absolute Neuts (auto) 13.6 H Absolute Nucleated RBC 0.000 Nucleated RBC % 0.0 Sodium 139 Potassium 4.2 Chloride 104 Carbon Dioxide 22 Anion Gap 13 H BUN 48 H D Creatinine 6.34 H Estim Creat Clear Calc 13 Estimated GFR 9 L Glucose 147 H POC Capillary Glucose Calcium 8.1 L Phosphorus 5.2 H Albumin 2.8 L
--- NOTE | 2024-12-05 12:29 | P.PNIM_ITS ---
Progress Note: A&P Assessment and Plan (1) Bacteremia: Code(s): R78.81 - Bacteremia Status: Acute Assessment and Plan: Blood cultures obtained 11/26: staph aureus, Echo LVEF 60-65% with abnormal diastolic function and an abnormal appearing aortic valve that is heavily calcified and has at least moderate stenosis. KATLIN completed today with Dr Michelle: KATLIN negative for infective endocarditis. KATLIN shows severe aortic stenosis with ALBINO of 0.9cm2. Will arrange outpatient follow up for his valvular disease. Avoid hypotension Patient is follow up culture x1 bottle on 12/01/2024 still remains positive with Staphylococcus aureus follow-up cultures from 12/03 positive need source control will likely need further surgical intervention noted by surgery that there was some necrotic tissue superficial to the tendon. Base of the wound no granulation tissue and quite a bit of slough. MRI Results: Status post transmetatarsal amputation of the second digit. 2.4 x 1.8 x 3.3 cm peripherally enhancing fluid collection at the second interspace at the level the proximal metatarsal shafts is compatible with abscess. Diffuse myositis of the plantar musculature of the foot. No evidence for osteomyelitis or fracture. Susceptibility artifact at the operative bed and dorsal soft tissues at the second digit region could reflect artifact and/or open soft tissue wound. Correlate with physical exam. * Patient remains on vancomycin per Sensitivities * Repeat cultures (2) Diabetic infection of left foot: Code(s): E11.628 - Type 2 diabetes mellitus with other skin complications; L08.9 - Local infection of the skin and subcutaneous tissue, unspecified Status: Acute Assessment and Plan: Erythema and edema to the dorsal aspect of the left foot extending to the ankle. Unable to palpate DP pulses. Black foul smelling 2nd toe of the left foot. Foot XR left showed moderate soft tissue swelling of the second digit with poor visualization fo the distal phalanx. Osteomyelitis cannot be rule out. Also extra articular fracture to the left fifth proximal phalanx, Duplex showed No evident hemodynamically significant stenosis either by follow-up elevation of peak systolic velocities or by direct visualization grayscale imaging with brisk systolic upstrokes arteries of the bilateral lower limbs. * continue with IV cefepime, Flagyl and vancomycin * Surgery consulted and performed a s/p open transmetatarsal amputation left 2nd toe on 11/[address] Goodson * MRI Pending may need further surgical intervention currently patient is not exhibiting his bacteremia * Dressing changes per surgery SEE ABOVE #1 (3) Aspiration pneumonia: Code(s): J69.0 - Pneumonitis due to inhalation of food and vomit Status: Acute Assessment and Plan: Per patient son, the patient has been coughing with meals for a few months. CXR: Opacities in the right mid and lower lung zones which could represent atelectasis, aspiration and/or pneumonia. Small right pleural effusion. Patient continues to fail modified barium swallow at this time will initiate PPN do not want to place a PICC quite yet due to patient's bacteremia that is not clearing but likely is going to be necessary not only to initiate TPN med as well for long-term IV antibiotic therapy. Will continue with PPN/TPN and plan on follow-up MBS in a few days will need to discuss with family about placing PEG tube but still once again have some reservation due to patient's continued bacteremia * NPO * started PPN * F/U MBS in 3 to 4 days but likely going to need peg tube * Speech therapy following. * Follow WBC, serum electrolytes, temperature curves and cultures * continue with current IV antibiotics (4) Gangrenous toe: Code(s): I96 - Gangrene, not elsewhere classified Status: Acute Assessment and Plan: See plan above (5) Aortic stenosis: Code(s): I35.0 - Nonrheumatic aortic (valve) stenosis Status: Acute Assessment and Plan: Echo ordered to rule out endocarditis LVEF 60-65% with abnormal diastolic function and an abnormal appearing aortic valve that is heavily calcified and has at least moderate stenosis. * Recommend cardiology follow up outpatient. (6) Type 2 diabetes mellitus: Code(s): E11.9 - Type 2 diabetes mellitus without complications Status: Acute Assessment and Plan: * hypoglycemia protocol * POC blood glucose Q6hr * correct regimen ordered - low dose TIDWM currently on dextrose 5 can no home medication * A1C 5.9 in desired range (7) Anemia: Code(s): D64.9 - Anemia, unspecified Status: Chronic Assessment and Plan: Chronic, likely secondary to ESRD * Given epoetin 10,000 units x1 on 11/27 * No signs of active bleeding * Monitor H&H Tranfuse of hgb <7.0 (8) Carotid artery disease: Qualifiers: Carotid artery disease type: stenosis Laterality: unspecified laterality Qualified Code(s): I65.29 - Occlusion and stenosis of unspecified carotid artery Code(s): I77.9 - Disorder of arteries and arterioles, unspecified Status: Chronic Assessment and Plan: * Continue Plavix post surgery (9) Hypertension: Qualifiers: Hypertension type: unspecified Qualified Code(s): I10 - Essential (primary) hypertension Code(s): I10 - Essential (primary) hypertension Status: Chronic Assessment and Plan: * continued amlodipine 10 mg daily, coreg 25 mg BID, hydralazine 50 mg TID placed on hold due to patient NPO * hydralazine 10 mg IV PRN * blood pressures stable, continue to monitor (10) End stage renal disease on dialysis: Code(s): N18.6 - End stage renal disease; Z99.2 - Dependence on renal dialysis Status: Acute Assessment and Plan: * ESRD on dialysis [facility] * Nephrology consulted * avoid nephrotoxic medications * pharmacy to dose antibiotic (11) Heart failure with preserved ejection fraction: Qualifiers: Heart failure chronicity: unspecified Qualified Code(s): I50.30 - Unspecified diastolic (congestive) heart failure Code(s): I50.30 - Unspecified diastolic (congestive) heart failure Status: Chronic Assessment and Plan: Chronic, does not appear in acute exacerbation, Echo 07/2023 showed LVEF 40-45% with grade 2 diastolic dysfunction Echo ordered to rule out endocarditis LVEF 60-65% with abnormal diastolic function and an abnormal appearing aortic valve that is heavily calcified and has at least moderate stenosis. * Plan to follow up with primary traffic control officer outpatient * monitor for fluid overload likely dialysis will assist * daily weights (12) Encephalopathy: Code(s): G93.40 - Encephalopathy, unspecified Status: Acute Assessment and Plan: On 11/30/2024: Severely lethargic with a right side lean and associated right gaze. His voice was increasingly garbled and his responses were slow. Remained AOx3 with otherwise benign neuro exam. Likely metabolic vs drug induced (received morphine overnight) encephalopathy. 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 No acute intracranial process. Age-related changes including mild diffuse volume loss and moderate scattered white matter hypoattenuation consistent with chronic small vessel ischemic disease. Mental status improving patient with flat affect. - Morphine was discontinued - ABG: pH 7.538, pCO2 35.8, pO2 53.2, HCO3 29.8. Started on 2L NC for hypoxemia. - Lactic WNL. Procal elevated at 6.1. Glucose WNL. L Plan Code status: Full code per patient DVT prophylaxis: Scd Stress ulcer prophylaxis: Protonix 40 daily PT/OT notes: Pending Disposition: patient continues admission for treatment necrotic left toe with amputation and bacteremia for set of cultures are pending for clearance will continue with current treatment plan patient failed his MBS again initiated on PPN some concern placing PICC due to continued bacteremia that is clearing need source control likely need further surgical intervention if continues through have positive blood cultures hopefully we can get some clearance of his bacteremia prior to having to place a PICC or PEG tube because he is likely going to need long-term IV antibiotics. will attempt another MBS in a few days and if patient is still aspirating will discuss with family the need for PEG tube vs comfort care. Time Spent With Patient Time with patient: 15 - 25 minutes Subjective Date/time seen: 12/05/24 12:29 Interval history: 59 year old male with past medical history of HTN, CAD, CVA, CHF, and ESRD on dialysis presents to the hospital with complaint of a black left toe. 12/05/2024: Patient alert and awake, still just not feeling well overall. Denies CP, SOB, N/V. Remains afebrile and WBC unchanged blood cultures still positive likely going to need further surgical intervention for source control. Review of Systems Review of Systems: 12 systems were reviewed and are negativ e except for as per HPI. All systems reviewed & are unremarkable except as noted in HPI and below Exam Narrative: General: NAD male lying in bed HEENT: Normocephalic. Chest: Clear to auscultation throughout CV: RRR Abd: Abdomen was soft. Ext: LT foot with surgical dressing in place. Left upper arm fistula Neuro: Patient remains AOx3 on assessment, slow to respond with mild slurred speech family reported at baseline Psych: Flat affect Objective Data Vital Signs Vital Signs: Vital Signs - 24 hr 12/04/24 16:00 12/04/24 16:50 12/04/24 20:00 Temperature 97.0 F L Pulse Rate 67 66 68 Respiratory Rate 18 Blood Pressure 155/66 H Pulse Oximetry 98 Oxygen Delivery 12/04/24 20:00 12/04/24 20:56 12/05/24 00:00 Temperature 98 F Pulse Rate 67 64 Respiratory Rate 16 Blood Pressure 150/68 H Pulse Oximetry 95 Oxygen Delivery Room Air 12/05/24 04:00 12/05/24 04:38 12/05/24 08:00 Temperature 97.9 F Pulse Rate 64 65 63 Respiratory Rate 16 Blood Pressure 149/73 H Pulse Oximetry 97 Oxygen Delivery 12/05/24 08:00 Temperature Pulse Rate Respiratory Rate Blood Pressure Pulse Oximetry 97 Oxygen Delivery Room Air Intake/Output Intake/Output: Intake & Output 12/02/24 12/03/24 12/04/24 12/05/24 23:59 23:59 23:59 23:59 Intake Total 1450 1930.0 1550 1000 Output Total 535 2000 200 Balance 915 -70.0 1350 1000 Meds/Results Medications: Active Medications Generic Name Dose Route Start Last Admin Trade Name Freq PRN Reason Stop Dose Admin Amlodipine Besylate 10 mg 11/27/24 09:00 11/30/24 08:30 Amlodipine Besylate 10 Mg Tablet PO 10 mg DAILY LILIAN Administration Atorvastatin Calcium 80 mg 11/27/24 09:00 12/01/24 11:36 Atorvastatin 40 Mg Tablet PO Not Given DAILY [facility] Carvedilol 25 mg 11/26/24 21:00 11/30/24 08:29 Carvedilol 25 Mg Tablet PO 25 mg Q12HR LILIAN Administration Clopidogrel Bisulfate 75 mg 11/27/24 09:00 12/05/24 08:02 Clopidogrel Bisulfate 75 Mg Tablet PO Not Given DAILY [facility] Collagenase 1 applic 12/03/24 21:00 12/05/24 08:55 Collagenase Oint 30 Gm Tube TOPICAL 1 applic Q12HR [facility] Administration Dextrose 12.5 gm 11/30/24 16:34 Dextrose 50% 25 Gm/50 Ml Syringe IV PUSH PRN PRN Hypoglycemia Protocol Docusate Sodium 100 mg 11/26/24 17:00 11/30/24 17:21 Docusate Sodium 100 Mg Capsule PO Not Given BID [facility] Glucagon 1 mg 11/30/24 16:34 Glucagon For Inj 1 Mg Vial IM PRN PRN Hypoglycemia Protocol Glucose 15 gm 11/30/24 16:34 Glucose Oral Gel 15 Gm Of Glucse In 37.5 Gm Tube PO PRN PRN Hypoglycemia Protocol Hydralazine HCl 50 mg 11/26/24 17:00 11/30/24 12:49 Hydralazine Hcl 50 Mg Tablet PO Not Given TID [facility] Hydralazine HCl 10 mg 12/04/24 09:10 12/05/24 08:55 Hydralazine Hcl 20 Mg/Ml Vial IV PUSH 10 mg TID LILIAN Administration Albumin Human 50 mls @ 999 mls/hr 11/27/24 06:51 Albutein IVPB 12/27/24 06:50 Q10M PRN HYPOTENSION Ibuprofen 800 mg in 200 mls @ 400 mls/hr 11/29/24 17:35 11/30/24 21:19 Caldolor 800 Mg/200 Ml IVPB Infused Q6H PRN Infusion Breakthrough Pain Rated 1-3 or NPO Cefepime HCl 1 gm in 50 mls @ 100 mls/hr 11/30/24 18:00 12/04/24 17:17 Maxipime 1 Gm/Ns 50 Ml IVPB 100 mls/hr DAILY@1800 LILIAN Administration Metronidazole 500 mg in 100 mls @ 100 mls/hr 11/30/24 14:00 12/05/24 05:15 Flagyl 500 Mg/Iso Soln 100 Ml IVPB 100 mls/hr Q8H LILIAN Administration Dextrose 1,000 mls @ 100 mls/hr 11/30/24 16:34 Dextrose 5% 1,000 Ml IVPB PRN PRN Hypoglycemia Protocol Dextrose 1,000 mls @ 50 mls/hr 12/03/24 12:25 Dextrose 10% IV CONT .Q20H PRN if PN is interrupted Amino Acids/Electrolytes/Dextrose 1,000 mls @ 80 mls/hr 12/03/24 15:00 12/05/24 08:56 Clinimix E 4.25%/5% Solution IV CONT Not Given .[id number] [facility] Protocol Fat Emulsion Intravenous 250 mls @ 20.833 mls/hr 12/05/24 09:00 12/05/24 08:54 Lipids 20% IVPB 20.83 mls/hr Q24H LILIAN Administration Insulin Aspart 2 - 5 units 12/01/24 00:00 12/05/24 06:14 Insulin Aspart (*Bkc) 100 Units/Ml SUB-Q Not Given Q6HR [facility] Protocol Naloxone HCl 0.1 mg 11/29/24 17:35 Naloxone Hcl 0.4 Mg/Ml Vial IV PUSH Q2M PRN Opiate Reversal Ondansetron HCl 4 mg 11/26/24 14:10 12/05/24 04:51 Ondansetron Inj 4 Mg/2 Ml Vial IV PUSH 4 mg Q4H PRN Administration Nausea Oxycodone/Acetaminophen 0.5 tablet 11/29/24 17:35 Oxycodone/Acetaminophen (*Crx) 5-325 Mg Tablet PO Q4H PRN Pain Rated 4-6 Pantoprazole Sodium 40 mg 12/02/24 12:00 12/05/24 08:02 Pantoprazole 40 Mg Tablet PO Not Given QAM LILIAN Polyethylene Glycol 17 gm 11/30/24 09:00 11/30/24 08:29 Polyethylene Glycol 3350 17 Gm Powd.Pack PO 17 gm QAM LILIAN Administration Senna/Docusate Sodium 2 tab 11/29/24 21:00 11/29/24 20:29 Senna/Docusate Sodium Tablet PO 2 tab HS LILIAN Administration Vancomycin HCl 1 each 11/26/24 13:16 Vancomycin For Hemodialysis IVPB PRN PRN Vancomycin Protocol Radiology Results: ITS Impressions Foot X-Ray 11/26/24 12:58 Impression: 1: Moderate soft tissue swelling of the second digit. The distal phalanx not well visualized. Cannot exclude osteomyelitis. 2: Extra-articular fracture left fifth proximal phalanx. Duplex Scan Lower Extremity Artery 11/26/24 13:53 IMPRESSION: 1. No evident hemodynamically significant stenosis either by follow-up elevation of peak systolic velocities or by direct visualization grayscale imaging with brisk systolic upstrokes arteries of the bilateral lower limbs. Head CT 11/30/24 12:22 IMPRESSION: 1. . 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 No acute intracranial process. 2. Age-related changes including mild diffuse volume loss and moderate scattered white matter hypoattenuation consistent with chronic small vessel ischemic d isease. Chest X-Ray 11/30/24 12:37 IMPRESSION: 1. Opacities in the right mid and lower lung zones which could represent atelectasis, aspiration and/or pneumonia. 2. Small right pleural effusion. Modified Barium Swallow 12/03/24 12:12 IMPRESSION: Pharyngeal dysphagia with laryngeal penetration and aspiration. Please correlate with speech pathologist findings and specific feeding recommendations. Labs Labs: Laboratory Results - last 24 hr 12/04/24 12/04/24 12/05/24 12:31 17:13 00:14 WBC RBC Hgb Hct MCV MCH MCHC RDW Plt Count MPV Immature Gran % (Auto) Neut % (Auto) Lymph % (Auto) Dunn % (Auto) Eos % (Auto) Baso % (Auto) Lymph # (Auto) Dunn # (Auto) Eos # (Auto) Baso # (Auto) Abs Immat Gran (auto) Absolute Neuts (auto) Absolute Nucleated RBC Nucleated RBC % Sodium Potassium Chloride Carbon Dioxide Anion Gap BUN Creatinine Estim Creat Clear Calc Estimated GFR Glucose POC Capillary Glucose 182 H 149 H 115 H Calcium Phosphorus Albumin 12/05/24 05:38 WBC 16.2 H RBC 2.79 L Hgb 8.1 L Hct 25.8 L MCV 92.5 MCH 29.0 MCHC 31.4 L RDW 14.6 H Plt Count 252 MPV 10.7 H Immature Gran % (Auto) 1.8 H Neut % (Auto) 83.5 H Lymph % (Auto) 5.9 L Dunn % (Auto) 7.0 Eos % (Auto) 1.4 Baso % (Auto) 0.4 Lymph # (Auto) 0.95 Dunn # (Auto) 1.1 H Eos # (Auto) 0.2 Baso # (Auto) 0.1 Abs Immat Gran (auto) 0.29 H Absolute Neuts (auto) 13.6 H Absolute Nucleated RBC 0.000 Nucleated RBC % 0.0 Sodium 139 Potassium 4.2 Chloride 104 Carbon Dioxide 22 Anion Gap 13 H BUN 48 H D Creatinine 6.34 H Estim Creat Clear Calc 13 Estimated GFR 9 L Glucose 147 H POC Capillary Glucose Calcium 8.1 L Phosphorus 5.2 H Albumin 2.8 L Quality VTE Prophylaxis VTE prophylaxis: mechanical ordered -Patient's previous records reviewed on admission -ER notes reviewed in detail on admission -discussed all findings and current treatment plan with patient/Family/POA -Consultations reviewed for recommendations -Patient's disposition for safe discharge discussed with manager of case management Dictation performed by [employer] direct speech recognition software, therefore communications specialist variants and typographical errors may occur. Hospitalist MIPS Advance Care Plan I have confirmed that the patient's Advanced Care Plan is present, code status is documented, or surrogate decision maker is listed in patient medical record.: Yes Medication Reconciliation I have utilized all available resources to obtain, update and review the pat ients current medications (includes all prescriptions, OTC, herbals, cannabis, and nutritional supplements).: Yes The patient is not eligible for med reconciliation; the patient is in a emergent medical situation where delaying treatment would jeopardize the patients health.: No
[2024-12-05 14:20] LABS: Glucose Point of Care 126 mg/dl (65-105)
[2024-12-05] MEDS: CEFEPIME 1 GM/NS 50 ML 1 GM/50 ML BAG IVPB (16:42)
[2024-12-05 17:43] LABS: Glucose Point of Care 133 mg/dl (65-105)
[2024-12-06] VITALS (27 sets, daily range): BP systolic 149–192; BP diastolic 69–92; PULSE 61–82; RESP 18–20; TEMP 36.1–37.7; O2SAT 93–100
[2024-12-06 00:15] LABS: Glucose Point of Care 108 mg/dl (65-105)
[2024-12-06] MEDS: metroNIDAZOLE 500 MG/ISO 100ML 500 MG/100 ML BAG 100 MG IVPB ×2 (05:15→13:53)
[2024-12-06 05:20] LABS: Basophils Absolute Auto 0.1 K/mm3 (0.0-0.1); Basophils Percent Auto 0.4 % (0.2-1.2); Eosinophils Absolute Auto 0.2 K/mm3 (0-0.3); Eosinophils Percent Auto 1.6 % (0-4.4); Hematocrit 26.8 % (42.0-52.0); Hemoglobin 8.3 g/dL (14.0-18.0); Immature Granulocyte Absolute 0.24 K/mm3 (0.00-0.031); Immature Granulocyte Percent A 1.7 % (0-0.5); Lymphocytes Absolute Auto 0.86 K/mm3 (0.9-3.2); Lymphocytes Percent Auto 6.1 % (18.3-44.2); Mean Corpuscular Hemoglobin 28.8 pg (26-34); Mean Corpuscular Volume 93.1 fl (80-100); Mean Platelet Volume 10.7 fl (7.4-10.4); Monocytes Absolute Auto 0.9 K/mm3 (0.1-0.6); Monocytes Percent Auto 6.4 % (2.6-8.5); Neutrophils Absolute Auto 11.9 K/mm3 (1.3-6.7); Neutrophils Percent Auto 83.8 % (45.5-73.1); Platelet Count Result 287 k/mm3 (150-375); Red Blood Count 2.88 M/mm3 (4.6-6.20); Red Cell Distribution Width 14.8 % (11.5-14.5); White Blood Count 14.2 K/mm3 (4.5-10.0)
[2024-12-06 05:30] LABS: INR 1.3; Prothrombin Time 16.4 Seconds (11.1-14.7)
[2024-12-06 05:31] LABS: Partial Thromboplastin Time 36.1 Seconds (22.3-36.8)
[2024-12-06 05:52] LABS: Albumin Level 2.9 g/dL (3.5-5.1); Anion Gap 14 mmol/L (4-12); Blood Urea Nitrogen 63 mg/dL (9-20); Carbon Dioxide 19 mmol/L (22-30); Chloride 105 mmol/L (98-107); Estimated CRCL calculation 11 ml/min; Estimated Glomerular Filt Rate 8; Glucose 105 mg/dL (65-110); Phosphorus 6.6 mg/dL (2.5-4.5); Potassium 4.5 mmol/L (3.4-5.0); Sodium 138 mmol/L (137-145); Transferrin 82 mg/dL (206-381); Triglycerides 133 mg/dL (<150)
[2024-12-06 07:33] LABS: Glucose Point of Care 109 mg/dl (65-105)
[2024-12-06] MEDS: HEPARIN SODIUM 1,000 UNITS/ML VIAL 1000 UNITS IV PUSH (08:23)
[2024-12-06] MEDS: HEPARIN SODIUM 1,000 UNITS/ML VIAL 500 UNITS IV PUSH ×3 (08:26→10:26)
[2024-12-06] MEDS: ONDANSETRON INJ 4 MG/2 ML VIAL IV PUSH (08:44)
--- NOTE | 2024-12-06 10:18 | P.PNNP_ITS ---
Progress Note: A&P Assessment and Plan (1) End stage renal disease: Code(s): N18.6 - End stage renal disease Status: Chronic Assessment and Plan: * HD yesterday * continue Fri/Fri/Friday dialysis schedule while hospitalized * follow electrolytes, volume status, and clearance * kidney disease due to biopsy proven diabetes and hypertension along with vascular disease (CVA + hyperlipemia) (2) Gangrene of toe of left foot: Code(s): I96 - Gangrene, not elsewhere classified Status: Acute Assessment and Plan: * as noted by clinical exam * Surgery recommendations noted * s/p open transmetatarsal amputation left 2nd toe (11/29) * MRI of left foot results reviewed -- see #4 * likely to need further surgical intervention * on IV antibiotics (3) Cellulitis of left foot: Code(s): L03.116 - Cellulitis of left lower limb Status: Acute Assessment and Plan: * as noted on presentation * likely a complication of diabetes and #2 * on antibiotics (4) Bacteremia: Code(s): R78.81 - Bacteremia Status: Acute Assessment and Plan: * as noted: * blood cultures (11/26): MRSA * blood cultures (11/28): MRSA * blood cultures (12/01): MRSA (1 out of 2 sets) * blood cultures (12/03): Staphylococcus aureus (1 out of 2 sets) * presumably related to #2 and #3 * results of KATLIN noted (12/01): * No evidence of infective endocarditis. The aortic valve is severely calcified with severe aortic stenosis with an ALBINO of 0.9cm2 by planimetry. * on antibiotics * MRI of left foot (12/05) noted: * status post transmetatarsal amputation of the second digit * 2.4 x 1.8 x 3.3 cm peripherally enhancing fluid collection at the second interspace at the level the proximal metatarsal shafts is compatible with abscess * diffuse myositis of the plantar musculature of the foot * no evidence for osteomyelitis or fracture * follow culture data (5) Altered mental status: Code(s): R41.82 - Altered mental status, unspecified Status: Acute Assessment and Plan: * slow improvement noted (if not back to baseline) * initially noted this on morning of 11/30 * testing/evaluation noted at that time: * ABG: pH 7.538, pCO2 35.8, pO2 53.2, HCO3 29.8 * lactic normal; procalcitonin elevated at 6.1; glucose okay * CT of brain: unchanged small old infarcts in the right frontal lobe, abdelrahman, right lentiform nucleus and left thalamus; no acute intracranial process; age-related changes including mild diffuse volume loss and moderate scattered white matter hypoattenuation consistent with chronic small vessel ischemic disease * CXR: opacities in the right mid and lower lung zones which could represent atelectasis, aspiration and/or pneumonia; small right pleural effusion * limiting narcotics as tolerated * continue supportive therapy (6) Aspiration pneumonia: Code(s): J69.0 - Pneumonitis due to inhalation of food and vomit Status: Acute Assessment and Plan: * as suggested by CXR on 11/30 * on antibiotics * viral testing (COVID/RSV/influenza) negative * NPO as failed modified barium swallow x 2 * speech therapy following * started on PPN for nutritional support * may need PEG... * follow respiratory status (7) Anemia: Code(s): D64.9 - Anemia, unspecified Status: Chronic Assessment and Plan: * due to ESRD with worsening due to acute illness/infection * follow trend of H/H * Epogen with HD (8) Heart failure with preserved ejection fraction: Qualifiers: Heart failure chronicity: unspecified Qualified Code(s): I50.30 - Unspecified diastolic (congestive) heart failure Code(s): I50.30 - Unspecified diastolic (congestive) heart failure Status: Chronic Assessment and Plan: * appears compensated * fluid removal with dialysis to maintain euvolemia * contineu supportive therapy (9) Hypertension: Qualifiers: Hypertension type: unspecified Qualified Code(s): I10 - Essential (primary) hypertension Code(s): I10 - Essential (primary) hypertension Status: Chronic Assessment and Plan: * reasonable control at this time * known history of poor control at baseline * follow trend of hemodynamics (10) Diabetes: Qualifiers: Diabetes mellitus type: type 2 Diabetes mellitus prison insulin use: without prison use Diabetes mellitus complication status: with kidney complications Diabetes mellitus complication detail: with chronic kidney disease Chronic kidney disease stage: on chronic dialysis Qualified Code(s): E11.22 - Type 2 diabetes mellitus with diabetic chronic kidney disease; N18.6 - End stage renal disease; Z99.2 - Dependence on renal dialysis Code(s): E11.9 - Type 2 diabetes mellitus without complications Status: Chronic Assessment and Plan: * follow accu-cheks * glycemic control per hospitalists Will continue to follow. Subjective Date/time seen: 12/06/24 10:18 Interval history: Follow-up for end stage renal disease on hemodialysis. Tolerating dialysis treatment at the time of my visit (seen on HD at 10:05AM); results of MRI of left foot yesterday noted; no apparent distress noted when seen; no complaints of pain or discomfort when seen; no issues/events overnight or earlier this morning. Exam Narrative: General: WD/WN male in NAD Heart: normal S1 and S2; no rub Lungs: clear anteriorly Abdomen: soft, nontender, nondistended, positive bowel sounds Extremities: no cyanosis or clubbing; + edema left foot Skin: left foot erythema around operative site Objective Data Vital Signs Vital Signs: Vital Signs Temp Pulse Resp BP Pulse Ox O2 Del Method 12/06/24 11:45 67 168/85 H 12/06/24 11:30 66 169/82 H 12/06/24 11:15 64 166/80 H 12/06/24 11:00 63 174/80 H 12/06/24 10:45 64 174/82 H 12/06/24 10:30 65 178/85 H 12/06/24 10:15 63 171/87 H 12/06/24 10:00 64 167/82 H 12/06/24 09:45 62 171/83 H 12/06/24 09:30 61 161/80 H 12/06/24 09:15 63 168/83 H 12/06/24 09:00 63 178/87 H 12/06/24 08:45 66 192/92 H 12/06/24 08:30 65 171/90 H 12/06/24 08:26 64 163/80 H 12/06/24 08:06 97.5 F L 65 18 171/83 H 100 12/06/24 08:00 62 12/06/24 08:00 62 18 100 Room Air 12/06/24 05:45 98.9 F 65 18 149/69 H 99 12/06/24 04:00 62 12/06/24 00:00 63 12/05/24 22:29 97.9 F 94 18 132/64 99 12/05/24 20:00 63 12/05/24 20:00 Room Air 12/05/24 16:00 61 12/05/24 15:38 97.5 F L 62 16 142/65 H 97 Intake/Output Intake/Output: Intake & Output 12/03/24 12/04/24 12/05/24 12/06/24 23:59 23:59 23:59 23:59 Intake Total 1930.0 1600 1300 Output Total 2000 200 100 100 Balance -70.0 1400 1200 -100 Meds/Results Medications: Active Medications Generic Name Dose Route Start Last Admin Trade Name Rikq PRN Reason Stop Dose Admin Amlodipine Besylate 10 mg 11/27/24 09:00 11/30/24 08:30 Amlodipine Besylate 10 Mg Tablet PO 10 mg DAILY [facility] Administration Atorvastatin Calcium 80 mg 11/27/24 09:00 12/01/24 11:36 Atorvastatin 40 Mg Tablet PO Not Given DAILY [facility] Carvedilol 25 mg 11/26/24 21:00 11/30/24 08:29 Carvedilol 25 Mg Tablet PO 25 mg Q12HR LILIAN Administration Clopidogrel Bisulfate 75 mg 11/27/24 09:00 12/06/24 09:32 Clopidogrel Bisulfate 75 Mg Tablet PO Not Given DAILY [facility] Collagenase 1 applic 12/03/24 21:00 12/06/24 04:29 Collagenase Oint 30 Gm Tube TOPICAL Not Given Q12HR [facility] Dextrose 12.5 gm 11/30/24 16:34 Dextrose 50% 25 Gm/50 Ml Syringe IV PUSH PRN PRN Hypoglycemia Protocol Docusate Sodium 100 mg 11/26/24 17:00 11/30/24 17:21 Docusate Sodium 100 Mg Capsule PO Not Given BID [facility] Epoetin Romain-epbx 20,000 units 12/06/24 18:25 12/06/24 10:37 Epoetin Romain-Epbx 20,000 Units/Ml Vial IV PUSH 12/06/24 18:26 20,000 units ONCE ONE Administration Glucagon 1 mg 11/30/24 16:34 Glucagon For Inj 1 Mg Vial IM PRN PRN Hypoglycemia Protocol Glucose 15 gm 11/30/24 16:34 Glucose Oral Gel 15 Gm Of Glucse In 37.5 Gm Tube PO PRN PRN Hypoglycemia Protocol Hydralazine HCl 50 mg 11/26/24 17:00 11/30/24 12:49 Hydralazine Hcl 50 Mg Tablet PO Not Given TID LILIAN Hydralazine HCl 10 mg 12/04/24 09:10 12/06/24 09:32 Hydralazine Hcl 20 Mg/Ml Vial IV PUSH Not Given TID LILIAN Albumin Human 50 mls @ 999 mls/hr 11/27/24 06:51 Albutein IVPB 12/27/24 06:50 Q10M PRN HYPOTENSION Ibuprofen 800 mg in 200 mls @ 400 mls/hr 11/29/24 17:35 11/30/24 21:19 Caldolor 800 Mg/200 Ml IVPB Infused Q6H PRN Infusion Breakthrough Pain Rated 1-3 or NPO Cefepime HCl 1 gm in 50 mls @ 100 mls/hr 11/30/24 18:00 12/05/24 16:42 Maxipime 1 Gm/Ns 50 Ml IVPB 100 mls/hr DAILY@1800 LILIAN Administration Metronidazole 500 mg in 100 mls @ 100 mls/hr 11/30/24 14:00 12/06/24 05:15 Flagyl 500 Mg/Iso Soln 100 Ml IVPB 100 mls/hr Q8H LILIAN Administration Dextrose 1,000 mls @ 100 mls/hr 11/30/24 16:34 Dextrose 5% 1,000 Ml IVPB PRN PRN Hypoglycemia Protocol Dextrose 1,000 mls @ 50 mls/hr 12/03/24 12:25 Dextrose 10% IV CONT .Q20H PRN if PN is interrupted Amino Acids/Electrolytes/Dextrose 1,000 mls @ 80 mls/hr 12/03/24 15:00 12/06/24 09:31 Clinimix E 4.25%/5% Solution IV CONT Not Given .[id number] LILIAN Protocol Fat Emulsion Intravenous 250 mls @ 20.833 mls/hr 12/05/24 09:00 12/05/24 08:54 Lipids 20% IVPB 20.83 mls/hr Q24H LILIAN Administration Vancomycin HCl 750 mg in 250 mls @ 250 mls/hr 12/06/24 18:00 Vancomycin 750 Mg/Ns 250 Ml IVPB 12/06/24 18:59 ONCE ONE Insulin Aspart 2 - 5 units 12/01/24 00:00 12/06/24 09:31 Insulin Aspart (*Bkc) 100 Units/Ml SUB-Q Not Given Q6HR [facility] Protocol Naloxone HCl 0.1 mg 11/29/24 17:35 Naloxone Hcl 0.4 Mg/Ml Vial IV PUSH Q2M PRN Opiate Reversal Ondansetron HCl 4 mg 11/26/24 14:10 12/06/24 08:44 Ondansetron Inj 4 Mg/2 Ml Vial IV PUSH 4 mg Q4H PRN Administration Nausea Oxycodone/Acetaminophen 0.5 tablet 11/29/24 17:35 Oxycodone/Acetaminophen (*Crx) 5-325 Mg Tablet PO Q4H PRN Pain Rated 4-6 Pantoprazole Sodium 40 mg 12/02/24 12:00 12/06/24 09:33 Pantoprazole 40 Mg Tablet PO Not Given QAM ILLIAN Polyethylene Glycol 17 gm 11/30/24 09:00 11/30/24 08:29 Polyethylene Glycol 3350 17 Gm Powd.Pack PO 17 gm QAM LILIAN Administration Senna/Docusate Sodium 2 tab 11/29/24 21:00 11/29/24 20:29 Senna/Docusate Sodium Tablet PO 2 tab HS LILIAN Administration Vancomycin HCl 1 each 11/26/24 13:16 Vancomycin For Hemodialysis IVPB PRN PRN Vancomycin Protocol Radiology Results: ITS Impressions Foot X-Ray 11/26/24 12:58 Impression: 1: Moderate soft tissue swelling of the second digit. The distal phalanx not well visualized. Cannot exclude osteomyelitis. 2: Extra-articular fracture left fifth proximal phalanx. Duplex Scan Lower Extremity Artery 11/26/24 13:53 IMPRESSION: 1. No evident hemodynamically significant stenosis either by follow-up elevation of peak systolic velocities or by direct visualization grayscale imaging with brisk systolic upstrokes arteries of the bilateral lower limbs. Head CT 11/30/24 12:22 IMPRESSION: 1. . 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 No acute intracranial process. 2. Age-related changes including mild diffuse volume loss and moderate scattered white matter hypoattenuation consistent with chronic small vessel ischemic disease. Chest X-Ray 11/30/24 12:37 IMPRESSION: 1. Opacities in the right mid and lower lung zones which could represent atelectasis, aspiration and/or pneumonia. 2. Small right pleural effusion. Modified Barium Swallow 12/03/24 12:12 IMPRESSION: Pharyngeal dysphagia with laryngeal penetration and aspiration. Please correlate with speech pathologist findings and specific feeding recommendations. Foot MRI 12/05/24 13:43 IMPRESSION: Status post transmetatarsal amputation of the second digit. 2.4 x 1.8 x 3.3 cm peripherally enhancing fluid collection at the second interspace at the level the proximal metatarsal shafts is compatible with abscess. Diffuse myositis of the plantar musculature of the foot. No evidence for osteomyelitis or fracture. Susceptibility artifact at the operative bed and dorsal soft tissues at the second digit region could reflect artifact and/or open soft tissue wound. Correlate with physical exam. Labs Labs: Vital Signs Temp Pulse Resp BP Pulse Ox O2 Del Method 12/06/24 10:15 63 171/87 H 12/06/24 10:00 64 167/82 H 12/06/24 09:45 62 171/83 H 12/06/24 09:30 61 161/80 H 12/06/24 09:15 63 168/83 H 12/06/24 09:00 63 178/87 H 12/06/24 08:45 66 192/92 H 12/06/24 08:30 65 171/90 H 12/06/24 08:26 64 163/80 H 12/06/24 08:06 97.5 F L 65 18 171/83 H 100 12/06/24 08:00 62 12/06/24 08:00 62 18 100 Room Air 12/06/24 05:45 98.9 F 65 18 149/69 H 99 12/06/24 04:00 62 12/06/24 00:00 63 12/05/24 22:29 97.9 F 94 18 132/64 99 12/05/24 20:00 63 12/05/24 20:00 Room Air 12/05/24 16:00 61 12/05/24 15:38 97.5 F L 62 16 142/65 H 97
[2024-12-06] MEDS: EPOETIN ALFA-EPBX 20,000 UNITS/ML VIAL 20000 UNITS IV PUSH (10:37)
--- NOTE | 2024-12-06 11:38 | PCNFU ---
Nutrition Follow-Up Complete: Swallowing Difficulties as related to Dysphagia as evidenced by NPO. Goal: Meet estimated nutritional needs Patient will continue current goal. Pt current nutrition is Clinimix E 4.25/5 at 80 ml/hr. Last recorded weight is 96.7 kg, up from 86.8 kg on admit. Bowel Motility: Last reported BM 12/06 Labs Reviewed: BUN 63, Cr 7.52, PO4 6.6 Meds Noted:Colace, Miralax,, NovoLog, Senokot, Clinimix E 4.25/5 at 80 ml/hr with 250 ml of 20% Lipid Emulsion. Skin: WNL Additional Notes: Patient remains on a PPN. Spoke with Hospitalist today, patient is Dialysis today. Plans for surgery on foot later today. MBS is scheduled for 12/07. We will continue current PPN providing 1153 kcal/82 gm protein. Will monitor weight, labs, skin, diet orders, meds every Friday and Friday.
--- NOTE | 2024-12-06 11:47 | PCSTNOTE ---
ST treatment attempted but patient in dialysis.
[2024-12-06] MEDS: FAT EMULSIONS IV 20% 250 ML 20.83 ML IVPB (12:37)
[2024-12-06] MEDS: COLLAGENASE OINT 30 GM TUBE 1 APPLIC TOPICAL (12:37)
[2024-12-06 13:12] LABS: Glucose Point of Care 89 mg/dl (65-105)
[2024-12-06] MEDS: hydrALAZINE HCL 20 MG/ML VIAL 10 MG IV PUSH ×2 (13:53→16:53)
--- NOTE | 2024-12-06 14:08 | P.PNIM_ITS ---
Progress Note: A&P Assessment and Plan (1) Bacteremia: Code(s): R78.81 - Bacteremia Status: Acute Assessment and Plan: Blood cultures obtained 11/26: staph aureus, Echo LVEF 60-65% with abnormal diastolic function and an abnormal appearing aortic valve that is heavily calcified and has at least moderate stenosis. KATLIN completed today with Dr Michelle: KATLIN negative for infective endocarditis. KATLIN shows severe aortic stenosis with ALBINO of 0.9cm2. Will arrange outpatient follow up for his valvular disease. Avoid hypotension Patient is follow up culture x1 bottle on 12/01/2024 still remains positive with Staphylococcus aureus follow-up cultures from 12/03 positive need source control will likely need further surgical intervention noted by surgery that there was some necrotic tissue superficial to the tendon. Base of the wound no granulation tissue and quite a bit of slough. Surgery spoke with patient and family regarding the need for amputation with List Oliver of the left foot to preserve the heel verses a left below-knee amputation which is a real possible since the wound is non-healing and we need source control MRI Results: Status post transmetatarsal amputation of the second digit. 2.4 x 1.8 x 3.3 cm peripherally enhancing fluid collection at the second interspace at the level the proximal metatarsal shafts is compatible with abscess. Diffuse myositis of the plantar musculature of the foot. No evidence for osteomyelitis or fracture. Susceptibility artifact at the operative bed and dorsal soft tissues at the second digit region could reflect artifact and/or open soft tissue wound. Correlate with physical exam. * Patient remains on vancomycin per Sensitivities * Repeat cultures * will repeat blood cultures once follow-up surgery is completed (2) Diabetic infection of left foot: Code(s): E11.628 - Type 2 diabetes mellitus with other skin complications; L08.9 - Local infection of the skin and subcutaneous tissue, unspecified Status: Acute Assessment and Plan: Erythema and edema to the dorsal aspect of the left foot extending to the ankle. Unable to palpate DP pulses. Black foul smelling 2nd toe of the left foot. Foot XR left showed moderate soft tissue swelling of the second digit with poor visualization fo the distal phalanx. Osteomyelitis cannot be rule out. Also extra articular fracture to the left fifth proximal phalanx, Duplex showed No evident hemodynamically significant stenosis either by follow-up elevation of peak systolic velocities or by direct visualization grayscale imaging with brisk systolic upstrokes arteries of the bilateral lower limbs. * continue with IV cefepime, Flagyl and vancomycin * Surgery consulted and performed a s/p open transmetatarsal amputation left 2nd toe on 11/[address] Goodson * MRI Pending may need further surgical intervention currently patient is not exhibiting his bacteremia * Dressing changes per surgery SEE ABOVE #1 (3) Gangrenous toe: Code(s): I96 - Gangrene, not elsewhere classified Status: Acute Assessment and Plan: See plan above (4) Aspiration pneumonia: Code(s): J69.0 - Pneumonitis due to inhalation of food and vomit Status: Acute Assessment and Plan: Per patient son, the patient has been coughing with meals for a few months. CXR: Opacities in the right mid and lower lung zones which could represent atelectasis, aspiration and/or pneumonia. Small right pleural effusion. Patient continues to fail modified barium swallow at this time will initiate PPN do not want to place a PICC quite yet due to patient's bacteremia that is not clearing but likely is going to be necessary not only to initiate TPN med as well for long-term IV antibiotic therapy. Will continue with PPN/TPN and plan on follow-up MBS in a few days will need to discuss with family about placing PEG tube but still once again have some reservation due to patient's continued bacteremia * NPO * started PPN * F/U MBS scheduled tomorrow 12/06 if patient fails again already spoke with family regarding the need for PEG tube placement * Speech therapy following. * Follow WBC, serum electrolytes, temperature curves and cultures * continue with current IV antibiotics (5) Aortic stenosis: Code(s): I35.0 - Nonrheumatic aortic (valve) stenosis Status: Acute Assessment and Plan: Echo ordered to rule out endocarditis LVEF 60-65% with abnormal diastolic function and an abnormal appearing aortic valve that is heavily calcified and has at least moderate stenosis. * Recommend cardiology follow up outpatient. (6) Type 2 diabetes mellitus: Code(s): E11.9 - Type 2 diabetes mellitus without complications Status: Acute Assessment and Plan: * hypoglycemia protocol * POC blood glucose Q6hr * correct regimen ordered - low dose TIDWM currently on dextrose 5 can no home medication * A1C 5.9 in desired range (7) Anemia: Code(s): D64.9 - Anemia, unspecified Status: Chronic Assessment and Plan: Chronic, likely secondary to ESRD * Given epoetin 10,000 units x1 on 11/27 * No signs of active bleeding * Monitor H&H Tranfuse of hgb <7.0 (8) Carotid artery disease: Qualifiers: Carotid artery disease type: stenosis Laterality: unspecified laterality Qualified Code(s): I65.29 - Occlusion and stenosis of unspecified carotid artery Code(s): I77.9 - Disorder of arteries and arterioles, unspecified Status: Chronic Assessment and Plan: * Continue Plavix post surgery (9) Hypertension: Qualifiers: Hypertension type: unspecified Qualified Code(s): I10 - Essential (primary) hypertension Code(s): I10 - Essential (primary) hypertension Status: Chronic Assessment and Plan: * continued amlodipine 10 mg daily, coreg 25 mg BID, hydralazine 50 mg TID placed on hold due to patient NPO * hydralazine 10 mg IV PRN * blood pressures stable, continue to monitor L (10) End stage renal disease on dialysis: Code(s): N18.6 - End stage renal disease; Z99.2 - Dependence on renal dialysis Status: Acute Assessment and Plan: * ESRD on dialysis MWF * Nephrology consulted * avoid nephrotoxic medications * pharmacy to dose antibiotic (11) Heart failure with preserved ejection fraction: Qualifiers: Heart failure chronicity: unspecified Qualified Code(s): I50.30 - Unspecified diastolic (congestive) heart failure Code(s): I50.30 - Unspecified diastolic (congestive) heart failure Status: Chronic Assessment and Plan: Chronic, does not appear in acute exacerbation, Echo 07/2023 showed LVEF 40-45% with grade 2 diastolic dysfunction Echo ordered to rule out endocarditis LVEF 60-65% with abnormal diastolic function and an abnormal appearing aortic valve that is heavily calcified and has at least moderate stenosis. * Plan to follow up with primary quality coordinator outpatient * monitor for fluid overload likely dialysis will assist * daily weights (12) Encephalopathy: Code(s): G93.40 - Encephalopathy, unspecified Status: Acute Assessment and Plan: On 11/30/2024: Severely lethargic with a right side lean and associated right gaze. His voice was increasingly garbled and his responses were slow. Remained AOx3 with otherwise benign neuro exam. Likely metabolic vs drug induced (received morphine overnight) encephalopathy. 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 No acute intracranial process. Age-related changes including mild diffuse volume loss and moderate scattered white matter hypoattenuation consistent with chronic small vessel ischemic disease. Mental status improving patient with flat affect. - Morphine was discontinued - ABG: pH 7.538, pCO2 35.8, pO2 53.2, HCO3 29.8. Started on 2L NC for hypoxemia. - Lactic WNL. Procal elevated at 6.1. Glucose WNL. Plan Code status: Full code per patient DVT prophylaxis: Scd Stress ulcer prophylaxis: Protonix 40 daily PT/OT notes: Pending Disposition: patient continues admission for treatment necrotic left toe with amputation and bacteremia for set of cultures are pending for clearance will continue with current treatment plan patient failed his MBS again initiated on PPN some concern placing PICC due to continued bacteremia that is clearing need source control likely need further surgical intervention if continues through have positive blood cultures hopefully we can get some clearance of his bacteremia prior to having to place a PICC or PEG tube because he is likely goi ng to need long-term IV antibiotics. will attempt another MBS tomorrow and if patient is still aspirating will discuss with family the need for PEG tube. Time Spent With Patient Time with patient: 15 - 25 minutes Subjective Date/time seen: 12/06/24 14:08 Interval history: 59 year old male with past medical history of HTN, CAD, CVA, CHF, and ESRD on dialysis presents to the hospital with complaint of a black left toe. 12/06/2024: Patient alert and awake, seen in dialysis examined wound with necrotic outer edges of wound bed, erythema and swelling with slough. Patient with N/V during visit but improved with medication tolerating his dialysis otherwise. spoke to surgery regarding follow-up surgery. MRI foot did not show osteomyelitis. Review of Systems Review of Systems: 12 systems were reviewed and are negativ e except for as per HPI. All systems reviewed & are unremarkable except as noted in HPI and below Exam Narrative: General: NAD male lying in bed HEENT: Normocephalic. Chest: Clear to auscultation throughout CV: RRR Abd: Abdomen was soft. N/V noted during assessment Ext: LT foot wound second metatarsal noticeable necrotic tissue around the wound bed with erythema, and moderate slough. Left upper arm fistula Neuro: Patient remains AOx3 on assessment, slow to respond with mild slurred speech family reported at baseline Psych: Flat affect Objective Data Vital Signs Vital Signs: Vital Signs - 24 hr 12/05/24 15:38 12/05/24 16:00 12/05/24 20:00 Temperature 97.5 F L Pulse Rate 62 61 Respiratory Rate 16 Blood Pressure 142/65 H Pulse Oximetry 97 Oxygen Delivery Room Air 12/05/24 20:00 12/05/24 22:29 12/06/24 00:00 Temperature 97.9 F Pulse Rate 63 94 63 Respiratory Rate 18 Blood Pressure 132/64 Pulse Oximetry 99 Oxygen Delivery 12/06/24 04:00 12/06/24 05:45 12/06/24 08:00 Temperature 98.9 F Pulse Rate 62 65 62 Respiratory Rate 18 18 Blood Pressure 149/69 H Pulse Oximetry 99 100 Oxygen Delivery Room Air 12/06/24 08:00 12/06/24 08:06 12/06/24 08:26 Temperature 97.5 F L Pulse Rate 62 65 64 Respiratory Rate 18 Blood Pressure 171/83 H 163/80 H Pulse Oximetry 100 Oxygen Delivery 12/06/24 08:30 12/06/24 08:45 12/06/24 09:00 Temperature Pulse Rate 65 66 63 Respiratory Rate Blood Pressure 171/90 H 192/92 H 178/87 H Pulse Oximetry Oxygen Delivery 12/06/24 09:15 12/06/24 09:30 12/06/24 09:45 Temperature Pulse Rate 63 61 62 Respiratory Rate Blood Pressure 168/83 H 161/80 H 171/83 H Pulse Oximetry Oxygen Delivery 12/06/24 10:00 12/06/24 10:15 12/06/24 10:30 Temperature Pulse Rate 64 63 65 Respiratory Rate Blood Pressure 167/82 H 171/87 H 178/85 H Pulse Oximetry Oxygen Delivery 12/06/24 10:45 12/06/24 11:00 12/06/24 11:15 Temperature Pulse Rate 64 63 64 Respiratory Rate Blood Pressure 174/82 H 174/80 H 166/80 H Pulse Oximetry Oxygen Delivery 12/06/24 11:30 12/06/24 11:45 12/06/24 11:56 Temperature Pulse Rate 66 67 67 Respiratory Rate Blood Pressure 169/82 H 168/85 H 167/85 H Pulse Oximetry Oxygen Delivery 12/06/24 12:00 Temperature 97.9 F Pulse Rate 67 Respiratory Rate 20 Blood Pressure 169/76 H Pulse Oximetry 100 Oxygen Delivery Intake/Output Intake/Output: Intake & Output 12/03/24 12/04/24 12/05/24 12/06/24 23:59 23:59 23:59 23:59 Intake Total 1930.0 1600 1550 100 Output Total 1999 778 001 0409 Balance -70.0 1400 1450 -3000 Meds/Results Medications: Active Medications Generic Name Dose Route Start Last Admin Trade Name Adrianne PRN Reason Stop Dose Admin Amlodipine Besylate 10 mg 11/27/24 09:00 11/30/24 08:30 Amlodipine Besylate 10 Mg Tablet PO 10 mg DAILY LILIAN Administration Atorvastatin Calcium 80 mg 11/27/24 09:00 12/01/24 11:36 Atorvastatin 40 Mg Tablet PO Not Given DAILY [facility] Carvedilol 25 mg 11/26/24 21:00 11/30/24 08:29 Carvedilol 25 Mg Tablet PO 25 mg Q12HR LILIAN Administration Clopidogrel Bisulfate 75 mg 11/27/24 09:00 12/06/24 09:32 Clopidogrel Bisulfate 75 Mg Tablet PO Not Given DAILY LILIAN Collagenase 1 applic 12/03/24 21:00 12/06/24 12:37 Collagenase Oint 30 Gm Tube TOPICAL 1 applic Q12HR LILIAN Administration Dextrose 12.5 gm 11/30/24 16:34 Dextrose 50% 25 Gm/50 Ml Syringe IV PUSH PRN PRN Hypoglycemia Protocol Docusate Sodium 100 mg 11/26/24 17:00 11/30/24 17:21 Docusate Sodium 100 Mg Capsule PO Not Given BID [facility] Epoetin Romain-epbx 20,000 units 12/06/24 18:25 12/06/24 10:37 Epoetin Romain-Epbx 20,000 Units/Ml Vial IV PUSH 12/06/24 18:26 20,000 units ONCE ONE Administration Glucagon 1 mg 11/30/24 16:34 Glucagon For Inj 1 Mg Vial IM PRN PRN Hypoglycemia Protocol Glucose 15 gm 11/30/24 16:34 Glucose Oral Gel 15 Gm Of Glucse In 37.5 Gm Tube PO PRN PRN Hypoglycemia Protocol Hydralazine HCl 50 mg 11/26/24 17:00 11/30/24 12:49 Hydralazine Hcl 50 Mg Tablet PO Not Given TID [facility] Hydralazine HCl 10 mg 12/04/24 09:10 12/06/24 13:53 Hydralazine Hcl 20 Mg/Ml Vial IV PUSH 10 mg TID LILIAN Administration Albumin Human 50 mls @ 999 mls/hr 11/27/24 06:51 Albutein IVPB 12/27/24 06:50 Q10M PRN HYPOTENSION Ibuprofen 800 mg in 200 mls @ 400 mls/hr 11/29/24 17:35 11/30/24 21:19 Caldolor 800 Mg/200 Ml IVPB Infused Q6H PRN Infusion Breakthrough Pain Rated 1-3 or NPO Cefepime HCl 1 gm in 50 mls @ 100 mls/hr 11/30/24 18:00 12/05/24 16:42 Maxipime 1 Gm/Ns 50 Ml IVPB 100 mls/hr DAILY@1800 LILIAN Administration Metronidazole 500 mg in 100 mls @ 100 mls/hr 11/30/24 14:00 12/06/24 13:53 Flagyl 500 Mg/Iso Soln 100 Ml IVPB 100 mls/hr Q8H LILIAN Administration Dextrose 1,000 mls @ 100 mls/hr 11/30/24 16:34 Dextrose 5% 1,000 Ml IVPB PRN PRN Hypoglycemia Protocol Dextrose 1,000 mls @ 50 mls/hr 12/03/24 12:25 Dextrose 10% IV CONT .Q20H PRN if PN is interrupted Amino Acids/Electrolytes/Dextrose 1,000 mls @ 80 mls/hr 12/03/24 15:00 12/06/24 09:31 Clinimix E 4.25%/5% Solution IV CONT Not Given .[id number] LILIAN Protocol Fat Emulsion Intravenous 250 mls @ 20.833 mls/hr 12/05/24 09:00 12/06/24 12:37 Lipids 20% IVPB 20.83 mls/hr Q24H LILIAN Administration Vancomycin HCl 750 mg in 250 mls @ 250 mls/hr 12/06/24 18:00 Vancomycin 750 Mg/Ns 250 Ml IVPB 12/06/24 18:59 ONCE ONE Insulin Aspart 2 - 5 units 12/01/24 00:00 12/06/24 13:50 Insulin Aspart (*Bkc) 100 Units/Ml SUB-Q Not Given Q6HR [facility] Protocol Naloxone HCl 0.1 mg 11/29/24 17:35 Naloxone Hcl 0.4 Mg/Ml Vial IV PUSH Q2M PRN Opiate Reversal Ondansetron HCl 4 mg 11/26/24 14:10 12/06/24 08:44 Ondansetron Inj 4 Mg/2 Ml Vial IV PUSH 4 mg Q4H PRN Administration Nausea Oxycodone/Acetaminophen 0.5 tablet 11/29/24 17:35 Oxycodone/Acetaminophen (*Crx) 5-325 Mg Tablet PO Q4H PRN Pain Rated 4-6 Pantoprazole Sodium 40 mg 12/02/24 12:00 12/06/24 09:33 Pantoprazole 40 Mg Tablet PO Not Given QAM LILIAN Polyethylene Glycol 17 gm 11/30/24 09:00 11/30/24 08:29 Polyethylene Glycol 3350 17 Gm Powd.Pack PO 17 gm QAM LILIAN Administration Senna/Docusate Sodium 2 tab 11/29/24 21:00 11/29/24 20:29 Senna/Docusate Sodium Tablet PO 2 tab HS LILIAN Administration Vancomycin HCl 1 each 11/26/24 13:16 Vancomycin For Hemodialysis IVPB PRN PRN Vancomycin Protocol Radiology Results: ITS Impressions Foot X-Ray 11/26/24 12:58 Impression: 1: Moderate soft tissue swelling of the second digit. The distal phalanx not well visualized. Cannot exclude osteomyelitis. 2: Extra-articular fracture left fifth proximal phalanx. Duplex Scan Lower Extremity Artery 11/26/24 13:53 IMPRESSION: 1. No evident hemodynamically significant stenosis either by follow-up elevation of peak systolic velocities or by direct visualization grayscale imaging with brisk systolic upstrokes arteries of the bilateral lower limbs. Head CT 11/30/24 12:22 IMPRESSION: 1. . 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 No acute intracranial process. 2. Age-related changes including mild diffuse volume loss and moderate scattered white matter hypoattenuation consistent with chronic small vessel ischemic disease. Chest X-Ray 11/30/24 12:37 IMPRESSION: 1. Opacities in the right mid and lower lung zones which could represent atelectasis, aspiration and/or pneumonia. 2. Small right pleural effusion. Modified Barium Swallow 12/03/24 12:12 IMPRESSION: Pharyngeal dysphagia with laryngeal penetration and aspiration. Please correlate with speech pathologist findings and specific feeding recommendations. Foot MRI 12/05/24 13:43 IMPRESSION: Status post transmetatarsal amputation of the second digit. 2.4 x 1.8 x 3.3 cm peripherally enhancing fluid collection at the second interspace at the level the proximal metatarsal shafts is compatible with abscess. Diffuse myositis of the plantar musculature of the foot. No evidence for osteomyelitis or fracture. Susceptibility artifact at the operative bed and dorsal soft tissues at the second digit region could reflect artifact and/or open soft tissue wound. Correlate with physical exam. Labs Labs: Laboratory Results - last 24 hr 12/05/24 12/05/24 12/05/24 14:16 17:40 20:32 WBC RBC Hgb Hct MCV MCH MCHC RDW Plt Count MPV Immature Gran % (Auto) Neut % (Auto) Lymph % (Auto) Giles % (Auto) Eos % (Auto) Baso % (Auto) Lymph # (Auto) Giles # (Auto) Eos # (Auto) Baso # (Auto) Abs Immat Gran (auto) Absolute Neuts (auto) Absolute Nucleated RBC Nucleated RBC % PT INR APTT Sodium Potassium Chloride Carbon Dioxide Anion Gap BUN Creatinine Estim Creat Clear Calc Estimated GFR Glucose POC Capillary Glucose 126 H 133 H 108 H Calcium Phosphorus Transferrin Albumin Triglycerides Vancomycin Trough 12/06/24 12/06/24 12/06/24 05:10 05:11 06:45 WBC 14.2 H RBC 2.88 L Hgb 8.3 L Hct 26.8 L MCV 93.1 MCH 28.8 MCHC 31.0 L RDW 14.8 H Plt Count 287 MPV 10.7 H Immature Gran % (Auto) 1.7 H Neut % (Auto) 83.8 H Lymph % (Auto) 6.1 L Giles % (Auto) 6.4 Eos % (Auto) 1.6 Baso % (Auto) 0.4 Lymph # (Auto) 0.86 L Giles # (Auto) 0.9 H Eos # (Auto) 0.2 Baso # (Auto) 0.1 Abs Immat Gran (auto) 0.24 H Absolute Neuts (auto) 11.9 H Absolute Nucleated RBC 0.000 Nucleated RBC % 0.0 PT 16.4 H INR 1.3 APTT 36.1 Sodium 138 Potassium 4.5 Chloride 105 Carbon Dioxide 19 L Anion Gap 14 H BUN 63 H D Creatinine 7.52 H Estim Creat Clear Calc 11 Estimated GFR 8 L Glucose 105 POC Capillary Glucose 109 H Calcium 8.0 L Phosphorus 6.6 H Transferrin 82 L Albumin 2.9 L Triglycerides 133 Vancomycin Trough 18.0 12/06/24 13:09 WBC RBC Hgb Hct MCV MCH MCHC RDW Plt Count MPV Immature Gran % (Auto) Neut % (Auto) Lymph % (Auto) Giles % (Auto) Eos % (Auto) Baso % (Auto) Lymph # (Auto) Giles # (Auto) Eos # (Auto) Baso # (Auto) Abs Immat Gran (auto) Absolute Neuts (auto) Absolute Nucleated RBC Nucleated RBC % PT INR APTT Sodium Potassium Chloride Carbon Dioxide Anion Gap BUN Creatinine Estim Creat Clear Calc Estimated GFR Glucose POC Capillary Glucose 89 Calcium Phosphorus Transferrin Albumin Triglycerides Vancomycin Trough Quality VTE Prophylaxis VTE prophylaxis: mechanical ordered -Patient's previous records reviewed on admission -ER notes reviewed in detail on admission -discussed all findings and current treatment plan with patient/Family/POA -Consultations reviewed for recommendations -Patient's disposition for safe discharge discussed with outsole caser Dictation performed by [employer] direct speech recognition software, therefore supervisor unloading variants and typographical errors may occur. Hospitalist MIPS Advance Care Plan I have confirmed that the patient's Advanced Care Plan is present, code status is documented, or surrogate decision maker is listed in patient medical record.: Yes Medication Reconciliation I have utilized all available resources to obtain, update and review the patients current medications (includes all prescriptions, OTC, herbals, cannabis , and nutritional supplements).: Yes The patient is not eligible for med reconciliation; the patient is in a emergent medical situation where delaying treatment would jeopardize the patients health.: No
[2024-12-06] MEDS: CEFEPIME 1 GM/NS 50 ML 1 GM/50 ML BAG IVPB (16:52)
[2024-12-06] MEDS: VANCOMYCIN 750 MG/NS 250 ML 750 MG/250 ML BAG 250 MG IVPB (17:30)
[2024-12-06] MEDS: AMINO ACIDS 4.25%/D5W/LYTES/CA 1,000 ML 80 ML IV CONT (17:55)
--- NOTE | 2024-12-06 18:06 | PC.NURSE ---
Pt refused personal care, refused repositioning and refused dressing change at this time.
[2024-12-06 18:07] LABS: Glucose Point of Care 104 mg/dl (65-105)
[2024-12-07] VITALS (9 sets, daily range): BP systolic 165–188; BP diastolic 69–78; PULSE 66–78; RESP 18–20; TEMP 36.6–37.1; O2SAT 95–97
[2024-12-07] MEDS: metroNIDAZOLE 500 MG/ISO 100ML 500 MG/100 ML BAG 100 MG IVPB ×3 (05:41→21:35)
[2024-12-07] MEDS: COLLAGENASE OINT 30 GM TUBE 1 APPLIC TOPICAL ×3 (05:43→21:36)
[2024-12-07 05:51] LABS: Basophils Absolute Auto 0.1 K/mm3 (0.0-0.1); Basophils Percent Auto 0.6 % (0.2-1.2); Eosinophils Absolute Auto 0.1 K/mm3 (0-0.3); Eosinophils Percent Auto 0.9 % (0-4.4); Hematocrit 29.2 % (42.0-52.0); Hemoglobin 8.9 g/dL (14.0-18.0); Immature Granulocyte Absolute 0.33 K/mm3 (0.00-0.031); Immature Granulocyte Percent A 2.6 % (0-0.5); Lymphocytes Absolute Auto 0.88 K/mm3 (0.9-3.2); Mean Corpuscular HGB Conc 30.5 g/dl (32-36); Mean Corpuscular Hemoglobin 28.5 pg (26-34); Mean Corpuscular Volume 93.6 fl (80-100); Mean Platelet Volume 10.9 fl (7.4-10.4); Monocytes Percent Auto 8.2 % (2.6-8.5); Neutrophils Absolute Auto 10.2 K/mm3 (1.3-6.7); Neutrophils Percent Auto 80.7 % (45.5-73.1); Platelet Count Result 280 k/mm3 (150-375); Red Blood Count 3.12 M/mm3 (4.6-6.20); Red Cell Distribution Width 14.9 % (11.5-14.5); White Blood Count 12.6 K/mm3 (4.5-10.0)
[2024-12-07 06:12] LABS: Anion Gap 10 mmol/L (4-12); Blood Urea Nitrogen 38 mg/dL (9-20); Calcium 8.2 mg/dL (8.4-10.2); Carbon Dioxide 27 mmol/L (22-30); Chloride 102 mmol/L (98-107); Estimated CRCL calculation 16 ml/min; Estimated Glomerular Filt Rate 12; Glucose 109 mg/dL (65-110); Magnesium 2.2 mg/dL (1.6-2.3); Phosphorus 5.3 mg/dL (2.5-4.5); Potassium 4.3 mmol/L (3.4-5.0); Sodium 139 mmol/L (137-145)
--- NOTE | 2024-12-07 07:12 | PM.PNGS ---
Progress Note: A&P Assessment and Plan (1) Gangrene of toe of left foot: Code(s): I96 - Gangrene, not elsewhere classified Status: Acute Assessment and Plan: No new areas of gangrene but wound looks somewhat ischemic to me with increasing degree of exudate rather than granulation tissue. Patient had arterial duplex scan on 11/26/2024 which did not show evidence of perfusion deficit. (2) Necrotizing soft tissue infection: Code(s): M79.89 - Other specified soft tissue disorders Status: Acute Assessment and Plan: Abscess noted on MRI that is not evident on exam. Patient does have areas on the edge of his wound that show evidence of necrosis and continuing necrotizing soft tissue infection. No time available in the operating room today so he will be done tomorrow afternoon. I discussed this with the patient this morning. (3) Bacteremia: Code(s): R78.81 - Bacteremia Status: Acute Assessment and Plan: Being evaluated for other sources of bacteremia, growing MRSA. (4) CVA (cerebral vascular accident): Code(s): I63.9 - Cerebral infarction, unspecified Status: Chronic (5) Chronic kidney disease (CKD), stage V: Code(s): N18.5 - Chronic kidney disease, stage 5 Status: Chronic Assessment and Plan: Continue dialysis Subjective Subjective Date/Time Seen: 12/07/24 07:12 Post Op day: #8 Patient reports: no new complaints and afebrile Interval history: somnolent as before, answers questions in very succinct manner, lethargic as before Exam Const: General: cooperative, comfortable, lethargic and tired appearing Extrem: Left lower extremity: foot (more exudate and evidence infection, necrosis sides and proximal) Details: tenderness; no ecchymosis and no crepitus Objective Data Vital Signs Vital Signs: Vital Signs - 24 hr 12/06/24 08:00 12/06/24 08:00 12/06/24 08:06 Temperature 36.4 C L Pulse Rate 62 62 65 Respiratory Rate 18 18 Blood Pressure 171/83 H Pulse Oximetry 100 100 Oxygen Delivery Room Air 12/06/24 08:26 12/06/24 08:30 12/06/24 08:45 Temperature Pulse Rate 64 65 66 Respiratory Rate Blood Pressure 163/80 H 171/90 H 192/92 H Pulse Oximetry Oxygen Delivery 12/06/24 09:00 12/06/24 09:15 12/06/24 09:30 Temperature Pulse Rate 63 63 61 Respiratory Rate Blood Pressure 178/87 H 168/83 H 161/80 H Pulse Oximetry Oxygen Delivery 12/06/24 09:45 12/06/24 10:00 12/06/24 10:15 Temperature Pulse Rate 62 64 63 Respiratory Rate Blood Pressure 171/83 H 167/82 H 171/87 H Pulse Oximetry Oxygen Delivery 12/06/24 10:30 12/06/24 10:45 12/06/24 11:00 Temperature Pulse Rate 65 64 63 Respiratory Rate Blood Pressure 178/85 H 174/82 H 174/80 H Pulse Oximetry Oxygen Delivery 12/06/24 11:15 12/06/24 11:30 12/06/24 11:45 Temperature Pulse Rate 64 66 67 Respiratory Rate Blood Pressure 166/80 H 169/82 H 168/85 H Pulse Oximetry Oxygen Delivery 12/06/24 11:56 12/06/24 12:00 12/06/24 12:00 Temperature 36.6 C Pulse Rate 67 67 80 Respiratory Rate 20 Blood Pressure 167/85 H 169/76 H Pulse Oximetry 100 Oxygen Delivery 12/06/24 14:00 12/06/24 16:00 12/06/24 20:00 Temperature 36.1 C L Pulse Rate 75 75 Respiratory Rate 18 Blood Pressure 160/72 H Pulse Oximetry 93 Oxygen Delivery Room Air 12/06/24 20:00 12/06/24 21:47 12/07/24 00:00 Temperature 37.7 C H Pulse Rate 75 82 78 Respiratory Rate 18 Blood Pressure 152/80 H Pulse Oximetry 100 Oxygen Delivery 12/07/24 04:00 Temperature Pulse Rate 66 Respiratory Rate Blood Pressure Pulse Oximetry Oxygen Delivery Intake/Output Intake/Output: Intake & Output 12/04/24 12/05/24 12/06/24 12/07/24 23:59 23:59 23:59 23:59 Intake Total 1600 2600 200 Output Total 377 240 9503 Balance 1400 2500 -2900 Meds/Results Medications: Active Medications Generic Name Dose Route Start Last Admin Trade Name Freq PRN Reason Stop Dose Admin Amlodipine Besylate 10 mg 11/27/24 09:00 11/30/24 08:30 Amlodipine Besylate 10 Mg Tablet PO 10 mg DAILY LILIAN Administration Atorvastatin Calcium 80 mg 11/27/24 09:00 12/01/24 11:36 Atorvastatin 40 Mg Tablet PO Not Given DAILY LILIAN Carvedilol 25 mg 11/26/24 21:00 11/30/24 08:29 Carvedilol 25 Mg Tablet PO 25 mg Q12HR LILIAN Administration Clopidogrel Bisulfate 75 mg 11/27/24 09:00 12/06/24 09:32 Clopidogrel Bisulfate 75 Mg Tablet PO Not Given DAILY LILIAN Collagenase 1 applic 12/03/24 21:00 12/07/24 05:43 Collagenase Oint 30 Gm Tube TOPICAL 1 applic Q12HR LILIAN Administration Dextrose 12.5 gm 11/30/24 16:34 Dextrose 50% 25 Gm/50 Ml Syringe IV PUSH PRN PRN Hypoglycemia Protocol Docusate Sodium 100 mg 11/26/24 17:00 11/30/24 17:21 Docusate Sodium 100 Mg Capsule PO Not Given BID [facility] Glucagon 1 mg 11/30/24 16:34 Glucagon For Inj 1 Mg Vial IM PRN PRN Hypoglycemia Protocol Glucose 15 gm 11/30/24 16:34 Glucose Oral Gel 15 Gm Of Glucse In 37.5 Gm Tube PO PRN PRN Hypoglycemia Protocol Hydralazine HCl 50 mg 11/26/24 17:00 11/30/24 12:49 Hydralazine Hcl 50 Mg Tablet PO Not Given TID [facility] Hydralazine HCl 10 mg 12/04/24 09:10 12/06/24 16:53 Hydralazine Hcl 20 Mg/Ml Vial IV PUSH 10 mg TID LILIAN Administration Albumin Human 50 mls @ 999 mls/hr 11/27/24 06:51 Albutein IVPB 12/27/24 06:50 Q10M PRN HYPOTENSION Ibuprofen 800 mg in 200 mls @ 400 mls/hr 11/29/24 17:35 11/30/24 21:19 Caldolor 800 Mg/200 Ml IVPB Infused Q6H PRN Infusion Breakthrough Pain Rated 1-3 or NPO Cefepime HCl 1 gm in 50 mls @ 100 mls/hr 11/30/24 18:00 12/06/24 16:52 Maxipime 1 Gm/Ns 50 Ml IVPB 100 mls/hr DAILY@1800 LILIAN Administration Metronidazole 500 mg in 100 mls @ 100 mls/hr 11/30/24 14:00 12/07/24 05:41 Flagyl 500 Mg/Iso Soln 100 Ml IVPB 100 mls/hr Q8H LILIAN Administration Dextrose 1,000 mls @ 100 mls/hr 11/30/24 16:34 Dextrose 5% 1,000 Ml IVPB PRN PRN Hypoglycemia Protocol Dextrose 1,000 mls @ 50 mls/hr 12/03/24 12:25 Dextrose 10% IV CONT .Q20H PRN if PN is interrupted Amino Acids/Electrolytes/Dextrose 1,000 mls @ 80 mls/hr 12/03/24 15:00 12/06/24 17:55 Clinimix E 4.25%/5% Solution IV CONT 80 mls/hr .[id number] LILIAN Administration Protocol Fat Emulsion Intravenous 250 mls @ 20.833 mls/hr 12/05/24 09:00 12/06/24 12:37 Lipids 20% IVPB 20.83 mls/hr Q24H LILIAN Administration Insulin Aspart 2 - 5 units 12/01/24 00:00 12/07/24 05:31 Insulin Aspart (*Bkc) 100 Units/Ml SUB-Q Not Given Q6HR [facility] Protocol Naloxone HCl 0.1 mg 11/29/24 17:35 Naloxone Hcl 0.4 Mg/Ml Vial IV PUSH Q2M PRN Opiate Reversal Ondansetron HCl 4 mg 11/26/24 14:10 12/06/24 08:44 Ondansetron Inj 4 Mg/2 Ml Vial IV PUSH 4 mg Q4H PRN Administration Nausea Oxycodone/Acetaminophen 0.5 tablet 11/29/24 17:35 Oxycodone/Acetaminophen (*Crx) 5-325 Mg Tablet PO Q4H PRN Pain Rated 4-6 Pantoprazole Sodium 40 mg 12/02/24 12:00 12/06/24 09:33 Pantoprazole 40 Mg Tablet PO Not Given QAM LILIAN Polyethylene Glycol 17 gm 11/30/24 09:00 11/30/24 08:29 Polyethylene Glycol 3350 17 Gm Powd.Pack PO 17 gm QAM LILIAN Administration Senna/Docusate Sodium 2 tab 11/29/24 21:00 11/29/24 20:29 Senna/Docusate Sodium Tablet PO 2 tab HS LILIAN Administration Vancomycin HCl 1 each 11/26/24 13:16 Vancomycin For Hemodialysis IVPB PRN PRN Vancomycin Protocol Radiology Results: ITS Impressions Foot X-Ray 11/26/24 12:58 Impression: 1: Moderate soft tissue swelling of the second digit. The distal phalanx not well visualized. Cannot exclude osteomyelitis. 2: Extra-articular fracture left fifth proximal phalanx. Duplex Scan Lower Extremity Artery 11/26/24 13:53 IMPRESSION: 1. No evident hemodynamically significant stenosis either by follow-up elevation of peak systolic velocities or by direct visualization grayscale imaging with brisk systolic upstrokes arteries of the bilateral lower limbs. Head CT 11/30/24 12:22 IMPRESSION: 1. . 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 No acute intracranial process. 2. Age-related changes including mild diffuse volume loss and moderate scattered white matter hypoattenuation consistent with chronic small vessel ischemic disease. Chest X-Ray 11/30/24 12:37 IMPRESSION: 1. Opacities in the right mid and lower lung zones which could represent atelectasis, aspiration and/or pneumonia. 2. Small right pleural effusion. Modified Barium Swallow 12/03/24 12:12 IMPRESSION: Pharyngeal dysphagia with laryngeal penetration and aspiration. Please correlate with speech pathologist findings and specific feeding recommendations. Foot MRI 12/05/24 13:43 IMPRESSION: Status post transmetatarsal amputation of the second digit. 2.4 x 1.8 x 3.3 cm peripherally enhancing fluid collection at the second interspace at the level the proximal metatarsal shafts is compatible with abscess. Diffuse myositis of the plantar musculature of the foot. No evidence for osteomyelitis or fracture. Susceptibility artifact at the operative bed and dorsal soft tissues at the second digit region could reflect artifact and/or open soft tissue wound. Correlate with physical exam. Labs Labs: Laboratory Results - last 24 hr 12/06/24 12/06/24 12/06/24 06:45 13:09 18:05 WBC RBC Hgb Hct MCV MCH MCHC RDW Plt Count MPV Immature Gran % (Auto) Neut % (Auto) Lymph % (Auto) [place] % (Auto) Eos % (Auto) Baso % (Auto) Lymph # (Auto) [place] # (Auto) Eos # (Auto) Baso # (Auto) Abs Immat Gran (auto) Absolute Neuts (auto) Absolute Nucleated RBC Nucleated RBC % Sodium Potassium Chloride Carbon Dioxide Anion Gap BUN Creatinine Estim Creat Clear Calc Estimated GFR Glucose POC Capillary Glucose 109 H 89 104 Calcium Phosphorus Magnesium Albumin 12/07/24 05:30 WBC 12.6 H RBC 3.12 L Hgb 8.9 L Hct 29.2 L MCV 93.6 MCH 28.5 MCHC 30.5 L RDW 14.9 H Plt Count 280 MPV 10.9 H Immature Gran % (Auto) 2.6 H Neut % (Auto) 80.7 H Lymph % (Auto) 7.0 L [place] % (Auto) 8.2 Eos % (Auto) 0.9 Baso % (Auto) 0.6 Lymph # (Auto) 0.88 L [place] # (Auto) 1.0 H Eos # (Auto) 0.1 Baso # (Auto) 0.1 Abs Immat Gran (auto) 0.33 H Absolute Neuts (auto) 10.2 H Absolute Nucleated RBC 0.000 Nucleated RBC % 0.0 Sodium 139 Potassium 4.3 Chloride 102 Carbon Dioxide 27 Anion Gap 10 BUN 38 H D Creatinine 5.14 H Estim Creat Clear Calc 16 Estimated GFR 12 L Glucose 109 POC Capillary Glucose Calcium 8.2 L Phosphorus 5.3 H Magnesium 2.2 Albumin 3.0 L Imaging Attestation: I personally reviewed and interpreted this imaging study as follows: (MRI left foot) My impression: I reviewed the imaging with Dr. Meeks. There is an abscess proximal to the present wound. There was also evidence of ongoing infection on the proximal sides of the open amputation, both towards the great toe and towards the 3rd toe. The abscess is not noted on physical exam Radiologist's impression:
[2024-12-07 07:40] LABS: Glucose Point of Care 105 mg/dl (65-105)
[2024-12-07 07:40] LABS: Glucose Point of Care 114 mg/dl (65-105)
[2024-12-07 08:02] LABS: Toxigenic C. Diff NEGATIVE (NEGATIVE)
[2024-12-07 08:28] LABS: Glucose Point of Care 111 mg/dl (65-105)
[2024-12-07] MEDS: hydrALAZINE HCL 20 MG/ML VIAL 10 MG IV PUSH ×3 (10:08→17:48)
[2024-12-07] MEDS: FAT EMULSIONS IV 20% 250 ML 20.83 ML IVPB (10:08)
[2024-12-07] MEDS: AMINO ACIDS 4.25%/D5W/LYTES/CA 1,000 ML 80 ML IV CONT (10:09)
--- NOTE | 2024-12-07 10:36 | P.PNIM_ITS ---
Progress Note: A&P Assessment and Plan (1) Bacteremia: Code(s): R78.81 - Bacteremia Status: Acute Assessment and Plan: Blood cultures obtained 11/26: staph aureus, Echo LVEF 60-65% with abnormal diastolic function and an abnormal appearing aortic valve that is heavily calcified and has at least moderate stenosis. KATLIN completed today with Dr Michelle: KATLIN negative for infective endocarditis. KATLIN shows severe aortic stenosis with ALBINO of 0.9cm2. Will arrange outpatient follow up for his valvular disease. Avoid hypotension Patient is follow up culture x1 bottle on 12/01/2024 still remains positive with Staphylococcus aureus follow-up cultures from 12/03 positive need source control will likely need further surgical intervention noted by surgery that there was some necrotic tissue superficial to the tendon. Base of the wound no granulation tissue and quite a bit of slough. Surgery spoke with patient and family regarding the need for amputation with List Oliver of the left foot to preserve the heel verses a left below-knee amputation which is a real possible since the wound is non-healing and we need source control MRI Results: Status post transmetatarsal amputation of the second digit. 2.4 x 1.8 x 3.3 cm peripherally enhancing fluid collection at the second interspace at the level the proximal metatarsal shafts is compatible with abscess. Diffuse myositis of the plantar musculature of the foot. No evidence for osteomyelitis or fracture. Susceptibility artifact at the operative bed and dorsal soft tissues at the second digit region could reflect artifact and/or open soft tissue wound. Correlate with physical exam. * Patient remains on vancomycin per Sensitivities * Repeat cultures * will repeat blood cultures once follow-up surgery is completed plan for surgery 12/08/2024 follow-up cultures placed for 12/11/2024 (2) Diabetic infection of left foot: Code(s): E11.628 - Type 2 diabetes mellitus with other skin complications; L08.9 - Local infection of the skin and subcutaneous tissue, unspecified Status: Acute Assessment and Plan: Erythema and edema to the dorsal aspect of the left foot extending to the ankle. Unable to palpate DP pulses. Black foul smelling 2nd toe of the left foot. Foot XR left showed moderate soft tissue swelling of the second digit with poor visualization fo the distal phalanx. Osteomyelitis cannot be rule out. Also extra articular fracture to the left fifth proximal phalanx, Duplex showed No evident hemodynamically significant stenosis either by follow-up elevation of peak systolic velocities or by direct visualization grayscale imaging with brisk systolic upstrokes arteries of the bilateral lower limbs. * continue with IV cefepime, Flagyl and vancomycin * Surgery consulted and performed a s/p open transmetatarsal amputation left 2nd toe on 11/[address] Goodson * MRI Pending may need further surgical intervention currently patient is not exhibiting his bacteremia * Dressing changes per surgery SEE ABOVE #1 (3) Necrotizing soft tissue infection: Code(s): M79.89 - Other specified soft tissue disorders Status: Acute Assessment and Plan: Abscess noted on MRI that is not evident on exam. Patient does have areas on the edge of his wound that show evidence of necrosis and continuing necrotizing soft tissue infection. SEE ABOVE #2 (4) Gangrenous toe: Code(s): I96 - Gangrene, not elsewhere classified Status: Acute Assessment and Plan: See plan above (5) Aspiration pneumonia: Code(s): J69.0 - Pneumonitis due to inhalation of food and vomit Status: Acute Assessment and Plan: Per patient son, the patient has been coughing with meals for a few months. CXR: Opacities in the right mid and lower lung zones which could represent atelectasis, aspiration and/or pneumonia. Small right pleural effusion. Patient continues to fail modified barium swallow at this time will initiate PPN do not want to place a PICC quite yet due to patient's bacteremia that is not clearing but likely is going to be necessary not only to initiate TPN med as well for long-term IV antibiotic therapy. Will continue with PPN/TPN and plan on follow-up MBS in a few days will need to discuss with family about placing PEG tube but still once again have some reservation due to patient's continued b acteremia. Failed 3 MBS GI consulted for peg tube placement unsure if they will wait until we have source control * NPO * started PPN * Failed MBS x 3 * GI consulted for Peg tube placement * Speech therapy following. * continue with current IV antibiotics (6) Aortic stenosis: Code(s): I35.0 - Nonrheumatic aortic (valve) stenosis Status: Acute Assessment and Plan: Echo ordered to rule out endocarditis LVEF 60-65% with abnormal diastolic fu nction and an abnormal appearing aortic valve that is heavily calcified and has at least moderate stenosis. * Recommend cardiology follow up outpatient. (7) Type 2 diabetes mellitus: Code(s): E11.9 - Type 2 diabetes mellitus without complications Status: Acute Assessment and Plan: * hypoglycemia protocol * POC blood glucose Q6hr * correct regimen ordered - low dose TIDWM currently on dextrose 5 can no home medication * A1C 5.9 in desired range (8) Anemia: Code(s): D64.9 - Anemia, unspecified Status: Chronic Assessment and Plan: Chronic, likely secondary to ESRD * Given epoetin 10,000 units x1 on 11/27 * No signs of active bleeding * Monitor H&H Tranfuse of hgb <7.0 (9) Carotid artery disease: Qualifiers: Carotid artery disease type: stenosis Laterality: unspecified laterality Qualified Code(s): I65.29 - Occlusion and stenosis of unspecified carotid artery Code(s): I77.9 - Disorder of arteries and arterioles, unspecified Status: Chronic Assessment and Plan: * Continue Plavix post surgery (10) Hypertension: Qualifiers: Hypertension type: unspecified Qualified Code(s): I10 - Essential (primary) hypertension Code(s): I10 - Essential (primary) hypertension Status: Chronic Assessment and Plan: * continued amlodipine 10 mg daily, coreg 25 mg BID, hydralazine 50 mg TID placed on hold due to patient NPO * hydralazine 10 mg IV PRN * blood pressures stable, continue to monitor (11) End stage renal disease on dialysis: Code(s): N18.6 - End stage renal disease; Z99.2 - Dependence on renal dialysis Status: Acute Assessment and Plan: * ESRD on dialysis [facility] * Nephrology consulted * avoid nephrotoxic medications * pharmacy to dose antibiotic (12) Heart failure with preserved ejection fraction: Qualifiers: Heart failure chronicity: unspecified Qualified Code(s): I50.30 - Unspecified diastolic (congestive) heart failure Code(s): I50.30 - Unspecified diastolic (congestive) heart failure Status: Chronic Assessment and Plan: Chronic, does not appear in acute exacerbation, Echo 07/2023 showed LVEF 40-45% with grade 2 diastolic dysfunction Echo ordered to rule out endocarditis LVEF 60-65% with abnormal diastolic function and an abnormal appearing aortic valve that is heavily calcified and has at least moderate stenosis. * Plan to follow up with primary payroll master outpatient * monitor for fluid overload likely dialysis will assist * daily weights (13) Encephalopathy: Code(s): G93.40 - Encephalopathy, unspecified Status: Acute Assessment and Plan: On 11/30/2024: Severely lethargic with a right side lean and associated right gaze. His voice was increasingly garbled and his responses were slow. Remained AOx3 with otherwise benign neuro exam. Likely metabolic vs drug induced (received morphine overnight) encephalopathy. 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 No acute intracranial process. Age-related changes including mild diffuse volume loss and moderate scattered white matter hypoattenuation consistent with chronic small vessel ischemic disease. Mental status improving patient with flat affect. - Morphine was discontinued - ABG: pH 7.538, pCO2 35.8, pO2 53.2, HCO3 29.8. Started on 2L NC for hypoxemia. - Lactic WNL. Procal elevated at 6.1. Glucose WNL. Plan Code status: Full code per patient DVT prophylaxis: Scd Stress ulcer prophylaxis: Protonix 40 daily PT/OT notes: Pending Disposition: patient continues admission for treatment necrotic left toe with amputation and bacteremia for set of cultures are pending for clearance will continue with current treatment plan patient failed his MBS again initiated on PPN some concern placing PICC due to continued bacteremia that is clearing need source control likely need further surgical intervention if continues through have positive blood cultures hopefully we can get some clearance of his bacteremia prior to having to place a PICC or PEG tube. Planned for surgery tomorrow follow-up cultures in 2 days failed MBS GI consult for PEG tube placement. Time Spent With Patient Time with patient: 15 - 25 minutes Subjective Date/time seen: 12/07/24 10:36 Interval history: 59 year old male with past medical history of HTN, CAD, CVA, CHF, and ESRD on dialysis presents to the hospital with complaint of a black left toe. 12/07/2024: Patient quiet withdrawn still not feeling well with nausea. tracking noted from surgical site plan for surgery tomorrow 12/08. WBC improving and afebrile. Review of Systems Review of Systems: 12 systems were reviewed and are negativ e except for as per HPI. All systems reviewed & are unremarkable except as noted in HPI and below Exam Narrative: General: NAD male lying in bed HEENT: Normocephalic. Chest: Clear to auscultation throughout CV: RRR Abd: Abdomen was soft. N/V noted during assessment Ext: LT foot wound second metatarsal noticeable necrotic tissue around the wound bed with erythema, and moderate slough. Left upper arm fistula Neuro: Patient remains AOx3 on assessment, slow to respond with mild slurred speech family reported at baseline Psych: Flat affect Objective Data Vital Signs Vital Signs: Vital Signs - 24 hr 12/06/24 10:45 12/06/24 11:00 12/06/24 11:15 Temperature Pulse Rate 64 63 64 Respiratory Rate Blood Pressure 174/82 H 174/80 H 166/80 H Pulse Oximetry Oxygen Delivery 12/06/24 11:30 12/06/24 11:45 12/06/24 11:56 Temperature Pulse Rate 66 67 67 Respiratory Rate Blood Pressure 169/82 H 168/85 H 167/85 H Pulse Oximetry Oxygen Delivery 12/06/24 12:00 12/06/24 12:00 12/06/24 14:00 Temperature 97.9 F 97.0 F L Pulse Rate 67 80 75 Respiratory Rate 20 18 Blood Pressure 169/76 H 160/72 H Pulse Oximetry 100 93 Oxygen Delivery 12/06/24 16:00 12/06/24 20:00 12/06/24 20:00 Temperature Pulse Rate 75 75 Respiratory Rate Blood Pressure Pulse Oximetry Oxygen Delivery Room Air 12/06/24 21:47 12/07/24 00:00 12/07/24 04:00 Temperature 99.9 F H Pulse Rate 82 78 66 Respiratory Rate 18 Blood Pressure 152/80 H Pulse Oximetry 100 Oxygen Delivery 12/07/24 06:00 Temperature 98.8 F Pulse Rate 68 Respiratory Rate 18 Blood Pressure 188/74 H Pulse Oximetry 97 Oxygen Delivery Intake/Output Intake/Output: Intake & Output 12/04/24 12/05/24 12/06/24 12/07/24 23:59 23:59 23:59 23:59 Intake Total 1600 2600 200 1250 Output Total 109 807 1680 Balance 1400 2500 -2900 1250 Meds/Results Medications: Active Medications Generic Name Dose Route Start Last Admin Trade Name Freq PRN Reason Stop Dose Admin Amlodipine Besylate 10 mg 11/27/24 09:00 11/30/24 08:30 Amlodipine Besylate 10 Mg Tablet PO 10 mg DAILY [facility] Administration Atorvastatin Calcium 80 mg 11/27/24 09:00 12/01/24 11:36 Atorvastatin 40 Mg Tablet PO Not Given DAILY [facility] Carvedilol 25 mg 11/26/24 21:00 11/30/24 08:29 Carvedilol 25 Mg Tablet PO 25 mg Q12HR LILIAN Administration Clopidogrel Bisulfate 75 mg 11/27/24 09:00 12/06/24 09:32 Clopidogrel Bisulfate 75 Mg Tablet PO Not Given DAILY [facility] Collagenase 1 applic 12/03/24 21:00 12/07/24 10:08 Collagenase Oint 30 Gm Tube TOPICAL 1 applic Q12HR LILIAN Administration Dextrose 12.5 gm 11/30/24 16:34 Dextrose 50% 25 Gm/50 Ml Syringe IV PUSH PRN PRN Hypoglycemia Protocol Docusate Sodium 100 mg 11/26/24 17:00 11/30/24 17:21 Docusate Sodium 100 Mg Capsule PO Not Given BID [facility] Glucagon 1 mg 11/30/24 16:34 Glucagon For Inj 1 Mg Vial IM PRN PRN Hypoglycemia Protocol Glucose 15 gm 11/30/24 16:34 Glucose Oral Gel 15 Gm Of Glucse In 37.5 Gm Tube PO PRN PRN Hypoglycemia Protocol Hydralazine HCl 50 mg 11/26/24 17:00 11/30/24 12:49 Hydralazine Hcl 50 Mg Tablet PO Not Given TID [facility] Hydralazine HCl 10 mg 12/04/24 09:10 12/07/24 10:08 Hydralazine Hcl 20 Mg/Ml Vial IV PUSH 10 mg TID LILIAN Administration Albumin Human 50 mls @ 999 mls/hr 11/27/24 06:51 Albutein IVPB 12/27/24 06:50 Q10M PRN HYPOTENSION Ibuprofen 800 mg in 200 mls @ 400 mls/hr 11/29/24 17:35 11/30/24 21:19 Caldolor 800 Mg/200 Ml IVPB Infused Q6H PRN Infusion Breakthrough Pain Rated 1-3 or NPO Cefepime HCl 1 gm in 50 mls @ 100 mls/hr 11/30/24 18:00 12/06/24 16:52 Maxipime 1 Gm/Ns 50 Ml IVPB 100 mls/hr DAILY@1800 LILIAN Administration Metronidazole 500 mg in 100 mls @ 100 mls/hr 11/30/24 14:00 12/07/24 05:41 Flagyl 500 Mg/Iso Soln 100 Ml IVPB 100 mls/hr Q8H LILIAN Administration Dextrose 1,000 mls @ 100 mls/hr 11/30/24 16:34 Dextrose 5% 1,000 Ml IVPB PRN PRN Hypoglycemia Protocol Dextrose 1,000 mls @ 50 mls/hr 12/03/24 12:25 Dextrose 10% IV CONT .Q20H PRN if PN is interrupted Amino Acids/Electrolytes/Dextrose 1,000 mls @ 80 mls/hr 12/03/24 15:00 12/07/24 10:09 Clinimix E 4.25%/5% Solution IV CONT 80 mls/hr .[id number] LILIAN Administration Protocol Fat Emulsion Intravenous 250 mls @ 20.833 mls/hr 12/05/24 09:00 12/07/24 10:08 Lipids 20% IVPB 20.83 mls/hr Q24H LILIAN Administration Insulin Aspart 2 - 5 units 12/01/24 00:00 12/07/24 10:04 Insulin Aspart (*Bkc) 100 Units/Ml SUB-Q Not Given Q6HR [facility] Protocol Naloxone HCl 0.1 mg 11/29/24 17:35 Naloxone Hcl 0.4 Mg/Ml Vial IV PUSH Q2M PRN Opiate Reversal Ondansetron HCl 4 mg 11/26/24 14:10 12/06/24 08:44 Ondansetron Inj 4 Mg/2 Ml Vial IV PUSH 4 mg Q4H PRN Administration Nausea Oxycodone/Acetaminophen 0.5 tablet 11/29/24 17:35 Oxycodone/Acetaminophen (*Crx) 5-325 Mg Tablet PO Q4H PRN Pain Rated 4-6 Pantoprazole Sodium 40 mg 12/02/24 12:00 12/07/24 10:05 Pantoprazole 40 Mg Tablet PO Not Given QAM LILIAN Polyethylene Glycol 17 gm 11/30/24 09:00 11/30/24 08:29 Polyethylene Glycol 3350 17 Gm Powd.Pack PO 17 gm QAM LILIAN Administration Senna/Docusate Sodium 2 tab 11/29/24 21:00 11/29/24 20:29 Senna/Docusate Sodium Tablet PO 2 tab HS LILIAN Administration Vancomycin HCl 1 each 11/26/24 13:16 Vancomycin For Hemodialysis IVPB PRN PRN Vancomycin Protocol Radiology Results: ITS Impressions Foot X-Ray 11/26/24 12:58 Impression: 1: Moderate soft tissue swelling of the second digit. The distal phalanx not well visualized. Cannot exclude osteomyelitis. 2: Extra-articular fracture left fifth proximal phalanx. Duplex Scan Lower Extremity Artery 11/26/24 13:53 IMPRESSION: 1. No evident hemodynamically significant stenosis either by follow-up elevation of peak systolic velocities or by direct visualization grayscale imaging with brisk systolic upstrokes arteries of the bilateral lower limbs. Head CT 11/30/24 12:22 IMPRESSION: 1. . 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 No acute intracranial process. 2. Age-related changes including mild diffuse volume loss and moderate scattered white matter hypoattenuation consistent with chronic small vessel ischemic disease. Chest X-Ray 11/30/24 12:37 IMPRESSION: 1. Opacities in the right mid and lower lung zones which could represent atelectasis, aspiration and/or pneumonia. 2. Small right pleural effusion. Foot MRI 12/05/24 13:43 IMPRESSION: Status post transmetatarsal amputation of the second digit. 2.4 x 1.8 x 3.3 cm peripherally enhancing fluid collection at the second interspace at the level the proximal metatarsal shafts is compatible with abscess. Diffuse myositis of the plantar musculature of the foot. No evidence for osteomyelitis or fracture. Susceptibility artifact at the operative bed and dorsal soft tissues at the second digit region could reflect artifact and/or open soft tissue wound. Correlate with physical exam. Modified Barium Swallow 12/07/24 09:32 IMPRESSION: Pharyngeal dysphagia with laryngeal penetration and aspiration. Please correlate with speech pathologist findings and specific feeding recommendations. Labs Labs: Laboratory Results - last 24 hr 12/06/24 12/06/24 12/07/24 13:09 18:05 01:21 WBC RBC Hgb Hct MCV MCH MCHC RDW Plt Count MPV Immature Gran % (Auto) Neut % (Auto) Lymph % (Auto) [place] % (Auto) Eos % (Auto) Baso % (Auto) Lymph # (Auto) [place] # (Auto) Eos # (Auto) Baso # (Auto) Abs Immat Gran (auto) Absolute Neuts (auto) Absolute Nucleated RBC Nucleated RBC % Sodium Potassium Chloride Carbon Dioxide Anion Gap BUN Creatinine Estim Creat Clear Calc Estimated GFR Glucose POC Capillary Glucose 89 104 114 H Calcium Phosphorus Magnesium Albumin C. difficile (PCR) 12/07/24 12/07/24 12/07/24 04:27 05:30 06:26 WBC 12.6 H RBC 3.12 L Hgb 8.9 L Hct 29.2 L MCV 93.6 MCH 28.5 MCHC 30.5 L RDW 14.9 H Plt Count 280 MPV 10.9 H Immature Gran % (Auto) 2.6 H Neut % (Auto) 80.7 H Lymph % (Auto) 7.0 L [place] % (Auto) 8.2 Eos % (Auto) 0.9 Baso % (Auto) 0.6 Lymph # (Auto) 0.88 L [place] # (Auto) 1.0 H Eos # (Auto) 0.1 Baso # (Auto) 0.1 Abs Immat Gran (auto) 0.33 H Absolute Neuts (auto) 10.2 H Absolute Nucleated RBC 0.000 Nucleated RBC % 0.0 Sodium 139 Potassium 4.3 Chloride 102 Carbon Dioxide 27 Anion Gap 10 BUN 38 H D Creatinine 5.14 H Estim Creat Clear Calc 16 Estimated GFR 12 L Glucose 109 POC Capillary Glucose 105 Calcium 8.2 L Phosphorus 5.3 H Magnesium 2.2 Albumin 3.0 L C. difficile (PCR) Negative 12/07/24 08:24 WBC RBC Hgb Hct MCV MCH MCHC RDW Plt Count MPV Immature Gran % (Auto) Neut % (Auto) Lymph % (Auto) [place] % (Auto) Eos % (Auto) Baso % (Auto) Lymph # (Auto) [place] # (Auto) Eos # (Auto) Baso # (Auto) Abs Immat Gran (auto) Absolute Neuts (auto) Absolute Nucleated RBC Nucleated RBC % Sodium Potassium Chloride Carbon Dioxide Anion Gap BUN Creatinine Estim Creat Clear Calc Estimated GFR Glucose POC Capillary Glucose 111 H Calcium Phosphorus Magnesium Albumin C. difficile (PCR) Quality VTE Prophylaxis VTE prophylaxis: mechanical ordered -Patient's previous records reviewed on admission -ER notes reviewed in detail on admission -discussed all findings and current treatment plan with patient/Family/POA -Consultations reviewed for recommendations -Patient's disposition for safe discharge discussed with bilingual patient support caseworker Dictation performed by [employer] direct speech recognition software, therefore cage supervisor variants and typographical errors may occur. Hospitalist MIPS Advance Care Plan I have confirmed that the patient's Advanced Care Plan is present, code status is documented, or surrogate decision maker is listed in patient medical record.: Yes Medication Reconciliation I have utilized all available resources to obtain, update and review the patients current medications (includes all prescriptions, OTC, herbals, cannabis, and nutritional supplements).: Yes The patient is not eligible for med reconciliation; the patient is in a emergent medical situation where delaying treatment would jeopardize the patients health.: No
--- NOTE | 2024-12-07 10:45 | P.PNNP_ITS ---
Progress Note: A&P Assessment and Plan (1) End stage renal disease: Code(s): N18.6 - End stage renal disease Status: Chronic Assessment and Plan: * HD tomorrow * continue Fri/Fri/Friday dialysis schedule while hospitalized * follow electrolytes, volume status, and clearance * kidney disease due to biopsy proven diabetes and hypertension along with vascular disease (CVA + hyperlipemia) (2) Gangrene of toe of left foot: Code(s): I96 - Gangrene, not elsewhere classified Status: Acute Assessment and Plan: * as noted by clinical exam * Surgery following * s/p open transmetatarsal amputation left 2nd toe (11/29) * MRI of left foot results reviewed -- see #4 * likely to need further surgical intervention - noted plan for tomorrow * on IV antibiotics (3) Cellulitis of left foot: Code(s): L03.116 - Cellulitis of left lower limb Status: Acute Assessment and Plan: * as noted on presentation * likely a complication of diabetes and #2 * on antibiotics (4) Bacteremia: Code(s): R78.81 - Bacteremia Status: Acute Assessment and Plan: * as noted: * blood cultures (11/26): MRSA * blood cultures (11/28): MRSA * blood cultures (12/01): MRSA (1 out of 2 sets) * blood cultures (12/02): no growth * blood cultures (12/03): Staphylococcus aureus (1 out of 2 sets) * presumably related to #2 and #3 * results of KATLIN noted (12/01): * No evidence of infective endocarditis. The aortic valve is severely calcified with severe aortic stenosis with an ABLINO of 0.9cm2 by planimetry. * on antibiotics * MRI of left foot (12/05) noted: * status post transmetatarsal amputation of the second digit * 2.4 x 1.8 x 3.3 cm peripherally enhancing fluid collection at the second interspace at the level the proximal metatarsal shafts is compatible with abscess * diffuse myositis of the plantar musculature of the foot * no evidence for osteomyelitis or fracture * follow culture data (5) Altered mental status: Code(s): R41.82 - Altered mental status, unspecified Status: Acute Assessment and Plan: * slow improvement noted (if not back to baseline) * initially noted this on morning of 11/30 * testing/evaluation noted at that time: * ABG: pH 7.538, pCO2 35.8, pO2 53.2, HCO3 29.8 * lactic normal; procalcitonin elevated at 6.1; glucose okay * CT of brain: unchanged small old infarcts in the right frontal lobe, abdelrahman, right lentiform nucleus and left thalamus; no acute intracranial process; age-related changes including mild diffuse volume loss and moderate scattered white matter hypoattenuation consistent with chronic small vessel ischemic disease * CXR: opacities in the right mid and lower lung zones which could represent atelectasis, aspiration and/or pneumonia; small right pleural effusion * limiting narcotics as tolerated * continue supportive therapy (6) Aspiration pneumonia: Code(s): J69.0 - Pneumonitis due to inhalation of food and vomit Status: Acute Assessment and Plan: * as suggested by CXR on 11/30 * on antibiotics * viral testing (COVID/RSV/influenza) negative * NPO as failed modified barium swallow x 3 * speech therapy following * started on PPN for nutritional support * may need PEG... * follow respiratory status (7) Anemia: Code(s): D64.9 - Anemia, unspecified Status: Chronic Assessment and Plan: * due to ESRD with worsening due to acute illness/infection * follow trend of H/H * Epogen with HD (8) Heart failure with preserved ejection fraction: Qualifiers: Heart failure chronicity: unspecified Qualified Code(s): I50.30 - Unspecified diastolic (congestive) heart failure Code(s): I50.30 - Unspecified diastolic (congestive) heart failure Status: Chronic Assessment and Plan: * appears compensated * fluid removal with dialysis to maintain euvolemia * continue supportive therapy (9) Hypertension: Qualifiers: Hypertension type: unspecified Qualified Code(s): I10 - Essential (primary) hypertension Code(s): I10 - Essential (primary) hypertension Status: Chronic Assessment and Plan: * reasonable control during hospitalization * a bit elevated by recent check * known history of poor control at baseline * follow trend of hemodynamics (10) Diabetes: Qualifiers: Chronic kidney disease stage: on chronic dialysis Diabetes mellitus complication detail: with chronic kidney disease Diabetes mellitus complication status: with kidney complications Diabetes mellitus intermediate project manager insulin use: w [facility] intermediate project manager use Diabetes mellitus type: type 2 Qualified Code(s): E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 L Subjective Date/time seen: 12/07/24 10:45 Interval history: Follow-up for end stage renal disease on hemodialysis. Tolerated dialysis treatment yesterday without any issue or problems; failed third modified barium swallow study earlier this morning -- remains NPO and on PPN for nutritional support; family at bedside and are aware he may need a G- tube placement; noted plans for further surgical intervention tomorrow afternoon. Exam 2 Narrative: General: WD/WN male in NAD Heart: normal S1 and S2; no rub Lungs: clear anteriorly Abdomen: soft, nontender, nondistended, positive bowel sounds Extremities: no cyanosis or clubbing; + edema left foot Skin: left foot dressings in place Objective Data Vital Signs Vital Signs: Vital Signs Temp Pulse Resp BP Pulse Ox O2 Del Method 12/07/24 06:00 98.8 F 68 18 188/74 H 97 12/07/24 04:00 66 12/07/24 00:00 78 12/06/24 21:47 99.9 F H 82 18 152/80 H 100 12/06/24 20:00 75 12/06/24 20:00 Room Air 12/06/24 16:00 75 12/06/24 14:00 97.0 F L 75 18 160/72 H 93 Intake/Output Intake/Output: Intake & Output 12/04/24 12/05/24 12/06/24 12/07/24 23:59 23:59 23:59 23:59 Intake Total 1600 2600 200 1250 Output Total 801 929 4541 Balance 1400 2500 -2900 1250 Meds/Results Medications: Active Medications Generic Name Dose Route Start Last Admin Trade Name Freq PRN Reason Stop Dose Admin Amlodipine Besylate 10 mg 11/27/24 09:00 11/30/24 08:30 Amlodipine Besylate 10 Mg Tablet PO 10 mg DAILY LILIAN Administration Atorvastatin Calcium 80 mg 11/27/24 09:00 12/01/24 11:36 Atorvastatin 40 Mg Tablet PO Not Given DAILY LILIAN Carvedilol 25 mg 11/26/24 21:00 11/30/24 08:29 Carvedilol 25 Mg Tablet PO 25 mg Q12HR LILIAN Administration Clopidogrel Bisulfate 75 mg 11/27/24 09:00 12/06/24 09:32 Clopidogrel Bisulfate 75 Mg Tablet PO Not Given DAILY LILIAN Collagenase 1 applic 12/03/24 21:00 12/07/24 10:08 Collagenase Oint 30 Gm Tube TOPICAL 1 applic Q12HR LILIAN Administration Dextrose 12.5 gm 11/30/24 16:34 Dextrose 50% 25 Gm/50 Ml Syringe IV PUSH PRN PRN Hypoglycemia Protocol Docusate Sodium 100 mg 11/26/24 17:00 11/30/24 17:21 Docusate Sodium 100 Mg Capsule PO Not Given BID LILIAN Glucagon 1 mg 11/30/24 16:34 Glucagon For Inj 1 Mg Vial IM PRN PRN Hypoglycemia Protocol Glucose 15 gm 11/30/24 16:34 Glucose Oral Gel 15 Gm Of Glucse In 37.5 Gm Tube PO PRN PRN Hypoglycemia Protocol Hydralazine HCl 50 mg 11/26/24 17:00 11/30/24 12:49 Hydralazine Hcl 50 Mg Tablet PO Not Given TID [facility] Hydralazine HCl 10 mg 12/04/24 09:10 12/07/24 10:08 Hydralazine Hcl 20 Mg/Ml Vial IV PUSH 10 mg TID LILIAN Administration Albumin Human 50 mls @ 999 mls/hr 11/27/24 06:51 Albutein IVPB 12/27/24 06:50 Q10M PRN HYPOTENSION Ibuprofen 800 mg in 200 mls @ 400 mls/hr 11/29/24 17:35 11/30/24 21:19 Caldolor 800 Mg/200 Ml IVPB Infused Q6H PRN Infusion Breakthrough Pain Rated 1-3 or NPO Cefepime HCl 1 gm in 50 mls @ 100 mls/hr 11/30/24 18:00 12/06/24 16:52 Maxipime 1 Gm/Ns 50 Ml IVPB 100 mls/hr DAILY@1800 LILIAN Administration Metronidazole 500 mg in 100 mls @ 100 mls/hr 11/30/24 14:00 12/07/24 05:41 Flagyl 500 Mg/Iso Soln 100 Ml IVPB 100 mls/hr Q8H LILIAN Administration Dextrose 1,000 mls @ 100 mls/hr 11/30/24 16:34 Dextrose 5% 1,000 Ml IVPB PRN PRN Hypoglycemia Protocol Dextrose 1,000 mls @ 50 mls/hr 12/03/24 12:25 Dextrose 10% IV CONT .Q20H PRN if PN is interrupted Amino Acids/Electrolytes/Dextrose 1,000 mls @ 80 mls/hr 12/03/24 15:00 12/07/24 10:09 Clinimix E 4.25%/5% Solution IV CONT 80 mls/hr .[id number] LILIAN Administration Protocol Fat Emulsion Intravenous 250 mls @ 20.833 mls/hr 12/05/24 09:00 12/07/24 10:08 Lipids 20% IVPB 20.83 mls/hr Q24H LILIAN Administration Insulin Aspart 2 - 5 units 12/01/24 00:00 12/07/24 11:52 Insulin Aspart (*Bkc) 100 Units/Ml SUB-Q Not Given Q6HR [facility] Protocol Naloxone HCl 0.1 mg 11/29/24 17:35 Naloxone Hcl 0.4 Mg/Ml Vial IV PUSH Q2M PRN Opiate Reversal Ondansetron HCl 4 mg 11/26/24 14:10 12/06/24 08:44 Ondansetron Inj 4 Mg/2 Ml Vial IV PUSH 4 mg Q4H PRN Administration Nausea Oxycodone/Acetaminophen 0.5 tablet 11/29/24 17:35 Oxycodone/Acetaminophen (*Crx) 5-325 Mg Tablet PO Q4H PRN Pain Rated 4-6 Pantoprazole Sodium 40 mg 12/02/24 12:00 12/07/24 10:05 Pantoprazole 40 Mg Tablet PO Not Given QAM LILIAN Polyethylene Glycol 17 gm 11/30/24 09:00 11/30/24 08:29 Polyethylene Glycol 3350 17 Gm Powd.Pack PO 17 gm QAM LILIAN Administration Senna/Docusate Sodium 2 tab 11/29/24 21:00 11/29/24 20:29 Senna/Docusate Sodium Tablet PO 2 tab HS LILIAN Administration Vancomycin HCl 1 each 11/26/24 13:16 Vancomycin For Hemodialysis IVPB PRN PRN Vancomycin Protocol Radiology Results: ITS Impressions Foot X-Ray 11/26/24 12:58 Impression: 1: Moderate soft tissue swelling of the second digit. The distal phalanx not well visualized. Cannot exclude osteomyelitis. 2: Extra-articular fracture left fifth proximal phalanx. Duplex Scan Lower Extremity Artery 11/26/24 13:53 IMPRESSION: 1. No evident hemodynamically significant stenosis either by follow-up elevation of peak systolic velocities or by direct visualization grayscale imaging with brisk systolic upstrokes arteries of the bilateral lower limbs. Head CT 11/30/24 12:22 IMPRESSION: 1. . 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 No acute intracranial process. 2. Age-related changes including mild diffuse volume loss and moderate scattered white matter hypoattenuation consistent with chronic small vessel ischemic disease. Chest X-Ray 11/30/24 12:37 IMPRESSION: 1. Opacities in the right mid and lower lung zones which could represent atelectasis, aspiration and/or pneumonia. 2. Small right pleural effusion. Foot MRI 12/05/24 13:43 IMPRESSION: Status post transmetatarsal amputation of the second digit. 2.4 x 1.8 x 3.3 cm peripherally enhancing fluid collection at the second interspace at the level the proximal metatarsal shafts is compatible with abscess. Diffuse myositis of the plantar musculature of the foot. No evidence for osteomyelitis or fracture. Susceptibility artifact at the operative bed and dorsal soft tissues at the second digit region could reflect artifact and/or open soft tissue wound. Correlate with physical exam. Modified Barium Swallow 12/07/24 09:32 IMPRESSION: Pharyngeal dysphagia with laryngeal penetration and aspiration. Please correlate with speech pathologist findings and specific feeding recommendations. Labs Labs: Laboratory Tests 12/07/24 05:30 12/07/24 05:30 Glucose 109 Calcium 8.2 L Phosphorus 5.3 H Magnesium 2.2 Albumin 3.0 L Microbiology 12/01/24 01:10 Blood Blood Culture - Final Methicillin Resis Staph Aureus 12/01/24 01:10 Blood Blood Culture - Final
--- NOTE | 2024-12-07 11:02 | PCSTNOTE ---
Please refer to the Modified Barium Swallow Evaluation in the EMR. Third MBS: The pt was seen for a third MBS over the course of one week to determine the possibility of returning to any form of oral intake. When asked how he was feeling, he stated not good but when asked if he had pain he reported no. The pt was seated for a lateral view and presented with 5 ml thin liquid via a spoon, pudding consistency barium via a spoon, cracker coated with barium pudding via a spoon, and a cup sip of thin liquid barium. The oral stages were WFL; during the pharyngeal stage the following was exhibited: reduced laryngeal elevation as evidenced by laryngeal penetration during the swallow of thin liquids and pyriform sinus residue (trace to mod across consistencies); reduced tongue base retraction as evidenced by vallecular residue (moderate with the pudding and cracker trials). Aspiration occurred during the swallow of thin liquid when taken via a cup sip (with the chin tuck) and after the trials of pudding and cracker. Aspiration was essentially silent but a delayed cough after testing was noted. Impression: severe dysphagia due to instances of silent aspiration Recommendations: NPO with alternative means of nutrition; ST for dysphagia tx and ST upon dc.
[2024-12-07 11:51] LABS: Glucose Point of Care 136 mg/dl (65-105)
--- NOTE | 2024-12-07 13:03 | PCNFU ---
Nutrition Follow-Up Complete: Swallowing Difficulties as related to Dysphagia as evidenced by NPO. Goal:Meet estimated nutritional needs Pt progressing towards goal. Pt current nutrition is PPN @ 80ml/hr. Nutrition recommendation: Discontinue PPN, recommend G tube placement and tube feedings for nutrition support Last recorded weight is 93 kg. Bowel Motility: +BM 12/07 Labs Reviewed: Hgb:8.9, HCT:29.2, alb:3.0, BUN:38, Cr:5.14, Phos:5.3 Meds Noted: miralax, novolog, protonix, colace, senokot Skin: WNL Additional Notes: Pt on PPN @ 80ml/hr currently, providing 1183kcals, 82g protein. Failed MBS today with recommendations to remain NPO. Possible G tube placement tomorrow. Recommend to initiate tube feeds once tube is placed and cleared for use. Tube feeding recommendation is for Nepro, start at 20ml/hr and advance by 10mls q 4 hrs to goal rate of 50ml/hr to provide 1980kcals, 89g protein, 800ml free water. Recommend a flush of 175ml q 4 hrs to total 1850ml free water per 24 hrs. Will monitor weight, labs, skin, tube feedings, meds every Friday and Friday
--- NOTE | 2024-12-07 13:13 | PCDIET ---
Tube feeding recommendation is for Nepro, start at 20ml/hr and advance by 10mls q 4 hrs to goal rate of 50ml/hr to provide 1980kcals, 89g protein, 800ml free water. Recommend a flush of 175ml q 4 hrs to total 1850ml free water per 24 hrs.
[2024-12-07 17:29] LABS: Glucose Point of Care 144 mg/dl (65-105)
[2024-12-07] MEDS: CEFEPIME 1 GM/NS 50 ML 1 GM/50 ML BAG IVPB (17:48)
--- NOTE | 2024-12-07 18:35 | WPDGICN ---
Assessment and Plan Assessment and plan (1) Dysphagia as late effect of cerebrovascular accident (CVA): Code(s): I69.391 - Dysphagia following cerebral infarction Status: Acute Assessment and Plan: Based on today's modified barium swallow study, which clearly demonstrated significant dysphagia, the patient is at high risk for aspiration and is therefore considered a good candidate for PEG tube placement for long-term nutritional support. However, the family is currently deliberating whether to proceed with this intervention. In the interim, given the patient's intact gastrointestinal tract, we recommend transitioning from parenteral nutrition to enteral nutrition via nasogastric tube, to avoid complications associated with parenteral nutrition. GI Consult Note Consult date/time: 12/07/24 18:35 Reason for consult: Dysphagia HPI: Savage Yun is a 59-year-old male admitted on November 26, 2024, with a complex medical history including hypertension, poorly controlled diabetes mellitus, sequelae of CVA, and end-stage renal disease on dialysis. He also has diastolic dysfunction and is a former smoker. His current admission is due to gangrene of the left second toe, which necessitated amputation. He is now scheduled for a second amputation of the foot given a poor clinical course and persistent infection. A PEG tube placement consultation has been requested due to a modified barium swallow demonstrating dysphagia and concurrent aspiration pneumonia. He is currently receiving parenteral nutrition. Review of Systems Review of Systems: All systems reviewed & are unremarkable except as noted in HPI and below PMFSH Past Medical History Medical History Aortic stenosis mod to severe Tobacco abuse Elevated d-dimer Heart failure with preserved ejection fraction Echo in November 2022 showed normal LV size and function with an EF of 50 to 55%, mildly increased left ventricular wall thickness, and grade 2 diastolic dysfunction. 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 Cerebrovascular accident (02/2019) Anxiety Hyperlipidemia Hypertension Surgical History Surgical History History of cardiac catheterization (2019) History of colonoscopy with polypectomy Family History Family History Mother Carcinoma of colon Father Family history of diabetes mellitus in first degree relative Grandparent Diabetes mellitus Social History Social History Social History: Surrogate medical decision maker: Raina Yun, sibling. Code status: Do not resuscitate. Smoking packs per day: 0.5 Smoking cigarettes per day: 10.0 Years smoked: 40 Smoking pack-years: 20.00 Smoking status: Current every day smoker Alcohol intake: never Substance use: never Substance use type: does not use Do You Feel Safe in your Home?: Yes Lack of Transportation: YES Lack of Food: Never True Current Housing: I Have Housing Concerned About Future Housing: No Difficulty Paying Gas/Electric Bills: No Difficulty Paying for Meds: No Currently Unemployed: No Education: High School Diploma/GED Difficulty w/ Childcare or Family Care: No Living arrangements: with family Additional living arrangements comments: Lives in [place]. Has 4 children. Retired [employer]. Additional occupation/education comments: [employer]. Spiritual care concerns: No Meds Home Medications and Allergies Home Medications ?Medication ?Instructions ?Recorded ?Confirmed ?Type amlodipine 10 mg tablet 10 mg PO DAILY 01/25/22 11/26/24 History atorvastatin 80 mg tablet 80 mg PO DAILY 01/25/22 11/26/24 History carvedilol 25 mg tablet 25 mg PO BID 01/25/22 11/26/24 History clopidogrel 75 mg tablet 75 mg PO DAILY 01/25/22 11/26/24 History hydralazine 50 mg tablet 50 mg PO TID 08/11/23 11/26/24 History Allergies Allergy/AdvReac Type Severity Reaction Status Date / Time tree nut Allergy Intermediate Itching Verified 11/29/24 15:34 Penicillins Allergy Unknown Unknown Verified 11/29/24 15:34 Vital Signs Vital Signs - 24 hr 12/06/24 20:00 12/06/24 20:00 12/06/24 21:47 Temperature 99.9 F H Pulse Rate 75 82 Respiratory Rate 18 Blood Pressure 152/80 H Pulse Oximetry 100 Oxygen Delivery Room Air 12/07/24 00:00 12/07/24 04:00 12/07/24 06:00 Temperature 98.8 F Pulse Rate 78 66 68 Respiratory Rate 18 Blood Pressure 188/74 H Pulse Oximetry 97 Oxygen Delivery 12/07/24 08:00 12/07/24 08:00 12/07/24 12:00 Temperature Pulse Rate 68 72 Respiratory Rate Blood Pressure Pulse Oximetry Oxygen Delivery Room Air 12/07/24 14:00 12/07/24 16:00 Temperature 97.9 F Pulse Rate 71 71 Respiratory Rate 20 Blood Pressure 171/69 H Pulse Oximetry 97 Oxygen Delivery Exam Narrative: General: WD/WN male in NAD Heart: normal S1 and S2; no rub Lungs: clear anteriorly Abdomen: soft, nontender, nondistended, positive bowel sounds Extremities: no cyanosis or clubbing; + edema left foot Skin: left foot dressings in place Results Labs 12/07/24 05:30 12/07/24 05:30 Labs: Short CBC 12/07/24 Range/Units 05:30 WBC 12.6 H (4.5-10.0) K/mm3 Hgb 8.9 L (14.0-18.0) g/dL Hct 29.2 L (42.0-52.0) % Plt Count 280 (150-375) k/mm3 BMP 12/07/24 05:30 Sodium 139 Potassium 4.3 Chloride 102 Carbon Dioxide 27 BUN 38 H D Creatinine 5.14 H Glucose 109 Calcium 8.2 L Liver Function 12/07/24 Range/Units 05:30 Albumin 3.0 L (3.5-5.1) g/dL
[2024-12-08] VITALS (27 sets, daily range): BP systolic 83–166; BP diastolic 42–87; PULSE 59–86; RESP 16–19; TEMP 36.2–37.1; O2SAT 94–100
[2024-12-08] MEDS: AMINO ACIDS 4.25%/D5W/LYTES/CA 1,000 ML 80 ML IV CONT ×2 (00:32→18:44)
[2024-12-08] MEDS: metroNIDAZOLE 500 MG/ISO 100ML 500 MG/100 ML BAG 100 MG IVPB ×3 (05:21→20:40)
[2024-12-08 05:42] LABS: Basophils Absolute Auto 0.1 K/mm3 (0.0-0.1); Basophils Percent Auto 0.7 % (0.2-1.2); Eosinophils Absolute Auto 0.2 K/mm3 (0-0.3); Eosinophils Percent Auto 1.6 % (0-4.4); Hematocrit 30.2 % (42.0-52.0); Hemoglobin 9.2 g/dL (14.0-18.0); Immature Granulocyte Absolute 0.21 K/mm3 (0.00-0.031); Immature Granulocyte Percent A 1.6 % (0-0.5); Lymphocytes Absolute Auto 1.08 K/mm3 (0.9-3.2); Lymphocytes Percent Auto 8.3 % (18.3-44.2); Mean Corpuscular HGB Conc 30.5 g/dl (32-36); Mean Corpuscular Hemoglobin 28.4 pg (26-34); Mean Corpuscular Volume 93.2 fl (80-100); Mean Platelet Volume 10.8 fl (7.4-10.4); Monocytes Absolute Auto 1.1 K/mm3 (0.1-0.6); Monocytes Percent Auto 8.1 % (2.6-8.5); Neutrophils Absolute Auto 10.4 K/mm3 (1.3-6.7); Neutrophils Percent Auto 79.7 % (45.5-73.1); Platelet Count Result 285 k/mm3 (150-375); Red Blood Count 3.24 M/mm3 (4.6-6.20); Red Cell Distribution Width 14.8 % (11.5-14.5)
[2024-12-08 06:03] LABS: Vancomycin Trough 19.1 ug/mL (10.0-20.0)
[2024-12-08 06:11] LABS: Triglycerides 131 mg/dL (<150)
[2024-12-08 06:37] LABS: Anion Gap 14 mmol/L (4-12); Blood Urea Nitrogen 56 mg/dL (9-20); Calcium 7.8 mg/dL (8.4-10.2); Carbon Dioxide 25 mmol/L (22-30); Chloride 99 mmol/L (98-107); Estimated CRCL calculation 13 ml/min; Estimated Glomerular Filt Rate 9; Glucose 157 mg/dL (65-110); Magnesium 2.4 mg/dL (1.6-2.3); Phosphorus 7.2 mg/dL (2.5-4.5); Potassium 4.3 mmol/L (3.4-5.0); Sodium 138 mmol/L (137-145)
--- NOTE | 2024-12-08 07:05 | WPDGIPROGNO ---
Progress Note: A&P Assessment and Plan (1) Dysphagia: Code(s): R13.10 - Dysphagia, unspecified Status: Acute Assessment and Plan: The patient has evidence of aspiration and is a candidate for PEG placement. As discussed yesterday, we are waiting for the final decision From the patient and family to proceed with PEG placement. He will have foot amputation today. Subjective Date/time seen: 12/08/24 07:05 Objective Data Vital Signs Vital Signs: Vital Signs - 24 hr 12/07/24 08:00 12/07/24 08:00 12/07/24 12:00 Temperature Pulse Rate 68 72 Respiratory Rate Blood Pressure Pulse Oximetry Oxygen Delivery Room Air 12/07/24 14:00 12/07/24 16:00 12/07/24 20:00 Temperature 97.9 F Pulse Rate 71 71 Respiratory Rate 20 Blood Pressure 171/69 H Pulse Oximetry 97 Oxygen Delivery Room Air 12/07/24 20:00 12/07/24 21:46 12/08/24 00:00 Temperature 98.2 F Pulse Rate 67 67 70 Respiratory Rate 18 Blood Pressure 165/78 H Pulse Oximetry 95 Oxygen Delivery 12/08/24 04:00 12/08/24 04:16 Temperature 97.7 F Pulse Rate 60 68 Respiratory Rate 18 Blood Pressure 165/78 H Pulse Oximetry 94 Oxygen Delivery Intake/Output Intake/Output: Intake & Output 12/05/24 12/06/24 12/07/24 12/08/24 23:59 23:59 23:59 23:59 Intake Total 2600 250 2550 Output Total 100 3100 50 Balance 2500 -2850 2500 Meds/Results Medications: Active Medications Generic Name Dose Route Start Last Admin Trade Name Freq PRN Reason Stop Dose Admin Amlodipine Besylate 10 mg 11/27/24 09:00 11/30/24 08:30 Amlodipine Besylate 10 Mg Tablet PO 10 mg DAILY LILIAN Administration Atorvastatin Calcium 80 mg 11/27/24 09:00 12/01/24 11:36 Atorvastatin 40 Mg Tablet PO Not Given DAILY LILIAN Carvedilol 25 mg 11/26/24 21:00 11/30/24 08:29 Carvedilol 25 Mg Tablet PO 25 mg Q12HR LILIAN Administration Clopidogrel Bisulfate 75 mg 11/27/24 09:00 12/06/24 09:32 Clopidogrel Bisulfate 75 Mg Tablet PO Not Given DAILY LILIAN Collagenase 1 applic 12/03/24 21:00 12/07/24 21:36 Collagenase Oint 30 Gm Tube TOPICAL 1 applic Q12HR LILIAN Administration Dextrose 12.5 gm 11/30/24 16:34 Dextrose 50% 25 Gm/50 Ml Syringe IV PUSH PRN PRN Hypoglycemia Protocol Docusate Sodium 100 mg 11/26/24 17:00 11/30/24 17:21 Docusate Sodium 100 Mg Capsule PO Not Given BID LILIAN Epoetin Romain-epbx 10,000 units 12/08/24 18:00 Epoetin Romain-Epbx 10,000 Units/Ml Vial IV PUSH 12/08/24 18:01 ONCE ONE Glucagon 1 mg 11/30/24 16:34 Glucagon For Inj 1 Mg Vial IM PRN PRN Hypoglycemia Protocol Glucose 15 gm 11/30/24 16:34 Glucose Oral Gel 15 Gm Of Glucse In 37.5 Gm Tube PO PRN PRN Hypoglycemia Protocol Hydralazine HCl 50 mg 11/26/24 17:00 11/30/24 12:49 Hydralazine Hcl 50 Mg Tablet PO Not Given TID [facility] Hydralazine HCl 10 mg 12/04/24 09:10 12/07/24 17:48 Hydralazine Hcl 20 Mg/Ml Vial IV PUSH 10 mg TID LILIAN Administration Albumin Human 50 mls @ 999 mls/hr 11/27/24 06:51 Albutein IVPB 12/27/24 06:50 Q10M PRN HYPOTENSION Ibuprofen 800 mg in 200 mls @ 400 mls/hr 11/29/24 17:35 11/30/24 21:19 Caldolor 800 Mg/200 Ml IVPB Infused Q6H PRN Infusion Breakthrough Pain Rated 1-3 or NPO Cefepime HCl 1 gm in 50 mls @ 100 mls/hr 11/30/24 18:00 12/07/24 17:48 Maxipime 1 Gm/Ns 50 Ml IVPB 100 mls/hr DAILY@1800 LILIAN Administration Metronidazole 500 mg in 100 mls @ 100 mls/hr 11/30/24 14:00 12/08/24 05:21 Flagyl 500 Mg/Iso Soln 100 Ml IVPB 100 mls/hr Q8H LILIAN Administration Dextrose 1,000 mls @ 100 mls/hr 11/30/24 16:34 Dextrose 5% 1,000 Ml IVPB PRN PRN Hypoglycemia Protocol Dextrose 1,000 mls @ 50 mls/hr 12/03/24 12:25 Dextrose 10% IV CONT .Q20H PRN if PN is interrupted Amino Acids/Electrolytes/Dextrose 1,000 mls @ 80 mls/hr 12/03/24 15:00 12/08/24 00:32 Clinimix E 4.25%/5% Solution IV CONT 80 mls/hr .[id number] LILIAN Administration Protocol Fat Emulsion Intravenous 250 mls @ 20.833 mls/hr 12/05/24 09:00 12/07/24 10:08 Lipids 20% IVPB 20.83 mls/hr Q24H LILIAN Administration Vancomycin HCl 750 mg in 250 mls @ 250 mls/hr 12/08/24 20:00 Vancomycin 750 Mg/Ns 250 Ml IVPB 12/08/24 20:59 ONCE ONE Insulin Aspart 2 - 5 units 12/01/24 00:00 12/08/24 02:25 Insulin Aspart (*Bkc) 100 Units/Ml SUB-Q Not Given Q6HR [facility] Protocol Naloxone HCl 0.1 mg 11/29/24 17:35 Naloxone Hcl 0.4 Mg/Ml Vial IV PUSH Q2M PRN Opiate Reversal Ondansetron HCl 4 mg 11/26/24 14:10 12/06/24 08:44 Ondansetron Inj 4 Mg/2 Ml Vial IV PUSH 4 mg Q4H PRN Administration Nausea Oxycodone/Acetaminophen 0.5 tablet 11/29/24 17:35 Oxycodone/Acetaminophen (*Crx) 5-325 Mg Tablet PO Q4H PRN Pain Rated 4-6 Pantoprazole Sodium 40 mg 12/02/24 12:00 12/07/24 10:05 Pantoprazole 40 Mg Tablet PO Not Given QAM LILIAN Polyethylene Glycol 17 gm 11/30/24 09:00 11/30/24 08:29 Polyethylene Glycol 3350 17 Gm Powd.Pack PO 17 gm QAM LILIAN Administration Senna/Docusate Sodium 2 tab 11/29/24 21:00 11/29/24 20:29 Senna/Docusate Sodium Tablet PO 2 tab HS LILIAN Administration Vancomycin HCl 1 each 11/26/24 13:16 Vancomycin For Hemodialysis IVPB PRN PRN Vancomycin Protocol Radiology Results: ITS Impressions Foot X-Ray 11/26/24 12:58 Impression: 1: Moderate soft tissue swelling of the second digit. The distal phalanx not well visualized. Cannot exclude osteomyelitis. 2: Extra-articular fracture left fifth proximal phalanx. Duplex Scan Lower Extremity Artery 11/26/24 13:53 IMPRESSION: 1. No evident hemodynamically significant stenosis either by follow-up elevation of peak systolic velocities or by direct visualization grayscale imaging with brisk systolic upstrokes arteries of the bilateral lower limbs. Head CT 11/30/24 12:22 IMPRESSION: 1. . 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 No acute intracranial process. 2. Age-related changes including mild diffuse volume loss and moderate scattered white matter hypoattenuation consistent with chronic small vessel ischemic disease. Chest X-Ray 11/30/24 12:37 IMPRESSION: 1. Opacities in the right mid and lower lung zones which could represent atelectasis, aspiration and/or pneumonia. 2. Small right pleural effusion. Foot MRI 12/05/24 13:43 IMPRESSION: Status post transmetatarsal amputation of the second digit. 2.4 x 1.8 x 3.3 cm peripherally enhancing fluid collection at the second interspace at the level the proximal metatarsal shafts is compatible with abscess. Diffuse myositis of the plantar musculature of the foot. No evidence for osteomyelitis or fracture. Susceptibility artifact at the operative bed and dorsal soft tissues at the second digit region could reflect artifact and/or open soft tissue wound. Correlate with physical exam. Modified Barium Swallow 12/07/24 09:32 IMPRESSION: Pharyngeal dysphagia with laryngeal penetration and aspiration. Please correlate with speech pathologist findings and specific feeding recommendations. Labs Labs: Laboratory Results - last 24 hr 12/07/24 12/07/24 12/07/24 01:21 04:27 06:26 WBC RBC Hgb Hct MCV MCH MCHC RDW Plt Count MPV Immature Gran % (Auto) Neut % (Auto) Lymph % (Auto) [place] % (Auto) Eos % (Auto) Baso % (Auto) Lymph # (Auto) [place] # (Auto) Eos # (Auto) Baso # (Auto) Abs Immat Gran (auto) Absolute Neuts (auto) Absolute Nucleated RBC Nucleated RBC % Sodium Potassium Chloride Carbon Dioxide Anion Gap BUN Creatinine Estim Creat Clear Calc Estimated GFR Glucose POC Capillary Glucose 114 H 105 Calcium Phosphorus Magnesium Albumin Triglycerides Vancomycin Trough C. difficile (PCR) Negative 12/07/24 12/07/24 12/07/24 08:24 11:44 17:26 WBC RBC Hgb Hct MCV MCH MCHC RDW Plt Count MPV Immature Gran % (Auto) Neut % (Auto) Lymph % (Auto) [place] % (Auto) Eos % (Auto) Baso % (Auto) Lymph # (Auto) [place] # (Auto) Eos # (Auto) Baso # (Auto) Abs Immat Gran (auto) Absolute Neuts (auto) Absolute Nucleated RBC Nucleated RBC % Sodium Potassium Chloride Carbon Dioxide Anion Gap BUN Creatinine Estim Creat Clear Calc Estimated GFR Glucose POC Capillary Glucose 111 H 136 H 144 H Calcium Phosphorus Magnesium Albumin Triglycerides Vancomycin Trough C. difficile (PCR) 12/08/24 12/08/24 05:17 05:18 WBC 13.0 H RBC 3.24 L Hgb 9.2 L Hct 30.2 L MCV 93.2 MCH 28.4 MCHC 30.5 L RDW 14.8 H Plt Count 285 MPV 10.8 H Immature Gran % (Auto) 1.6 H Neut % (Auto) 79.7 H Lymph % (Auto) 8.3 L [place] % (Auto) 8.1 Eos % (Auto) 1.6 Baso % (Auto) 0.7 Lymph # (Auto) 1.08 [place] # (Auto) 1.1 H Eos # (Auto) 0.2 Baso # (Auto) 0.1 Abs Immat Gran (auto) 0.21 H Absolute Neuts (auto) 10.4 H Absolute Nucleated RBC 0.000 Nucleated RBC % 0.0 Sodium 138 Potassium 4.3 Chloride 99 Carbon Dioxide 25 Anion Gap 14 H BUN 56 H D Creatinine 6.43 H Estim Creat Clear Calc 13 Estimated GFR 9 L Glucose 157 H POC Capillary Glucose Calcium 7.8 L Phosphorus 7.2 H Magnesium 2.4 H Albumin 3.0 L Triglycerides 131 Vancomycin Trough 19.1 C. difficile (PCR)
[2024-12-08 07:12] LABS: Glucose Point of Care 145 mg/dl (65-105)
--- NOTE | 2024-12-08 08:33 | P.PNIM_ITS ---
Progress Note: A&P Assessment and Plan (1) Bacteremia: Code(s): R78.81 - Bacteremia Status: Acute Assessment and Plan: Blood cultures obtained 11/26: staph aureus, Echo LVEF 60-65% with abnormal diastolic function and an abnormal appearing aortic valve that is heavily calcified and has at least moderate stenosis. KATLIN completed today with Dr Michelle: KATLIN negative for infective endocarditis. KATLIN shows severe aortic stenosis with ALBINO of 0.9cm2. Will arrange outpatient follow up for his valvular disease. Avoid hypotension Patient is follow up culture x1 bottle on 12/01/2024 still remains positive with Staphylococcus aureus follow-up cultures from 12/03 positive need source control will likely need further surgical intervention noted by surgery that there was some necrotic tissue superficial to the tendon. Base of the wound no granulation tissue and quite a bit of slough. Surgery spoke with patient and family regarding the need for amputation with List Oliver of the left foot to preserve the heel verses a left below-knee amputation which is a real possible since the wound is non-healing and we need source control MRI Results: Status post transmetatarsal amputation of the second digit. 2.4 x 1.8 x 3.3 cm peripherally enhancing fluid collection at the second interspace at the level the proximal metatarsal shafts is compatible with abscess. Diffuse myositis of the plantar musculature of the foot. No evidence for osteomyelitis or fracture. Susceptibility artifact at the operative bed and dorsal soft tissues at the second digit region could reflect artifact and/or open soft tissue wound. Correlate with physical exam. * Patient remains on vancomycin per Sensitivities * Repeat cultures * will repeat blood cultures once follow-up surgery is completed plan for surgery 12/08/2024 follow-up cultures placed for 12/11/2024 (2) Diabetic infection of left foot: Code(s): E11.628 - Type 2 diabetes mellitus with other skin complications; L08.9 - Local infection of the skin and subcutaneous tissue, unspecified Status: Acute Assessment and Plan: Erythema and edema to the dorsal aspect of the left foot extending to the ankle. Unable to palpate DP pulses. Black foul smelling 2nd toe of the left foot. Foot XR left showed moderate soft tissue swelling of the second digit with poor visualization fo the distal phalanx. Osteomyelitis cannot be rule out. Also extra articular fracture to the left fifth proximal phalanx, Duplex showed No evident hemodynamically significant stenosis either by follow-up elevation of peak systolic velocities or by direct visualization grayscale imaging with brisk systolic upstrokes arteries of the bilateral lower limbs. * continue with IV cefepime, Flagyl and vancomycin * Surgery consulted and performed a s/p open transmetatarsal amputation left 2nd toe on 11/[address] Goodson * MRI Pending may need further surgical intervention currently patient is not exhibiting his bacteremia * Dressing changes per surgery SEE ABOVE #1 (3) Necrotizing soft tissue infection: Code(s): M79.89 - Other specified soft tissue disorders Status: Acute Assessment and Plan: Abscess noted on MRI that is not evident on exam. Patient does have areas on the edge of his wound that show evidence of necrosis and continuing necrotizing soft tissue infection. SEE ABOVE #2 (4) Gangrenous toe: Code(s): I96 - Gangrene, not elsewhere classified Status: Acute Assessment and Plan: See plan above (5) Aspiration pneumonia: Code(s): J69.0 - Pneumonitis due to inhalation of food and vomit Status: Acute Assessment and Plan: Per patient son, the patient has been coughing with meals for a few months. CXR: Opacities in the right mid and lower lung zones which could represent atelectasis, aspiration and/or pneumonia. Small right pleural effusion. Patient continues to fail modified barium swallow at this time will initiate PPN do not want to place a PICC quite yet due to patient's bacteremia that is not clearing but likely is going to be necessary not only to initiate TPN med as well for long-term IV antibiotic therapy. Will continue with PPN/TPN and plan on follow-up MBS in a few days will need to discuss with family about placing PEG tube but still once again have some reservation due to patient's continued b acteremia. Failed 3 MBS GI consulted for peg tube placement unsure if they will wait until we have source control * NPO * started PPN * Failed MBS x 3 * GI consulted for Peg tube placement * Speech therapy following. * continue with current IV antibiotics (6) Aortic stenosis: Code(s): I35.0 - Nonrheumatic aortic (valve) stenosis Status: Acute Assessment and Plan: Echo ordered to rule out endocarditis LVEF 60-65% with abnormal diastolic fu nction and an abnormal appearing aortic valve that is heavily calcified and has at least moderate stenosis. * Recommend cardiology follow up outpatient. (7) Type 2 diabetes mellitus: Code(s): E11.9 - Type 2 diabetes mellitus without complications Status: Acute Assessment and Plan: * hypoglycemia protocol * POC blood glucose Q6hr * correct regimen ordered - low dose TIDWM currently on dextrose 5 can no home medication * A1C 5.9 in desired range (8) Anemia: Code(s): D64.9 - Anemia, unspecified Status: Chronic Assessment and Plan: Chronic, likely secondary to ESRD * Given epoetin 10,000 units x1 on 11/27 * No signs of active bleeding * Monitor H&H Tranfuse of hgb <7.0 (9) Carotid artery disease: Qualifiers: Carotid artery disease type: stenosis Laterality: unspecified laterality Qualified Code(s): I65.29 - Occlusion and stenosis of unspecified carotid artery Code(s): I77.9 - Disorder of arteries and arterioles, unspecified Status: Chronic Assessment and Plan: * Continue Plavix post surgery (10) Hypertension: Qualifiers: Hypertension type: unspecified Qualified Code(s): I10 - Essential (primary) hypertension Code(s): I10 - Essential (primary) hypertension Status: Chronic Assessment and Plan: * continued amlodipine 10 mg daily, coreg 25 mg BID, hydralazine 50 mg TID placed on hold due to patient NPO * hydralazine 10 mg IV PRN * blood pressures stable, continue to monitor (11) End stage renal disease on dialysis: Code(s): N18.6 - End stage renal disease; Z99.2 - Dependence on renal dialysis Status: Acute Assessment and Plan: * ESRD on dialysis [facility] * Nephrology consulted * avoid nephrotoxic medications * pharmacy to dose antibiotic (12) Heart failure with preserved ejection fraction: Qualifiers: Heart failure chronicity: unspecified Qualified Code(s): I50.30 - Unspecified diastolic (congestive) heart failure Code(s): I50.30 - Unspecified diastolic (congestive) heart failure Status: Chronic Assessment and Plan: Chronic, does not appear in acute exacerbation, Echo 07/2023 showed LVEF 40-45% with grade 2 diastolic dysfunction Echo ordered to rule out endocarditis LVEF 60-65% with abnormal diastolic function and an abnormal appearing aortic valve that is heavily calcified and has at least moderate stenosis. 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 His voice was increasingly garbled and his responses were slow. Remained AOx3 with otherwise benign neuro exam. Likely metabolic vs drug induced (received morphine overnight) encephalopathy. 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 No acute intracranial process. Age-related changes including mild diffuse volume loss and moderate scattered white matter hypoattenuation consistent with chronic small vessel ischemic disease. Mental status improving patient with flat affect. - Morphine was discontinued - ABG: pH 7.538, pCO2 35.8, pO2 53.2, HCO3 29.8. Started on 2L NC for hypoxemia. - Lactic WNL. Procal elevated at 6.1. Glucose WNL. Plan Code status: Full code per patient DVT prophylaxis: Scd Stress ulcer prophylaxis: Protonix 40 daily PT/OT notes: Pending Disposition: patient continues admission for treatment necrotic left toe with amputation and bacteremia for set of cultures are pending for clearance will continue with current treatment plan patient failed his MBS again initiated on PPN some concern placing PICC due to continued bacteremia that is clearing need source control likely need further surgical intervention if continues through have positive blood cultures hopefully we can get some clearance of his bacteremia prior to having to place a PICC or PEG tube. Planned for surgery today follow-up cultures in 2 days failed [facility] consult for PEG tube placement. Subjective Date/time seen: 12/08/24 08:33 Interval history: No overnight events reported. Plan for surgery today. Going for dialysis. Peg tube placement scheduled for Friday. Presented with black left toe. Review of Systems Review of Systems: All systems reviewed & are unremarkable except as noted in HPI and below Exam Narrative: General: NAD male lying in bed HEENT: Normocephalic. Chest: Clear to auscultation throughout CV: RRR Abd: Abdomen was soft. N/V noted during assessment Ext: LT foot wound second metatarsal noticeable necrotic tissue around the wound bed with erythema, and moderate slough. Covered with dressing currently. Left upper arm fistula Neuro: Patient remains AOx3 on assessment, slow to respond with mild slurred speech family reported at baseline Psych: Flat affect Objective Data Vital Signs Vital Signs: Vital Signs - 24 hr 12/07/24 12:00 12/07/24 14:00 12/07/24 16:00 Temperature 97.9 F Pulse Rate 72 71 71 Respiratory Rate 20 Blood Pressure 171/69 H Pulse Oximetry 97 Oxygen Delivery 12/07/24 20:00 12/07/24 20:00 12/07/24 21:46 Temperature 98.2 F Pulse Rate 67 67 Respiratory Rate 18 Blood Pressure 165/78 H Pulse Oximetry 95 Oxygen Delivery Room Air 12/08/24 00:00 12/08/24 04:00 12/08/24 04:16 Temperature 97.7 F Pulse Rate 70 60 68 Respiratory Rate 18 Blood Pressure 165/78 H Pulse Oximetry 94 Oxygen Delivery Intake/Output Intake/Output: Intake & Output 12/05/24 12/06/24 12/07/24 12/08/24 23:59 23:59 23:59 23:59 Intake Total 2600 250 2550 0 Output Total 100 3100 50 Balance 2500 -2850 2500 0 Meds/Results Medications: Active Medications Generic Name Dose Route Start Last Admin Trade Name Freq PRN Reason Stop Dose Admin Amlodipine Besylate 10 mg 11/27/24 09:00 11/30/24 08:30 Amlodipine Besylate 10 Mg Tablet PO 10 mg DAILY LILIAN Administration Atorvastatin Calcium 80 mg 11/27/24 09:00 12/01/24 11:36 Atorvastatin 40 Mg Tablet PO Not Given DAILY LILIAN Carvedilol 25 mg 11/26/24 21:00 11/30/24 08:29 Carvedilol 25 Mg Tablet PO 25 mg Q12HR LILIAN Administration Clopidogrel Bisulfate 75 mg 11/27/24 09:00 12/06/24 09:32 Clopidogrel Bisulfate 75 Mg Tablet PO Not Given DAILY LILIAN Collagenase 1 applic 12/03/24 21:00 12/07/24 21:36 Collagenase Oint 30 Gm Tube TOPICAL 1 applic Q12HR LILIAN Administration Dextrose 12.5 gm 11/30/24 16:34 Dextrose 50% 25 Gm/50 Ml Syringe IV PUSH PRN PRN Hypoglycemia Protocol Docusate Sodium 100 mg 11/26/24 17:00 11/30/24 17:21 Docusate Sodium 100 Mg Capsule PO Not Given BID LILIAN Epoetin Romain-epbx 10,000 units 12/08/24 18:00 Epoetin Romain-Epbx 10,000 Units/Ml Vial IV PUSH 12/08/24 18:01 ONCE ONE Glucagon 1 mg 11/30/24 16:34 Glucagon For Inj 1 Mg Vial IM PRN PRN Hypoglycemia Protocol Glucose 15 gm 11/30/24 16:34 Glucose Oral Gel 15 Gm Of Glucse In 37.5 Gm Tube PO PRN PRN Hypoglycemia Protocol Hydralazine HCl 50 mg 11/26/24 17:00 11/30/24 12:49 Hydralazine Hcl 50 Mg Tablet PO Not Given TID LILIAN Hydralazine HCl 10 mg 12/04/24 09:10 12/07/24 17:48 Hydralazine Hcl 20 Mg/Ml Vial IV PUSH 10 mg TID LILIAN Administration Albumin Human 50 mls @ 999 mls/hr 11/27/24 06:51 Albutein IVPB 12/27/24 06:50 Q10M PRN HYPOTENSION Ibuprofen 800 mg in 200 mls @ 400 mls/hr 11/29/24 17:35 11/30/24 21:19 Caldolor 800 Mg/200 Ml IVPB Infused Q6H PRN Infusion Breakthrough Pain Rated 1-3 or NPO Cefepime HCl 1 gm in 50 mls @ 100 mls/hr 11/30/24 18:00 12/07/24 17:48 Maxipime 1 Gm/Ns 50 Ml IVPB 100 mls/hr DAILY@1800 LILIAN Administration Metronidazole 500 mg in 100 mls @ 100 mls/hr 11/30/24 14:00 12/08/24 05:21 Flagyl 500 Mg/Iso Soln 100 Ml IVPB 100 mls/hr Q8H LILIAN Administration Dextrose 1,000 mls @ 100 mls/hr 11/30/24 16:34 Dextrose 5% 1,000 Ml IVPB PRN PRN Hypoglycemia Protocol Dextrose 1,000 mls @ 50 mls/hr 12/03/24 12:25 Dextrose 10% IV CONT .Q20H PRN if PN is interrupted Amino Acids/Electrolytes/Dextrose 1,000 mls @ 80 mls/hr 12/03/24 15:00 12/08/24 00:32 Clinimix E 4.25%/5% Solution IV CONT 80 mls/hr .[id number] LILIAN Administration Protocol Fat Emulsion Intravenous 250 mls @ 20.833 mls/hr 12/05/24 09:00 12/07/24 10:08 Lipids 20% IVPB 20.83 mls/hr Q24H LILIAN Administration Vancomycin HCl 750 mg in 250 mls @ 250 mls/hr 12/08/24 20:00 Vancomycin 750 Mg/Ns 250 Ml IVPB 12/08/24 20:59 ONCE ONE Insulin Aspart 2 - 5 units 12/01/24 00:00 12/08/24 07:49 Insulin Aspart (*Bkc) 100 Units/Ml SUB-Q Not Given Q6HR [facility] Protocol Naloxone HCl 0.1 mg 11/29/24 17:35 Naloxone Hcl 0.4 Mg/Ml Vial IV PUSH Q2M PRN Opiate Reversal Ondansetron HCl 4 mg 11/26/24 14:10 12/06/24 08:44 Ondansetron Inj 4 Mg/2 Ml Vial IV PUSH 4 mg Q4H PRN Administration Nausea Oxycodone/Acetaminophen 0.5 tablet 11/29/24 17:35 Oxycodone/Acetaminophen (*Crx) 5-325 Mg Tablet PO Q4H PRN Pain Rated 4-6 Pantoprazole Sodium 40 mg 12/02/24 12:00 12/07/24 10:05 Pantoprazole 40 Mg Tablet PO Not Given QAM LILIAN Polyethylene Glycol 17 gm 11/30/24 09:00 11/30/24 08:29 Polyethylene Glycol 3350 17 Gm Powd.Pack PO 17 gm QAM LILIAN Administration Senna/Docusate Sodium 2 tab 11/29/24 21:00 11/29/24 20:29 Senna/Docusate Sodium Tablet PO 2 tab HS LILIAN Administration Vancomycin HCl 1 each 11/26/24 13:16 Vancomycin For Hemodialysis IVPB PRN PRN Vancomycin Protocol Radiology Results: ITS Impressions Foot X-Ray 11/26/24 12:58 Impression: 1: Moderate soft tissue swelling of the second digit. The distal phalanx not well visualized. Cannot exclude osteomyelitis. 2: Extra-articular fracture left fifth proximal phalanx. Duplex Scan Lower Extremity Artery 11/26/24 13:53 IMPRESSION: 1. No evident hemodynamically significant stenosis either by follow-up elevation of peak systolic velocities or by direct visualization grayscale imaging with brisk systolic upstrokes arteries of the bilateral lower limbs. Head CT 11/30/24 12:22 IMPRESSION: 1. . 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 No acute intracranial process. 2. Age-related changes including mild diffuse volume loss and moderate scattered white matter hypoattenuation consistent with chronic small vessel ischemic disease. Chest X-Ray 11/30/24 12:37 IMPRESSION: 1. Opacities in the right mid and lower lung zones which could represent atelectasis, aspiration and/or pneumonia. 2. Small right pleural effusion. Foot MRI 12/05/24 13:43 IMPRESSION: Status post transmetatarsal amputation of the second digit. 2.4 x 1.8 x 3.3 cm peripherally enhancing fluid collection at the second interspace at the level the proximal metatarsal shafts is compatible with abscess. Diffuse myositis of the plantar musculature of the foot. No evidence for osteomyelitis or fracture. Susceptibility artifact at the operative bed and dorsal soft tissues at the second digit region could reflect artifact and/or open soft tissue wound. Correl ate with physical exam. Modified Barium Swallow 12/07/24 09:32 IMPRESSION: Pharyngeal dysphagia with laryngeal penetration and aspiration. Please correlate with speech pathologist findings and specific feeding recommendations. Labs Labs: Laboratory Results - last 24 hr 12/07/24 12/07/24 12/08/24 11:44 17:26 00:28 WBC RBC Hgb Hct MCV MCH MCHC RDW Plt Count MPV Immature Gran % (Auto) Neut % (Auto) Lymph % (Auto) Swift % (Auto) Eos % (Auto) Baso % (Auto) Lymph # (Auto) Swift # (Auto) Eos # (Auto) Baso # (Auto) Abs Immat Gran (auto) Absolute Neuts (auto) Absolute Nucleated RBC Nucleated RBC % Sodium Potassium Chloride Carbon Dioxide Anion Gap BUN Creatinine Estim Creat Clear Calc Estimated GFR Glucose POC Capillary Glucose 136 H 144 H 145 H Calcium Phosphorus Magnesium Albumin Triglycerides Vancomycin Trough 12/08/24 12/08/24 05:17 05:18 WBC 13.0 H RBC 3.24 L Hgb 9.2 L Hct 30.2 L MCV 93.2 MCH 28.4 MCHC 30.5 L RDW 14.8 H Plt Count 285 MPV 10.8 H Immature Gran % (Auto) 1.6 H Neut % (Auto) 79.7 H Lymph % (Auto) 8.3 L Swift % (Auto) 8.1 Eos % (Auto) 1.6 Baso % (Auto) 0.7 Lymph # (Auto) 1.08 Swift # (Auto) 1.1 H Eos # (Auto) 0.2 Baso # (Auto) 0.1 Abs Immat Gran (auto) 0.21 H Absolute Neuts (auto) 10.4 H Absolute Nucleated RBC 0.000 Nucleated RBC % 0.0 Sodium 138 Potassium 4.3 Chloride 99 Carbon Dioxide 25 Anion Gap 14 H BUN 56 H D Creatinine 6.43 H Estim Creat Clear Calc 13 Estimated GFR 9 L Glucose 157 H POC Capillary Glucose Calcium 7.8 L Phosphorus 7.2 H Magnesium 2.4 H Albumin 3.0 L Triglycerides 131 Vancomycin Trough 19.1
[2024-12-08] MEDS: HEPARIN SODIUM 1,000 UNITS/ML VIAL 500 UNITS IV PUSH (09:21)
[2024-12-08] MEDS: EPOETIN ALFA-EPBX 10,000 UNITS/ML VIAL 10000 UNITS IV PUSH (10:38)
--- NOTE | 2024-12-08 11:10 | P.PNNP_ITS ---
Progress Note: A&P Assessment and Plan (1) End stage renal disease: Code(s): N18.6 - End stage renal disease Status: Chronic Assessment and Plan: * HD today * continue Fri/Fri/Friday dialysis schedule while hospitalized * follow electrolytes, volume status, and clearance * kidney disease due to biopsy proven diabetes and hypertension along with vascular disease (CVA + hyperlipidemia) (2) Gangrene of toe of left foot: Code(s): I96 - Gangrene, not elsewhere classified Status: Acute Assessment and Plan: * as noted by clinical exam on admission * Surgery following * s/p open transmetatarsal amputation left 2nd toe (11/29) * MRI of left foot results reviewed -- see #4 * likely to need further surgical intervention - noted plans for this ti * on IV antibiotics (3) Cellulitis of left foot: Code(s): L03.116 - Cellulitis of left lower limb Status: Acute Assessment and Plan: * as noted on presentation * likely a complication of diabetes and #2 * on antibiotics (4) Bacteremia: Code(s): R78.81 - Bacteremia Status: Acute Assessment and Plan: * as noted: * blood cultures (11/26): MRSA * blood cultures (11/28): MRSA * blood cultures (12/01): MRSA (1 out of 2 sets) * blood cultures (12/02): no growth * blood cultures (12/03): Staphylococcus aureus (1 out of 2 sets) * presumably related to #2 and #3 * results of KATLIN noted (12/01): * No evidence of infective endocarditis. The aortic valve is severely calcified with severe aortic stenosis with an ALBINO of 0.9cm2 by planimetry. * on antibiotics * MRI of left foot (12/05) noted: * status post transmetatarsal amputation of the second digit * 2.4 x 1.8 x 3.3 cm peripherally enhancing fluid collection at the second interspace at the level the proximal metatarsal shafts is compatible with abscess * diffuse myositis of the plantar musculature of the foot * no evidence for osteomyelitis or fracture * follow culture data (5) Altered mental status: Code(s): R41.82 - Altered mental status, unspecified Status: Acute Assessment and Plan: * slow improvement noted (if not back to baseline) * initially noted this on morning of 11/30 * testing/evaluation noted at that time: * ABG: pH 7.538, pCO2 35.8, pO2 53.2, HCO3 29.8 * lactic normal; procalcitonin elevated at 6.1; glucose okay * CT of brain: unchanged small old infarcts in the right frontal lobe, abdelrahman, right lentiform nucleus and left thalamus; no acute intracranial process; age-related changes including mild diffuse volume loss and moderate scattered white matter hypoattenuation consistent with chronic small vessel ischemic disease * CXR: opacities in the right mid and lower lung zones which could represent atelectasis, aspiration and/or pneumonia; small right pleural effusion * limiting narcotics as tolerated * continue supportive therapy (6) Aspiration pneumonia: Code(s): J69.0 - Pneumonitis due to inhalation of food and vomit Status: Acute Assessment and Plan: * as suggested by CXR on 11/30 * on antibiotics * viral testing (COVID/RSV/influenza) negative * NPO as failed modified barium swallow x 3 * speech therapy following * started on PPN for nutritional support * may need PEG-tube * follow respiratory status (7) Anemia: Code(s): D64.9 - Anemia, unspecified Status: Chronic Assessment and Plan: * due to ESRD with worsening due to acute illness/infection * follow trend of H/H * Epogen with HD (8) Heart failure with preserved ejection fraction: Qualifiers: Heart failure chronicity: unspecified Qualified Code(s): I50.30 - Unspecified diastolic (congestive) heart failure Code(s): I50.30 - Unspecified diastolic (congestive) heart failure Status: Chronic Assessment and Plan: * appears compensated * fluid removal with dialysis to maintain euvolemia * continue supportive therapy (9) Hypertension: Qualifiers: Hypertension type: unspecified Qualified Code(s): I10 - Essential (primary) hypertension Code(s): I10 - Essential (primary) hypertension Status: Chronic Assessment and Plan: * reasonable control during hospitalization * a bit elevated by recent check * known history of poor control at baseline * follow trend of hemodynamics (10) Diabetes: Qualifiers: Diabetes mellitus type: type 2 Diabetes mellitus adjunct faculty for medical terminology insulin use: without adjunct faculty for medical terminology use Diabetes mellitus complication status: with kidney complications Diabetes mellitus complication detail: with chronic kidney disease Chronic kidney disease stage: on chronic dialysis Qualified Code(s): E 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 L Subjective Date/time seen: 12/08/24 11:10 Interval history: Follow-up for end stage renal disease on hemodialysis. Tolerating dialysis treatment at the time of my visit (seen on HD at 11:00AM); noted plans for further operative intervention on left foot wounds given recent MRI of foot findings; no apparent distress voiced when seen. Exam 2 Narrative: General: WD/WN male in NAD Heart: normal S1 and S2; no rub Lungs: clear anteriorly Abdomen: soft, nontender, nondistended, positive bowel sounds Extremities: no cyanosis or clubbing; + edema left foot Skin: left foot dressings in place Objective Data Vital Signs Vital Signs: Vital Signs Temp Pulse Resp BP Pulse Ox O2 Del Method 12/08/24 11:00 63 131/72 12/08/24 10:45 61 142/74 H 12/08/24 10:30 63 147/80 H 12/08/24 10:15 63 134/73 12/08/24 10:00 62 160/84 H 12/08/24 09:45 62 142/80 H 12/08/24 09:30 63 160/84 H 12/08/24 09:15 62 166/83 H 12/08/24 09:00 63 163/82 H 12/08/24 08:45 63 147/82 H 12/08/24 08:33 63 162/80 H 12/08/24 08:20 97.7 F 65 16 164/87 H 12/08/24 08:00 66 12/08/24 04:16 97.7 F 68 18 165/78 H 94 12/08/24 04:00 60 12/08/24 00:00 70 12/07/24 21:46 98.2 F 67 18 165/78 H 95 12/07/24 20:00 67 12/07/24 20:00 Room Air 12/07/24 16:00 71 12/07/24 14:00 97.9 F 71 20 171/69 H 97 Intake/Output Intake/Output: Intake & Output 12/05/24 12/06/24 12/07/24 12/08/24 23:59 23:59 23:59 23:59 Intake Total 2600 250 2550 0 Output Total 100 3100 50 2100 Balance 2500 -2850 2500 -2100 Meds/Results Medications: Active Medications Generic Name Dose Route Start Last Admin Trade Name Freq PRN Reason Stop Dose Admin Amlodipine Besylate 10 mg 11/27/24 09:00 11/30/24 08:30 Amlodipine Besylate 10 Mg Tablet PO 10 mg DAILY LILIAN Administration Atorvastatin Calcium 80 mg 11/27/24 09:00 12/01/24 11:36 Atorvastatin 40 Mg Tablet PO Not Given DAILY LILIAN Carvedilol 25 mg 11/26/24 21:00 11/30/24 08:29 Carvedilol 25 Mg Tablet PO 25 mg Q12HR LILIAN Administration Clopidogrel Bisulfate 75 mg 11/27/24 09:00 12/06/24 09:32 Clopidogrel Bisulfate 75 Mg Tablet PO Not Given DAILY [facility] Collagenase 1 applic 12/03/24 21:00 12/08/24 11:25 Collagenase Oint 30 Gm Tube TOPICAL Not Given Q12HR [facility] Dextrose 12.5 gm 11/30/24 16:34 Dextrose 50% 25 Gm/50 Ml Syringe IV PUSH PRN PRN Hypoglycemia Protocol Docusate Sodium 100 mg 11/26/24 17:00 11/30/24 17:21 Docusate Sodium 100 Mg Capsule PO Not Given BID [facility] Epoetin Romain-epbx 10,000 units 12/08/24 18:00 12/08/24 10:38 Epoetin Romain-Epbx 10,000 Units/Ml Vial IV PUSH 12/08/24 18:01 10,000 units ONCE ONE Administration Fentanyl Citrate 25 mcg 12/08/24 13:28 Fentanyl Citrate Inj (*Crx) 100 Mcg/2 Ml Vial IV PUSH Q2M PRN Pain Glucagon 1 mg 11/30/24 16:34 Glucagon For Inj 1 Mg Vial IM PRN PRN Hypoglycemia Protocol Glucose 15 gm 11/30/24 16:34 Glucose Oral Gel 15 Gm Of Glucse In 37.5 Gm Tube PO PRN PRN Hypoglycemia Protocol Hydralazine HCl 50 mg 11/26/24 17:00 11/30/24 12:49 Hydralazine Hcl 50 Mg Tablet PO Not Given TID LILIAN Hydralazine HCl 10 mg 12/04/24 09:10 12/08/24 11:24 Hydralazine Hcl 20 Mg/Ml Vial IV PUSH Not Given TID LILIAN Albumin Human 50 mls @ 999 mls/hr 11/27/24 06:51 Albutein IVPB 12/27/24 06:50 Q10M PRN HYPOTENSION Ibuprofen 800 mg in 200 mls @ 400 mls/hr 11/29/24 17:35 11/30/24 21:19 Caldolor 800 Mg/200 Ml IVPB Infused Q6H PRN Infusion Breakthrough Pain Rated 1-3 or NPO Cefepime HCl 1 gm in 50 mls @ 100 mls/hr 11/30/24 18:00 12/07/24 17:48 Maxipime 1 Gm/Ns 50 Ml IVPB 100 mls/hr DAILY@1800 LILIAN Administration Metronidazole 500 mg in 100 mls @ 100 mls/hr 11/30/24 14:00 12/08/24 05:21 Flagyl 500 Mg/Iso Soln 100 Ml IVPB 100 mls/hr Q8H LILIAN Administration Dextrose 1,000 mls @ 100 mls/hr 11/30/24 16:34 Dextrose 5% 1,000 Ml IVPB PRN PRN Hypoglycemia Protocol Dextrose 1,000 mls @ 50 mls/hr 12/03/24 12:25 Dextrose 10% IV CONT .Q20H PRN if PN is interrupted Amino Acids/Electrolytes/Dextrose 1,000 mls @ 80 mls/hr 12/03/24 15:00 12/08/24 00:32 Clinimix E 4.25%/5% Solution IV CONT 80 mls/hr .[id number] LILIAN Administration Protocol Fat Emulsion Intravenous 250 mls @ 20.833 mls/hr 12/05/24 09:00 12/07/24 10:08 Lipids 20% IVPB 20.83 mls/hr Q24H LILIAN Administration Vancomycin HCl 750 mg in 250 mls @ 250 mls/hr 12/08/24 20:00 Vancomycin 750 Mg/Ns 250 Ml IVPB 12/08/24 20:59 ONCE ONE Lactated Ringer's 1,000 mls @ 30 mls/hr 12/08/24 13:30 Lr - Lactated Ringers Iv IV CONT .Q24H [facility] Insulin Aspart 2 - 5 units 12/01/24 00:00 12/08/24 07:49 Insulin Aspart (*Bkc) 100 Units/Ml SUB-Q Not Given Q6HR [facility] Protocol Naloxone HCl 0.1 mg 11/29/24 17:35 Naloxone Hcl 0.4 Mg/Ml Vial IV PUSH Q2M PRN Opiate Reversal Ondansetron HCl 4 mg 11/26/24 14:10 12/06/24 08:44 Ondansetron Inj 4 Mg/2 Ml Vial IV PUSH 4 mg Q4H PRN Administration Nausea Ondansetron HCl 4 mg 12/08/24 13:28 Ondansetron Inj 4 Mg/2 Ml Vial IV PUSH ONCE PRN Nausea Oxycodone/Acetaminophen 0.5 tablet 11/29/24 17:35 Oxycodone/Acetaminophen (*Crx) 5-325 Mg Tablet PO Q4H PRN Pain Rated 4-6 Pantoprazole Sodium 40 mg 12/02/24 12:00 12/08/24 11:24 Pantoprazole 40 Mg Tablet PO Not Given QAM [facility] Polyethylene Glycol 17 gm 11/30/24 09:00 11/30/24 08:29 Polyethylene Glycol 3350 17 Gm Powd.Pack PO 17 gm QAM [facility] Administration Senna/Docusate Sodium 2 tab 11/29/24 21:00 11/29/24 20:29 Senna/Docusate Sodium Tablet PO 2 tab HS LILIAN Administration Vancomycin HCl 1 each 11/26/24 13:16 Vancomycin For Hemodialysis IVPB PRN PRN Vancomycin Protocol Radiology Results: ITS Impressions Foot X-Ray 11/26/24 12:58 Impression: 1: Moderate soft tissue swelling of the second digit. The distal phalanx not well visualized. Cannot exclude osteomyelitis. 2: Extra-articular fracture left fifth proximal phalanx. Duplex Scan Lower Extremity Artery 11/26/24 13:53 IMPRESSION: 1. No evident hemodynamically significant stenosis either by follow-up elevation of peak systolic velocities or by direct visualization grayscale imaging with brisk systolic upstrokes arteries of the bilateral lower limbs. Head CT 11/30/24 12:22 IMPRESSION: 1. . 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 No acute intracranial process. 2. Age-related changes including mild diffuse volume loss and moderate scattered white matter hypoattenuation consistent with chronic small vessel ischemic disease. Chest X-Ray 11/30/24 12:37 IMPRESSION: 1. Opacities in the right mid and lower lung zones which could represent atelectasis, aspiration and/or pneumonia. 2. Small right pleural effusion. Foot MRI 12/05/24 13:43 IMPRESSION: Status post transmetatarsal amputation of the second digit. 2.4 x 1.8 x 3.3 cm peripherally enhancing fluid collection at the second interspace at the level the proximal metatarsal shafts is compatible with abscess. Diffuse myositis of the plantar musculature of the foot. No evidence for osteomyelitis or fracture. Susceptibility artifact at the operative bed and dorsal soft tissues at the second digit region could reflect artifact and/or open soft tissue wound. Correlate with physical exam. Modified Barium Swallow 12/07/24 09:32 IMPRESSION: Pharyngeal dysphagia with laryngeal penetration and aspiration. Please correlate with speech pathologist findings and specific feeding recommendations. Labs Labs: Laboratory Tests 12/08/24 05:17 12/08/24 05:18 Calcium 7.8 L Phosphorus 7.2 H Magnesium 2.4 H Albumin 3.0 L Triglycerides 131 Vancomycin Trough Microbiology 12/03/24 05:35 Blood Blood Culture - Final 12/02/24 05:24 Blood Blood Culture - Final 12/02/24 05:24 Blood Blood Culture - Final
--- NOTE | 2024-12-08 11:46 | WPDHPUPDATE1 ---
History and Physical Update Update Date/Time: 12/08/24 11:46 History and Physical has been reviewed, including an updated exam of the patient. There are NO changes in the patient's condition. Risks, benefits, and alternatives have been discussed and questions answered. Patient agrees to proceed with procedure.
[2024-12-08] MEDS: SODIUM CHLORIDE 0.9% IV 500 ML 30 ML IV CONT (14:41)
[2024-12-08] MEDS: ONDANSETRON INJ 4 MG/2 ML VIAL IV PUSH (14:41)
[2024-12-08 15:27] LABS: Glucose Point of Care 95 mg/dl (65-105)
--- NOTE | 2024-12-08 15:48 | WPDANESEPPF ---
Anes - Initial Pre Proc Eval Procedure: Operation Date: 12/08/24 15:00 Proposed Procedures p Debridement Left Foot Wound - Kaveh Goodson MD Date/Time: 12/08/24 15:48 Surgeon: Hamzah Pre Op Diagnosis: Toe Gangrene/Diabetic Foot Wound Patient Data Age: 59 Gender: M Height: 1.8 m Weight: 93 kg Last Vital Signs Temp 37.1 C 12/08/24 15:03 Pulse 86 12/08/24 15:03 Resp 16 12/08/24 15:03 BP 150/82 H 12/08/24 15:03 Pulse Ox 98 12/08/24 15:03 O2 Del Method Room Air 12/08/24 15:03 O2 Flow Rate 2 12/01/24 13:35 Allergies Allergy/AdvReac Type Severity Reaction Status Date / Time tree nut Allergy Intermediate Itching Verified 11/29/24 15:34 Penicillins Allergy Unknown Unknown Verified 11/29/24 15:34 Home Medications ?Medication ?Instructions ?Recorded ?Confirmed ?Type amlodipine 10 mg tablet 10 mg PO DAILY 01/25/22 11/26/24 History atorvastatin 80 mg tablet 80 mg PO DAILY 01/25/22 11/26/24 History carvedilol 25 mg tablet 25 mg PO BID 01/25/22 11/26/24 History clopidogrel 75 mg tablet 75 mg PO DAILY 01/25/22 11/26/24 History hydralazine 50 mg tablet 50 mg PO TID 08/11/23 11/26/24 History Laboratory Tests 12/07/24 12/08/24 12/08/24 17:26 00:28 05:17 WBC 13.0 H K/mm3 (4.5-10.0) RBC 3.24 L M/mm3 (4.6-6.20) Hgb 9.2 L g/dL (14.0-18.0) Hct 30.2 L % (42.0-52.0) MCV 93.2 fl (80-100) MCH 28.4 pg (26-34) MCHC 30.5 L g/dl (32-36) RDW 14.8 H % (11.5-14.5) Plt Count 285 k/mm3 (150-375) MPV 10.8 H fl (7.4-10.4) Immature Gran % (Auto) 1.6 H % (0-0.5) Neut % (Auto) 79.7 H % (45.5-73.1) Lymph % (Auto) 8.3 L % (18.3-44.2) Hamblen % (Auto) 8.1 % (2.6-8.5) Eos % (Auto) 1.6 % (0-4.4) Baso % (Auto) 0.7 % (0.2-1.2) Lymph # (Auto) 1.08 K/mm3 (0.9-3.2) Hamblen # (Auto) 1.1 H K/mm3 (0.1-0.6) Eos # (Auto) 0.2 K/mm3 (0-0.3) Baso # (Auto) 0.1 K/mm3 (0.0-0.1) Abs Immat Gran (auto) 0.21 H K/mm3 (0.00-0.031) Absolute Neuts (auto) 10.4 H K/mm3 (1.3-6.7) Absolute Nucleated RBC 0.000 K/mm3 (0.0-0.012) Nucleated RBC % 0.0 % (0.0-0.2) Sodium Potassium Chloride Carbon Dioxide Anion Gap BUN Creatinine Estim Creat Clear Calc Estimated GFR Glucose POC Capillary Glucose 144 H mg/dl 145 H mg/dl (65-105) (65-105) Calcium Phosphorus Magnesium Albumin Triglycerides Vancomycin Trough 19.1 ug/mL (10.0-20.0) 12/08/24 12/08/24 05:18 15:23 WBC RBC Hgb Hct MCV MCH MCHC RDW Plt Count MPV Immature Gran % (Auto) Neut % (Auto) Lymph % (Auto) Hamblen % (Auto) Eos % (Auto) Baso % (Auto) Lymph # (Auto) Hamblen # (Auto) Eos # (Auto) Baso # (Auto) Abs Immat Gran (auto) Absolute Neuts (auto) Absolute Nucleated RBC Nucleated RBC % Sodium 138 mmol/L (137-145) Potassium 4.3 mmol/L (3.4-5.0) Chloride 99 mmol/L (98-107) Carbon Dioxide 25 mmol/L (22-30) Anion Gap 14 H mmol/L (4-12) BUN 56 H D mg/dL (9-20) Creatinine 6.43 H mg/dL (0.7-1.3) Estim Creat Clear Calc 13 ml/min Estimated GFR 9 L (59 - ) Glucose 157 H mg/dL (65-110) POC Capillary Glucose 95 mg/dl (65-105) Calcium 7.8 L mg/dL (8.4-10.2) Phosphorus 7.2 H mg/dL (2.5-4.5) Magnesium 2.4 H mg/dL (1.6-2.3) Albumin 3.0 L g/dL (3.5-5.1) Triglycerides 131 mg/dL (<150) Vancomycin Trough Patient hx anesthesia problems: none Family hx anesthesia problems: none Results Review: All pre-operative results and documents have been reviewed as part of the pre-operative evaluation. [facility] Past Medical History Medical History Aortic stenosis mod to severe Tobacco abuse Elevated d-dimer Heart failure with preserved ejection fraction Echo in November 2022 showed normal LV size and function with an EF of 50 to 55%, mildly increased left ventricular wall thickness, and grade 2 diastolic dysfunction. 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 Cerebrovascular accident (02/2019) Anxiety Hyperlipidemia Hypertension Surgical History Surgical History History of cardiac catheterization (2019) History of colonoscopy with polypectomy Family History Family History Mother Carcinoma of colon Father Family history of diabetes mellitus in first degree relative Grandparent Diabetes mellitus Social History Social History Social History: Surrogate medical decision maker: Raina Yun, sibling. Code status: Do not resuscitate. Smoking packs per day: 0.5 Smoking cigarettes per day: 10.0 Years smoked: 40 Smoking pack-years: 20.00 Smoking status: Current every day smoker Alcohol intake: never Substance use: never Substance use type: does not use Do You Feel Safe in your Home?: Yes Lack of Transportation: YES Lack of Food: Never True Current Housing: I Have Housing Concerned About Future Housing: No Difficulty Paying Gas/Electric Bills: No Difficulty Paying for Meds: No Currently Unemployed: No Education: High School Diploma/GED Difficulty w/ Childcare or Family Care: No Living arrangements: with family Additional living arrangements comments: Lives in [place]. Has 4 children. [employer]. Additional occupation/education comments: [employer]. Spiritual care concerns: No Anes - Eval Final PreProcedure Day of Procedure 12/08/24 15:48 Patient weight: overweight Heart: regular rate and rhythm Lungs: clear to auscultation Airway: Mallampati scale class II Neurological: alert and oriented Last oral intake: >/= 8 hours ASA classification: IV Emergent: no Anesthetic plan: proceed Anesthesia type and monitoring: general LMA and standard monitoring Results Review: All pre-operative results and documents have been reviewed as part of the pre-operative evaluation. Informed Consent: The patient's anesthetic plan and its attendant risks and benefits were discussed with the patient/family/POA. Questions were solicited and answers provided to the satisfaction of the patient/family/POA.
--- NOTE | 2024-12-08 16:48 | SUR.OPER ---
culture given to Master in the lab
--- NOTE | 2024-12-08 17:26 | W.PM.PROC2 ---
Procedure Note - Detailed Date of Procedure 12/08/24 Pre-op Diagnosis Necrotic wound with infection left foot, diabetes with peripheral vascular disease Post-op Diagnosis Same Procedure Performed excisional debridement skin subcutaneous muscle left foot 2 x 2 x 1 cm or 4 cm3 Surgeon Kaveh Goodson MD Supervisor Fur Floor Worker Katey Martin Anesthesia General ( LMA) Indications patient presented with infection and a gangrenous left 2nd toe with infection and necrotizing soft tissue infection of his distal foot. He underwent open amputation of the left 2nd toe and a transmetatarsal open amputation to remove the necrotizing soft tissue infection as well as the gangrenous tissue. He has continued to have evidence of ongoing infection and grew MRSA from the wound and in his blood stream. MRI showed evidence of an abscess and ongoing infection on the sides of the previous open amputation. Patient is taken back to surgery for continued debridement and possibly drainage of an abscess on the forefoot. The wound has not been healing well and suspicion of significant diabetic peripheral vascular disease is also a concern. Findings Poor healing from diabetic peripheral vascular disease was the main finding. There were some areas on each side of the wound that had infection and did gross this. These were to be treated. Although the amputation was probed and and the skin on the dorsum of the foot opened from the amputation wound proximally, no sign an abscess could be found. There was much more necrotic tissue and infected tissue in this wound. I did use. Poor and got no dorsalis pedis signal at all. The posterior tibial signal was a dampened biphasic signal. Description of Procedure Patient was taken to surgery and anesthesia was introduced. The left foot was prepped and draped. I 1st examined the foot thoroughly. I placed some pressure over the area which on MRI suggested an abscess. I could not see any purulent fluid or feel any fluctuant areas. I did go ahead and excise the necrotic skin subcutaneous and some tendon and muscle from each side of the open amputation wound. This did track particularly over the 3rd toe over to the 4th toe. I made another incision from the open wound proximally in the space between the 2nd and 3rd toe. I probed this and probed areas in the transmetatarsal amputation wound looking for purulent fluid or any sign of a deep space abscess. I could not find any. As I mentioned some of the subcutaneous necrosis tract over towards the 4th toe and I made yet another incision from distal to proximal between the 4th and 3rd metatarsals proximally. The underlying subcutaneous and some muscular tissue was necrotic and even purulent. The skin appeared to be viable. Looking more at the open amputation wound particularly closer to the metatarsophalangeal joints of the 1st and 3rd toes. The subcutaneous above the plantar space was necrotic. I debrided this and really it appeared to be tissue all the way to the skin. Having debrided all the infected tissue and not having found an abscess, I did not see any point in debriding more of the non-infected but necrotic tissue in the open amputation wound. we dressed the wound with 1 in iodoform Nu Gauze packing followed by fluffs. Before fully placing a dressing, I used pulsed Doppler and found no dorsalis pedis signal whatsoever. The only posterior tibial signal was a dampened biphasic signal. We went ahead and dressed the wound with ABDs fluffs and Kerlix roll. The patient was awake and and taken to pre every in good condition. Sponge and needle counts were correct x2. Estimated Blood Loss -5 Urine Output 50 Drains No Packing Yes Pathology Other ( Cultures for aerobes anaerobes and Gram stain) Complications None Condition Stable Disposition PACU [facility] Billing Surgery - Charge Forward: Surgery Billing ( excisional debridement skin subcutaneous muscle left foot 2 x 2 x 1 cm or 4 cm3)
[2024-12-08 18:15] LABS: Glucose Point of Care 98 mg/dl (65-105)
[2024-12-08] MEDS: CEFEPIME 1 GM/NS 50 ML 1 GM/50 ML BAG IVPB (18:39)
[2024-12-08] MEDS: FAT EMULSIONS IV 20% 250 ML 20.83 ML IVPB (18:44)
[2024-12-08] MEDS: IBUPROFEN IV 800 MG/200 ML 800 MG/200 ML BAG 400 MG IVPB (20:37)
[2024-12-08] MEDS: VANCOMYCIN 750 MG/NS 250 ML 750 MG/250 ML BAG 250 MG IVPB (20:45)
[2024-12-09] VITALS (7 sets, daily range): BP systolic 148–156; BP diastolic 72; PULSE 63–70; RESP 12–18; TEMP 36.6–36.8; O2SAT 96–98
[2024-12-09 00:18] LABS: Glucose Point of Care 105 mg/dl (65-105)
[2024-12-09] MEDS: metroNIDAZOLE 500 MG/ISO 100ML 500 MG/100 ML BAG 100 MG IVPB ×3 (05:52→21:04)
[2024-12-09 06:21] LABS: Basophils Absolute Auto 0.1 K/mm3 (0.0-0.1); Basophils Percent Auto 0.9 % (0.2-1.2); Eosinophils Absolute Auto 0.2 K/mm3 (0-0.3); Eosinophils Percent Auto 2.1 % (0-4.4); Hematocrit 28.7 % (42.0-52.0); Hemoglobin 8.8 g/dL (14.0-18.0); Immature Granulocyte Absolute 0.19 K/mm3 (0.00-0.031); Immature Granulocyte Percent A 1.7 % (0-0.5); Lymphocytes Percent Auto 12.3 % (18.3-44.2); Mean Corpuscular HGB Conc 30.7 g/dl (32-36); Mean Corpuscular Hemoglobin 28.9 pg (26-34); Mean Corpuscular Volume 94.4 fl (80-100); Mean Platelet Volume 10.4 fl (7.4-10.4); Monocytes Absolute Auto 0.9 K/mm3 (0.1-0.6); Monocytes Percent Auto 8.2 % (2.6-8.5); Neutrophils Absolute Auto 8.5 K/mm3 (1.3-6.7); Neutrophils Percent Auto 74.8 % (45.5-73.1); Platelet Count Result 243 k/mm3 (150-375); Red Blood Count 3.04 M/mm3 (4.6-6.20); White Blood Count 11.3 K/mm3 (4.5-10.0)
[2024-12-09 06:39] LABS: Albumin Level 2.9 g/dL (3.5-5.1); Anion Gap 10 mmol/L (4-12); Blood Urea Nitrogen 41 mg/dL (9-20); Calcium 7.7 mg/dL (8.4-10.2); Carbon Dioxide 25 mmol/L (22-30); Chloride 102 mmol/L (98-107); Estimated CRCL calculation 16 ml/min; Estimated Glomerular Filt Rate 12; Glucose 112 mg/dL (65-110); Magnesium 2.2 mg/dL (1.6-2.3); Phosphorus 6.7 mg/dL (2.5-4.5); Potassium 4.4 mmol/L (3.4-5.0); Sodium 137 mmol/L (137-145)
--- NOTE | 2024-12-09 07:21 | WPDGIPROGNO ---
Progress Note: A&P Assessment and Plan (1) Dysphagia: Code(s): R13.10 - Dysphagia, unspecified Status: Acute Assessment and Plan: The patient is suitable for PEG placement. Since his GI tract is intact, and he's currently on parenteral nutrition, we're encouraging a nutritional consultation. This will help initiate enteral nutrition via an NG tube as a bridge in stead of continuing parenteral nutrition. We're ready to proceed with the PEG placement sometime this week once the family confirms their decision. Plan - Please consider NG tube placement and enteral nutrition, and discontinuing parenteral nutrition Subjective Date/time seen: 12/09/24 07:21 Objective Data Vital Signs Vital Signs: Vital Signs - 24 hr 12/08/24 08:00 12/08/24 08:20 12/08/24 08:33 Temperature 97.7 F Pulse Rate 66 65 63 Respiratory Rate 16 Blood Pressure 164/87 H 162/80 H Pulse Oximetry Oxygen Delivery Oxygen Flow Rate 12/08/24 08:45 12/08/24 09:00 12/08/24 09:15 Temperature Pulse Rate 63 63 62 Respiratory Rate Blood Pressure 147/82 H 163/82 H 166/83 H Pulse Oximetry Oxygen Delivery Oxygen Flow Rate 12/08/24 09:30 12/08/24 09:45 12/08/24 10:00 Temperature Pulse Rate 63 62 62 Respiratory Rate Blood Pressure 160/84 H 142/80 H 160/84 H Pulse Oximetry Oxygen Delivery Oxygen Flow Rate 12/08/24 10:15 12/08/24 10:30 12/08/24 10:45 Temperature Pulse Rate 63 63 61 Respiratory Rate Blood Pressure 134/73 147/80 H 142/74 H Pulse Oximetry Oxygen Delivery Oxygen Flow Rate 12/08/24 11:00 12/08/24 11:13 12/08/24 11:27 Temperature 98.0 F Pulse Rate 63 59 L 62 Respiratory Rate 16 Blood Pressure 131/72 138/65 131/61 Pulse Oximetry Oxygen Delivery Oxygen Flow Rate 12/08/24 12:00 12/08/24 15:03 12/08/24 17:05 Temperature 98.7 F 97.1 F L Pulse Rate 64 86 61 Respiratory Rate 16 18 Blood Pressure 150/82 H 83/49 L Pulse Oximetry 98 100 Oxygen Delivery Room Air Simple Face Mask Oxygen Flow Rate 10 12/08/24 17:15 12/08/24 17:30 12/08/24 17:45 Temperature Pulse Rate 63 66 66 Respiratory Rate 17 19 17 Blood Pressure 117/46 L 132/47 L 139/42 L Pulse Oximetry 100 99 98 Oxygen Delivery Room Air Room Air Room Air Oxygen Flow Rate 12/08/24 17:58 12/08/24 20:00 12/08/24 20:00 Temperature Pulse Rate 67 69 Respiratory Rate 17 Blood Pressure 139/44 L Pulse Oximetry 98 Oxygen Delivery Room Air Room Air Oxygen Flow Rate 12/08/24 21:50 12/09/24 00:00 12/09/24 03:08 Temperature 97.8 F Pulse Rate 66 69 66 Respiratory Rate 18 Blood Pressure 163/79 H Pulse Oximetry 97 Oxygen Delivery Oxygen Flow Rate 12/09/24 06:19 Temperature 98 F Pulse Rate 63 Respiratory Rate 16 Blood Pressure 148/72 H Pulse Oximetry 98 Oxygen Delivery Oxygen Flow Rate Intake/Output Intake/Output: Intake & Output 12/06/24 12/07/24 12/08/24 12/09/24 23:59 23:59 23:59 23:59 Intake Total 250 2850 1300 Output Total 3100 50 2150 Balance -2850 2800 -850 Meds/Results Medications: Active Medications Generic Name Dose Route Start Last Admin Trade Name Freq PRN Reason Stop Dose Admin Amlodipine Besylate 10 mg 11/27/24 09:00 11/30/24 08:30 Amlodipine Besylate 10 Mg Tablet PO 10 mg DAILY LILIAN Administration Atorvastatin Calcium 80 mg 11/27/24 09:00 12/01/24 11:36 Atorvastatin 40 Mg Tablet PO Not Given DAILY [facility] Carvedilol 25 mg 11/26/24 21:00 11/30/24 08:29 Carvedilol 25 Mg Tablet PO 25 mg Q12HR LILIAN Administration Clopidogrel Bisulfate 75 mg 11/27/24 09:00 12/06/24 09:32 Clopidogrel Bisulfate 75 Mg Tablet PO Not Given DAILY [facility] Collagenase 1 applic 12/03/24 21:00 12/08/24 20:39 Collagenase Oint 30 Gm Tube TOPICAL Not Given Q12HR [facility] Dextrose 12.5 gm 11/30/24 16:34 Dextrose 50% 25 Gm/50 Ml Syringe IV PUSH PRN PRN Hypoglycemia Protocol Docusate Sodium 100 mg 11/26/24 17:00 11/30/24 17:21 Docusate Sodium 100 Mg Capsule PO Not Given BID LILIAN Fentanyl Citrate 25 mcg 12/08/24 13:28 Fentanyl Citrate Inj (*Crx) 100 Mcg/2 Ml Vial IV PUSH Q2M PRN Pain Glucagon 1 mg 11/30/24 16:34 Glucagon For Inj 1 Mg Vial IM PRN PRN Hypoglycemia Protocol Glucose 15 gm 11/30/24 16:34 Glucose Oral Gel 15 Gm Of Glucse In 37.5 Gm Tube PO PRN PRN Hypoglycemia Protocol Hydralazine HCl 50 mg 11/26/24 17:00 11/30/24 12:49 Hydralazine Hcl 50 Mg Tablet PO Not Given TID LILIAN Hydralazine HCl 10 mg 12/04/24 09:10 12/08/24 18:38 Hydralazine Hcl 20 Mg/Ml Vial IV PUSH Not Given TID LILIAN Albumin Human 50 mls @ 999 mls/hr 11/27/24 06:51 Albutein IVPB 12/27/24 06:50 Q10M PRN HYPOTENSION Ibuprofen 800 mg in 200 mls @ 400 mls/hr 11/29/24 17:35 12/08/24 20:37 Caldolor 800 Mg/200 Ml IVPB 400 mls/hr Q6H PRN Administration Breakthrough Pain Rated 1-3 or NPO Cefepime HCl 1 gm in 50 mls @ 100 mls/hr 11/30/24 18:00 12/08/24 18:39 Maxipime 1 Gm/Ns 50 Ml IVPB 100 mls/hr DAILY@1800 LIL[facility] Administration Metronidazole 500 mg in 100 mls @ 100 mls/hr 11/30/24 14:00 12/09/24 05:52 Flagyl 500 Mg/Iso Soln 100 Ml IVPB 100 mls/hr Q8H [facility]IL[facility] Administration Dextrose 1,000 mls @ 100 mls/hr 11/30/24 16:34 Dextrose 5% 1,000 Ml IVPB PRN PRN Hypoglycemia Protocol Dextrose 1,000 mls @ 50 mls/hr 12/03/24 12:25 Dextrose 10% IV CONT .Q20H PRN if PN is interrupted Amino Acids/Electrolytes/Dextrose 1,000 mls @ 80 mls/hr 12/03/24 15:00 12/08/24 18:44 Clinimix E 4.25%/5% Solution IV CONT 80 mls/hr .[id number] LILIAN Administration Protocol Fat Emulsion Intravenous 250 mls @ 20.833 mls/hr 12/05/24 09:00 12/08/24 18:44 Lipids 20% IVPB 20.83 mls/hr Q24H LILIAN Administration Lactated Ringer's 1,000 mls @ 30 mls/hr 12/08/24 13:30 12/08/24 19:14 Lr - Lactated Ringers Iv IV CONT Not Given .Q24H [facility]ILIAN Sodium Chloride 500 mls @ 30 mls/hr 12/08/24 14:40 12/08/24 18:03 Normal Saline Iv IV CONT Infused .[id number] [facility] Infusion Insulin Aspart 2 - 5 units 12/01/24 00:00 12/09/24 03:00 Insulin Aspart (*Bkc) 100 Units/Ml SUB-Q Not Given Q6HR [facility] Protocol Naloxone HCl 0.1 mg 11/29/24 17:35 Naloxone Hcl 0.4 Mg/Ml Vial IV PUSH Q2M PRN Opiate Reversal Ondansetron HCl 4 mg 11/26/24 14:10 12/06/24 08:44 Ondansetron Inj 4 Mg/2 Ml Vial IV PUSH 4 mg Q4H PRN Administration Nausea Ondansetron HCl 4 mg 12/08/24 13:28 Ondansetron Inj 4 Mg/2 Ml Vial IV PUSH ONCE PRN Nausea Oxycodone/Acetaminophen 0.5 tablet 11/29/24 17:35 Oxycodone/Acetaminophen (*Crx) 5-325 Mg Tablet PO Q4H PRN Pain Rated 4-6 Pantoprazole Sodium 40 mg 12/02/24 12:00 12/08/24 11:24 Pantoprazole 40 Mg Tablet PO Not Given QAM LILIAN Polyethylene Glycol 17 gm 11/30/24 09:00 11/30/24 08:29 Polyethylene Glycol 3350 17 Gm Powd.Pack PO 17 gm QAM L[facility]IAN Administration Senna/Docusate Sodium 2 tab 11/29/24 21:00 11/29/24 20:29 Senna/Docusate Sodium Tablet PO 2 tab HS LILIAN Administration Vancomycin HCl 1 each 11/26/24 13:16 Vancomycin For Hemodialysis IVPB PRN PRN Vancomycin Protocol Radiology Results: ITS Impressions Foot X-Ray 11/26/24 12:58 Impression: 1: Moderate soft tissue swelling of the second digit. The distal phalanx not well visualized. Cannot exclude osteomyelitis. 2: Extra-articular fracture left fifth proximal phalanx. Duplex Scan Lower Extremity Artery 11/26/24 13:53 IMPRESSION: 1. No evident hemodynamically significant stenosis either by follow-up elevation of peak systolic velocities or by direct visualization grayscale imaging with brisk systolic upstrokes arteries of the bilateral lower limbs. Head CT 11/30/24 12:22 IMPRESSION: 1. . 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 No acute intracranial process. 2. Age-related changes including mild diffuse volume loss and moderate scattered white matter hypoattenuation consistent with chronic small vessel ischemic disease. Chest X-Ray 11/30/24 12:37 IMPRESSION: 1. Opacities in the right mid and lower lung zones which could represent atelectasis, aspiration and/or pneumonia. 2. Small right pleural effusion. Foot MRI 12/05/24 13:43 IMPRESSION: Status post transmetatarsal amputation of the second digit. 2.4 x 1.8 x 3.3 cm peripherally enhancing fluid collection at the second interspace at the level the proximal metatarsal shafts is compatible with abscess. Diffuse myositis of the plantar musculature of the foot. No evidence for osteomyelitis or fracture. Susceptibility artifact at the operative bed and dorsal soft tissues at the second digit region could reflect artifact and/or open soft tissue wound. Correlate with physical exam. Modified Barium Swallow 12/07/24 09:32 IMPRESSION: Pharyngeal dysphagia with laryngeal penetration and aspiration. Please correlate with speech pathologist findings and specific feeding recommendations. Labs Labs: Laboratory Results - last 24 hr 12/08/24 12/08/24 12/09/24 15:23 18:12 00:14 WBC RBC Hgb Hct MCV MCH MCHC RDW Plt Count MPV Immature Gran % (Auto) Neut % (Auto) Lymph % (Auto) [place] % (Auto) Eos % (Auto) Baso % (Auto) Lymph # (Auto) [place] # (Auto) Eos # (Auto) Baso # (Auto) Abs Immat Gran (auto) Absolute Neuts (auto) Absolute Nucleated RBC Nucleated RBC % Sodium Potassium Chloride Carbon Dioxide Anion Gap BUN Creatinine Estim Creat Clear Calc Estimated GFR Glucose POC Capillary Glucose 95 98 105 Calcium Phosphorus Magnesium Albumin 12/09/24 06:09 WBC 11.3 H RBC 3.04 L Hgb 8.8 L Hct 28.7 L MCV 94.4 MCH 28.9 MCHC 30.7 L RDW 15.0 H Plt Count 243 MPV 10.4 Immature Gran % (Auto) 1.7 H Neut % (Auto) 74.8 H Lymph % (Auto) 12.3 L [place] % (Auto) 8.2 Eos % (Auto) 2.1 Baso % (Auto) 0.9 Lymph # (Auto) 1.40 [place] # (Auto) 0.9 H Eos # (Auto) 0.2 Baso # (Auto) 0.1 Abs Immat Gran (auto) 0.19 H Absolute Neuts (auto) 8.5 H Absolute Nucleated RBC 0.000 Nucleated RBC % 0.0 Sodium 137 Potassium 4.4 Chloride 102 Carbon Dioxide 25 Anion Gap 10 BUN 41 H D Creatinine 4.94 H Estim Creat Clear Calc 16 Estimated GFR 12 L Glucose 112 H POC Capillary Glucose Calcium 7.7 L Phosphorus 6.7 H Magnesium 2.2 Albumin 2.9 L
[2024-12-09] MEDS: hydrALAZINE HCL 20 MG/ML VIAL 10 MG IV PUSH ×3 (08:29→21:05)
--- NOTE | 2024-12-09 10:23 | P.PNIM_ITS ---
Progress Note: A&P Assessment and Plan (1) Bacteremia: Code(s): R78.81 - Bacteremia Status: Acute Assessment and Plan: Patient admitted 11/26 for left diabetic foot wound. BCx 11/26: MRSA in 3/4 bottles Wound Cx 11/26 and 11/29 also grew MRSA TTE 11/27 showing EF 60-65%, diastolic dysfunction, aortic stenosis (severity unclear), mild-mod MR BCx 11/28: MRSA in 2/4 bottles BCx 12/01: MRSA on 1/4 bottles KATLIN 12/01 showing no evidence of endocarditis but does show severe aortic stenosis ALBINO 0.9. BCx 12/02 Negative BCx 12/03 Staph aureus form one aerobic bottle only. No sensitivities. Wound Cx 12/08 pending. Follow up cultures from 12/03 positive. Needed source control and patient went back to surgery 12/08. Surgery spoke with patient and family regarding the need for amputation with List Oliver of the left foot to preserve the heel verses a left below-knee amputation Patient remains on vancomycin Will repeat blood cultures post-surgery 12/08 with follow-up cultures placed for 12/10 (2) Diabetic infection of left foot: Code(s): E11.628 - Type 2 diabetes mellitus with other skin complications; L08.9 - Local infection of the skin and subcutaneous tissue, unspecified Status: Acute Assessment and Plan: Erythema and edema to the dorsal aspect of the left foot extending to the ankle. Unable to palpate DP pulses. Black foul smelling 2nd toe of the left foot. Foot XR left showed moderate soft tissue swelling of the second digit with poor visualization fo the distal phalanx. Osteomyelitis cannot be rule out. Also extra articular fracture to the left fifth proximal phalanx, Duplex showed no evident hemodynamically significant stenosis either by follow- up elevation of peak systolic velocities or by direct visualization grayscale imaging with brisk systolic upstrokes arteries of the bilateral lower limbs. General surgery consulted and appreciate their input. Patient with a gangrenous left 2nd toe with diabetic foot infection s/p open transmetatarsal amputation left 2nd toe on 11/29 Foot MRI Results showing a 2.4 x 1.8 x 3.3 cm peripherally enhancing fluid collection at the second interspace at the level the proximal metatarsal shafts is compatible with abscess. Diffuse myositis of the plantar musculature of the foot. No evidence for osteomyelitis or fracture. Patient went back to the OR for an excisional debridement skin subcutaneous muscle left foot 2 x 2 x 1 cm or 4 cm3 Continue IV abx. Dressing changes per surgery (3) Necrotizing soft tissue infection: Code(s): M79.89 - Other specified soft tissue disorders Status: Acute Assessment and Plan: Abscess noted on MRI detailed above (4) Gangrenous toe: Code(s): I96 - Gangrene, not elsewhere classified Status: Acute Assessment and Plan: s/p amputation. As above (5) Aspiration pneumonia: Code(s): J69.0 - Pneumonitis due to inhalation of food and vomit Status: Acute Assessment and Plan: Per patient son, the patient has been coughing with meals for a few months. CXR: Opacities in the right mid and lower lung zones which could represent atelectasis, aspiration and/or pneumonia. Small right pleural effusion. Patient continues to fail modified barium swallow at this time so PPN started Etiology of the dysphagia probably related to hx of multiple strokes. GI consulted for peg tube placement unsure if they will wait until we have source control NPO Place NGT (patient is agreeable) and have dietary consult for tube feedings. started PPN Speech therapy following. (6) Aortic stenosis: Code(s): I35.0 - Nonrheumatic aortic (valve) stenosis Status: Acute Assessment and Plan: KATLIN negative for infective endocarditis but does shows severe aortic stenosis with ALBINO of 0.9cm2. Will arrange outpatient follow up for his valvular disease. Avoid hypotension (7) Type 2 diabetes mellitus: Code(s): E11.9 - Type 2 diabetes mellitus without complications Status: Acute Assessment and Plan: A1c 5.9%. The patient's blood glucose was reviewed on 12/09 Glucose remains well controlled. Continue AccuCheks covering with sliding scale. Hypoglycemia protocol available as needed. Continue to monitor (8) Anemia: Code(s): D64.9 - Anemia, unspecified Status: Chronic Assessment and Plan: Chronic, likely secondary to ESRD Given epoetin 10,000 units x1 on 11/27 No signs of active bleeding Monitor H&H Tranfuse of hgb <7.0 (9) Carotid artery disease: Qualifiers: Carotid artery disease type: stenosis Laterality: unspecified laterality Qualified Code(s): I65.29 - Occlusion and stenosis of unspecified carotid artery Code(s): I77.9 - Disorder of arteries and arterioles, unspecified Status: Chronic Assessment and Plan: Continue Plavix post surgery once NGT is in place. (10) Hypertension: Qualifiers: Hypertension type: unspecified Qualified Code(s): I10 - Essential (primary) hypertension Code(s): I10 - Essential (primary) hypertension Status: Chronic Assessment and Plan: Patient's blood pressure was reviewed on 12/09 Blood pressure remains reasonably well controlled. Amlodipine 10 mg daily, coreg 25 mg BID, hydralazine 50 mg TID placed on hold due to patient NPO Hydralazine 10 mg IV scheduled TID added. Place NGT for GI access and resume some of his home medications. Change hydralazine to Q8h. (11) End stage renal disease on dialysis: Code(s): N18.6 - End stage renal disease; Z99.2 - Dependence on renal dialysis Status: Acute Assessment and Plan: Patient with ESRD on dialysis [facility] Nephrology consulted and appreciate their input Pharmacy to dose antibiotic (12) Heart failure with preserved ejection fraction: Qualifiers: Heart failure chronicity: unspecified Qualified Code(s): I50.30 - Unspecified diastolic (congestive) heart failure Code(s): I50.30 - Unspecified diastolic (congestive) heart failure Status: Chronic Assessment and Plan: Chronic, does not appear in acute exacerbation clinically Echo as above Monitor clinically. HD to control fluid status. Plan to follow up with primary protection manager outpatient. Okay to stop tele (13) Encephalopathy: Code(s): G93.40 - Encephalopathy, unspecified Status: Acute Assessment and Plan: On 11/30/2024: Severely lethargic with a right side lean and associated right gaze. His voice was increasingly garbled and his responses were slow. Remained AOx3 with otherwise benign neuro exam. Likely metabolic vs drug induced (received morphine overnight) encephalopathy. - ABG: pH 7.538, pCO2 35.8, pO2 53.2, HCO3 29.8. Started on 2L NC for hypoxemia. - Lactic WNL. Procal elevated at 6.1. Glucose WNL. - Head CT 11/30: Unchanged small old infarcts in the right frontal lobe, abdelrahman, right lentiform nucleus and left thalamus. No acute intracranial process. Age- related changes including mild diffuse volume loss and moderate scattered white matter hypoattenuation consistent with chronic small vessel ischemic disease. Morphine was discontinued Monitor mental status. Check MRI brain to see if he has new CVA to explain worsening dysphagia Plan Code status: Full code per patient DVT prophylaxis: SCD Subjective Date/time seen: 12/09/24 10:23 Interval history: 59yo male with ESRD, aortic stenosis, CAD, HTN and CVA here for diabetic wound. Assuming care. Chart reviewed. Patient slept poorly. Tolerated HD well yesterdy. No CP or SOB. Mild nausea at times. Exam Narrative: AF 98.0 148/72 66 16 98% ra Gen - NARD lying flat in bed Chest - few basilar rhonchi o/w clear. nml RR CV - RRR S1/S2 with 2/6 systolic murmur heard t/o the precordium. Abd - Soft, NT/ND, Positive BS Ext - No pedal edema. left foot/ankle dressing clean, dry and intact. Distal pulses weak. Left upper arm thrill and bruit at fistual site Neuro - Alert and oriented x4. Garbled speech Psych - odd affect Skin - Warm and dry Objective Data Vital Signs Vital Signs: Vital Signs - 24 hr 12/08/24 10:30 12/08/24 10:45 12/08/24 11:00 Temperature Pulse Rate 63 61 63 Respiratory Rate Blood Pressure 147/80 H 142/74 H 131/72 Pulse Oximetry Oxygen Delivery Oxygen Flow Rate 12/08/24 11:13 12/08/24 11:27 12/08/24 12:00 Temperature 98.0 F Pulse Rate 59 L 62 64 Respiratory Rate 16 Blood Pressure 138/65 131/61 Pulse Oximetry Oxygen Delivery Oxygen Flow Rate 12/08/24 15:03 12/08/24 17:05 12/08/24 17:15 Temperature 98.7 F 97.1 F L Pulse Rate 86 61 63 Respiratory Rate 16 18 17 Blood Pressure 150/82 H 83/49 L 117/46 L Pulse Oximetry 98 100 100 Oxygen Delivery Room Air Simple Face Mask Room Air Oxygen Flow Rate 10 12/08/24 17:30 12/08/24 17:45 12/08/24 17:58 Temperature Pulse Rate 66 66 67 Respiratory Rate 19 17 17 Blood Pressure 132/47 L 139/42 L 139/44 L Pulse Oximetry 99 98 98 Oxygen Delivery Room Air Room Air Room Air Oxygen Flow Rate 12/08/24 20:00 12/08/24 20:00 12/08/24 21:50 Temperature 97.8 F Pulse Rate 69 66 Respiratory Rate 18 Blood Pressure 163/79 H Pulse Oximetry 97 Oxygen Delivery Room Air Oxygen Flow Rate 12/09/24 00:00 12/09/24 03:08 12/09/24 06:19 Temperature 98 F Pulse Rate 69 66 63 Respiratory Rate 16 Blood Pressure 148/72 H Pulse Oximetry 98 Oxygen Delivery Oxygen Flow Rate 12/09/24 08:00 12/09/24 08:00 Temperature Pulse Rate 66 Respiratory Rate Blood Pressure Pulse Oximetry Oxygen Delivery Room Air Oxygen Flow Rate Intake/Output Intake/Output: Intake & Output 12/06/24 12/07/24 12/08/24 12/09/24 23:59 23:59 23:59 23:59 Intake Total 250 2850 1300 0 Output Total 3100 50 2150 Balance -2850 2800 -850 0 Meds/Results Medications: Active Medications Generic Name Dose Route Start Last Admin Trade Name Fre PRN Reason Stop Dose Admin Amlodipine Besylate 10 mg 11/27/24 09:00 11/30/24 08:30 Amlodipine Besylate 10 Mg Tablet PO 10 mg DAILY [facility] Administration Atorvastatin Calcium 80 mg 11/27/24 09:00 12/01/24 11:36 Atorvastatin 40 Mg Tablet PO Not Given DAILY [facility] Carvedilol 25 mg 11/26/24 21:00 11/30/24 08:29 Carvedilol 25 Mg Tablet PO 25 mg Q12HR LILIAN Administration Clopidogrel Bisulfate 75 mg 11/27/24 09:00 12/06/24 09:32 Clopidogrel Bisulfate 75 Mg Tablet PO Not Given DAILY [facility] Collagenase 1 applic 12/03/24 21:00 12/08/24 20:39 Collagenase Oint 30 Gm Tube TOPICAL Not Given Q12HR [facility] Dextrose 12.5 gm 11/30/24 16:34 Dextrose 50% 25 Gm/50 Ml Syringe IV PUSH PRN PRN Hypoglycemia Protocol Docusate Sodium 100 mg 11/26/24 17:00 11/30/24 17:21 Docusate Sodium 100 Mg Capsule PO Not Given BID [facility] Glucagon 1 mg 11/30/24 16:34 Glucagon For Inj 1 Mg Vial IM PRN PRN Hypoglycemia Protocol Glucose 15 gm 11/30/24 16:34 Glucose Oral Gel 15 Gm Of Glucse In 37.5 Gm Tube PO PRN PRN Hypoglycemia Protocol Hydralazine HCl 50 mg 11/26/24 17:00 11/30/24 12:49 Hydralazine Hcl 50 Mg Tablet PO Not Given TID LILIAN Hydralazine HCl 10 mg 12/04/24 09:10 12/09/24 08:29 Hydralazine Hcl 20 Mg/Ml Vial IV PUSH 10 mg TID LILIAN Administration Albumin Human 50 mls @ 999 mls/hr 11/27/24 06:51 Albutein IVPB 12/27/24 06:50 Q10M PRN HYPOTENSION Ibuprofen 800 mg in 200 mls @ 400 mls/hr 11/29/24 17:35 12/08/24 20:37 Caldolor 800 Mg/200 Ml IVPB 400 mls/hr Q6H PRN Administration Breakthrough Pain Rated 1-3 or NPO Cefepime HCl 1 gm in 50 mls @ 100 mls/hr 11/30/24 18:00 12/08/24 18:39 Maxipime 1 Gm/Ns 50 Ml IVPB 100 mls/hr DAILY@1800 LILIAN Administration Metronidazole 500 mg in 100 mls @ 100 mls/hr 11/30/24 14:00 12/09/24 05:52 Flagyl 500 Mg/Iso Soln 100 Ml IVPB 100 mls/hr Q8H LILIAN Administration Dextrose 1,000 mls @ 100 mls/hr 11/30/24 16:34 Dextrose 5% 1,000 Ml IVPB PRN PRN Hypoglycemia Protocol Dextrose 1,000 mls @ 50 mls/hr 12/03/24 12:25 Dextrose 10% IV CONT .Q20H PRN if PN is interrupted Amino Acids/Electrolytes/Dextrose 1,000 mls @ 80 mls/hr 12/03/24 15:00 12/08/24 18:44 Clinimix E 4.25%/5% Solution IV CONT 80 mls/hr .[id number] LILIAN Administration Protocol Fat Emulsion Intravenous 250 mls @ 20.833 mls/hr 12/05/24 09:00 12/08/24 18:44 Lipids 20% IVPB 20.83 mls/hr Q24H LILIAN Administration Sodium Chloride 500 mls @ 30 mls/hr 12/08/24 14:40 12/08/24 18:03 Normal Saline Iv IV CONT Infused .[id number] LILIAN Infusion Insulin Aspart 2 - 5 units 12/01/24 00:00 12/09/24 03:00 Insulin Aspart (*Bkc) 100 Units/Ml SUB-Q Not Given Q6HR [facility] Protocol Naloxone HCl 0.1 mg 11/29/24 17:35 Naloxone Hcl 0.4 Mg/Ml Vial IV PUSH Q2M PRN Opiate Reversal Ondansetron HCl 4 mg 11/26/24 14:10 12/06/24 08:44 Ondansetron Inj 4 Mg/2 Ml Vial IV PUSH 4 mg Q4H PRN Administration Nausea Oxycodone/Acetaminophen 0.5 tablet 11/29/24 17:35 Oxycodone/Acetaminophen (*Crx) 5-325 Mg Tablet PO Q4H PRN Pain Rated 4-6 Pantoprazole Sodium 40 mg 12/02/24 12:00 12/09/24 08:29 Pantoprazole 40 Mg Tablet PO Not Given QAM LILIAN Polyethylene Glycol 17 gm 11/30/24 09:00 11/30/24 08:29 Polyethylene Glycol 3350 17 Gm Powd.Pack PO 17 gm QAM LILIAN Administration Senna/Docusate Sodium 2 tab 11/29/24 21:00 11/29/24 20:29 Senna/Docusate Sodium Tablet PO 2 tab HS LILIAN Administration Vancomycin HCl 1 each 11/26/24 13:16 Vancomycin For Hemodialysis IVPB PRN PRN Vancomycin Protocol Radiology Results: ITS Impressions Foot X-Ray 11/26/24 12:58 Impression: 1: Moderate soft tissue swelling of the second digit. The distal phalanx not well visualized. Cannot exclude osteomyelitis. 2: Extra-articular fracture left fifth proximal phalanx. Duplex Scan Lower Extremity Artery 11/26/24 13:53 IMPRESSION: 1. No evident hemodynamically significant stenosis either by follow-up elevation of peak systolic velocities or by direct visualization grayscale imaging with brisk systolic upstrokes arteries of the bilateral lower limbs. Head CT 11/30/24 12:22 IMPRESSION: 1. . 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 No acute intracranial process. 2. Age-related changes including mild diffuse volume loss and moderate scattered white matter hypoattenuation consistent with chronic small vessel ischemic disease. Chest X-Ray 11/30/24 12:37 IMPRESSION: 1. Opacities in the right mid and lower lung zones which could represent atelectasis, aspiration and/or pneumonia. 2. Small right pleural effusion. Foot MRI 12/05/24 13:43 IMPRESSION: Status post transmetatarsal amputation of the second digit. 2.4 x 1.8 x 3.3 cm peripherally enhancing fluid collection at the second interspace at the level the proximal metatarsal shafts is compatible with abscess. Diffuse myositis of the plantar musculature of the foot. No evidence for osteomyelitis or fracture. Susceptibility artifact at the operative bed and dorsal soft tissues at the second digit region could reflect artifact and/or open soft tissue wound. Correlate with physical exam. Modified Barium Swallow 12/07/24 09:32 IMPRESSION: Pharyngeal dysphagia with laryngeal penetration and aspiration. Please correlate with speech pathologist findings and specific feeding recommendations. Labs Labs: Laboratory Results - last 24 hr 12/08/24 12/08/24 12/09/24 15:23 18:12 00:14 WBC RBC Hgb Hct MCV MCH MCHC RDW Plt Count MPV Immature Gran % (Auto) Neut % (Auto) Lymph % (Auto) [place] % (Auto) Eos % (Auto) Baso % (Auto) Lymph # (Auto) [place] # (Auto) Eos # (Auto) Baso # (Auto) Abs Immat Gran (auto) Absolute Neuts (auto) Absolute Nucleated RBC Nucleated RBC % Sodium Potassium Chloride Carbon Dioxide Anion Gap BUN Creatinine Estim Creat Clear Calc Estimated GFR Glucose POC Capillary Glucose 95 98 105 Calcium Phosphorus Magnesium Albumin 12/09/24 06:09 WBC 11.3 H RBC 3.04 L Hgb 8.8 L Hct 28.7 L MCV 94.4 MCH 28.9 MCHC 30.7 L RDW 15.0 H Plt Count 243 MPV 10.4 Immature Gran % (Auto) 1.7 H Neut % (Auto) 74.8 H Lymph % (Auto) 12.3 L [place] % (Auto) 8.2 Eos % (Auto) 2.1 Baso % (Auto) 0.9 Lymph # (Auto) 1.40 [place] # (Auto) 0.9 H Eos # (Auto) 0.2 Baso # (Auto) 0.1 Abs Immat Gran (auto) 0.19 H Absolute Neuts (auto) 8.5 H Absolute Nucleated RBC 0.000 Nucleated RBC % 0.0 Sodium 137 Potassium 4.4 Chloride 102 Carbon Dioxide 25 Anion Gap 10 BUN 41 H D Creatinine 4.94 H Estim Creat Clear Calc 16 Estimated GFR 12 L Glucose 112 H POC Capillary Glucose Calcium 7.7 L Phosphorus 6.7 H Magnesium 2.2 Albumin 2.9 L
--- NOTE | 2024-12-09 12:01 | PCDIET ---
TUBE FEEDING NOTE: Tube feeding recommendation: Nepro, start at 20ml/hr and advance by 10mls q 4 hrs to goal rate of 50ml/hr to provide 1980kcals, 89g protein, 800ml free water. Recommend a flush of 175ml q 4 hrs to total 1850ml free water per 24 hrs.
[2024-12-09 12:03] LABS: Glucose Point of Care 103 mg/dl (65-105)
--- NOTE | 2024-12-09 13:58 | P.PNAN_ITS ---
Anes - Prog Note Post-Op Date/Time: 12/09/24 13:58 Cardiovascular status: normal Respiratory status: normal Airway patency: baseline Mental status: baseline Post-Op hydration status: normal Vital Signs: Last Vital Signs Temp 98 F 12/09/24 06:19 Pulse 66 12/09/24 08:00 Resp 16 12/09/24 06:19 BP 148/72 H 12/09/24 06:19 Pulse Ox 98 12/09/24 06:19 O2 Del Method Room Air 12/09/24 08:00 O2 Flow Rate 10 12/08/24 17:05 Pain Score (VAS): 0 I/O: Intake & Output 12/08/24 12/09/24 12/09/24 23:59 07:59 15:59 Intake Total 100 0 Output Total 50 Balance 50 0 Laboratory Tests 12/09/24 06:09 12/09/24 06:09 12/08/24 12/08/24 12/09/24 15:23 18:12 00:14 WBC RBC Hgb Hct MCV MCH MCHC RDW Plt Count MPV Immature Gran % (Auto) Neut % (Auto) Lymph % (Auto) [place] % (Auto) Eos % (Auto) Baso % (Auto) Lymph # (Auto) [place] # (Auto) Eos # (Auto) Baso # (Auto) Abs Immat Gran (auto) Absolute Neuts (auto) Absolute Nucleated RBC Nucleated RBC % Sodium Potassium Chloride Carbon Dioxide Anion Gap BUN Creatinine Estim Creat Clear Calc Estimated GFR Glucose POC Capillary Glucose 95 98 105 Calcium Phosphorus Magnesium Albumin 12/09/24 12/09/24 06:09 11:59 WBC 11.3 H RBC 3.04 L Hgb 8.8 L Hct 28.7 L MCV 94.4 MCH 28.9 MCHC 30.7 L RDW 15.0 H Plt Count 243 MPV 10.4 Immature Gran % (Auto) 1.7 H Neut % (Auto) 74.8 H Lymph % (Auto) 12.3 L [place] % (Auto) 8.2 Eos % (Auto) 2.1 Baso % (Auto) 0.9 Lymph # (Auto) 1.40 [place] # (Auto) 0.9 H Eos # (Auto) 0.2 Baso # (Auto) 0.1 Abs Immat Gran (auto) 0.19 H Absolute Neuts (auto) 8.5 H Absolute Nucleated RBC 0.000 Nucleated RBC % 0.0 Sodium 137 Potassium 4.4 Chloride 102 Carbon Dioxide 25 Anion Gap 10 BUN 41 H D Creatinine 4.94 H Estim Creat Clear Calc 16 Estimated GFR 12 L Glucose 112 H POC Capillary Glucose 103 Calcium 7.7 L Phosphorus 6.7 H Magnesium 2.2 Albumin 2.9 L Microbiology 12/08/24 16:35 Foot Left Anaerobic Culture - Preliminary 12/03/24 05:35 Blood Blood Culture - Final Post-procedural complaints: none Patient Feedback: Patient satisfied with anesthetic care.
--- NOTE | 2024-12-09 14:40 | WPDGIPROGNO ---
Progress Note: A&P Assessment and Plan (1) Dysphagia as late effect of cerebrovascular accident (CVA): Code(s): I69.391 - Dysphagia following cerebral infarction Status: Acute Assessment and Plan: Will place PEG tomorrow . Patient already receiving appropriate antibiotic coverage. Orders for consent and NPO after midnight placed. Subjective Date/time seen: 12/09/24 14:40 Objective Data Vital Signs Vital Signs: Vital Signs - 24 hr 12/08/24 15:03 12/08/24 17:05 12/08/24 17:15 Temperature 98.7 F 97.1 F L Pulse Rate 86 61 63 Respiratory Rate 16 18 17 Blood Pressure 150/82 H 83/49 L 117/46 L Pulse Oximetry 98 100 100 Oxygen Delivery Room Air Simple Face Mask Room Air Oxygen Flow Rate 10 12/08/24 17:30 12/08/24 17:45 12/08/24 17:58 Temperature Pulse Rate 66 66 67 Respiratory Rate 19 17 17 Blood Pressure 132/47 L 139/42 L 139/44 L Pulse Oximetry 99 98 98 Oxygen Delivery Room Air Room Air Room Air Oxygen Flow Rate 12/08/24 20:00 12/08/24 20:00 12/08/24 21:50 Temperature 97.8 F Pulse Rate 69 66 Respiratory Rate 18 Blood Pressure 163/79 H Pulse Oximetry 97 Oxygen Delivery Room Air Oxygen Flow Rate 12/09/24 00:00 12/09/24 03:08 12/09/24 06:19 Temperature 98 F Pulse Rate 69 66 63 Respiratory Rate 16 Blood Pressure 148/72 H Pulse Oximetry 98 Oxygen Delivery Oxygen Flow Rate 12/09/24 08:00 12/09/24 08:00 Temperature Pulse Rate 66 Respiratory Rate Blood Pressure Pulse Oximetry Oxygen Delivery Room Air Oxygen Flow Rate Intake/Output Intake/Output: Intake & Output 12/06/24 12/07/24 12/08/24 12/09/24 23:59 23:59 23:59 23:59 Intake Total 250 2850 1300 0 Output Total 3100 50 2150 Balance -2850 2800 -850 0 Meds/Results Medications: Active Medications Generic Name Dose Route Start Last Admin Trade Name Freq PRN Reason Stop Dose Admin Amlodipine Besylate 10 mg 11/27/24 09:00 11/30/24 08:30 Amlodipine Besylate 10 Mg Tablet PO 10 mg DAILY LILIAN Administration Atorvastatin Calcium 80 mg 11/27/24 09:00 12/01/24 11:36 Atorvastatin 40 Mg Tablet PO Not Given DAILY [facility] Carvedilol 25 mg 11/26/24 21:00 11/30/24 08:29 Carvedilol 25 Mg Tablet PO 25 mg Q12HR [facility]IAN Administration Clopidogrel Bisulfate 75 mg 11/27/24 09:00 12/06/24 09:32 Clopidogrel Bisulfate 75 Mg Tablet PO Not Given DAILY [facility] Collagenase 1 applic 12/03/24 21:00 12/08/24 20:39 Collagenase Oint 30 Gm Tube TOPICAL Not Given Q12HR [facility] Dextrose 12.5 gm 11/30/24 16:34 Dextrose 50% 25 Gm/50 Ml Syringe IV PUSH PRN PRN Hypoglycemia Protocol Docusate Sodium 100 mg 11/26/24 17:00 11/30/24 17:21 Docusate Sodium 100 Mg Capsule PO Not Given BID [facility] Glucagon 1 mg 11/30/24 16:34 Glucagon For Inj 1 Mg Vial IM PRN PRN Hypoglycemia Protocol Glucose 15 gm 11/30/24 16:34 Glucose Oral Gel 15 Gm Of Glucse In 37.5 Gm Tube PO PRN PRN Hypoglycemia Protocol Hydralazine HCl 50 mg 11/26/24 17:00 11/30/24 12:49 Hydralazine Hcl 50 Mg Tablet PO Not Given TID [facility] Hydralazine HCl 10 mg 12/09/24 11:00 12/09/24 12:35 Hydralazine Hcl 20 Mg/Ml Vial IV PUSH 10 mg Q8H LILIAN Administration Albumin Human 50 mls @ 999 mls/hr 11/27/24 06:51 Albutein IVPB 12/27/24 06:50 Q10M PRN HYPOTENSION Ibuprofen 800 mg in 200 mls @ 400 mls/hr 11/29/24 17:35 12/08/24 20:37 Caldolor 800 Mg/200 Ml IVPB 400 mls/hr Q6H PRN Administration Breakthrough Pain Rated 1-3 or NPO Cefepime HCl 1 gm in 50 mls @ 100 mls/hr 11/30/24 18:00 12/08/24 18:39 Maxipime 1 Gm/Ns 50 Ml IVPB 100 mls/hr DAILY@1800 LILIAN Administration Metronidazole 500 mg in 100 mls @ 100 mls/hr 11/30/24 14:00 12/09/24 05:52 Flagyl 500 Mg/Iso Soln 100 Ml IVPB 100 mls/hr Q8H [facility] Administration Dextrose 1,000 mls @ 100 mls/hr 11/30/24 16:34 Dextrose 5% 1,000 Ml IVPB PRN PRN Hypoglycemia Protocol Dextrose 1,000 mls @ 50 mls/hr 12/03/24 12:25 Dextrose 10% IV CONT .Q20H PRN if PN is interrupted Amino Acids/Electrolytes/Dextrose 1,000 mls @ 80 mls/hr 12/03/24 15:00 12/08/24 18:44 Clinimix E 4.25%/5% Solution IV CONT 80 mls/hr .[id number] LILIAN Administration Protocol Fat Emulsion Intravenous 250 mls @ 20.833 mls/hr 12/05/24 09:00 12/08/24 18:44 Lipids 20% IVPB 20.83 mls/hr Q24H L[facility]IAN Administration Sodium Chloride 500 mls @ 30 mls/hr 12/08/24 14:40 12/08/24 18:03 Normal Saline Iv IV CONT Infused .[id number] [facility] Infusion Insulin Aspart 2 - 5 units 12/01/24 00:00 12/09/24 03:00 Insulin Aspart (*Bkc) 100 Units/Ml SUB-Q Not Given Q6HR [facility] Protocol Naloxone HCl 0.1 mg 11/29/24 17:35 Naloxone Hcl 0.4 Mg/Ml Vial IV PUSH Q2M PRN Opiate Reversal Ondansetron HCl 4 mg 11/26/24 14:10 12/06/24 08:44 Ondansetron Inj 4 Mg/2 Ml Vial IV PUSH 4 mg Q4H PRN Administration Nausea Oxycodone/Acetaminophen 0.5 tablet 11/29/24 17:35 Oxycodone/Acetaminophen (*Crx) 5-325 Mg Tablet PO Q4H PRN Pain Rated 4-6 Pantoprazole Sodium 40 mg 12/02/24 12:00 12/09/24 08:29 Pantoprazole 40 Mg Tablet PO Not Given QAM [facility] Polyethylene Glycol 17 gm 11/30/24 09:00 11/30/24 08:29 Polyethylene Glycol 3350 17 Gm Powd.Pack PO 17 gm QAM LILIAN Administration Senna/Docusate Sodium 2 tab 11/29/24 21:00 11/29/24 20:29 Senna/Docusate Sodium Tablet PO 2 tab HS L[facility]IAN Administration Vancomycin HCl 1 each 11/26/24 13:16 Vancomycin For Hemodialysis IVPB PRN PRN Vancomycin Protocol Radiology Results: ITS Impressions Foot X-Ray 11/26/24 12:58 Impression: 1: Moderate soft tissue swelling of the second digit. The distal phalanx not well visualized. Cannot exclude osteomyelitis. 2: Extra-articular fracture left fifth proximal phalanx. Duplex Scan Lower Extremity Artery 11/26/24 13:53 IMPRESSION: 1. No evident hemodynamically significant stenosis either by follow-up elevation of peak systolic velocities or by direct visualization grayscale imaging with brisk systolic upstrokes arteries of the bilateral lower limbs. Head CT 11/30/24 12:22 IMPRESSION: 1. . 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 No acute intracranial process. 2. Age-related changes including mild diffuse volume loss and moderate scattered white matter hypoattenuation consistent with chronic small vessel ischemic disease. Chest X-Ray 11/30/24 12:37 IMPRESSION: 1. Opacities in the right mid and lower lung zones which could represent atelectasis, aspiration and/or pneumonia. 2. Small right pleural effusion. Foot MRI 12/05/24 13:43 IMPRESSION: Status post transmetatarsal amputation of the second digit. 2.4 x 1.8 x 3.3 cm peripherally enhancing fluid collection at the second interspace at the level the proximal metatarsal shafts is compatible with abscess. Diffuse myositis of the plantar musculature of the foot. No evidence for osteomyelitis or fracture. Susceptibility artifact at the operative bed and dorsal soft tissues at the second digit region could reflect artifact and/or open soft tissue wound. Correlate with physical exam. Modified Barium Swallow 12/07/24 09:32 IMPRESSION: Pharyngeal dysphagia with laryngeal penetration and aspiration. Please correlate with speech pathologist findings and specific feeding recommendations. Labs Labs: Laboratory Results - last 24 hr 12/08/24 12/08/24 12/09/24 15:23 18:12 00:14 WBC RBC Hgb Hct MCV MCH MCHC RDW Plt Count MPV Immature Gran % (Auto) Neut % (Auto) Lymph % (Auto) [place] % (Auto) Eos % (Auto) Baso % (Auto) Lymph # (Auto) [place] # (Auto) Eos # (Auto) Baso # (Auto) Abs Immat Gran (auto) Absolute Neuts (auto) Absolute Nucleated RBC Nucleated RBC % Sodium Potassium Chloride Carbon Dioxide Anion Gap BUN Creatinine Estim Creat Clear Calc Estimated GFR Glucose POC Capillary Glucose 95 98 105 Calcium Phosphorus Magnesium Albumin 12/09/24 12/09/24 06:09 11:59 WBC 11.3 H RBC 3.04 L Hgb 8.8 L Hct 28.7 L MCV 94.4 MCH 28.9 MCHC 30.7 L RDW 15.0 H Plt Count 243 MPV 10.4 Immature Gran % (Auto) 1.7 H Neut % (Auto) 74.8 H Lymph % (Auto) 12.3 L [place] % (Auto) 8.2 Eos % (Auto) 2.1 Baso % (Auto) 0.9 Lymph # (Auto) 1.40 [place] # (Auto) 0.9 H Eos # (Auto) 0.2 Baso # (Auto) 0.1 Abs Immat Gran (auto) 0.19 H Absolute Neuts (auto) 8.5 H Absolute Nucleated RBC 0.000 Nucleated RBC % 0.0 Sodium 137 Potassium 4.4 Chloride 102 Carbon Dioxide 25 Anion Gap 10 BUN 41 H D Creatinine 4.94 H Estim Creat Clear Calc 16 Estimated GFR 12 L Glucose 112 H POC Capillary Glucose 103 Calcium 7.7 L Phosphorus 6.7 H Magnesium 2.2 Albumin 2.9 L
--- NOTE | 2024-12-09 14:48 | P.PNNP_ITS ---
Progress Note: A&P Assessment and Plan (1) End stage renal disease: Code(s): N18.6 - End stage renal disease Status: Chronic Assessment and Plan: * HD tomorrow * continue Fri/Fri/Friday dialysis schedule while hospitalized * follow electrolytes, volume status, and clearance * kidney disease due to biopsy proven diabetes and hypertension along with vascular disease (CVA + hyperlipidemia) (2) Gangrene of toe of left foot: Code(s): I96 - Gangrene, not elsewhere classified Status: Acute Assessment and Plan: * as noted by clinical exam on admission * Surgery following * s/p open transmetatarsal amputation left 2nd toe (11/29) * MRI of left foot results reviewed -- see #4 * s/p excisional debridement of left foot (12/08) * on IV antibiotics (3) Cellulitis of left foot: Code(s): L03.116 - Cellulitis of left lower limb Status: Acute Assessment and Plan: * as noted on presentation * likely a complication of diabetes and #2 * on antibiotics (4) Bacteremia: Code(s): R78.81 - Bacteremia Status: Acute Assessment and Plan: * as noted: * blood cultures (11/26): MRSA * blood cultures (11/28): MRSA * blood cultures (12/01): MRSA (1 out of 2 sets) * blood cultures (12/02): no growth * blood cultures (12/03): Staphylococcus aureus (1 out of 2 sets) * presumably related to #2 and #3 * results of KATLIN noted (12/01): * No evidence of infective endocarditis. The aortic valve is severely calcified with severe aortic stenosis with an ALBINO of 0.9cm2 by planimetry. * on antibiotics * MRI of left foot (12/05) noted: * status post transmetatarsal amputation of the second digit * 2.4 x 1.8 x 3.3 cm peripherally enhancing fluid collection at the second interspace at the level the proximal metatarsal shafts is compatible with abscess * diffuse myositis of the plantar musculature of the foot * no evidence for osteomyelitis or fracture * follow culture data (5) Altered mental status: Code(s): R41.82 - Altered mental status, unspecified Status: Acute Assessment and Plan: * slow improvement noted (if not back to baseline) * still with noted dysarthria * initially noted this on morning of 11/30 * testing/evaluation noted at that time: * ABG: pH 7.538, pCO2 35.8, pO2 53.2, HCO3 29.8 * lactic normal; procalcitonin elevated at 6.1; glucose okay * CT of brain: unchanged small old infarcts in the right frontal lobe, abdelrahman, right lentiform nucleus and left thalamus; no acute intracranial process; age-related changes including mild diffuse volume loss and moderate scattered white matter hypoattenuation consistent with chronic small vessel ischemic disease * CXR: opacities in the right mid and lower lung zones which could represent atelectasis, aspiration and/or pneumonia; small right pleural effusion * MRI of brain today * continue supportive therapy (6) Aspiration pneumonia: Code(s): J69.0 - Pneumonitis due to inhalation of food and vomit Status: Acute Assessment and Plan: * as suggested by CXR on 11/30 * on antibiotics * viral testing (COVID/RSV/influenza) negative * NPO as failed modified barium swallow x 3 * speech therapy following * started on PPN for nutritional support * may need PEG-tube * follow respiratory status (7) Anemia: Code(s): D64.9 - Anemia, unspecified Status: Chronic Assessment and Plan: * due to ESRD with worsening due to acute illness/infection * follow trend of H/H * Epogen with HD (8) Heart failure with preserved ejection fraction: Qualifiers: Heart failure chronicity: unspecified Qualified Code(s): I50.30 - Unspecified diastolic (congestive) heart failure Code(s): I50.30 - Unspecified diastolic (congestive) heart failure Status: Chronic Assessment and Plan: * appears compensated * fluid removal with dialysis to maintain euvolemia * continue supportive therapy (9) Hypertension: Qualifiers: Hypertension type: unspecified Qualified Code(s): I10 - Essential (primary) hypertension Code(s): I10 - Essential (primary) hypertension Status: Chronic Assessment and Plan: * reasonable control during hospitalization * a bit elevated by recent check * known history of poor control at baseline * follow trend of hemodynamics (10) Diabetes: Qualifiers: Diabetes mellitus type: type 2 Diabetes mellitus snf insulin use: without snf use Diabetes mellitus complication status: with kidney complications Diabetes mellitus complication detail: with chronic kidney disease Chronic kidney disease stage: on chronic dialysis Qualified Code(s): E 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 L Subjective Date/time seen: 12/09/24 14:48 Interval history: Follow-up for end stage renal disease on hemodialysis. Tolerated dialysis treatment yesterday morning and surgical/operative intervention on left foot yesterday afternoon without any issues or problems; noted plans for G-tube placement tomorrow. Exam 2 Narrative: General: WD/WN male in NAD Heart: normal S1 and S2; no rub Lungs: clear anteriorly Abdomen: soft, nontender, nondistended, positive bowel sounds Extremities: no cyanosis or clubbing; no edema Skin: left foot dressings noted Objective Data Vital Signs Vital Signs: Vital Signs Temp Pulse Resp BP Pulse Ox O2 Del Method 12/09/24 14:40 98.2 F 69 12 156/72 H 97 12/09/24 12:00 68 12/09/24 08:00 66 12/09/24 08:00 Room Air 12/09/24 06:19 98 F 63 16 148/72 H 98 12/09/24 03:08 66 Intake/Output Intake/Output: Intake & Output 12/07/24 12/08/24 12/09/24 12/10/24 23:59 23:59 23:59 23:59 Intake Total 2850 1350 200 Output Total 50 2150 Balance 2800 -800 200 Meds/Results Medications: Active Medications Generic Name Dose Route Start Last Admin Trade Name Freq PRN Reason Stop Dose Admin Amlodipine Besylate 10 mg 11/27/24 09:00 11/30/24 08:30 Amlodipine Besylate 10 Mg Tablet PO 10 mg DAILY LILIAN Administration Aspirin 300 mg 12/09/24 15:40 12/09/24 17:27 Aspirin 300 Mg Suppository RECTAL 300 mg DAILY LILIAN Administration Atorvastatin Calcium 80 mg 11/27/24 09:00 12/01/24 11:36 Atorvastatin 40 Mg Tablet PO Not Given DAILY [facility] Carvedilol 25 mg 11/26/24 21:00 11/30/24 08:29 Carvedilol 25 Mg Tablet PO 25 mg Q12HR LILIAN Administration Clopidogrel Bisulfate 75 mg 11/27/24 09:00 12/06/24 09:32 Clopidogrel Bisulfate 75 Mg Tablet PO Not Given DAILY [facility] Collagenase 1 applic 12/03/24 21:00 12/09/24 21:11 Collagenase Oint 30 Gm Tube TOPICAL 1 applic Q12HR [facility] Administration Dextrose 12.5 gm 11/30/24 16:34 Dextrose 50% 25 Gm/50 Ml Syringe IV PUSH PRN PRN Hypoglycemia Protocol Docusate Sodium 100 mg 11/26/24 17:00 11/30/24 17:21 Docusate Sodium 100 Mg Capsule PO Not Given BID [facility] Glucagon 1 mg 11/30/24 16:34 Glucagon For Inj 1 Mg Vial IM PRN PRN Hypoglycemia Protocol Glucose 15 gm 11/30/24 16:34 Glucose Oral Gel 15 Gm Of Glucse In 37.5 Gm Tube PO PRN PRN Hypoglycemia Protocol Hydralazine HCl 50 mg 11/26/24 17:00 11/30/24 12:49 Hydralazine Hcl 50 Mg Tablet PO Not Given TID [facility] Hydralazine HCl 10 mg 12/10/24 06:00 Hydralazine Hcl 20 Mg/Ml Vial IV PUSH Q8HR [facility] Albumin Human 50 mls @ 999 mls/hr 11/27/24 06:51 Albutein IVPB 12/27/24 06:50 Q10M PRN HYPOTENSION Ibuprofen 800 mg in 200 mls @ 400 mls/hr 11/29/24 17:35 12/08/24 20:37 Caldolor 800 Mg/200 Ml IVPB 400 mls/hr Q6H PRN Administration Breakthrough Pain Rated 1-3 or NPO Cefepime HCl 1 gm in 50 mls @ 100 mls/hr 11/30/24 18:00 12/09/24 17:26 Maxipime 1 Gm/Ns 50 Ml IVPB 100 mls/hr DAILY@1800 [facility] Administration Metronidazole 500 mg in 100 mls @ 100 mls/hr 11/30/24 14:00 12/09/24 21:04 Flagyl 500 Mg/Iso Soln 100 Ml IVPB 100 mls/hr Q8H [facility] Administration Dextrose 1,000 mls @ 100 mls/hr 11/30/24 16:34 Dextrose 5% 1,000 Ml IVPB PRN PRN Hypoglycemia Protocol Dextrose 1,000 mls @ 50 mls/hr 12/03/24 12:25 Dextrose 10% IV CONT .Q20H PRN if PN is interrupted Sodium Chloride 500 mls @ 30 mls/hr 12/08/24 14:40 12/08/24 18:03 Normal Saline Iv IV CONT Infused .[id number] [facility] Infusion Insulin Aspart 2 - 5 units 12/01/24 00:00 12/09/24 17:24 Insulin Aspart (*Bkc) 100 Units/Ml SUB-Q Not Given Q6HR [facility] Protocol Miscellaneous Information 1 each 12/10/24 00:01 Please Renew Cefepime_. Per [employer] Procedure, It Will Discontinue If Not Renewed XX 01/09/25 00:00 CLARIFY LILIAN Naloxone HCl 0.1 mg 11/29/24 17:35 Naloxone Hcl 0.4 Mg/Ml Vial IV PUSH Q2M PRN Opiate Reversal Ondansetron HCl 4 mg 11/26/24 14:10 12/06/24 08:44 Ondansetron Inj 4 Mg/2 Ml Vial IV PUSH 4 mg Q4H PRN Administration Nausea Oxycodone/Acetaminophen 0.5 tablet 11/29/24 17:35 Oxycodone/Acetaminophen (*Crx) 5-325 Mg Tablet PO Q4H PRN Pain Rated 4-6 Pantoprazole Sodium 40 mg 12/02/24 12:00 12/09/24 08:29 Pantoprazole 40 Mg Tablet PO Not Given QAM [facility] Polyethylene Glycol 17 gm 11/30/24 09:00 11/30/24 08:29 Polyethylene Glycol 3350 17 Gm Powd.Pack PO 17 gm QAM LILIAN Administration Senna/Docusate Sodium 2 tab 11/29/24 21:00 11/29/24 20:29 Senna/Docusate Sodium Tablet PO 2 tab HS [facility]IAN Administration Vancomycin HCl 1 each 11/26/24 13:16 Vancomycin For Hemodialysis IVPB PRN PRN Vancomycin Protocol Radiology Results: ITS Impressions Foot X-Ray 11/26/24 12:58 Impression: 1: Moderate soft tissue swelling of the second digit. The distal phalanx not well visualized. Cannot exclude osteomyelitis. 2: Extra-articular fracture left fifth proximal phalanx. Duplex Scan Lower Extremity Artery 11/26/24 13:53 IMPRESSION: 1. No evident hemodynamically significant stenosis either by follow-up elevation of peak systolic velocities or by direct visualization grayscale imaging with brisk systolic upstrokes arteries of the bilateral lower limbs. Head CT 11/30/24 12:22 IMPRESSION: 1. . 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 No acute intracranial process. 2. Age-related changes including mild diffuse volume loss and moderate scattered white matter hypoattenuation consistent with chronic small vessel ischemic disease. Chest X-Ray 11/30/24 12:37 IMPRESSION: 1. Opacities in the right mid and lower lung zones which could represent atelectasis, aspiration and/or pneumonia. 2. Small right pleural effusion. Foot MRI 12/05/24 13:43 IMPRESSION: Status post transmetatarsal amputation of the second digit. 2.4 x 1.8 x 3.3 cm peripherally enhancing fluid collection at the second interspace at the level the proximal metatarsal shafts is compatible with abscess. Diffuse myositis of the plantar musculature of the foot. No evidence for osteomyelitis or fracture. Susceptibility artifact at the operative bed and dorsal soft tissues at the second digit region could reflect artifact and/or open soft tissue wound. Correlate with physical exam. Modified Barium Swallow 12/07/24 09:32 IMPRESSION: Pharyngeal dysphagia with laryngeal penetration and aspiration. Please correlate with speech pathologist findings and specific feeding recommendations. Labs Labs: Laboratory Tests 12/09/24 06:09 12/09/24 06:09 Calcium 7.7 L Phosphorus 6.7 H Magnesium 2.2 Albumin 2.9 L Microbiology 12/08/24 16:35 Foot Left Anaerobic Culture - Preliminary
--- NOTE | 2024-12-09 15:47 | PM.PNGS ---
Progress Note: A&P Assessment and Plan (1) Necrotizing soft tissue infection: Code(s): M79.89 - Other specified soft tissue disorders Status: Acute Assessment and Plan: Patient underwent further surgical debridement in the OR yesterday. Dr. Goodson is planning to evaluate the wound later today. Continue daily dressing changes. (2) Gangrene of toe of left foot: Code(s): I96 - Gangrene, not elsewhere classified Status: Acute (3) Bacteremia: Code(s): R78.81 - Bacteremia Status: Acute Assessment and Plan: Blood cultures will be repeated again tomorrow. If patient loses peripheral IV access before it is ideal to place a PICC line with negative blood cultures, then we may need to consider alternative central line placement. (4) CVA (cerebral vascular accident): Code(s): I63.9 - Cerebral infarction, unspecified Status: Chronic Assessment and Plan: Brain MRI today concerning for acute stroke with possible ventriculitis. Neurosurgery consulted. (5) Chronic kidney disease (CKD), stage V: Code(s): N18.5 - Chronic kidney disease, stage 5 Status: Chronic Assessment and Plan: Nephrology following and patient had dialysis yesterday. Per nursing, there were some issues with the fistula clotting off during dialysis. Nurse reached out to Nephrology who does not feel they need any other dialysis access at this time. PPN will be put on hold to hopefully help with this issue and since patient will have a G-tube placed tomorrow and can then start having tube feedings for nutrition. Subjective Subjective Date/Time Seen: 12/09/24 15:47 Interval history: Patient seen today with speech therapy at the bedside. He denies any pain in his left foot. Nursing is having issues with IV access. He had 2 peripheral IVs blow in the last 24 hours. They had vascular access come place another peripheral IV line today. This is currently functioning well. He stated the hospitalist was requesting an IJ line from our service. I called and spoke with the hospitalist, who feels this is only necessary if his peripheral line is no longer functioning. Could consider a central line if he no longer has peripheral IV access. His last set of blood cultures on 12/03/2024 was still positive for MRSA and the plan is to repeat blood cultures tomorrow. If his bacteremia is cleared, then could consider a PICC line for long-term IV antibiotics. Patient also had a brain MRI today that shows concerns for an acute stroke and possible ventriculitis. Neurosurgery was consulted. Exam Const: General: comfortable, no acute distress and ill appearing Extrem: Other: Left foot dressing dry and intact. Objective Data Vital Signs Vital Signs: Vital Signs - 24 hr 12/08/24 17:05 12/08/24 17:15 12/08/24 17:30 Temperature 97.1 F L Pulse Rate 61 63 66 Respiratory Rate 18 17 19 Blood Pressure 83/49 L 117/46 L 132/47 L Pulse Oximetry 100 100 99 Oxygen Delivery Simple Face Mask Room Air Room Air Oxygen Flow Rate 10 12/08/24 17:45 12/08/24 17:58 12/08/24 20:00 Temperature Pulse Rate 66 67 Respiratory Rate 17 17 Blood Pressure 139/42 L 139/44 L Pulse Oximetry 98 98 Oxygen Delivery Room Air Room Air Room Air Oxygen Flow Rate 12/08/24 20:00 12/08/24 21:50 12/09/24 00:00 Temperature 97.8 F Pulse Rate 69 66 69 Respiratory Rate 18 Blood Pressure 163/79 H Pulse Oximetry 97 Oxygen Delivery Oxygen Flow Rate 12/09/24 03:08 12/09/24 06:19 12/09/24 08:00 Temperature 98 F Pulse Rate 66 63 Respiratory Rate 16 Blood Pressure 148/72 H Pulse Oximetry 98 Oxygen Delivery Room Air Oxygen Flow Rate 12/09/24 08:00 12/09/24 15:00 Temperature 98.2 F Pulse Rate 66 69 Respiratory Rate 12 Blood Pressure 156/72 H Pulse Oximetry 97 Oxygen Delivery Oxygen Flow Rate Intake/Output Intake/Output: Intake & Output 12/06/24 12/07/24 12/08/24 12/09/24 23:59 23:59 23:59 23:59 Intake Total 250 2850 1300 0 Output Total 3100 50 2150 Balance -2850 2800 -850 0 Meds/Results Medications: Active Medications Generic Name Dose Route Start Last Admin Trade Name Freq PRN Reason Stop Dose Admin Amlodipine Besylate 10 mg 11/27/24 09:00 11/30/24 08:30 Amlodipine Besylate 10 Mg Tablet PO 10 mg DAILY [facility] Administration Aspirin 300 mg 12/09/24 15:40 Aspirin 300 Mg Suppository RECTAL DAILY [facility] Atorvastatin Calcium 80 mg 11/27/24 09:00 12/01/24 11:36 Atorvastatin 40 Mg Tablet PO Not Given DAILY [facility] Carvedilol 25 mg 11/26/24 21:00 11/30/24 08:29 Carvedilol 25 Mg Tablet PO 25 mg Q12HR [facility] Administration Clopidogrel Bisulfate 75 mg 11/27/24 09:00 12/06/24 09:32 Clopidogrel Bisulfate 75 Mg Tablet PO Not Given DAILY [facility] Collagenase 1 applic 12/03/24 21:00 12/08/24 20:39 Collagenase Oint 30 Gm Tube TOPICAL Not Given Q12HR [facility] Dextrose 12.5 gm 11/30/24 16:34 Dextrose 50% 25 Gm/50 Ml Syringe IV PUSH PRN PRN Hypoglycemia Protocol Docusate Sodium 100 mg 11/26/24 17:00 11/30/24 17:21 Docusate Sodium 100 Mg Capsule PO Not Given BID [facility] Glucagon 1 mg 11/30/24 16:34 Glucagon For Inj 1 Mg Vial IM PRN PRN Hypoglycemia Protocol Glucose 15 gm 11/30/24 16:34 Glucose Oral Gel 15 Gm Of Glucse In 37.5 Gm Tube PO PRN PRN Hypoglycemia Protocol Hydralazine HCl 50 mg 11/26/24 17:00 11/30/24 12:49 Hydralazine Hcl 50 Mg Tablet PO Not Given TID [facility] Hydralazine HCl 10 mg 12/09/24 11:00 12/09/24 12:35 Hydralazine Hcl 20 Mg/Ml Vial IV PUSH 10 mg Q8H [facility] Administration Albumin Human 50 mls @ 999 mls/hr 11/27/24 06:51 Albutein IVPB 12/27/24 06:50 Q10M PRN HYPOTENSION Ibuprofen 800 mg in 200 mls @ 400 mls/hr 11/29/24 17:35 12/08/24 20:37 Caldolor 800 Mg/200 Ml IVPB 400 mls/hr Q6H PRN Administration Breakthrough Pain Rated 1-3 or NPO Cefepime HCl 1 gm in 50 mls @ 100 mls/hr 11/30/24 18:00 12/08/24 18:39 Maxipime 1 Gm/Ns 50 Ml IVPB 100 mls/hr DAILY@1800 [facility] Administration Metronidazole 500 mg in 100 mls @ 100 mls/hr 11/30/24 14:00 12/09/24 05:52 Flagyl 500 Mg/Iso Soln 100 Ml IVPB 100 mls/hr Q8H [facility] Administration Dextrose 1,000 mls @ 100 mls/hr 11/30/24 16:34 Dextrose 5% 1,000 Ml IVPB PRN PRN Hypoglycemia Protocol Dextrose 1,000 mls @ 50 mls/hr 12/03/24 12:25 Dextrose 10% IV CONT .Q20H PRN if PN is interrupted Amino Acids/Electrolytes/Dextrose 1,000 mls @ 80 mls/hr 12/03/24 15:00 12/08/24 18:44 Clinimix E 4.25%/5% Solution IV CONT 80 mls/hr .[id number] [facility] Administration Protocol Fat Emulsion Intravenous 250 mls @ 20.833 mls/hr 12/05/24 09:00 12/08/24 18:44 Lipids 20% IVPB 20.83 mls/hr Q24H [facility] Administration Sodium Chloride 500 mls @ 30 mls/hr 12/08/24 14:40 12/08/24 18:03 Normal Saline Iv IV CONT Infused .[id number] [facility] Infusion Insulin Aspart 2 - 5 units 12/01/24 00:00 12/09/24 03:00 Insulin Aspart (*Bkc) 100 Units/Ml SUB-Q Not Given Q6HR [facility] Protocol Naloxone HCl 0.1 mg 11/29/24 17:35 Naloxone Hcl 0.4 Mg/Ml Vial IV PUSH Q2M PRN Opiate Reversal Ondansetron HCl 4 mg 11/26/24 14:10 12/06/24 08:44 Ondansetron Inj 4 Mg/2 Ml Vial IV PUSH 4 mg Q4H PRN Administration Nausea Oxycodone/Acetaminophen 0.5 tablet 11/29/24 17:35 Oxycodone/Acetaminophen (*Crx) 5-325 Mg Tablet PO Q4H PRN Pain Rated 4-6 Pantoprazole Sodium 40 mg 12/02/24 12:00 12/09/24 08:29 Pantoprazole 40 Mg Tablet PO Not Given QAM [facility] Polyethylene Glycol 17 gm 11/30/24 09:00 11/30/24 08:29 Polyethylene Glycol 3350 17 Gm Powd.Pack PO 17 gm QAM [facility] Administration Senna/Docusate Sodium 2 tab 11/29/24 21:00 11/29/24 20:29 Senna/Docusate Sodium Tablet PO 2 tab HS [facility] Administration Vancomycin HCl 1 each 11/26/24 13:16 Vancomycin For Hemodialysis IVPB PRN PRN Vancomycin Protocol Radiology Results: ITS Impressions Foot X-Ray 11/26/24 12:58 Impression: 1: Moderate soft tissue swelling of the second digit. The distal phalanx not well visualized. Cannot exclude osteomyelitis. 2: Extra-articular fracture left fifth proximal phalanx. Duplex Scan Lower Extremity Artery 11/26/24 13:53 IMPRESSION: 1. No evident hemodynamically significant stenosis either by follow-up elevation of peak systolic velocities or by direct visualization grayscale imaging with brisk systolic upstrokes arteries of the bilateral lower limbs. Head CT 11/30/24 12:22 IMPRESSION: 1. . 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 No acute intracranial process. 2. Age-related changes including mild diffuse volume loss and moderate scattered white matter hypoattenuation consistent with chronic small vessel ischemic disease. Chest X-Ray 11/30/24 12:37 IMPRESSION: 1. Opacities in the right mid and lower lung zones which could represent atelectasis, aspiration and/or pneumonia. 2. Small right pleural effusion. Foot MRI 12/05/24 13:43 IMPRESSION: Status post transmetatarsal amputation of the second digit. 2.4 x 1.8 x 3.3 cm peripherally enhancing fluid collection at the second interspace at the level the proximal metatarsal shafts is compatible with abscess. Diffuse myositis of the plantar musculature of the foot. No evidence for osteomyelitis or fracture. Susceptibility artifact at the operative bed and dorsal soft tissues at the second digit region could reflect artifact and/or open soft tissue wound. Correlate with physical exam. Modified Barium Swallow 12/07/24 09:32 IMPRESSION: Pharyngeal dysphagia with laryngeal penetration and aspiration. Please correlate with speech pathologist findings and specific feeding recommendations. Brain MRI 12/09/24 14:19 IMPRESSION: 1. Small focus of restricted diffusion at the dependent occipital horn of the left lateral ventricle, potentially additional tiny focus similar position on the right. Unclear where this is periventricular or intraventricular, the former consistent with acute infarction in the latter resulting concern for echogenic ventriculitis. Correlate clinically for signs/symptoms of infection. Findings were discussed with Lissette Shepard, the nurse caring for the patient, at 2:42 PM. 2. 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 3. Scattered periventricular and deep white matter predominant T2 hyperintensity consistent with chronic small vessel ischemic disease. There is also linear pattern of increased T2 signal extending transversely across the abdelrahman which could represent additional sequela of chronic small vessel ischemic disease although dissipation also suggests possibility of selected degeneration of the transverse pontine cerebellar tracks which can be seen in the setting of multiple system atrophy or spinocerebellar ataxia. Labs Labs: Laboratory Results - last 24 hr 12/08/24 12/09/24 12/09/24 18:12 00:14 06:09 WBC 11.3 H RBC 3.04 L Hgb 8.8 L Hct 28.7 L MCV 94.4 MCH 28.9 MCHC 30.7 L RDW 15.0 H Plt Count 243 MPV 10.4 Immature Gran % (Auto) 1.7 H Neut % (Auto) 74.8 H Lymph % (Auto) 12.3 L [place] % (Auto) 8.2 Eos % (Auto) 2.1 Baso % (Auto) 0.9 Lymph # (Auto) 1.40 [place] # (Auto) 0.9 H Eos # (Auto) 0.2 Baso # (Auto) 0.1 Abs Immat Gran (auto) 0.19 H Absolute Neuts (auto) 8.5 H Absolute Nucleated RBC 0.000 Nucleated RBC % 0.0 Sodium 137 Potassium 4.4 Chloride 102 Carbon Dioxide 25 Anion Gap 10 BUN 41 H D Creatinine 4.94 H Estim Creat Clear Calc 16 Estimated GFR 12 L Glucose 112 H POC Capillary Glucose 98 105 Calcium 7.7 L Phosphorus 6.7 H Magnesium 2.2 Albumin 2.9 L 12/09/24 11:59 WBC RBC Hgb Hct MCV MCH MCHC RDW Plt Count MPV Immature Gran % (Auto) Neut % (Auto) Lymph % (Auto) [place] % (Auto) Eos % (Auto) Baso % (Auto) Lymph # (Auto) [place] # (Auto) Eos # (Auto) Baso # (Auto) Abs Immat Gran (auto) Absolute Neuts (auto) Absolute Nucleated RBC Nucleated RBC % Sodium Potassium Chloride Carbon Dioxide Anion Gap BUN Creatinine Estim Creat Clear Calc Estimated GFR Glucose POC Capillary Glucose 103 Calcium Phosphorus Magnesium Albumin
[2024-12-09 16:55] LABS: Glucose Point of Care 81 mg/dl (65-105)
[2024-12-09] MEDS: CEFEPIME 1 GM/NS 50 ML 1 GM/50 ML BAG IVPB (17:26)
[2024-12-09] MEDS: ASPIRIN 300 MG SUPPOSITORY RECTAL (17:27)
--- NOTE | 2024-12-09 18:14 | P.CONNS_ITS ---
Assessment and Plan Assessment and plan (1) Dysphagia: Code(s): R13.10 - Dysphagia, unspecified Status: Acute (2) T2 hyperintense foci present in abdelrahman on magnetic resonance imaging: Code(s): R90.89 - Other abnormal findings on diagnostic imaging of central nervous system Status: Acute Plan Mr. Yun is a 59-year-old male admitted to the hospital with a necrotic toe on his left foot as well as bacteremia for which he has required 2 surgical interventions for debridement. He has had progressive dysphagia and dysarthria over the course of his stay as well as generalized weakness per nursing report. On exam, he is dysarthric, but I do not detect any focal weakness on his physical exam. He had an MRI brain completed earlier today showing a tiny area of diffusion restriction within the dependent portion of the left lateral ventricle that was concerning for a possible infection. There is also T2 hyperintensity present within the abdelrahman and a possible area of enhancement in the right cerebellum, although this may be artifactual. He has other areas of periventricular and right frontal T2 hyperintensity which appear stable compared to a CT scan done last summer. In my opinion, ventriculitis would be extremely unlikely given that he has not had any recent cranial surgery, penetrating head wound, placement of an external ventricular drain, or meningitis. He does not have any symptoms concerning for meningitis. However, he has had a prolonged course of bacteremia, so it would not be unreasonable to pursue a lumbar puncture for infection workup. I would also suggest a follow-up MRI next week to ensure that there is no progression of this intraventricular abnormality. My bigger concern is the signal abnormality within the abdelrahman, particularly given his apparent progressive dysphagia and dysarthria. I am not entirely sure what to make this finding. His sodiums have been stable over the course of his hospitalization. Radiology speculates that this could be sequela of chronic small vessel disease, but my impression is that his dysphasia and dysarthria have been relatively recent in onset. I would also consider Neurology consultation who could also guide other CSF markers that might be useful in this case. Plan: -Recommend lumbar puncture -Recommend Neurology evaluation -Recommend follow up MRI brain without/with contrast next week to follow the intraventricular abnormality Consult date: 12/09/24 HPI: Savage Yun is a 59 year old male with extensive medical history including uncontrolled type 2 diabetes, end-stage renal disease on dialysis, heart failure, previous stroke, and coronary artery disease who has been hospitalized since November 26 with a gangrenous toe on his left foot and bacteremia. He has had 2 surgeries on his foot with Dr. Goodson to treat the infection, most recently yesterday. Over the course of his hospitalization, he has had progressive issues with dysphagia as well as dysarthria. The patient is unable to give me much information but seems to indicate that these symptoms have been present since admission. An MRI brain was obtained today because of these symptoms, and there is a question about the possibility of ventriculitis for which I was consulted. On discussion with the patient's nurses, he has demonstrated progressive dysarthria over the last 2 weeks as well as progressive weakness. The patient's family had reported to them issues with coughing while eating for the last 3 months. He has failed multiple swallow studies and is scheduled to have a PEG tube placed tomorrow. He denies any headaches, photophobia, weakness, paresthesias, neck pain, back pain, or other concerns. He states that he is unaware of his swallowing difficulty. He has never had surgical intervention on his brain including an EVD. Review of Systems 2 Review of Systems: All systems reviewed & are unremarkable except as noted in HPI and below PMFSH Past Medical History Medical History Aortic stenosis mod to severe Tobacco abuse Elevated d-dimer Heart failure with preserved ejection fraction Echo in November 2022 showed normal LV size and function with an EF of 50 to 55%, mildly increased left ventricular wall thickness, and grade 2 diastolic dysfunction. 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 Cerebrovascular accident (02/2019) Anxiety Hyperlipidemia Hypertension Surgical History Surgical History History of cardiac catheterization (2019) History of colonoscopy with polypectomy Family History Family History Mother Carcinoma of colon Father Family history of diabetes mellitus in first degree relative Grandparent Diabetes mellitus Social History Social History (Reviewed 11/30/24 @ 09:30 by KAREN Stafford Social History: Surrogate medical decision maker: Raina Yun, sibling. Code status: Do not resuscitate. Smoking packs per day: 0.5 Smoking cigarettes per day: 10.0 Years smoked: 40 Smoking pack-years: 20.00 Smoking status: Current every day smoker Alcohol intake: never Substance use: never Substance use type: does not use Do You Feel Safe in your Home?: Yes Lack of Transportation: YES Lack of Food: Never True Current Housing: I Have Housing Concerned About Future Housing: No Difficulty Paying Gas/Electric Bills: No Difficulty Paying for Meds: No Currently Unemployed: No Education: High School Diploma/GED Difficulty w/ Childcare or Family Care: No Living arrangements: with family Additional living arrangements comments: Lives in [place]. Has 4 children. Retired [employer]. Additional occupation/education comments: [employer]. Spiritual care concerns: No Meds Home Medications and Allergies Home Medications ?Medication ?Instructions ?Recorded ?Confirmed ?Type amlodipine 10 mg tablet 10 mg PO DAILY 01/25/22 11/26/24 History atorvastatin 80 mg tablet 80 mg PO DAILY 01/25/22 11/26/24 History carvedilol 25 mg tablet 25 mg PO BID 01/25/22 11/26/24 History clopidogrel 75 mg tablet 75 mg PO DAILY 01/25/22 11/26/24 History hydralazine 50 mg tablet 50 mg PO TID 08/11/23 11/26/24 History Allergies Allergy/AdvReac Type Severity Reaction Status Date / Time tree nut Allergy Intermediate Itching Verified 11/29/24 15:34 Penicillins Allergy Unknown Unknown Verified 11/29/24 15:34 Vital Signs Vital Signs - 24 hr 12/08/24 20:00 12/08/24 20:00 12/08/24 21:50 Temperature 97.8 F Pulse Rate 69 66 Respiratory Rate 18 Blood Pressure 163/79 H Pulse Oximetry 97 Oxygen Delivery Room Air 12/09/24 00:00 12/09/24 03:08 12/09/24 06:19 Temperature 98 F Pulse Rate 69 66 63 Respiratory Rate 16 Blood Pressure 148/72 H Pulse Oximetry 98 Oxygen Delivery 12/09/24 08:00 12/09/24 08:00 12/09/24 12:00 Temperature Pulse Rate 66 68 Respiratory Rate Blood Pressure Pulse Oximetry Oxygen Delivery Room Air 12/09/24 15:00 Temperature 98.2 F Pulse Rate 69 Respiratory Rate 12 Blood Pressure 156/72 H Pulse Oximetry 97 Oxygen Delivery Exam 2 Narrative: Dysarthric No pronator drift Answers questions appropriately AO to person, place, date Unless otherwise stated above, the patient's physical exam is as follows: General: -Well developed and well nourished. No a cute distress. Cooperative with exam. Mental status: -Awake and oriented to person, place, an d time. Affect is normal. -Fund of knowledge appropriate -Recent and remote memory are intact -Attention span and concentration appear normal -Language function is normal -There is no evidence of aphasia in conv ersational speech. Cranial nerves: -CN II: Visual beckford full to bedside co nfrontation -CN III, IV, : Pupils equal, round, an d reactive to light; extraocular movements, no ptosis, no nystagmus -CN V: Facial sensation intact in V1 thr ough V3 distributions -CN VII: Face symmetric -CN VIII: Hearing intact to conversation al speech -CN IX, X: Palate elevates symmetrically ; normal phonation -CN XI: Symmetric full strength of love ocleidomastoid and trapezius muscles -CN XII: Tongue protrudes midline Motor: -Muscle tone normal without spasticity o f flaccidity. No atrophy. No fasciculations. -No pronator drift -Right upper extremity: deltoid 5/5, bic eps 5/5, triceps 5/5, wrist extensors 5/5, wrist flexors 5/5, intrinsics 5/5 -Left upper extremity: deltoid 5/5, susana ps 5/5, triceps 5/5, wrist extensors 5/5, wrist flexors 5/5, intrinsics 5/5 -Right lower extremity: iliopsoas 5/5, q uadriceps 5/5, hamstrings 5/5, tibialis anterior 5/5, gastroc-soleus 5/5, EHL 5/5 -Left lower extremity: iliopsoas 5/5, qu adriceps 5/5, hamstrings 5/5, tibialis anterior 5/5, gastroc-soleus 5/5, EHL 5/5 Sensory: -Intact to light touch throughout -Normal proprioception throughout Reflexes: -1-2+ DTR's throughout -No Gaona's, clonus, or Babinski bilat erally Coordination: -Intact to RTN -Intact to HTS -No tremors Gait: -Stable -Station normal Results Labs 12/09/24 06:09 12/09/24 06:09 Labs: Short CBC 12/09/24 Range/Units 06:09 WBC 11.3 H (4.5-10.0) K/mm3 Hgb 8.8 L (14.0-18.0) g/dL Hct 28.7 L (42.0-52.0) % Plt Count 243 (150-375) k/mm3 BMP 12/09/24 06:09 Sodium 137 Potassium 4.4 Chloride 102 Carbon Dioxide 25 BUN 41 H D Creatinine 4.94 H Glucose 112 H Calcium 7.7 L Liver Function 12/09/24 Range/Units 06:09 Albumin 2.9 L (3.5-5.1) g/dL Imaging My impression: I personally viewed the MRI brain which shows a tiny focus of diffusion restriction within the dependent portion of the left occipital lateral ventricle without corresponding enhancement. There is no ependymal enhancement frontal ventricles. There is also T2 FLAIR hyperintensity noted within the abdelrahman extending into the superior medulla. There is an area of enhancement in the right anterior cerebellum, although this may be artifactual. There is periventricular T2 hyperintensity bilaterally as well as hyperintensity involving the right frontal region which appears stable compared to imaging from last December
[2024-12-09] MEDS: COLLAGENASE OINT 30 GM TUBE 1 APPLIC TOPICAL ×2 (21:06→21:11)
[2024-12-10] VITALS (23 sets, daily range): BP systolic 110–191; BP diastolic 55–89; PULSE 66–124; RESP 18–126; TEMP 36.3–37; O2SAT 98–100
[2024-12-10] MEDS: metroNIDAZOLE 500 MG/ISO 100ML 500 MG/100 ML BAG 100 MG IVPB ×2 (05:23→18:34)
[2024-12-10] MEDS: hydrALAZINE HCL 20 MG/ML VIAL 10 MG IV PUSH ×3 (05:23→21:14)
[2024-12-10 05:35] LABS: Basophils Absolute Auto 0.1 K/mm3 (0.0-0.1); Basophils Percent Auto 0.7 % (0.2-1.2); Eosinophils Absolute Auto 0.2 K/mm3 (0-0.3); Eosinophils Percent Auto 2.4 % (0-4.4); Hematocrit 29.2 % (42.0-52.0); Immature Granulocyte Absolute 0.12 K/mm3 (0.00-0.031); Immature Granulocyte Percent A 1.2 % (0-0.5); Lymphocytes Absolute Auto 0.89 K/mm3 (0.9-3.2); Mean Corpuscular HGB Conc 30.8 g/dl (32-36); Mean Corpuscular Hemoglobin 28.8 pg (26-34); Mean Corpuscular Volume 93.3 fl (80-100); Mean Platelet Volume 10.3 fl (7.4-10.4); Monocytes Absolute Auto 0.8 K/mm3 (0.1-0.6); Monocytes Percent Auto 7.9 % (2.6-8.5); Neutrophils Absolute Auto 7.8 K/mm3 (1.3-6.7); Neutrophils Percent Auto 78.8 % (45.5-73.1); Platelet Count Result 254 k/mm3 (150-375); Red Blood Count 3.13 M/mm3 (4.6-6.20); Red Cell Distribution Width 15.4 % (11.5-14.5); White Blood Count 9.9 K/mm3 (4.5-10.0)
[2024-12-10 05:45] LABS: Triglycerides 138 mg/dL (<150)
[2024-12-10 05:50] LABS: Albumin Level 3.2 g/dL (3.5-5.1); Anion Gap 14 mmol/L (4-12); Blood Urea Nitrogen 50 mg/dL (9-20); Carbon Dioxide 21 mmol/L (22-30); Chloride 103 mmol/L (98-107); Estimated CRCL calculation 12 ml/min; Estimated Glomerular Filt Rate 9; Glucose 74 mg/dL (65-110); Magnesium 2.2 mg/dL (1.6-2.3); Phosphorus 7.6 mg/dL (2.5-4.5); Potassium 4.6 mmol/L (3.4-5.0); Sodium 138 mmol/L (137-145); Vancomycin Random 20.9 ug/mL (10-20)
[2024-12-10 06:51] LABS: Glucose Point of Care 80 mg/dl (65-105)
[2024-12-10] MEDS: SODIUM CHLORIDE 0.9% IV 500 ML 150 ML IV CONT (08:04)
--- NOTE | 2024-12-10 08:11 | P.PNAN_ITS ---
Anes - Initial Pre Proc Eval Procedure: Operation Date: 11/29/24 16:00 Proposed Procedures p Left Second Toe Transmetatarsal Amputation - Kaveh Goodson MD Operation Date: 12/01/24 13:00 Proposed Procedures p Trans Esophageal Echo - Brian Michelle MD Operation Date: 12/08/24 15:00 Proposed Procedures p Debridement Left Foot Wound - Kaveh Goodson MD Operation Date: 12/10/24 15:30 Proposed Procedures p Percutaneous Endoscopic Gastrostomy - Victor M Mehta MD Date/Time: 12/10/24 08:11 Surgeon: Corby Aly MD Pre Op Diagnosis: Toe Gangrene/Diabetic Foot Wound Patient Data Age: 59 Gender: M Height: 1.8 m Weight: 92.3 kg Last Vital Signs Temp 36.5 C 12/10/24 05:58 Pulse 72 12/10/24 05:58 Resp 18 12/10/24 05:58 BP 150/66 H 12/10/24 05:58 Pulse Ox 98 12/10/24 05:58 O2 Del Method Room Air 12/09/24 20:00 O2 Flow Rate 10 12/08/24 17:05 Allergies Allergy/AdvReac Type Severity Reaction Status Date / Time tree nut Allergy Intermediate Itching Verified 12/10/24 08:10 Penicillins Allergy Unknown Unknown Verified 12/10/24 08:10 Home Medications ?Medication ?Instructions ?Recorded ?Confirmed ?Type amlodipine 10 mg tablet 10 mg PO DAILY 01/25/22 11/26/24 History atorvastatin 80 mg tablet 80 mg PO DAILY 01/25/22 11/26/24 History carvedilol 25 mg tablet 25 mg PO BID 01/25/22 11/26/24 History clopidogrel 75 mg tablet 75 mg PO DAILY 01/25/22 11/26/24 History hydralazine 50 mg tablet 50 mg PO TID 08/11/23 11/26/24 History Laboratory Tests 12/09/24 12/09/24 12/10/24 11:59 16:50 05:27 WBC 9.9 K/mm3 (4.5-10.0) RBC 3.13 L M/mm3 (4.6-6.20) Hgb 9.0 L g/dL (14.0-18.0) Hct 29.2 L % (42.0-52.0) MCV 93.3 fl (80-100) MCH 28.8 pg (26-34) MCHC 30.8 L g/dl (32-36) RDW 15.4 H % (11.5-14.5) Plt Count 254 k/mm3 (150-375) MPV 10.3 fl (7.4-10.4) Immature Gran % (Auto) 1.2 H % (0-0.5) Neut % (Auto) 78.8 H % (45.5-73.1) Lymph % (Auto) 9.0 L % (18.3-44.2) [place] % (Auto) 7.9 % (2.6-8.5) Eos % (Auto) 2.4 % (0-4.4) Baso % (Auto) 0.7 % (0.2-1.2) Lymph # (Auto) 0.89 L K/mm3 (0.9-3.2) [place] # (Auto) 0.8 H K/mm3 (0.1-0.6) Eos # (Auto) 0.2 K/mm3 (0-0.3) Baso # (Auto) 0.1 K/mm3 (0.0-0.1) Abs Immat Gran (auto) 0.12 H K/mm3 (0.00-0.031) Absolute Neuts (auto) 7.8 H K/mm3 (1.3-6.7) Absolute Nucleated RBC 0.000 K/mm3 (0.0-0.012) Nucleated RBC % 0.0 % (0.0-0.2) Sodium 138 mmol/L (137-145) Potassium 4.6 mmol/L (3.4-5.0) Chloride 103 mmol/L (98-107) Carbon Dioxide 21 L mmol/L (22-30) Anion Gap 14 H mmol/L (4-12) BUN 50 H mg/dL (9-20) Creatinine 6.67 H mg/dL (0.7-1.3) Estim Creat Clear Calc 12 ml/min Estimated GFR 9 L (59 - ) Glucose 74 mg/dL (65-110) POC Capillary Glucose 103 mg/dl 81 mg/dl (65-105) (65-105) Calcium 8.0 L mg/dL (8.4-10.2) Phosphorus 7.6 H mg/dL (2.5-4.5) Magnesium 2.2 mg/dL (1.6-2.3) Albumin 3.2 L g/dL (3.5-5.1) Triglycerides 138 mg/dL (<150) Random Vancomycin 20.9 H ug/mL (10-20) 12/10/24 06:11 WBC RBC Hgb Hct MCV MCH MCHC RDW Plt Count MPV Immature Gran % (Auto) Neut % (Auto) Lymph % (Auto) [place] % (Auto) Eos % (Auto) Baso % (Auto) Lymph # (Auto) [place] # (Auto) Eos # (Auto) Baso # (Auto) Abs Immat Gran (auto) Absolute Neuts (auto) Absolute Nucleated RBC Nucleated RBC % Sodium Potassium Chloride Carbon Dioxide Anion Gap BUN Creatinine Estim Creat Clear Calc Estimated GFR Glucose POC Capillary Glucose 80 mg/dl (65-105) Calcium Phosphorus Magnesium Albumin Triglycerides Random Vancomycin Patient hx anesthesia problems: none Family hx anesthesia problems: none Results Review: All pre-operative results and documents have been reviewed as part of the pre- operative evaluation. [facility] Past Medical History Medical History Aortic stenosis mod to severe Tobacco abuse Elevated d-dimer Heart failure with preserved ejection fraction Echo in November 2022 showed normal LV size and function with an EF of 50 to 55%, mildly increased left ventricular wall thickness, and grade 2 diastolic dysfunction. 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 Cerebrovascular accident (02/2019) Anxiety Hyperlipidemia Hypertension Surgical History Surgical History History of cardiac catheterization (2019) History of colonoscopy with polypectomy Family History Family History Mother Carcinoma of colon Father Family history of diabetes mellitus in first degree relative Grandparent Diabetes mellitus Social History Social History Social History: Surrogate medical decision maker: Raina Yun, sibling. Code status: Do not resuscitate. Smoking packs per day: 0.5 Smoking cigarettes per day: 10.0 Years smoked: 40 Smoking pack-years: 20.00 Smoking status: Current every day smoker Alcohol intake: never Substance use: never Substance use type: does not use Do You Feel Safe in your Home?: Yes Lack of Transportation: YES Lack of Food: Never True Current Housing: I Have Housing Concerned About Future Housing: No Difficulty Paying Gas/Electric Bills: No Difficulty Paying for Meds: No Currently Unemployed: No Education: High School Diploma/GED Difficulty w/ Childcare or Family Care: No Living arrangements: with family Additional living arrangements comments: Lives in [place]. Has 4 children. [employer]. Additional occupation/education comments: [employer]. Spiritual care concerns: No Anes - Eval Final PreProcedure Day of Procedure 12/10/24 08:11 Patient weight: overweight Heart: regular rate and rhythm Lungs: decreased breath sounds Airway: Mallampati scale class II Neurological: alert and oriented Last oral intake: >/= 8 hours ASA classification: IV Emergent: no Anesthetic plan: proceed Anesthesia type and monitoring: general GIVS and standard monitoring Results Review: All pre-operative results and documents have been reviewed as part of the pre- operative evaluation. Informed Consent: The patient's anesthetic plan and its attendant risks and benefits were discussed with the patient/family/POA. Questions were solicited and answers provided to the satisfaction of the patient/family/POA.
[2024-12-10 08:15] LABS: Glucose Point of Care 63 mg/dl (65-105)
[2024-12-10] MEDS: DEXTROSE 50% 25 GM/50 ML SYRINGE IV PUSH (08:18)
--- NOTE | 2024-12-10 08:25 | P.PNGS_ITS ---
Progress Note: A&P Assessment and Plan (1) Necrotizing soft tissue infection: Code(s): M79.89 - Other specified soft tissue disorders Status: Acute Assessment and Plan: Appear to have eradicated the necrotizing infection after debridement 2 days ago. Continue dressing changes and IV antibiotics. (2) MRSA bacteremia: Code(s): R78.81 - Bacteremia; B95.62 - Methicillin resistant Staphylococcus aureus infection as the cause of diseases classified elsewhere Status: Acute Assessment and Plan: As above (3) Diabetic infection of left foot: Code(s): E11.628 - Type 2 diabetes mellitus with other skin complications; L08.9 - Local infection of the skin and subcutaneous tissue, unspecified Status: Acute Assessment and Plan: As above (4) Peripheral vascular disease in diabetes mellitus: Code(s): E11.51 - Type 2 diabetes mellitus with diabetic peripheral angiopathy without gangrene Status: Chronic Assessment and Plan: Vascular insufficiency apparent by pulsed Doppler and poor healing of left foot amputation wound. Patient to have CT angiogram aorta with distal runoff. Subjective Subjective Date/Time Seen: 12/10/24 08:25 Post Op day: 1 Patient reports: no new complaints (No changes in mental status either) and afebrile Exam Extrem: Left lower extremity: foot (Except for the most distal aspect, wound looks better, pink, healing) Details: tenderness; no ecchymosis and no crepitus Objective Data Vital Signs Vital Signs: Vital Signs - 24 hr 12/09/24 12:00 12/09/24 15:00 12/09/24 20:00 Temperature 36.8 C Pulse Rate 68 69 Respiratory Rate 12 Blood Pressure 156/72 H Pulse Oximetry 97 Oxygen Delivery Room Air 12/09/24 22:08 12/10/24 05:58 12/10/24 08:13 Temperature 36.6 C 36.5 C 36.9 C Pulse Rate 70 72 71 Respiratory Rate 18 18 19 Blood Pressure 152/72 H 150/66 H 152/75 H Pulse Oximetry 96 98 98 Oxygen Delivery Intake/Output Intake/Output: Intake & Output 12/07/24 12/08/24 12/09/24 12/10/24 23:59 23:59 23:59 23:59 Intake Total 2850 1350 300 Output Total 50 2150 Balance 2800 -800 300 Meds/Results Medications: Active Medications Generic Name Dose Route Start Last Admin Trade Name Freq PRN Reason Stop Dose Admin Amlodipine Besylate 10 mg 11/27/24 09:00 11/30/24 08:30 Amlodipine Besylate 10 Mg Tablet PO 10 mg DAILY LILIAN Administration Aspirin 300 mg 12/09/24 15:40 12/09/24 17:27 Aspirin 300 Mg Suppository RECTAL 300 mg DAILY LILIAN Administration Atorvastatin Calcium 80 mg 11/27/24 09:00 12/01/24 11:36 Atorvastatin 40 Mg Tablet PO Not Given DAILY [facility] Carvedilol 25 mg 11/26/24 21:00 11/30/24 08:29 Carvedilol 25 Mg Tablet PO 25 mg Q12HR LILIAN Administration Clopidogrel Bisulfate 75 mg 11/27/24 09:00 12/06/24 09:32 Clopidogrel Bisulfate 75 Mg Tablet PO Not Given DAILY [facility] Collagenase 1 applic 12/03/24 21:00 12/09/24 21:11 Collagenase Oint 30 Gm Tube TOPICAL 1 applic Q12HR LILIAN Administration Dextrose 12.5 gm 11/30/24 16:34 Dextrose 50% 25 Gm/50 Ml Syringe IV PUSH PRN PRN Hypoglycemia Protocol Dextrose 12.5 gm 12/10/24 08:17 12/10/24 08:18 Dextrose 50% 25 Gm/50 Ml Syringe IV PUSH 12/10/24 08:18 25 gm ONCE ONE Administration Docusate Sodium 100 mg 11/26/24 17:00 11/30/24 17:21 Docusate Sodium 100 Mg Capsule PO Not Given BID LILIAN Glucagon 1 mg 11/30/24 16:34 Glucagon For Inj 1 Mg Vial IM PRN PRN Hypoglycemia Protocol Glucose 15 gm 11/30/24 16:34 Glucose Oral Gel 15 Gm Of Glucse In 37.5 Gm Tube PO PRN PRN Hypoglycemia Protocol Hydralazine HCl 50 mg 11/26/24 17:00 11/30/24 12:49 Hydralazine Hcl 50 Mg Tablet PO Not Given TID [facility] Hydralazine HCl 10 mg 12/10/24 06:00 12/10/24 05:23 Hydralazine Hcl 20 Mg/Ml Vial IV PUSH 10 mg Q8HR LILIAN Administration Albumin Human 50 mls @ 999 mls/hr 11/27/24 06:51 Albutein IVPB 12/27/24 06:50 Q10M PRN HYPOTENSION Ibuprofen 800 mg in 200 mls @ 400 mls/hr 11/29/24 17:35 12/08/24 20:37 Caldolor 800 Mg/200 Ml IVPB 400 mls/hr Q6H PRN Administration Breakthrough Pain Rated 1-3 or NPO Cefepime HCl 1 gm in 50 mls @ 100 mls/hr 11/30/24 18:00 12/09/24 17:26 Maxipime 1 Gm/Ns 50 Ml IVPB 100 mls/hr DAILY@1800 LILIAN Administration Metronidazole 500 mg in 100 mls @ 100 mls/hr 11/30/24 14:00 12/10/24 05:23 Flagyl 500 Mg/Iso Soln 100 Ml IVPB 100 mls/hr Q8H LILIAN Administration Dextrose 1,000 mls @ 100 mls/hr 11/30/24 16:34 Dextrose 5% 1,000 Ml IVPB PRN PRN Hypoglycemia Protocol Dextrose 1,000 mls @ 50 mls/hr 12/03/24 12:25 Dextrose 10% IV CONT .Q20H PRN if PN is interrupted Sodium Chloride 500 mls @ 30 mls/hr 12/08/24 14:40 12/10/24 08:04 Normal Saline Iv IV CONT 150 mls/hr .[id number] LILIAN Administration Vancomycin HCl 500 mg in 100 mls @ 100 mls/hr 12/10/24 20:00 Vancomycin 500 Mg/Ns 100 Ml IVPB 12/10/24 20:59 ONCE ONE Sodium Chloride 500 mls @ 10 mls/hr 12/10/24 07:30 Normal Saline Iv IV CONT .Q24H [facility] Insulin Aspart 2 - 5 units 12/01/24 00:00 12/10/24 04:07 Insulin Aspart (*Bkc) 100 Units/Ml SUB-Q Not Given Q6HR [facility] Protocol Miscellaneous Information 1 each 12/10/24 00:01 Please Renew Cefepime_. Per [employer] Procedure, It Will Discontinue If Not Renewed XX 01/09/25 00:00 CLARIFY LILIAN Naloxone HCl 0.1 mg 11/29/24 17:35 Naloxone Hcl 0.4 Mg/Ml Vial IV PUSH Q2M PRN Opiate Reversal Ondansetron HCl 4 mg 11/26/24 14:10 12/06/24 08:44 Ondansetron Inj 4 Mg/2 Ml Vial IV PUSH 4 mg Q4H PRN Administration Nausea Oxycodone/Acetaminophen 0.5 tablet 11/29/24 17:35 Oxycodone/Acetaminophen (*Crx) 5-325 Mg Tablet PO Q4H PRN Pain Rated 4-6 Pantoprazole Sodium 40 mg 12/02/24 12:00 12/09/24 08:29 Pantoprazole 40 Mg Tablet PO Not Given QAM LILIAN Polyethylene Glycol 17 gm 11/30/24 09:00 11/30/24 08:29 Polyethylene Glycol 3350 17 Gm Powd.Pack PO 17 gm QAM LILIAN Administration Senna/Docusate Sodium 2 tab 11/29/24 21:00 11/29/24 20:29 Senna/Docusate Sodium Tablet PO 2 tab HS LILIAN Administration Vancomycin HCl 1 each 11/26/24 13:16 Vancomycin For Hemodialysis IVPB PRN PRN Vancomycin Protocol Radiology Results: ITS Impressions Foot X-Ray 11/26/24 12:58 Impression: 1: Moderate soft tissue swelling of the second digit. The distal phalanx not well visualized. Cannot exclude osteomyelitis. 2: Extra-articular fracture left fifth proximal phalanx. Duplex Scan Lower Extremity Artery 11/26/24 13:53 IMPRESSION: 1. No evident hemodynamically significant stenosis either by follow-up elevation of peak systolic velocities or by direct visualization grayscale imaging with brisk systolic upstrokes arteries of the bilateral lower limbs. Head CT 11/30/24 12:22 IMPRESSION: 1. . 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 No acute intracranial process. 2. Age-related changes including mild diffuse volume loss and moderate scattered white matter hypoattenuation consistent with chronic small vessel ischemic disease. Chest X-Ray 11/30/24 12:37 IMPRESSION: 1. Opacities in the right mid and lower lung zones which could represent atelectasis, aspiration and/or pneumonia. 2. Small right pleural effusion. Foot MRI 12/05/24 13:43 IMPRESSION: Status post transmetatarsal amputation of the second digit. 2.4 x 1.8 x 3.3 cm peripherally enhancing fluid collection at the second interspace at the level the proximal metatarsal shafts is compatible with abscess. Diffuse myositis of the plantar musculature of the foot. No evidence for osteomyelitis or fracture. Susceptibility artifact at the operative bed and dorsal soft tissues at the second digit region could reflect artifact and/or open soft tissue wound. Correlate with physical exam. Modified Barium Swallow 12/07/24 09:32 IMPRESSION: Pharyngeal dysphagia with laryngeal penetration and aspiration. Please correlate with speech pathologist findings and specific feeding recommendations. Brain MRI 12/09/24 14:19 IMPRESSION: 1. Small focus of restricted diffusion at the dependent occipital horn of the left lateral ventricle, potentially additional tiny focus similar position on the right. Unclear where this is periventricular or intraventricular, the former consistent with acute infarction in the latter resulting concern for echogenic ventriculitis. Correlate clinically for signs/symptoms of infection. Findings were discussed with Lissette Shepard, the nurse caring for the patient, at 2:42 PM. 2. 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 3. Scattered periventricular and deep white matter predominant T2 hyperintensity consistent with chronic small vessel ischemic disease. There is also linear pattern of increased T2 signal extending transversely across the abdelrahman which could represent additional sequela of chronic small vessel ischemic disease although dissipation also suggests possibility of selected degeneration of the transverse pontine cerebellar tracks which can be seen in the setting of multiple system atrophy or spinocerebellar ataxia. Labs Labs: Laboratory Results - last 24 hr 12/09/24 12/09/24 12/10/24 11:59 16:50 05:27 WBC 9.9 RBC 3.13 L Hgb 9.0 L Hct 29.2 L MCV 93.3 MCH 28.8 MCHC 30.8 L RDW 15.4 H Plt Count 254 MPV 10.3 Immature Gran % (Auto) 1.2 H Neut % (Auto) 78.8 H Lymph % (Auto) 9.0 L [place] % (Auto) 7.9 Eos % (Auto) 2.4 Baso % (Auto) 0.7 Lymph # (Auto) 0.89 L [place] # (Auto) 0.8 H Eos # (Auto) 0.2 Baso # (Auto) 0.1 Abs Immat Gran (auto) 0.12 H Absolute Neuts (auto) 7.8 H Absolute Nucleated RBC 0.000 Nucleated RBC % 0.0 Sodium 138 Potassium 4.6 Chloride 103 Carbon Dioxide 21 L Anion Gap 14 H BUN 50 H Creatinine 6.67 H Estim Creat Clear Calc 12 Estimated GFR 9 L Glucose 74 POC Capillary Glucose 103 81 Calcium 8.0 L Phosphorus 7.6 H Magnesium 2.2 Albumin 3.2 L Triglycerides 138 Random Vancomycin 20.9 H 12/10/24 12/10/24 06:11 08:12 WBC RBC Hgb Hct MCV MCH MCHC RDW Plt Count MPV Immature Gran % (Auto) Neut % (Auto) Lymph % (Auto) [place] % (Auto) Eos % (Auto) Baso % (Auto) Lymph # (Auto) [place] # (Auto) Eos # (Auto) Baso # (Auto) Abs Immat Gran (auto) Absolute Neuts (auto) Absolute Nucleated RBC Nucleated RBC % Sodium Potassium Chloride Carbon Dioxide Anion Gap BUN Creatinine Estim Creat Clear Calc Estimated GFR Glucose POC Capillary Glucose 80 63 L Calcium Phosphorus Magnesium Albumin Triglycerides Random Vancomycin
--- NOTE | 2024-12-10 08:48 | WPDGIPROGNO ---
Progress Note: A&P Assessment and Plan (1) Dysphagia: Code(s): R13.10 - Dysphagia, unspecified Status: Acute Assessment and Plan: Please see endoscopy report. PEG placement was not feasible due to technical difficulties. Lack of an appropriate endoscopy window precluded the procedure. Surgery should evaluate the patient to consider surgically placed gastrostomy. Subjective Date/time seen: 12/10/24 08:48 Objective Data Vital Signs Vital Signs: Vital Signs - 24 hr 12/09/24 12:00 12/09/24 15:00 12/09/24 20:00 Temperature 98.2 F Pulse Rate 68 69 Respiratory Rate 12 Blood Pressure 156/72 H Pulse Oximetry 97 Oxygen Delivery Room Air 12/09/24 22:08 12/10/24 05:58 12/10/24 08:13 Temperature 98 F 97.7 F 98.4 F Pulse Rate 70 72 71 Respiratory Rate 18 18 19 Blood Pressure 152/72 H 150/66 H 152/75 H Pulse Oximetry 96 98 98 Oxygen Delivery Intake/Output Intake/Output: Intake & Output 12/07/24 12/08/24 12/09/24 12/10/24 23:59 23:59 23:59 23:59 Intake Total 2850 1350 300 0 Output Total 50 2150 Balance 2800 -800 300 0 Meds/Results Medications: Active Medications Generic Name Dose Route Start Last Admin Trade Name Freq PRN Reason Stop Dose Admin Amlodipine Besylate 10 mg 11/27/24 09:00 11/30/24 08:30 Amlodipine Besylate 10 Mg Tablet PO 10 mg DAILY LILIAN Administration Aspirin 300 mg 12/09/24 15:40 12/09/24 17:27 Aspirin 300 Mg Suppository RECTAL 300 mg DAILY LILIAN Administration Atorvastatin Calcium 80 mg 11/27/24 09:00 12/01/24 11:36 Atorvastatin 40 Mg Tablet PO Not Given DAILY LILIAN Carvedilol 25 mg 11/26/24 21:00 11/30/24 08:29 Carvedilol 25 Mg Tablet PO 25 mg Q12HR LILIAN Administration Clopidogrel Bisulfate 75 mg 11/27/24 09:00 12/06/24 09:32 Clopidogrel Bisulfate 75 Mg Tablet PO Not Given DAILY LILIAN Collagenase 1 applic 12/03/24 21:00 12/09/24 21:11 Collagenase Oint 30 Gm Tube TOPICAL 1 applic Q12HR LILIAN Administration Dextrose 12.5 gm 11/30/24 16:34 Dextrose 50% 25 Gm/50 Ml Syringe IV PUSH PRN PRN Hypoglycemia Protocol Docusate Sodium 100 mg 11/26/24 17:00 11/30/24 17:21 Docusate Sodium 100 Mg Capsule PO Not Given BID LILIAN Glucagon 1 mg 11/30/24 16:34 Glucagon For Inj 1 Mg Vial IM PRN PRN Hypoglycemia Protocol Glucose 15 gm 11/30/24 16:34 Glucose Oral Gel 15 Gm Of Glucse In 37.5 Gm Tube PO PRN PRN Hypoglycemia Protocol Hydralazine HCl 50 mg 11/26/24 17:00 11/30/24 12:49 Hydralazine Hcl 50 Mg Tablet PO Not Given TID LILIAN Hydralazine HCl 10 mg 12/10/24 06:00 12/10/24 05:23 Hydralazine Hcl 20 Mg/Ml Vial IV PUSH 10 mg Q8HR LILIAN Administration Albumin Human 50 mls @ 999 mls/hr 11/27/24 06:51 Albutein IVPB 12/27/24 06:50 Q10M PRN HYPOTENSION Ibuprofen 800 mg in 200 mls @ 400 mls/hr 11/29/24 17:35 12/08/24 20:37 Caldolor 800 Mg/200 Ml IVPB 400 mls/hr Q6H PRN Administration Breakthrough Pain Rated 1-3 or NPO Cefepime HCl 1 gm in 50 mls @ 100 mls/hr 11/30/24 18:00 12/09/24 17:26 Maxipime 1 Gm/Ns 50 Ml IVPB 100 mls/hr DAILY@1800 LILIAN Administration Metronidazole 500 mg in 100 mls @ 100 mls/hr 11/30/24 14:00 12/10/24 05:23 Flagyl 500 Mg/Iso Soln 100 Ml IVPB 100 mls/hr Q8H LILIAN Administration Dextrose 1,000 mls @ 100 mls/hr 11/30/24 16:34 Dextrose 5% 1,000 Ml IVPB PRN PRN Hypoglycemia Protocol Dextrose 1,000 mls @ 50 mls/hr 12/03/24 12:25 Dextrose 10% IV CONT .Q20H PRN if PN is interrupted Sodium Chloride 500 mls @ 30 mls/hr 12/08/24 14:40 12/10/24 08:41 Normal Saline Iv IV CONT 150 mls/hr .[id number] [facility] Infusion Vancomycin HCl 500 mg in 100 mls @ 100 mls/hr 12/10/24 20:00 Vancomycin 500 Mg/Ns 100 Ml IVPB 12/10/24 20:59 ONCE ONE Sodium Chloride 500 mls @ 10 mls/hr 12/10/24 07:30 Normal Saline Iv IV CONT .Q24H [facility] Insulin Aspart 2 - 5 units 12/01/24 00:00 12/10/24 04:07 Insulin Aspart (*Bkc) 100 Units/Ml SUB-Q Not Given Q6HR [facility] Protocol Miscellaneous Information 1 each 12/10/24 00:01 Please Renew Cefepime_. Per [employer] Procedure, It Will Discontinue If Not Renewed XX 01/09/25 00:00 CLARIFY [facility] Naloxone HCl 0.1 mg 11/29/24 17:35 Naloxone Hcl 0.4 Mg/Ml Vial IV PUSH Q2M PRN Opiate Reversal Ondansetron HCl 4 mg 11/26/24 14:10 12/06/24 08:44 Ondansetron Inj 4 Mg/2 Ml Vial IV PUSH 4 mg Q4H PRN Administration Nausea Oxycodone/Acetaminophen 0.5 tablet 11/29/24 17:35 Oxycodone/Acetaminophen (*Crx) 5-325 Mg Tablet PO Q4H PRN Pain Rated 4-6 Pantoprazole Sodium 40 mg 12/02/24 12:00 12/09/24 08:29 Pantoprazole 40 Mg Tablet PO Not Given QAM [facility] Polyethylene Glycol 17 gm 11/30/24 09:00 11/30/24 08:29 Polyethylene Glycol 3350 17 Gm Powd.Pack PO 17 gm QAM [facility] Administration Senna/Docusate Sodium 2 tab 11/29/24 21:00 11/29/24 20:29 Senna/Docusate Sodium Tablet PO 2 tab HS LILIAN Administration Vancomycin HCl 1 each 11/26/24 13:16 Vancomycin For Hemodialysis IVPB PRN PRN Vancomycin Protocol Radiology Results: ITS Impressions Foot X-Ray 11/26/24 12:58 Impression: 1: Moderate soft tissue swelling of the second digit. The distal phalanx not well visualized. Cannot exclude osteomyelitis. 2: Extra-articular fracture left fifth proximal phalanx. Duplex Scan Lower Extremity Artery 11/26/24 13:53 IMPRESSION: 1. No evident hemodynamically significant stenosis either by follow-up elevation of peak systolic velocities or by direct visualization grayscale imaging with brisk systolic upstrokes arteries of the bilateral lower limbs. Head CT 11/30/24 12:22 IMPRESSION: 1. . 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 No acute intracranial process. 2. Age-related changes including mild diffuse volume loss and moderate scattered white matter hypoattenuation consistent with chronic small vessel ischemic disease. Chest X-Ray 11/30/24 12:37 IMPRESSION: 1. Opacities in the right mid and lower lung zones which could represent atelectasis, aspiration and/or pneumonia. 2. Small right pleural effusion. Foot MRI 12/05/24 13:43 IMPRESSION: Status post transmetatarsal amputation of the second digit. 2.4 x 1.8 x 3.3 cm peripherally enhancing fluid collection at the second interspace at the level the proximal metatarsal shafts is compatible with abscess. Diffuse myositis of the plantar musculature of the foot. No evidence for osteomyelitis or fracture. Susceptibility artifact at the operative bed and dorsal soft tissues at the second digit region could reflect artifact and/or open soft tissue wound. Correlate with physical exam. Modified Barium Swallow 12/07/24 09:32 IMPRESSION: Pharyngeal dysphagia with laryngeal penetration and aspiration. Please correlate with speech pathologist findings and specific feeding recommendations. Brain MRI 12/09/24 14:19 IMPRESSION: 1. Small focus of restricted diffusion at the dependent occipital horn of the left lateral ventricle, potentially additional tiny focus similar position on the right. Unclear where this is periventricular or intraventricular, the former consistent with acute infarction in the latter resulting concern for echogenic ventriculitis. Correlate clinically for signs/symptoms of infection. Findings were discussed with Lissette Shepard, the nurse caring for the patient, at 2:42 PM. 2. 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 3. Scattered periventricular and deep white matter predominant T2 hyperintensity consistent with chronic small vessel ischemic disease. There is also linear pattern of increased T2 signal extending transversely across the abdelrahman which could represent additional sequela of chronic small vessel ischemic disease although dissipation also suggests possibility of selected degeneration of the transverse pontine cerebellar tracks which can be seen in the setting of multiple system atrophy or spinocerebellar ataxia. Labs Labs: Laboratory Results - last 24 hr 12/09/24 12/09/2412/10/25 11:59 16:50 05:27 WBC 9.9 RBC 3.13 L Hgb 9.0 L Hct 29.2 L MCV 93.3 MCH 28.8 MCHC 30.8 L RDW 15.4 H Plt Count 254 MPV 10.3 Immature Gran % (Auto) 1.2 H Neut % (Auto) 78.8 H Lymph % (Auto) 9.0 L [place] % (Auto) 7.9 Eos % (Auto) 2.4 Baso % (Auto) 0.7 Lymph # (Auto) 0.89 L [place] # (Auto) 0.8 H Eos # (Auto) 0.2 Baso # (Auto) 0.1 Abs Immat Gran (auto) 0.12 H Absolute Neuts (auto) 7.8 H Absolute Nucleated RBC 0.000 Nucleated RBC % 0.0 Sodium 138 Potassium 4.6 Chloride 103 Carbon Dioxide 21 L Anion Gap 14 H BUN 50 H Creatinine 6.67 H Estim Creat Clear Calc 12 Estimated GFR 9 L Glucose 74 POC Capillary Glucose 103 81 Calcium 8.0 L Phosphorus 7.6 H Magnesium 2.2 Albumin 3.2 L Triglycerides 138 Random Vancomycin 20.9 H 12/10/24 12/10/24 06:11 08:12 WBC RBC Hgb Hct MCV MCH MCHC RDW Plt Count MPV Immature Gran % (Auto) Neut % (Auto) Lymph % (Auto) [place] % (Auto) Eos % (Auto) Baso % (Auto) Lymph # (Auto) [place] # (Auto) Eos # (Auto) Baso # (Auto) Abs Immat Gran (auto) Absolute Neuts (auto) Absolute Nucleated RBC Nucleated RBC % Sodium Potassium Chloride Carbon Dioxide Anion Gap BUN Creatinine Estim Creat Clear Calc Estimated GFR Glucose POC Capillary Glucose 80 63 L Calcium Phosphorus Magnesium Albumin Triglycerides Random Vancomycin
[2024-12-10 08:49] LABS: Glucose Point of Care 109 mg/dl (65-105)
--- NOTE | 2024-12-10 10:52 | PM.IMPN ---
Progress Note: A&P Assessment and Plan (1) Diabetic infection of left foot: Code(s): E11.628 - Type 2 diabetes mellitus with other skin complications; L08.9 - Local infection of the skin and subcutaneous tissue, unspecified Status: Acute Assessment and Plan: Erythema and edema to the dorsal aspect of the left foot extending to the ankle. Unable to palpate DP pulses. Black foul smelling 2nd toe of the left foot. Foot XR left showed moderate soft tissue swelling of the second digit with poor visualization fo the distal phalanx. Osteomyelitis cannot be rule out. Also extra articular fracture to the left fifth proximal phalanx, Duplex showed no evident hemodynamically significant stenosis either by follow-up elevation of peak systolic velocities or by direct visualization grayscale imaging with brisk systolic upstrokes arteries of the bilateral lower limbs. General surgery consulted and appreciate their input. Patient with a gangrenous left 2nd toe with diabetic foot infection s/p open transmetatarsal amputation left 2nd toe on 11/29 Foot MRI Results showing a 2.4 x 1.8 x 3.3 cm peripherally enhancing fluid collection at the second interspace at the level the proximal metatarsal shafts is compatible with abscess. Diffuse myositis of the plantar musculature of the foot. No evidence for osteomyelitis or fracture. Patient went back to the OR for an excisional debridement skin subcutaneous muscle left foot 2 x 2 x 1 cm or 4 cm3 Continue IV abx. Dressing changes per surgery Continue to mi=onitor closely. (2) Necrotizing soft tissue infection: Code(s): M79.89 - Other specified soft tissue disorders Status: Acute Assessment and Plan: Abscess noted on MRI detailed above (3) Gangrenous toe: Code(s): I96 - Gangrene, not elsewhere classified Status: Acute Assessment and Plan: s/p amputation. As above (4) Aspiration pneumonia: Code(s): J69.0 - Pneumonitis due to inhalation of food and vomit Status: Acute Assessment and Plan: Per patient son, the patient has been coughing with meals for a few months. CXR: Opacities in the right mid and lower lung zones which could represent atelectasis, aspiration and/or pneumonia. Small right pleural effusion. Patient continues to fail modified barium swallow at this time so PPN started Etiology of the dysphagia probably related to hx of multiple strokes. GI consulted for peg tube placement unsure if they will wait until we have source control NpO for G tube placement (5) Aortic stenosis: Code(s): I35.0 - Nonrheumatic aortic (valve) stenosis Status: Acute Assessment and Plan: KATLIN negative for infective endocarditis but does shows severe aortic stenosis with ALBINO of 0.9cm2. Will arrange outpatient follow up for his valvular disease. Avoid hypotension (6) Type 2 diabetes mellitus: Code(s): E11.9 - Type 2 diabetes mellitus without complications Status: Acute Assessment and Plan: A1c 5.9%. The patient's blood glucose was reviewed on 12/09 Glucose remains well controlled. Continue AccuCheks covering with sliding scale. Hypoglycemia protocol available as needed. Continue to monitor (7) Anemia: Code(s): D64.9 - Anemia, unspecified Status: Chronic Assessment and Plan: Chronic, likely secondary to ESRD Given epoetin 10,000 units x1 on 11/27 No signs of active bleeding Monitor H&H Tranfuse of hgb <7.0 (8) Carotid artery disease: Qualifiers: Carotid artery disease type: stenosis Laterality: unspecified laterality Qualified Code(s): I65.29 - Occlusion and stenosis of unspecified carotid artery Code(s): I77.9 - Disorder of arteries and arterioles, unspecified Status: Chronic Assessment and Plan: Continue Plavix post surgery once NGT is in place. (9) Hypertension: Qualifiers: Hypertension type: unspecified Qualified Code(s): I10 - Essential (primary) hypertension Code(s): I10 - Essential (primary) hypertension Status: Chronic Assessment and Plan: Patient's blood pressure was reviewed on 12/10 Blood pressure remains reasonably well controlled. Amlodipine 10 mg daily, coreg 25 mg BID, hydralazine 50 mg TID placed on hold due to patient NPO Hydralazine 10 mg IV scheduled TID added. (10) End stage renal disease on dialysis: Code(s): N18.6 - End stage renal disease; Z99.2 - Dependence on renal dialysis Status: Acute Assessment and Plan: Patient with ESRD on dialysis [facility] Nephrology consulted and appreciate their input Pharmacy to dose antibiotic (11) Heart failure with preserved ejection fraction: Qualifiers: Heart failure chronicity: unspecified Qualified Code(s): I50.30 - Unspecified diastolic (congestive) heart failure Code(s): I50.30 - Unspecified diastolic (congestive) heart failure Status: Chronic Assessment and Plan: Chronic, does not appear in acute exacerbation clinically Echo as above Monitor clinically. HD to control fluid status. Plan to follow up with primary habilitation training specialist outpatient. Okay to stop tele (12) Encephalopathy: Code(s): G93.40 - Encephalopathy, unspecified Status: Acute Assessment and Plan: On 11/30/2024: Severely lethargic with a right side lean and associated right gaze. His voice was increasingly garbled and his responses were slow. Remained AOx3 with otherwise benign neuro exam. Likely metabolic vs drug induced (received morphine overnight) encephalopathy. - ABG: pH 7.538, pCO2 35.8, pO2 53.2, HCO3 29.8. Started on 2L NC for hypoxemia. - Lactic WNL. Procal elevated at 6.1. Glucose WNL. - Head CT 11/30: Unchanged small old infarcts in the right frontal lobe, abdelrahman, right lentiform nucleus and left thalamus. No acute intracranial process. Age-related changes including mild diffuse volume loss and moderate scattered white matter hypoattenuation consistent with chronic small vessel ischemic disease. Morphine was discontinued Monitor mental status. Plan Code status: Full code per patient DVT prophylaxis: SCD Subjective Date/time seen: 12/10/24 10:52 Interval history: Follow-up for end stage renal disease on hemodialysis, Pneumonia, Diabetic left foot ulcer. Patient was seen during the morning rounds today. No new overnight compliants. No sob or chest pain. Review of Systems Review of Systems: 12 systems were reviewed and are negative except for as per HPI. All systems reviewed & are unremarkable except as noted in HPI and below Exam Narrative: AF 98.0 148/72 66 16 98% ra Gen - NARD lying flat in bed Chest - few basilar rhonchi o/w clear. nml RR CV - RRR S1/S2 with 2/6 systolic murmur heard t/o the precordium. Abd - Soft, NT/ND, Positive BS Ext - No pedal edema. left foot/ankle dressing clean, dry and intact. Distal pulses weak. Left upper arm thrill and bruit at fistual site Neuro - Alert and oriented x4. Garbled speech Psych - odd affect Skin - Warm and dry Objective Data Vital Signs Vital Signs: Vital Signs - 24 hr 12/09/24 12:00 12/09/24 15:00 12/09/24 20:00 Temperature 36.8 C Pulse Rate 68 69 Respiratory Rate 12 Blood Pressure 156/72 H Pulse Oximetry 97 Oxygen Delivery Room Air Oxygen Flow Rate 12/09/24 22:08 12/10/24 05:58 12/10/24 08:13 Temperature 36.6 C 36.5 C 36.9 C Pulse Rate 70 72 71 Respiratory Rate 18 18 19 Blood Pressure 152/72 H 150/66 H 152/75 H Pulse Oximetry 96 98 98 Oxygen Delivery Room Air Oxygen Flow Rate 12/10/24 08:40 12/10/24 08:50 12/10/24 09:00 Temperature Pulse Rate 124 H 124 H 107 H Respiratory Rate 18 126 H 102 H Blood Pressure 110/63 117/61 128/67 Pulse Oximetry 98 98 100 Oxygen Delivery Nasal Cannula Nasal Cannula Room Air Oxygen Flow Rate 4 4 12/10/24 10:26 Temperature Pulse Rate Respiratory Rate Blood Pressure Pulse Oximetry Oxygen Delivery Room Air Oxygen Flow Rate Intake/Output Intake/Output: Intake & Output 12/07/24 12/08/24 12/09/24 12/10/24 23:59 23:59 23:59 23:59 Intake Total 2850 1350 300 0 Output Total 50 2150 Balance 2800 -800 300 0 Meds/Results Medications: Active Medications Generic Name Dose Route Start Last Admin Trade Name Freq PRN Reason Stop Dose Admin Amlodipine Besylate 10 mg 11/27/24 09:00 11/30/24 08:30 Amlodipine Besylate 10 Mg Tablet PO 10 mg DAILY LILIAN Administration Aspirin 300 mg 12/09/24 15:40 12/09/24 17:27 Aspirin 300 Mg Suppository RECTAL 300 mg DAILY LILIAN Administration Atorvastatin Calcium 80 mg 11/27/24 09:00 12/01/24 11:36 Atorvastatin 40 Mg Tablet PO Not Given DAILY LILIAN Carvedilol 25 mg 11/26/24 21:00 11/30/24 08:29 Carvedilol 25 Mg Tablet PO 25 mg Q12HR LILIAN Administration Collagenase 1 applic 12/03/24 21:00 12/09/24 21:11 Collagenase Oint 30 Gm Tube TOPICAL 1 applic Q12HR LILIAN Administration Dextrose 12.5 gm 11/30/24 16:34 Dextrose 50% 25 Gm/50 Ml Syringe IV PUSH PRN PRN Hypoglycemia Protocol Docusate Sodium 100 mg 11/26/24 17:00 11/30/24 17:21 Docusate Sodium 100 Mg Capsule PO Not Given BID LILIAN Glucagon 1 mg 11/30/24 16:34 Glucagon For Inj 1 Mg Vial IM PRN PRN Hypoglycemia Protocol Glucose 15 gm 11/30/24 16:34 Glucose Oral Gel 15 Gm Of Glucse In 37.5 Gm Tube PO PRN PRN Hypoglycemia Protocol Hydralazine HCl 50 mg 11/26/24 17:00 11/30/24 12:49 Hydralazine Hcl 50 Mg Tablet PO Not Given TID LILIAN Hydralazine HCl 10 mg 12/10/24 06:00 12/10/24 05:23 Hydralazine Hcl 20 Mg/Ml Vial IV PUSH 10 mg Q8HR LILIAN Administration Albumin Human 50 mls @ 999 mls/hr 11/27/24 06:51 Albutein IVPB 12/27/24 06:50 Q10M PRN HYPOTENSION Ibuprofen 800 mg in 200 mls @ 400 mls/hr 11/29/24 17:35 12/08/24 20:37 Caldolor 800 Mg/200 Ml IVPB 400 mls/hr Q6H PRN Administration Breakthrough Pain Rated 1-3 or NPO Cefepime HCl 1 gm in 50 mls @ 100 mls/hr 11/30/24 18:00 12/09/24 17:26 Maxipime 1 Gm/Ns 50 Ml IVPB 100 mls/hr DAILY@1800 LILIAN Administration Metronidazole 500 mg in 100 mls @ 100 mls/hr 11/30/24 14:00 12/10/24 05:23 Flagyl 500 Mg/Iso Soln 100 Ml IVPB 100 mls/hr Q8H LILIAN Administration Dextrose 1,000 mls @ 100 mls/hr 11/30/24 16:34 Dextrose 5% 1,000 Ml IVPB PRN PRN Hypoglycemia Protocol Dextrose 1,000 mls @ 50 mls/hr 12/03/24 12:25 Dextrose 10% IV CONT .Q20H PRN if PN is interrupted Vancomycin HCl 500 mg in 100 mls @ 100 mls/hr 12/10/24 20:00 Vancomycin 500 Mg/Ns 100 Ml IVPB 12/10/24 20:59 ONCE ONE Sodium Chloride 500 mls @ 10 mls/hr 12/10/24 07:30 12/10/24 10:44 Normal Saline Iv IV CONT Not Given .Q24H [facility] Insulin Aspart 2 - 5 units 12/01/24 00:00 12/10/24 10:43 Insulin Aspart (*Bkc) 100 Units/Ml SUB-Q Not Given Q6HR [facility] Protocol Miscellaneous Information 1 each 12/10/24 00:01 Please Renew Cefepime_. Per [employer] Procedure, It Will Discontinue If Not Renewed XX 01/09/25 00:00 CLARIFY [facility] Naloxone HCl 0.1 mg 11/29/24 17:35 Naloxone Hcl 0.4 Mg/Ml Vial IV PUSH Q2M PRN Opiate Reversal Ondansetron HCl 4 mg 11/26/24 14:10 12/06/24 08:44 Ondansetron Inj 4 Mg/2 Ml Vial IV PUSH 4 mg Q4H PRN Administration Nausea Oxycodone/Acetaminophen 0.5 tablet 11/29/24 17:35 Oxycodone/Acetaminophen (*Crx) 5-325 Mg Tablet PO Q4H PRN Pain Rated 4-6 Pantoprazole Sodium 40 mg 12/02/24 12:00 12/10/24 10:45 Pantoprazole 40 Mg Tablet PO Not Given QAM LILIAN Polyethylene Glycol 17 gm 11/30/24 09:00 11/30/24 08:29 Polyethylene Glycol 3350 17 Gm Powd.Pack PO 17 gm QAM LILIAN Administration Senna/Docusate Sodium 2 tab 11/29/24 21:00 11/29/24 20:29 Senna/Docusate Sodium Tablet PO 2 tab HS LILIAN Administration Vancomycin HCl 1 each 11/26/24 13:16 Vancomycin For Hemodialysis IVPB PRN PRN Vancomycin Protocol Radiology Results: ITS Impressions Foot X-Ray 11/26/24 12:58 Impression: 1: Moderate soft tissue swelling of the second digit. The distal phalanx not well visualized. Cannot exclude osteomyelitis. 2: Extra-articular fracture left fifth proximal phalanx. Duplex Scan Lower Extremity Artery 11/26/24 13:53 IMPRESSION: 1. No evident hemodynamically significant stenosis either by follow-up elevation of peak systolic velocities or by direct visualization grayscale imaging with brisk systolic upstrokes arteries of the bilateral lower limbs. Head CT 11/30/24 12:22 IMPRESSION: 1. . 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 No acute intracranial process. 2. Age-related changes including mild diffuse volume loss and moderate scattered white matter hypoattenuation consistent with chronic small vessel ischemic disease. Chest X-Ray 11/30/24 12:37 IMPRESSION: 1. Opacities in the right mid and lower lung zones which could represent atelectasis, aspiration and/or pneumonia. 2. Small right pleural effusion. Foot MRI 12/05/24 13:43 IMPRESSION: Status post transmetatarsal amputation of the second digit. 2.4 x 1.8 x 3.3 cm peripherally enhancing fluid collection at the second interspace at the level the proximal metatarsal shafts is compatible with abscess. Diffuse myositis of the plantar musculature of the foot. No evidence for osteomyelitis or fracture. Susceptibility artifact at the operative bed and dorsal soft tissues at the second digit region could reflect artifact and/or open soft tissue wound. Correlate with physical exam. Modified Barium Swallow 12/07/24 09:32 IMPRESSION: Pharyngeal dysphagia with laryngeal penetration and aspiration. Please correlate with speech pathologist findings and specific feeding recommendations. Brain MRI 12/09/24 14:19 IMPRESSION: 1. Small focus of restricted diffusion at the dependent occipital horn of the left lateral ventricle, potentially additional tiny focus similar position on the right. Unclear where this is periventricular or intraventricular, the former consistent with acute infarction in the latter resulting concern for echogenic ventriculitis. Correlate clinically for signs/symptoms of infection. Findings were discussed with Lissette Shepard, the nurse caring for the patient, at 2:42 PM. 2. 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 3. Scattered periventricular and deep white matter predominant T2 hyperintensity consistent with chronic small vessel ischemic disease. There is also linear pattern of increased T2 signal extending transversely across the abdelrahman which could represent additional sequela of chronic small vessel ischemic disease although dissipation also suggests possibility of selected degeneration of the transverse pontine cerebellar tracks which can be seen in the setting of multiple system atrophy or spinocerebellar ataxia. Labs Labs: Laboratory Results - last 24 hr 12/09/24 12/09/24 12/10/24 11:59 16:50 05:27 WBC 9.9 RBC 3.13 L Hgb 9.0 L Hct 29.2 L MCV 93.3 MCH 28.8 MCHC 30.8 L RDW 15.4 H Plt Count 254 MPV 10.3 Immature Gran % (Auto) 1.2 H Neut % (Auto) 78.8 H Lymph % (Auto) 9.0 L Ballard % (Auto) 7.9 Eos % (Auto) 2.4 Baso % (Auto) 0.7 Lymph # (Auto) 0.89 L Ballard # (Auto) 0.8 H Eos # (Auto) 0.2 Baso # (Auto) 0.1 Abs Immat Gran (auto) 0.12 H Absolute Neuts (auto) 7.8 H Absolute Nucleated RBC 0.000 Nucleated RBC % 0.0 Sodium 138 Potassium 4.6 Chloride 103 Carbon Dioxide 21 L Anion Gap 14 H BUN 50 H Creatinine 6.67 H Estim Creat Clear Calc 12 Estimated GFR 9 L Glucose 74 POC Capillary Glucose 103 81 Calcium 8.0 L Phosphorus 7.6 H Magnesium 2.2 Albumin 3.2 L Triglycerides 138 Random Vancomycin 20.9 H 12/10/24 12/10/24 12/10/24 06:11 08:12 08:34 WBC RBC Hgb Hct MCV MCH MCHC RDW Plt Count MPV Immature Gran % (Auto) Neut % (Auto) Lymph % (Auto) Ballard % (Auto) Eos % (Auto) Baso % (Auto) Lymph # (Auto) Ballard # (Auto) Eos # (Auto) Baso # (Auto) Abs Immat Gran (auto) Absolute Neuts (auto) Absolute Nucleated RBC Nucleated RBC % Sodium Potassium Chloride Carbon Dioxide Anion Gap BUN Creatinine Estim Creat Clear Calc Estimated GFR Glucose POC Capillary Glucose 80 63 L 109 H Calcium Phosphorus Magnesium Albumin Triglycerides Random Vancomycin Quality VTE Prophylaxis VTE prophylaxis: mechanical ordered
--- NOTE | 2024-12-10 11:43 | PCNFU ---
Nutrition Follow-Up Complete: Swallowing Difficulties as related to Dysphagia as evidenced by NPO. Meet estimated nutritional needs - Not progressing, Plan is to get a surgical PEG placement today. Continue with progress to goal Goal: Pt current nutrition is NPO. Nutrition recommendation: Tube feeding recommendation: Nepro, start at 20ml/hr and advance by 10mls q 4 hrs to goal rate of 50ml/hr to provide 1980kcals, 89g protein, 800ml free water (22h). Flush 175ml q 4 hrs to total 1850ml free water per 24 hrs. Last recorded weight is 92.3 kg. Bowel Motility: +4 BMs 12/07/24 Labs Reviewed: Hgb 9.0, Hct 29.2, Alb 3.2, BUN 50, Cre 6.67, Glu 109 Meds Noted: Miralax, colace, senna, novolog, protonix Skin: WNL Additional Notes: Could not place PEG yesterday, plan for surgical placement today. Can start TF when PEG is cleared for use. Will monitor weight, labs, skin, diet orders,meds every 3 days .
[2024-12-10 12:30] LABS: Glucose Point of Care 78 mg/dl (65-105)
--- NOTE | 2024-12-10 14:29 | PCOTNOTE ---
Attempted to see pt for OT evaluation however he just left the floor for dialysis. Will continue to follow.
[2024-12-10] MEDS: HEPARIN SODIUM 1,000 UNITS/ML VIAL 4000 UNITS (14:41)
--- NOTE | 2024-12-10 16:09 | P.PNNP_ITS ---
Progress Note: A&P Assessment and Plan (1) End stage renal disease: Code(s): N18.6 - End stage renal disease Status: Chronic Assessment and Plan: * HD later today * volume status looks okay * potassium and BUN okay (2) Gangrene of toe of left foot: Code(s): I96 - Gangrene, not elsewhere classified Status: Acute Assessment and Plan: * as noted by clinical exam on admission * Surgery following * s/p open transmetatarsal amputation left 2nd toe (11/29) * MRI of left foot results reviewed -- see #4 * s/p excisional debridement of left foot (12/08) * on IV cefipime, vanco, and flagyl (3) Cellulitis of left foot: Code(s): L03.116 - Cellulitis of left lower limb Status: Acute Assessment and Plan: * as noted on presentation * likely a complication of diabetes and #2 * on above atbs (4) Bacteremia: Code(s): R78.81 - Bacteremia Status: Acute Assessment and Plan: * as noted: * blood cultures (11/26): MRSA * blood cultures (11/28): MRSA * blood cultures (12/01): MRSA (1 out of 2 sets) * blood cultures (12/02): no growth (2 of 2) * blood cultures (12/03): Staphylococcus aureus (1 out of 2 sets) * blood cultures (12/10) pending * presumably related to #2 and #3 * results of KATLIN noted (12/01): * No evidence of infective endocarditis. The aortic valve is severely calcified with severe aortic stenosis with an ALBINO of 0.9cm2 by planimetry. * on cefipime, vanco, and flagyl * MRI of left foot (12/05) noted: * status post transmetatarsal amputation of the second digit * 2.4 x 1.8 x 3.3 cm peripherally enhancing fluid collection at the second interspace at the level the proximal metatarsal shafts is compatible with abscess * diffuse myositis of the plantar musculature of the foot * no evidence for osteomyelitis or fracture * follow culture data () Altered mental status: Code(s): R41.82 - Altered mental status, unspecified Status: Acute Assessment and Plan: * slow improvement noted (if not back to baseline) * still with noted dysarthria * initially noted this on morning of 11/30 * testing/evaluation noted at that time: * ABG: pH 7.538, pCO2 35.8, pO2 53.2, HCO3 29.8 * lactic normal; procalcitonin elevated at 6.1; glucose okay * CT of brain: unchanged small old infarcts in the right frontal lobe, abdelrahman, right lentiform nucleus and left thalamus; no acute intracranial process; age-related changes including mild diffuse volume loss and moderate scattered white matter hypoattenuation consistent with chronic small vessel ischemic disease * CXR: opacities in the right mid and lower lung zones which could represent atelectasis, aspiration and/or pneumonia; small right pleural effusion * MRI of brain today * pt is interactive today, not sure of his baseline (6) Aspiration pneumonia: Code(s): J69.0 - Pneumonitis due to inhalation of food and vomit Status: Acute Assessment and Plan: * as suggested by CXR on 11/30 * on antibiotics * viral testing (COVID/RSV/influenza) negative * NPO as failed modified barium swallow x 3 * speech therapy following * started on PPN for nutritional support * may need PEG-tube * follow respiratory status * no sob and on 4L o2 (7) Anemia: Code(s): D64.9 - Anemia, unspecified Status: Chronic Assessment and Plan: * due to ESRD with worsening due to acute illness/infection * hb 9 today * Epogen with HD (8) Heart failure with preserved ejection fraction: Qualifiers: Heart failure chronicity: unspecified Qualified Code(s): I50.30 - Unspecified diastolic (congestive) heart failure Code(s): I50.30 - Unspecified diastolic (congestive) heart failure Status: Chronic Assessment and Plan: * appears compensated * fluid removal with dialysis as tolerated to maintain euvolemia * continue supportive therapy (9) Hypertension: Qualifiers: Hypertension type: unspecified Qualified Code(s): I10 - Essential (primary) hypertension Code(s): I10 - Essential (primary) hypertension Status: Chronic Assessment and Plan: * reasonable control during hospitalization * I saw him earlier today and it was fine all day but when he started dialysis his bp has been very high. I called [facility] and pt is comfortable and tolerating dialysis well. will give a clonidine to bring bp down a bit. * known history of poor control at baseline * follow trend of hemodynamics (10) Diabetes: Qualifiers: Diabetes mellitus type: type 2 Diabetes mellitus manager intermediate insulin use: without snf use Diabetes mellitus complication status: with kidney complications Diabetes mellitus complication detail: with chronic kidney disease Chronic kidney disease stage: on chronic dialysis Qualified Code(s): E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 Subjective Date/time seen: 12/10/24 16:09 Interval history: pt lying in bed. no complaints. Exam Narrative: General: WD/WN male in NAD Heart: normal S1 and S2; no rub or gallop Lungs: clear anteriorly Abdomen: soft, nontender, nondistended, positive bowel sounds Extremities: no edema Skin: left foot dressings noted Objective Data Vital Signs Vital Signs: Vital Signs - 24 hr 12/09/24 20:00 12/09/24 22:08 12/10/24 05:58 Temperature 98 F 97.7 F Pulse Rate 70 72 Respiratory Rate 18 18 Blood Pressure 152/72 H 150/66 H Pulse Oximetry 96 98 Oxygen Delivery Room Air Oxygen Flow Rate 12/10/24 08:13 12/10/24 08:40 12/10/24 08:50 Temperature 98.4 F Pulse Rate 71 124 H 124 H Respiratory Rate 19 18 126 H Blood Pressure 152/75 H 110/63 117/61 Pulse Oximetry 98 98 98 Oxygen Delivery Room Air Nasal Cannula Nasal Cannula Oxygen Flow Rate 4 4 12/10/24 09:00 12/10/24 10:26 12/10/24 14:31 Temperature 98.2 F Pulse Rate 107 H 75 Respiratory Rate 102 H 18 Blood Pressure 128/67 177/86 H Pulse Oximetry 100 Oxygen Delivery Room Air Room Air Oxygen Flow Rate 12/10/24 14:41 Temperature Pulse Rate 71 Respiratory Rate Blood Pressure 182/88 H Pulse Oximetry Oxygen Delivery Oxygen Flow Rate Intake/Output Intake/Output: Intake & Output 12/07/24 12/08/24 12/09/24 12/10/24 23:59 23:59 23:59 23:59 Intake Total 2850 1350 300 0 Output Total 50 2150 Balance 2800 -800 300 0 Meds/Results Medications: Active Medications Generic Name Dose Route Start Last Admin Trade Name Freq PRN Reason Stop Dose Admin Amlodipine Besylate 10 mg 11/27/24 09:00 11/30/24 08:30 Amlodipine Besylate 10 Mg Tablet PO 10 mg DAILY [facility] Administration Aspirin 300 mg 12/09/24 15:40 12/10/24 11:27 Aspirin 300 Mg Suppository RECTAL Not Given DAILY [facility] Atorvastatin Calcium 80 mg 11/27/24 09:00 12/01/24 11:36 Atorvastatin 40 Mg Tablet PO Not Given DAILY [facility] Carvedilol 25 mg 11/26/24 21:00 11/30/24 08:29 Carvedilol 25 Mg Tablet PO 25 mg Q12HR [facility] Administration Collagenase 1 applic 12/03/24 21:00 12/09/24 21:11 Collagenase Oint 30 Gm Tube TOPICAL 1 applic Q12HR [facility] Administration Dextrose 12.5 gm 11/30/24 16:34 Dextrose 50% 25 Gm/50 Ml Syringe IV PUSH PRN PRN Hypoglycemia Protocol Docusate Sodium 100 mg 11/26/24 17:00 11/30/24 17:21 Docusate Sodium 100 Mg Capsule PO Not Given BID [facility] Glucagon 1 mg 11/30/24 16:34 Glucagon For Inj 1 Mg Vial IM PRN PRN Hypoglycemia Protocol Glucose 15 gm 11/30/24 16:34 Glucose Oral Gel 15 Gm Of Glucse In 37.5 Gm Tube PO PRN PRN Hypoglycemia Protocol Hydralazine HCl 50 mg 11/26/24 17:00 11/30/24 12:49 Hydralazine Hcl 50 Mg Tablet PO Not Given TID [facility] Hydralazine HCl 10 mg 12/10/24 06:00 12/10/24 05:23 Hydralazine Hcl 20 Mg/Ml Vial IV PUSH 10 mg Q8HR LILIAN Administration Albumin Human 50 mls @ 999 mls/hr 11/27/24 06:51 Albutein IVPB 12/27/24 06:50 Q10M PRN HYPOTENSION Ibuprofen 800 mg in 200 mls @ 400 mls/hr 11/29/24 17:35 12/08/24 20:37 Caldolor 800 Mg/200 Ml IVPB 400 mls/hr Q6H PRN Administration Breakthrough Pain Rated 1-3 or NPO Cefepime HCl 1 gm in 50 mls @ 100 mls/hr 11/30/24 18:00 12/09/24 17:26 Maxipime 1 Gm/Ns 50 Ml IVPB 100 mls/hr DAILY@1800 LILIAN Administration Metronidazole 500 mg in 100 mls @ 100 mls/hr 11/30/24 14:00 12/10/24 05:23 Flagyl 500 Mg/Iso Soln 100 Ml IVPB 100 mls/hr Q8H L[facility]IAN Administration Dextrose 1,000 mls @ 100 mls/hr 11/30/24 16:34 Dextrose 5% 1,000 Ml IVPB PRN PRN Hypoglycemia Protocol Dextrose 1,000 mls @ 50 mls/hr 12/03/24 12:25 Dextrose 10% IV CONT .Q20H PRN if PN is interrupted Vancomycin HCl 500 mg in 100 mls @ 100 mls/hr 12/10/24 20:00 Vancomycin 500 Mg/Ns 100 Ml IVPB 12/10/24 20:59 ONCE ONE Sodium Chloride 500 mls @ 10 mls/hr 12/10/24 07:30 12/10/24 10:44 Normal Saline Iv IV CONT Not Given .Q24H [facility] Insulin Aspart 2 - 5 units 12/01/24 00:00 12/10/24 13:33 Insulin Aspart (*Bkc) 100 Units/Ml SUB-Q Not Given Q6HR [facility] Protocol Miscellaneous Information 1 each 12/10/24 00:01 Please Renew Cefepime_. Per [employer] Procedure, It Will Discontinue If Not Renewed XX 01/09/25 00:00 [facility] Naloxone HCl 0.1 mg 11/29/24 17:35 Naloxone Hcl 0.4 Mg/Ml Vial IV PUSH Q2M PRN Opiate Reversal Ondansetron HCl 4 mg 11/26/24 14:10 12/06/24 08:44 Ondansetron Inj 4 Mg/2 Ml Vial IV PUSH 4 mg Q4H PRN Administration Nausea Oxycodone/Acetaminophen 0.5 tablet 11/29/24 17:35 Oxycodone/Acetaminophen (*Crx) 5-325 Mg Tablet PO Q4H PRN Pain Rated 4-6 Pantoprazole Sodium 40 mg 12/02/24 12:00 12/10/24 10:45 Pantoprazole 40 Mg Tablet PO Not Given QAM LILIAN Polyethylene Glycol 17 gm 11/30/24 09:00 11/30/24 08:29 Polyethylene Glycol 3350 17 Gm Powd.Pack PO 17 gm QAM [facility] Administration Senna/Docusate Sodium 2 tab 11/29/24 21:00 11/29/24 20:29 Senna/Docusate Sodium Tablet PO 2 tab HS LILIAN Administration Vancomycin HCl 1 each 11/26/24 13:16 Vancomycin For Hemodialysis IVPB PRN PRN Vancomycin Protocol Radiology Results: ITS Impressions Foot X-Ray 11/26/24 12:58 Impression: 1: Moderate soft tissue swelling of the second digit. The distal phalanx not well visualized. Cannot exclude osteomyelitis. 2: Extra-articular fracture left fifth proximal phalanx. Duplex Scan Lower Extremity Artery 11/26/24 13:53 IMPRESSION: 1. No evident hemodynamically significant stenosis either by follow-up elevation of peak systolic velocities or by direct visualization grayscale imaging with brisk systolic upstrokes arteries of the bilateral lower limbs. Head CT 11/30/24 12:22 IMPRESSION: 1. . 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 No acute intracranial process. 2. Age-related changes including mild diffuse volume loss and moderate scattered white matter hypoattenuation consistent with chronic small vessel ischemic disease. Chest X-Ray 11/30/24 12:37 IMPRESSION: 1. Opacities in the right mid and lower lung zones which could represent atelectasis, aspiration and/or pneumonia. 2. Small right pleural effusion. Foot MRI 12/05/24 13:43 IMPRESSION: Status post transmetatarsal amputation of the second digit. 2.4 x 1.8 x 3.3 cm peripherally enhancing fluid collection at the second interspace at the level the proximal metatarsal shafts is compatible with abscess. Diffuse myositis of the plantar musculature of the foot. No evidence for osteomyelitis or fracture. Susceptibility artifact at the operative bed and dorsal soft tissues at the second digit region could reflect artifact and/or open soft tissue wound. Correlate with physical exam. Modified Barium Swallow 12/07/24 09:32 IMPRESSION: Pharyngeal dysphagia with laryngeal penetration and aspiration. Please correlate with speech pathologist findings and specific feeding recommendations. Brain MRI 12/09/24 14:19 IMPRESSION: 1. Small focus of restricted diffusion at the dependent occipital horn of the left lateral ventricle, potentially additional tiny focus similar position on the right. Unclear where this is periventricular or intraventricular, the former consistent with acute infarction in the latter resulting concern for echogenic ventriculitis. Correlate clinically for signs/symptoms of infection. Findings were discussed with Lissette Shepard, the nurse caring for the patient, at 2:42 PM. 2. 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 3. Scattered periventricular and deep white matter predominant T2 hyperintensity consistent with chronic small vessel ischemic disease. There is also linear pattern of increased T2 signal extending transversely across the abdelrahman which could represent additional sequela of chronic small vessel ischemic disease although dissipation also suggests possibility of selected degeneration of the transverse pontine cerebellar tracks which can be seen in the setting of multiple system atrophy or spinocerebellar ataxia. Labs Labs: Laboratory Results - last 24 hr 12/09/24 12/10/24 12/10/24 16:50 05:27 06:11 WBC 9.9 RBC 3.13 L Hgb 9.0 L Hct 29.2 L MCV 93.3 MCH 28.8 MCHC 30.8 L RDW 15.4 H Plt Count 254 MPV 10.3 Immature Gran % (Auto) 1.2 H Neut % (Auto) 78.8 H Lymph % (Auto) 9.0 L [place] % (Auto) 7.9 Eos % (Auto) 2.4 Baso % (Auto) 0.7 Lymph # (Auto) 0.89 L [place] # (Auto) 0.8 H Eos # (Auto) 0.2 Baso # (Auto) 0.1 Abs Immat Gran (auto) 0.12 H Absolute Neuts (auto) 7.8 H Absolute Nucleated RBC 0.000 Nucleated RBC % 0.0 Sodium 138 Potassium 4.6 Chloride 103 Carbon Dioxide 21 L Anion Gap 14 H BUN 50 H Creatinine 6.67 H Estim Creat Clear Calc 12 Estimated GFR 9 L Glucose 74 POC Capillary Glucose 81 80 Calcium 8.0 L Phosphorus 7.6 H Magnesium 2.2 Albumin 3.2 L Triglycerides 138 Random Vancomycin 20.9 H 12/10/24 12/10/24 12/10/24 08:12 08:34 12:28 WBC RBC Hgb Hct MCV MCH MCHC RDW Plt Count MPV Immature Gran % (Auto) Neut % (Auto) Lymph % (Auto) [place] % (Auto) Eos % (Auto) Baso % (Auto) Lymph # (Auto) [place] # (Auto) Eos # (Auto) Baso # (Auto) Abs Immat Gran (auto) Absolute Neuts (auto) Absolute Nucleated RBC Nucleated RBC % Sodium Potassium Chloride Carbon Dioxide Anion Gap BUN Creatinine Estim Creat Clear Calc Estimated GFR Glucose POC Capillary Glucose 63 L 109 H 78 Calcium Phosphorus Magnesium Albumin Triglycerides Random Vancomycin
[2024-12-10] MEDS: COLLAGENASE OINT 30 GM TUBE 1 APPLIC TOPICAL (18:14)
[2024-12-10 18:46] LABS: Glucose Point of Care 76 mg/dl (65-105)
[2024-12-10] MEDS: VANCOMYCIN 500 MG/NS 100 ML 500 MG/100 ML BAG 100 MG IVPB (21:14)
[2024-12-11] MEDS: DEXTROSE 50% 25 GM/50 ML SYRINGE IV PUSH (01:42)
[2024-12-11 02:15] LABS: Glucose Point of Care 115 mg/dl (65-105)
[2024-12-11 02:15] LABS: Glucose Point of Care 71 mg/dl (65-105)
[2024-12-11] MEDS: metroNIDAZOLE 500 MG/ISO 100ML 500 MG/100 ML BAG 100 MG IVPB (04:07)
[2024-12-11 06:00] VITALS: BP 188/82; PULSE 74; RESP 18; TEMP 36.6; O2SAT 98
[2024-12-11 06:17] LABS: Alanine Aminotransferase 14 U/L (6-50); Albumin Level 3.4 g/dL (3.5-5.1); Alkaline Phosphatase 100 U/L (38-126); Anion Gap 12 mmol/L (4-12); Aspartate Amino Transferase 24 U/L (17-59); Bilirubin,Total 0.9 mg/dL (0.2-1.3); Blood Urea Nitrogen 26 mg/dL (9-20); Calcium 8.3 mg/dL (8.4-10.2); Carbon Dioxide 26 mmol/L (22-30); Chloride 101 mmol/L (98-107); Estimated CRCL calculation 18 ml/min; Estimated Glomerular Filt Rate 13; Glucose 84 mg/dL (65-110); Magnesium 2.2 mg/dL (1.6-2.3); Potassium 4.3 mmol/L (3.4-5.0); Sodium 139 mmol/L (137-145); Total Protein 7.6 g/dL (6.3-8.2)
[2024-12-11] MEDS: hydrALAZINE HCL 20 MG/ML VIAL 10 MG IV PUSH (06:35)
[2024-12-11 06:46] LABS: Glucose Point of Care 80 mg/dl (65-105)
--- NOTE | 2024-12-11 07:45 | PC.NURSE ---
Addendum entered by Lissette Shepard RN 12/11/24 08:35: Dr. Nevarez made aware. He will relay to Dr. Cortes Original Note: Pt refusing lumbar puncture at this time. Radiology made aware.
[2024-12-11 08:30] LABS: Basophils Absolute Auto 0.1 K/mm3 (0.0-0.1); Basophils Percent Auto 0.9 % (0.2-1.2); Eosinophils Absolute Auto 0.1 K/mm3 (0-0.3); Eosinophils Percent Auto 1.5 % (0-4.4); Hematocrit 32.1 % (42.0-52.0); Hemoglobin 9.8 g/dL (14.0-18.0); Immature Granulocyte Absolute 0.06 K/mm3 (0.00-0.031); Immature Granulocyte Percent A 0.7 % (0-0.5); Lymphocytes Absolute Auto 0.87 K/mm3 (0.9-3.2); Lymphocytes Percent Auto 10.1 % (18.3-44.2); Mean Corpuscular HGB Conc 30.5 g/dl (32-36); Mean Corpuscular Hemoglobin 28.5 pg (26-34); Mean Corpuscular Volume 93.3 fl (80-100); Mean Platelet Volume 9.9 fl (7.4-10.4); Monocytes Absolute Auto 0.8 K/mm3 (0.1-0.6); Monocytes Percent Auto 9.4 % (2.6-8.5); Neutrophils Absolute Auto 6.7 K/mm3 (1.3-6.7); Neutrophils Percent Auto 77.4 % (45.5-73.1); Platelet Count Result 276 k/mm3 (150-375); Red Blood Count 3.44 M/mm3 (4.6-6.20); Red Cell Distribution Width 15.5 % (11.5-14.5); White Blood Count 8.6 K/mm3 (4.5-10.0)
[2024-12-11 08:40] LABS: Alanine Aminotransferase 14 U/L (6-50); Albumin Level 3.3 g/dL (3.5-5.1); Alkaline Phosphatase 104 U/L (38-126); Anion Gap 13 mmol/L (4-12); Aspartate Amino Transferase 26 U/L (17-59); Blood Urea Nitrogen 26 mg/dL (9-20); Calcium 8.4 mg/dL (8.4-10.2); Carbon Dioxide 24 mmol/L (22-30); Chloride 103 mmol/L (98-107); Estimated CRCL calculation 18 ml/min; Estimated Glomerular Filt Rate 14; Glucose 84 mg/dL (65-110); Magnesium 2.2 mg/dL (1.6-2.3); Potassium 4.5 mmol/L (3.4-5.0); Sodium 140 mmol/L (137-145); Total Protein 7.7 g/dL (6.3-8.2)
[2024-12-11 08:45] LABS: Partial Thromboplastin Time 36.4 Seconds (22.3-36.8)
[2024-12-11 08:47] LABS: Transferrin 90 mg/dL (206-381)
--- NOTE | 2024-12-11 10:06 | P.PNIM_ITS ---
Progress Note: A&P Assessment and Plan (1) Diabetic infection of left foot: Code(s): E11.628 - Type 2 diabetes mellitus with other skin complications; L08.9 - Local infection of the skin and subcutaneous tissue, unspecified Status: Acute Assessment and Plan: Erythema and edema to the dorsal aspect of the left foot extending to the ankle. Unable to palpate DP pulses. Black foul smelling 2nd toe of the left foot. Foot XR left showed moderate soft tissue swelling of the second digit with poor visualization fo the distal phalanx. Osteomyelitis cannot be rule out. Also extra articular fracture to the left fifth proximal phalanx, Duplex showed no evident hemodynamically significant stenosis either by follow- up elevation of peak systolic velocities or by direct visualization grayscale imaging with brisk systolic upstrokes arteries of the bilateral lower limbs. General surgery consulted and appreciate their input. Patient with a gangrenous left 2nd toe with diabetic foot infection s/p open transmetatarsal amputation left 2nd toe on 11/29 Foot MRI Results showing a 2.4 x 1.8 x 3.3 cm peripherally enhancing fluid collection at the second interspace at the level the proximal metatarsal shafts is compatible with abscess. Diffuse myositis of the plantar musculature of the foot. No evidence for osteomyelitis or fracture. Patient went back to the OR for an excisional debridement skin subcutaneous musc le left foot 2 x 2 x 1 cm or 4 cm3 Continue IV abx. Dressing changes per surgery Continue to mi=onitor closely. (2) Necrotizing soft tissue infection: Code(s): M79.89 - Other specified soft tissue disorders Status: Acute Assessment and Plan: Abscess noted on MRI detailed above (3) Gangrenous toe: Code(s): I96 - Gangrene, not elsewhere classified Status: Acute Assessment and Plan: s/p amputation. As above (4) Aspiration pneumonia: Code(s): J69.0 - Pneumonitis due to inhalation of food and vomit Status: Acute Assessment and Plan: Per patient son, the patient has been coughing with meals for a few months. CXR: Opacities in the right mid and lower lung zones which could represent atelectasis, aspiration and/or pneumonia. Small right pleural effusion. Patient continues to fail modified barium swallow at this time so PPN started Etiology of the dysphagia probably related to hx of multiple strokes. GI consulted for peg tube placement unsure if they will wait until we have source control NpO for G tube placement (5) Aortic stenosis: Code(s): I35.0 - Nonrheumatic aortic (valve) stenosis Status: Acute Assessment and Plan: KATLIN negative for infective endocarditis but does shows severe aortic stenosis with ALBINO of 0.9cm2. Will arrange outpatient follow up for his valvular disease. Avoid hypotension (6) Type 2 diabetes mellitus: Code(s): E11.9 - Type 2 diabetes mellitus without complications Status: Acute Assessment and Plan: A1c 5.9%. The patient's blood glucose was reviewed on 12/09 Glucose remains well controlled. Continue AccuCheks covering with sliding scale. Hypoglycemia protocol available as needed. Continue to monitor (7) Anemia: Code(s): D64.9 - Anemia, unspecified Status: Chronic Assessment and Plan: Chronic, likely secondary to ESRD Given epoetin 10,000 units x1 on 11/27 No signs of active bleeding Monitor H&H Tranfuse of hgb <7.0 (8) Carotid artery disease: Qualifiers: Carotid artery disease type: stenosis Laterality: unspecified laterality Qualified Code(s): I65.29 - Occlusion and stenosis of unspecified carotid artery Code(s): I77.9 - Disorder of arteries and arterioles, unspecified Status: Chronic Assessment and Plan: Continue Plavix post surgery once NGT is in place. (9) Hypertension: Qualifiers: Hypertension type: unspecified Qualified Code(s): I10 - Essential (primary) hypertension Code(s): I10 - Essential (primary) hypertension Status: Chronic Assessment and Plan: Patient's blood pressure was reviewed on 12/10 Blood pressure remains reasonably well controlled. Amlodipine 10 mg daily, coreg 25 mg BID, hydralazine 50 mg TID placed on hold due to patient NPO Hydralazine 10 mg IV scheduled TID added. (10) End stage renal disease on dialysis: Code(s): N18.6 - End stage renal disease; Z99.2 - Dependence on renal dialysis Status: Acute Assessment and Plan: Patient with ESRD on dialysis [facility] Nephrology consulted and appreciate their input Pharmacy to dose antibiotic (11) Heart failure with preserved ejection fraction: Qualifiers: Heart failure chronicity: unspecified Qualified Code(s): I50.30 - Unspecified diastolic (congestive) heart failure Code(s): I50.30 - Unspecified diastolic (congestive) heart failure Status: Chronic Assessment and Plan: Chronic, does not appear in acute exacerbation clinically Echo as above Monitor clinically. HD to control fluid status. Plan to follow up with primary certified nuclear medicine technologist outpatient. Okay to stop tele (12) Encephalopathy: Code(s): G93.40 - Encephalopathy, unspecified Status: Acute Assessment and Plan: On 11/30/2024: Severely lethargic with a right side lean and associated right gaze. His voice was increasingly garbled and his responses were slow. Remained AOx3 with otherwise benign neuro exam. Likely metabolic vs drug induced (received morphine overnight) encephalopathy. - ABG: pH 7.538, pCO2 35.8, pO2 53.2, HCO3 29.8. Started on 2L NC for hypoxemia. - Lactic WNL. Procal elevated at 6.1. Glucose WNL. - Head CT 11/30: Unchanged small old infarcts in the right frontal lobe, abdelrahman, right lentiform nucleus and left thalamus. No acute intracranial process. Age- related changes including mild diffuse volume loss and moderate scattered white matter hypoattenuation consistent with chronic small vessel ischemic disease. Morphine was discontinued Monitor mental status. Plan Code status: Full code per patient DVT prophylaxis: SCD Subjective Date/time seen: 12/11/24 10:06 Interval history: Aspiration pneumonia, hypertension, high cholesterol Patient was seen during morning rounds today. No new overnight complaints. No shortness of breath or chest pain. No abdominal pain, nausea, vomiting. Review of Systems Review of Systems: 12 systems were reviewed and are negativ e except for as per HPI. All systems reviewed & are unremarkable except as noted in HPI and below Exam Narrative: AF 98.0 148/72 66 16 98% ra Gen - NARD lying flat in bed Chest - few basilar rhonchi o/w clear. nml RR CV - RRR S1/S2 with 2/6 systolic murmur heard t/o the precordium. Abd - Soft, NT/ND, Positive BS Ext - No pedal edema. left foot/ankle dressing clean, dry and intact. Distal pulses weak. Left upper arm thrill and bruit at fistual site Neuro - Alert and oriented x4. Garbled speech Psych - odd affect Skin - Warm and dry Objective Data Vital Signs Vital Signs: Vital Signs - 24 hr 12/10/24 10:26 12/10/24 14:31 12/10/24 14:41 Temperature 36.8 C Pulse Rate 75 71 Respiratory Rate 18 Blood Pressure 177/86 H 182/88 H Pulse Oximetry Oxygen Delivery Room Air 12/10/24 15:00 12/10/24 15:15 12/10/24 15:30 Temperature Pulse Rate 68 67 66 Respiratory Rate Blood Pressure 185/85 H 180/87 H 181/88 H Pulse Oximetry Oxygen Delivery 12/10/24 15:45 12/10/24 16:00 12/10/24 16:15 Temperature Pulse Rate 67 69 67 Respiratory Rate Blood Pressure 191/86 H 187/89 H 181/81 H Pulse Oximetry Oxygen Delivery 12/10/24 16:30 12/10/24 16:45 12/10/24 17:00 Temperature Pulse Rate 70 67 70 Respiratory Rate Blood Pressure 172/83 H 165/80 H 168/72 H Pulse Oximetry Oxygen Delivery 12/10/24 17:15 12/10/24 17:30 12/10/24 17:45 Temperature Pulse Rate 72 70 73 Respiratory Rate Blood Pressure 150/79 H 155/78 H 138/76 Pulse Oximetry Oxygen Delivery 12/10/24 18:00 12/10/24 18:11 12/10/24 18:18 Temperature 36.7 C Pulse Rate 74 69 71 Respiratory Rate 18 Blood Pressure 135/55 L 169/85 H 170/79 H Pulse Oximetry Oxygen Delivery 12/10/24 20:00 12/10/24 22:00 12/11/24 06:00 Temperature 36.3 C L 36.6 C Pulse Rate 74 74 Respiratory Rate 18 18 Blood Pressure 179/87 H 188/82 H Pulse Oximetry 98 98 Oxygen Delivery Room Air Intake/Output Intake/Output: Intake & Output 12/08/24 12/09/24 12/10/24 12/11/24 23:59 23:59 23:59 23:59 Intake Total 1350 300 100 Output Total 2150 3000 200 Balance -800 300 -2900 -200 Meds/Results Medications: Active Medications Generic Name Dose Route Start Last Admin Trade Name Freq PRN Reason Stop Dose Admin Amlodipine Besylate 10 mg 11/27/24 09:00 12/11/24 08:22 Amlodipine Besylate 10 Mg Tablet PO Not Given DAILY LILIAN Aspirin 300 mg 12/09/24 15:40 12/10/24 11:27 Aspirin 300 Mg Suppository RECTAL Not Given DAILY [facility] Atorvastatin Calcium 80 mg 11/27/24 09:00 12/11/24 08:22 Atorvastatin 40 Mg Tablet PO Not Given DAILY [facility] Carvedilol 25 mg 11/26/24 21:00 12/11/24 08:22 Carvedilol 25 Mg Tablet PO Not Given Q12HR [facility] Collagenase 1 applic 12/03/24 21:00 12/10/24 23:25 Collagenase Oint 30 Gm Tube TOPICAL Not Given Q12HR [facility] Dextrose 12.5 gm 11/30/24 16:34 12/11/24 01:42 Dextrose 50% 25 Gm/50 Ml Syringe IV PUSH 12.5 gm PRN PRN Administration Hypoglycemia Protocol Docusate Sodium 100 mg 11/26/24 17:00 12/11/24 08:23 Docusate Sodium 100 Mg Capsule PO Not Given BID [facility] Glucagon 1 mg 11/30/24 16:34 Glucagon For Inj 1 Mg Vial IM PRN PRN Hypoglycemia Protocol Glucose 15 gm 11/30/24 16:34 Glucose Oral Gel 15 Gm Of Glucse In 37.5 Gm Tube PO PRN PRN Hypoglycemia Protocol Hydralazine HCl 50 mg 11/26/24 17:00 11/30/24 12:49 Hydralazine Hcl 50 Mg Tablet PO Not Given TID [facility] Hydralazine HCl 10 mg 12/10/24 06:00 12/11/24 06:35 Hydralazine Hcl 20 Mg/Ml Vial IV PUSH 10 mg Q8HR LILIAN Administration Albumin Human 50 mls @ 999 mls/hr 11/27/24 06:51 Albutein IVPB 12/27/24 06:50 Q10M PRN HYPOTENSION Ibuprofen 800 mg in 200 mls @ 400 mls/hr 11/29/24 17:35 12/08/24 20:37 Caldolor 800 Mg/200 Ml IVPB 400 mls/hr Q6H PRN Administration Breakthrough Pain Rated 1-3 or NPO Dextrose 1,000 mls @ 100 mls/hr 11/30/24 16:34 Dextrose 5% 1,000 Ml IVPB PRN PRN Hypoglycemia Protocol Dextrose 1,000 mls @ 50 mls/hr 12/03/24 12:25 Dextrose 10% IV CONT .Q20H PRN if PN is interrupted Sodium Chloride 500 mls @ 10 mls/hr 12/10/24 07:30 12/10/24 10:44 Normal Saline Iv IV CONT Not Given .Q24H LILIAN Metronidazole 500 mg in 100 mls @ 100 mls/hr 12/10/24 19:00 12/11/24 04:07 Flagyl 500 Mg/Iso Soln 100 Ml IVPB 100 mls/hr Q8H LILIAN Administration Dextrose 1,000 mls @ 50 mls/hr 12/11/24 08:11 Dextrose 10% IV CONT .Q20H PRN if PN is interrupted Amino Acids/Electrolytes/Dextrose 1,000 mls @ 80 mls/hr 12/11/24 10:00 Clinimix E 4.25%/5% Solution IV CONT .[id number] [facility] Protocol Fat Emulsion Intravenous 250 mls @ 20.833 mls/hr 12/11/24 10:00 Lipids 20% IVPB Q24H [facility] Cefepime HCl 1 gm in 50 mls @ 100 mls/hr 12/11/24 18:00 Maxipime 1 Gm/Ns 50 Ml IVPB 1800 [facility] Insulin Aspart 2 - 5 units 12/01/24 00:00 12/11/24 06:43 Insulin Aspart (*Bkc) 100 Units/Ml SUB-Q Not Given Q6HR [facility] Protocol Naloxone HCl 0.1 mg 11/29/24 17:35 Naloxone Hcl 0.4 Mg/Ml Vial IV PUSH Q2M PRN Opiate Reversal Ondansetron HCl 4 mg 11/26/24 14:10 12/06/24 08:44 Ondansetron Inj 4 Mg/2 Ml Vial IV PUSH 4 mg Q4H PRN Administration Nausea Oxycodone/Acetaminophen 0.5 tablet 11/29/24 17:35 Oxycodone/Acetaminophen (*Crx) 5-325 Mg Tablet PO Q4H PRN Pain Rated 4-6 Pantoprazole Sodium 40 mg 12/02/24 12:00 12/11/24 08:23 Pantoprazole 40 Mg Tablet PO Not Given QAM [facility] Polyethylene Glycol 17 gm 11/30/24 09:00 12/11/24 08:23 Polyethylene Glycol 3350 17 Gm Powd.Pack PO Not Given QAM [facility] Senna/Docusate Sodium 2 tab 11/29/24 21:00 12/10/24 23:26 Senna/Docusate Sodium Tablet PO Not Given HS LILIAN Vancomycin HCl 1 each 11/26/24 13:16 Vancomycin For Hemodialysis IVPB PRN PRN Vancomycin Protocol Radiology Results: ITS Impressions Foot X-Ray 11/26/24 12:58 Impression: 1: Moderate soft tissue swelling of the second digit. The distal phalanx not well visualized. Cannot exclude osteomyelitis. 2: Extra-articular fracture left fifth proximal phalanx. Duplex Scan Lower Extremity Artery 11/26/24 13:53 IMPRESSION: 1. No evident hemodynamically significant stenosis either by follow-up elevation of peak systolic velocities or by direct visualization grayscale imaging with brisk systolic upstrokes arteries of the bilateral lower limbs. Head CT 11/30/24 12:22 IMPRESSION: 1. . 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 No acute intracranial process. 2. Age-related changes including mild diffuse volume loss and moderate scattered white matter hypoattenuation consistent with chronic small vessel ischemic disease. Chest X-Ray 11/30/24 12:37 IMPRESSION: 1. Opacities in the right mid and lower lung zones which could represent atelectasis, aspiration and/or pneumonia. 2. Small right pleural effusion. Foot MRI 12/05/24 13:43 IMPRESSION: Status post transmetatarsal amputation of the second digit. 2.4 x 1.8 x 3.3 cm peripherally enhancing fluid collection at the second interspace at the level the proximal metatarsal shafts is compatible with abscess. Diffuse myositis of the plantar musculature of the foot. No evidence for osteomyelitis or fracture. Susceptibility artifact at the operative bed and dorsal soft tissues at the second digit region could reflect artifact and/or open soft tissue wound. Correlate with physical exam. Modified Barium Swallow 12/07/24 09:32 IMPRESSION: Pharyngeal dysphagia with laryngeal penetration and aspiration. Please correlate with speech pathologist findings and specific feeding recommendations. Brain MRI 12/09/24 14:19 IMPRESSION: 1. Small focus of restricted diffusion at the dependent occipital horn of the left lateral ventricle, potentially additional tiny focus similar position on the right. Unclear where this is periventricular or intraventricular, the former consistent with acute infarction in the latter resulting concern for echogenic ventriculitis. Correlate clinically for signs/symptoms of infection. Findings were discussed with Lissette Shepard, the nurse caring for the patient, at 2:42 PM. 2. 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 3. Scattered periventricular and deep white matter predominant T2 hyperintensity consistent with chronic small vessel ischemic disease. There is also linear pattern of increased T2 signal extending transversely across the abdelrahman which could represent additional sequela of chronic small vessel ischemic disease although dissipation also suggests possibility of selected degeneration of the transverse pontine cerebellar tracks which can be seen in the setting of multiple system atrophy or spinocerebellar ataxia. Aorta w/Runoff CTA 12/10/24 15:30 IMPRESSION: Densely calcified atherosclerotic disease, left greater than right. The right superficial femoral artery demonstrates diffuse disease within the right thigh without a focal high-grade stenosis. Three-vessel runoff into the right calf with two-vessel runoff into the right foot. 50% stenosis of the left common femoral artery at its origin with a 40% stenosis of the left superficial femoral artery in the proximal thigh. High-grade stenosis of the left popliteal artery at its origin. Two-vessel runoff in the left calf and single diseased vessel runoff into the left foot. Perhaps improving the inflow (within the left common femoral, superficial femoral and popliteal arteries) may improve the blood supply to the left foot. IN ADDITION: Moderate right-sided pleural effusion with adjacent compressive atelectasis. Multiple subcentimeter nodules within the visualized portions of the bilateral lung bases, for which metastatic disease is suspected. Dedicated CT examination of the chest may be performed for further evaluation. Indeterminate focus adjacent to the fundus of the gallbladder within segment 4 of the liver (as detailed above) increased in size from 2020 examination for which focused ultrasound examination is recommended for further characterization, as this may simply be an extension of the bladder fundus. Indeterminate enhancement of the spleen, likely secondary to flow differentials. Significant distention of the urinary bladder (although not with contrast excretion) for which decompression is recommended. Labs Labs: Laboratory Results - last 24 hr 12/10/24 12/10/24 12/11/24 12:28 18:40 01:24 WBC RBC Hgb Hct MCV MCH MCHC RDW Plt Count MPV Immature Gran % (Auto) Neut % (Auto) Lymph % (Auto) [place] % (Auto) Eos % (Auto) Baso % (Auto) Lymph # (Auto) [place] # (Auto) Eos # (Auto) Baso # (Auto) Abs Immat Gran (auto) Absolute Neuts (auto) Absolute Nucleated RBC Nucleated RBC % APTT Sodium Potassium Chloride Carbon Dioxide Anion Gap BUN Creatinine Estim Creat Clear Calc Estimated GFR Glucose POC Capillary Glucose 78 76 71 Calcium Phosphorus Magnesium Transferrin Total Bilirubin AST ALT Alkaline Phosphatase Total Protein Albumin 12/11/24 12/11/24 12/11/24 02:11 05:50 06:41 WBC RBC Hgb Hct MCV MCH MCHC RDW Plt Count MPV Immature Gran % (Auto) Neut % (Auto) Lymph % (Auto) [place] % (Auto) Eos % (Auto) Baso % (Auto) Lymph # (Auto) [place] # (Auto) Eos # (Auto) Baso # (Auto) Abs Immat Gran (auto) Absolute Neuts (auto) Absolute Nucleated RBC Nucleated RBC % APTT Sodium 139 Potassium 4.3 Chloride 101 Carbon Dioxide 26 Anion Gap 12 BUN 26 H D Creatinine 4.56 H Estim Creat Clear Calc 18 Estimated GFR 13 L Glucose 84 POC Capillary Glucose 115 H 80 Calcium 8.3 L Phosphorus 6.0 H Magnesium 2.2 Transferrin Total Bilirubin 0.9 AST 24 ALT 14 Alkaline Phosphatase 100 Total Protein 7.6 Albumin 3.4 L 12/11/24 08:25 WBC 8.6 RBC 3.44 L Hgb 9.8 L Hct 32.1 L MCV 93.3 MCH 28.5 MCHC 30.5 L RDW 15.5 H Plt Count 276 MPV 9.9 Immature Gran % (Auto) 0.7 H Neut % (Auto) 77.4 H Lymph % (Auto) 10.1 L [place] % (Auto) 9.4 H Eos % (Auto) 1.5 Baso % (Auto) 0.9 Lymph # (Auto) 0.87 L [place] # (Auto) 0.8 H Eos # (Auto) 0.1 Baso # (Auto) 0.1 Abs Immat Gran (auto) 0.06 H Absolute Neuts (auto) 6.7 Absolute Nucleated RBC 0.000 Nucleated RBC % 0.0 APTT 36.4 Sodium 140 Potassium 4.5 Chloride 103 Carbon Dioxide 24 Anion Gap 13 H BUN 26 H Creatinine 4.38 H Estim Creat Clear Calc 18 Estimated GFR 14 L Glucose 84 POC Capillary Glucose Calcium 8.4 Phosphorus Magnesium 2.2 Transferrin 90 L Total Bilirubin 1.0 AST 26 ALT 14 Alkaline Phosphatase 104 Total Protein 7.7 Albumin 3.3 L Quality VTE Prophylaxis VTE prophylaxis: mechanical ordered
--- NOTE | 2024-12-11 10:20 | P.PNNP_ITS ---
Progress Note: A&P Assessment and Plan (1) End stage renal disease: Code(s): N18.6 - End stage renal disease Status: Chronic Assessment and Plan: * HD finished yesterday. He did okay. * volume status looks okay * potassium and BUN okay (2) Gangrene of toe of left foot: Code(s): I96 - Gangrene, not elsewhere classified Status: Acute Assessment and Plan: * as noted by clinical exam on admission * Surgery following * s/p open transmetatarsal amputation left 2nd toe (11/29) * MRI of left foot results reviewed -- see #4 * s/p excisional debridement of left foot (12/08) * on IV cefipime, vanco, and flagyl * The patient is afebrile. White cell count is normal. (3) Cellulitis of left foot: Code(s): L03.116 - Cellulitis of left lower limb Status: Acute Assessment and Plan: * as noted on presentation * likely a complication of diabetes and #2 * on above atbs (4) Bacteremia: Code(s): R78.81 - Bacteremia Status: Acute Assessment and Plan: * as noted: * blood cultures (11/26): MRSA * blood cultures (11/28): MRSA * blood cultures (12/01): MRSA (1 out of 2 sets) * blood cultures (12/02): no growth (2 of 2) * blood cultures (12/03): Staphylococcus aureus (1 out of 2 sets) * blood cultures (12/10) no growth to date * presumably related to #2 and #3 * results of KATLIN noted (12/01): * No evidence of infective endocarditis. The aortic valve is severely calcified with severe aortic stenosis with an ALBINO of 0.9cm2 by planimetry. * on cefipime, vanco, and flagyl * MRI of left foot (12/05) noted: * status post transmetatarsal amputation of the second digit * 2.4 x 1.8 x 3.3 cm peripherally enhancing fluid collection at the second interspace at the level the proximal metatarsal shafts is compatible with abscess * diffuse myositis of the plantar musculature of the foot * no evidence for osteomyelitis or fracture (5) Altered mental status: Code(s): R41.82 - Altered mental status, unspecified Status: Acute Assessment and Plan: * slow improvement noted (if not back to baseline) * still with noted dysarthria * initially noted this on morning of 11/30 * testing/evaluation noted at that time: * ABG: pH 7.538, pCO2 35.8, pO2 53.2, HCO3 29.8 * lactic normal; procalcitonin elevated at 6.1; glucose okay * CT of brain: unchanged small old infarcts in the right frontal lobe, abdelrahman, right lentiform nucleus and left thalamus; no acute intracranial process; age-related changes including mild diffuse volume loss and moderate scattered white matter hypoattenuation consistent with chronic small vessel ischemic disease * CXR: opacities in the right mid and lower lung zones which could represent atelectasis, aspiration and/or pneumonia; small right pleural effusion * MRI of brain today * pt seems to have a pretty good mental status. (6) Aspiration pneumonia: Code(s): J69.0 - Pneumonitis due to inhalation of food and vomit Status: Acute Assessment and Plan: * as suggested by CXR on 11/30 * on antibiotics * viral testing (COVID/RSV/influenza) negative * NPO as failed modified barium swallow x 3 * speech therapy following * started on PPN for nutritional support * may need PEG-tube * follow respiratory status * no sob and on 4L o2 * Patient is extremely upset about being NPO. He wants to eat anyway. I told him this would have to be between him and Dr Means. I did discuss with Dr. Means as well. He is going to talk with speech therapy and see where we stand. (7) Anemia: Code(s): D64.9 - Anemia, unspecified Status: Chronic Assessment and Plan: * due to ESRD with worsening due to acute illness/infection * hb 9 today * Epogen with HD (8) Heart failure with preserved ejection fraction: Qualifiers: Heart failure chronicity: unspecified Qualified Code(s): I50.30 - Unspecified diastolic (congestive) heart failure Code(s): I50.30 - Unspecified diastolic (congestive) heart failure Status: Chronic Assessment and Plan: * appears compensated * fluid removal with dialysis as tolerated to maintain euvolemia * continue supportive therapy (9) Hypertension: Qualifiers: Hypertension type: unspecified Qualified Code(s): I10 - Essential (primary) hypertension Code(s): I10 - Essential (primary) hypertension Status: Chronic Assessment and Plan: * Blood pressure had been good yesterday before dialysis but has been high since he started dialysis yesterday. Once it was down to 138 on dialysis but overnight was still 160s to 180s. His amlodipine is only been given occasionally, once held because of dialysis, and once held because he is NPO. * Hydralazine and carvedilol also held because he is NPO. * Will give clonidine patch. He can have hydralazine IV p.r.n. * Hopefully he will be able to swallow pills soon (10) Diabetes: Qualifiers: Diabetes mellitus type: type 2 Diabetes mellitus long term care social worker insulin use: without mcc use Diabetes mellitus complication status: with kidney complications Diabetes mellitus complication detail: with chronic kidney disease Chronic kidney disease stage: on chronic dialysis Qualified Code(s): E11.22 - Type 2 diabetes mellitus with diabetic chronic kidney disease; N18.6 - End stage renal disease; Z99.2 - Dependence on renal dialysis Code(s): E11.9 - Type 2 diabetes mellitus without complications Status: Chronic Assessment and Plan: * follow accu-cheks * glycemic control per hospitalist Subjective Date/time seen: 12/11/24 10:20 Interval history: Patient has no shortness of breath. He did well in dialysis yesterday. He is very upset about not being able to eat. Explained to him that this is because he failed a swallowing study. He does say that speech therapy saw him yesterday but does not know what they said. The more we talked about the more upset he became. Dr. Means came in the room as we were discussing. The patient continues to be upset spite of explanations. Exam Narrative: General: WD/WN male in NAD Heart: normal S1 and S2; no rub or gallop Lungs: clear anteriorly Abdomen: soft, nontender, nondistended, positive bowel sounds Extremities: no edema Skin: left foot dressings noted. Objective Data Vital Signs Vital Signs: Vital Signs - 24 hr 12/10/24 10:26 12/10/24 14:31 12/10/24 14:41 Temperature 98.2 F Pulse Rate 75 71 Respiratory Rate 18 Blood Pressure 177/86 H 182/88 H Pulse Oximetry Oxygen Delivery Room Air 12/10/24 15:00 12/10/24 15:15 12/10/24 15:30 Temperature Pulse Rate 68 67 66 Respiratory Rate Blood Pressure 185/85 H 180/87 H 181/88 H Pulse Oximetry Oxygen Delivery 12/10/24 15:45 12/10/24 16:00 12/10/24 16:15 Temperature Pulse Rate 67 69 67 Respiratory Rate Blood Pressure 191/86 H 187/89 H 181/81 H Pulse Oximetry Oxygen Delivery 12/10/24 16:30 12/10/24 16:45 12/10/24 17:00 Temperature Pulse Rate 70 67 70 Respiratory Rate Blood Pressure 172/83 H 165/80 H 168/72 H Pulse Oximetry Oxygen Delivery 12/10/24 17:15 12/10/24 17:30 12/10/24 17:45 Temperature Pulse Rate 72 70 73 Respiratory Rate Blood Pressure 150/79 H 155/78 H 138/76 Pulse Oximetry Oxygen Delivery 12/10/24 18:00 12/10/24 18:11 12/10/24 18:18 Temperature 98.1 F Pulse Rate 74 69 71 Respiratory Rate 18 Blood Pressure 135/55 L 169/85 H 170/79 H Pulse Oximetry Oxygen Delivery 12/10/24 20:00 12/10/24 22:00 12/11/24 06:00 Temperature 97.3 F L 97.9 F Pulse Rate 74 74 Respiratory Rate 18 18 Blood Pressure 179/87 H 188/82 H Pulse Oximetry 98 98 Oxygen Delivery Room Air Intake/Output Intake/Output: Intake & Output 12/08/24 12/09/24 12/10/24 12/11/24 23:59 23:59 23:59 23:59 Intake Total 1350 300 100 Output Total 2150 3000 200 Balance -800 300 -2900 -200 Meds/Results Medications: Active Medications Generic Name Dose Route Start Last Admin Trade Name Freq PRN Reason Stop Dose Admin Amlodipine Besylate 10 mg 11/27/24 09:00 12/11/24 08:22 Amlodipine Besylate 10 Mg Tablet PO Not Given DAILY [facility] Aspirin 300 mg 12/09/24 15:40 12/10/24 11:27 Aspirin 300 Mg Suppository RECTAL Not Given DAILY [facility] Atorvastatin Calcium 80 mg 11/27/24 09:00 12/11/24 08:22 Atorvastatin 40 Mg Tablet PO Not Given DAILY [facility] Carvedilol 25 mg 11/26/24 21:00 12/11/24 08:22 Carvedilol 25 Mg Tablet PO Not Given Q12HR [facility] Collagenase 1 applic 12/03/24 21:00 12/10/24 23:25 Collagenase Oint 30 Gm Tube TOPICAL Not Given Q12HR [facility] Dextrose 12.5 gm 11/30/24 16:34 12/11/24 01:42 Dextrose 50% 25 Gm/50 Ml Syringe IV PUSH 12.5 gm PRN PRN Administration Hypoglycemia Protocol Docusate Sodium 100 mg 11/26/24 17:00 12/11/24 08:23 Docusate Sodium 100 Mg Capsule PO Not Given BID [facility] Glucagon 1 mg 11/30/24 16:34 Glucagon For Inj 1 Mg Vial IM PRN PRN Hypoglycemia Protocol Glucose 15 gm 11/30/24 16:34 Glucose Oral Gel 15 Gm Of Glucse In 37.5 Gm Tube PO PRN PRN Hypoglycemia Protocol Hydralazine HCl 50 mg 11/26/24 17:00 11/30/24 12:49 Hydralazine Hcl 50 Mg Tablet PO Not Given TID [facility] Hydralazine HCl 10 mg 12/10/24 06:00 12/11/24 06:35 Hydralazine Hcl 20 Mg/Ml Vial IV PUSH 10 mg Q8HR LILIAN Administration Albumin Human 50 mls @ 999 mls/hr 11/27/24 06:51 Albutein IVPB 12/27/24 06:50 Q10M PRN HYPOTENSION Ibuprofen 800 mg in 200 mls @ 400 mls/hr 11/29/24 17:35 12/08/24 20:37 Caldolor 800 Mg/200 Ml IVPB 400 mls/hr Q6H PRN Administration Breakthrough Pain Rated 1-3 or NPO Dextrose 1,000 mls @ 100 mls/hr 11/30/24 16:34 Dextrose 5% 1,000 Ml IVPB PRN PRN Hypoglycemia Protocol Dextrose 1,000 mls @ 50 mls/hr 12/03/24 12:25 Dextrose 10% IV CONT .Q20H PRN if PN is interrupted Sodium Chloride 500 mls @ 10 mls/hr 12/10/24 07:30 12/10/24 10:44 Normal Saline Iv IV CONT Not Given .Q24H [facility] Metronidazole 500 mg in 100 mls @ 100 mls/hr 12/10/24 19:00 12/11/24 04:07 Flagyl 500 Mg/Iso Soln 100 Ml IVPB 100 mls/hr Q8H LILIAN Administration Dextrose 1,000 mls @ 50 mls/hr 12/11/24 08:11 Dextrose 10% IV CONT .Q20H PRN if PN is interrupted Amino Acids/Electrolytes/Dextrose 1,000 mls @ 80 mls/hr 12/11/24 10:00 Clinimix E 4.25%/5% Solution IV CONT .[id number] [facility] Protocol Fat Emulsion Intravenous 250 mls @ 20.833 mls/hr 12/11/24 10:00 Lipids 20% IVPB Q24H [facility] Cefepime HCl 1 gm in 50 mls @ 100 mls/hr 12/11/24 18:00 Maxipime 1 Gm/Ns 50 Ml IVPB 1800 [facility] Insulin Aspart 2 - 5 units 12/01/24 00:00 12/11/24 06:43 Insulin Aspart (*Bkc) 100 Units/Ml SUB-Q Not Given Q6HR [facility] Protocol Naloxone HCl 0.1 mg 11/29/24 17:35 Naloxone Hcl 0.4 Mg/Ml Vial IV PUSH Q2M PRN Opiate Reversal Ondansetron HCl 4 mg 11/26/24 14:10 12/06/24 08:44 Ondansetron Inj 4 Mg/2 Ml Vial IV PUSH 4 mg Q4H PRN Administration Nausea Oxycodone/Acetaminophen 0.5 tablet 11/29/24 17:35 Oxycodone/Acetaminophen (*Crx) 5-325 Mg Tablet PO Q4H PRN Pain Rated 4-6 Pantoprazole Sodium 40 mg 12/02/24 12:00 12/11/24 08:23 Pantoprazole 40 Mg Tablet PO Not Given QAM LILIAN Polyethylene Glycol 17 gm 11/30/24 09:00 12/11/24 08:23 Polyethylene Glycol 3350 17 Gm Powd.Pack PO Not Given QAM [facility] Senna/Docusate Sodium 2 tab 11/29/24 21:00 12/10/24 23:26 Senna/Docusate Sodium Tablet PO Not Given HS [facility] Vancomycin HCl 1 each 11/26/24 13:16 Vancomycin For Hemodialysis IVPB PRN PRN Vancomycin Protocol Radiology Results: ITS Impressions Foot X-Ray 11/26/24 12:58 Impression: 1: Moderate soft tissue swelling of the second digit. The distal phalanx not well visualized. Cannot exclude osteomyelitis. 2: Extra-articular fracture left fifth proximal phalanx. Duplex Scan Lower Extremity Artery 11/26/24 13:53 IMPRESSION: 1. No evident hemodynamically significant stenosis either by follow-up elevation of peak systolic velocities or by direct visualization grayscale imaging with brisk systolic upstrokes arteries of the bilateral lower limbs. Head CT 11/30/24 12:22 IMPRESSION: 1. . 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 No acute intracranial process. 2. Age-related changes including mild diffuse volume loss and moderate scattered white matter hypoattenuation consistent with chronic small vessel ischemic disease. Chest X-Ray 11/30/24 12:37 IMPRESSION: 1. Opacities in the right mid and lower lung zones which could represent atelectasis, aspiration and/or pneumonia. 2. Small right pleural effusion. Foot MRI 12/05/24 13:43 IMPRESSION: Status post transmetatarsal amputation of the second digit. 2.4 x 1.8 x 3.3 cm peripherally enhancing fluid collection at the second interspace at the level the proximal metatarsal shafts is compatible with abscess. Diffuse myositis of the plantar musculature of the foot. No evidence for osteomyelitis or fracture. Susceptibility artifact at the operative bed and dorsal soft tissues at the second digit region could reflect artifact and/or open soft tissue wound. Correlate with physical exam. Modified Barium Swallow 12/07/24 09:32 IMPRESSION: Pharyngeal dysphagia with laryngeal penetration and aspiration. Please correlate with speech pathologist findings and specific feeding recommendations. Brain MRI 12/09/24 14:19 IMPRESSION: 1. Small focus of restricted diffusion at the dependent occipital horn of the left lateral ventricle, potentially additional tiny focus similar position on the right. Unclear where this is periventricular or intraventricular, the former consistent with acute infarction in the latter resulting concern for echogenic ventriculitis. Correlate clinically for signs/symptoms of infection. Findings were discussed with Lissette Shepard, the nurse caring for the patient, at 2:42 PM. 2. 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 3. Scattered periventricular and deep white matter predominant T2 hyperintensity consistent with chronic small vessel ischemic disease. There is also linear pattern of increased T2 signal extending transversely across the abdelrahman which could represent additional sequela of chronic small vessel ischemic disease although dissipation also suggests possibility of selected degeneration of the transverse pontine cerebellar tracks which can be seen in the setting of multiple system atrophy or spinocerebellar ataxia. Aorta w/Runoff CTA 12/10/24 15:30 IMPRESSION: Densely calcified atherosclerotic disease, left greater than right. The right superficial femoral artery demonstrates diffuse disease within the right thigh without a focal high-grade stenosis. Three-vessel runoff into the right calf with two-vessel runoff into the right foot. 50% stenosis of the left common femoral artery at its origin with a 40% stenosis of the left superficial femoral artery in the proximal thigh. High-grade stenosis of the left popliteal artery at its origin. Two-vessel runoff in the left calf and single diseased vessel runoff into the left foot. Perhaps improving the inflow (within the left common femoral, superficial femoral and popliteal arteries) may improve the blood supply to the left foot. IN ADDITION: Moderate right-sided pleural effusion with adjacent compressive atelectasis. Multiple subcentimeter nodules within the visualized portions of the bilateral lung bases, for which metastatic disease is suspected. Dedicated CT examination of the chest may be performed for further evaluation. Indeterminate focus adjacent to the fundus of the gallbladder within segment 4 of the liver (as detailed above) increased in size from 2020 examination for which focused ultrasound examination is recommended for further characterization, as this may simply be an extension of the bladder fundus. Indeterminate enhancement of the spleen, likely secondary to flow differentials. Significant distention of the urinary bladder (although not with contrast excretion) for which decompression is recommended. Labs Labs: Laboratory Results - last 24 hr 12/10/24 12/10/24 12/11/24 12:28 18:40 01:24 WBC RBC Hgb Hct MCV MCH MCHC RDW Plt Count MPV Immature Gran % (Auto) Neut % (Auto) Lymph % (Auto) Walton % (Auto) Eos % (Auto) Baso % (Auto) Lymph # (Auto) Walton # (Auto) Eos # (Auto) Baso # (Auto) Abs Immat Gran (auto) Absolute Neuts (auto) Absolute Nucleated RBC Nucleated RBC % APTT Sodium Potassium Chloride Carbon Dioxide Anion Gap BUN Creatinine Estim Creat Clear Calc Estimated GFR Glucose POC Capillary Glucose 78 76 71 Calcium Phosphorus Magnesium Transferrin Total Bilirubin AST ALT Alkaline Phosphatase Total Protein Albumin 12/11/24 12/11/24 12/11/24 02:11 05:50 06:41 WBC RBC Hgb Hct MCV MCH MCHC RDW Plt Count MPV Immature Gran % (Auto) Neut % (Auto) Lymph % (Auto) Walton % (Auto) Eos % (Auto) Baso % (Auto) Lymph # (Auto) Walton # (Auto) Eos # (Auto) Baso # (Auto) Abs Immat Gran (auto) Absolute Neuts (auto) Absolute Nucleated RBC Nucleated RBC % APTT Sodium 139 Potassium 4.3 Chloride 101 Carbon Dioxide 26 Anion Gap 12 BUN 26 H D Creatinine 4.56 H Estim Creat Clear Calc 18 Estimated GFR 13 L Glucose 84 POC Capillary Glucose 115 H 80 Calcium 8.3 L Phosphorus 6.0 H Magnesium 2.2 Transferrin Total Bilirubin 0.9 AST 24 ALT 14 Alkaline Phosphatase 100 Total Protein 7.6 Albumin 3.4 L 12/11/24 08:25 WBC 8.6 RBC 3.44 L Hgb 9.8 L Hct 32.1 L MCV 93.3 MCH 28.5 MCHC 30.5 L RDW 15.5 H Plt Count 276 MPV 9.9 Immature Gran % (Auto) 0.7 H Neut % (Auto) 77.4 H Lymph % (Auto) 10.1 L Walton % (Auto) 9.4 H Eos % (Auto) 1.5 Baso % (Auto) 0.9 Lymph # (Auto) 0.87 L Walton # (Auto) 0.8 H Eos # (Auto) 0.1 Baso # (Auto) 0.1 Abs Immat Gran (auto) 0.06 H Absolute Neuts (auto) 6.7 Absolute Nucleated RBC 0.000 Nucleated RBC % 0.0 APTT 36.4 Sodium 140 Potassium 4.5 Chloride 103 Carbon Dioxide 24 Anion Gap 13 H BUN 26 H Creatinine 4.38 H Estim Creat Clear Calc 18 Estimated GFR 14 L Glucose 84 POC Capillary Glucose Calcium 8.4 Phosphorus Magnesium 2.2 Transferrin 90 L Total Bilirubin 1.0 AST 26 ALT 14 Alkaline Phosphatase 104 Total Protein 7.7 Albumin 3.3 L
--- NOTE | 2024-12-11 11:32 | PCPTNOTE ---
talked with JC Martínez about pt. He is not cooperating with treatment, wants to eat and may be going Hospice. PT makenna not performed this date.
--- NOTE | 2024-12-11 12:21 | PC.NURSE ---
Addendum entered by Lissette Shepard RN 12/11/24 12:25: hospitalist aware. Original Note: Patient refusing medications and blood sugar checks. Hospice consult initiated
--- NOTE | 2024-12-11 12:32 | WPDNEURCNPN ---
Assessment and Plan Assessment and plan (1) T2 hyperintense foci present in abdelrahman on magnetic resonance imaging: Code(s): R90.89 - Other abnormal findings on diagnostic imaging of central nervous system Status: Acute (2) Dysphagia: Code(s): R13.10 - Dysphagia, unspecified Status: Acute (3) Aortic stenosis: Code(s): I35.0 - Nonrheumatic aortic (valve) stenosis Status: Acute (4) Gangrene of toe of left foot: Code(s): I96 - Gangrene, not elsewhere classified Status: Acute (5) End-stage renal disease needing dialysis: Code(s): N18.6 - End stage renal disease; Z99.2 - Dependence on renal dialysis Status: Acute (6) Type 2 diabetes mellitus: Code(s): E11.9 - Type 2 diabetes mellitus without complications Status: Acute Plan Considering the whole scenario, considering he is receiving the broad-spectrum antibiotic as such, and considering the patient's status, will prefer the spinal fluid studies to clarify the situation but again he is receiving the broad-spectrum antibiotic and his exam is fairly nonfocal at this particular time, the spinal fluid 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 if you have any questions please do not hesitate to contact me thank, in the meantime he can be continued on the treatment as such. Consult date: 12/11/24 HPI: Savage Yun is a 59 year old maleHas been admitted to the hospital through the emergency on November 26, 2024 with ongoing history of 1. End-stage renal disease requiring dialysis 2. Hypertension 3. Diabetes mellitus 4. Previous cerebrovascular accident and 5. Congestive heart failure . During the hospitalization has been seen by general surgeon human service specialist retail coverage merchandiser lead, and most recently neurosurgeon. Patient has been receiving multiple medications for his medical care in addition to Flagyl intact venous q.8 hours cefepime Q 24hour. Recently had an MRI of the brain on December 09, 2024 which was reportedly abnormal because small focus of restricted diffusion at the dependent occipital horn of the left lateral ventricle with additional tiny focus on similar position on the right side also unclear whether it was periventricular or intraventricular raising the possibility of infection that is ventriculitis. Patient was noted to have abnormalities at the level of the abdelrahman which were unclear greater on the basis of chronic small vessel ischemic disease or else. as per neurosurgical service of perineum ventriculitis extremely unlikely for all the factors listed but considering his chronic course of bacteremia his spinal tap could be considered or else follow-up MRI. For that reason neurology consultation has been obtained. Review of Systems Review of Systems: All systems reviewed & are unremarkable except as noted in HPI and below [facility] Past Medical History Medical History Aortic stenosis mod to severe Tobacco abuse Elevated d-dimer Heart failure with preserved ejection fraction Echo in November 2022 showed normal LV size and function with an EF of 50 to 55%, mildly increased left ventricular wall thickness, and grade 2 diastolic dysfunction. 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 Cerebrovascular accident (02/2019) Anxiety Hyperlipidemia Hypertension Surgical History Surgical History History of cardiac catheterization (2019) History of colonoscopy with polypectomy Family History Family History Mother Carcinoma of colon Father Family history of diabetes mellitus in first degree relative Grandparent Diabetes mellitus Social History Social History Social History: Surrogate medical decision maker: Raina Yun, sibling. Code status: Do not resuscitate. Smoking packs per day: 0.5 Smoking cigarettes per day: 10.0 Years smoked: 40 Smoking pack-years: 20.00 Smoking status: Current every day smoker Alcohol intake: never Substance use: never Substance use type: does not use Do You Feel Safe in your Home?: Yes Lack of Transportation: YES Lack of Food: Never True Current Housing: I Have Housing Concerned About Future Housing: No Difficulty Paying Gas/Electric Bills: No Difficulty Paying for Meds: No Currently Unemployed: No Education: High School Diploma/GED Difficulty w/ Childcare or Family Care: No Living arrangements: with family Additional living arrangements comments: Lives in [place]. Has 4 children. Retired [employer]. Additional occupation/education comments: [employer]. Spiritual care concerns: No Meds Home Medications and Allergies Home Medications ?Medication ?Instructions ?Recorded ?Confirmed ?Type amlodipine 10 mg tablet 10 mg PO DAILY 01/25/22 11/26/24 History atorvastatin 80 mg tablet 80 mg PO DAILY 01/25/22 11/26/24 History carvedilol 25 mg tablet 25 mg PO BID 01/25/22 11/26/24 History clopidogrel 75 mg tablet 75 mg PO DAILY 01/25/22 11/26/24 History hydralazine 50 mg tablet 50 mg PO TID 08/11/23 11/26/24 History Allergies Allergy/AdvReac Type Severity Reaction Status Date / Time tree nut Allergy Intermediate Itching Verified 12/10/24 08:10 Penicillins Allergy Unknown Unknown Verified 12/10/24 08:10 Vital Signs Vital Signs - 24 hr 12/10/24 14:31 12/10/24 14:41 12/10/24 15:00 Temperature 36.8 C Pulse Rate 75 71 68 Respiratory Rate 18 Blood Pressure 177/86 H 182/88 H 185/85 H Pulse Oximetry Oxygen Delivery 12/10/24 15:15 12/10/24 15:30 12/10/24 15:45 Temperature Pulse Rate 67 66 67 Respiratory Rate Blood Pressure 180/87 H 181/88 H 191/86 H Pulse Oximetry Oxygen Delivery 12/10/24 16:00 12/10/24 16:15 12/10/24 16:30 Temperature Pulse Rate 69 67 70 Respiratory Rate Blood Pressure 187/89 H 181/81 H 172/83 H Pulse Oximetry Oxygen Delivery 12/10/24 16:45 12/10/24 17:00 12/10/24 17:15 Temperature Pulse Rate 67 70 72 Respiratory Rate Blood Pressure 165/80 H 168/72 H 150/79 H Pulse Oximetry Oxygen Delivery 12/10/24 17:30 12/10/24 17:45 12/10/24 18:00 Temperature Pulse Rate 70 73 74 Respiratory Rate Blood Pressure 155/78 H 138/76 135/55 L Pulse Oximetry Oxygen Delivery 12/10/24 18:11 12/10/24 18:18 12/10/24 20:00 Temperature 36.7 C Pulse Rate 69 71 Respiratory Rate 18 Blood Pressure 169/85 H 170/79 H Pulse Oximetry Oxygen Delivery Room Air 12/10/24 22:00 12/11/24 06:00 12/11/24 08:00 Temperature 36.3 C L 36.6 C Pulse Rate 74 74 Respiratory Rate 18 18 Blood Pressure 179/87 H 188/82 H Pulse Oximetry 98 98 Oxygen Delivery Room Air Exam Narrative: On exam today he is awake alert at times cooperative and at times uncooperative, his sister open to be in the room were reported to me that he is tired, he is alert when he wants follows instructions fairly well, neck supple, heart regular, lungs clear neurologically he is awake alert wants to follow the instruction when he wants to, his speech is not dysarthric when he talked, he is able to move his head from side to side and anteroposteriorly pupils round regular, fieldsof the vision full to threat stimuli, there is no nystagmus, face symmetric, tongue in oral cavity, and motor examination reveals him to fairly nonfocal with sluggish reflexes and downgoing plantar responses. He did not stand or walk ,his sister reported reported he will not pursue further for exam any more at this time he closed his eyes and refused to pursue further. Results Labs 12/11/24 08:25 12/11/24 08:25 Labs: Short CBC 12/11/24 Range/Units 08:25 WBC 8.6 (4.5-10.0) K/mm3 Hgb 9.8 L (14.0-18.0) g/dL Hct 32.1 L (42.0-52.0) % Plt Count 276 (150-375) k/mm3 [facility] 12/11/24 12/11/24 05:50 08:25 Sodium 139 140 Potassium 4.3 4.5 Chloride 101 103 Carbon Dioxide 26 24 BUN 26 H D 26 H Creatinine 4.56 H 4.38 H Glucose 84 84 Calcium 8.3 L 8.4 Liver Function 12/11/24 12/11/24 Range/Units 05:50 08:25 Total Bilirubin 0.9 1.0 (0.2-1.3) mg/dL AST 24 26 (17-59) U/L ALT 14 14 (6-50) U/L Alkaline Phosphatase 100 104 (38-126) U/L Albumin 3.4 L 3.3 L (3.5-5.1) g/dL
--- NOTE | 2024-12-11 12:46 | PCOTNOTE ---
Addendum entered by Licha Heck, OT 12/11/24 12:51: If and when pt. appropriate to be seen. Pt. will need weight bearing status on post operative foot to which nursing agreeable to contact provider regarding Original Note: Spoke with nurse, who requests pt. be seen at later time as she is awaiting communication with hospitalist and pt. family regarding possible changes to plan of care. Following
[2024-12-11 14:00] VITALS: BP 159/66; PULSE 97; RESP 16; TEMP 36.9; O2SAT 100
--- NOTE | 2024-12-11 15:07 | P.PNGS_ITS ---
Progress Note: A&P Assessment and Plan (1) Necrotizing soft tissue infection: Code(s): M79.89 - Other specified soft tissue disorders Status: Acute Assessment and Plan: * Patient awaiting Hospice evaluation. * Will discuss any other treatment if patient declines hospice, otherwise continue current treatment for the time being. (2) MRSA bacteremia: Code(s): R78.81 - Bacteremia; B95.62 - Methicillin resistant Staphylococcus aureus infection as the cause of diseases classified elsewhere Status: Acute (3) Diabetic infection of left foot: Code(s): E11.628 - Type 2 diabetes mellitus with other skin complications; L08.9 - Local infection of the skin and subcutaneous tissue, unspecified Status: Acute (4) Peripheral vascular disease in diabetes mellitus: Code(s): E11.51 - Type 2 diabetes mellitus with diabetic peripheral angiopathy without gangrene Status: Chronic Subjective Subjective Date/Time Seen: 12/11/24 15:07 Interval history: Patient awaiting Hospice evaluation. Does not want to discuss any other treatment at this time. Exam Extrem: Left lower extremity: foot (Except for the most distal aspect, wound looks better, pink, healing) Details: tenderness; no ecchymosis and no crepitus Objective Data Vital Signs Vital Signs: Vital Signs - 24 hr 12/10/24 15:15 12/10/24 15:30 12/10/24 15:45 Temperature Pulse Rate 67 66 67 Respiratory Rate Blood Pressure 180/87 H 181/88 H 191/86 H Pulse Oximetry Oxygen Delivery 12/10/24 16:00 12/10/24 16:15 12/10/24 16:30 Temperature Pulse Rate 69 67 70 Respiratory Rate Blood Pressure 187/89 H 181/81 H 172/83 H Pulse Oximetry Oxygen Delivery 12/10/24 16:45 12/10/24 17:00 12/10/24 17:15 Temperature Pulse Rate 67 70 72 Respiratory Rate Blood Pressure 165/80 H 168/72 H 150/79 H Pulse Oximetry Oxygen Delivery 12/10/24 17:30 12/10/24 17:45 12/10/24 18:00 Temperature Pulse Rate 70 73 74 Respiratory Rate Blood Pressure 155/78 H 138/76 135/55 L Pulse Oximetry Oxygen Delivery 12/10/24 18:11 12/10/24 18:18 12/10/24 20:00 Temperature 98.1 F Pulse Rate 69 71 Respiratory Rate 18 Blood Pressure 169/85 H 170/79 H Pulse Oximetry Oxygen Delivery Room Air 12/10/24 22:00 12/11/24 06:00 12/11/24 08:00 Temperature 97.3 F L 97.9 F Pulse Rate 74 74 Respiratory Rate 18 18 Blood Pressure 179/87 H 188/82 H Pulse Oximetry 98 98 Oxygen Delivery Room Air Intake/Output Intake/Output: Intake & Output 12/08/24 12/09/24 12/10/24 12/11/24 23:59 23:59 23:59 23:59 Intake Total 1350 300 100 Output Total 2150 3000 200 Balance -800 300 -2900 -200 Meds/Results Medications: Active Medications Generic Name Dose Route Start Last Admin Trade Name Freq PRN Reason Stop Dose Admin Amlodipine Besylate 10 mg 11/27/24 09:00 12/11/24 08:22 Amlodipine Besylate 10 Mg Tablet PO Not Given DAILY [facility] Aspirin 300 mg 12/09/24 15:40 12/11/24 12:19 Aspirin 300 Mg Suppository RECTAL Not Given DAILY [facility] Atorvastatin Calcium 80 mg 11/27/24 09:00 12/11/24 08:22 Atorvastatin 40 Mg Tablet PO Not Given DAILY [facility] Carvedilol 25 mg 11/26/24 21:00 12/11/24 08:22 Carvedilol 25 Mg Tablet PO Not Given Q12HR [facility] Clonidine HCl 1 patch 12/11/24 09:00 Clonidine 0.2 Mg/24 Hr Patch TRANSDERM WEEKLY [facility] Collagenase 1 applic 12/03/24 21:00 12/10/24 23:25 Collagenase Oint 30 Gm Tube TOPICAL Not Given Q12HR [facility] Dextrose 12.5 gm 11/30/24 16:34 12/11/24 01:42 Dextrose 50% 25 Gm/50 Ml Syringe IV PUSH 12.5 gm PRN PRN Administration Hypoglycemia Protocol Docusate Sodium 100 mg 11/26/24 17:00 12/11/24 13:04 Docusate Sodium 100 Mg Capsule PO Not Given BID [facility] Glucagon 1 mg 11/30/24 16:34 Glucagon For Inj 1 Mg Vial IM PRN PRN Hypoglycemia Protocol Glucose 15 gm 11/30/24 16:34 Glucose Oral Gel 15 Gm Of Glucse In 37.5 Gm Tube PO PRN PRN Hypoglycemia Protocol Hydralazine HCl 50 mg 11/26/24 17:00 11/30/24 12:49 Hydralazine Hcl 50 Mg Tablet PO Not Given TID LILIAN Hydralazine HCl 10 mg 12/10/24 06:00 12/11/24 06:35 Hydralazine Hcl 20 Mg/Ml Vial IV PUSH 10 mg Q8HR LILIAN Administration Albumin Human 50 mls @ 999 mls/hr 11/27/24 06:51 Albutein IVPB 12/27/24 06:50 Q10M PRN HYPOTENSION Ibuprofen 800 mg in 200 mls @ 400 mls/hr 11/29/24 17:35 12/08/24 20:37 Caldolor 800 Mg/200 Ml IVPB 400 mls/hr Q6H PRN Administration Breakthrough Pain Rated 1-3 or NPO Dextrose 1,000 mls @ 100 mls/hr 11/30/24 16:34 Dextrose 5% 1,000 Ml IVPB PRN PRN Hypoglycemia Protocol Dextrose 1,000 mls @ 50 mls/hr 12/03/24 12:25 Dextrose 10% IV CONT .Q20H PRN if PN is interrupted Sodium Chloride 500 mls @ 10 mls/hr 12/10/24 07:30 12/10/24 10:44 Normal Saline Iv IV CONT Not Given .Q24H [facility] Metronidazole 500 mg in 100 mls @ 100 mls/hr 12/10/24 19:00 12/11/24 12:19 Flagyl 500 Mg/Iso Soln 100 Ml IVPB Not Given Q8H [facility] Dextrose 1,000 mls @ 50 mls/hr 12/11/24 08:11 Dextrose 10% IV CONT .Q20H PRN if PN is interrupted Amino Acids/Electrolytes/Dextrose 1,000 mls @ 80 mls/hr 12/11/24 10:00 Clinimix E 4.25%/5% Solution IV CONT .[id number] [facility] Protocol Fat Emulsion Intravenous 250 mls @ 20.833 mls/hr 12/11/24 10:00 Lipids 20% IVPB Q24H [facility] Cefepime HCl 1 gm in 50 mls @ 100 mls/hr 12/11/24 18:00 Maxipime 1 Gm/Ns 50 Ml IVPB 1800 [facility] Insulin Aspart 2 - 5 units 12/01/24 00:00 12/11/24 12:20 Insulin Aspart (*Bkc) 100 Units/Ml SUB-Q Not Given Q6HR [facility] Protocol Naloxone HCl 0.1 mg 11/29/24 17:35 Naloxone Hcl 0.4 Mg/Ml Vial IV PUSH Q2M PRN Opiate Reversal Ondansetron HCl 4 mg 11/26/24 14:10 12/06/24 08:44 Ondansetron Inj 4 Mg/2 Ml Vial IV PUSH 4 mg Q4H PRN Administration Nausea Oxycodone/Acetaminophen 0.5 tablet 11/29/24 17:35 Oxycodone/Acetaminophen (*Crx) 5-325 Mg Tablet PO Q4H PRN Pain Rated 4-6 Pantoprazole Sodium 40 mg 12/02/24 12:00 12/11/24 08:23 Pantoprazole 40 Mg Tablet PO Not Given QAM [facility] Polyethylene Glycol 17 gm 11/30/24 09:00 12/11/24 08:23 Polyethylene Glycol 3350 17 Gm Powd.Pack PO Not Given QAM [facility] Senna/Docusate Sodium 2 tab 11/29/24 21:00 12/10/24 23:26 Senna/Docusate Sodium Tablet PO Not Given HS [facility] Vancomycin HCl 1 each 11/26/24 13:16 Vancomycin For Hemodialysis IVPB PRN PRN Vancomycin Protocol Radiology Results: ITS Impressions Foot X-Ray 11/26/24 12:58 Impression: 1: Moderate soft tissue swelling of the second digit. The distal phalanx not well visualized. Cannot exclude osteomyelitis. 2: Extra-articular fracture left fifth proximal phalanx. Duplex Scan Lower Extremity Artery 11/26/24 13:53 IMPRESSION: 1. No evident hemodynamically significant stenosis either by follow-up elevation of peak systolic velocities or by direct visualization grayscale imaging with brisk systolic upstrokes arteries of the bilateral lower limbs. Head CT 11/30/24 12:22 IMPRESSION: 1. . 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 No acute intracranial process. 2. Age-related changes including mild diffuse volume loss and moderate scattered white matter hypoattenuation consistent with chronic small vessel ischemic disease. Chest X-Ray 11/30/24 12:37 IMPRESSION: 1. Opacities in the right mid and lower lung zones which could represent a telectasis, aspiration and/or pneumonia. 2. Small right pleural effusion. Foot MRI 12/05/24 13:43 IMPRESSION: Status post transmetatarsal amputation of the second digit. 2.4 x 1.8 x 3.3 cm peripherally enhancing fluid collection at the second interspace at the level the proximal metatarsal shafts is compatible with abscess. Diffuse myositis of the plantar musculature of the foot. No evidence for osteomyelitis or fracture. Susceptibility artifact at the operative bed and dorsal soft tissues at the second digit region could reflect artifact and/or open soft tissue wound. Correlate with physical exam. Modified Barium Swallow 12/07/24 09:32 IMPRESSION: Pharyngeal dysphagia with laryngeal penetration and aspiration. Please correlate with speech pathologist findings and specific feeding recommendations. Brain MRI 12/09/24 14:19 IMPRESSION: 1. Small focus of restricted diffusion at the dependent occipital horn of the left lateral ventricle, potentially additional tiny focus similar position on the right. Unclear where this is periventricular or intraventricular, the former consistent with acute infarction in the latter resulting concern for echogenic ventriculitis. Correlate clinically for signs/symptoms of infection. Findings were discussed with Lissette Shepard, the nurse caring for the patient, at 2:42 PM. 2. 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 3. Scattered periventricular and deep white matter predominant T2 hyperintensity consistent with chronic small vessel ischemic disease. There is also linear pattern of increased T2 signal extending transversely across the abdelrahman which could represent additional sequela of chronic small vessel ischemic disease although dissipation also suggests possibility of selected degeneration of the transverse pontine cerebellar tracks which can be seen in the setting of multiple system atrophy or spinocerebellar ataxia. Aorta w/Runoff CTA 12/10/24 15:30 IMPRESSION: Densely calcified atherosclerotic disease, left greater than right. The right superficial femoral artery demonstrates diffuse disease within the right thigh without a focal high-grade stenosis. Three-vessel runoff into the right calf with two-vessel runoff into the right foot. 50% stenosis of the left common femoral artery at its origin with a 40% stenosis of the left superficial femoral artery in the proximal thigh. High-grade stenosis of the left popliteal artery at its origin. Two-vessel runoff in the left calf and single diseased vessel runoff into the left foot. Perhaps improving the inflow (within the left common femoral, superficial femoral and popliteal arteries) may improve the blood supply to the left foot. IN ADDITION: Moderate right-sided pleural effusion with adjacent compressive atelectasis. Multiple subcentimeter nodules within the visualized portions of the bilateral lung bases, for which metastatic disease is suspected. Dedicated CT examination of the chest may be performed for further evaluation. Indeterminate focus adjacent to the fundus of the gallbladder within segment 4 of the liver (as detailed above) increased in size from 2020 examination for which focused ultrasound examination is recommended for further characterization, as this may simply be an extension of the bladder fundus. Indeterminate enhancement of the spleen, likely secondary to flow differentials. Significant distention of the urinary bladder (although not with contrast excretion) for which decompression is recommended. Labs Labs: Laboratory Results - last 24 hr 12/10/24 12/11/24 12/11/24 18:40 01:24 02:11 WBC RBC Hgb Hct MCV MCH MCHC RDW Plt Count MPV Immature Gran % (Auto) Neut % (Auto) Lymph % (Auto) [place] % (Auto) Eos % (Auto) Baso % (Auto) Lymph # (Auto) [place] # (Auto) Eos # (Auto) Baso # (Auto) Abs Immat Gran (auto) Absolute Neuts (auto) Absolute Nucleated RBC Nucleated RBC % APTT Sodium Potassium Chloride Carbon Dioxide Anion Gap BUN Creatinine Estim Creat Clear Calc Estimated GFR Glucose POC Capillary Glucose 76 71 115 H Calcium Phosphorus Magnesium Transferrin Total Bilirubin AST ALT Alkaline Phosphatase Total Protein Albumin 12/11/24 12/11/24 12/11/24 05:50 06:41 08:25 WBC 8.6 RBC 3.44 L Hgb 9.8 L Hct 32.1 L MCV 93.3 MCH 28.5 MCHC 30.5 L RDW 15.5 H Plt Count 276 MPV 9.9 Immature Gran % (Auto) 0.7 H Neut % (Auto) 77.4 H Lymph % (Auto) 10.1 L [place] % (Auto) 9.4 H Eos % (Auto) 1.5 Baso % (Auto) 0.9 Lymph # (Auto) 0.87 L [place] # (Auto) 0.8 H Eos # (Auto) 0.1 Baso # (Auto) 0.1 Abs Immat Gran (auto) 0.06 H Absolute Neuts (auto) 6.7 Absolute Nucleated RBC 0.000 Nucleated RBC % 0.0 APTT 36.4 Sodium 139 140 Potassium 4.3 4.5 Chloride 101 103 Carbon Dioxide 26 24 Anion Gap 12 13 H BUN 26 H D 26 H Creatinine 4.56 H 4.38 H Estim Creat Clear Calc 18 18 Estimated GFR 13 L 14 L Glucose 84 84 POC Capillary Glucose 80 Calcium 8.3 L 8.4 Phosphorus 6.0 H Magnesium 2.2 2.2 Transferrin 90 L Total Bilirubin 0.9 1.0 AST 24 26 ALT 14 14 Alkaline Phosphatase 100 104 Total Protein 7.6 7.7 Albumin 3.4 L 3.3 L
--- NOTE | 2024-12-11 17:00 | PC.NURSE ---
Pt has signed over to [facility]. Pt would like to discharge home. orders to dc from hospitalist.
--- NOTE | 2024-12-30 10:11 | PM.DS ---
DS: Admitting Diagnosis Discharge Date 12/11/24 Admitting Diagnosis Diabetic infection left foot DS: Discharge Diagnosis Discharge Diagnosis (1) Diabetic infection of left foot: Code(s): E11.628 - Type 2 diabetes mellitus with other skin complications; L08.9 - Local infection of the skin and subcutaneous tissue, unspecified Status: Acute Assessment and Plan: Erythema and edema to the dorsal aspect of the left foot extending to the ankle. Unable to palpate DP pulses. Black foul smelling 2nd toe of the left foot. Foot XR left showed moderate soft tissue swelling of the second digit with poor visualization fo the distal phalanx. Osteomyelitis cannot be rule out. Also extra articular fracture to the left fifth proximal phalanx, Duplex showed no evident hemodynamically significant stenosis either by follow-up elevation of peak systolic velocities or by direct visualization grayscale imaging with brisk systolic upstrokes arteries of the bilateral lower limbs. General surgery consulted and appreciate their input. Patient with a gangrenous left 2nd toe with diabetic foot infection s/p open transmetatarsal amputation left 2nd toe on 11/29 Foot MRI Results showing a 2.4 x 1.8 x 3.3 cm peripherally enhancing fluid collection at the second interspace at the level the proximal metatarsal shafts is compatible with abscess. Diffuse myositis of the plantar musculature of the foot. No evidence for osteomyelitis or fracture. Patient went back to the OR for an excisional debridement skin subcutaneous muscle left foot 2 x 2 x 1 cm or 4 cm3 Continue IV abx. Dressing changes per surgery Continue to mi=onitor closely. (2) Necrotizing soft tissue infection: Code(s): M79.89 - Other specified soft tissue disorders Status: Acute Assessment and Plan: Abscess noted on MRI detailed above (3) Gangrenous toe: Code(s): I96 - Gangrene, not elsewhere classified Status: Acute Assessment and Plan: s/p amputation. As above (4) Aspiration pneumonia: Code(s): J69.0 - Pneumonitis due to inhalation of food and vomit Status: Acute Assessment and Plan: Per patient son, the patient has been coughing with meals for a few months. CXR: Opacities in the right mid and lower lung zones which could represent atelectasis, aspiration and/or pneumonia. Small right pleural effusion. Patient continues to fail modified barium swallow at this time so PPN started Etiology of the dysphagia probably related to hx of multiple strokes. GI consulted for peg tube placement unsure if they will wait until we have source control NpO for G tube placement (5) Aortic stenosis: Code(s): I35.0 - Nonrheumatic aortic (valve) stenosis Status: Acute Assessment and Plan: KATLIN negative for infective endocarditis but does shows severe aortic stenosis with ALBINO of 0.9cm2. Will arrange outpatient follow up for his valvular disease. Avoid hypotension (6) Type 2 diabetes mellitus: Code(s): E11.9 - Type 2 diabetes mellitus without complications Status: Acute Assessment and Plan: A1c 5.9%. The patient's blood glucose was reviewed on 12/09 Glucose remains well controlled. Continue AccuCheks covering with sliding scale. Hypoglycemia protocol available as needed. Continue to monitor (7) Anemia: Code(s): D64.9 - Anemia, unspecified Status: Chronic Assessment and Plan: Chronic, likely secondary to ESRD Given epoetin 10,000 units x1 on 11/27 No signs of active bleeding Monitor H&H Tranfuse of hgb <7.0 (8) Carotid artery disease: Qualifiers: Carotid artery disease type: stenosis Laterality: unspecified laterality Qualified Code(s): I65.29 - Occlusion and stenosis of unspecified carotid artery Code(s): I77.9 - Disorder of arteries and arterioles, unspecified Status: Chronic Assessment and Plan: Continue Plavix post surgery once NGT is in place. (9) Hypertension: Qualifiers: Hypertension type: unspecified Qualified Code(s): I10 - Essential (primary) hypertension Code(s): I10 - Essential (primary) hypertension Status: Chronic Assessment and Plan: Patient's blood pressure was reviewed on 12/10 Blood pressure remains reasonably well controlled. Amlodipine 10 mg daily, coreg 25 mg BID, hydralazine 50 mg TID placed on hold due to patient NPO Hydralazine 10 mg IV scheduled TID added. (10) End stage renal disease on dialysis: Code(s): N18.6 - End stage renal disease; Z99.2 - Dependence on renal dialysis Status: Acute Assessment and Plan: Patient with ESRD on dialysis [facility] Nephrology consulted and appreciate their input Pharmacy to dose antibiotic (11) Heart failure with preserved ejection fraction: Qualifiers: Heart failure chronicity: unspecified Qualified Code(s): I50.30 - Unspecified diastolic (congestive) heart failure Code(s): I50.30 - Unspecified diastolic (congestive) heart failure Status: Chronic Assessment and Plan: Chronic, does not appear in acute exacerbation clinically Echo as above Monitor clinically. HD to control fluid status. Plan to follow up with primary environmental lawyer outpatient. Okay to stop tele (12) Encephalopathy: Code(s): G93.40 - Encephalopathy, unspecified Status: Acute Assessment and Plan: On 11/30/2024: Severely lethargic with a right side lean and associated right gaze. His voice was increasingly garbled and his responses were slow. Remained AOx3 with otherwise benign neuro exam. Likely metabolic vs drug induced (received morphine overnight) encephalopathy. - ABG: pH 7.538, pCO2 35.8, pO2 53.2, HCO3 29.8. Started on 2L NC for hypoxemia. - Lactic WNL. Procal elevated at 6.1. Glucose WNL. - Head CT 11/30: Unchanged small old infarcts in the right frontal lobe, abdelrahman, right lentiform nucleus and left thalamus. No acute intracranial process. Age-related changes including mild diffuse volume loss and moderate scattered white matter hypoattenuation consistent with chronic small vessel ischemic disease. Morphine was discontinued Monitor mental status. Plan Code status: Full code per patient DVT prophylaxis: SCD DS: Summary Hospital Course Hospital Course: Patient was admitted with infection of left foot. Patient also has diabetes. patient was treated with Iv anabiotics and insulin. No complications during the stay in the hospital. follow up arranged Time Spent with Patient Time attestation: Total time spent providing and/or coordinating discharge services: Exam Narrative: AF 98.0 148/72 66 16 98% ra Gen - NARD lying flat in bed Chest - few basilar rhonchi o/w clear. nml RR CV - RRR S1/S2 with 2/6 systolic murmur heard t/o the precordium. Abd - Soft, NT/ND, Positive BS Ext - No pedal edema. left foot/ankle dressing clean, dry and intact. Distal pulses weak. Left upper arm thrill and bruit at fistual site Neuro - Alert and oriented x4. Garbled speech Psych - odd affect Skin - Warm and dry DS: Data Data Completed and Pending Completed studies during hospitalization: Pending at discharge 06/16/25 16:10 Surgical [PTH] Routine Surgical [PTH] Routine Discharge Plan Discharge Consulting providers: Maliha Bragg; Catalina Huddleston; Kaveh Goodson; Sharon Gonzalez; Brian Michelle; Katey Cortes; Kishan Hightower; Victor M Mehta; Giovanna Angela; Mario Donohue; Jordan Lomas; Gilma Ivey; Suzanne Merrill; Jin Fernandez; Mariella Cox; Patel Rodriguez; Tam Barrett; Schuyler Monterroso; Dc Vasquez Jr.; Selwyn Pearce; Faisal Mckenzie; Aldair Bhat; Jimmy Reyna; Hai Meeks; Kavin Pizarro; Archana Mccall; Gal Manning Discharging Clinician: Wiley Means Patient Disposition: Hospice - Home Activity: as tolerated Diet: as tolerated Wound Care Instructions: other - see discharge instructions Patient Language: Japanese Stand Alone Forms: General Discharge Information Discharge Medications: Continued atorvastatin 80 mg tablet 80 mg PO DAILY carvedilol 25 mg tablet 25 mg PO BID clopidogrel 75 mg tablet 75 mg PO DAILY amlodipine 10 mg tablet 10 mg PO DAILY hydralazine 50 mg tablet 50 mg PO TID Date of admission: 11/26/24 14:14 Primary Care Provider: Vincenzo,Schuyler Motta Admitting Provider: Corby Aly Attending physician on admission: Wiley Means Condition: Stable Quality VTE Prophylaxis VTE prophylaxis: mechanical ordered
== END 2024-12-11 18:21 | disposition hospice, home (50) | DRG 255 ==
LOC: ANHED 12:13 → ANH3MED 15:36
PROVIDERS: Internal Medicine; Internal Medicine Gastroenterology; Internal Medicine Nephrology; Nurse Practitioner Family; Nurse Practitioner Gerontology; Student in an Organized Health Care Education/Training Program; Surgery; Admitting Provider General Practice; Emergency Provider Student in an Organized Health Care Education/Training Program; PCP Internal Medicine; Visit Provider Internal Medicine
PROC: 0Y6S0Z1 Detachment at Left 2nd Toe, High, Open Approach (ICD-10-PCS; principal; 2024-11-29 16:00)
PROC: B24BZZ4 Ultrasonography of Heart with Aorta, Transesophageal (ICD-10-PCS; CPT 93312; principal; 2024-12-01 13:00)
PROC: 0KBW0ZZ Excision of Left Foot Muscle, Open Approach (ICD-10-PCS; principal; 2024-12-08 15:00)
PROC: 0DH63UZ Insertion of Feeding Device into Stomach, Percutaneous Approach (ICD-10-PCS; CPT 43246; principal; 2024-12-10 15:30)
DX: E11.52 Type 2 diabetes mellitus with diabetic peripheral angiopathy with gangrene (principal); G92.8 Other toxic encephalopathy; N18.6 End stage renal disease; G93.41 Metabolic encephalopathy; J69.0 Pneumonitis due to inhalation of food and vomit; R78.81 Bacteremia; I13.2 Hypertensive heart and chronic kidney disease with heart failure and with stage 5 chronic kidney disease, or end stage renal disease; I50.32 Chronic diastolic (congestive) heart failure; L03.116 Cellulitis of left lower limb; I96 Gangrene, not elsewhere classified; L02.612 Cutaneous abscess of left foot; I69.391 Dysphagia following cerebral infarction; T40.2X5A Adverse effect of other opioids, initial encounter; E11.9 Type 2 diabetes mellitus without complications; B95.62 Methicillin resistant Staphylococcus aureus infection as the cause of diseases classified elsewhere; D63.1 Anemia in chronic kidney disease; E78.5 Hyperlipidemia, unspecified; E11.22 Type 2 diabetes mellitus with diabetic chronic kidney disease; I35.0 Nonrheumatic aortic (valve) stenosis; Z66 Do not resuscitate; F17.210 Nicotine dependence, cigarettes, uncomplicated; Z99.2 Dependence on renal dialysis; Z79.02 Long term (current) use of antithrombotics/antiplatelets; R90.89 Other abnormal findings on diagnostic imaging of central nervous system
CPT/HCPCS: 36415; 36600; 43246; 70450; 70553; 71046; 73630; 73719; 73720; 74230; 75635; 80048; 80053; 80069; 80202; 82565; 82805; 82948; 83036; 83605; 83735; 84100; 84145; 84466; 84478; 85018; 85025; 85610; 85730; 86140; 86706; 86850; 86900; 86901; 87040; 87070; 87075; 87181; 87205; 87340; 87493; 87641; 88305; 88311; 92507; 92526; 92610; 92611; 93005; 93312; 93320; 93325; 93925; 96365; 96367; 96368; 99285; A9270; A9577; C1751; C8929; G0257; J0360; J0692; J0696; J1644; J1741; J1836; J2003; J2270; J2405; J2704; J3010; J3370; J7030; J7040; J7042; J7120; Q5105; Q5106; Q9957; Q9967